=== PATIENT | female | born 1995 | race Caucasian/White ===

== ENCOUNTER 2023-11-25 15:06 | Emergency (ER) | payer BC, OTHER, SELFPAY ==
[2023-11-25] VITALS (20 sets, daily range): BP systolic 111–168; BP diastolic 20–95; PULSE 85–125; TEMP 36.8; O2SAT 97–99
--- NOTE | 2023-11-25 15:36 | ECG_ITS ---
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
--- NOTE | 2023-11-25 15:36 | XR_ITS ---
[facility] [id number] Patient Name: SUZANNE DAI MRN: [id number] date: 1995 Sex: F Assigned Patient Location: ER Current Patient Location: ED.MAIN Accession/Order Number: [id number] Exam Date: 11/25/2023 16:05 Report Date: 11/25/2023 16:27 At the request of: ELZA SCHULTZ Procedure: XR chest 1V EXAM: XR chest 1V HISTORY: SHORTNESS OF BREATH COMPARISON: None TECHNIQUE: AP view of the chest was obtained with portable technique at 3:58 PM. FINDINGS: Heart and mediastinal contours are unremarkable in appearance. No acute infiltrate or consolidations are seen. There is no obvious pneumothorax. Slight convexity of the dorsal spine to the right. XR/XR chest 1V IMPRESSION: No acute process seen in the chest. Electronically authenticated by: REGINALD BECK Date: 11/25/2023 16:27
--- NOTE | 2023-11-25 15:37 | ED.GENADUL1 ---
HPI HPI - General Adult General Chief complaint: Anxiety Stated complaint: sob, dizziness feels like passing out Time Seen by Provider: 11/25/23 15:32 Source: patient Mode of arrival: walk-in Limitations: no limitations History of Present Illness HPI narrative: 28-year-old female presents for feeling anxious and feels like her heart is going to jump out of her chest and she is short of breath. This started 45 minutes prior to arrival while she was at work. She has not had any recent stressful events and has no history of anxiety or panic attacks. No recent fever cough chest pain or similar symptoms. Symptoms have been continuous. Related Data Previous Rx's ?Medication ?Instructions ?Recorded alprazolam 0.5 mg tablet (Xanax) 0.5 mg PO TID PRN anxiety #14 tabs 11/25/23 Allergies Allergy/AdvReac Type Severity Reaction Status Date / Time amoxicillin [From Augmentin] Allergy Mild Rash Verified 11/25/23 15:21 clavulanic acid Allergy Mild Rash Verified 11/25/23 15:21 [From Augmentin] Sulfa (Sulfonamide Allergy Mild Rash Verified 11/25/23 15:21 Antibiotics) sulfamethoxazole Allergy Mild Rash Verified 11/25/23 15:21 [From Bactrim] trimethoprim [From Bactrim] Allergy Mild Rash Verified 11/25/23 15:21 Opioid HPI Opioid Management Most Recent Opioid Data: No Data to Display Review of Systems ROS Narrative A ten point review of systems is negative except as noted above. Exam Narrative Exam Narrative: Nurses note and vital signs reviewed and patient is not hypoxic. General: The patient appears in no acute respiratory distress Skin: Warm, dry, no pallor noted. There is no rash noted. Head: Normocephalic, atraumatic Eye: Normal conjunctiva, no drainage Ears, Nose, Mouth, and Throat: oral mucosa is moist. Nares patent. Cardiovascular: Regular Rate and Rhythm, tachycardia Respiratory: Patient is in no distress, no accessory muscle use, lungs are clear to auscultation, no wheezing, rales or rhonchi Back: non-tender GI: Soft and nontender Musculoskeletal: The patient has no evidence of calf tenderness, no pitting edema, symmetrical pulses noted bilaterally Neurological: A&O, normal speech, ambulatory without Psychiatric: Cooperative, anxious in appearance Constitutional Vital Signs, click to edit/add: Last Vital Signs Temp 98.2 F 05/24/24 15:21 Pulse 90 11/25/23 16:50 Resp 17 11/25/23 16:50 BP 111/94 H 11/25/23 16:42 Pulse Ox 97 11/25/23 15:33 O2 Del Method Room Air 11/25/23 15:21 Course Vital Signs Vital signs: Vital Signs Blood Pressure 142/77 H 11/25/23 14:44 Temperature 98.2 F 11/25/23 15:21 Pulse Rate 90 11/25/23 16:50 Respiratory Rate 17 11/25/23 16:50 Blood Pressure 111/94 H 11/25/23 16:42 Pulse Oximetry 97 11/25/23 15:33 Oxygen Delivery Method Room Air 11/25/23 15:21 Medical Decision Making MDM Narrative Medical decision making narrative: Her medical workup is negative. She was feeling improved after IV Ativan and will be sent home on a short course of Xanax. Findings were discussed thoroughly with the patient. Differential Diagnosis Differential Diagnosis: Anxiety, palpitations, cardiac dysrhythmia Lab Data Lab results reviewed: Yes I reviewed the patient's lab results Labs: Lab Results 11/25/23 Range/Units 15:43 WBC 11.9 H (4.0-11.0) 10^3/uL RBC 5.03 (4.20-5.40) 10^6/uL Hgb 15.3 (12.0-16.0) g/dL Hct 44.3 (36.0-48.0) % MCV 88.1 (81.0-99.0) fL MCH 30.4 (26.7-34.0) pg MCHC 34.5 (29.9-35.2) g/dL RDW 12.1 (11.0-15.0) % Plt Count 233 (150-450) 10^3/uL MPV 10.4 (9.5-13.5) fL Neut % (Auto) 61.1 (43.0-75.0) % Lymph % (Auto) 27.2 (20.5-60.0) % Davis % (Auto) 6.1 (1.7-12.0) % Eos % (Auto) 4.5 (0.9-7.0) % Baso % (Auto) 0.7 (0.2-2.0) % Neut # (Auto) 7.3 H (1.4-6.5) 10^3/uL Lymph # (Auto) 3.2 (1.2-3.8) 10^3/uL Davis # (Auto) 0.7 (0.3-0.8) 10^3/uL Eos # (Auto) 0.5 (0.0-0.7) 10^3/uL Baso # (Auto) 0.1 (0.0-0.1) 10^3/uL Abs Immat Gran (auto) 0.05 H (0.00-0.03) 10^3/uL Imm/Tot Granulo (auto) 0.4 (0.0-0.5) % Sodium 138 (136-145) mmol/L Potassium 3.4 L (3.5-5.1) mmol/L Chloride 102 (98-107) mmol/L Carbon Dioxide 21.9 (21.0-32.0) mmol/L Anion Gap 17.5 BUN 7.0 (7.0-18.0) mg/dL Creatinine 0.77 (0.55-1.02) mg/dL Est GFR ( Amer) >60 (>=60) Est GFR (Non-Af Amer) >60 (>=60) BUN/Creatinine Ratio 9.1 Glucose 123 H (74-106) mg/dL Calcium 9.8 (8.5-10.1) mg/dL Serum HCG, Qual Negative (NEGATIVE) Imaging Data Chest x-ray: Radiologist's impression: ITS Impressions Chest X-Ray 11/25/23 15:36 IMPRESSION: No acute process seen in the chest. Electronically authenticated by: REGINALD BECK Date: 11/25/2023 16:27 ECG Data Attestation: I personally reviewed and interpreted this ECG as follows: (EKG on my interpretation shows sinus tachycardia with a rate of 128) Discharge Plan Discharge Stand Alone Forms: Portal Instructions Chief Complaint: Anxiety Clinical Impression: Acute anxiety Patient Disposition: Home, Self-Care Time of Disposition Decision: 17:15 Condition: Good Mode of Transportation: Private Vehicle Prescriptions / Home Meds: New alprazolam [Xanax] 0.5 mg tablet 0.5 mg PO TID PRN (Reason: anxiety) Qty: 14 0RF Print Language: [place] Instructions: Anxiety (ED) Referrals: Physician,Non-Staff, MD [Primary Care Provider] - 1 week
[2023-11-25] MEDS: LORAZEPAM 2 MG/ML VIAL 0.5 MG IV (15:47)
[2023-11-25 16:20] LABS: Basophils Absolute Auto 0.1 10^3/uL (0.0-0.1); Basophils Percent Auto 0.7 % (0.2-2.0); Eosinophils Absolute Auto 0.5 10^3/uL (0.0-0.7); Eosinophils Percent Auto 4.5 % (0.9-7.0); Hematocrit 44.3 % (36.0-48.0); Hemoglobin 15.3 g/dL (12.0-16.0); Immature Granulocytes Abs Auto 0.05 10^3/uL (0.00-0.03); Immature Granulocytes Pct Auto 0.4 % (0.0-0.5); Lymphocytes Absolute Auto 3.2 10^3/uL (1.2-3.8); Lymphocytes Percent Auto 27.2 % (20.5-60.0); Mean Corpuscular HGB Conc 34.5 g/dL (29.9-35.2); Mean Corpuscular Hemoglobin 30.4 pg (26.7-34.0); Mean Corpuscular Volume 88.1 fL (81.0-99.0); Mean Platelet Volume 10.4 fL (9.5-13.5); Monocytes Absolute Auto 0.7 10^3/uL (0.3-0.8); Monocytes Percent Auto 6.1 % (1.7-12.0); Neutrophils Absolute Auto 7.3 10^3/uL (1.4-6.5); Neutrophils Percent Auto 61.1 % (43.0-75.0); Platelet Count 233 10^3/uL (150-450); Red Blood Count 5.03 10^6/uL (4.20-5.40); Red Cell Distribution Width 12.1 % (11.0-15.0); White Blood Count 11.9 10^3/uL (4.0-11.0)
[2023-11-25 16:27] LABS: Anion Gap 17.5; BUN Creatinine Ratio 9.1; Calcium 9.8 mg/dL (8.5-10.1); Carbon Dioxide 21.9 mmol/L (21.0-32.0); Chloride 102 mmol/L (98-107); Estimated GFR (African America >60 (>=60); Estimated GFR (Non-African Ame >60 (>=60); Glucose 123 mg/dL (74-106); Potassium 3.4 mmol/L (3.5-5.1); Sodium 138 mmol/L (136-145)
[2023-11-25 16:30] LABS: HCG Qualitative NEGATIVE (NEGATIVE)
== END 2023-11-25 17:37 | disposition home or self-care (01) ==
PROVIDERS: Emergency Provider Emergency Medicine
DX: F41.9 Anxiety disorder, unspecified (principal)
CPT/HCPCS: 36415; 71045; 80048; 84703; 85025; 93005; 96374; 99285

== ENCOUNTER 2024-04-23 11:53 | Emergency (ER) | payer BC, SELFPAY ==
[2024-04-23] VITALS (15 sets, daily range): BP systolic 109–143; BP diastolic 73–101; PULSE 73–90; TEMP 37; O2SAT 94–100; BMI 32.8
--- OUTSIDE RECORDS SUMMARY | 2024-04-23 12:04 | XMS_ITS | CCD ---
Author Organization [facility] Care Team Providers Care Scrap Sawyer Name Role Phone DR ESTHER ALLISON Admitting Unavailable DRAKE, DR SANTANA Attending Unavailable DRAKE, DR SANTANA Consulting Unavailable Easterwood, Shawna Unavailable NONE, XXXX Primary Care Physician Unavailab SIXTO Dodson Referring Unavailable SIXTO ORELLANA Attending Unavailable SIXTO ORELLANA Referring Unavailable SHAWNA DE JESUS Primary Care Physician Shivam Alvarez Attending Unavailable TAYA BALDERRAMA Attending Unavailable MAYRA, IRIS Stanford Attending UnavailMamta Bowden Attending Unavailable IRIS DE JESUS Attending Unavailable IRIS DE JESUS Admitting Unavailable DO Jesica Mccabe Attending Unavailable YOVANI De Jesus Primary Care Provider YOVANI De Jesus Attending Provider [phone] Shawna De Jesus Attending Unavailable Shawna De Jesus Primary Care Unavailable Shawna De Jesus Admitting Unavailable Mamta Us H Attending Unavailable Juliana Barton Attending Unavailable Juliana Barton Attending Unavailable SHAWNA DE JESUS Admitting Unavailable SHAWNA DE JESUS Attending Unavailable Jesica Mccabe Attending Unavailable Lev LACKEY Attending Unavailable SHAWNA DE JESUS Referring Unavailable Allergies Allergy Classification Reported Allergen(s) Allergy Type Date of Onset Reaction(s) Facility (7 sources) Amoxicillin / Clavulanate; Translations: [Augmentin] Drug Allergy 07-04-19 11 hives, vomiting [facility] (1 source) Sulfamethoxazole / Trimethoprim Drug Allergy 07-04-19 11 [facility] (9 sources) Amoxicillin / Clavulanate; Translations: [amoxicillin-clavul anate] Drug Allergy hives, vomiting [facility] (17 sources) Sulfamethoxazole / Trimethoprim; Translations: [sulfamethoxazole-t rimethoprim] Drug Allergy hives, vomiting [facility] (6 sources) Amoxicillin; Translations: [amoxicillin] Drug Allergy 11-29-19 Hives, hives, vomiting [facility] (6 sources) Clavulanate; Translations: [clavulanic acid] Drug Allergy 11-29-19 Hives, hives, vomiting [facility] (6 sources) Sulfamethoxazole; Translations: [sulfamethoxazole] Drug Allergy 11-29-19 Hives, hives, vomiting [facility] (6 sources) Sulfonamides (Antibiotic); Translations: [Sulfa (Sulfonamide Antibiotics)] Propensity to adverse reactions 11-29-19 [facility] (6 sources) Trimethoprim; Translations: [trimethoprim] Drug Allergy 11-29-19 Hives, hives, vomiting [facility] (4 sources) Sulfamethoxazole / Trimethoprim; Translations: [Septra] Drug Allergy [facility] (4 sources) Sulfamethoxazole / Trimethoprim; Translations: [Bactrim] Drug Allergy [facility] Medications Current Medications Medication Drug Class(es) Dates Sig (Normalized) Sig (Original) busPIRone hydrochloride 5 mg oral tablet (2 sources) Start: 04-05-2024 take 1 tablet by mouth three times daily busPIRone 5 mg Tab 5 mg = 1 tab(s), Oral, TID, # 90 tab(s), Refills(s) 0, Pharmacy: [facility] #[id number], 160, cm, 04/05/24 9:37:00 EDT, Height/Length Dosing, 83.7, kg, 04/05/24 9:37:00 EDT, Weight Dosing Start Date: 04/05/24 Status: Ordered dicyclomine hydrochloride 10 mg oral capsule (4 sources) Anticholinergic Start: 01-10-2024 dicyclomine 10 mg Cap Refills(s) 0 Start Date: 01/10/24 Status: Ordered Start: 12-28-2023 End: 01-04-2024 take 1 capsule by mouth four times daily Bentyl 10 mg Cap 10 mg = 1 cap(s), Oral, QID, X 7 day(s), # 28 cap(s), Refills(s) 0, [facility]: [id number], 160, cm, 12/28/23 10:54:00 EDT, Height/Length Dosing, 81.7, kg, 12/28/23 10:54:00 EDT, Weight Dosing Start Date: 12/28/23 Stop Date: 01/04/24 Status: Ordered ergocalciferol 1.25 mg oral capsule (3 sources) Provitamin D2 Compound Start: 03-19-2024 take 1250 ug by mouth every week Ergocalciferol (Vitamin D2) Active 1250 MCG PO every week March 19, 2024 12:00am levonorgestrel 0.479366 mg/hr intrauterine system (9 sources) Progestin, Progestin-containi ng Intrauterine Device Start: 11-25-2023 Levonorgestrel Active 1 DEVICE INTRAUTERI As Directed November 25, 2023 12:00am Mirena (52 MG) 2 0 MCG/DAY as directed Intrauterine Active linaclotide 0.145 mg oral capsule (2 sources) Guanylate Cyclase-C Agonist Start: 01-10-2024 take 1 capsule by mouth once daily Linzess 145 mcg oral capsule 145 mcg = 1 cap(s), Oral, Daily, # 30 cap(s), Refills(s) 5, [facility][id number], 160, cm, 01/10/24 13:34:00 EDT, Height/Length Dosing, 85, kg, 01/10/24 13:34:00 EDT, Weight Dosing Start Date: 01/10/24 Status: Ordered naproxen 500 mg oral tablet (5 sources) Nonsteroidal Anti-inflammatory Drug Start: 02-10-2023 take 1 tablet by mouth twice daily as needed for pain naproxen 500 mg Tab 500 mg = 1 tab(s), Oral, BID, PRN for pain, # 20 tab(s), Refills(s) 0, [facility]acy: [facility] #[id number], 160, cm, 02/10/23 1:25:00 EDT, Height/Length Dosing, 81.4, kg, 02/10/23 1:25:00 EDT, Weight Dosing Start Date: 02/10/23 Status: Ordered oxyCODONE hydrochloride 5 mg oral capsule (3 sources) Opioid Agonist Start: 02-10-2023 oxyCODONE 5 mg Cap 5 mg = 1 cap(s), Oral, q6hr, PRN Pain 8-10, # 4 cap(s), Refills(s) 0, [facility]acy: [facility][id number], 160, cm, 02/10/23 1:25:00 EDT, Height/Length Dosing, 81.4, kg, 02/10/23 1:25:00 EDT, Weight Dosing Start Date: 02/10/23 Status: Ordered pantoprazole 40 mg delayed release oral tablet (4 sources) Proton Pump Inhibitor Start: 12-28-2023 take 1 tablet by mouth once daily Protonix 40 mg Tab-DR 40 mg = 1 tab(s), Oral, Daily, # 30 tab(s), Refills(s) 0, [facility]: [facility] #[id number], 160, cm, 12/28/23 10:54:00 EDT, Height/Length Dosing, 81.7, kg, 12/28/23 10:54:00 EDT, Weight Dosing Start Date: 12/28/23 Status: Ordered sucralfate 1000 mg oral tablet (4 sources) Aluminum Complex Start: 01-10-2024 take 1 tablet by mouth four times daily sucralfate 1 g Tab take 1 tablet by mouth four times a day for 7 days Start Date: 01/10/24 Status: Ordered Start: 12-28-2023 End: 01-04-2024 take 1 tablet by mouth four times daily Carafate 1 gram Tab 1 gm = 1 tab(s), Oral, QID, X 7 day(s), # 28 tab(s), Refills(s) 0, [facility]acy: [facility] #[id number], 160, cm, 12/28/23 10:54:00 EDT, Height/Length Dosing, 81.7, kg, 12/28/23 10:54:00 EDT, Weight Dosing Start Date: 12/28/23 Stop Date: 01/04/24 Status: Ordered tenapanor 50 mg oral tablet (2 sources) Start: 04-05-2024 take 1 tablet by mouth twice daily Ibsrela 50 mg oral tablet 50 mg = 1 tab(s), Oral, BID, # 30 tab(s), Refills(s) 4, [id number], 160, cm, 04/05/24 9:37:00 EDT, Height/Length Dosing, 83.7, kg, 04/05/24 9:37:00 EDT, Weight Dosing Start Date: 04/05/24 Status: Ordered Zofran ODT 4 mg Tab-Dis (9 sources) Start: 12-28-2023 take 1 tablet by mouth every eight hours as needed for nausea Zofran ODT 4 mg Tab-Dis 4 mg = 1 tab(s), Oral, q8hr, PRN Nausea/Vomiting, # 20 tab(s), Refills(s) 0, Pharmacy: [facility] #[id number], 160, cm, 12/28/23 10:54:00 EDT, Height/Length Dosing, 81.7, kg, 12/28/23 10:54:00 EDT, Weight Dosing Start Date: 12/28/23 Status: Ordered Start: 02-10-2023 take 1 tablet by pippa th every eight hours as needed for nausea Zofran ODT 4 mg Tab-Dis 4 mg = 1 tab(s), Oral, q8hr, PRN Nausea/Vomiting, # 12 tab(s), Refills(s) 0, Pharmacy: [facility] #[id number], 160, cm, 02/10/23 1:25:00 EDT, Height/Length Dosing, 81.4, kg, 02/10/23 1:25:00 EDT, Weight Dosing Start Date: 02/10/23 Status: Ordered Completed/Discontinued Medications Medication Drug Class(es) Dates Sig (Normalized) Sig (Original) ALPRAZolam 0.5 mg oral tablet (5 sources) Benzodiazepine Start: 11-29-2023 End: 03-13-2024 take 1 tablet by mouth three times daily Alprazolam (Xanax) 0.5 mg tablet Discontinued 0.5 MG PO Three times daily November 29, 2023 12:00am March 13, 2024 3:51pm [facility]24 fluconazole 150 mg oral tablet (3 sources) Azole Antifungal Start: 03-19-2024 End: 04-17-2024 Fluconazole Discontinued 150 MG PO Q3D 3 March 19, 2024 12:00am April 17, 2024 3:40pm promethazine hydrochloride 25 mg oral tablet (3 sources) Phenothiazine Start: 05-28-2016 take 1 tablet by mouth every six hours for nausea and vomiting Phenergan 25 mg Tab 25 mg = 1 tab(s), Oral, q6hr, Take one by mouth every six hours for nausea and vomiting, # 10 tab(s), Refills(s) 0 Start Date: 05/28/16 Status: Ordered sodium fluoride 0.011 mg/mg toothpaste (5 sources) Start: 11-29-2023 End: 03-13-2024 Fluoride (Sodium) (Sf 5000 Plus) 1.1 % cream Discontinued 1 APPLIC DENTAL Daily November 29, 2023 12:00am March 13, 2024 3:51pm Problems Active Problems Problem Classification Problem Date Documented Da te Episodic/Chronic Abdominal pain (20 sources) Abdominal pain; Translations: [Unspecified abdominal pain] Onset: 02-10-2023 Episodic Conditions associated with dizziness or vertigo (4 sources) Dizziness; Translations: [Dizziness and giddiness] 03-13-2024 Episodic Genitourinary symptoms and ill-defined conditions (20 sources) Dysuria; Translations: [Dysuria] Onset: 03-26-2024 03-13-2024 Episodic Hemorrhoids (10 sources) Hemorrhoids; Translations: [Unspecified hemorrhoids] Episodic Immunizations and screening for infectious disease (1 source) Encounter for screening for human papillomavirus (HPV); Translations: [ENC SCREENING HUMAN PAPILLOMAVIRUS] Onset: 09-15-2021 Episodic Malaise and fatigue (8 sources) Fatigue; Translations: [Other fatigue] 03-13-2024 Episodic Miscellaneous mental health disorders (9 sources) Anxiety about body function or health; Translations: [Other symptoms and signs involving emotional state] 11-29-2023 Episodic Nausea and vomiting (7 sources) Nausea; Translations: [Nausea] Onset: 12-28-2023 Episodic Nonspecific chest pain (6 sources) Chest pain; Translations: [Chest pain, unspecified] 03-16-2024 Episodic Nutritional deficiencies (4 sources) Vitamin D deficiency; Translations: [Vitamin D deficiency, unspecified] 03-21-2024 Chronic Other aftercare (1 source) Encounter for follow-up examination after completed treatment for conditions other than malignant neoplasm Episodic Other connective tissue disease (3 sources) Neuropathic pain; Translations: [Neuralgia and neuritis, unspecified] 03-16-2024 Episodic Other connective tissue disease (5 sources) Neuralgia and neuritis, unspecified; Translations: [Neuralgia, neuritis, and radiculitis, unspecified] 03-13-2024 Episodic Other female genital disorders (2 sources) Pruritus of vagina; Translations: [Other specified noninflammatory disorders of vagina] 03-21-2024 Episodic Other female genital disorders (2 sources) Other specified noninflammatory disorders of vagina; Translations: [Pruritus of genital organs] 03-19-2024 Episodic Other gastrointestinal disorders (11 sources) Chronic idiopathic constipation; Translations: [Chronic idiopathic constipation] 11-25-2023 Chronic Other gastrointestinal disorders (2 sources) Chronic idiopathic constipation Chronic Other gastrointestinal disorders (6 sources) Irritable bowel syndrome characterized by constipation; Translations: [Irritable bowel syndrome with constipation] Onset: 01-10-2024 Chronic Other gastrointestinal disorders (1 source) Diarrhea; Translations: [Diarrhea, unspecified] Onset: 12-28-2023 Episodic Other gastrointestinal disorders (2 sources) Swollen abdomen; Translations: [Abdominal distension (gaseous)] Onset: 01-10-2024 Episodic Other gastrointestinal disorders (4 sources) Abdominal bloating 01-10-2024 Episodic Other screening for suspected conditions (not mental disorders or infectious disease) (11 sources) Encounter for screening for malignant neoplasm of cervix; Translations: [No current problems or disability] Onset: 09-14-2021 Episodic Spondylosis; intervertebral disc disorders; other back problems (10 sources) Low back pain; Translations: [Low back pain] 03-13-2024 Episodic Past or Other Problems Problem Classification Problem Date Documented Da te Episodic/Chronic Unclassified (5 sources) Ankle fracture 06-15-2023 Results Test Name Value Interpretation Reference Range Facility CHEMISTRYOrdered By: SYSTEM SYSTEM on 04-21-2024 CRP [Mass/Vol] 0.6 mg/dL Normal <=1.9mg/dL Remisol Ch em Iron [Mass/Vol] 99 ug/dL Normal 35 - 153 mcg/dL Remisol Chem Iron binding capacity [Mass/Vol] 382 ug/dL Normal 250 - 400 mcg/dL Remisol Chem Transferrin [Mass/Vol] 273 mg/dL Normal 200 - 370 mg/dL Remisol Chem HEMATOLOGYOrdered By: Cyndie Zamarripa on 04-21-2024 ESR (Bld) [Velocity] 10 mm/h Normal 0 - 34 mm/hr FT Lee Ambulatory Visit Summaryon 1 Ambulatory Visit Summary Ambulatory Visi t Summary JACK REA :1995 Visit Date:04/05/2024 Ambulatory Visit Instructions Your Diagnosis Irritable bowel syndrome with constipation Bloating Generalized abdominal pain Nausea and vomiting Your Care Team Attending Physician - Oralia BURKS, Juliana Pruett Primary Care Physician - SHAWNA DE JESUS CNP This Is Your Medications List busPIRone (busPIRone 5 mg Tab) tenapanor (Ibsrela 50 mg oral tablet) Procedures Performed Ts and As - Tonsillectomy and adenoidectomy (1998). Discharge Vitals Heart Rate (Peripheral) 78 Blood Pressure 105/72 Height 160 cm Height 63 in Weight 83.7 kg Weight 184.14 lb BMI 32.7 Medications What How Much When Why Instructions New busPIRone (busPIRone 5 mg Tab) 1 Tablets By Mouth 3 times a day Irritable bowel syndrome with constipation Bloating Generalized abdominal pain Nausea and vomiting Pickup at [facility] #[id number] New tenapanor (Ibsrela 50 mg oral tablet) 1 Tablets By Mouth 2 times a day Irritable bowel syndrome with constipation Bloating Generalized abdominal pain Nausea and vomiting Refills: 4 Pickup at [facility] #[id number] [id number] [address] [place], [place] [id number] [phone] Allergies Augmentin Bactrim Septra (hives, vomiting) Problems Ongoing - Any problem that you are currently receiving treatment for. Bloating Denies Generalized abdominal pain Irritable bowel syndrome with constipation Nausea and vomiting Right flank pain Patient Survey You may receive a survey via text or e-mail asking about your office visit. Please share your experience with us by completing your survey. We appreciate your feedback and thank you for choosing us for your care. [facility] Gastroenterology Office/Clin ic Noteon 04-05-2024 Gastroenterology Office/Clinic Note Gastroenterology Office/Clinic Note Chief Complaint Nausea, bloating Abdominal pain and constiaption. HPI Staff This is a 29 year old female who presents today for a 3 month follow-up with complaints of bloating. Started Linzess 145 at last visit- working? Patient stopped after a few weeks. Increased anxiety and hot flashes. Patient c/o abdomen hard, constant side/ flank pain bilateral and right side more often. Every time she eats she gets nauseas. New onset of headaches within a week. Abdominal pain and nausea worse when she lays down. Alternating bowel habits. Last visit w/ Dr Barton History of Present Illness PT with recurrent flares of abd pain every other day stomach is hard and full more constipated pt moves her bowels once a day but not good BMs some straining and some incomplete evacuation had diarrhea once which is not normal for her pt has been dealing with this for years normal stress 2 vaginal deliveries no hx of abuse pt feels gassy and bloated pt tried some OTC laxatives- miralax and duculoax on Levsin Assessment/Plan 1. Right flank pain (R10.9: Unspecified abdominal pain) 2. Nausea and vomiting (R11.2: Nausea with vomiting, unspecified) 3. Irritable bowel syndrome with constipation (K58.1: Irritable bowel syndrome with constipation) 4. Generalized abdominal pain (R10.84: Generalized abdominal pain) 5. Bloating (R14.0: Abdominal distension (gaseous)) Start Linzess 145 mcg daily and titrate if needed Advised to continue to use MiraLAX/senna and titrate to have 1-2 bowel moods every day Advised to use squatty potty and massage the colon Continue Levsin, PPI, and Carafate Patient will benefit from eating prunes and kiwi fruit Might benefit from neuromodulator in the future Might benefit from other agents for constipation in the future History of Present Illness I have reviewed HPI staff note, most recent labs and imaging, more than 30 minutes spent reviewing the chart, during encounter, placing orders and counseling the patient. Pt anxiety got worse after Linzess also got hot flashes Pt still with constipation : she goes for days without going some feeling that she needs to go but nothing comes out pt with straining no incomplete evacuation feels bloated tried metamucil and fiber and miralax squatty potty did not help bad side pain in both sides good appetite Review of Systems PHQ Score Initial Depression Screen Score: 0 SCORE All systems reviewed, negative except as mentioned above Physical Exam Vitals & Measurements HR: 78(Peripheral) BP: 105/72 HT: 63 in HT: 160 cm WT: 83.7 kg WT: 184.14 lb BMI: 32.7 General: alert, no acute distress HEENT: atraumatic normocephalic Cardiovascular: regular rate and rhythm, normal peripheral perfusion Respiratory: Lungs CTA, respirations non labored Extremities: no deformity, no trauma Abdomen: Benign, soft, nontender nondistended Assessment/Plan 1. Irritable bowel syndrome with constipation (K58.1: Irritable bowel syndrome with constipation) Ordered: busPIRone, 5 mg = 1 tab(s), Oral, TID, # 90 tab(s), Refills(s) 0, Pharmacy: [facility] #[id number], 160, cm, 04/05/24 9:37:00 EDT, Height/Length Dosing, 83.7, kg, 04/05/24 9:37:00 EDT, Weight Dosing tenapanor, 50 mg = 1 tab(s), Oral, BID, # 30 tab(s), Refills(s) 4, Pharmacy: [facility] #[id number], 160, cm, 04/05/24 9:37:00 EDT, Height/Length Dosing, 83.7, kg, 04/05/24 9:37:00 EDT, Weight Dosing 2. Bloating (R14.0: Abdominal distension (gaseous)) Ordered: busPIRone, 5 mg = 1 tab(s), Oral, TID, # 90 tab(s), Refills(s) 0, Pharmacy: [facility] #[id number], 160, cm, 04/05/24 9:37:00 EDT, Height/Length Dosing, 83.7, kg, 04/05/24 9:37:00 EDT, Weight Dosing tenapanor, 50 mg = 1 tab(s), Oral, BID, # 30 tab(s), Refills(s) 4, Pharmacy: [facility] #[id number], 160, cm, 04/05/24 9:37:00 EDT, Height/Length Dosing, 83.7, kg, 04/05/24 9:37:00 EDT, Weight Dosing 3. Generalized abdominal pain (R10.84: Generalized abdominal pain) Ordered: busPIRone, 5 mg = 1 tab(s), Oral, TID, # 90 tab(s), Refills(s) 0, Pharmacy: [facility] #[id number], 160, cm, 04/05/24 9:37:00 EDT, Height/Length Dosing, 83.7, kg, 04/05/24 9:37:00 EDT, Weight Dosing tenapanor, 50 mg = 1 tab(s), Oral, BID, # 30 tab(s), Refills(s) 4, Pharmacy: [facility] #[id number], 160, cm, 04/05/24 9:37:00 EDT, Height/Length Dosing, 83.7, kg, 04/05/24 9:37:00 EDT, Weight Dosing 4. Nausea and vomiting (R11.2: Nausea with vomiting, unspecified) Ordered: busPIRone, 5 mg = 1 tab(s), Oral, TID, # 90 tab(s), Refills(s) 0, Pharmacy: [facility] #[id number], 160, cm, 04/05/24 9:37:00 EDT, Height/Length Dosing, 83.7, kg, 04/05/24 9:37:00 EDT, Weight Dosing linaclotide, 145 mcg = 1 cap(s), Oral, Daily, # 30 cap(s), Refills(s) 5, Pharmacy: [facility] #[id number], 160, cm, 01/10/24 13:34:00 EDT, Height/Length Dosing, 85, kg, 01/10/24 13:34:00 EDT, Weight Dosing tenapanor, 50 mg = 1 tab(s), (more content not included)... Normal [facility] Comment on above: Result Comment: Elec tronically Signed By: Oralia BURKS, Juliana Pruett\.br\Date and Time Signed: 10/03/24 09:54 EDT Alanine aminotransferase [En zymatic activity/volume] in Serum or PlasmaOrdered By: Shawna De Jesus on 03-26-2024 ALT [Catalytic activity/Vol] 18 U/L 7-52 [facility] Comment on above: Performed By: #### C HECTOR DasFX A1C, FE PRO #### [facility] [address] Albumin [Mass/volume] in Ser um or Plasma by Bromocresol green (BCG) dye binding methoOrdered By: Shawna De Jesus on 03-26-2024 Albumin BCG dye [Mass/Vol] 4.6 g/dL 3.5-5.7 [facility] Alkaline phosphatase [Enzyma tic activity/volume] in Serum or PlasmaOrdered By: Shawna De Jesus on 03-26-2024 ALP [Catalytic activity/Vol] 68 U/L 34-104 [facility] Comment on above: Performed By: #### C HECTOR DasFX A1C, FE PRO #### [facility] [address] Aspartate aminotransferase [ Enzymatic activity/volume] in Serum or PlasmaOrdered By: Shawna De Jesus on 03-26-2024 AST [Catalytic activity/Vol] 17 U/L 13-39 [facility] Comment on above: Performed By: #### C HECTOR DasFX A1C, FE PRO #### [facility] [address] Bilirubin Test strip Ql (U)O rdered By: Shawna De Jesus on 03-26-2024 Bilirubin Ql (U) Negative Negative [facility] Bilirubin.total [Mass/volume ] in Serum or PlasmaOrdered By: Shawna De Jesus on 03-26-2024 Bilirubin [Mass/Vol] 0.6 mg/dL 0.3-1.0 [facility] Comment on above: Performed By: #### C HECTOR DasFX A1C, FE PRO #### [facility] [address] CMP with reflex to A1Con Albumin [Mass/Vol] 4.6 g/dL Normal 3.5-5.7 [facility] Comment on above: Performed By: #### C MP wRFX A1C, FE PRO #### [facility] [address] [place] [address] [place] GFR/1.73 sq M.predicted MDRD (S/P/Bld) [Vol rate/Area] mL/min/{1.73_m2} Normal [facility] Comment on above: Performed By: #### C MP wRFX A1C, FE PRO #### [facility] [address] [place] [address] [place] Calcium [Mass/volume] in Ser um or PlasmaOrdered By: Shawna De Jesus on 03-26-2024 Calcium [Mass/Vol] 9.6 mg/dL 8.6-10.3 [facility] Comment on above: Performed By: #### C MP wRFX A1C, FE PRO #### [place] [address] [place] Carbon dioxide, total [Moles /volume] in Serum or PlasmaOrdered By: Shawna De Jesus on 03-26-2024 CO2 [Moles/Vol] 28.9 mmol/L 21.0-31.0 [facility] Comment on above: Performed By: #### C MP wRFX A1C, FE PRO #### [place] [address] [place] Chloride [Moles/volume] in S narendra or PlasmaOrdered By: Shawna De Jesus on 03-26-2024 Chloride [Moles/Vol] 106 mmol/L 98-107 [facility] Comment on above: Performed By: #### C MP wRFX A1C, FE PRO #### [facility] [address] [place] [address] [place] Color of Urine by AutoOrdere d By: Shawna De Jesus on 03-26-2024 Color (U) Colorless Yellow [facility] Comment on above: Order Comment: Name Collection Type:: Clean-Voided Midstream Performed By: #### U A, CUU #### [place] [address] [place] Creatinine [Mass/volume] in Serum or PlasmaOrdered By: Shawna De Jesus on 03-26-2024 Creatinine [Mass/Vol] 0.72 mg/dL 0.60-1.20 [facility] Comment on above: Performed By: #### C MP wRFX A1C, FE PRO #### [facility] [address] [place] [id number] [place] FE PROon 03-26-2024 % Iron Saturation 24.5 % Normal 20-50 [facility] Comment on above: Performed By: #### C MP wRFX A1C, FE PRO #### [facility] [address] [place] [id number] [facility] Total Iron Binding Capacity 417 ug/dL Normal 255-450 [facility] Comment on above: Performed By: #### C MP wRFX A1C, FE PRO #### [facility] [address] [place] [id number] [place] Ferritin [Mass/volume] in Se rum or PlasmaOrdered By: Shawna De Jesus on 03-26-2024 Ferritin [Mass/Vol] 37.2 ng/mL 11.0-306.8 [facility] Comment on above: Result Comment: PERF ORMED BY: [place] [address] PATHOLOGIST [employer]LECTRON[employer] ASSEMBLER LEONARDO LARA M.D. Performed By: #### C MP wRFX A1C, FE PRO #### [facility] [address] [place] [id number] [place] Glucose [Mass/volume] in Ser um or PlasmaOrdered By: Shawna De Jesus on 03-26-2024 Glucose [Mass/Vol] 93 mg/dL 70-100 [facility] Comment on above: Performed By: #### C MP wRFX A1C, FE PRO #### [facility] [address] [place] [id number] [place] Glucose [Mass/volume] in Uri ne by Test stripOrdered By: Shawna De Jesus on 03-26-2024 Glucose Test strip (U) [Mass/Vol] Normal mg/dL Normal [facility] Hemoglobin Test strip Ql (U) Ordered By: Shawna De Jesus on 03-26-2024 Hemoglobin Ql (U) Negative Negative [facility] Iron [Mass/volume] in Serum or PlasmaOrdered By: Shawna De Jesus on 03-26-2024 Iron [Mass/Vol] 102 ug/dL 50-212 [facility] Comment on above: Performed By: #### C MP wRFX A1C, FE PRO #### [facility] [address] [place] [address] [place] Iron binding capacity [Mass/ volume] in Serum or PlasmaOrdered By: Shawna De Jesus on 03-26-2024 Iron binding capacity [Mass/Vol] 417 ug/dL 255-450 [facility] Iron saturation [Mass Fracti on] in Serum or PlasmaOrdered By: Shawna De Jesus on 03-26-2024 Iron saturation [Mass fraction] 24.5 % 20-50 [facility] Ketones [Presence] in Urine by Test stripOrdered By: Shawna De Jesus on 03-26-2024 Ketones Ql (U) Negative Negative [facility] Comment on above: Order Comment: Name Collection Type:: Clean-Voided Midstream Performed By: #### U A, CUU #### [facility] [address] Laboratory - Microbiology an d Antimicrobial susceptibilityOrdered By: Shawna De Jesus on 03-26-2024 Bacteria identified Cx Nom (U) 2 Days [facility] Leukocyte esterase [Presence ] in Urine by Test stripOrdered By: Shawna De Jesus on 03-26-2024 Leukocyte esterase Test strip Ql (U) Negative Negative [facility] Comment on above: Order Comment: Name Collection Type:: Clean-Voided Midstream Performed By: #### U A, CUU #### [facility] [address] [place] [id number] [place] Nitrite Test strip Ql (U)Ord ered By: Shawna De Jesus on 03-26-2024 Nitrite Ql (U) Negative Negative [facility] No Panel InformationOrdered By: Shawna De Jesus on 03-26-2024 Estimated GFR (CKD-EPI) > 60.0 mL/Min [facility] Creatinine Clearance (Chem N/A [facility] Potassium [Moles/volume] in Serum or PlasmaOrdered By: Shawna De Jesus on 03-26-2024 Potassium [Moles/Vol] 4.3 mmol/L 3.5-5.1 [facility] Comment on above: Performed By: #### C MP wRFX A1C, FE PRO #### [address] Protein Test strip (U) [Mass /Vol]Ordered By: Shawna De Jesus on 03-26-2024 Protein (U) [Mass/Vol] Negative Negative [facility] Protein [Mass/volume] in Ser um or PlasmaOrdered By: Shawna De Jesus on 03-26-2024 Protein [Mass/Vol] 6.4 g/dL 6.4-8.9 [facility] Comment on above: Performed By: #### C MP wRFX A1C, FE PRO #### [address] Serum globulin measurement b y calculation (mass/volume)Ordered By: Shawna De Jesus on 03-26-2024 Globulin (S) [Mass/Vol] 1.8 g/dL [facility] Comment on above: Performed By: #### C MP wRFX A1C, FE PRO #### [address] Serum or plasma albumin/glob ulin mass ratioOrdered By: Shawna De Jesus on 03-26-2024 Albumin/Globulin [Mass ratio] 2.6 {ratio} [facility] Comment on above: Performed By: #### C MP wRFX A1C, FE PRO #### [address] Serum or plasma anion gap de terminationOrdered By: Shawna De Jesus on 03-26-2024 Anion gap [Moles/Vol] 10.4 mmol/L 6.0-15.0 [facility] Comment on above: Performed By: #### C MP wRFX A1C, FE PRO #### [address] Sodium [Moles/volume] in Ser um or PlasmaOrdered By: Shawna De Jesus on 03-26-2024 Sodium [Moles/Vol] 141 mmol/L 136-145 [facility] Comment on above: Performed By: #### C MP wRFX A1C, FE PRO #### [facility] [address] Specific gravity Test strip (U) [Rel density]Ordered By: Shawna De Jesus on 03-26-2024 Specific gravity (U) [Rel density] 1.001 1.001-1.030 [facility] Transferrin [Mass/volume] in Serum or PlasmaOrdered By: Shawna De Jesus on 03-26-2024 Transferrin [Mass/Vol] 298 mg/dL 203-362 [facility] Comment on above: Performed By: #### C MP wRFX A1C, FE PRO #### [facility] [address] US renal BIon 03-26-2024 US renal BI [facility] [place] [address] [place] [address] Ultrasound Report Signed Patient: Jack Rea MR#: [id number] 53 : 1995 Acct:[id number] Age/Sex: 29 / F ADM Date: 03/26/24 Loc: Room: Type: [facility] Attending Dr: Shawna De Jesus APRN Ordering Provider: Shawna De Jesus APRN Date of Service: 03/26/24 US/US renal BI: R31.9 - Hematuria, unspecified Copies to: Shawna De Jesus APRN BILATERAL RENAL AND BLADDER ULTRASOUND CLINICAL HISTORY: Hematuria, bilateral flank pain nausea and vomiting for 3 months. COMPARISON: None FINDINGS: Estimation of renal size is approximately 11.21 cm on the right and 11.43 cm on the left. No contour deforming mass, shadowing stone or hydronephrosis. The urinary bladder is partially distended with a volume of 748.72 ml. No shadowing stone or focal lesion. No significant postvoid residual. US/US renal BI IMPRESSION: No acute findings. Impression dictated by: Misael Justice Jr., D.O.03/26/2024 11:09 AM Dictation Location: [place] [address] Tech: Hilary Rodriguez Transcribed By: LISA 03/26/24 110 Dictated By: Misael Justice Jr, DO 03/26/24 110 Signed By: 03/26/24 110 Normal [facility] Urea nitrogen [Mass/volume] in Serum or PlasmaOrdered By: Shawna De Jesus on 03-26-2024 Urea nitrogen [Mass/Vol] 5 mg/dL Low 01-25 [facility] Comment on above: Performed By: #### C MP wRFX A1C, FE PRO #### [place] [address] [place] Urinalysison 03-26-2024 Bilirubin,Urine Negative Normal Negative [facility] Comment on above: Order Comment: Name Collection Type:: Clean-Voided Midstream Performed By: #### U A, CUU #### [address] Glucose Ql (U) Normal Normal Normal [facility] Comment on above: Order Comment: Name Collection Type:: Clean-Voided Midstream Performed By: #### U A, CUU #### [place] [address] [place] Nitrite,Urine Negative Normal Negative [facility] Comment on above: Order Comment: Name Collection Type:: Clean-Voided Midstream Performed By: #### U A, CUU #### [place] [id number] [place] Occult Blood,Urine Negative Normal Negative [facility] Comment on above: Order Comment: Name Collection Type:: Clean-Voided Midstream Result Comment: PERF ORMED BY: [place] [address] PATHOLOGIST ELECTRONICS ASSEMBLER LEONARDO LARA M.D. Performed By: #### U A, CUU #### [place] [address] [place] Protein,Urine Negative Normal Negative [facility] Comment on above: Order Comment: Name Collection Type:: Clean-Voided Midstream Performed By: #### U A, CUU #### [address] Specificy [place],Urine 1.001 Normal 1.001-1.030 [facility] Comment on above: Order Comment: Name Collection Type:: Clean-Voided Midstream Performed By: #### U A, CUU #### [address] Urobilinogen,Urine Normal Normal Normal [facility] Comment on above: Order Comment: Name Collection Type:: Clean-Voided Midstream Performed By: #### U A, CUU #### [address] Urine Cultureon 03-26-2024 Bacteria identified Cx Nom (U) <9,000 colonies/ml mixed bacterial skin contaminants 2 Days PERFORMED BY: [place] [address] PATHOLOGIST ELECTRONICS ASSEMBLER LEONARDO LARA M.D. Normal [facility] Comment on above: Performed By: #### U A, CUU #### [address] Urine appearanceOrdered By: Shawna De Jesus on 03-26-2024 Appearance (U) Clear Clear [facility] Comment on above: Order Comment: Name Collection Type:: Clean-Voided Midstream Performed By: #### U A, CUU #### [address] Urobilinogen Test strip (U) [Mass/Vol]Ordered By: Shawna De Jesus on 03-26-2024 Urobilinogen (U) [Mass/Vol] Normal mg/dL Normal [facility] pH of Urine by Test stripOrd ered By: Shawna De Jesus on 03-26-2024 pH (U) 7.0 [pH] 5.0-9.0 [facility] Comment on above: Order Comment: Name Collection Type:: Clean-Voided Midstream Performed By: #### U A, CUU #### [facility] [address] Abdomen/Pelvis w/ Contras ton 03-21-2024 CT Abdomen/Pelvis w/ Contrast Exam Date/Time: 03/20/2024 23:53 EDT Reason for Exam: ABDOMINAL PAIN, ACUTE, NONLOCALIZED;Other (please specify) Report IMPRESSION: NO EVIDENCE OF ACUTE ABDOMINAL OR PELVIC PATHOLOGY.. CLINICAL HISTORY: ABDOMINAL PAIN, ACUTE, NONLOCALIZED. COMPARISON: 12/28/2023. COMMENT: Images were obtained following the administration of Intravenous contrast. The gallbladder is partially contracted, but no radiopaque gallstone, no gallbladder wall thickening, no pericholecystic inflammatory reaction, nor biliary ductal dilatation is noted. The liver, spleen, pancreas, adrenal glands, and kidneys are normal in appearance. Of incidental note, there is a small area of accessory splenic tissue medial to the spleen. The renal collecting systems are not dilated. No retroperitoneal lymphadenopathy is evident. The abdominal aorta is normal. No aneurysm is noted. Evaluation of bowel is limited. The bowel loops are not dilated, and there is no evidence of bowel obstruction. The appendix is normal. There are small nonspecific mesenteric lymph nodes in the right abdomen. No mesenteric inflammatory reaction is evident. Fecal material in the colon limits evaluation. There is no evidence of diverticulitis. No abdominal inflammatory complex nor free air nor free fluid is noted. The uterus is anteverted and there is an IUD within the uterine fundus and upper body centrally. There are small follicular ovarian cysts bilaterally. The urinary bladder is unremarkable. No pelvic lymphadenopathy is evident. The visualized bony structures are unremarkable. All CT scans at this facility use dose modulation, iterative reconstruction, and/or weight based dosing when appropriate to reduce radiation dose to as low as reasonably achievable. Unless otherwise stated, incidental findings identified in this report do not require routine follow-up imaging. Ordering Provider: Jesica Mccabe FINAL REPORT Dictated: 03/21/2024 8:18 am Samuel Gar M.D. Signed (Electronic Signature): 03/21/2024 8:18 am Signed by: Samuel Gar M.D. Transcribed by: DAVID Technologist: BRIAN Technical Comments GFR (mL/min/1/73m2) n/a-age Contrast: Isovue 300 Contrast amount in ml's: 100 Normal [facility] ED Clinical Summaryon 2023 ED Clinical Summary ED Clinical Summary [address] [address] ED Clinical Summary Person Information Name: JACK REA [place] Age: 29 Years : 1995 Sex: Female Language: Chadian PCP: SHAWNA DE JESUS CNP Marital Status: Phone: [phone] Visit Id: Visit Reason: Weakness or fatigue; Back pain; Dysuria; ABD PAIN, BACK PAIN Speciality: Acuity: 3 Enc Type: Emergency Med Service: Emergency Arrival: 03/20/2024 22:05:10 Discharge: 03/21/2024 01:58:36 LOS: 000 03:53 Checkin: 03/20/2024 22:05:10 Checkout: 03/21/2024 01:58:36 Dispo Type: Home (Routine DC) EVENTS: Event Name Event Status Request Date/Time Start Date/Time Complete Date/Time Arrive Complete 03/20/2024 22:05:10 03/20/2024 22:05:10 03/20/2024 22:05:10 Document Home Meds Request 03/20/2024 22:05:10 Triage Complete 03/20/2024 22:05:10 03/20/2024 22:16:12 03/20/2024 22:16:12 Registration Complete 03/20/2024 22:07:51 03/20/2024 22:07:51 03/20/2024 22:07:51 Reg Complete Request 03/20/2024 22:07:51 Reg Bed Request Complete 03/20/2024 22:07:51 03/20/2024 22:07:51 03/20/2024 22:07:51 EKG Complete 03/20/2024 22:14:27 03/20/2024 22:42:55 Dr Exam Complete 03/20/2024 22:14:43 03/20/2024 22:14:43 03/20/2024 22:14:43 Registration Start 03/20/2024 22:14:43 03/20/2024 22:20:11 Bed Assign Complete 03/20/2024 22:20:11 03/20/2024 22:20:11 03/20/2024 22:20:11 RN Exam Complete 03/20/2024 22:20:11 03/20/2024 23:39:28 03/20/2024 23:39:28 Pending Labs Complete 03/20/2024 22:34:48 03/20/2024 23:48:35 Lab Complete 03/20/2024 22:34:48 03/20/2024 23:48:35 Urine Collect Complete 03/20/2024 22:34:49 03/20/2024 23:48:35 CT Complete 03/20/2024 22:53:28 03/20/2024 23:37:46 03/20/2024 23:53:52 Meds Admin Complete 03/20/2024 22:53:28 03/20/2024 23:19:34 Pending Labs Complete 03/20/2024 22:53:28 03/20/2024 23:58:15 Lab Complete 03/20/2024 22:53:28 03/20/2024 23:42:26 X-Ray Complete 03/20/2024 22:53:28 03/20/2024 23:44:09 03/21/2024 00:12:26 Pending Labs Complete 03/20/2024 23:15:05 03/20/2024 23:15:05 03/20/2024 23:42:26 Lab Complete 03/20/2024 23:15:05 03/20/2024 23:15:05 03/20/2024 23:42:26 Meds Admin Complete 03/20/2024 23:50:22 03/21/2024 00:44:12 Wet Read Request 03/21/2024 00:12:26 Discharge Complete 03/21/2024 01:38:04 03/21/2024 01:58:40 03/21/2024 01:58:40 Transfer Complete 03/21/2024 01:58:40 03/21/2024 01:58:40 03/21/2024 01:58:40 ADDRESS: [address] [place] [id number] PHYS DOC NOTES: MEDICAL INFORMATION: Prescriptions Given: New Medications [id number], [address] [place], [place] [id number], [phone] methocarbamol (Robaxin 500 mg Tab) 1 Tablets By Mouth 3 times a day for 3 Days. Refills: 0. oxybutynin (oxybutynin 5 mg Tab) 1 Tablets By Mouth 3 times a day as needed for urinary discomfort. Refills: 0. Medications to Continue Taking That Have Changed [id number], [address] [place], [place] [phone], [phone] START: naproxen (Naprosyn 500 mg Tab) 1 Tablets By Mouth 2 times a day as needed for pain. Refills: 0. Other Medications START: naproxen (naproxen 500 mg Tab) 1 Tablets By Mouth 2 times a day as needed for pain. Refills: 0. Medications to Continue with No Changes Other Medications dicyclomine (dicyclomine 10 mg Cap) linaclotide (Linzess 145 mcg oral capsule) 1 Capsules By Mouth every day. Refills: 5. ondansetron (Zofran ODT 4 mg Tab-Dis) 1 Tablets By Mouth every 8 hours as needed Nausea/Vomiting. Refills: 0. ondansetron (Zofran ODT 4 mg Tab-Dis) 1 Tablets By Mouth every 8 hours as needed Nausea/Vomiting. Refills: 0. pantoprazole (Protonix 40 mg Tab-DR) 1 Tablets By Mouth every day. Refills: 0. sucralfate (sucralfate 1 g Tab) take 1 tablet by mouth four times a day for 7 days. PATIENT EDUCATION INFORMATION: Instructions: Pain Without a Known Cause; Nausea, Adult, [id number]-tg-[id number]; Dysuria Follow up: With: Address: When: Princess Baker In 3 days 03/24/2024 Comments: You can take the medications as prescribed as needed for pain. Please follow-up with your primary care doctor in the next 2 to 3 days for further evaluation and management. Please return to the ED for any new or worsening symptoms. With: Address: When: SHAWNA DE JESUS [address] [facility] [place] [phone] Business (1) In 3 days DIAGNOSIS: Bilateral back pain; Dysuria Normal [facility] ED Note-Physicianon 03-21-20 ED Note-Physician ED Note-Physician Basic Information Time Seen: Jesica Mccabe DO 03/20/2024 22:14 Chief Complaint Lower Back pain that has radiated up, nausea, dizziness, urinary frequency, bladder pain and spasms, fatigue, tingling to face intermittently for months and worsened past few days. Recent testing as outpatient. History of Present Illness Patient is a 2-year-old female with no past medical history presenting to the ED for evaluation of lower back pain, urinary frequency, bladder pain and spasms fatigue in addition to tingling. Patient states she has been having intermittent symptoms for the last several months however has had worsening urinary symptoms for the last 2 to 3 days. Patient states she saw her primary care doctor who recently started her on a medication to treat yeast in her urine patient states did not pick this up has not started this. Patient also notes she has been having some shortness of breath. Review of Systems A 10 point review of systems is negative except as noted above. Medical and Surgical History: Reviewed and noted Social history: Lives at home Tobacco: Denies Physical Exam Vitals & Measurements T: 36.8 ?C(Oral) HR: 82(Peripheral) RR: 16 BP: 119/85 SpO2: 94% HT: 160 cm WT: 85.2 kg BMI: 33.28 General: Well developed, non toxic appearing, no acute distress HEENT: Head atraumatic, Mucosa moist, hearing grossly normal Neck: No JVD, tracheal deviation Cardiac: Regular rate, rhythm, no murmurs, or gallops, 2+ radial pulses Respiratory: Lungs clear to auscultation B/L, normal respiratory effort Abdomen: Soft non tender, no rebound or guarding, no peritoneal signs Extremities: No edema noted in the LE B/L, no tenderness to palpation Neurologic: Alert and oriented, speech clear Skin: No rashes or lesions Psych: Appropriate mood and behavior Medical Decision Making MEDICAL DECISION MAKING Number and Complexity of Problems Differential Diagnosis: [] [facility] Data External documents reviewed: [] My EKG interpretation: [] My CT interpretation: [] My X-ray interpretation: [] My Ultrasound interpretation: [] Decision rules/scores evaluated: [] Discussed with: [] Treatment and Disposition ED Course: Patient is a 29-year-old female presenting to the ED for evaluation of urinary frequency bladder pain and spasms, fatigue, multiple symptoms. Patient symptoms ongoing for the last several months. She is nontoxic-appearing on arrival, no acute distress. Due to her complaints laboratory evaluation is obtained, CT on pelvis is ordered. Chest x-ray is ordered. Patient's chest x-ray is unremarkable, laboratory evaluation does reveal a slight leukocytosis of 12.6 but is otherwise negative. Chest x-ray without focal infiltrates, CT ab pelvis without any acute process. Patient is given Toradol, oxybutynin in addition to Zofran on reevaluation she is feeling improved. No definitive cause for her symptoms. She is given referral to urology in addition advised to follow-up with her primary care doctor for further evaluation management. She started on Naprosyn, Robaxin addition to oxybutynin. . Shared decision making: [] Code status: [] Assessment/Plan Bilateral back pain (M54.9: Dorsalgia, unspecified) Dysuria (R30.0: Dysuria) Orders: ketorolac, 30 mg = 1 mL, Injection, IV Push, Once, Stop date 03/20/24 22:52:00 EDT, STAT, Start date 03/20/24 22:52:00 EDT, 03/20/24 22:52:00 EDT methocarbamol, 500 mg = 1 tab(s), Oral, TID, X 3 day(s), # 9 tab(s), Refills(s) 0, Pharmacy: [facility] #[id number], 160, cm, 03/20/24 22:16:00 EDT, Height/Length Dosing, 85.2, kg, 03/20/24 22:16:00 EDT, Weight Dosing naproxen, 500 mg = 1 tab(s), Oral, BID, PRN for pain, # 20 tab(s), Refills(s) 0, Pharmacy: [facility] #[id number], 160, cm, 03/20/24 22:16:00 EDT, Height/Length Dosing, 85.2, kg, 03/20/24 22:16:00 EDT, Weight Dosing ondansetron, 4 mg = 2 mL, Injection, IV Push, Once, Stop date 03/20/24 22:52:00 EDT, STAT, Start date 03/20/24 22:52:00 EDT, 03/20/24 22:52:00 EDT oxybutynin, 10 mg = 2 tab(s), Tab-ER, Oral, Once, Stop date 03/20/24 23:50:00 EDT, STAT, Start date 03/20/24 23:50:00 EDT, 03/20/24 23:50:00 EDT oxybutynin, 5 mg = 1 tab(s), Oral, TID, PRN for urinary discomfort, # 30 tab(s), Refills(s) 0, Pharmacy: [facility] #[id number], 160, cm, 03/20/24 22:16:00 EDT, Height/Length Dosing, 85.2, kg, 03/20/24 22:16:00 EDT, Weight Dosing Sodium Chloride 0.9% intravenous solution, 1,000 mL, Soln-IV, IV, Once, Stop date 03/20/24 22:52:00 EDT, STAT, Start date 03/20/24 22:52:00 EDT, Infuse over 61, minute(s) Basic Metabolic Panel CBC w/ Auto Diff CT Abdomen/Pelvis w/ Contrast eGFR Hepatic Function Panel Lipase Level Magnesium Level TSH With T4fr Reflex U Beta Hcg Qual UA with Cult Rflx XR Chest Single View Medications Administered Given ketorolac 30 mg/mL Inj 1 mL, 30 mg, IV Push NS 1000 ml Bolus, 1000 mL, IV ondansetron 4 mg/2 mL Inj, 4 mg, IV Push Dispo (more content not included)... Normal [facility] Comment on above: Result Comment: Elec tronically Signed By: Jesica Mccabe DO\.br\Date and Time Signed: 03/21/24 01:42 EDT ED Patient Summaryon 024 ED Patient Summary ED Patient Summary [address] [address] Patient Discharge Instructions Person Information Name: JACK REA Age: 29 Years [facility]: [id number] Arrival Date: 03/20/2024 22:05:10 Discharge Diagnosis: Bilateral back pain; Dysuria Primary Care Physician: SHAWNA DE JESUS CNP Provider Information Primary Provider: Jesica Mccabe DO Advanced Human Resources Executive:None The exam and treatment you received in the Emergency Department were for an urgent problem and are not intended as complete care. It is important that you follow up with a doctor, nurse practitioner, or physician?s procurement assistant for ongoing care. If your symptoms become worse or you do not improve as expected and you are unable to reach your usual health care provider, you should return to the Emergency Department. We are available 24 hours a day. JACK REA has been given the following list of patient education materials, prescriptions and follow-up instructions: Follow-up Instructions: With: Address: When: Princess Baker In 3 days 03/24/2024 Comments: You can take the medications as prescribed as needed for pain. Please follow-up with your primary care doctor in the next 2 to 3 days for further evaluation and management. Please return to the ED for any new or worsening symptoms. With: Address: When: SHAWNA DE JESUS [address] [place] [phone] Business (1) In 3 days In the event that this physician does not participate in your insurance network, please consult with your insurance company to find a nearby participating provider. Patient Education Materials: Pain Without a Known Cause; Nausea, Adult, Jnuy-od-Nctj; Dysuria A MESSAGE TO ALL PATIENTS REGARDING OPIOIDS PRESCRIPTION OPIOIDS: WHAT YOU NEED TO KNOW Prescription opioids can be used to help relieve golrhmrz-ae-eisyvz pain and are often prescribed following a surgery or injury, or for certain health conditions. These medications can be an important part of the treatment but also come with serious risks. It is important to work with your healthcare provider to make sure you are getting the safest, most effective care. WHAT ARE THE RISKS AND SIDE EFFECTS OF OPIOID USE? Prescription opioids carry serious risks of addiction and overdose, especially with prolonged use. An opioid overdose, often marked by slowed breathing, can cause sudden . The use of prescription opioids can have a number of side effects as well, even when taken as directed: ? Tolerance?meaning you might need to take more of the medication for the same pain relief ? Physical dependence?meaning you have symptoms of withdrawal when a medication is stopped ? Increased sensitivity to pain ? Constipation ? Nausea, vomiting, and dry mouth ? Sleepiness and dizziness ? Confusion ? Depression ? Low levels of testosterone that can result in lower sex drive, energy, and strength ? Itching and sweating RISKS ARE GREATER WITH: ? History of drug misuse, substance use disorder, or overdose ? Mental health conditions (such as depression or anxiety) ? Sleep apnea ? Older age (65 years and older) ? Avoid alcohol while taking prescription opioids. Also, unless specifically advised by your health care provider, medications to avoid include: ? Benzodiazepines (such as Xanax or Valium) ? Muscle relaxants (such as Soma or Flexeril) ? Hypnotics (such as Ambien or Lunesta) ? Other prescription opioids KNOW YOUR OPTIONS Talk to your health care provider about ways to manage your pain that don?t involve prescription opioids. Some of these options may actually work better and have fewer risks and side effects. Options may include: ? Pain relievers such as acetaminophen, ibuprofen, and naproxen ? Some medication that are also used for depression or seizures ? Physical therapy and exercise ? Cognitive behavioral therapy, a psychological, goal-directed approach, in which patients learn how to modify physical, behavioral, and emotional triggers of pain and stress. IF YOU ARE PRESCRIBED OPIOIDS FOR PAIN: ? Never take opioids in greater amounts or more often than prescribed. ? Follow up with your primary health care provider. o Work together to create a plan on how to manage your pain. o Talk about ways to help manage your pain that don?t involve prescription opioids. o Talk about any and all concerns and side effects. ? Help prevent misuse and abuse o Never sell or share prescription opioids. o Never use another person?s prescription opioids. ? Store prescription opioids in a secure place and out of reach of others (this may include visitors, children, friends, and family). ? Safely dispose of unused prescription opioids: Find your community drug take-back program or your pharmacy mail-back program, or flush them down the toilet, following guidance from (more content not included)... Normal [facility] XR Chest Single Viewon 03-21 XR Chest Single View Exam Date/Time: 03/21/2024 00:12 EDT Reason for Exam: Difficulty breathing Report IMPRESSION: NO EVIDENCE OF ACTIVE CHEST DISEASE. CLINICAL HISTORY: Difficulty breathing. COMMENT: AP portable. The heart is normal in size. The mediastinum is unremarkable. The lungs appear clear. No infiltration nor pleural effusion is evident. Ordering Provider: Jesica Mccabe FINAL REPORT Dictated: 03/21/2024 7:36 am Samuel Gar M.D. Signed (Electronic Signature): 03/21/2024 7:36 am Signed by: Samuel Gar M.D. Transcribed by: DAVID Technologist: LJ Technical Comments Radiation Dose: Ka,r in mGy = na DAP = na Normal [facility] BMPon 03-20-2024 Anion gap [Moles/Vol] 9 mmol/L Normal 6-16 [facility] Comment on above: Performed By: #### 2 [id number] #### [facility] [address] [place] [address] Calcium [Mass/Vol] 9.4 mg/dL Normal 8.9-11.1 [facility] Comment on above: Performed By: #### 2 [id number] #### [facility] [address] [place] [address] Chloride [Moles/Vol] 107 mmol/L Normal 101-111 [facility] Comment on above: Performed By: #### 2 [id number] #### [facility] [address] [place] [address] CO2 [Moles/Vol] 26 mmol/L Normal 21-31 [facility] Comment on above: Performed By: #### 2 [id number] #### [facility] [address] [place] [address] Creatinine [Mass/Vol] 0.7 mg/dL Normal 0.5-1.3 [facility] Comment on above: Performed By: #### 2 196639 #### [facility] [address] [place] [address] Glucose [Mass/Vol] 95 mg/dL Normal 55-199 [facility] Comment on above: Performed By: #### 2 [id number] #### [facility] [address] [place] [address] Potassium [Moles/Vol] 3.7 mmol/L Normal 3.5-5.3 [facility] Comment on above: Performed By: #### 2 887216 #### [facility] [address] [place] [address] Sodium [Moles/Vol] 138 mmol/L Normal 135-145 [facility] Comment on above: Performed By: #### 2 066757 #### [facility] [address] [place] [address] Urea nitrogen [Mass/Vol] 7 mg/dL Normal 5-21 [facility] Comment on above: Performed By: #### 2 [id number] #### [facility] [address] [place] [address] Urea nitrogen/Creatinine [Mass ratio] 10 No Units Normal 10-20 [facility] Comment on above: Performed By: #### 2 [id number] #### [facility] [address] [place] [address] CBC w/ Auto Diffon 4 Basophils/100 WBC (Bld) 2.1 % High 0.0-2.0 [facility] Comment on above: Performed By: #### 2 [id number] #### [facility] [address] [place] [address] Basophils/Leukocytes Auto (Bld) [Pure # fraction] 0.3 E9/L High 0.0-0.2 [facility] Comment on above: Performed By: #### 2 102238 #### [facility] [address] [place] [address] Eosinophils (Bld) [#/Vol] 0.2 E9/L Normal 0.0-0.5 [facility] Comment on above: Performed By: #### 2 [id number] #### [facility] [address] [place] [address] Eosinophils/100 WBC (Bld) 1.5 % Normal 0.0-8.0 [facility] Comment on above: Performed By: #### 2 799932 #### [facility] [address] [place] [address] Erythrocyte distribution width (RBC) [Ratio] 12.7 % Normal 10.9-14.2 [facility] Comment on above: Performed By: #### 2 512198 #### [facility] [address] [place] [address] Hematocrit (Bld) [Volume fraction] 42.1 % Normal 34.0-46.0 [facility] Comment on above: Performed By: #### 2 197518 #### [facility] [address] [place] [address] Hemoglobin (Bld) [Mass/Vol] 14.5 g/dL Normal 12.0-16.0 [facility] Comment on above: Performed By: #### 2 990745 #### [facility] [address] [place] [address] Lymphocytes (Bld) [#/Vol] 2.4 E9/L Normal 1.0-4.0 [facility] Comment on above: Performed By: #### 2 648288 #### [facility] [address] [place] [address] Lymphocytes/100 WBC (Bld) 19.1 % Normal 14.0-50.0 [facility] Comment on above: Performed By: #### 2 155034 #### [facility] [address] [place] [address] MCH (RBC) [Entitic mass] 30.4 pg Normal 27.0-34.0 [facility] Comment on above: Performed By: #### 2 315853 #### [facility] [address] [place] [address] MCHC (RBC) [Mass/Vol] 34.4 g/dL Normal 31.4-36.0 [facility] Comment on above: Performed By: #### 2 644459 #### [facility] [address] [place] [address] MCV (RBC) [Entitic vol] 88.6 fL Normal 80.0-100.0 [facility] Comment on above: Performed By: #### 2 992467 #### [facility] [address] [place] [address] Monocytes (Bld) [#/Vol] 0.9 E9/L Normal 0.2-1.0 [facility] Comment on above: Performed By: #### 2 307413 #### [facility] [address] [place] [address] Neutrophils (Bld) [#/Vol] 8.8 E9/L High 2.0-7.5 [facility] Comment on above: Performed By: #### 2 751872 #### [facility] [address] [place] [address] Neutrophils/100 WBC (Bld) 70.3 % Normal 36.0-75.0 [facility] Comment on above: Performed By: #### 2 148745 #### [facility] [address] [place] [address] Platelet mean volume (Bld) [Entitic vol] 8.7 fL Normal 6.4-10.8 [facility] Comment on above: Performed By: #### 2 241198 #### [facility] [address] [place] [address] Platelets (Bld) [#/Vol] 221.0 E9/L Normal 150.0-500.0 [facility] Comment on above: Performed By: #### 2 751813 #### [facility] [address] [place] [address] RBC (Bld) [#/Vol] 4.8 E12/L Normal 4.3-5.9 [facility] Comment on above: Performed By: #### 2 406950 #### [facility] [address] [place] [address] WBC corrected for nucl RBC Auto (Bld) [#/Vol] 12.6 E9/L High 4.0-11.0 [facility] Comment on above: Performed By: #### 2 317222 #### [facility] [address] [place] [address] Hep Func Panelon 03-20-2024 Albumin [Mass/Vol] 4.5 g/dL Normal 3.3-5.0 [facility] Comment on above: Performed By: #### 2 127652 #### [facility] [address] [place] [address] Albumin/Globulin (S) [Mass conc ratio] 2.0 Normal 1.1-2.2 [facility] Comment on above: Performed By: #### 2 386408 #### [facility] [address] [place] [address] ALP [Catalytic activity/Vol] 61 Int._Unit/L Normal 21-98 [facility] Comment on above: Performed By: #### 2 [id number] #### [facility] [address] [place] [address] ALT No additional P-5'-P [Catalytic activity/Vol] 19 Int._Unit/L Normal 6-46 [facility] Comment on above: Performed By: #### 2 626042 #### [facility] [address] [place] [address] AST [Catalytic activity/Vol] 16 Int._Unit/L Normal 5-43 [facility] Comment on above: Performed By: #### 2 143065 #### [facility] [address] [place] [address] Bilirubin [Mass/Vol] 0.3 mg/dL Normal 0.0-1.1 [facility] Comment on above: Performed By: #### 2 867679 #### [facility] [address] [place] [address] Bilirubin.direct [Mass/Vol] 0.0 mg/dL Normal 0.0-0.4 [facility] Comment on above: Performed By: #### 2 940844 #### [facility] [address] [place] [address] Bilirubin.indirect [Mass or moles/Vol] 0.3 mg/dL Normal 0.1-0.9 [facility] Comment on above: Performed By: #### 2 050504 #### [facility] [address] [place] [address] Globulin (S) [Mass/Vol] 2.2 g/dL Normal 1.4-4.0 [facility] Comment on above: Performed By: #### 2 103495 #### [facility] [address] [place] [address] Protein [Mass/Vol] 6.7 g/dL Normal 6.0-7.8 [facility] Comment on above: Performed By: #### 2 535471 #### [facility] [address] [place] [address] Lipase Levelon 03-20-2024 Lipase [Catalytic activity/Vol] 32 U/L Normal 13-58 [facility] Comment on above: Performed By: #### 2 253348 #### [facility] [address] [place] [address] Magnesiumon 03-20-2024 Magnesium [Mass/Vol] 2.1 mg/dL Normal 1.3-2.4 [facility] Comment on above: Performed By: #### 2 237547 #### [facility] [address] [place] [address] TSH With T4fr Reflexon 03-20 TSH Qn 3.72 m[IU]/L Normal 0.34-5.60 [facility] Comment on above: Performed By: #### 1 [id number] #### [facility] [address] [place] [address] U BetaHcg Qualon 03-20-2024 HCG.beta subunit (U) [Moles/Vol] Negative Normal [facility] Comment on above: Performed By: #### 2 [id number] #### [facility] [address] [place] [address] UA with Cult Rflxon 03-20-20 24 Bilirubin Ql (U) Negative Normal Negative [facility] Comment on above: Performed By: #### 4 [id number] #### [facility] [address] [place] [address] Clarity (U) Clear Normal Clear [facility] Comment on above: Performed By: #### 4 [id number] #### [facility] [address] [place] [address] Color (U) Colorless Abnormal Yellow [facility] Comment on above: Result Comment: Micr oscopic readings are only performed on those samples that meet specific criteria set forth by [facility]. Performed By: #### 4 [id number] #### [facility] [address] [place] [address] Glucose Ql (U) Negative Normal Negative [facility] Comment on above: Performed By: #### 4 [id number] #### [facility] [address] [place] [address] Hemoglobin Auto test strip (U) [Mass/Vol] Negative Normal Negative [facility] Comment on above: Performed By: #### 4 [id number] #### [facility] [address] [place] [address] Ketones Auto test strip Ql (U) Negative Normal Negative [facility] Comment on above: Performed By: #### 4 [id number] #### [facility] [address] [place] [address] Leukocyte esterase Auto test strip Ql (U) Negative Normal Negative [facility] Comment on above: Performed By: #### 4 [id number] #### [facility] [address] [place] [address] Nitrite Auto test strip Ql (U) Negative Normal Negative [facility] Comment on above: Performed By: #### 4 [id number] #### [facility] [address] [place] [address] pH (U) 7.0 [pH] Invalid Interpretation Code 5.0-9.0 [facility] Comment on above: Performed By: #### 4 [id number] #### [facility] [address] [place] [address] Protein Ql (U) Negative Normal Negative [facility] Comment on above: Performed By: #### 4 [id number] #### [facility] [address] [place] [address] Specific gravity (U) [Rel density] 1.003 Invalid Interpretation Code 1.005-1.030 [facility] Comment on above: Performed By: #### 4 [id number] #### [facility] [address] [place] [address] Urobilinogen (U) [Mass/Vol] Negative Normal Negative [facility] Comment on above: Performed By: #### 4 [id number] #### [facility] [address] [place] [address] Type of Urine collection method Clean Catch Normal [facility] Comment on above: Performed By: #### 4 [id number] #### [facility] [address] [place] [address] eGFRon 03-20-2024 eGFR 119 mL/min/1.73 m2 Normal >=59 [facility] Comment on above: Order Comment: Order added by Discern Expert. Performed By: #### 1 [id number] #### [facility] [address] [place] [address] Vit B1on 03-18-2024 Thiamine (Bld) [Moles/Vol] 108.6 nmol/L Invalid Interpretation Code 66.5-200.0 [facility] Comment on above: Result Comment: This test was developed and its performance characteristics determined by [facility]. It has not been cleared or approved by the Food and Drug Administration. Performed at: [address] [id number] MD Ubaldo Ann Performed By: #### 1 [id number] #### [facility] [address] [place] [address] C Urineon 03-16-2024 Bacteria identified Cx Nom (U) Microbiology PROCEDURE: Urine Culture [R1] SOURCE: U CleanCatch BODY SITE: COLLECTED DATE/TIME: 03/14/2024 07:41 EDT RECEIVED DATE/TIME: 03/14/2024 08:24 EDT START DATE/TIME: 03/14/2024 08:25 EDT FREE TEXT SOURCE: SHAWNA DE JESUS CNP, CNP, SHAWNA FINAL REPORTS Final Report [] Verified Date/Time: 03/16/2024 10:31 EDT 2,000 cfu/ml Mixed skin contaminants Performing Locations R1: This test was performed at: [facility], [address] [place] [address], [address] , , [facility] Comment on above: Performed By: #### 2 [id number] #### [facility] [address] [place] [address] XR Spine Lumbar Complete Inc champing Bendion 03-16-2024 XR Spine Lumbar Complete Including Bendi Exam Date/Time: 03/14/2024 08:10 EDT Reason for Exam: low back pain Report IMPRESSION: NO ACUTE OSSEOUS ABNORMALITY. EXAMINATION: XR Spine Lumbar Complete Including Bendi TECHNIQUE: AP, lateral, bilateral oblique views of the lumbar spine and AP and lateral coned down view of the lumbosacral junction . Lateral flexion/extension views HISTORY: Low back pain COMPARISONS: CT abdomen pelvis 12/28/2023 FINDINGS: Lumbar spine alignment is within normal limits. Lumbar vertebral body heights are maintained. Intervertebral disc heights are preserved. No acute fracture. No spondylolysis or spondylolisthesis. Sacroiliac joints appear within normal limits. An IUD projects over the pelvis. Ordering Provider: SHAWNA DE JESUS FINAL REPORT Dictated: 03/16/2024 1:09 pm Ananda Shine DO Signed (Electronic Signature): 03/16/2024 1:09 pm Signed by: Ananda Shine DO Transcribed by: DAVID Technologist: RADHA Technical Comments Radiation Dose: Ka,r in mGy = na DAP = na Normal [facility] PTH Intacton 03-15-2024 Parathyrin.intact [Mass/Vol] 35 pg/mL Invalid Interpretation Code 15-65 [facility] Comment on above: Result Comment: Perf ormed at: [facility] [address] [id number] PhD Fadumo Peraza Performed By: #### 1 [id number] #### [facility] [address] [place] [address] Automated basophil countOrde red By: SYSTEM SYSTEM on 03-14-2024 Basophils/100 WBC (Bld) 0.4 % 0.0-2.0 R emisol Heme Automated blood monocyte cou ntOrdered By: SYSTEM SYSTEM on 03-14-2024 Monocytes/100 WBC (Bld) 7.7 % 4.0-14.0 R emisol Heme Basophils/100 WBC Auto (Bld) on 03-14-2024 Basophils/100 WBC (Bld) 0.0 E9/L 0.0-0.2 F [facility] Blood thiamine measurement ( moles/volume)on 03-14-2024 Thiamine (Bld) [Moles/Vol] 108.6 nmol/L 66.5-200.0 [facility] CBC w/ Auto Diffon Basophils/100 WBC (Bld) 0.4 % Normal 0.0-2.0 [facility] Comment on above: Performed By: #### 2 [id number] #### [facility] [address] [place] [address] Basophils/Leukocytes Auto (Bld) [Pure # fraction] 0.0 E9/L Normal 0.0-0.2 [facility] Comment on above: Performed By: #### 2 [id number] #### [facility] [address] [place] [address] Eosinophils (Bld) [#/Vol] 0.1 E9/L Normal 0.0-0.5 [facility] Comment on above: Performed By: #### 2 008600 #### [facility] [address] [place] [address] Eosinophils/100 WBC (Bld) 1.4 % Normal 0.0-8.0 [facility] Comment on above: Performed By: #### 2 666643 #### [facility] [address] [place] [address] Erythrocyte distribution width (RBC) [Ratio] 13.0 % Normal 10.9-14.2 [facility] Comment on above: Performed By: #### 2 136812 #### [facility] [address] [place] [address] Hematocrit (Bld) [Volume fraction] 44.3 % Normal 34.0-46.0 [facility] Comment on above: Performed By: #### 2 [id number] #### [facility] [address] [place] [address] Hemoglobin (Bld) [Mass/Vol] 15.4 g/dL Normal 12.0-16.0 [facility] Comment on above: Performed By: #### 2 374068 #### [facility] [address] [place] [address] Lymphocytes (Bld) [#/Vol] 2.6 E9/L Normal 1.0-4.0 [facility] Comment on above: Performed By: #### 2 849335 #### [facility] [address] [place] [address] Lymphocytes/100 WBC (Bld) 26.0 % Normal 14.0-50.0 [facility] Comment on above: Performed By: #### 2 230101 #### [facility] [address] [place] [address] MCH (RBC) [Entitic mass] 31.0 pg Normal 27.0-34.0 [facility] Comment on above: Performed By: #### 2 939406 #### [facility] [address] [place] [address] MCHC (RBC) [Mass/Vol] 34.8 g/dL Normal 31.4-36.0 [facility] Comment on above: Performed By: #### 2 695421 #### [facility] [address] [place] [address] MCV (RBC) [Entitic vol] 89.2 fL Normal 80.0-100.0 [facility] Comment on above: Performed By: #### 2 156239 #### [facility] [address] [place] [address] Monocytes (Bld) [#/Vol] 0.8 E9/L Normal 0.2-1.0 [facility] Comment on above: Performed By: #### 2 427786 #### [facility] [address] [place] [address] Neutrophils (Bld) [#/Vol] 6.4 E9/L Normal 2.0-7.5 [facility] Comment on above: Performed By: #### 2 154075 #### [facility] [address] [place] [address] Neutrophils/100 WBC (Bld) 64.5 % Normal 36.0-75.0 [facility] Comment on above: Performed By: #### 2 972649 #### [facility] [address] [place] [address] Platelet mean volume (Bld) [Entitic vol] 8.6 fL Normal 6.4-10.8 [facility] Comment on above: Performed By: #### 2 594756 #### [facility] [address] [place] [address] Platelets (Bld) [#/Vol] 229.0 E9/L Normal 150.0-500.0 [facility] Comment on above: Performed By: #### 2 [id number] #### [facility] [address] [place] [address] RBC (Bld) [#/Vol] 5.0 E12/L Normal 4.3-5.9 [facility] Comment on above: Performed By: #### 2 326350 #### [facility] [address] [place] [address] WBC corrected for nucl RBC Auto (Bld) [#/Vol] 9.9 E9/L Normal 4.0-11.0 [facility] Comment on above: Performed By: #### 2 [id number] #### [facility] [address] [place] [address] CHEMISTRYOrdered By: SYSTEM SYSTEM on 03-14-2024 25-hydroxyvitamin D3 [Mass/Vol] 25.8 ng/mL Low 30.0 - 100.0 ng/mL Remisol Chem ALP [Catalytic activity/Vol] 66 [iU]/d Normal 21 - 98 Int._Unit/L Remisol Chem ALT No additional P-5'-P [Catalytic activity/Vol] 25 [iU]/d Normal 6 - 46 Int._Unit/L [facility] Chem AST [Catalytic activity/Vol] 21 [iU]/d Normal 5 - 43 Int._Unit/L [facility] eGFR 102 mL/min/1.73 m2 Normal >=59mL/mi n/1 .73 m2 [facility] Chem Iron [Mass/Vol] 79 ug/dL Normal 35 - 153 mcg/dL [facility] Iron binding capacity [Mass/Vol] 410 ug/dL High 250 - 400 mcg/dL [facility] Urea nitrogen/Creatinine [Mass ratio] 10 mg/mg Normal 10 - 20 [facility] CMPon 03-14-2024 Albumin [Mass/Vol] 4.5 g/dL Normal 3.3-5.0 [facility] Comment on above: Performed By: #### 2 [id number] #### [facility] [address] [place] [address] Albumin/Globulin (S) [Mass conc ratio] 1.9 Normal 1.1-2.2 [facility] Comment on above: Performed By: #### 2 [id number] #### [facility] [address] [place] [address] ALP [Catalytic activity/Vol] 66 Int._Unit/L Normal 21-98 [facility] Comment on above: Performed By: #### 2 061636 #### [facility] [address] [place] [address] ALT No additional P-5'-P [Catalytic activity/Vol] 25 Int._Unit/L Normal 6-46 [facility] Comment on above: Performed By: #### 2 [id number] #### [facility] [address] [place] [address] Anion gap [Moles/Vol] 12 mmol/L Normal 6-16 [facility] Comment on above: Performed By: #### 2 309598 #### [facility] [address] [place] [address] AST [Catalytic activity/Vol] 21 Int._Unit/L Normal 5-43 [facility] Comment on above: Performed By: #### 2 454375 #### [facility] [address] [place] [address] Bilirubin [Mass/Vol] 0.7 mg/dL Normal 0.0-1.1 [facility] Comment on above: Performed By: #### 2 676612 #### [facility] [address] [place] [address] Calcium [Mass/Vol] 9.2 mg/dL Normal 8.9-11.1 [facility] Comment on above: Performed By: #### 2 924761 #### [facility] [address] [place] [address] Chloride [Moles/Vol] 105 mmol/L Normal 101-111 [facility] Comment on above: Performed By: #### 2 898169 #### [facility] [address] [place] [address] CO2 [Moles/Vol] 25 mmol/L Normal 21-31 [facility] Comment on above: Performed By: #### 2 842801 #### [facility] [address] [place] [address] Creatinine [Mass/Vol] 0.8 mg/dL Normal 0.5-1.3 [facility] Comment on above: Performed By: #### 2 692317 #### [facility] [address] [place] [address] Globulin (S) [Mass/Vol] 2.4 g/dL Normal 1.4-4.0 [facility] Comment on above: Performed By: #### 2 335872 #### [facility] [address] [place] [address] Glucose [Mass/Vol] 97 mg/dL Normal 55-199 [facility] Comment on above: Performed By: #### 2 676902 #### [facility] [address] [place] [address] Potassium [Moles/Vol] 3.8 mmol/L Normal 3.5-5.3 [facility] Comment on above: Performed By: #### 2 512206 #### [facility] [address] [place] [address] Protein [Mass/Vol] 6.9 g/dL Normal 6.0-7.8 [facility] Comment on above: Performed By: #### 2 961278 #### [facility] [address] [place] [address] Sodium [Moles/Vol] 138 mmol/L Normal 135-145 [facility] Comment on above: Performed By: #### 2 293947 #### [facility] [address] [place] [address] Urea nitrogen [Mass/Vol] 8 mg/dL Normal 5-21 [facility] Comment on above: Performed By: #### 2 [id number] #### [facility] [address] [place] [address] Urea nitrogen/Creatinine [Mass ratio] 10 No Units Normal 10-20 [facility] Comment on above: Performed By: #### 2 360970 #### [facility] [address] [place] [address] Eosinophils/100 leukocytes i n Blood by Manual countOrdered By: SYSTEM SYSTEM on 03-14-2024 Eosinophils/100 WBC (Bld) 1.4 % 0.0-8.0 Rem[facility] Erythrocyte distribution wid th [Ratio] by Automated countOrdered By: SYSTEM SYSTEM on 03-14-2024 Erythrocyte distribution width (RBC) [Ratio] 13.0 % 10.9-14.2 [facility] Erythrocytes [#/volume] in B lood by Automated countOrdered By: SYSTEM SYSTEM on 03-14-2024 RBC (Bld) [#/Vol] 5.0 E12/L 4.3-5.9 [facility] Estimated glomerular filtrat ion rate (GFR) non- Americanon 03-14-2024 GFR/1.73 sq M.predicted among non-blacks MDRD (S/P/Bld) [Vol rate/Area] 102 mL/min/1.73 m2 >=59 [facility] HEMATOLOGYOrdered By: SYSTEM SYSTEM on 03-14-2024 Basophils/Leukocytes Auto (Bld) [Pure # fraction] 0.0 E9/L Normal 0.0 - 0.2 E9/L Rem[facility] Hem[facility] Eosinophils (Bld) [#/Vol] 0.1 E9/L Normal 0.0 - 0.5 E9/L [facility] Lymphocytes (Bld) [#/Vol] 2.6 E9/L Normal 1.0 - 4.0 E9/L [facility] Monocytes (Bld) [#/Vol] 0.8 E9/L Normal 0.2 - 1.0 E9/L [facility] Hematocrit [Volume Fraction] of Blood by Automated countOrdered By: SYSTEM SYSTEM on 03-14-2024 Hematocrit (Bld) [Volume fraction] 44.3 % 34.0-46.0 [facility] Hemoglobin [Mass/volume] in BloodOrdered By: SYSTEM SYSTEM on 03-14-2024 Hemoglobin (Bld) [Mass/Vol] 15.4 g/dL 12.0-16.0 [facility]e [id number] 03-14-2024 HbA1c (Bld) [Mass fraction] 4.8 % Normal <=5.9 [facility] Comment on above: Performed By: #### 7 [id number] #### [facility] [address] [place] [address] Ironon 03-14-2024 Iron [Mass/Vol] 79 microgram/dL Normal 35-153 [facility] Comment on above: Performed By: #### 2 [id number] #### [facility] [address] [place] [address] Iron binding capacity [Mass/ volume] in Serum or Plasmaon 03-14-2024 Iron binding capacity [Mass/Vol] 410 microgram/dL High 250-400 [facility] - Chemistry and C hemistry - challengeOrdered By: SYSTEM SYSTEM on 03-14-2024 Albumin [Mass/Vol] 4.5 g/dL 3.3-5.0 Rem[facility] l Chem Bilirubin [Mass/Vol] 0.7 mg/dL 0.0-1.1 [facility] Chem Calcium [Mass/Vol] 9.2 mg/dL 8.9-11.1 [facility] Chloride [Moles/Vol] 105 mmol/L 101-111 [facility] Chem CO2 [Moles/Vol] 25 mmol/L 21-31 [facility] C hem Cobalamin (Vitamin B12) [Mass/Vol] 345 pg/mL 50-1500 [facility] Chem Creatinine [Mass/Vol] 0.8 mg/dL 0.5-1.3 Rem isol Chem Glucose [Mass/Vol] 97 mg/dL 55-199 Remiso l Chem Potassium [Moles/Vol] 3.8 mmol/L 3.5-5.3 Rem isol Chem Protein [Mass/Vol] 6.9 g/dL 6.0-7.8 Rem[facility] l Chem Sodium [Moles/Vol] 138 mmol/L 135-145 Rem[facility] l Chem Transferrin [Mass/Vol] 293 mg/dL 200-370 Re misol Chem TSH Qn 2.09 m[IU]/L 0.34-5.60 [facility] Urea nitrogen [Mass/Vol] 8 mg/dL 5-21 [facility] Chem Bilirubin Ql (U) Negative Negative [facility] UA Auto SS Urobilinogen (U) [Mass/Vol] Negative Negative [facility] UA Auto SS Laboratory - Chemistry and C hemistry - challengeon 03-14-2024 Glucose (U) [Mass/Vol] Negative Negative [facility] Ketones Ql (U) Negative Negative [facility] pH (U) 5.5 [pH] 5.0-9.0 [facility] Specific gravity (U) [Rel density] 1.026 1.005-1.030 [facility] Laboratory - Hematology and Cell countsOrdered By: Martina Chou on 03-14-2024 HbA1c (Bld) [Mass fraction] 4.8 % <=5.9 [facility] ChemAutoSS Laboratory - Hematology and Cell countsOrdered By: SYSTEM SYSTEM on 03-14-2024 Neutrophils/100 WBC (Bld) 64.5 % 36.0-75.0 [facility] Laboratory - Specimen inform ationon 03-14-2024 Appearance (U) Turbid Abnormal Clear [facility] Color (U) Yellow Yellow [facility] Specimen type Nom (Spec) Clean Catch [facility] Laboratory - Urinalysison Leukocyte esterase Test strip Ql (U) 500 Mavis/uL CD:[id number] Abnormal Negative [facility] Mucus Ql (Urine sed) 1+ CD:[id number] Abnormal Negative [facility] Nitrite Ql (U) Negative Negative [facility] Laboratory - UrinalysisOrder ed By: SYSTEM SYSTEM on 03-14-2024 Protein Ql (U) Trace mg/dL Abnormal Negative [facility] UA A uto SS Leukocytes [#/volume] correc gemini for nucleated erythrocytes in Blood by Automated counOrdered By: SYSTEM SYSTEM on 03-14-2024 WBC corrected for nucl RBC Auto (Bld) [#/Vol] 9.9 E9/L 4.0-11.0 [facility] sanaz Lymphocytes [#/volume] in Bl ood by Automated countOrdered By: SYSTEM SYSTEM on 03-14-2024 Lymphocytes/100 WBC (Bld) 26.0 % 14.0-50.0 [facility] MCH [Entitic mass] by Automa gemini countOrdered By: SYSTEM SYSTEM on 03-14-2024 MCH (RBC) [Entitic mass] 31.0 pg 27.0-34.0 [facility] MCHC [Mass/volume] by Automa gemini countOrdered By: SYSTEM SYSTEM on 03-14-2024 MCHC (RBC) [Mass/Vol] 34.8 g/dL 31.4-36.0 Rem isol Heme MCV [Entitic volume] by Auto mated countOrdered By: SYSTEM SYSTEM on 03-14-2024 MCV (RBC) [Entitic vol] 89.2 fL 80.0-100.0 R emisol Heme Neutrophils [#/volume] in Bl ood by Automated countOrdered By: SYSTEM SYSTEM on 03-14-2024 Neutrophils (Bld) [#/Vol] 6.4 E9/L 2.0-7.5 [facility] No Panel Informationon 03-14 25-Hydroxy Vitamin D Total 25.8 ng/mL Low 30.0-100.0 [facility] Alanine Aminotransferase (ALT/SGPT) 25 Int._Unit/L 6-46 [facility] Alkaline Phosphatase 66 Int._Unit/L 21-98 [facility] Aspartate Amino Transf (AST/SGOT) 21 Int._Unit/L 5-43 [facility] BUN/Creatinine Ratio 10 No Units 10-20 [facility] Eosinophils # (Auto) 0.1 E9/L 0.0-0.5 [facility] Iron Level 79 microgram/dL 35-153 [facility] Lymphocytes # (Manual) 2.6 E9/L 1.0-4.0 [facility] Parathyroid Hormone (Intact) 35 pg/mL 15-65 [facility] Urine Bacteria Trace [HPF] Trace [facility] Urine Occult Blood Trace mg/dL Abnormal Negative [facility] Urine RBC 4-20 CD:[id number] Abnormal 0-3 [facility] Urine Squamous Epithelial Cells 9-10 CD:[id number] [facility] Urine WBC 26-30 CD:[id number] Abnormal 0-5 [facility] No Panel InformationOrdered By: Shawna De Jesus on 03-14-2024 C Urine [facility] Platelet mean volume [Entiti c volume] in Blood by Automated countOrdered By: SYSTEM SYSTEM on 03-14-2024 Platelet mean volume (Bld) [Entitic vol] 8.6 fL 6.4-10.8 [facility] Platelets [#/volume] in Bloo d by Automated countOrdered By: SYSTEM SYSTEM on 03-14-2024 Platelets (Bld) [#/Vol] 229.0 E9/L 150.0-500.0 [facility] Serum globulin measurement b y calculation (mass/volume)Ordered By: SYSTEM SYSTEM on 03-14-2024 Globulin (S) [Mass/Vol] 2.4 g/dL 1.4-4.0 R emisol Chem Serum or plasma albumin/glob ulin mass ratioOrdered By: SYSTEM SYSTEM on 03-14-2024 Albumin/Globulin [Mass ratio] 1.9 {ratio} 1.1-2.2 [facility] Serum or plasma anion gap de terminationOrdered By: SYSTEM SYSTEM on 03-14-2024 Anion gap [Moles/Vol] 12 mmol/L 6-16 Rem isol Chem TIBC Calculatedon 03-14-2024 Iron binding capacity [Mass/Vol] 410 microgram/dL High 250-400 [facility] Comment on above: Performed By: #### 1 [id number] #### [facility] [address] [place] [address] Transferrin [Mass/Vol] 293 mg/dL Normal 200-370 [facility] Comment on above: Performed By: #### 1 [id number] #### [facility] [address] [place] [address] TSH With T4fr Reflexon 03-14 TSH Qn 2.09 m[IU]/L Normal 0.34-5.60 [facility] Comment on above: Performed By: #### 1 [id number] #### [facility] [address] [place] [address] URINALYSISOrdered By: SYSTEM SYSTEM on 03-14-2024 Bacteria Auto Ql (U) Trace /HPF Normal Trace/HPF [facility] UA Auto SS Clarity (U) Turbid *ABN* (03/14/24 7:41 AM) Invalid Interpretation Code Clear [facility] UA Auto SS Color (U) Yellow 1 (03/14/24 7:41 AM) Normal Yellow [facility] UA Auto SS Comment on above: Interpretive Data: M icroscopic readings are only performed on those samples that meet specific criteria set forth by [facility]. Epithelial cells.squamous Auto (Urine sed) [#/Area] 9-10 graded/HPF Invalid Interpretation Code [facility] UA Auto SS Glucose Ql (U) Negative Normal Negativemg/d L [facility] UA Auto SS Hemoglobin Auto test strip (U) [Mass/Vol] Trace mg/dL Invalid Interpretation Code Negativemg/d L [facility] UA Auto SS Ketones Auto test strip Ql (U) Negative Normal Negativemg/d L [facility] UA Auto SS Leukocyte esterase Auto test strip Ql (U) 500 Mavis/uL Mavis/uL Invalid Interpretation Code NegativeLeu/ uL [facility] UA Auto SS Mucus Auto Ql (U) 1+ graded/LPF Invalid Interpretation Code Negativegrad ed/LPF [facility] UA Auto SS Nitrite Auto test strip Ql (U) Negative Normal Negativemg/d L [facility] UA Auto SS pH (U) 5.5 *NA* (03/14/24 7:41 AM) Invalid Interpretation Code 5.0 - 9.0 [facility] UA Auto SS RBC Ql (U) 4-20 graded/HPF Invalid Interpretation Code 0-3graded/HP F [facility] UA Auto SS Specific gravity (U) [Rel density] 1.026 *NA* (03/14/24 7:41 AM) Invalid Interpretation Code 1.005 - 1.030 [facility] UA Auto SS WBC Auto (Urine sed) [#/Area] 26-30 graded/HPF Invalid Interpretation Code 0-5graded/HP F [facility] UA Auto SS URINALYSISOrdered By: Morena Bloom on 03-14-2024 UA Spec Desc Clean Catch (03/14/24 7:41 AM) Normal [facility] UA Auto SS Urinalysis with Microon 03-04 Bacteria Auto Ql (U) Trace Normal Trace [facility] Comment on above: Performed By: #### 4 [id number] #### [facility] [address] [place] [address] Bilirubin Ql (U) Negative Normal Negative [facility] Comment on above: Performed By: #### 4 [id number] #### [facility] [address] [place] [address] Clarity (U) Turbid Abnormal Clear [facility] Comment on above: Performed By: #### 4 [id number] #### [facility] [address] [place] [address] Color (U) Yellow Normal Yellow [facility] Comment on above: Result Comment: Micr oscopic readings are only performed on those samples that meet specific criteria set forth by [facility]. Performed By: #### 4 [id number] #### [facility] [address] [place] [address] Epithelial cells.squamous Auto (Urine sed) [#/Area] 9-10 Invalid Interpretation Code [facility] Comment on above: Performed By: #### 4 [id number] #### [facility] [address] [place] [address] Glucose Ql (U) Negative Normal Negative [facility] Comment on above: Performed By: #### 4 [id number] #### [facility] [address] [place] [address] Hemoglobin Auto test strip (U) [Mass/Vol] Trace Abnormal Negative [facility] Comment on above: Performed By: #### 4 [id number] #### [facility] [address] [place] [address] Ketones Auto test strip Ql (U) Negative Normal Negative [facility] Comment on above: Performed By: #### 4 [id number] #### [facility] [address] [place] [address] Leukocyte esterase Auto test strip Ql (U) 500 Mavis/uL Abnormal Negative [facility] Comment on above: Performed By: #### 4 [id number] #### [facility] [address] [place] [address] Mucus Auto Ql (U) 1+ CD:[id number] Abnormal Negative [facility] Comment on above: Performed By: #### 4 [id number] #### [facility] [address] [place] [address] Nitrite Auto test strip Ql (U) Negative Normal Negative [facility] Comment on above: Performed By: #### 4 [id number] #### [facility] [address] [place] [address] pH (U) 5.5 [pH] Invalid Interpretation Code 5.0-9.0 [facility] Comment on above: Performed By: #### 4 [id number] #### [facility] [address] [place] [address] Protein Ql (U) Trace Abnormal Negative [facility] Comment on above: Performed By: #### 4 [id number] #### [facility] [address] [place] [address] RBC Ql (U) 4-20 Abnormal 0-3 [facility] Comment on above: Performed By: #### 4 [id number] #### [facility] [address] [place] [address] Specific gravity (U) [Rel density] 1.026 Invalid Interpretation Code 1.005-1.030 [facility] Comment on above: Performed By: #### 4 [id number] #### [facility] [address] [place] [id number] Urobilinogen (U) [Mass/Vol] Negative Normal Negative [facility] Comment on above: Performed By: #### 4 [id number] #### [facility] [address] [place] [address] WBC Auto (Urine sed) [#/Area] 26-30 Abnormal 0-5 [facility] Comment on above: Performed By: #### 4 [id number] #### [facility] [address] [place] [address] Type of Urine collection method Clean Catch Normal [facility] Comment on above: Performed By: #### 4 [id number] #### [facility] [address] [place] [address] Vit B12on 03-14-2024 Cobalamin (Vitamin B12) [Mass/Vol] 345 pg/mL Normal 50-1500 [facility] Comment on above: Performed By: #### 2 [id number] #### [facility] [address] [place] [address] Vitamin D 25 Hydroxyon 03-14 25-hydroxyvitamin D3 [Mass/Vol] 25.8 ng/mL Low 30.0-100.0 [facility] Comment on above: Performed By: #### 5 [id number] #### [facility] [address] [place] [address] eGFRon 03-14-2024 eGFR 102 mL/min/1.73 m2 Normal >=59 [facility] Comment on above: Order Comment: Order added by Discern Expert. Performed By: #### 1 [id number] #### [facility] [address] [place] [address] Ambulatory Visit Summaryon 0 01-10-2024 Ambulatory Visit Summary Ambulatory Visi t Summary JACK REA :1995 Visit Date:01/10/2024 Ambulatory Visit Instructions Your Diagnosis Right flank pain Nausea and vomiting Irritable bowel syndrome with constipation Generalized abdominal pain Bloating Your Care Team Attending Physician - Oralia BURKS, Juliana Pruett Primary Care Physician - SHAWNA DE JESUS CNP This Is Your Medications List linaclotide (Linzess 145 mcg oral capsule) Contact prescribing physician if questions or concerns dicyclomine (dicyclomine 10 mg Cap) naproxen (naproxen 500 mg Tab) ondansetron (Zofran ODT 4 mg Tab-Dis) ondansetron (Zofran ODT 4 mg Tab-Dis) pantoprazole (Protonix 40 mg Tab-DR) sucralfate (sucralfate 1 g Tab) Procedures Performed Ts and As - Tonsillectomy and adenoidectomy (1998). Discharge Vitals Heart Rate (Peripheral) 78 Respiratory Rate 18 Blood Pressure 124/80 Height 160 cm Height 63 in Weight 85 kg Weight 187 lb BMI 33.2 What to do next Scheduled Follow-Up Appointments 2023 8:45 AM EDT With: Juliana Barton MD Where: [facility] Normal [facility] Gastroenterology Office/Clin ic Noteon 01-10-2024 Gastroenterology Office/Clinic Note Gastroenterology Office/Clinic Note Chief Complaint f/u ER - right flank pain, n/v HPI Staff Patient is a 28 year old female who presents today for a f/u from [facility] ER 12/28/23 for right flank pain, nausea and vomiting. Was seen 02/2023 in ER for right flank pain - CT then showed renal calculi. Advised to f/u with urology - did not. Denies previous EGD/Colonoscopy. Denies Fhx colon cancer. Denies blood thinners/diabetic injectables. ED note: Treatment and Disposition ED Course: A 28-year-old female reports to the emergency department chief complaint of nausea, diarrhea, abdominal pain. States that these have been going on for about 5 to 6 days now this. Reports darker colored stools. She states that otherwise is healthy. Denies any surgeries on her abdomen 4. Due to concerns we did do lab work. Examined patient rather benign except some periumbilical pain. No signs of peritonitis. Lab work reviewed noted. No acute changes seen. We did do a CT of the abdomen that showed no acute process. Due to her symptoms, she did feel improved. Was able to pass p.o. challenge. Will discharge home. CT 12/27: IMPRESSION: No acute process in the abdomen/pelvis. Laboratory Results CBC CMP Basophil Absolute: 0 E9/L (12/28/23) A/G Ratio: 2.1 (12/28/23) Basophil Auto: 0.4 % (12/28/23) AGAP: 13 mEq/L (12/28/23) Eos Absolute: 0.2 E9/L (12/28/23) Albumin Lvl: 4.4 gm/dL (12/28/23) Eos Auto: 1.8 % (12/28/23) Alk Phos: 80 Int._Unit/L (12/28/23) Hct: 44.4 % (12/28/23) ALT: 20 Int._Unit/L (12/28/23) HGB: 15.2 gm/dL (12/28/23) AST: 20 Int._Unit/L (12/28/23) Lymph Absolute: 2 E9/L (12/28/23) Bili Total: 0.7 mg/dL (12/28/23) Lymph Auto: 20.4 % (12/28/23) BUN: 6 mg/dL (12/28/23) MCH: 30.4 pg (12/28/23) BUN/Creat Ratio: 9 Low (12/28/23) MCHC: 34.2 gm/dL (12/28/23) Calcium Lvl: 9.3 mg/dL (12/28/23) MCV: 88.8 fL (12/28/23) Chloride: 107 mmol/L (12/28/23) [place] Absolute: 0.5 E9/L (12/28/23) CO2: 24 mmol/L (12/28/23) [place] Auto: 5.4 % (12/28/23) Creatinine: 0.7 mg/dL (12/28/23) MPV: 8.1 fL (12/28/23) Globulin: 2.1 gm/dL (12/28/23) Neutro Absolute: 7 E9/L (12/28/23) Glucose Lvl: 103 mg/dL (12/28/23) Neutro Auto: 72 % (12/28/23) Potassium Lvl: 3.9 mmol/L (12/28/23) Platelet: 202 E9/L (12/28/23) Sodium Lvl: 140 mmol/L (12/28/23) RBC: 5 E12/L (12/28/23) Total Protein: 6.5 gm/dL (12/28/23) RDW: 13.2 % (12/28/23) WBC: 9.8 E9/L (12/28/23) History of Present Illness I have reviewed HPI staff note, most recent labs and imaging, more than 30 minutes spent reviewing the chart, during encounter, placing orders and counseling the patient. PT with recurrent flares of abd pain every other day stomach is hard and full more constipated pt moves her bowels once a day but not good BMs some straining and some incomplete evacuation had diarrhea once which is not normal for her pt has been dealing with this for years normal stress 2 vaginal deliveries no hx of abuse pt feels gassy and bloated pt tried some OTC laxatives- miralax and duculoax on Levsin Review of Systems PHQ Score Initial Depression Screen Score: 0 SCORE All systems reviewed, negative except as mentioned above Physical Exam Vitals & Measurements HR: 78(Peripheral) RR: 18 BP: 124/80 HT: 63 in HT: 160 cm WT: 85 kg WT: 187 lb BMI: 33.2 General: alert, no acute distress HEENT: atraumatic normocephalic Cardiovascular: regular rate and rhythm, normal peripheral perfusion Respiratory: Lungs CTA, respirations non labored Extremities: no deformity, no trauma Abdomen: Benign, soft, tender nondistended Assessment/Plan 1. Right flank pain (R10.9: Unspecified abdominal pain) Ordered: linaclotide, 145 mcg = 1 cap(s), Oral, Daily, # 30 cap(s), Refills(s) 5, Pharmacy: [facility] #[id number], 160, cm, 01/10/24 13:34:00 EDT, Height/Length Dosing, 85, kg, 01/10/24 13:34:00 EDT, Weight Dosing 2. Nausea and vomiting (R11.2: Nausea with vomiting, unspecified) Ordered: linaclotide, 145 mcg = 1 cap(s), Oral, Daily, # 30 cap(s), Refills(s) 5, Pharmacy: [facility] #[id number], 160, cm, 01/10/24 13:34:00 EDT, Height/Length Dosing, 85, kg, 01/10/24 13:34:00 EDT, Weight Dosing 3. Irritable bowel syndrome with constipation (K58.1: Irritable bowel syndrome with constipation) 4. Generalized abdominal pain (R10.84: Generalized abdominal pain) 5. Bloating (R14.0: Abdominal distension (gaseous)) Start Linzess 145 mcg daily and titrate if needed Advised to continue to use MiraLAX/senna and titrate to have 1-2 bowel moods every day Advised to use squatty potty and massage the colon Continue Levsin, PPI, and Carafate Patient will benefit from eating prunes and kiwi fruit Might benefit from neuromodulator in the future Might benefit from other agents for constipation in the future Follow-up No qualifying data available Problem List/Past Medical History Ongoing Bloating Denies Generalized abdominal pain Irritable bowel syndrome w (more content not included)... Normal [facility] Comment on above: Result Comment: Elec tronically Signed By: Oralia BURKS, Juliana Pruett\.br\Date and Time Signed: 01/10/24 14:04 EDT BMPon 12-28-2023 Creatinine [Mass/Vol] 0.7 mg/dL Normal 0.5-1.3 [facility] Comment on above: Performed By: #### 2 [id number] #### [facility] [address] [place] [address] Urea nitrogen/Creatinine [Mass ratio] 9 No Units Low 10-20 [facility] Comment on above: Performed By: #### 2 [id number] #### [facility] [address] [place] [address] Anion gap [Moles/Vol] 13 mmol/L Normal 6-16 [facility] Comment on above: Performed By: #### 2 [id number] #### [facility] [address] [place] [address] Calcium [Mass/Vol] 9.3 mg/dL Normal 8.9-11.1 [facility] Comment on above: Performed By: #### 2 [id number] #### [facility] [address] [place] [address] Chloride [Moles/Vol] 107 mmol/L Normal 101-111 [facility] Comment on above: Performed By: #### 2 [id number] #### [facility] [address] [place] [address] CO2 [Moles/Vol] 24 mmol/L Normal 21-31 [facility] Comment on above: Performed By: #### 2 [id number] #### [facility] [address] [place] [address] Glucose [Mass/Vol] 103 mg/dL Normal 55-199 [facility] Comment on above: Performed By: #### 2 [id number] #### [facility] [address] [place] [address] Potassium [Moles/Vol] 3.9 mmol/L Normal 3.5-5.3 [facility] Comment on above: Performed By: #### 2 [id number] #### [facility] [address] [place] [address] Sodium [Moles/Vol] 140 mmol/L Normal 135-145 [facility] Comment on above: Performed By: #### 2 [id number] #### [facility] [address] [place] [address] Urea nitrogen [Mass/Vol] 6 mg/dL Normal 5-21 [facility] Comment on above: Performed By: #### 2 [id number] #### [facility] [address] [place] [address] CBC w/ Auto Diffon 4 Basophils/100 WBC (Bld) 0.4 % Normal 0.0-2.0 [facility] Comment on above: Performed By: #### 2 [id number] #### [facility] [address] [place] [address] Basophils/Leukocytes Auto (Bld) [Pure # fraction] 0.0 E9/L Normal 0.0-0.2 [facility] Comment on above: Performed By: #### 2 [id number] #### [facility] [address] [place] [address] Eosinophils (Bld) [#/Vol] 0.2 E9/L Normal 0.0-0.5 [facility] Comment on above: Performed By: #### 2 [id number] #### [facility] [address] [place] [address] Eosinophils/100 WBC (Bld) 1.8 % Normal 0.0-8.0 [facility] Comment on above: Performed By: #### 2 [id number] #### [facility] [address] [place] [address] Erythrocyte distribution width (RBC) [Ratio] 13.2 % Normal 10.9-14.2 [facility] Comment on above: Performed By: #### 2 [id number] #### [facility] [address] [place] [address] Hematocrit (Bld) [Volume fraction] 44.4 % Normal 34.0-46.0 [facility] Comment on above: Performed By: #### 2 [id number] #### [facility] [address] [place] [address] Hemoglobin (Bld) [Mass/Vol] 15.2 g/dL Normal 12.0-16.0 [facility] Comment on above: Performed By: #### 2 [id number] #### [facility] [address] [place] [address] Lymphocytes (Bld) [#/Vol] 2.0 E9/L Normal 1.0-4.0 [facility] Comment on above: Performed By: #### 2 [id number] #### [facility] [address] [place] [address] Lymphocytes/100 WBC (Bld) 20.4 % Normal 14.0-50.0 [facility] Comment on above: Performed By: #### 2 [id number] #### [facility] [address] [place] [address] MCH (RBC) [Entitic mass] 30.4 pg Normal 27.0-34.0 [facility] Comment on above: Performed By: #### 2 [id number] #### [facility] [address] [place] [address] MCHC (RBC) [Mass/Vol] 34.2 g/dL Normal 31.4-36.0 [facility] Comment on above: Performed By: #### 2 [id number] #### [facility] [address] [place] [address] MCV (RBC) [Entitic vol] 88.8 fL Normal 80.0-100.0 [facility] Comment on above: Performed By: #### 2 [id number] #### [facility] [address] [place] [address] Monocytes (Bld) [#/Vol] 0.5 E9/L Normal 0.2-1.0 [facility] Comment on above: Performed By: #### 2 [id number] #### [facility] [address] [place] [address] Neutrophils (Bld) [#/Vol] 7.0 E9/L Normal 2.0-7.5 [facility] Comment on above: Performed By: #### 2 [id number] #### [facility] [address] [place] [address] Neutrophils/100 WBC (Bld) 72.0 % Normal 36.0-75.0 [facility] Comment on above: Performed By: #### 2 [id number] #### [facility] [address] [place] [address] Platelet mean volume (Bld) [Entitic vol] 8.1 fL Normal 6.4-10.8 [facility] Comment on above: Performed By: #### 2 [id number] #### [facility] [address] [place] [address] Platelets (Bld) [#/Vol] 202.0 E9/L Normal 150.0-500.0 [facility] Comment on above: Performed By: #### 2 [id number] #### [facility] [address] [place] [address] RBC (Bld) [#/Vol] 5.0 E12/L Normal 4.3-5.9 [facility] Comment on above: Performed By: #### 2 [id number] #### [facility] [address] [place] [address] WBC corrected for nucl RBC Auto (Bld) [#/Vol] 9.8 E9/L Normal 4.0-11.0 [facility] Comment on above: Performed By: #### 2 [id number] #### [facility] [address] [place] [address] CHEMISTRYOrdered By: SYSTEM SYSTEM on 12-28-2023 Albumin [Mass/Vol] 4.4 g/dL Normal 3.3 - 5.0 gm/dL Remisol Chem Albumin/Globulin [Mass ratio] 2.1 {ratio} Normal 1.1 - 2.2 Remisol Chem ALP [Catalytic activity/Vol] 80 [iU]/d Normal 21 - 98 Int._Unit/L Remisol Chem ALT No additional P-5'-P [Catalytic activity/Vol] 20 [iU]/d Normal 6 - 46 Int._Unit/L Rem[facility] Chem Anion gap [Moles/Vol] 13 mmol/L Normal 6 - 16 mEq/L R emisol Chem AST [Catalytic activity/Vol] 20 [iU]/d Normal 5 - 43 Int._Unit/L [facility] Chem Bilirubin [Mass/Vol] 0.7 mg/dL Normal 0.0 - 1 .1 mg/dL [facility] Chem Bilirubin.direct [Mass/Vol] 0.1 mg/dL Normal 0.0 - 0.4 mg/dL [facility] Chem Bilirubin.indirect [Mass or moles/Vol] 0.6 mg/dL Normal 0.1 - 0.9 mg/dL [facility] Chem Calcium [Mass/Vol] 9.3 mg/dL Normal 8.9 - 11. 1 mg/dL [facility] Chloride [Moles/Vol] 107 mmol/L Normal 101 - 1 11 mmol/L [facility] CO2 [Moles/Vol] 24 mmol/L Normal 21 - 31 mmol/L [facility] Creatinine [Mass/Vol] 0.7 mg/dL Normal 0.5 - 1.3 mg/dL [facility] Chem eGFR 119 mL/min/1.73 m2 Normal >=59mL/mi n/1 .73 m2 [facility] Chem Globulin (S) [Mass/Vol] 2.1 g/dL Normal 1.4 - 4.0 gm/dL [facility] Chem Glucose [Mass/Vol] 103 mg/dL Normal 55 - 199 mg/dL [facility] Chem Lipase [Catalytic activity/Vol] 31 U/L Normal 13 - 58 unit/L [facility] Chem Potassium [Moles/Vol] 3.9 mmol/L Normal 3.5 - 5.3 mmol/L [facility] Chem Protein [Mass/Vol] 6.5 g/dL Normal 6.0 - 7.8 gm/dL [facility] Chem Sodium [Moles/Vol] 140 mmol/L Normal 135 - 145 mmol/L [facility] Chem Urea nitrogen [Mass/Vol] 6 mg/dL Normal 5 - 21 mg/d L [facility] Chem Urea nitrogen/Creatinine [Mass ratio] 9 mg/mg Low 10 - [address] Abdomen/Pelvis w/ Contras ton 12-28-2023 CT Abdomen/Pelvis w/ Contrast Exam Date/Time: 12/28/2023 14:16 EDT Reason for Exam: ABDOMINAL PAIN, ACUTE, NONLOCALIZED;Other (please specify) Report IMPRESSION: No acute process in the abdomen/pelvis. EXAMINATION: CT Abdomen/Pelvis w/ Contrast HISTORY: ABDOMINAL PAIN, ACUTE, NONLOCALIZED. Generalized abdominal pain for 5 days. TECHNIQUE: CT of the abdomen and pelvis was performed using standard technique with intravenous contrast, scanning from just above the dome of the diaphragm to the symphysis pubis. Including delayed images through the kidneys. Including sagittal and coronal reconstructions on both phases. Unless otherwise stated, incidental findings identified in this report do not require routine follow-up imaging. All CT scans at this facility use dose modulation, iterative reconstruction, and/or weight based dosing when appropriate to reduce radiation dose to as low as reasonably achievable. COMPARISON: 02/10/2023. RESULT: Liver: No mass or lesion. Biliary: Gallbladder unremarkable. No biliary ductal dilation. Pancreas: No mass or duct dilation. Spleen: No mass or splenomegaly. Adrenals: No mass. Kidneys: No calculus or hydronephrosis. No suspicious renal lesions. Delayed phase images unremarkable. GI tract: No dilation or wall thickening. Normal appendix. No evidence for diverticulitis. Lymph nodes: No abdominal or pelvic lymphadenopathy. Mesentery/Peritoneu m/Retroperitoneum: No ascites or mass. Report Vasculature: The celiac axis and SMA are patent. The portal vein and branches, splenic vein, SMV, and hepatic veins are patent. No abdominal aortic or iliac artery aneurysm. Pelvis: No significant free fluid. IUD within the uterus, uterus otherwise grossly unremarkable. Adnexal regions unremarkable. Bladder unremarkable. Bones: No acute osseous findings. Soft tissues: Unremarkable. Lower thorax: Unremarkable. Ordering Provider: Jose Rai FINAL REPORT Dictated: 12/28/2023 2:34 pm Humberto Horne MD Signed (Electronic Signature): 12/28/2023 2:34 pm Signed by: Humberto Horne MD Transcribed by: DAVID Technologist: NISHANT Technical Comments GFR (mL/min/1/73m2) >60 Contrast: Isovue 300 Contrast amount in ml's: 100 Normal [facility] Consent for Treatmenton 12-03 Consent for Treatment [id number] C7#1.00TIFF Normal [facility] Discharge Instructionson Discharge Instructions [id number] 06 [id number] 6#1.00TIFF Normal [facility] ED Clinical Summaryon 2023 ED Clinical Summary [address] [address] ED Clinical Summary Person Information Name: JACK REA [place] Age: 28 Years : 1995 Sex: Female Language: Chadian PCP: SHAWNA DE JESUS CNP Marital Status: Phone: [phone] Visit Id: Visit Reason: Nausea; Abdominal pain; ABD PAIN, DARK STOOL, DIZZY, CHEST PAIN Speciality: Acuity: 3 Enc Type: Emergency Med Service: Emergency Arrival: 12/28/2023 10:34:35 Discharge: 12/28/2023 15:05:58 LOS: 000 04:31 Checkin: 12/28/2023 10:34:35 Checkout: 12/28/2023 15:05:58 Dispo Type: Home (Routine DC) EVENTS: Event Name Event Status Request Date/Time Start Date/Time Complete Date/Time Arrive Complete 12/28/2023 10:34:35 12/28/2023 10:34:35 12/28/2023 10:34:35 Document Home Meds Request 12/28/2023 10:34:35 Triage Complete 12/28/2023 10:34:35 12/28/2023 10:54:39 12/28/2023 10:54:39 Registration Complete 12/28/2023 10:38:50 12/28/2023 10:38:50 12/28/2023 10:38:50 Reg Complete Request 12/28/2023 10:38:50 Reg Bed Request Complete 12/28/2023 10:38:50 12/28/2023 10:38:50 12/28/2023 10:38:50 Pending Labs Complete 12/28/2023 10:55:24 12/28/2023 12:11:51 Lab Complete 12/28/2023 10:55:24 12/28/2023 12:11:51 Urine Collect Complete 12/28/2023 10:55:24 12/28/2023 11:09:26 Pending Labs Complete 12/28/2023 10:55:39 12/28/2023 11:09:05 Pending Labs Complete 12/28/2023 11:08:48 12/28/2023 11:08:48 12/28/2023 12:11:51 Lab Complete 12/28/2023 11:08:48 12/28/2023 11:08:48 12/28/2023 12:11:51 Pending Labs Complete 12/28/2023 11:09:25 12/28/2023 11:09:25 12/28/2023 11:09:26 Bed Assign Complete 12/28/2023 12:38:35 12/28/2023 12:38:35 12/28/2023 12:38:35 Dr Exam Complete 12/28/2023 12:38:35 12/28/2023 12:40:50 12/28/2023 12:40:50 RN Exam Complete 12/28/2023 12:38:35 12/28/2023 13:33:31 12/28/2023 13:33:31 Registration Request 12/28/2023 12:40:50 Dr Exam Complete 12/28/2023 12:44:33 12/28/2023 12:44:33 12/28/2023 12:44:33 CT Complete 12/28/2023 12:53:46 12/28/2023 13:46:57 12/28/2023 14:16:29 Meds Admin Complete 12/28/2023 12:53:46 12/28/2023 13:07:15 Discharge Complete 12/28/2023 14:48:22 12/28/2023 15:06:07 12/28/2023 15:06:07 Transfer Complete 12/28/2023 15:06:07 12/28/2023 15:06:07 12/28/2023 15:06:07 ADDRESS: [place] [id number] PHYS DOC NOTES: MEDICAL INFORMATION: Prescriptions Given: New Medications [facility] #[id number], [address] [place], [place] [id number], [phone] dicyclomine (Bentyl 10 mg Cap) 1 Capsules By Mouth 4 times a day for 7 Days. Refills: 0. pantoprazole (Protonix 40 mg Tab-DR) 1 Tablets By Mouth every day. Refills: 0. sucralfate (Carafate 1 gram Tab) 1 Tablets By Mouth 4 times a day for 7 Days. Refills: 0. Medications to Continue Taking That Have Changed [facility] #[id number], [address] [place], [place] [id number], [phone] START: ondansetron (Zofran ODT 4 mg Tab-Dis) 1 Tablets By Mouth every 8 hours as needed Nausea/Vomiting. Refills: 0. Other Medications START: ondansetron (Zofran ODT 4 mg Tab-Dis) 1 Tablets By Mouth every 8 hours as needed Nausea/Vomiting. Refills: 0. Medications to Continue with No Changes Other Medications naproxen (naproxen 500 mg Tab) 1 Tablets By Mouth 2 times a day as needed for pain. Refills: 0. oxycodone (oxyCODONE 5 mg Cap) 1 Capsules By Mouth every 6 hours as needed Pain 8-10. Refills: 0. promethazine (Phenergan 25 mg Tab) 1 Tablets By Mouth every 6 hours. Take one by mouth every six hours for nausea and vomiting. Refills: 0. PATIENT EDUCATION INFORMATION: Instructions: Nausea, Adult, Cruf-yc-Onjy; Abdominal Pain, Adult Follow up: With: Address: When: Juliana Barton [address], [address] [place] [phone] [facility] (1) In 3 days 12/31/2023 Comments: Call Dr for diagnosis based follow up With: Address: When: SHAWNA DE JESUS [address] [place] [address] [phone] [facility] (1) In 3 days 12/31/2023 Comments: Call Dr for diagnosis based follow up DIAGNOSIS: Diarrhea; Nausea; Pain in the abdomen Normal [facility] ED Note-Physicianon 12-28-19 ED Note-Physician Basic Information Time Seen: Fredi WEBB, Jose Corrales 12/28/2023 12:40 Chief Complaint generalized abd. pain x 5 days with black stools. denies fevers, c/o chills with dry mouth and nausea. denies vomiting. c/o light headedness. History of Present Illness A 28-year-old female reports emergency department with chief complaint of abdominal pain has been on for 5 days. Reports darker colored stools. Reports diarrhea with this. denies any fevers or chills. Reports that he does get lightheaded at times. States that she does have some mild chills, and has had some nausea. Denies any episodes of vomiting. States that her abdomen hurts, in the upper part of her abdomen. Denies any fevers or chills otherwise. Reports no surgeries on her abdomen before. Denies any chest pain or shortness of breath. Review of Systems No other aggravating or relieving factors no other associated symptoms no other prior treatments or complaints. Family: Reviewed and noncontributory Social: lives at home Review of systems negative unless otherwise specified in the HPI. Physical Exam Vitals & Measurements T: 36.9 ?C(Oral) HR: 68(Monitored) RR: 18 BP: 125/72 SpO2: 97% HT: 160 cm WT: 81.7 kg BMI: 31.91 General: The patient appears well and in no apparent distress. Patient is resting comfortably on bed. Afebrile Skin: Warm, dry, no pallor noted. Head: Normocephalic, atraumatic Neck: No JVD Eye: PERRLA, EOMI ENT: Moist mucus membranes Cardiovascular: Regular rate normal peripheral perfusion Respiratory: No respiratory distress no accessory muscle use no obvious audible wheezing Chest Wall: no deformity Musculoskeletal: normal ROM, no deformity, no swelling GI: No obvious distention soft, with generalized tenderness around the periumbilical region. No tenderness or guarding noted. Neurological: A&O moves all extremities equal strength and symmetry Psychiatric: Cooperative and appropriate Medical Decision Making MEDICAL DECISION MAKING Number and Complexity of Problems Differential Diagnosis: [] [facility] Data External documents reviewed: [] My EKG interpretation: [] My CT interpretation: Reviewed My X-ray interpretation: [] My Ultrasound interpretation: [] Decision rules/scores evaluated: [] Discussed with: [] Treatment and Disposition ED Course: A 28-year-old female reports to the emergency department chief complaint of nausea, diarrhea, abdominal pain. States that these have been going on for about 5 to 6 days now this. Reports darker colored stools. She states that otherwise is healthy. Denies any surgeries on her abdomen 4. Due to concerns we did do lab work. Examined patient rather benign except some periumbilical pain. No signs of peritonitis. Lab work reviewed noted. No acute changes seen. We did do a CT of the abdomen that showed no acute process. Due to her symptoms, she did feel improved. Was able to pass p.o. challenge. Will discharge home. Discussed follow-up with GI. Follow-up with your primary care provider in 3 to 5 days. If symptoms worsen, do not improve, or new symptoms arise please report back to emergency department for further evaluation. The patient was understanding and agreeable to plan moving forward. Shared decision making: [] Code status: [] Assessment/Plan Diarrhea (R19.7: Diarrhea, unspecified) Nausea (R11.0: Nausea) Pain in the abdomen (R10.9: Unspecified abdominal pain) Orders: dicyclomine, 10 mg = 1 cap(s), Oral, QID, X 7 day(s), # 28 cap(s), Refills(s) 0, Pharmacy: [facility] #[id number], 160, cm, 12/28/23 10:54:00 EDT, Height/Length Dosing, 81.7, kg, 12/28/23 10:54:00 EDT, Weight Dosing ketorolac, 30 mg = 1 mL, Injection, IV Push, Once, Stop date 12/28/23 12:53:00 EDT, STAT, Start date 12/28/23 12:53:00 EDT, 12/28/23 12:53:00 EDT ondansetron, 4 mg = 1 tab(s), Oral, q8hr, PRN Nausea/Vomiting, # 20 tab(s), Refills(s) 0, Pharmacy: [facility] #[id number], 160, cm, 12/28/23 10:54:00 EDT, Height/Length Dosing, 81.7, kg, 12/28/23 10:54:00 EDT, Weight Dosing ondansetron, 4 mg = 2 mL, Injection, IV Push, Once, Stop date 12/28/23 12:53:00 EDT, STAT, Start date 12/28/23 12:53:00 EDT, 12/28/23 12:53:00 EDT pantoprazole, 40 mg = 10 mL, Injection, IV Push, Once, Stop date 12/28/23 12:53:00 EDT, STAT, Start date 12/28/23 12:53:00 EDT, 12/28/23 12:53:00 EDT pantoprazole, 40 mg = 1 tab(s), Oral, Daily, # 30 tab(s), Refills(s) 0, Pharmacy: [facility] #[id number], 160, cm, 12/28/23 10:54:00 EDT, Height/Length Dosing, 81.7, kg, 12/28/23 10:54:00 EDT, Weight Dosing Sodium Chloride 0.9% intravenous solution, 1,000 mL, Soln-IV, IV, Once, Stop date 12/28/23 12:53:00 EDT, STAT, Start date 12/28/23 12:53:00 EDT, Infuse over 61, minute(s) sucralfate, 1 gm = 1 tab(s), Oral, QID, X 7 day(s), # 28 tab(s), Refills(s) 0, Pharmacy: [facility] #[id number], 160, cm, 12/28/23 10:54:00 EDT, Height/Length Dosing, 81.7, kg, 12/28/23 10:54:00 EDT, Weight Dosing CT Abdomen/Pelvis w/ Contrast Medications Administered Given ketorola (more content not included)... Normal [facility] Comment on above: Result Comment: Elec tronically Signed By: Fredi WEBB, Jose Corrales\.br\Date and Time Signed: 12/28/23 17:52 EDT\.br\Electronically Co-Signed By: Mamta Us M.D.\.br\Date and Time Co-Signed: 12/28/23 18:14 EDT ED Patient Education Noteon 12-28-2023 ED Patient Education Note Gastroenterology Nausea, Adult Nausea is feeling like you may vomit. Feeling like you may vomit is usually not serious, but it may be an early sign of a more serious medical problem. Vomiting is when stomach contents forcefully come out of your mouth. If you vomit, or if you are not able to drink enough fluids, you may not have enough water in your body (get dehydrated). If you do not have enough water in your body, you may: ? Feel tired. ? Feel thirsty. ? Have a dry mouth. ? Have cracked lips. ? Pee (urinate) less often. Older adults and people who have other diseases or a weak body defense system (immune system) have a higher risk of not having enough water in the body. The main goals of treating this condition are: ? To relieve your nausea. ? To ensure your nausea occurs less often. ? To prevent vomiting and losing too much fluid. Follow these instructions at home: Watch your symptoms for any changes. Tell your doctor about them. Eating and drinking ? Take an ORS (oral rehydration solution). This is a drink that is sold at pharmacies and stores. ? Drink clear fluids in small amounts as you are able. These include: ? Water. ? Ice chips. ? Fruit juice that has water added (diluted fruit juice). ? Low-calorie sports drinks. ? Eat bland, ydcr-mg-ukycfr foods in small amounts as you are able, such as: ? Bananas. ? Applesauce. ? Rice. ? Low-fat (lean) meats. ? [place]. ? Crackers. ? Avoid drinking fluids that have a lot of sugar or caffeine in them. This includes energy drinks, sports drinks, and soda. ? Avoid alcohol. ? Avoid spicy or fatty foods. General instructions ? Take qebw-kyj-uqehuih and prescription medicines only as told by your doctor. ? Rest at home while you get better. ? Drink enough fluid to keep your pee (urine) pale yellow. ? Take slow and deep breaths when you feel like you may vomit. ? Avoid food or things that have strong smells. ? Wash your hands often with soap and water for at least 20 seconds. If you cannot use soap and water, use hand social media sr strategy manager. ? Make sure that everyone in your home washes their hands well and often. ? Keep all follow-up visits. Contact a doctor if: ? You feel worse. ? You feel like you may vomit and this lasts for more than 2 days. ? You vomit. ? You are not able to drink fluids without vomiting. ? You have new symptoms. ? You have a fever. ? You have a headache. ? You have muscle cramps. ? You have a rash. ? You have pain while peeing. ? You feel light-headed or dizzy. Get help right away if: ? You have pain in your chest, neck, arm, or jaw. ? You feel very weak or you faint. ? You have vomit that is bright red or looks like coffee grounds. ? You have bloody or black poop (stools) or poop that looks like tar. ? You have a very bad headache, a stiff neck, or both. ? You have very bad pain, cramping, or bloating in your belly (abdomen). ? You have trouble breathing or you are breathing very quickly. ? Your heart is beating very quickly. ? Your skin feels cold and clammy. ? You feel confused. ? You have signs of losing too much water in your body, such as: ? Dark pee, very little pee, or no pee. ? Cracked lips. ? Dry mouth. ? Sunken eyes. ? Sleepiness. ? Weakness. These symptoms may be an emergency. Get help right away. Call 911. ? Do not wait to see if the symptoms will go away. ? Do not drive yourself to the hospital. Summary ? Nausea is feeling like you are about vomit. ? If you vomit, or if you are not able to drink enough fluids, you may not have enough water in your body (get dehydrated). ? Eat and drink what your doctor tells you. Take mlhi-rxt-dteaxsf and prescription medicines only as told by your doctor. ? Contact a doctor right away if your symptoms get worse or you have new symptoms. ? Keep all follow-up visits. This information is not intended to replace advice given to you by your health care provider. Make sure you discuss any questions you have with your health care provider. Document Revised: 12/25/2021 Document Reviewed: 12/25/2021 [employer] Patient Education ? 2022 A2B. Abdominal Pain, Adult Pain in the abdomen (abdominal pain) can be caused by many things. Often, abdominal pain is not serious and it gets better with no treatment or by being treated at home. However, sometimes abdominal pain is serious. Your health care provider will ask questions about your medical history and do a physical exam to try to determine the cause of your abdominal pain. Follow these instructions at home: Medicines ? Take ketl-hhd-njlwwel and prescription medicines only as told by your health care provider. ? Do not take a laxative unless told by your health care provider. General instructions ? Watch your condition for any changes. ? Drink enough fluid to keep your urine (more content not included)... Normal [facility] ED Patient Summaryon 024 ED Patient Summary [address] [address] Patient Discharge Instructions Person Information Name: JACK REA Age: 28 Years Arrival Date: 12/28/2023 10:34:35 Discharge Diagnosis: Diarrhea; Nausea; Pain in the abdomen Primary Care Physician: SHAWNA DE JESUS CNP Provider Information Primary Provider: Mamta Us M.D. Advanced Human Resources Executive:None The exam and treatment you received in the Emergency Department were for an urgent problem and are not intended as complete care. It is important that you follow up with a doctor, nurse practitioner, or physician?s procurement assistant for ongoing care. If your symptoms become worse or you do not improve as expected and you are unable to reach your usual health care provider, you should return to the Emergency Department. We are available 24 hours a day. JACK REA has been given the following list of patient education materials, prescriptions and follow-up instructions: Follow-up Instructions: With: Address: When: Juliana Barton [address], [address] [place] [address] [phone] [facility] (1) In 3 days 12/31/2023 Comments: Call Dr for diagnosis based follow up With: Address: When: SHAWNA DE JESUS [address] [place] [phone] [facility] (1) In 3 days 12/31/2023 Comments: Call Dr for diagnosis based follow up In the event that this physician does not participate in your insurance network, please consult with your insurance company to find a nearby participating provider. Patient Education Materials: Nausea, Adult, Qpsw-oj-Ovmj; Abdominal Pain, Adult A MESSAGE TO ALL PATIENTS REGARDING OPIOIDS PRESCRIPTION OPIOIDS: WHAT YOU NEED TO KNOW Prescription opioids can be used to help relieve pekpqnos-qt-nublit pain and are often prescribed following a surgery or injury, or for certain health conditions. These medications can be an important part of the treatment but also come with serious risks. It is important to work with your healthcare provider to make sure you are getting the safest, most effective care. WHAT ARE THE RISKS AND SIDE EFFECTS OF OPIOID USE? Prescription opioids carry serious risks of addiction and overdose, especially with prolonged use. An opioid overdose, often marked by slowed breathing, can cause sudden . The use of prescription opioids can have a number of side effects as well, even when taken as directed: ? Tolerance?meaning you might need to take more of the medication for the same pain relief ? Physical dependence?meaning you have symptoms of withdrawal when a medication is stopped ? Increased sensitivity to pain ? Constipation ? Nausea, vomiting, and dry mouth ? Sleepiness and dizziness ? Confusion ? Depression ? Low levels of testosterone that can result in lower sex drive, energy, and strength ? Itching and sweating RISKS ARE GREATER WITH: ? History of drug misuse, substance use disorder, or overdose ? Mental health conditions (such as depression or anxiety) ? Sleep apnea ? Older age (65 years and older) ? Avoid alcohol while taking prescription opioids. Also, unless specifically advised by your health care provider, medications to avoid include: ? Benzodiazepines (such as Xanax or Valium) ? Muscle relaxants (such as Soma or Flexeril) ? Hypnotics (such as Ambien or Lunesta) ? Other prescription opioids KNOW YOUR OPTIONS Talk to your health care provider about ways to manage your pain that don?t involve prescription opioids. Some of these options may actually work better and have fewer risks and side effects. Options may include: ? Pain relievers such as acetaminophen, ibuprofen, and naproxen ? Some medication that are also used for depression or seizures ? Physical therapy and exercise ? Cognitive behavioral therapy, a psychological, goal-directed approach, in which patients learn how to modify physical, behavioral, and emotional triggers of pain and stress. IF YOU ARE PRESCRIBED OPIOIDS FOR PAIN: ? Never take opioids in greater amounts or more often than prescribed. ? Follow up with your primary health care provider. o Work together to create a plan on how to manage your pain. o Talk about ways to help manage your pain that don?t involve prescription opioids. o Talk about any and all concerns and side effects. ? Help prevent misuse and abuse o Never sell or share prescription opioids. o Never use another person?s prescription opioids. ? Store prescription opioids in a secure place and out of reach of others (this may include visitors, children, friends, and family). ? Safely dispose of unused prescription opioids: Find your community drug take-back program or your pharmacy mail-back program, or flush them down the toilet, following guidance from the Food and Drug Administration (www.fda.gov/Drugs/ ResourcesForYou). ? Visi (more content not included)... Normal [facility] HEMATOLOGYOrdered By: SYSTEM SYSTEM on 12-28-2023 Basophils/100 WBC (Bld) 0.4 % Normal 0.0 - 2.0 % Remisol Heme Basophils/Leukocytes Auto (Bld) [Pure # fraction] 0.0 E9/L Normal 0.0 - 0.2 E9/L [facility] Heme Eosinophils (Bld) [#/Vol] 0.2 E9/L Normal 0.0 - 0.5 E9/L [facility] Heme Eosinophils/100 WBC (Bld) 1.8 % Normal 0.0 - 8.0 % [facility] Heme Erythrocyte distribution width (RBC) [Ratio] 13.2 % Normal 10.9 - 14.2 % [facility] Heme Hematocrit (Bld) [Volume fraction] 44.4 % Normal 34.0 - 46.0 % [facility] Heme Hemoglobin (Bld) [Mass/Vol] 15.2 g/dL Normal 12.0 - 16.0 gm/dL [facility]e Lymphocytes (Bld) [#/Vol] 2.0 E9/L Normal 1.0 - 4.0 E9/L [facility]e Lymphocytes/100 WBC (Bld) 20.4 % Normal 14.0 - 50.0 % [facility]e MCH (RBC) [Entitic mass] 30.4 pg Normal 27. 0 - 34.0 pg Remisol Heme MCHC (RBC) [Mass/Vol] 34.2 g/dL Normal 31.4 - 36.0 gm/dL [facility] Heme MCV (RBC) [Entitic vol] 88.8 fL Normal 80.0 - 100.0 fL [facility]e Monocytes (Bld) [#/Vol] 0.5 E9/L Normal 0.2 - 1.0 E9/L [facility]e Monocytes/100 WBC (Bld) 5.4 % Normal 4.0 - 14.0 % [facility] Heme Neutrophils (Bld) [#/Vol] 7.0 E9/L Normal 2.0 - 7.5 E9/L [facility]e Neutrophils/100 WBC (Bld) 72.0 % Normal 36.0 - 75.0 % [facility] Platelet mean volume (Bld) [Entitic vol] 8.1 fL Normal 6.4 - 10.8 fL [facility] Heme Platelets (Bld) [#/Vol] 202.0 E9/L Normal 150. 0 - 500.0 E9/L [facility]e RBC (Bld) [#/Vol] 5.0 E12/L Normal 4.3 - 5.9 E12/L [facility] WBC corrected for nucl RBC Auto (Bld) [#/Vol] 9.8 E9/L Normal 4.0 - 11.0 E9/L [facility] Heme Hep Func Panelon 12-28-2023 Albumin [Mass/Vol] 4.4 g/dL Normal 3.3-5.0 [facility] Comment on above: Performed By: #### [id number] #### [facility] [address] [place] [address] Albumin/Globulin (S) [Mass conc ratio] 2.1 Normal 1.1-2.2 [facility] Comment on above: Performed By: #### [id number] #### [facility] [address] [place] [address] ALP [Catalytic activity/Vol] 80 Int._Unit/L Normal 21-98 [facility] Comment on above: Performed By: #### [id number] #### [facility] [address] [place] [address] ALT No additional P-5'-P [Catalytic activity/Vol] 20 Int._Unit/L Normal 6-46 [facility] Comment on above: Performed By: #### [id number] #### [facility] [address] [place] [address] AST [Catalytic activity/Vol] 20 Int._Unit/L Normal 5-43 [facility] Comment on above: Performed By: #### 2 [id number] #### [facility] [address] [place] [address] Bilirubin [Mass/Vol] 0.7 mg/dL Normal 0.0-1.1 [facility] Comment on above: Performed By: #### 2 [id number] #### [facility] [address] [place] [address] Bilirubin.direct [Mass/Vol] 0.1 mg/dL Normal 0.0-0.4 [facility] Comment on above: Performed By: #### 2 [id number] #### [facility] [address] [place] [address] Bilirubin.indirect [Mass or moles/Vol] 0.6 mg/dL Normal 0.1-0.9 [facility] Comment on above: Performed By: #### 2 [id number] #### [facility] [address] [place] [address] Globulin (S) [Mass/Vol] 2.1 g/dL Normal 1.4-4.0 [facility] Comment on above: Performed By: #### 2 [id number] #### [facility] [address] [place] [address] Protein [Mass/Vol] 6.5 g/dL Normal 6.0-7.8 [facility] Comment on above: Performed By: #### 2 [id number] #### [facility] [address] [place] [address] Lipase Levelon 12-28-2023 Lipase [Catalytic activity/Vol] 31 U/L Normal 13-58 [facility] Comment on above: Performed By: #### 2 [id number] #### [facility] [address] [place] [address] U BetaHcg QualOrdered By: Fredis Pineda on 12-28-2023 HCG.beta subunit (U) [Moles/Vol] Negative Normal [facility] Man [facility] Comment on above: Performed By: #### 2 [id number] #### [facility] [address] [place] [address] UA with Cult RflxOrdered By: SYSTEM SYSTEM on 12-28-2023 Bilirubin Ql (U) Negative Normal Negative [facility] UA Auto SS Comment on above: Performed By: #### 4 [id number] #### [facility] [address] [place] [address] Glucose Ql (U) Negative Normal Negative [facility] UA Au to SS Comment on above: Performed By: #### 4 [id number] #### [facility] [address] [place] [address] Hemoglobin Auto test strip (U) [Mass/Vol] Negative Normal Negative [facility] UA Aut o SS Comment on above: Performed By: #### 4 [id number] #### [facility] [address] [place] [address] Ketones Auto test strip Ql (U) Negative Normal Negative [facility] UA Auto SS Comment on above: Performed By: #### 4 [id number] #### [facility] [address] [place] [address] Leukocyte esterase Auto test strip Ql (U) Negative Normal Negative [facility] UA Auto SS Comment on above: Performed By: #### 4 [id number] #### [facility] [address] [place] [address] Nitrite Auto test strip Ql (U) Negative Normal Negative [facility] UA Auto SS Comment on above: Performed By: #### 4 [id number] #### [facility] [address] [place] [address] Protein Ql (U) Negative Normal Negative [facility] UA Au to SS Comment on above: Performed By: #### 4 [id number] #### [facility] [address] [place] [address] Urobilinogen (U) [Mass/Vol] Negative Normal Negative [facility] UA Auto SS Comment on above: Performed By: #### 4 [id number] #### [facility] [address] [place] [address] UA with Cult Rflxon 12-28-19 24 Clarity (U) Clear Normal Clear [facility] Comment on above: Performed By: #### 4 [id number] #### [facility] [address] [place] [address] Color (U) Colorless Abnormal Yellow [facility] Comment on above: Result Comment: Micr oscopic readings are only performed on those samples that meet specific criteria set forth by [facility]. Performed By: #### 4 [id number] #### [facility] [address] [place] [address] pH (U) 7.0 [pH] Invalid Interpretation Code 5.0-9.0 [facility] Comment on above: Performed By: #### 4 [id number] #### [facility] [address] [place] [address] Specific gravity (U) [Rel density] 1.002 Invalid Interpretation Code 1.005-1.030 [facility] Comment on above: Performed By: #### 4 [id number] #### [facility] [address] [place] [address] Type of Urine collection method Clean Catch Normal [facility] Comment on above: Performed By: #### 4 [id number] #### [facility] [address] [place] [address] URINALYSISOrdered By: SYSTEM SYSTEM on 12-28-2023 Clarity (U) Clear (12/28/23 11:00 AM) Normal Clear [facility] UA Auto SS Color (U) Colorless 1 *ABN* (12/28/23 11:00 AM) Invalid Interpretation Code Yellow [facility] UA Auto SS Comment on above: Interpretive Data: M icroscopic readings are only performed on those samples that meet specific criteria set forth by [facility]. pH (U) 7.0 *NA* (12/28/23 11:00 AM) Invalid Interpretation Code 5.0 - 9.0 [facility] UA Auto SS Specific gravity (U) [Rel density] 1.002 *NA* (12/28/23 11:00 AM) Invalid Interpretation Code 1.005 - 1.030 [facility] UA Auto SS URINALYSISOrdered By: Amy Sanchez on 12-28-2023 UA Spec Desc Clean Catch (12/28/23 11:00 AM) Normal [facility] UA Auto SS eGFRon 12-28-2023 eGFR 119 mL/min/1.73 m2 Normal >=59 [facility] Comment on above: Order Comment: Order added by Discern Expert. Performed By: #### 1 [id number] #### [facility] [address] [place] [address] C Urineon 02-12-2023 Bacteria identified Cx Nom (U) Microbiology PROCEDURE: Urine Culture [R1] SOURCE: U CleanCatch BODY SITE: COLLECTED DATE/TIME: 02/10/2023 01:39 EDT RECEIVED DATE/TIME: 02/10/2023 03:46 EDT START DATE/TIME: 02/10/2023 03:46 EDT FREE TEXT SOURCE: Shivam Alvarez DO, DO, Kevin M. FINAL REPORTS Final Report [] Verified Date/Time: 02/12/2023 07:59 EDT 1,000 cfu/ml Mixed skin contaminants Performing Locations R1: This test was performed at: [facility], [address] [place] [address], [address] , , Normal [facility] Comment on above: Performed By: #### 1 [id number] #### [facility] [address] [place] [address] Auto Diffon 02-10-2023 Basophils/100 WBC (Bld) 0.6 % Normal 0.0-2.0 [facility] Comment on above: Order Comment: Order Added by Discern Expert. Performed By: #### 2 058420, 2083837, 01223716, 0984451, 3345871, 9090330 #### [facility] [address] [place] [address] Basophils/Leukocytes Auto (Bld) [Pure # fraction] 0.1 E9/L Normal 0.0-0.2 [facility] Comment on above: Order Comment: Order Added by Discern Expert. Performed By: #### 2 800709, 7967485, 70168577, 1667785, 2806171, 4022961 #### [facility] [address] [place] [address] Eosinophils/100 WBC (Bld) 3.5 % Normal 0.0-8.0 [facility] Comment on above: Order Comment: Order Added by Discern Expert. Performed By: #### 2 316257, 4892140, 57830774, 8238631, 4573847, 4116787 #### [facility] [address] [place] [address] Eosinophils/Leukocytes Auto (Bld) [Pure # fraction] 0.4 E9/L Normal 0.0-0.5 [facility] Comment on above: Order Comment: Order Added by Discern Expert. Performed By: #### 2 439994, 5073117, 09075388, 9052427, 4694518, 7324013 #### [facility] [address] [place] [address] Lymphocytes/100 WBC (Bld) 27.3 % Normal 14.0-50.0 [facility] Comment on above: Order Comment: Order Added by Tr Expert. Performed By: #### 2 517382, 0169621, 29587970, 3238237, 3492820, 9854865 #### [facility] [address] [place] [address] Lymphocytes/Leukocytes Auto (Bld) [Pure # fraction] 2.9 E9/L Normal 1.0-4.0 [facility] Comment on above: Order Comment: Order Added by Tr Expert. Performed By: #### 2 686094, 4032023, 50929548, 4101035, 7160633, 5219403 #### [facility] [address] [place] [address] Monocytes/100 WBC (Bld) 6.7 % Normal 4.0-14.0 [facility] Comment on above: Order Comment: Order Added by Tr Expert. Performed By: #### 2 049104, 2545061, 75849597, 2392592, 5219905, 5793896 #### [facility] [address] [place] [address] Monocytes/Leukocytes Auto (Bld) [Pure # fraction] 0.7 E9/L Normal 0.2-1.0 [facility] Comment on above: Order Comment: Order Added by Tr Expert. Performed By: #### 2 131485, 8447583, 03146579, 7900283, 1197575, 5515721 #### [facility] [address] [place] [address] Neutrophils/100 WBC (Bld) 61.9 % Normal 36.0-75.0 [facility] Comment on above: Order Comment: Order Added by Discern Expert. Performed By: #### 2 584832, 5989258, 63579765, 4459056, 6888712, 2665511 #### [facility] [address] [place] [address] Neutrophils/Leukocytes Auto (Bld) [Pure # fraction] 6.7 E9/L Normal 2.0-7.5 [facility] Comment on above: Order Comment: Order Added by Discern Expert. Performed By: #### 2 746319, 1866931, 87812965, 6179975, 0752267, 2568467 #### [facility] [address] [place] [address] B hCG Qualon 02-10-2023 Beta hCG Ql Negative Normal [facility] Comment on above: Performed By: #### 2 [id number] #### [facility] [address] [place] [address] BMPon 02-10-2023 Creatinine [Mass/Vol] 0.7 mg/dL Normal 0.5-1.3 [facility] Comment on above: Performed By: #### 2 029218, 6269350, 67895467, 1156821, 6589731, 4461142 #### [facility] [address] [place] [address] Urea nitrogen [Mass/Vol] 9 mg/dL Normal 5-21 [facility] Comment on above: Performed By: #### 2 379842, 5707635, 15196265, 3506630, 7884406, 7290075 #### [facility] [address] [place] [address] Urea nitrogen/Creatinine [Mass ratio] 13 No Units Normal 10-20 [facility] Comment on above: Performed By: #### 2 285526, 3562964, 88106395, 7343149, 9097596, 3192433 #### [facility] [address] [place] [address] Anion gap [Moles/Vol] 11 mmol/L Normal 6-16 [facility] Comment on above: Performed By: #### 2 426200, 3008810, 51242181, 3857254, 5898538, 2798349 #### [facility] [address] [place] [address] Calcium [Mass/Vol] 8.8 mg/dL Low 8.9-11.1 [facility] Comment on above: Performed By: #### 2 859172, 1330640, 63445935, 0127788, 2785506, 6722193 #### [facility] [address] [place] [address] Chloride [Moles/Vol] 107 mmol/L Normal 101-111 [facility] Comment on above: Performed By: #### 2 390526, 1609921, 46079059, 9665776, 0547237, 9105626 #### [facility] [address] [place] [address] CO2 [Moles/Vol] 24 mmol/L Normal 21-31 [facility] Comment on above: Performed By: #### 2 390403, 4771934, 01779648, 3701091, 8250667, 2343313 #### [facility] [address] [place] [address] Glucose [Mass/Vol] 96 mg/dL Normal 55-199 [facility] Comment on above: Result Comment: If t his glucose result represents a fasting glucose, interpretation should refer to the following reference range: 55-99 mg/dL Performed By: #### 2 281294, 6020163, 37869384, 8125982, 3814443, 1352586 #### [facility] [address] [place] [address] Potassium [Moles/Vol] 4.0 mmol/L Normal 3.5-5.3 [facility] Comment on above: Performed By: #### 2 013375, 5635922, 10838845, 1475780, 4707693, 2773885 #### [facility] [address] [place] [address] Sodium [Moles/Vol] 138 mmol/L Normal 135-145 [facility] Comment on above: Performed By: #### 2 805831, 8850169, 49240165, 7084568, 9084676, 5476786 #### [facility] [address] [place] [address]457 CBC w/ Auto Diffon 3 Erythrocyte distribution width (RBC) [Ratio] 13.1 % Normal 10.9-14.2 [facility] Comment on above: Performed By: #### 2 548603, 4619692, 12706671, 9652628, 9288117, 9236356 #### [facility] [address] [place], [place] [address] Hematocrit (Bld) [Volume fraction] 43.3 % Normal 34.0-46.0 [facility] Comment on above: Performed By: #### 2 220517, 7827992, 93557878, 3936094, 8863475, 9041956 #### [facility] [address] [place], [place] [address] Hemoglobin (Bld) [Mass/Vol] 15.0 g/dL Normal 12.0-16.0 [facility] Comment on above: Performed By: #### 2 825408, 3056288, 24121419, 3979621, 2566406, 0046522 #### [facility] [address] [place] [address] MCH (RBC) [Entitic mass] 31.1 pg Normal 27.0-34.0 [facility] Comment on above: Performed By: #### 2 347310, 8010811, 79206130, 1364142, 8582499, 1920814 #### [facility] [address] [place], [place] [address] MCHC (RBC) [Mass/Vol] 34.7 g/dL Normal 31.4-36.0 [facility] Comment on above: Performed By: #### 2 867142, 5153754, 01345489, 9143723, 4101251, 5787789 #### [facility] [address] [place] [address] MCV (RBC) [Entitic vol] 89.6 fL Normal 80.0-100.0 [facility] Comment on above: Performed By: #### 2 695356, 3365391, 91095144, 4505596, 3033393, 4863802 #### [facility] [address] [place] [address] Platelet mean volume (Bld) [Entitic vol] 8.7 fL Normal 6.4-10.8 [facility] Comment on above: Performed By: #### 2 704654, 5997414, 54120364, 6946702, 3809989, 5151310 #### [facility] [address] [place] [address] Platelets (Bld) [#/Vol] 204.0 E9/L Normal 150.0-500.0 [facility] Comment on above: Performed By: #### 2 777298, 2926605, 88258360, 3656175, 0690729, 6024425 #### [facility] [address] [place], [place] [address] RBC (Bld) [#/Vol] 4.8 E12/L Normal 4.3-5.9 [facility] Comment on above: Performed By: #### 2 924338, 9627922, 67137898, 0785169, 1460056, 4627193 #### [facility] [address] [place] [address] WBC corrected for nucl RBC Auto (Bld) [#/Vol] 10.8 E9/L Normal 4.0-11.0 [facility] Comment on above: Performed By: #### 2 697185, 1367517, 48764722, 4024430, 5735012, 6360784 #### [facility] [address] [place] [address] CHEMISTRYOrdered By: SYSTEM SYSTEM on 02-10-2023 Albumin [Mass/Vol] 4.0 g/dL Normal 3.3 - 5.0 gm/dL [facility] Albumin/Globulin [Mass ratio] 1.4 {ratio} Normal 1.1 - 2.2 [facility] ALP [Catalytic activity/Vol] 65 [iU]/d Normal 21 - 98 Int._Unit/L [facility] ALT No additional P-5'-P [Catalytic activity/Vol] 15 [iU]/d Normal 6 - 46 Int._Unit/L [facility] AST [Catalytic activity/Vol] 18 [iU]/d Normal 5 - 43 Int._Unit/L [facility] Bilirubin [Mass/Vol] 0.3 mg/dL Normal 0.0 - 1 .1 mg/dL [facility] Bilirubin.direct [Mass/Vol] 0.1 mg/dL Normal 0.1 - 0.4 mg/dL [facility] Bilirubin.indirect [Mass or moles/Vol] 0.2 mg/dL Normal 0.1 - 0.9 mg/dL [facility] Creatinine [Mass/Vol] 0.7 mg/dL Normal 0.5 - 1.3 mg/dL [facility] GFR/1.73 sq M.predicted among non-blacks MDRD (S/P/Bld) [Vol rate/Area] 121 mL/min/1.73 m2 Normal >=59mL/min/1 .73 m2 FT [facility] S Globulin (S) [Mass/Vol] 2.9 g/dL Normal 1.4 - 4.0 gm/dL [facility] Protein [Mass/Vol] 6.9 g/dL Normal 6.0 - 7.8 gm/dL [facility] Urea nitrogen [Mass/Vol] 9 mg/dL Normal 5 - 21 mg/d L [facility] Urea nitrogen/Creatinine [Mass ratio] 13 mg/mg Normal 10 - 20 [facility] CHEMISTRYOrdered By: Milka Bowen on 02-10-2023 Anion gap [Moles/Vol] 11 mmol/L Normal 6 - 16 mEq/L [facility] Calcium [Mass/Vol] 8.8 mg/dL Low 8.9 - 11. 1 mg/dL [facility] Chloride [Moles/Vol] 107 mmol/L Normal 101 - 1 11 mmol/L [facility] CO2 [Moles/Vol] 24 mmol/L Normal 21 - 31 mmol/L [facility] Glucose [Mass/Vol] 96 mg/dL Normal 55 - 199 mg/dL [facility] Lipase [Catalytic activity/Vol] 40 U/L Normal 13 - 58 unit/L [facility] Potassium [Moles/Vol] 4.0 mmol/L Normal 3.5 - 5.3 mmol/L [facility] Sodium [Moles/Vol] 138 mmol/L Normal 135 - 145 mmol/L [facility] CT Abdomen/Pelvis w/o Contra ston 02-10-2023 CT Abdomen/Pelvis w/o Contrast Exam Date/Time: 02/10/2023 02:07 EDT Reason for Exam: right flank pain;Other (please specify) Report IMPRESSION: Punctate nonobstructing renal calculi. EXAMINATION: CT Abdomen/Pelvis w/o Contrast HISTORY: right flank pain. TECHNIQUE: Non-IV contrast imaging of the abdomen and pelvis was performed using standard technique, scanning from just above the dome of the diaphragm to the symphysis pubis. Unenhanced imaging is limited for the evaluation of some intra-abdominal and pelvic pathology. All CT scans at this facility use dose modulation, iterative reconstruction, and/or weight based dosing when appropriate to reduce radiation dose to as low as reasonably achievable. COMPARISON: None. RESULT: Abdomen / Pelvis: Liver: Unremarkable. Biliary: Gallbladder unremarkable. Pancreas: Unremarkable. Spleen: No splenomegaly. Adrenals: No mass. Kidneys: Punctate 1 mm right and left interpolar calculi. No hydronephrosis. No suspicious lesions in the unenhanced kidneys. GI Tract: No bowel dilation. Normal appendix. Lymph Nodes: No lymphadenopathy. Mesentery/peritoneu m/retroperitoneum: No ascites or mass. Vasculature: No abdominal aortic or iliac artery aneurysm. Report Pelvis: No significant free fluid. IUD. Bladder decompressed. Bones/Soft Tissues: No acute osseous findings. Lower thorax: Unremarkable. Ordering Provider: Shivam Alvarez FINAL REPORT Dictated: 02/10/2023 9:54 am Humberto Horne MD Signed (Electronic Signature): 02/10/2023 9:54 am Signed by: Humberto Horne MD Transcribed by: DAVID Technologist: BRIAN Technical Comments Contrast: None Rectal Contrast Given? No Oral contrast amount in ml's: 0 Normal [facility] Consent for Treatmenton 02-01 Consent for Treatment [id number] EB#[id number]:127 Normal [facility] Discharge Instructionson Discharge Instructions [id number]:127 Normal [facility] ED Clinical Summaryon 2022 ED Clinical Summary [place] [id number] ED Clinical Summary Person Information Name: JACK REA Ivett/[facility] Age: 27 Years : 1995 Sex: Female Language: Chadian PCP: NONE, XXXX Marital Status: Phone: [phone] Visit Id: Visit Reason: Vomiting; Nausea; Flank pain; SIDE PAIN, TROUBLE URINATING, NAUSEA Speciality: Acuity: 3 Enc Type: Emergency Med Service: Emergency Arrival: 02/10/2023 01:16:59 Discharge: 02/10/2023 03:21:48 LOS: 000 02:05 Checkin: 02/10/2023 01:16:59 Checkout: 02/10/2023 03:21:48 Dispo Type: Home (Routine DC) EVENTS: Event Name Event Status Request Date/Time Start Date/Time Complete Date/Time Arrive Complete 02/10/2023 01:16:59 02/10/2023 01:16:59 02/10/2023 01:16:59 Document Home Meds Request 02/10/2023 01:16:59 Triage Complete 02/10/2023 01:16:59 02/10/2023 01:25:50 02/10/2023 01:25:50 Bed Assign Complete 02/10/2023 01:27:08 02/10/2023 01:27:08 02/10/2023 01:27:08 Dr Exam Complete 02/10/2023 01:27:08 02/10/2023 01:36:24 02/10/2023 01:36:24 RN Exam Complete 02/10/2023 01:27:08 02/10/2023 01:55:53 02/10/2023 01:55:53 Pending Labs Complete 02/10/2023 01:31:35 02/10/2023 02:38:05 Lab Complete 02/10/2023 01:31:35 02/10/2023 02:38:05 Urine Collect Complete 02/10/2023 01:31:35 02/10/2023 02:04:34 Patient Care Complete 02/10/2023 01:31:35 02/10/2023 01:43:09 Registration Complete 02/10/2023 01:36:24 02/10/2023 01:59:37 02/10/2023 01:59:37 Pending Labs Complete 02/10/2023 01:46:20 02/10/2023 02:34:29 CT Complete 02/10/2023 01:47:07 02/10/2023 02:06:55 02/10/2023 02:07:19 Meds Admin Complete 02/10/2023 01:47:07 02/10/2023 01:52:30 Pending Labs Complete 02/10/2023 01:52:49 02/10/2023 01:52:49 02/10/2023 02:38:06 Lab Complete 02/10/2023 01:52:49 02/10/2023 01:52:49 02/10/2023 02:38:06 Pending Labs Collected 02/10/2023 01:57:20 02/10/2023 01:57:20 Lab Collected 02/10/2023 01:57:20 02/10/2023 01:57:20 Reg Complete Request 02/10/2023 01:59:37 Reg Bed Request Complete 02/10/2023 01:59:37 02/10/2023 01:59:37 02/10/2023 01:59:37 Pending Labs Complete 02/10/2023 02:01:57 02/10/2023 02:01:57 02/10/2023 02:02:05 Lab Complete 02/10/2023 02:01:57 02/10/2023 02:01:57 02/10/2023 02:02:05 Discharge Complete 02/10/2023 03:08:08 02/10/2023 03:21:57 02/10/2023 03:21:57 Patient Care Request 02/10/2023 03:09:55 Transfer Complete 02/10/2023 03:21:57 02/10/2023 03:21:57 02/10/2023 03:21:57 ADDRESS: [address] [facility] [id number] PHYS DOC NOTES: MEDICAL INFORMATION: Prescriptions Given: New Medications [id number], [address] [place], [place] [id number], [phone] naproxen (naproxen 500 mg Tab) 1 Tablets By Mouth 2 times a day as needed for pain. Refills: 0. ondansetron (Zofran ODT 4 mg Tab-Dis) 1 Tablets By Mouth every 8 hours as needed Nausea/Vomiting. Refills: 0. oxycodone (oxyCODONE 5 mg Cap) 1 Capsules By Mouth every 6 hours as needed Pain 8-10. Refills: 0. Medications to Continue with No Changes Other Medications promethazine (Phenergan 25 mg Tab) 1 Tablets By Mouth every 6 hours. Take one by mouth every six hours for nausea and vomiting. Refills: 0. PATIENT EDUCATION INFORMATION: Instructions: Flank Pain, Adult Follow up: With: Address: When: [address], [address], [facility] [address] [place] [address] Business (1) In 3 days 02/13/2023 Comments: Strain urine. Take pain medication as prescribed. Follow-up with urology DIAGNOSIS: Acute right flank pain Normal [facility] ED Note-Physicianon 02-11-20 ED Note-Physician Basic Information Time Seen: Shivam Alvarez DO 02/10/2023 01:36 Chief Complaint right flank pain starting today nausea and vomitng. denies fever. History of Present Illness 27-year-old female to the emergency department chief complaint of right flank pain. Started today suddenly. Is associate with nausea without vomiting. Denies any fever, sweats, chills. Denies any abdominal pain. She is otherwise been at her baseline health. She reports that she has had an urge to have a bowel movement with associate with the pain tonight. Review of Systems A 10 point review of systems is negative except as noted above. Medical and Surgical History: Reviewed and noted Social history: Lives at home Tobacco: Denies Physical Exam Vitals & Measurements T: 37.2 ?C(Tympanic) HR: 67(Monitored) RR: 17 BP: 118/81 SpO2: 96% HT: 160 cm WT: 81.4 kg BMI: 31.8 VITALS: I have reviewed the triage vital signs. GENERAL: Well developed, well appearing adult in no acute distress. NEURO: Alert and oriented. Moves all extremities. Face is symmetric and expressive. EYES: PERRL. No scleral icterus or conjunctival injection. No discharge. HENT: Normocephalic, atraumatic. Hearing is grossly intact. Nares grossly patent and without discharge. Mucous membranes moist. NECK: No JVD. Patient moves neck without restriction. CARDIO: Rhythm regular. Normal rate. No murmur, rub, or gallop. Pulses equal bilaterally in the upper and lower extremity. No lower extremity edema. PULM: Lungs clear to auscultation in all cain. No wheezes, rales, or rhonchi. No conversational dyspnea. No splinting, stridor, or accessory muscle use. GI/: Abdomen is soft and non-tender. Normoactive bowel sounds. EXTREMITIES: Symmetric muscle bulk. No joint swelling. No clubbing, cyanosis, or deformity. SKIN: Warm and dry. Normal turgor. No rash or lesions appreciated. PSYCH: Mood, affect, and interaction is appropriate to the setting. Medical Decision Making Well-appearing 27-year-old female to the emergency department chief complaint of right-sided flank pain. Vital stable, the patient is afebrile. Toradol and Zofran are given. CT scan without contrast to evaluate for stone. Patient agrees with this plan. CBC chemistry without significant abnormality. Urinalysis without evidence of infection. CT scan shows a nonobstructing right renal stone. Patient reevaluated had significant relief of pain with medication. I discussed that she does have an incidentally visualized stone. Otherwise negative workup. We discussed possibilities. I believe given the symptomology that this is likely a nonvisualized stone or already passed stone that it caused her symptoms. She was given urine strainer. Urology follow-up. Naproxen, Zofran, oxycodone for continued pain at home. Return precautions were discussed. All questions were answered. The patient was discharged home. Assessment/Plan Acute right flank pain (R10.9: Unspecified abdominal pain) Ordered: oxycodone, 5 mg = 1 cap(s), Oral, q6hr, PRN Pain 8-10, # 4 cap(s), Refills(s) 0, Pharmacy: [facility] #[id number], 160, cm, 02/10/23 1:25:00 EDT, Height/Length Dosing, 81.4, kg, 02/10/23 1:25:00 EDT, Weight Dosing Orders: ketorolac, 15 mg = 1 mL, Injection, IV Push, Once, Stop date 02/10/23 1:46:00 EDT, STAT, Start date 02/10/23 1:46:00 EDT, 02/10/23 1:46:00 EDT naproxen, 500 mg = 1 tab(s), Oral, BID, PRN for pain, # 20 tab(s), Refills(s) 0, Pharmacy: [facility] #[id number], 160, cm, 02/10/23 1:25:00 EDT, Height/Length Dosing, 81.4, kg, 02/10/23 1:25:00 EDT, Weight Dosing ondansetron, 4 mg = 1 tab(s), Oral, q8hr, PRN Nausea/Vomiting, # 12 tab(s), Refills(s) 0, Pharmacy: [facility] #[id number], 160, cm, 02/10/23 1:25:00 EDT, Height/Length Dosing, 81.4, kg, 02/10/23 1:25:00 EDT, Weight Dosing ondansetron, 4 mg = 2 mL, Injection, IV Push, Once, Stop date 02/10/23 1:46:00 EDT, STAT, Start date 02/10/23 1:46:00 EDT, 02/10/23 1:46:00 EDT Automated Diff Basic Metabolic Panel Beta hCG Qual CBC w/ Auto Diff CT Abdomen/Pelvis w/o Contrast eGFR Hepatic Function Panel Lipase Level Saline Lock Insert UA With Cult Reflex Urine Culture Urine Strainer to go Medications Administered Given ketorolac 15 mg/mL Inj, 15 mg, IV Push Zofran 4 mg/2 mL Injection, 4 mg, IV Push Disposition Plan Patient Discharge Condition Stable Discharge Disposition Home Discharge Prescription List Prescriptions naproxen 500 mg Tab, 500 mg= 1 tab(s), Oral, BID, PRN oxyCODONE 5 mg Cap, 5 mg= 1 cap(s), Oral, q6hr, PRN Zofran ODT 4 mg Tab-Dis, 4 mg= 1 tab(s), Oral, q8hr, PRN Follow-up With When Contact Information Lev ZIYAD In 3 days 02/13/[address] [facility] (1) Additional Instructions: Strain urine. Take pain medication as prescribed. Follow-up with urology Patient Education Flank Pain, Adult Problem List/Past Medical History Ongoing Denies Historical No qualifying data Procedure/Surgi (more content not included)... Normal [facility] Comment on above: Result Comment: Elec tronically Signed By: Shivam Alvarez DO\.br\Date and Time Signed: 02/10/23 03:45 EDT ED Patient Education Noteon 02-10-2023 ED Patient Education Note Orthopedics Flank Pain, Adult Flank pain is pain that is located on the side of the body between the upper abdomen and the spine. This area is called the flank. The pain may occur over a short period of time (acute), or it may be long-term or recurring (chronic). It may be mild or severe. Flank pain can be caused by many things, including: ? Muscle soreness or injury. ? Kidney infection, kidney stones, or kidney disease. ? Stress. ? A disease of the spine (vertebral disk disease). ? A lung infection (pneumonia). ? Fluid around the lungs (pulmonary edema). ? A skin rash caused by the chickenpox virus (shingles). ? Tumors that affect the back of the abdomen. ? Gallbladder disease. Follow these instructions at home: ? Drink enough fluid to keep your urine pale yellow. ? Rest as told by your health care provider. ? Take lbjb-fmf-xmrfdxx and prescription medicines only as told by your health care provider. ? Keep a journal to track what has caused your flank pain and what has made it feel better. ? Keep all follow-up visits. This is important. Contact a health care provider if: ? Your pain is not controlled with medicine. ? You have new symptoms. ? Your pain gets worse. ? Your symptoms last longer than 2?3 days. ? You have trouble urinating or you are urinating very frequently. Get help right away if: ? You have trouble breathing or you are short of breath. ? Your abdomen hurts or it is swollen or red. ? You have nausea or vomiting. ? You feel faint, or you faint. ? You have blood in your urine. ? You have flank pain and a fever. These symptoms may represent a serious problem that is an emergency. Do not wait to see if the symptoms will go away. Get medical help right away. Call your local emergency services (911 in the [place] Do not drive yourself to the hospital. Summary ? Flank pain is pain that is located on the side of the body between the upper abdomen and the spine. ? The pain may occur over a short period of time (acute), or it may be long-term or recurring (chronic). It may be mild or severe. ? Flank pain can be caused by many things. ? Contact your health care provider if your symptoms get worse or last longer than 2?3 days. This information is not intended to replace advice given to you by your health care provider. Make sure you discuss any questions you have with your health care provider. Document Revised: 08/31/2021 Document Reviewed: 08/31/2021 Elsevier Patient Education ? 2022 [employer] Normal [facility] ED Patient Summaryon 023 ED Patient Summary [address] [address] Patient Discharge Instructions Person Information Name: JACK REA Age: 27 Years Arrival Date: 02/10/2023 01:16:59 Discharge Diagnosis: Acute right flank pain Primary Care Physician: NONE, XXXX Provider Information Primary Provider: Shivam Alvarez DO Advanced Human Resources Executive:Onesimo The exam and treatment you received in the Emergency Department were for an urgent problem and are not intended as complete care. It is important that you follow up with a doctor, nurse practitioner, or physician?s procurement assistant for ongoing care. If your symptoms become worse or you do not improve as expected and you are unable to reach your usual health care provider, you should return to the Emergency Department. We are available 24 hours a day. JACK REA has been given the following list of patient education materials, prescriptions and follow-up instructions: Follow-up Instructions: With: Address: When: Lev [address], [address], [place] [id number] Business (1) In 3 days 02/13/2023 Comments: Strain urine. Take pain medication as prescribed. Follow-up with urology In the event that this physician does not participate in your insurance network, please consult with your insurance company to find a nearby participating provider. Patient Education Materials: Flank Pain, Adult A MESSAGE TO ALL PATIENTS REGARDING OPIOIDS PRESCRIPTION OPIOIDS: WHAT YOU NEED TO KNOW Prescription opioids can be used to help relieve bxrfrsmg-et-uqayjz pain and are often prescribed following a surgery or injury, or for certain health conditions. These medications can be an important part of the treatment but also come with serious risks. It is important to work with your healthcare provider to make sure you are getting the safest, most effective care. WHAT ARE THE RISKS AND SIDE EFFECTS OF OPIOID USE? Prescription opioids carry serious risks of addiction and overdose, especially with prolonged use. An opioid overdose, often marked by slowed breathing, can cause sudden . The use of prescription opioids can have a number of side effects as well, even when taken as directed: ? Tolerance?meaning you might need to take more of the medication for the same pain relief ? Physical dependence?meaning you have symptoms of withdrawal when a medication is stopped ? Increased sensitivity to pain ? Constipation ? Nausea, vomiting, and dry mouth ? Sleepiness and dizziness ? Confusion ? Depression ? Low levels of testosterone that can result in lower sex drive, energy, and strength ? Itching and sweating RISKS ARE GREATER WITH: ? History of drug misuse, substance use disorder, or overdose ? Mental health conditions (such as depression or anxiety) ? Sleep apnea ? Older age (65 years and older) ? Avoid alcohol while taking prescription opioids. Also, unless specifically advised by your health care provider, medications to avoid include: ? Benzodiazepines (such as Xanax or Valium) ? Muscle relaxants (such as Soma or Flexeril) ? Hypnotics (such as Ambien or Lunesta) ? Other prescription opioids KNOW YOUR OPTIONS Talk to your health care provider about ways to manage your pain that don?t involve prescription opioids. Some of these options may actually work better and have fewer risks and side effects. Options may include: ? Pain relievers such as acetaminophen, ibuprofen, and naproxen ? Some medication that are also used for depression or seizures ? Physical therapy and exercise ? Cognitive behavioral therapy, a psychological, goal-directed approach, in which patients learn how to modify physical, behavioral, and emotional triggers of pain and stress. IF YOU ARE PRESCRIBED OPIOIDS FOR PAIN: ? Never take opioids in greater amounts or more often than prescribed. ? Follow up with your primary health care provider. o Work together to create a plan on how to manage your pain. o Talk about ways to help manage your pain that don?t involve prescription opioids. o Talk about any and all concerns and side effects. ? Help prevent misuse and abuse o Never sell or share prescription opioids. o Never use another person?s prescription opioids. ? Store prescription opioids in a secure place and out of reach of others (this may include visitors, children, friends, and family). ? Safely dispose of unused prescription opioids: Find your community drug take-back program or your pharmacy mail-back program, or flush them down the toilet, following guidance from the Food and Drug Administration (www.fda.gov/Drugs/ ResourcesForYou). ? Visit www.cdc.gov/drugove rdose to learn about the risks of opioids abuse and overdose. ? If you believe you may be struggling with addiction, tell your health care aide and ask for guidance (more content not included)... Normal [facility] HEMATOLOGYOrdered By: SYSTEM SYSTEM on 02-10-2023 Basophils/100 WBC (Bld) 0.6 % Normal 0.0 - 2.0 % [facility] HemeAutoSS Basophils/Leukocytes Auto (Bld) [Pure # fraction] 0.1 E9/L Normal 0.0 - 0.2 E9/L [facility] HemeAutoSS Eosinophils/100 WBC (Bld) 3.5 % Normal 0.0 - 8.0 % [facility] HemeAutoSS Eosinophils/Leukocytes Auto (Bld) [Pure # fraction] 0.4 E9/L Normal 0.0 - 0.5 E9/L [facility] HemeAutoSS Lymphocytes/100 WBC (Bld) 27.3 % Normal 14.0 - 50.0 % [facility] HemeAutoSS Lymphocytes/Leukocytes Auto (Bld) [Pure # fraction] 2.9 E9/L Normal 1.0 - 4.0 E9/L [facility] HemeAutoSS Monocytes/100 WBC (Bld) 6.7 % Normal 4.0 - 14.0 % [facility] HemeAutoSS Monocytes/Leukocytes Auto (Bld) [Pure # fraction] 0.7 E9/L Normal 0.2 - 1.0 E9/L [facility] HemeAutoSS Neutrophils/100 WBC (Bld) 61.9 % Normal 36.0 - 75.0 % [facility] HemeAutoSS Neutrophils/Leukocytes Auto (Bld) [Pure # fraction] 6.7 E9/L Normal 2.0 - 7.5 E9/L [facility] HemeAutoSS HEMATOLOGYOrdered By: Pito Bowen on 02-10-2023 Erythrocyte distribution width (RBC) [Ratio] 13.1 % Normal 10.9 - 14.2 % [facility] HemeAutoSS Hematocrit (Bld) [Volume fraction] 43.3 % Normal 34.0 - 46.0 % [facility] HemeAutoSS Hemoglobin (Bld) [Mass/Vol] 15.0 g/dL Normal 12.0 - 16.0 gm/dL [facility] HemeAutoSS MCH (RBC) [Entitic mass] 31.1 pg Normal 27. 0 - 34.0 pg [facility] HemeAutoSS MCHC (RBC) [Mass/Vol] 34.7 g/dL Normal 31.4 - 36.0 gm/dL [facility] HemeAutoSS MCV (RBC) [Entitic vol] 89.6 fL Normal 80.0 - 100.0 fL [facility] HemeAutoSS Platelet mean volume (Bld) [Entitic vol] 8.7 fL Normal 6.4 - 10.8 fL [facility] HemeAutoSS Platelets (Bld) [#/Vol] 204.0 E9/L Normal 150. 0 - 500.0 E9/L [facility] HemeAutoSS RBC (Bld) [#/Vol] 4.8 E12/L Normal 4.3 - 5.9 E12/L [facility] HemeAutoSS WBC corrected for nucl RBC Auto (Bld) [#/Vol] 10.8 E9/L Normal 4.0 - 11.0 E9/L [facility] HemeAutoSS Hep Func Panelon 02-10-2023 Albumin [Mass/Vol] 4.0 g/dL Normal 3.3-5.0 [facility] Comment on above: Performed By: #### 2 [id number], 0800319, [id number], 2949972, 1785538, 8830699 #### [facility] [address] [place] [address] Albumin/Globulin (S) [Mass conc ratio] 1.4 Normal 1.1-2.2 [facility] Comment on above: Performed By: #### 2 656771, 1698155, 98725656, 2103694, 0882317, 8265655 #### [facility] [address] [place] [address] ALP [Catalytic activity/Vol] 65 Int._Unit/L Normal 21-98 [facility] Comment on above: Performed By: #### 2 393697, 3426769, 43410235, 4283748, 2500329, 5003873 #### [facility] [address] [place] [address] ALT No additional P-5'-P [Catalytic activity/Vol] 15 Int._Unit/L Normal 6-46 [facility] Comment on above: Performed By: #### 2 248155, 3778732, 01741195, 5751151, 0430146, 7693769 #### [facility] [address] [place] [address] AST [Catalytic activity/Vol] 18 Int._Unit/L Normal 5-43 [facility] Comment on above: Performed By: #### 2 815840, 1941298, 32919309, 6208858, 0171194, 4107416 #### [facility] [address] [place] [address] Bilirubin [Mass/Vol] 0.3 mg/dL Normal 0.0-1.1 [facility] Comment on above: Performed By: #### 2 050846, 7074830, 42150518, 8910091, 0347121, 2270501 #### [facility] [address] [place] [address] Bilirubin.direct [Mass/Vol] 0.1 mg/dL Normal 0.1-0.4 [facility] Comment on above: Performed By: #### 2 423062, 1289057, 65665378, 8341421, 0564032, 6548554 #### [facility] [address] [place] [address] Bilirubin.indirect [Mass or moles/Vol] 0.2 mg/dL Normal 0.1-0.9 [facility] Comment on above: Performed By: #### 2 546609, 0907411, 76302849, 5598812, 2463518, 3028953 #### [facility] [address] [place] [address] Globulin (S) [Mass/Vol] 2.9 g/dL Normal 1.4-4.0 F [facility] Comment on above: Performed By: #### 2 794396, 2405368, 19899343, 9574327, 1864464, 4465792 #### [facility] [address] [place] [address] Protein [Mass/Vol] 6.9 g/dL Normal 6.0-7.8 [facility] Comment on above: Performed By: #### 2 114575, 8468757, 70721181, 2647455, 8757637, 6570503 #### [facility] [address] [place] [address] Lipase Levelon 02-10-2023 Lipase [Catalytic activity/Vol] 40 U/L Normal 13-58 [facility] Comment on above: Performed By: #### 2 829311, 9865719, 72557086, 7989804, 0910816, 6789895 #### [facility] [address] [place] [address] RAD - Preliminary Cat Scan R eporton 02-10-2023 RAD - Preliminary Cat Scan Report [id number] Normal [facility] SEROLOGYOrdered By: Milka Bowen on 02-10-2023 Beta hCG Ql Negative (02/10/23 1:39 AM) Normal [facility] Man Sero UA With Cult Reflexon 2022 Bacteria LM Ql (Urine sed) TRACE Normal Trace [facility] Comment on above: Performed By: #### 1 5202920, 4122209 #### [facility] [address] [place] [address] Bilirubin Ql (U) Negative Normal Negative [facility] Comment on above: Performed By: #### 1 1834259, 6462454 #### [facility] [address] [place] [address] Clarity (U) CLEAR Normal Clear [facility] Comment on above: Performed By: #### 1 0428525, 7029403 #### [facility] [address] [place] [address] Color (U) YELLOW Normal Yellow [facility] Comment on above: Performed By: #### 1 6663808, 2952403 #### [facility] [address] [place] [address] Epithelial cells.squamous LM.HPF (Urine sed) [#/Area] 3-4 Normal 0-2 [facility] Comment on above: Performed By: #### 1 7208133, 2003389 #### [facility] [address] [place] [address] Glucose Test strip (U) [Mass/Vol] Negative Normal Negative [facility] Comment on above: Performed By: #### 1 0500335, 6380062 #### [facility] [address] [place] [address] Hemoglobin Ql (U) Negative Normal Negative [facility] Comment on above: Performed By: #### 1 8474596, 1138295 #### [facility] [address] [place] [address] Ketones (U) [Mass/Vol] Negative Normal Negative [facility] Comment on above: Performed By: #### 1 9060095, 6597352 #### [facility] [address] [place] [address] Cos Cob.plasma/Cos Cob.R BC (Bld) [Mass ratio] 0-3 Normal 0-3 [facility] Comment on above: Performed By: #### 1 8414141, 0445789 #### [facility] [address] [place] [address] Mucus Ql (Urine sed) TRACE Normal Fish er [facility] Comment on above: Performed By: #### 1 1013516, 6454534 #### [facility] [address] [place] [address] Nitrite Ql (U) Negative Normal Negative [facility] Comment on above: Performed By: #### 1 1766212, 0570328 #### [facility] [address] [place] [address] pH (U) 6.5 [pH] Invalid Interpretation Code 5.0-9.0 [facility] Comment on above: Performed By: #### 1 0540410, 2978535 #### [facility] [address] [place] [address] Protein (U) [Mass/Vol] Negative Normal Negative [facility] Comment on above: Performed By: #### 1 0107576, 9771730 #### [facility] [address] [place] [address] Specific gravity (U) [Rel density] 1.010 Invalid Interpretation Code 1.005-1.030 [facility] Comment on above: Performed By: #### 1 4638821, 6396478 #### [facility] [address] [place] [address] Type of Urine collection method Clean Catch Normal [facility] Comment on above: Performed By: #### 1 0755469, 5523514 #### [facility] [address] [place] [address] Urobilinogen Qn (U) 0.2 {Adam'U}/dL Normal 0.0-1.0 [facility] Comment on above: Performed By: #### 1 0467647, 8151838 #### [facility] [address] [place] [address] WBC Auto Ql (U) 1+ Abnormal Negative [facility] Comment on above: Performed By: #### 1 7247498, 4096400 #### [facility] [address] [place] [address] WBC LM.HPF (Urine sed) [#/Area] 0-5 Normal 0-5 [facility] Comment on above: Performed By: #### 1 4594495, 8662949 #### [facility] [address] [place] [address] URINALYSISOrdered By: Pito Bowen on 02-10-2023 Bacteria LM Ql (Urine sed) Trace /HPF Normal Trace/HPF [facility] UA Auto SS Bilirubin Ql (U) Negative (02/10/23 1:39 AM) Normal Negative [facility] UA Auto SS Clarity (U) Clear (02/10/23 1:39 AM) Normal Clear [facility] UA Auto SS Color (U) Yellow (02/10/23 1:39 AM) Normal Yellow [facility] UA Auto SS Epithelial cells.squamous LM.HPF (Urine sed) [#/Area] 3-4 /HPF Normal 0-2/HPF [facility] UA Aut o SS Glucose Test strip (U) [Mass/Vol] Negative (02/10/23 1:39 AM) Normal Negative [facility] UA Auto SS Hemoglobin Ql (U) Negative (02/10/23 1:39 AM) Normal Negative [facility] UA Auto SS Ketones (U) [Mass/Vol] Negative (02/10/23 1:39 AM) Normal Negative [facility] UA Auto SS Cos Cob.plasma/Cos Cob.R BC (Bld) [Mass ratio] 0-3 /HPF Normal 0-3/HPF [facility] UA Au to SS Mucus Ql (Urine sed) Trace (02/10/23 1:39 AM) Normal [facility] UA Auto SS Nitrite Ql (U) Negative (02/10/23 1:39 AM) Normal Negative [facility] UA Auto SS pH (U) 6.5 *NA* (02/10/23 1:39 AM) Invalid Interpretation Code 5.0 - 9.0 [facility] UA Auto SS Protein (U) [Mass/Vol] Negative (02/10/23 1:39 AM) Normal Negative [facility] UA Auto SS Specific gravity (U) [Rel density] 1.010 *NA* (02/10/23 1:39 AM) Invalid Interpretation Code 1.005 - 1.030 [facility] UA Auto SS UA Spec Desc Clean Catch (02/10/23 1:39 AM) Normal [facility] UA Auto SS Urobilinogen Qn (U) 0.8739763 {Adam'U}/dL Normal 0.0 - 1.0 EU/dL [facility] UA Auto SS WBC Auto Ql (U) 1+ *ABN* (02/10/23 1:39 AM) Invalid Interpretation Code Negative [facility] UA Auto SS WBC LM.HPF (Urine sed) [#/Area] 0-5 /HPF Normal 0-5/HPF [facility] UA Auto SS eGFRon 02-10-2023 GFR/1.73 sq M.predicted among non-blacks MDRD (S/P/Bld) [Vol rate/Area] 121 mL/min/1.73 m2 Normal >=59 [facility] Comment on above: Order Comment: Order added by Discern Expert. Result Comment: Program Therapist wilmar kidney disease could be indicated at eGFR's of less than 60 mL/min/1.73m2. Kidney failure is indicated at less than 15 mL/min/1.73m2. Performed By: #### 2 498044, 0750040, 89849154, 5998989, 8361964, 3923882 #### [facility] [address] [place] [address] PAP ACOG PANEL 2: 21 to 29on 09-20-2021 . . Normal [facility] Comment on above: Performed By: #### 4 595636 #### [facility] [address] [place] [address] Dr. Maury Bradley Age Gdln ACOG Testing 21-29 Normal [facility] Comment on above: Performed By: #### 4 963900 #### [facility] [address] [place] [address] Dr. Maury Bradley DIAGNOSIS: Comment [facility] Comment on above: Result Comment: NEGA TIVE FOR INTRAEPITHELIAL LESION OR MALIGNANCY. Performed By: #### 4 466825 #### [facility] [address] [place] [address] Dr. Maury Bradley Methodology: Comment [facility] Comment on above: Result Comment: This liquid based ThinPrep(R) pap test was screened with the use of an image guided system. Performed By: #### 4 [id number] #### [facility] [address] [place] [address] Dr. Maury Bradley Note: Comment [facility] Comment on above: Result Comment: The Pap smear is a screening test designed to aid in the detection of premalignant and malignant conditions of the uterine cervix. It is not a diagnostic procedure and should not be used as the sole means of detecting cervical cancer. Both false-positive and false-negative reports do occur. . Performed By: #### 4 647089 #### [facility] [address] [place] [address] Dr. Maury Bradley Performed by: Comment Normal [facility] Comment on above: Result Comment: Jose Daniel Tracey, Scientific Informatics Leader (ASCP) Performed By: #### 4 154916 #### [facility] [address] [place] [address] Dr. Maury Bradley Reflex Criteria: Comment [facility] Comment on above: Result Comment: The HPV DNA reflex criteria were not met with this specimen result therefore, no HPV testing was performed. . Performed By: #### 4 716917 #### [facility] [address] [place] [address] Dr. Maury Bradley Specimen adequacy: Comment Normal [facility] Comment on above: Result Comment: Sati sfactory for evaluation. Endocervical and/or squamous metaplastic cells (endocervical component) are present. Performed By: #### 4 [id number] #### [facility] [address] [place] [address] Dr. Maury Bradley Vital Signs Date Time Vital Sign Value Performing Clinician Facility 04-17-2024 15:40-0400 Body height 160.02 cm SEMI CONDUCTOR ASSEMBLERPao Del Rioereleni Work Phone: [facility] 04-17-2024 15:40-0400 Body mass index (BMI) [Ratio] 32.8 kg/m2 SEMI CONDUCTOR ASSEMBLER Shawna Eastereleni Work Phone: 1([phone] [place] [address] 04-17-2024 15:40-0400 Body temperature 97.2 [degF] SEMI CONDUCTOR ASSEMBLER Shawna Eastereleni Work Phone: [phone] [place] [address] 04-17-2024 15:40-0400 Body weight 83.91 kg SEMI CONDUCTOR ASSEMBLER Shawna Eastereleni Work Phone: 8(678)[phone] [place] [address] 04-17-2024 15:40-0400 Diastolic blood pressure 76 mm[Hg] SEMI CONDUCTOR ASSEMBLER Shawna Easterpablo Work Phone: [phone])[phone] [place] [address] 04-17-2024 15:40-0400 Heart rate 90 /min SEMI CONDUCTOR ASSEMBLER Shawna Del Rioerpablo Work Phone: [facility] 04-17-2024 15:40-0400 Respiratory rate 20 /min SEMI CONDUCTOR ASSEMBLER Shawna Del Rioereleni Work Phone: [facility] 04-17-2024 15:40-0400 SaO2% (BldA) [Mass fraction] 98 % SEMI CONDUCTOR ASSEMBLER Shawna Easterwood Work Phone: [facility] 04-17-2024 15:40-0400 Systolic blood pressure 120 mm[Hg] SEMI CONDUCTOR ASSEMBLER Shawna Easterwood Work Phone: [facility] 04-05-2024 09:30-0400 Blood Pressure Location Juliana Barton [facility] 04-05-2024 09:30-0400 Diastolic blood pressure 72 mm[Hg] Juliana Barton [facility] 04-05-2024 09:30-0400 Heart rate 78 /min Juliana Srsimeon [facility] 04-05-2024 09:30-0400 Systolic blood pressure 105 mm[Hg] Juliana Barton [facility] 03-19-2024 14:51-0400 Body height 160.02 cm [facility] 03-19-2024 14:51-0400 Body mass index (BMI) [Ratio] 33.5 kg/m2 [facility] 03-19-2024 14:51-0400 Body temperature 98.1 [degF] [facility] 03-19-2024 14:51-0400 Body weight 85.72 kg [facility] 03-19-2024 14:51-0400 Diastolic blood pressure 72 mm[Hg] [facility] 03-19-2024 14:51-0400 Heart rate 64 /min [facility] 03-19-2024 14:51-0400 Respiratory rate 20 /min [facility] 03-19-2024 14:51-0400 SaO2% (BldA) [Mass fraction] 97 % [facility] 03-19-2024 14:51-0400 Systolic blood pressure 118 mm[Hg] [facility] 03-13-2024 15:49-0400 Body height 160.02 cm [facility] 03-13-2024 15:49-0400 Body mass index (BMI) [Ratio] 33.3 kg/m2 [facility] 03-13-2024 15:49-0400 Body temperature 98.2 [degF] [facility] 03-13-2024 15:49-0400 Body weight 85.27 kg [facility] 03-13-2024 15:49-0400 Diastolic blood pressure 80 mm[Hg] [facility] 03-13-2024 15:49-0400 Heart rate 81 /min [facility] 03-13-2024 15:49-0400 Respiratory rate 20 /min [facility] 03-13-2024 15:49-0400 SaO2% (BldA) [Mass fraction] 97 % [facility] 03-13-2024 15:49-0400 Systolic blood pressure 118 mm[Hg] [facility] 01-10-2024 13:25-0400 Blood Pressure Location [facility] 01-10-2024 13:25-0400 Diastolic blood pressure 80 mm[Hg] [employer] [employer] [facility] 01-10-2024 13:25-0400 Heart rate 78 /min [employer] [employer] [facility] 01-10-2024 13:25-0400 Respiratory rate 18 /min [facility] 01-10-2024 13:25-0400 Systolic blood pressure 124 mm[Hg] [employer] [facility] 12-28-2023 15:03-0400 Heart rate 68 /min [facility] 12-28-2023 14:30-0400 Diastolic blood pressure 72 mm[Hg] [facility] 12-28-2023 14:30-0400 Heart rate 68 /min [facility] 12-28-2023 14:30-0400 Mean blood pressure 90 mm[Hg] [facility] 12-28-2023 14:30-0400 Respiratory rate 18 /min [facility] 12-28-2023 14:30-0400 SaO2% (BldA) [Mass fraction] 97 % [facility] 12-28-2023 14:30-0400 Systolic blood pressure 125 mm[Hg] [facility] 12-28-2023 13:30-0400 Diastolic blood pressure 78 mm[Hg] [facility] 12-28-2023 13:30-0400 Mean blood pressure 94 mm[Hg] [facility] 12-28-2023 13:30-0400 Respiratory rate 18 /min [facility] 12-28-2023 13:30-0400 SaO2% (BldA) [Mass fraction] 98 % [facility] 12-28-2023 13:30-0400 Systolic blood pressure 125 mm[Hg] [facility] 12-28-2023 12:40-0400 Diastolic blood pressure 75 mm[Hg] [facility] 12-28-2023 12:40-0400 Heart rate 89 /min [facility] 12-28-2023 12:40-0400 Mean blood pressure 94 mm[Hg] [facility] 12-28-2023 12:40-0400 Respiratory rate 20 /min [facility] 12-28-2023 12:40-0400 Systolic blood pressure 133 mm[Hg] [facility] 12-28-2023 10:47-0400 Body temperature 98.42 [degF] [facility] 12-28-2023 10:47-0400 Heart rate 95 /min [facility] 11-29-2023 13:03-0400 Body height 160.02 cm [facility] 11-29-2023 13:03-0400 Body mass index (BMI) [Ratio] 32.2 kg/m2 [facility] 11-29-2023 13:03-0400 Body temperature 99.1 [degF] [facility] 11-29-2023 13:03-0400 Body weight 82.55 kg [facility] 05-28-2024 13:03-0400 Diastolic blood pressure 80 mm[Hg] [facility] 11-29-2023 13:03-0400 Heart rate 89 /min [facility] 11-29-2023 13:03-0400 Respiratory rate 20 /min [facility] 11-29-2023 13:03-0400 SaO2% (BldA) [Mass fraction] 97 % [facility] 11-29-2023 13:03-0400 Systolic blood pressure 122 mm[Hg] [facility] 03-01-2023 08:45-0400 Body height 160.02 cm Shawna Easterwood Other [facility] Other 03-01-2023 08:45-0400 Body mass index (BMI) [Ratio] 31.35 kg/m2 Shawna Easterwood Other [facility] Other 03-01-2023 08:45-0400 Body temperature 97.2 [degF] Shawna Easterwood Other [facility] Other 03-01-2023 08:45-0400 Body weight 80.29 kg Shawna Easterwood Other [facility] Other 03-01-2023 08:45-0400 Diastolic blood pressure 72 mm[Hg] Shawna Easterwood Other [facility] Other 03-01-2023 08:45-0400 Respiratory rate 20 /min Shawna Easterwood Other [facility] Other 03-01-2023 08:45-0400 SaO2% (BldA) [Mass fraction] 99 % Shawna Easterwood Other [facility] Other 03-01-2023 08:45-0400 Systolic blood pressure 118 mm[Hg] Shawna Easterwood Other [facility] Other 02-10-2023 03:15-0400 Diastolic blood pressure 81 mm[Hg] Shivam Antonio [facility] 02-10-2023 03:15-0400 Heart rate 67 /min Shivam Antonio [facility] 02-10-2023 03:15-0400 Mean blood pressure 93 mm[Hg] Shivam Antonio [facility] 02-10-2023 03:15-0400 Respiratory rate 17 /min Shivam Antonio [facility] 02-10-2023 03:15-0400 SaO2% (BldA) [Mass fraction] 96 % Shivam Antonio [facility] 02-10-2023 03:15-0400 Systolic blood pressure 118 mm[Hg] Shivam Antonio [facility] 02-10-2023 02:25-0400 Diastolic blood pressure 85 mm[Hg] Shivam Antonio [facility] 02-10-2023 02:25-0400 Heart rate 97 /min Shivam Antonio [facility] 02-10-2023 02:25-0400 Mean blood pressure 98 mm[Hg] Shivam Antonio [facility] 02-10-2023 02:25-0400 Respiratory rate 18 /min Shivam Antonio [facility] 02-10-2023 02:25-0400 SaO2% (BldA) [Mass fraction] 99 % Shivam Antonio [facility] 02-10-2023 02:25-0400 Systolic blood pressure 123 mm[Hg] Shivam Antonio [facility] 02-10-2023 01:55-0400 Diastolic blood pressure 78 mm[Hg] Shivam Alvarez [facility] 02-10-2023 01:55-0400 Heart rate 79 /min Shivam Alvarez [facility] 02-10-2023 01:55-0400 Mean blood pressure 90 mm[Hg] Shivam Alvarez [facility] 02-10-2023 01:55-0400 Respiratory rate 19 /min Shivam Alvarez [facility] 02-10-2023 01:55-0400 SaO2% (BldA) [Mass fraction] 98 % Shivam Alvarez [facility] 02-10-2023 01:55-0400 Systolic blood pressure 113 mm[Hg] Shivam Alvarez [facility] 02-10-2023 01:21-0400 Body temperature 98.96 [degF] Shivam Alvarez [facility] 02-10-2023 01:21-0400 Heart rate 88 /min Shivam Alvarez [facility] 12-28-2021 11:30-0400 Body height 160.02 cm [facility] Other [facility] Other 12-28-2021 11:30-0400 Body mass index (BMI) [Ratio] 28.87 kg/m2 [employer] Other [facility] Other 12-28-2021 11:30-0400 Body temperature 98.4 [degF] [employer] Other [facility] Other 12-28-2021 11:30-0400 Body weight 73.94 kg Shawna De Jesus Other [facility] Other 12-28-2021 11:30-0400 Diastolic blood pressure 82 mm[Hg] Shawna De Jesus Other [facility] Other 12-28-2021 11:30-0400 Respiratory rate 20 /min Shawna De Jesus Other [facility] Other 12-28-2021 11:30-0400 SaO2% (BldA) [Mass fraction] 99 % Shawna De Jesus Other [facility] Other 12-28-2021 11:30-0400 Systolic blood pressure 120 mm[Hg] Shawna De Jesus Other [facility] Other Encounters Encounter Date Encounter Type Care Provider Facility Start: 04-21-2024 End: 04-21-2024 Patient encounter procedure SHAWNA DE JESUS [facility] Start: 04-17-2024 End: 04-17-2024 ambulatory SEMI CONDUCTOR ASSEMBLER Shawna De Jesus Work Phone: [facility] Work Phone: Start: 04-17-2024 End: 04-17-2024 Patient encounter procedure SEMI CONDUCTOR ASSEMBLER Shawna De Jesus Work Phone: [facility] [place] Work Phone: Start: 04-10-2024 ambulatory Lev LACKEY Facility :[facility] [place] Start: 04-06-2024 ambulatory Jesica Mccabe Facility :[facility] Start: 04-05-2024 End: 04-05-2024 ambulatory Juliana Barton [facility] Start: 04-05-2024 End: 04-05-2024 Patient encounter procedure Juliana Barton [facility] Start: 03-26-2024 End: 03-26-2024 Patient encounter procedure YOVANI De Jesus Work Phone: [facility] Work Phone: Start: 03-26-2024 End: 03-26-2024 ambulatory SEMI CONDUCTOR ASSEMBLER [facility]: [facility] Work Phone: Start: 03-23-2024 [facility] Start: 03-20-2024 End: 03-21-2024 Emergency department patient visit DO Jesica Mccabe Facility:[facility] Start: 03-19-2024 End: 03-19-2024 ambulatory [facility] Work Phone: Start: 03-19-2024 End: 03-19-2024 Patient encounter procedure [facility] Work Phone: Start: 03-14-2024 Non-patient / Non-visit [facility] Work Phone: Start: 03-14-2024 End: 03-14-2024 ambulatory VETERINARY MILK SPECIALIST SHAWNA DE JESUS Facility:[facility] Start: 03-14-2024 End: 03-14-2024 Patient encounter procedure SHAWNA DE JESUS [facility] Start: 03-13-2024 End: 03-13-2024 ambulatory [facility] Work Phone: Start: 03-13-2024 End: 03-13-2024 Patient encounter procedure [facility] Work Phone: Start: 01-10-2024 End: 01-10-2024 ambulatory Juliana Barton Facility:[facility] Start: 01-10-2024 End: 01-10-2024 Patient encounter procedure Juliana Barton [facility] Start: 12-30-2023 End: 12-30-2023 ambulatory VETERINARY MILK SPECIALIST RICH Hien GALEASMAYRA Facility:[facility] Tiffany le Start: 12-28-2023 End: 12-28-2023 Emergency department patient visit Mamta Us [facility] Start: 12-28-2023 End: 12-28-2023 Patient encounter procedure TAYA BALDERRAMA [facility] Start: 12-28-2023 End: 12-28-2023 ambulatory TAYA BALDERRAMA Facility: [place] Start: 11-29-2023 End: 11-29-2023 ambulatory [facility] Work Phone: Start: 11-29-2023 End: 11-29-2023 Patient encounter procedure [facility] Work Phone: Start: 10-26-2023 End: 10-26-2023 ambulatory SIXTO Sonia ORELLANA Not Available Start: 04-06-2023 End: 04-06-2023 ambulatory Shawna De Jesus Other [facility] Other Start: 04-06-2023 [facility] Start: 03-01-2023 End: 03-01-2023 ambulatory Shawna Verawood Other [facility] Other Start: 03-01-2023 Office outpatient vi sit 25 [facility] Start: 03-01-[facility]23 [facility] Start: 02-10-2023 End: 02-10-2023 Emergency department patient visit Shivam Alvarez [facility] Start: 12-28-2021 End: 12-28-2021 ambulatory Shawnahien De Jesus Other [facility] Other Start: 12-28-2021 Encounter for genera l adult medical [facility] Start: 12-28-2021 Initial preventive medicine new pt age 18-39yrs [facility] Start: 09-14-2021 End: 09-14-[address] ESTHER ALLISON Facility:[facility] Procedures Date Procedure Procedure Detail Performing Clinician Start: 03-26-2024 Bacteria identified in Urine by Culture YOVANI [facility] Work Phone: Start: 03-26-2024 [facility] Start: 03-14-2024 C Urine Start: 07-04-1998 Tonsillectomy and adenoidectomy Shivam Alvarez History of tonsillectomy History of tonsillectomy and adenoidectomy Plan of Treatment Date Care Activity Detail Author Start: 03-26-2024 Bacteria identified in Urine by Culture [facility] Bacteria identified in Urine by Culture [facility] Bacteria identified in Urine by Culture [facility] Cefuroxime free [Mass/volume] in Serum or Plasma [facility] Patient Education Low back pain in adults [facility] Work Phone: Rheumatoid factor [Units/volume] in Serum or Plasma [facility] Thiamine [Moles/volu me] in Blood [facility] Urine culture [facility] XR Lumbar spine Views [facility] Immunizations Immunization Date Immunization Notes Care Provider Fa cility NEGATED: Highlighted row has not occurred! 4 influenza, injectable, quadrivalent, preservative free Patient Objection Shawna De Jesus Other [employer] Other Payers Date Payer Category Payer Self-pay [id number] 2023 Unknown 2017 Medicaid [id number] 2014 Medicaid [id number] 1994 Unknown [id number] 93 1994 Unknown [id number] [id number] 259 1994 Unknown [id number] 2.16.840.1.505984.3.579.2.1 259 1994 Unknown [id number] 2.16.840.1.043069.3.579.2.7 27 1994 Unknown [id number] 2.16.840.1.203938.3.579.2.7 27 1994 Unknown [id number] 2.16.840.1.221689.3.579.2.7 27 1994 Unknown [id number] 2.16.840.1.647100.3.579.2.7 27 1994 Unknown [id number] 2.16.840.1.621211.3.579.2.7 27 1994 Unknown [id number] 2.16.840.1.748057.3.579.2.7 27 1994 Unknown [id number] 2.16.840.1.304934.3.579.2.7 27 1994 Unknown [id number] 2.16.840.1.918804.3.579.2.7 27 1994 Unknown [id number] 2.16.840.1.197139.3.579.2.7 1994 Unknown [id number] 2.16.840.1.826538.3.579.2.7 1994 Unknown [id number] 2.16.840.1.375128.3.579.2.7 1994 Unknown [id number] 2.16.840.1.263025.3.579.2.7 1959 Unknown [id number] Unknown [id number] 2.16.840.1.105170.3.579.2.5 31 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 Start: 1995 Sex Assigned At Female F [facility] Functional Status Date Assessment Result Facility 04-05-2024 Functional Status N/A [facility] 01-10-2024 Functional Status N/A [facility] 12-28-2023 Functional Status N/A [facility] 02-10-2023 Functional Status N/A [facility] Clinical Notes 12-28-2021 to 03-21-2024 Note Date & Type Note Facility 03-21-2024 Evaluation note Authored March 21, 2024 4:47pm Before the locking of this p rogress note, patient calls back to states she is nervous about the right sided pain that has been going on over a year. She is also very nervous about her lab work and has not yet heard from central scheduling. The order was only placed 1 day ago. Patient then reports to ER. CT of the abdomen and pelvis, chest x-ray and all labs are essentially normal. They did put a referral in for urology however we will also place a formal referral as I do not want this to get lost from her. She calls with symptoms over significant lab abnormalities however there is none. Emotional support provided to patient per the staff. I also did explain that she is not in renal failure. I would recommend she follow through with renal ultrasound and follow-up with urology. Author Shawna De Jesus [facility] Authored March 16, 2024 10:46am *Progress note was completed with the assistance of voice recognition software for dictation purposes. Please excuse any grammatical errors that were not corrected during review process. [facility] Work Phone: 1(987) 963-284609-18-2024 NoteED Patient Education Note Gastroenterology Nausea, Adult Nausea is feeling like you may vomit. Feeling like you may vomit is usually not serious, but it maybe an early sign of a more serious medical problem. Vomiting is when stomach contents forcefully come out of your mouth. If you vomit, or if you are not able to drink enough fluids, you may not have enough water in your body (get dehydrated). If you do not have enough water in your body, you may: ? Feel tired. ? Feel thirsty. ? Have a dry mouth. ? Have cracked lips. ? Pee (urinate) less often. Older adults and people who have other diseases or a weak body defense system (immune system) have a higher risk of not having enough water in the body. The main goals of treating this condition are: ? To relieve your nausea. ? To ensure your nausea occurs less often. ? To prevent vomiting and losing too much fluid. Follow these instructions at home: Watch your symptoms for any changes. Tell your doctor about them. Eating and drinking ? Take an ORS (oral rehydration solution). This is a drink that is sold at pharmacies and stores. ? Drink clear fluids in small amounts as you are able. These include: ? Water. ? Ice chips. ? Fruit juice that has water added (diluted fruit juice). ? Low-calorie sports drinks. ? Eat bland, myqm-ib-kmbtzz foods in small amounts as you are able, such as: ? Bananas. ? Applesauce. ? Rice. ? Low-fat (lean) meats. ? [place]. ? Crackers. ? Avoid drinking fluids that have a lot of sugar or caffeine in them. This includes energy drinks, sports drinks, and soda. ? Avoid alcohol. ? Avoid spicy or fatty foods. General instructions ? Take hgym-iab-teanudw and prescription medicines only as told by your doctor. ? Rest at home while you get better. ? Drink enough fluid to keep your pee (urine) pale yellow. ? Take slow and deep breaths when you feel like you may vomit. ? Avoid food or things that have strong smells. ? Wash your hands often with soap and water for at least 20 seconds. If you cannot use soap and water, use hand social media sr strategy manager. ? Make sure that everyone in your home washes their hands well and often. ? Keep all follow-up visits. Contact a doctor if: ? You feel worse. ? You feel like you may vomit and this lasts for more than 2 days. ? You vomit. ? You are not able to drink fluids without vomiting. ? You have new symptoms. ? You have a fever. ? You have a headache. ? You have muscle cramps. ? You have a rash. ? You have pain while peeing. ? You feel light-headed or dizzy. Get help right away if: ? You have pain in your chest, neck, arm, or jaw. ? You feel very weak or you faint. ? You have vomit that is bright red or looks like coffee grounds. ? You have bloody or black poop (stools) or poop that looks like tar. ? You have a very bad headache, a stiff neck, or both. ? You have very bad pain, cramping, or bloating in your belly (abdomen). ? You have trouble breathing or you are breathing very quickly. ? Your heart is beating very quickly. ? Your skin feels cold and clammy. ? You feel confused. ? You have signs of losing too much water in your body, such as: ? Dark pee, very little pee, or no pee. ? Cracked lips. ? Dry mouth. ? Sunken eyes. ? Sleepiness. ? Weakness. These symptoms may be an emergency. Get help right away. Call 911. ? Do not wait to see if the symptoms will go away. ? Do not drive yourself to the hospital. Summary ? Nausea is feeling like you are about vomit. ? If you vomit, or if you are not able to drink enough fluids, you may not have enough water in your body (get dehydrated). ? Eat and drink what your doctor tells you. Take lvkq-ktg-gkvespw and prescription medicines only as told by your doctor. ? Contact a doctor right away if your symptoms get worse or you have new symptoms. ? Keep all follow-up visits. This information is not intended to replace advice given to you by your health care provider. Make sure you discuss any questions you have with your health care provider. Document Revised: 12/25/2021 Document Reviewed: 12/25/2021 [employer] My Items Patient Education ? 2023 A2B. Orthopedics Pain Without a Known Cause Pain can occur in any part of the body and can range from mild to severe. Sometimes no cause can befound for pain. Some common types of pain that can occur without a known cause include: ? Headache. ? Back pain. ? Abdominal pain. ? Neck pain. Your health care provider may do tests to try to find the cause of your pain. If no cause is found,your health care provider will treat you for pain without a known cause. In some cases, your health care provider may do more tests, repeat tests that have already been done, and look further for a possible cause. Follow these instructions at home: Medicines ? Take ghco-gql-xnatwat and prescription medicines only as (more content not included)...[facility]09-13-2024 Evaluation note* Author Shawna De Jesus [facility] Authored March 16, 2024 10:46am *Progress note was completed with the assistance of voice recognition software for dictation purposes. Please excuse any grammatical errors that were not corrected during review process. [facility] Work Phone: 1(857) 150-734406-26-2024 Hospital Discharge instructions Patient Education 12/28/2023 15:06:07 Nausea, Adult, Mtyo-jv-Ymhi Nausea, Adult Nausea is feeling like you may vomit. Feeling like you may vomit is usually not serious, but it maybe an early sign of a more serious medical problem. Vomiting is when stomach contents forcefully come out of your mouth. If you vomit, or if you are not able to drink enough fluids, you may not have enough water in your body (get dehydrated). If you do not have enough water in your body, you may: Feel tired. Feel thirsty. Have a dry mouth. Have cracked lips. Pee (urinate) less often. Older adults and people who have other diseases or a weak body defense system (immune system) have a higher risk of not having enough water in the body. The main goals of treating this condition are: To relieve your nausea. To ensure your nausea occurs less often. To prevent vomiting and losing too much fluid. Follow these instructions at home: Watch your symptoms for any changes. Tell your doctor about them. Eating and drinking Take an ORS (oral rehydration solution). This is a drink that is sold at pharmacies and stores. Drink clear fluids in small amounts as you are able. These include: ?Water. ?Ice chips. ?Fruit juice that has water added (diluted fruit juice). ?Low-calorie sports drinks. Eat bland, mqyz-vv-dfcyke foods in small amounts as you are able, such as: ?Bananas. ?Applesauce. ?Rice. ?Low-fat (lean) meats. ?[place]. ?Crackers. Avoid drinking fluids that have a lot of sugar or caffeine in them. This includes energy drinks, sports drinks, and soda. Avoid alcohol. Avoid spicy or fatty foods. General instructions Take yvwu-ypw-vwzhgob and prescription medicines only as told by your doctor. Rest at home while you get better. Drink enough fluid to keep your pee (urine) pale yellow. Take slow and deep breaths when you feel like you may vomit. Avoid food or things that have strong smells. Wash your hands often with soap and water for at least 20 seconds. If you cannot use soap and water, use hand social media sr strategy manager. Make sure that everyone in your home washes their hands well and often. Keep all follow-up visits. Contact a doctor if: You feel worse. You feel like you may vomit and this lasts for more than 2 days. You vomit. You are not able to drink fluids without vomiting. You have new symptoms. You have a fever. You have a headache. You have muscle cramps. You have a rash. You have pain while peeing. You feel light-headed or dizzy. Get help right away if: You have pain in your chest, neck, arm, or jaw. You feel very weak or you faint. You have vomit that is bright red or looks like coffee grounds. You have bloody or black poop (stools) or poop that looks like tar. You have a very bad headache, a stiff neck, or both. You have very bad pain, cramping, or bloating in your belly (abdomen). You have trouble breathing or you are breathing very quickly. Your heart is beating very quickly. Your skin feels cold and clammy. You feel confused. You have signs of losing too much water in your body, such as: ?Dark pee, very little pee, or no pee. ?Cracked lips. ?Dry mouth. ?Sunken eyes. ?Sleepiness. ?Weakness. These symptoms may be an emergency. Get help right away. Call 911. Do not wait to see if the symptoms will go away. Do not drive yourself to the hospital. Summary Nausea is feeling like you are about vomit. If you vomit, or if you are not able to drink enough fluids, you may not have enough water in your body (get dehydrated). Eat and drink what your doctor tells you. Take nkpp-drf-cbvbasb and prescription medicines only as told by your doctor. Contact a doctor right away if your symptoms get worse or you have new symptoms. Keep all follow-up visits. This information is not intended to replace advice given to you by your health care provider. Make sure you discuss any questions you have with your health care provider. Document Revised: 12/25/2021 Document Reviewed: 12/25/2021 [employer] Patient Education 2022 A2B. 12/28/2023 15:06:07 Abdominal Pain, Adult Abdominal Pain, Adult Pain in the abdomen (abdominal pain) can be caused by many things. Often, abdominal pain is not serious and it gets better with no treatment or by being treated at home. However, sometimes abdominal pain is serious. Your health care provider will ask questions about your medical history and do a physical exam to try to determine the cause of your abdominal pain. Follow these instructions at home: Medicines Take yqpv-cud-iuevwsj and prescription medicines only as told by your health care provider. Do not take a laxative unless told by your health care provider. General instructions Watch your condition for any changes. Drink enough fluid to keep your urine pale yellow. Keep all follow-up visits as told by your health care provider. This is important. Contact a health care provider if: Your abdominal pain changes or gets worse. You are not hungry or you lose weight without trying. You are constipated or have diarrhea for more than 2 3 days. You have pain when you urinate or have a bowel movement. Your abdominal pain wakes you up at night. Your pain gets worse with meals, after eating, or with certain foods. You are vomiting and cannot keep anything down. You have a fever. You have blood in your urine. Get help right away if: Your pain does not go away as soon as your health care provider told you to expect. You cannot stop vomiting. Your pain is only in areas of the abdomen, such as the right side or the left lower portion of the abdomen. Pain on the right side could be caused by appendicitis. You have bloody or black stools, or stools that look like tar. You have severe pain, cramping, or bloating in your abdomen. You have signs of dehydration, such as: ?Dark urine, very little urine, or no urine. ?Cracked lips. ?Dry mouth. ?Sunken eyes. ?Sleepiness. ?Weakness. You have trouble breathing or chest pain. Summary Often, abdominal pain is not serious and it gets better with no treatment or by being treated at home. However, sometimes abdominal pain is serious. Watch your condition for any changes. Take ssim-yjt-dgirsxe and prescription medicines only as told by your health care provider. Contact a health care provider if your abdominal pain changes or gets worse. Get help right away if you have severe pain, cramping, or bloating in your abdomen. This information is not intended to replace advice given to you by your health care provider. Make sure you discuss any questions you have with your health care provider. Document Revised: 08/08/2020 Document Reviewed: 10/29/2019 [employer] Patient Education 2022 A2B. Follow Up Care 12/28/2023 10:37:02 With:Juliana Barton Address: [address], [address] [place] [address] [phone] Business (1) When:12/31/2023 14:48:18 Comments:Call Dr for diagnosis based follow up With:SHAWNA DE JESUS Address: [address] [address] [phone] Business (1) When:12/31/2023 14:47:44 Comments:Call Dr for diagnosis based follow up [facility]06-26-2024 Evaluation + Plan noteExtracted from: Title:ED Note Author:Fredi WEBB, Jose Navas te:12/28/23 Diarrhea (R19.7: Diarrhea, u nspecified) Nausea (R11.0: Nausea) Pain in the abdomen (R10.9: Unspecified abdominal pain) Orders: dicyclomine, 10 mg = 1 cap(s), Oral, QID, X 7 day(s), # 28 cap(s), Refills(s) 0, Pharmacy: [facility] #[id number], 160, cm, 12/28/23 10:54:00 EDT, Height/Length Dosing, 81.7, kg, 12/28/23 10:54:00 EDT, Weight Dosing ketorolac, 30 mg = 1 mL, Injection, IV Push, Once, Stop date 12/28/23 12:53:00 EDT, STAT, Start date 12/28/23 12:53:00 EDT, 12/28/23 12:53:00 EDT ondansetron, 4 mg = 1 tab(s), Oral, q8hr, PRN Nausea/Vomiting, # 20 tab(s), Refills(s) 0, Pharmacy: [facility] #[id number], 160, cm, 12/28/23 10:54:00 EDT, Height/Length Dosing, 81.7, kg, 12/28/23 10:54:00 EDT, Weight Dosing ondansetron, 4 mg = 2 mL, Injection, IV Push, Once, Stop date 12/28/23 12:53:00 EDT, STAT, Start date 12/28/23 12:53:00 EDT, 12/28/23 12:53:00 EDT pantoprazole, 40 mg = 10 mL, Injection, IV Push, Once, Stop date 12/28/23 12:53:00 EDT, STAT, Start date 12/28/23 12:53:00 EDT, 12/28/23 12:53:00 EDT pantoprazole, 40 mg = 1 tab(s), Oral, Daily, # 30 tab(s), Refills(s) 0, Pharmacy: [facility] #[id number], 160, cm, 12/28/23 10:54:00 EDT, Height/Length Dosing, 81.7, kg, 12/28/23 10:54:00 EDT, Weight Dosing Sodium Chloride 0.9% intravenous solution, 1,000 mL, Soln-IV, IV, Once, Stop date 12/28/23 12:53:00 EDT, STAT, Start date 12/28/23 12:53:00 EDT, Infuse over 61, minute(s) sucralfate, 1 gm = 1 tab(s), Oral, QID, X 7 day(s), # 28 tab(s), Refills(s) 0, Pharmacy: [facility] #[id number], 160, cm, 12/28/23 10:54:00 EDT, Height/Length Dosing, 81.7, kg, 12/28/23 10:54:00 EDT, Weight Dosing CT Abdomen/Pelvis w/ Contrast Future Appointments Appointment Date:01/10/2024 01:30:00 PM Scheduled Provider:Oralia BURKS, Juliana Pruett Location:[facility] Appointment Type:[facility]08-29-2023 Evaluation note* Encounter Date Diagnosis Assessment Notes Treatment Notes Treatment Clinical Notes Feb, Chronic idiopathic constipation (ICD-10 - K59.04) Constipation treatment discussed; 1. Increase water intake and dietary fiber daily 2. Probiotics/prebiotic' s daily for maintenance. 3. Stool softeners can be used daily if needed. 4. MiraLAX to be tried acutely, daily, for 3 to 5 days. 5. Some patients require daily miralax, however not recommended content creation manager. 6. If no bowel movement in 5-7 days, magnesium citrate recommended OTC. 7. If nausea/vomiting, severe pain, paleness, diaphoresis, fevers, lethargy or decreased appetite occur, report directly to ER. Feb, Chronic idiopathic constipation (ICD-10 - K59.04) Constipation treatment discussed; 1. Increase water intake and dietary fiber daily 2. Probiotics/prebiotic' s daily for maintenance. 3. Stool softeners can be used daily if needed. 4. MiraLAX to be tried acutely, daily, for 3 to 5 days. 5. Some patients require daily miralax, however not recommended content creation manager. 6. If no bowel movement in 5-7 days, magnesium citrate recommended OTC. 7. If nausea/vomiting, severe pain, paleness, diaphoresis, fevers, lethargy or decreased appetite occur, report directly to ER. Feb, Hemorrhoid (ICD-10 - K64.9) Discussed acute on chronic hemorrhoids. Discussed when further intervention by surgery would be warranted. Discussed conservative measures as well as prescription medications. At this point she will continue conservative measures including the fiber in controlling constipation as treatment. Feb, Hemorrhoid (ICD-10 - K64.9) Discussed acute on chronic hemorrhoids. Discussed when further intervention by surgery would be warranted. Discussed conservative measures as well as prescription medications. At this point she will continue conservative measures including the fiber in controlling constipation as treatment. Feb, Hospital discharge follow-up (ICD-10 - Z09) Hospital admission, diagnostic imaging, labs, medications, diagnoses and discharge plan discussed with patient today in office. Abnormal DI/labs requiring follow-up include: CT abdomen Referrals to specialties include: Does not necessarily require urgent referral to urology at this time. Discussed the possibility of nephrolithiasis given the right sided pain. Continue to monitor closely. Did discuss dietary intake changes to be made as well as increasing fluid to reduce the risk of stone formation. Feb, Other *Progress note was completed with the assistance of voice recognition software for dictation purposes. Please excuse any grammatical errors that were not corrected during review process. [employer] Other 08-10-2023 Evaluation + Plan noteExtracted from: Title:ED Note Author:Shivam Alvarez DO Date: Acute right flank pain (R10. 9: Unspecified abdominal pain) Ordered: oxycodone, 5 mg = 1 cap(s), Oral, q6hr, PRN Pain 8-10, # 4 cap(s), Refills(s) 0, Pharmacy: [facility] #[id number], 160, cm, 02/10/23 1:25:00 EDT, Height/Length Dosing, 81.4, kg, 02/10/23 1:25:00 EDT, Weight Dosing Orders: ketorolac, 15 mg = 1 mL, Injection, IV Push, Once, Stop date 02/10/23 1:46:00 EDT, STAT, Start date 02/10/23 1:46:00 EDT, 02/10/23 1:46:00 EDT naproxen, 500 mg = 1 tab(s), Oral, BID, PRN for pain, # 20 tab(s), Refills(s) 0, Pharmacy: [facility] #[id number], 160, cm, 02/10/23 1:25:00 EDT, Height/Length Dosing, 81.4, kg, 02/10/23 1:25:00 EDT, Weight Dosing ondansetron, 4 mg = 1 tab(s), Oral, q8hr, PRN Nausea/Vomiting, # 12 tab(s), Refills(s) 0, Pharmacy: [facility] #[id number], 160, cm, 02/10/23 1:25:00 EDT, Height/Length Dosing, 81.4, kg, 02/10/23 1:25:00 EDT, Weight Dosing ondansetron, 4 mg = 2 mL, Injection, IV Push, Once, Stop date 02/10/23 1:46:00 EDT, STAT, Start date 02/10/23 1:46:00 EDT, 02/10/23 1:46:00 EDT Automated Diff Basic Metabolic Panel Beta hCG Qual CBC w/ Auto Diff CT Abdomen/Pelvis w/o Contrast eGFR Hepatic Function Panel Lipase Level Saline Lock Insert UA With Cult Reflex Urine Culture Urine Strainer to go Diagnostic Tests Pending * Urine Culture 02/10/23 [facility]08-10-2023 Hospital Discharge instructions Patient Education 02/10/2023 03:09:40 Flank Pain, Adult Flank Pain, Adult Flank pain is pain that is located on the side of the body between the upper abdomen and the spine.This area is called the flank. The pain may occur over a short period of time (acute), or it may belong-term or recurring (chronic). It may be mild or severe. Flank pain can be caused by many things, including: Muscle soreness or injury. Kidney infection, kidney stones, or kidney disease. Stress. A disease of the spine (vertebral disk disease). A lung infection (pneumonia). Fluid around the lungs (pulmonary edema). A skin rash caused by the chickenpox virus (shingles). Tumors that affect the back of the abdomen. Gallbladder disease. Follow these instructions at home: Drink enough fluid to keep your urine pale yellow. Rest as told by your health care provider. Take cnkv-qzg-kyldeiv and prescription medicines only as told by your health care provider. Keep a journal to track what has caused your flank pain and what has made it feel better. Keep all follow-up visits. This is important. Contact a health care provider if: Your pain is not controlled with medicine. You have new symptoms. Your pain gets worse. Your symptoms last longer than 2 3 days. You have trouble urinating or you are urinating very frequently. Get help right away if: You have trouble breathing or you are short of breath. Your abdomen hurts or it is swollen or red. You have nausea or vomiting. You feel faint, or you faint. You have blood in your urine. You have flank pain and a fever. These symptoms may represent a serious problem that is an emergency. Do not wait to see if the symptoms will go away. Get medical help right away. Call your local emergency services (911 in the [place] Do not drive yourself to the hospital. Summary Flank pain is pain that is located on the side of the body between the upper abdomen and the spine. The pain may occur over a short period of time (acute), or it may be long-term or recurring (chronic). It may be mild or severe. Flank pain can be caused by many things. Contact your health care provider if your symptoms get worse or last longer than 2 3 days. This information is not intended to replace advice given to you by your health care provider. Make sure you discuss any questions you have with your health care provider. Document Revised: 08/31/2021 Document Reviewed: 08/31/2021 [employer] Patient Education 2022 A2B. Follow Up Care 02/10/2023 01:19:58 With:Lev LACKEY Address: [address] [address] Business (1) When:02/13/2023 Comments:Strain urine. Take pain medication as prescribed. Follow-up with urology [facility]06-27-2022 Evaluation note* Encounter Date Diagnosis Assessment Notes Treatment Notes Treatment Clinical Notes Dec, Well adult (ICD-10 - Z00.00) We have discussed the necessity of following up with PCP regularly as well as specialists, as needed. Discussed F/U with dentistry and optometry at least yearly. Discussed all preventative measures/ cancer screenings as applicable to this patient. Emphasized the importance of a reduced fat, low carb diet to promote heart health and controlled blood sugars. Reviewed social history and ensured patient is safe within the home today. I have ensured patient is of stable mental and physical health today. We have discussed appropriate F/U schedule as well as blood work and vaccinations that apply. All questions answered and patient is sent home pleased, without concerns. Please call if you want to F/U regarding anxiety management. Emotional and motivational support provided. Briefly discussed chronic med management and referra lto counseling. [employer] Other Evaluation + Plan note Future Appointments Appointment Date:01/10/2024 01:30:00 PM Scheduled Provider:Juliana Barton MD Location:[facility] Appointment Type:[facility] New Patient [facility] Evaluation + Plan note Future Appointments Appointment Date:04/12/2024 08:45:00 AM Scheduled Provider:Juliana Barton MD Location:[facility] Appointment Type:[facility] Follow Up [facility] Evaluation + Plan note Future Appointments Appointment Date:04/12/2024 08:45:00 AM Scheduled Provider:Juliana Barton MD Location:[facility] Appointment Type:[facility] Follow Up Diagnostic Tests Pending * PTH Intact 03/14/24 * Vitamin B1 03/14/24 * Urine Culture 03/14/24 [facility] Evaluation + Plan note Future Appointments Appointment Date:04/26/2024 08:15:00 AM Scheduled Provider:Luis Mckee MD [facility] New Patient (FT) Diagnostic Tests Pending * CARMEN w/Reflex if POS 04/21/24 * Rheumatoid Factor Quantitative 04/21/24 * Lyme Antibodies w/rflx to IgG/IgM 04/21/24 [facility] Evaluation noteNo [facility] EvalYou Other Evaluation noteNo assessment information available [facility] Work Phone: Evaluation note* Diagnosis Onset Date Resolution Status Dysuria acute Low back pain acute [facility] Work Phone: History general Narrative - Reported* Type Description Date Surgical History Tonsillectomy and adenoidectomy 1998 Hospitalization History Childbirth (2) [employer] Other [facility] general Narrative - Reported* Type Description Date Medical History Hemorrhoid Medical History Chronic idiopathic constipation Surgical History Tonsillectomy and adenoidectomy 1998 Hospitalization History Childbirth (2) [employer] Other Hospital course Narrative No data available for this section [facility] No data available for this section [facility] Progress note No data available for this section [facility] Summary Purpose Family History Relationship Condition Age at Onset Recorded Date/T niurka Not Specified Diabetes mellitus Unknown family member Family history of diabetes mellitus Unkn own Family history of ma lignant neoplasm of breast Unknown Relationship Condition Age at Onset Recorded Date/T niurka mother Diabetes mellitus Unknown family member Family history of diabetes mellitus Unkn own Family history of ma lignant neoplasm of breast Unknown Advance Directives Advance Directive Response Recorded Date/ Time Advance Directives No April 11, 2021 10:24pm Advance Directive Response Recorded Date/ Time Advance Directives No April 09, 2024 3:43pm Chief Complaint and Reason for Visit Chief Complaint discuss changes to h er body Chief Complaint dizziness, foot numb ness Reason for Visit Dysuria Low back pain Chief Complaint dizziness, foot numb ness 2 week follow up Reason for Visit Abdominal pain Anxiety about health Chest pain Dysuria Fatigue Low back pain Neuropathic pain Hematuria Chief Complaint dizziness, foot numb ness 2 week follow up R31.9 R80.9 Reason for Visit Abdominal pain Anxiety about health Chest pain Dysuria Fatigue Low back pain Neuropathic pain Abdominal pain Anxiety about health Hematuria Low back pain Neuropathic pain Proteinuria Vaginal itching Vitamin D deficiency Chief Complaint dizziness, foot numb ness 2 week follow up R31.9 R80.9 Follow up - several concerns Reason for Visit Abdominal pain Anxiety about health Chest pain Dysuria Fatigue Low back pain Neuropathic pain Abdominal pain Anxiety about health Hematuria Low back pain Neuropathic pain Proteinuria Vaginal itching Vitamin D deficiency Fatigue Additional Source Comments INFORMATION SOURCE (unrecogn ized section and content) DATE CREATED AUTHOR 09/20/2021 [facility] DATE CREATED AUTHOR AUTHOR'S ORGANIZ ATION 10/27/2023 [facility] DATE CREATED AUTHOR AUTHOR'S ORGANIZ ATION 12/29/2023 [facility] DATE CREATED AUTHOR AUTHOR'S ORGANIZ ATION 01/01/2024 [facility] DATE CREATED AUTHOR AUTHOR'S ORGANIZ ATION 03/16/2024 [facility] DATE CREATED AUTHOR AUTHOR'S ORGANIZ ATION 03/17/2024 [facility] DATE CREATED AUTHOR AUTHOR'S ORGANIZ ATION 03/18/2024 [facility] DATE CREATED AUTHOR AUTHOR'S ORGANIZ ATION 03/22/2024 [facility] DATE CREATED AUTHOR AUTHOR'S ORGANIZ ATION 03/23/2024 [facility] DATE CREATED AUTHOR AUTHOR'S ORGANIZ ATION 03/30/2024 [facility] DATE CREATED AUTHOR AUTHOR'S ORGANIZ ATION 04/06/2024 [facility] DATE CREATED AUTHOR AUTHOR'S ORGANIZ ATION 04/08/2024 [facility] REASON FOR VISIT (unrecogniz ed section and content) Establish Care, New patient, OBGYN - Dr. Allison, Has not had PCP since childhoodER F/UConstipation concerns, [facility] ER follow up 02/10 - right flank painMissed Calls Care Teams (unrecognized sec tion and content) Personnel Name: SHAWNA DE JESUS CNP Address: Address: [address] [place] [id number] Team Status: Active Member Role Status Dates Shawna De Jesus APRN Primary Care Provider Active Team Status: Inactive Member Role Status Dates Shawna De Jesus APRN Primary Care Pr sarah, Attending Provider Active Start: November 29, 2023 End: November 29, 2023 Goals (unrecognized section and content) Goals may be documented in a n alternate section FOR RECORDS PERTAINING TO PATIENTS WHO ARE OR HAVE BEEN ENROLLED IN A CHEMICAL DEPENDENCY/SUBSTANCEABUSE PROGRAM, SOME INFORMATION MAY BE OMITTED. This clinical summary was aggregated from multiple sources. Caution should be exercised in using it in the provision of clinical care. This summary normalizes information from multiple sources, and as a consequence, information in this document may materially change the coding, format and clinical context of patient data. In addition, data may be omitted in some cases. CLINICAL DECISIONS SHOULD BE BASED ON THE PRIMARY CLINICAL RECORDS. [facility]. provides no warranty or guarantee of the accuracy or completeness of information in this document.
--- NOTE | 2024-04-23 12:11 | ECG_ITS ---
[facility] Test Date: 2024-04-23 Pat Name: SUZANNE DAI Department: Room: - Gender: Female [employer]: : 1995 Requested By: Order Number: [id number] Reading MD: ALVARADO WARE Measurements Intervals [place] Rate: 79 P: 32 DE: 138 QRS: 42 QRSD: 90 T: 24 QT: 366 QTc: 400 Interpretive Statements 1100 Sinus rhythm 9110 normal ECG Compared to ECG 11/25/2023 15:18:39 Sinus tachycardia no longer present ST (T wave) deviation no longer present Electronically Signed On 04-23-2024 22:06:50 EDT by ALVARADO WARE
--- NOTE | 2024-04-23 12:17 | ED_ITS ---
HPI HPI - General Adult General Chief complaint: Chest Pain Stated complaint: CHEST PAIN/ EXTREMITY WEAKNESS Time Seen by Provider: 04/23/24 12:16 Source: patient Mode of arrival: walk-in History of Present Illness HPI narrative: Patient is a 29-year-old female who is presenting to the ER today with chief complaint of 6 to 7 days of midsternal chest pain. Patient is having left midsternal chest pain that does not radiate into her neck, jaw, or back, shoulders or arms. This has been going on for approximate 7 days. Patient does have a history anxiety. Patient's anxiety has been getting worse with this karrie n. Patient has an IUD, she does not take control tablets. Patient is a non-smoker. No recent traveling. No recent surgery. Patient patient has no abdominal pain, nausea, vomiting, no other acute complaints. All systems are negative except as noted/marked. All systems reviewed and otherwise negative. Nurses note and vital signs reviewed and patient is not hypoxic. General: The patient appears well and in no apparent distress. Patient is resting comfortably on cart. Patient is not toxic, lethargic, or listless Skin: Warm, dry, no pallor noted. There is no rash noted. No petechiae, purpura Head: Normocephalic, atraumatic Eye: Normal conjunctiva, no drainage, EOMI. PERRL Ears, Nose, Mouth, and Throat: oral mucosa is moist. Nares patent. Mouth without vesicles. Cardiovascular: Regular Rate and Rhythm, no murmur, gallop, rub. Patient has reproducible tenderness to palpation to the left anterior chest wall, patient feels the pain is above her left anterior chest wall, no crepitus. No rash. No pain to deep palpation to the left posterior chest wall that is reproducible to the left lateral or left anterior chest wall. Respiratory: Patient is in no distress, no accessory muscle use, lungs are clear to auscultation, no wheezing, rales or rhonchi Back: non-tender, no CVA tenderness bilaterally to percussion. No CT LS midline pain GI: no tenderness to palpation, no masses appreciated. No rebound, guarding, or rigidity noted. No distention. No midepigastric tenderness to palpation Musculoskeletal: Patient has full range of motion of all of the extremities, no motor, sensory, or focal neurological deficits Neurological: A&O x4, normal speech Psychiatric: Cooperative Related Data Previous Rx's ?Medication ?Instructions ?Recorded alprazolam 0.5 mg tablet (Xanax) 0.5 mg PO TID PRN anxiety #14 tabs 11/25/23 Allergies Allergy/AdvReac Type Severity Reaction Status Date / Time amoxicillin (From Augmentin) Allergy Mild Rash Verified 11/25/23 15:21 clavulanic acid (From Allergy Mild Rash Verified 11/25/23 15:21 Augmentin) Sulfa (Sulfonamide Allergy Mild Rash Verified 11/25/23 15:21 Antibiotics) sulfamethoxazole (From Allergy Mild Rash Verified 11/25/23 15:21 Bactrim) trimethoprim (From Bactrim) Allergy Mild Rash Verified 11/25/23 15:21 Opioid HPI Opioid Management Most Recent Opioid Data: No Data to Display Exam Constitutional Vital Signs, click to edit/add: Last Vital Signs Temp 98.6 F 04/23/24 11:57 Pulse 79 04/23/24 13:30 Resp 13 04/23/24 13:30 BP 123/85 04/23/24 13:30 Pulse Ox 94 L 04/23/24 13:30 O2 Del Method Room Air 04/23/24 11:57 Course Vital Signs Vital signs: Vital Signs Temperature 98.6 F 04/23/24 11:57 Pulse Rate 73 04/23/24 11:57 Respiratory Rate 18 04/23/24 11:57 Blood Pressure 124/86 04/23/24 11:57 Pulse Oximetry 100 04/23/24 11:57 Oxygen Delivery Method Room Air 04/23/24 11:57 Temperature 98.6 F 04/23/24 11:57 Pulse Rate 79 04/23/24 13:30 Respiratory Rate 13 04/23/24 13:30 Blood Pressure 123/85 04/23/24 13:30 Pulse Oximetry 94 L 04/23/24 13:30 Oxygen Delivery Method Room Air 04/23/24 11:57 Medical Decision Making [facility] Narrative Medical decision making narrative: Patient D-dimers, troponin, EKG, chest x-ray showed no acute findings. Differential diagnosis includes gastritis, muscle skeletal process, costochondritis, acid reflux, esophageal spasm, pneumothorax, MT, shingles. Multiple different differential diagnoses were discussed. at bedside. Patient will start taking Motrin 6 or milligrams today with food or drink. Patient will follow-up with PCP. Patient has no rash. Patient did have a rash that lasted 1 day to the right chest, not the left. Patient understands the follow-up to PCP for further testing including GI workup or cardiac workup indicated. No questions at discharge. Patient states that she does feel the pain, and she does suffer from anxiety and believes that her anxiety is getting worse secondary the pain for the last week. No acute complaints. Heart score is 0. Lab Data Labs: Lab Results 04/23/24 Range/Units 12:10 WBC 11.0 (4.0-11.0) 10^3/uL RBC 4.77 (4.20-5.40) 10^6/uL Hgb 14.4 (12.0-16.0) g/dL Hct 42.3 (36.0-48.0) % MCV 88.7 (81.0-99.0) fL MCH 30.2 (26.7-34.0) pg MCHC 34.0 (29.9-35.2) g/dL RDW 12.0 (11.0-15.0) % Plt Count 222 (150-450) 10^3/uL MPV 10.2 (9.5-13.5) fL Neut % (Auto) 70.8 (43.0-75.0) % Lymph % (Auto) 20.5 (20.5-60.0) % [place] % (Auto) 6.6 (1.7-12.0) % Eos % (Auto) 1.4 (0.9-7.0) % Baso % (Auto) 0.4 (0.2-2.0) % Neut # (Auto) 7.8 H (1.4-6.5) 10^3/uL Lymph # (Auto) 2.3 (1.2-3.8) 10^3/uL [place] # (Auto) 0.7 (0.3-0.8) 10^3/uL Eos # (Auto) 0.2 (0.0-0.7) 10^3/uL Baso # (Auto) 0.0 (0.0-0.1) 10^3/uL Abs Immat Gran (auto) 0.03 (0.00-0.03) 10^3/uL Imm/Tot Granulo (auto) 0.3 (0.0-0.5) % D-Dimer 0.19 (<=0.59) mg/L FEU Sodium 140 (136-145) mmol/L Potassium 3.9 (3.5-5.1) mmol/L Chloride 106 (98-107) mmol/L Carbon Dioxide 25.8 (21.0-32.0) mmol/L Anion Gap 12.1 BUN 4.0 L (7.0-18.0) mg/dL Creatinine 0.75 (0.55-1.02) mg/dL Est GFR ( Amer) >60 (>=60 mL/min/1.73m^2) Est GFR (Non-Af Amer) >60 (>=60 mL/min/1.73m^2) BUN/Creatinine Ratio 5.3 Glucose 100 (74-106) mg/dL Calcium 8.9 (8.5-10.1) mg/dL Total Bilirubin 0.7 (0.2-1.0) mg/dL AST 17 (15-37) U/L ALT 25 (14-59) U/L Alkaline Phosphatase 71 (46-116) U/L Troponin I High Sens <4.0 L (4.0-51.3) pg/mL Total Protein 6.6 (6.4-8.2) g/dL Albumin 3.6 (3.4-5.0) g/dL Globulin 3.0 g/dL Albumin/Globulin Ratio 1.2 Lipase 53.0 (16.0-77.0) U/L ECG Data Attestation: I personally reviewed and interpreted this ECG as follows: (EKG interpretation. Normal sinus rhythm at 79 beats a minute. Normal axis deviation. No acute ST elevation, no acute ectopy. QTc of 400.) Discharge Plan Discharge Chief Complaint: Chest Pain Clinical Impression: Chest pain Patient Disposition: Home, Self-Care Time of Disposition Decision: 13:37 Condition: Fair Prescriptions / Home Meds: No Action alprazolam [Xanax] 0.5 mg tablet 0.5 mg PO TID PRN (Reason: anxiety) Qty: 14 0RF Print Language: Urdu Instructions: Chest Pain (ED) Additional Instructions: Take Motrin 600 mg, 3 tabs of your [id number] Motrin every 6 hours with food or drink. Follow-up with PCP if you continue to have pain for outpatient cardiac stress or echocardiogram, GI or cardiac testing if needed. Any other acute concerns, return back to the ER Referrals: Physician,Non-Staff, MD [Primary Care Provider] - 1 week Discharge Date/Time: 04/23/24 13:50
--- NOTE | 2024-04-23 12:19 | XR_ITS ---
[facility] [id number] Patient Name: SUZANNE DAI MRN: [id number] date: 1995 Sex: F Assigned Patient Location: ER Current Patient Location: ER Accession/Order Number: [id number] Exam Date: 04/23/2024 12:15 Report Date: 04/23/2024 12:45 At the request of: BHAVYA SARGENT Procedure: XR chest 1V EXAMINATION: XR chest 1V HISTORY: chest paiin COMPARISON: 11/25/2023 TECHNIQUE: AP portable FINDINGS: LUNGS: No significant pulmonary parenchymal abnormalities. VASCULATURE: No increased pulmonary vasculature. PLEURA: No pneumothorax, effusion, or pleural thickening. CARDIAC: No cardiomegaly or cardiac silhouette abnormality. MEDIASTINUM: No visible mass or adenopathy. BONES: No fracture or visible bone lesion. OTHER: Negative. XR/XR chest 1V IMPRESSION: No acute cardiopulmonary process Electronically authenticated by: HILARIO ANTHONY Date: 04/23/2024 12:45
[2024-04-23 12:20] LABS: Basophils Percent Auto 0.4 % (0.2-2.0); Eosinophils Absolute Auto 0.2 10^3/uL (0.0-0.7); Eosinophils Percent Auto 1.4 % (0.9-7.0); Hematocrit 42.3 % (36.0-48.0); Hemoglobin 14.4 g/dL (12.0-16.0); Immature Granulocytes Abs Auto 0.03 10^3/uL (0.00-0.03); Immature Granulocytes Pct Auto 0.3 % (0.0-0.5); Lymphocytes Absolute Auto 2.3 10^3/uL (1.2-3.8); Lymphocytes Percent Auto 20.5 % (20.5-60.0); Mean Corpuscular Hemoglobin 30.2 pg (26.7-34.0); Mean Corpuscular Volume 88.7 fL (81.0-99.0); Mean Platelet Volume 10.2 fL (9.5-13.5); Monocytes Absolute Auto 0.7 10^3/uL (0.3-0.8); Monocytes Percent Auto 6.6 % (1.7-12.0); Neutrophils Absolute Auto 7.8 10^3/uL (1.4-6.5); Neutrophils Percent Auto 70.8 % (43.0-75.0); Platelet Count 222 10^3/uL (150-450); Red Blood Count 4.77 10^6/uL (4.20-5.40)
[2024-04-23 12:42] LABS: Alanine Aminotransferase 25 U/L (14-59); Albumin Globulin Ratio 1.2; Albumin Level 3.6 g/dL (3.4-5.0); Alkaline Phosphatase 71 U/L (46-116); Anion Gap 12.1; Aspartate Amino Transferase 17 U/L (15-37); BUN Creatinine Ratio 5.3; Bilirubin Total 0.7 mg/dL (0.2-1.0); Calcium 8.9 mg/dL (8.5-10.1); Carbon Dioxide 25.8 mmol/L (21.0-32.0); Chloride 106 mmol/L (98-107); Estimated GFR (African America >60 (>=60 mL/min/1.73m^2); Estimated GFR (Non-African Ame >60 (>=60 mL/min/1.73m^2); Glucose 100 mg/dL (74-106); Potassium 3.9 mmol/L (3.5-5.1); Sodium 140 mmol/L (136-145); Total Protein 6.6 g/dL (6.4-8.2)
[2024-04-23 12:50] LABS: D Dimer 0.19 mg/L FEU (<=0.59)
[2024-04-23 13:24] LABS: Troponin I High Sensitivity <4.0 pg/mL (4.0-51.3)
== END 2024-04-23 13:50 | disposition home or self-care (01) ==
PROVIDERS: Emergency Provider Emergency Medicine
DX: R07.9 Chest pain, unspecified (principal); F41.9 Anxiety disorder, unspecified; Z97.5 Presence of (intrauterine) contraceptive device
CPT/HCPCS: 36415; 71045; 80053; 83690; 84484; 85025; 85378; 93005; 99285

== ENCOUNTER 2024-05-17 09:17 | Outpatient (OUT) | payer BC, SELFPAY ==
--- NOTE | 2024-05-17 09:20 | US_ITS ---
[address] [address] Patient Name: SUZANNE DAI MRN: [id number] date: 1995 Sex: F Assigned Patient Location: [facility] Current Patient Location: Accession/Order Number: [id number] Exam Date: 05/17/2024 09:20 Report Date: 05/18/2024 04:38 At the request of: ESTHER JUAN Procedure: US pelvis w/ transvaginal EXAMINATION: US pelvis w/ transvaginal HISTORY: PELVIC PAIN COMPARISON: No relevant comparison available. TECHNIQUE: Transabdominal and/or transvaginal sonographic examination was performed as indicated by examination type. FINDINGS: UTERUS: Normal size and appearance. Uterus size: 9.3 x 3.7 x 6.0 cm ENDOMETRIUM: Normal homogeneous appearance. IUD within endometrial cavity. Endometrial thickness: 5 mm RIGHT OVARY: Contains several follicles of variable size. Duplex Doppler demonstrates normal waveform and flow; resistive index 0.4. Ovary size: 3.4 x 2.4 x 2.9 cm LEFT OVARY: Contains several follicles of variable size. Duplex Doppler demonstrates normal waveform and flow; resistive index 0.6. Ovary size: 3.0 x 1.9 x 3.0 cm CUL-DE-SAC: Unremarkable. No significant free fluid. BLADDER: Unremarkable. OTHER: None. US/US pelvis w/ transvaginal IMPRESSION: 1. IUD within endometrial cavity. 2. Both ovaries contain several follicles of variable size. No classic ultrasound findings to suggest polycystic ovarian syndrome. Electronically authenticated by: TY BROOKS Date: 05/18/2024 04:38
--- OUTSIDE RECORDS SUMMARY | 2024-05-17 09:29 | XMS_ITS | CCD ---
Author Organization [facility] Care Team Providers Care Batch Unloader Name Role Phone DR BRAYAN ALLISON Admitting Unavailable KEEGAN, DR SANTANA Attending Unavailable DR BRAYAN ALLISON Consulting Unavailable Easterwood, Shawna Unavailable NONE, XXXX Primary Care Physician Unavailab SHAWNA Garcia Primary Care Physician [phone] Shivam Alvarez Attending Unavailable TAYA BALDERRAMA Attending Unavailable IRIS NUNEZ Attending UnavailMamta Bowden Attending Unavailable IRIS HEALY Attending Unavailable QUANGERAMELIA, IRIS MATOS Admitting Unavailable DO Jesica Mccabe Attending Unavailable YOVANI Healy Primary Care Provider [phone] YOVANI Healy Attending Provider [phone] Mamta Us Attending Unavailable Juliana Barton Attending Unavailable Juliana Barton Attending Unavailable QUANGERAMELIA, SHAWNA Admitting Unavailable QUANGERWOODSHAWNA Attending Unavailable DO Jesica Mccabe Attending Unavailable QUANGERWOOD, IRIS MATOS Referring Unavailable Lev LACKEY Attending Unavailable EASTERWOODIRIS Attending Unavailable EASTERWOOD, IRIS MATOS Admitting Unavailable EASTERWOOD, IRIS MATOS Attending Unavailable EASTERWOOD, SUPERVISOR FILM PROCESSING SHAWNA Admitting Unavailable Shawna Healy MD Unavailable DO Jesica Mccabe Attending Unavailable DokkDO Belgica bainn Hien Attending Unavailable YOVANI Healy Primary Care Provider YOVANI Healy Attending Provider [phone] NONE, XXXX Admitting Unavailable Darwin Irizarry Attending Unavailable TRACEY Rai Referring Unavailab TRACEY Vigil Attending Unavailab DAMION Cooley Attending Unavail able SIXTO ORELLANA Referring Unavailable SIXTO ORELLANA Attending Unavailable SIXTO ORELLANA Referring Unavailable DARA AVILES Attending Unavailable BRAYAN ALLISON Attending Unavailable EASTERWOOD, SHAWNA Primary Care Unavailable Kaz Miner Attending Unavailable Easterwood, Shawna Rodriguez Primary Care Unavailable Kaz Miner Admitting Unavailable Easterwood, Shawna Jennifer Admitting Unavailable Easterwood, Shawna J Primary Care Unavailable Easterwood, Shawna J Attending Unavailable Easterwood, Shawna J Admitting Unavailable Easterwood, Shawna J Attending Unavailable Allergies Allergy Classification Reported Allergen(s) Allergy Type Date of Onset Reaction(s) Facility (11 sources) Amoxicillin / Clavulanate; Translations: [Augmentin] Drug Allergy 07-04-19 11 [facility], [facility] Repository (1 source) Sulfamethoxazole / Trimethoprim Drug Allergy 07-04-19 11 [facility] Repository (12 sources) Amoxicillin / Clavulanate; Translations: [amoxicillin-clavul anate] Drug Allergy [facility], [facility] (20 sources) Sulfamethoxazole / Trimethoprim; Translations: [sulfamethoxazole-t rimethoprim] Drug Allergy 10-26-19 24 [facility] (14 sources) Amoxicillin; Translations: [amoxicillin] Drug Allergy 04-11-20 [facility] (14 sources) Clavulanate; Translations: [clavulanic acid] Drug Allergy 04-11-20 [facility] (14 sources) Sulfamethoxazole; Translations: [sulfamethoxazole] Drug Allergy 04-11-20 [facility] (8 sources) Sulfonamides (Antibiotic); Translations: [Sulfa (Sulfonamide Antibiotics)] Propensity to adverse reactions 11-29-19 [facility] (14 sources) Trimethoprim; Translations: [trimethoprim] Drug Allergy 04-11-20 [facility] (8 sources) Sulfamethoxazole / Trimethoprim; Translations: [Septra] Drug Allergy [facility] Repository (8 sources) Sulfamethoxazole / Trimethoprim; Translations: [Bactrim] Drug Allergy [facility] Repository (6 sources) Amoxicillin-Pot Clavulanate Drug Allergy 10-26-19 [facility] (3 sources) Sulfonamides (Antibiotic) Drug Allergy 05-08-20 [facility] (4 sources) Sulfur; Translations: [SULFUR] Drug Allergy 05-04-20 [facility] (1 source) Sulfamethoxazole / Trimethoprim; Translations: [SULFAMETHOXAZOLE-T RIMETHOPRIM] Drug Allergy 05-04-20 [facility] Repository Medications Current Medications Medication Drug Class(es) Dates Sig (Normalized) Sig (Original) acetaminophen 300 mg / butalbital 50 mg / caffeine 40 mg oral capsule (1 source) Barbiturate, Central Nervous System Stimulant, Methylxanthine Start: 05-08-2024 take 1 capsule by mouth three times daily Butalbital-Acetamin ophen-Caff (Fioricet) 50-300-40 mg capsule Active 1 CAP PO Three times daily 15 May 08, 2024 12:00am acetaminophen 325 mg / HYDROcodone bitartrate 5 mg oral tablet (1 source) Opioid Agonist Start: 05-02-2024 End: 05-05-2024 [place] 325 mg-5 mg oral tablet 1 tab(s), Oral, q6hr for pain for 3 day(s), 8 tab(s), Refill(s) 0, [facility] #[id number], 160, cm, 05/02/24 19:02:00 EDT, Height/Length Dosing, 82.5, kg, 05/02/24 19:02:00 EDT, Weight Dosing Start Date: 05/02/24 Stop Date: 05/05/24 Status: Ordered busPIRone hydrochloride 5 mg oral tablet (4 sources) Start: 04-05-2024 take 1 tablet by mouth three times daily busPIRone 5 mg Tab 5 mg = 1 tab(s), Oral, TID, # 90 tab(s), Refills(s) 0, Pharmacy: [facility] #[id number], 160, cm, 04/05/24 9:37:00 EDT, Height/Length Dosing, 83.7, kg, 04/05/24 9:37:00 EDT, Weight Dosing Start Date: 04/05/24 Status: Ordered cephalexin 500 mg oral capsule (1 source) Cephalosporin Antibacterial Start: 05-02-2024 End: 05-09-2024 take 1 capsule by mouth every twelve hours cephalexin 500 mg Cap 500 mg = 1 cap(s), Oral, q12hr, X 7 day(s), # 14 cap(s), Refills(s) 0, Pharmacy: [facility] #[id number], 160, cm, 05/02/24 19:02:00 EDT, Height/Length Dosing, 82.5, kg, 05/02/24 19:02:00 EDT, Weight Dosing Start Date: 05/02/24 Stop Date: 05/09/24 Status: Ordered cyclobenzaprine hydrochloride 10 mg oral tablet (3 sources) Muscle Relaxant Start: 05-09-2024 End: 05-19-2024 take 1 tablet by mouth three times daily as needed for muscle spasms cyclobenzaprine (Flexeril) 10 MG tablet Indications: Acute bilateral low back pain with bilateral sciatica Take 1 tablet (10 mg) by mouth 3 (three) times a day as needed for muscle spasms for up to 10 days 30 tablet 05/09/2024 05/19/2024 Active dicyclomine hydrochloride 10 mg oral capsule (4 sources) Anticholinergic Start: 01-10-2024 dicyclomine 10 mg Cap Refills(s) 0 Start Date: 01/10/24 Status: Ordered Start: 12-28-2023 End: 01-04-2024 take 1 capsule by mouth four times daily Bentyl 10 mg Cap 10 mg = 1 cap(s), Oral, QID, X 7 day(s), # 28 cap(s), Refills(s) 0, Pharmacy: [facility] #[id number], 160, cm, 12/28/23 10:54:00 EDT, Height/Length Dosing, 81.7, kg, 12/28/23 10:54:00 EDT, Weight Dosing Start Date: 12/28/23 Stop Date: 01/04/24 Status: Ordered docusate sodium 100 mg oral capsule (2 sources) Start: 05-02-2024 take 1 capsule by mouth twice daily Colace 100 mg Cap 100 mg = 1 cap(s), Oral, BID, # 20 cap(s), Refills(s) 0, Pharmacy: [facility] #[id number], 160, cm, 05/02/24 19:02:00 EDT, Height/Length Dosing, 82.5, kg, 05/02/24 19:02:00 EDT, Weight Dosing Start Date: 05/02/24 Status: Ordered ergocalciferol 1.25 mg oral capsule (11 sources) Provitamin D2 Compound Start: 03-19-2024 take 1 capsule by mouth every week ergocalciferol (Vitamin D2) 1.25 MG (12026 UT) capsule TAKE 1 CAPSULE BY MOUTH EVERY WEEK FOR 12 WEEKS 04/17/2024 Active ertapenem (2 sources) Penem Antibacterial Start: 05-08-2024 take 1 g intravenously once daily Ertapenem Active 1 GM IV .daily x5 days May 08, 2024 12:00am Start: 05-04-2024 End: 05-09-2024 take 1 g intravenously once daily ertapenem 1 g Inj 1 gm, IV Piggyback, Daily, X 5 day(s), # 5 EA, Refills(s) 0 Start Date: 05/04/24 Stop Date: 05/09/24 Status: Ordered ibuprofen 800 mg oral tablet (3 sources) Nonsteroidal Anti-inflammatory Drug Start: 05-09-2024 End: 06-08-2024 take 1 tablet by mouth three times daily as needed for pain ibuprofen 800 MG tablet Indications: Pelvic pain in female , Breast pain , Acute bilateral low back pain with bilateral sciatica Take 1 tablet (800 mg) by mouth 3 (three) times a day as needed for mild pain 40 tablet 1 05/09/2024 06/08/2024 Active levonorgestrel 0.043113 mg/hr intrauterine system (17 sources) Progestin, Progestin-containing Intrauterine Device Start: 11-25-2023 Levonorgestrel 20 MCG/DAY intrauterine device As Directed 11/25/2023 Active Start: 11-25-2023 Levonorgestrel Active 1 DEVICE INTRAUTERI As Directed November 24, 2023 11:00pm Mirena (52 MG) 2 0 MCG/DAY as directed Intrauterine Active linaclotide 0.145 mg oral capsule (2 sources) Guanylate Cyclase-C Agonist Start: 01-10-2024 take 1 capsule by mouth once daily Linzess 145 mcg oral capsule 145 mcg = 1 cap(s), Oral, Daily, # 30 cap(s), Refills(s) 5, [facility]acy: [facility] #[id number], 160, cm, 01/10/24 13:34:00 EDT, Height/Length Dosing, 85, kg, 01/10/24 13:34:00 EDT, Weight Dosing Start Date: 01/10/24 Status: Ordered metroNIDAZOLE 500 mg oral tablet (3 sources) Nitroimidazole Antimicrobial Start: 05-09-2024 End: 05-16-2024 take 1 tablet by mouth in the morning metroNIDAZOLE (Flagyl) 500 MG tablet Indications: Vaginal odor Take 1 tablet (500 mg) by mouth in the morning and 1 tablet (500 mg) before bedtime. Do all this for 7 days. 14 tablet 05/09/2024 05/16/2024 Active naproxen 500 mg oral tablet (7 sources) Nonsteroidal Anti-inflammatory Drug Start: 05-02-2024 End: 05-12-2024 take 1 tablet by mouth twice daily naproxen 500 mg Tab 500 mg = 1 tab(s), Oral, BID, X 10 day(s), # 20 tab(s), Refills(s) 0, Pharmacy: [facility] #[id number], 160, cm, 05/02/24 19:02:00 EDT, Height/Length Dosing, 82.5, kg, 05/02/24 19:02:00 EDT, Weight Dosing Start Date: 05/02/24 Stop Date: 05/12/24 Status: Ordered Start: 02-10-2023 take 1 tablet by pippa twice daily as needed for pain naproxen 500 mg Tab 500 mg = 1 tab(s), Oral, BID, PRN for pain, # 20 tab(s), Refills(s) 0, Pharmacy: [facility] #[id number], 160, cm, 02/10/23 1:25:00 EDT, Height/Length Dosing, 81.4, kg, 02/10/23 1:25:00 EDT, Weight Dosing Start Date: 02/10/23 Status: Ordered nitrofurantoin, macrocrystals 25 mg / nitrofurantoin, monohydrate 75 mg oral capsule (2 sources) Nitrofuran Antibacterial Start: 05-01-2024 End: 05-08-2024 take 1 capsule by mouth in the morning nitrofurantoin, macrocrystal-monohydrate, (Macrobid) 100 MG capsule Indications: Dysuria Take 1 capsule (100 mg) by mouth in the morning and 1 capsule (100 mg) before bedtime. Do all this for 7 days. 14 capsule 05/01/2024 05/08/2024 Active ondansetron 4 mg disintegrating oral tablet (5 sources) Serotonin-3 Receptor Antagonist Start: 05-02-2024 take 1 tablet by mouth every six hours ondansetron 4 mg Dis Tab 4 mg = 1 tab(s), Oral, q6hr, # 12 tab(s), Refills(s) 0, Pharmacy: [facility] #[id number], 160, cm, 05/02/24 19:02:00 EDT, Height/Length Dosing, 82.5, kg, 05/02/24 19:02:00 EDT, Weight Dosing Start Date: 05/02/24 Status: Ordered Start: 12-28-2023 ondansetron (Z ofran) 4 MG tablet Take 4 mg by mouth 12/28/2023 Active oxyCODONE hydrochloride 5 mg oral capsule (3 sources) Opioid Agonist Start: 02-10-2023 oxyCODONE 5 mg Cap 5 mg = 1 cap(s), Oral, q6hr, PRN Pain 8-10, # 4 cap(s), Refills(s) 0, [facility]: [facility] #[id number], 160, cm, 02/10/23 1:25:00 EDT, Height/Length Dosing, 81.4, kg, 02/10/23 1:25:00 EDT, Weight Dosing Start Date: 02/10/23 Status: Ordered pantoprazole 40 mg delayed release oral tablet (4 sources) Proton Pump Inhibitor Start: 12-28-2023 take 1 tablet by mouth once daily Protonix 40 mg Tab-DR 40 mg = 1 tab(s), Oral, Daily, # 30 tab(s), Refills(s) 0, Pharmacy: [facility] #[id number], 160, cm, 12/28/23 10:54:00 EDT, Height/Length Dosing, 81.7, kg, 12/28/23 10:54:00 EDT, Weight Dosing Start Date: 12/28/23 Status: Ordered polyethylene glycol 3350 63449 mg powder for oral solution (2 sources) Osmotic Laxative Start: 05-02-2024 take 17 g by mouth once daily Miralax 3350 17 gram packet 17 gm, Oral, Daily, # 10 EA, Refills(s) 0, Pharmacy: [facility] #[id number], 160, cm, 05/02/24 19:02:00 EDT, Height/Length Dosing, 82.5, kg, 05/02/24 19:02:00 EDT, Weight Dosing Start Date: 05/02/24 Status: Ordered promethazine hydrochloride 12.5 mg oral tablet (4 sources) Phenothiazine Start: 05-06-2024 take 1 tablet by mouth every eight hours as needed for nausea promethazine 12.5 mg oral tablet 12.5 mg = 1 tab(s), Oral, q8hr, PRN as needed for nausea/vomiting, # 10 tab(s), Refills(s) 0, Pharmacy: [facility] #[id number], 160, cm, 05/05/24 21:07:00 EDT, Height/Length Dosing, 82.5, kg, 05/05/24 21:07:00 EDT, Weight Dosing Start Date: 05/06/24 Status: Ordered Start: 05-28-2016 take 1 tablet by pippa th every six hours for nausea and vomiting Phenergan 25 mg Tab 25 mg = 1 tab(s), Oral, q6hr, Take one by mouth every six hours for nausea and vomiting, # 10 tab(s), Refills(s) 0 Start Date: 05/28/16 Status: Ordered sucralfate 1000 mg oral tablet [...] day(s), # 28 tab(s), Refills(s) 0, Pharmacy: [facility] #[id number], 160, cm, 12/28/23 10:54:00 EDT, Height/Length Dosing, 81.7, kg, 12/28/23 10:54:00 EDT, Weight Dosing Start Date: 12/28/23 Stop Date: 01/04/24 Status: Ordered tenapanor 50 mg oral tablet (5 sources) Start: 04-05-2024 take 1 tablet by mouth twice daily Ibsrela 50 mg oral tablet 50 mg = 1 tab(s), Oral, BID, # 30 tab(s), Refills(s) 4, Pharmacy: [facility] #[id number], 160, cm, 04/05/24 9:37:00 EDT, Height/Length Dosing, 83.7, kg, 04/05/24 9:37:00 EDT, Weight Dosing Start Date: 04/05/24 Status: Ordered Zofran ODT 4 mg Tab-Dis (9 sources) Start: 12-28-2023 take 1 tablet by mouth every eight hours as needed for nausea Zofran ODT 4 mg Tab-Dis 4 mg = 1 tab(s), Oral, q8hr, PRN Nausea/Vomiting, # 20 tab(s), Refills(s) 0, Pharmacy: [facility] #[id number], 160, cm, 12/28/23 10:54:00 EDT, Height/Length Dosing, 81.7, kg, 12/28/23 10:54:00 EDT, Weight Dosing Start Date: 12/28/23 Status: Ordered Start: 02-10-2023 take 1 tablet by pippa th every eight hours as needed for nausea Zofran ODT 4 mg Tab-Dis 4 mg = 1 tab(s), Oral, q8hr, PRN Nausea/Vomiting, # 12 tab(s), Refills(s) 0, Pharmacy: [facility] #[id number], 160, cm, 02/10/23 1:25:00 EDT, Height/Length Dosing, 81.4, kg, 02/10/23 1:25:00 EDT, Weight Dosing Start Date: 02/10/23 Status: Ordered Completed/Discontinued Medications Medication Drug Class(es) Dates Sig (Normalized) Sig (Original) ALPRAZolam 0.5 mg oral tablet (7 sources) Benzodiazepine Start: 11-29-2023 End: 03-13-2024 take 1 tablet by mouth three times daily Alprazolam (Xanax) 0.5 mg tablet Discontinued 0.5 MG PO Three times daily November 28, 2023 11:00pm March 13, 2024 2:51pm From [facility] 11/24 fluconazole 150 mg oral tablet (5 sources) Azole Antifungal Start: 03-19-2024 End: 04-17-2024 Fluconazole Discontinued 150 MG PO Q3D 3 March 18, 2024 11:00pm April 17, 2024 2:40pm sodium fluoride 0.011 mg/mg toothpaste (7 sources) Start: 11-29-2023 End: 03-13-2024 Fluoride (Sodium) (Sf 5000 Plus) 1.1 % cream Discontinued 1 APPLIC DENTAL Daily November 28, 2023 11:00pm March 13, 2024 2:51pm Problems Active Problems Problem Classification Problem Date Documented Da te Episodic/Chronic Abdominal pain (20 sources) Abdominal pain; Translations: [Unspecified abdominal pain] Onset: 02-10-2023 Episodic Blindness and vision defects (2 sources) Blurring of visual image; Translations: [Other visual disturbances] 05-08-2024 Episodic Conditions associated with dizziness or vertigo (7 sources) Dizziness; Translations: [Dizziness and giddiness] 03-13-2024 Episodic Genitourinary symptoms and ill-defined conditions (20 sources) Dysuria; Translations: [Dysuria] Onset: 03-26-2024 03-13-2024 Episodic Headache; including migraine (3 sources) Migraine; Translations: [Migraine, unspecified, not intractable, without status migrainosus] 05-08-2024 Chronic Headache; including migraine (1 source) Headache; Translations: [Headache, unspecified] Onset: 05-06-2024 Episodic Hemorrhoids (12 sources) Hemorrhoids; Translations: [Unspecified hemorrhoids] Episodic Immunizations and screening for infectious disease (1 source) Encounter for screening for human papillomavirus (HPV); Translations: [ENC SCREENING HUMAN PAPILLOMAVIRUS] Onset: 09-15-2021 Episodic Malaise and fatigue (14 sources) Fatigue; Translations: [Other fatigue] 03-13-2024 Episodic Miscellaneous mental health disorders (15 sources) Anxiety about body function or health; Translations: [Other symptoms and signs involving emotional state] 11-29-2023 Episodic Nausea and vomiting (11 sources) Nausea; Translations: [Nausea] Onset: 12-28-2023 Episodic Nonmalignant breast conditions (2 sources) Pain of breast; Translations: [Mastodynia] 05-09-2024 Episodic Nonspecific chest pain (10 sources) Chest pain; Translations: [Chest pain, unspecified] 03-16-2024 Episodic Nutritional deficiencies (8 sources) Vitamin D deficiency; Translations: [Vitamin D deficiency, unspecified] 03-21-2024 Chronic Other aftercare (1 source) Encounter for follow-up examination after completed treatment for conditions other than malignant neoplasm Episodic Other connective tissue disease (5 sources) Neuropathic pain; Translations: [Neuralgia and neuritis, unspecified] 03-16-2024 Episodic Other connective tissue disease (9 sources) Neuralgia and neuritis, unspecified; Translations: [Neuralgia, neuritis, and radiculitis, unspecified] 03-13-2024 Episodic Other diseases of bladder and urethra (2 sources) Spasm of bladder; Translations: [Other specified disorders of bladder] 05-01-2024 Chronic Other female genital disorders (4 sources) Pruritus of vagina; Translations: [Other specified noninflammatory disorders of vagina] 03-21-2024 Episodic Other female genital disorders (4 sources) Other specified noninflammatory disorders of vagina; Translations: [Pruritus of genital organs] 03-19-2024 Episodic Other female genital disorders (2 sources) Vaginal odor; Translations: [Other specified noninflammatory disorders of vagina] 05-09-2024 Episodic Other gastrointestinal disorders (13 sources) Chronic idiopathic constipation; Translations: [Chronic idiopathic constipation] 11-25-2023 Chronic Other gastrointestinal disorders (2 sources) Chronic idiopathic constipation Chronic Other gastrointestinal disorders (9 sources) Irritable bowel syndrome characterized by constipation; Translations: [Irritable bowel syndrome with constipation] Onset: 01-10-2024 Chronic Other gastrointestinal disorders (1 source) Diarrhea; Translations: [Diarrhea, unspecified] Onset: 12-28-2023 Episodic Other gastrointestinal disorders (2 sources) Swollen abdomen; Translations: [Abdominal distension (gaseous)] Onset: 01-10-2024 Episodic Other gastrointestinal disorders (7 sources) Abdominal bloating 01-10-2024 Episodic Other gastrointestinal disorders (1 source) Constipation, unspecified; Translations: [Constipation, unspecified] Onset: 05-02-2024 Episodic Other nervous system disorders (1 source) Paresthesia; Translations: [Paresthesia of skin] 05-08-2024 Episodic Other nervous system disorders (1 source) Numbness of face; Translations: [Anesthesia of skin] 05-08-2024 Episodic Other nervous system disorders (1 source) Anesthesia of skin; Translations: [Disturbance of skin sensation] 05-08-2024 Episodic Other nervous system disorders (1 source) Paresthesia of skin; Translations: [Disturbance of skin sensation] 05-08-2024 Episodic Other screening for suspected conditions (not mental disorders or infectious disease) (14 sources) Encounter for screening for malignant neoplasm of cervix; Translations: [No current problems or disability] Onset: 09-14-2021 Episodic Spondylosis; intervertebral disc disorders; other back problems (19 sources) Low back pain; Translations: [Low back pain] 03-13-2024 Episodic Urinary tract infections (4 sources) Urinary tract infectious disease; Translations: [Urinary tract infection, site not specified] Onset: 05-02-2024 Episodic Past or Other Problems Problem Classification Problem Date Documented Da te Episodic/Chronic Unclassified (7 sources) Ankle fracture 06-15-2023 Results Test Name Value Interpretation Reference Range Facility RECURRENT VAGINITIS (HTRX)on 05-11-2024 ATOPOBIUM VAGINAE 0 [facility] ATOPOBIUM VAGINAE Not detected [facility] Healthcare BVAB 2,3 (BACTERIAL VAGINOSIS ASSOCIATED BACTERIA 2, 3); MOBILUNCUS SPP 0 [facility] BVAB 2,3 (BACTERIAL VAGINOSIS ASSOCIATED BACTERIA 2, 3); MOBILUNCUS SPP Not detected [facility] JULIANN ALBICANS, PARAPSILOSIS, TROPICALIS 0 [facility] JULIANN ALBICANS, PARAPSILOSIS, TROPICALIS Not detected [facility] JULIANN GLABRATA 0 [facility] JULIANN GLABRATA Not detected [facility] JULIANN KRUSEI 0 [facility] JULIANN KRUSEI Not detected [facility] CHLAMYDIA TRACHOMATIS 0 [facility] CHLAMYDIA TRACHOMATIS Not detected [facility] GARDNERELLA VAGINALIS 0 [facility] GARDNERELLA VAGINALIS Not detected [facility] MEGASPHAERA (TYPES 1, 2) 0 [facility] MEGASPHAERA (TYPES 1, 2) Not detected [facility] MYCOPLASMA GENITALIUM 0 [facility] MYCOPLASMA GENITALIUM Not detected [facility] NEISSERIA GONORRHOEAE 0 [facility] NEISSERIA GONORRHOEAE Not detected [facility] TRICHOMONAS VAGINALIS 0 [facility] TRICHOMONAS VAGINALIS Not detected [facility] Blood Cultureon 05-10-2024 Bacteria identified Cx Nom (Bld) NO GROWTH 5 DAYS PERFORMED BY: [place] [address] PATHOLOGIST [employer] LEONARDO LARA M.D. Normal [facility] Comment on above: Performed By: #### C UBLD, CMP, CBC #### [facility] [address] [place] [address] Bacteria identified Cx Nom (Bld) NO GROWTH 5 DAYS PERFORMED BY: [place] [address] PATHOLOGIST [employer] LEONARDO LARA M.D. Normal [facility] Comment on above: Performed By: #### C UBLD, CMP, CBC #### [address] abdomen pelvis wo conon 1 07-10-2023 CT abdomen pelvis wo con [facility] Main [place] [address] [place] [address] CT Scan Report Signed Patient: Jack Rea MR#: [id number] 53 : 1995 Acct:[id number] Age/Sex: 29 / F ADM Date: 05/10/24 Loc: ER Room: Type: [facility] ER Attending Dr: Copies to: Kaz Miner MD Ordering Provider: Kaz Miner MD Date of Service: 05/10/24 CT/CT abdomen pelvis wo con: urogenital complaints CT abdomen pelvis wo con 05/10/2024 7:07 PM SIGNS AND SYMPTOMS: Bilateral flank pain, hematuria TECHNIQUE: Multidetector ct axial images of the abdomen and pelvis were obtained without IV contrast. Multiplanar reformats were performed and reviewed to further define anatomy and possible p athology. CT was performed with one or more of the following dose reduction techniques: Automated exposure control, adjustment of the mA and/or kV according to patient size, or use of iterative reconstruction technique. COMPARISON: None. FINDINGS: Lower Chest: There is linear scarring at the left lung base. ABDOMEN: Liver: Within normal limits. Bile Ducts: Normal caliber. Gallbladder: No calcified gallstones. Normal caliber wall. Pancreas: Within normal limits. Spleen: Within normal limits. Adrenals: Within normal limits. Kidneys: There is a 2 mm nonobstructing stone in the right renal collecting system. There are areas of increased attenuation within the medullary pyramids suggesting medullary nephrocalcinosis bilaterally. Pelvis: Reproductive Organs: There is an intrauterine device within the endometrial canal. Ureters: Within normal limits. Bladder: Within normal limits. Bowel: Normal caliber. There is a normal appendix in the right lower quadrant. Mesenteric Lymph Nodes: No enlarged mesenteric lymph nodes. Peritoneum: No ascites or free air, no fluid collection. Vessels: within normal limits Retroperitoneum: Within normal limits. Abdominal Wall: Within normal limits. Bones: Degenerative changes are noted in the thoracic spine. Degenerative changes are noted in the sacroiliac joints. CT/CT abdomen pelvis wo con IMPRESSION: No bowel obstruction or obstructive uropathy. There is a 2 mm nonobstructing stone in the right renal collecting system. There are areas of increased attenuation within the medullary pyramids suggesting medullary nephrocalcinosis bilaterally. Impression dictated by: Darek Phipps M.D.05/10/2024 7:54 PM Dictation Location: [place] [address] Transcribed By: [facility] 05/10/241953 Dictated By: Darek Phipps II, MD 05/10/241947 Signed By: 05/10/241953 Normal [facility] Complete Blood Count Auto Di ffon 05-10-2024 Basophils (Bld) [#/Vol] 0.1 10*3/uL Normal 0.0-0.2 [facility] Comment on above: Result Comment: PERF ORMED BY: [place] [address] PATHOLOGIST [employer] LEONARD[employer] LARA M.D. Performed By: #### C UBLD, CMP, CBC #### [address] Basophils/100 WBC (Bld) 0.5 % Normal . T ginette [facility] Comment on above: Performed By: #### C UBLD, CMP, CBC #### [address] Eosinophils (Bld) [#/Vol] 0.1 10*3/uL Normal 0.0-0.45 [facility] Comment on above: Performed By: #### C UBLD, CMP, CBC #### [address] Eosinophils/100 WBC (Bld) 0.8 % Normal . [facility] Comment on above: Performed By: #### C UBLD, CMP, CBC #### [address] Erythrocyte distribution width (RBC) [Ratio] 12.8 % Normal 11.9-15.3 [facility] Comment on above: Performed By: #### C UBLD, CMP, CBC #### [address] Hematocrit (Bld) [Volume fraction] 43.3 % Normal 34.0-46.4 [facility] Comment on above: Performed By: #### C UBLD, CMP, CBC #### [address] Hemoglobin (Bld) [Mass/Vol] 14.8 g/dL Normal 11.8-15.4 [facility] Comment on above: Performed By: #### C UBLD, CMP, CBC #### [address] Lymphocytes (Bld) [#/Vol] 2.7 10*3/uL Normal 1.00-4.8 [facility] Comment on above: Performed By: #### C UBLD, CMP, CBC #### [address] Lymphocytes/100 WBC (Bld) 22.6 % Normal . [facility] Comment on above: Performed By: #### C UBLD, CMP, CBC #### [address] MCH (RBC) [Entitic mass] 29.6 pg Normal 24.7-34.3 [facility] Comment on above: Performed By: #### C UBLD, CMP, CBC #### [address] MCV (RBC) [Entitic vol] 86.6 fL Normal 80-100 [facility] Comment on above: Performed By: #### C UBLD, CMP, CBC #### [address] Mean Corpuscular HGB Conc 34.2 g/dL Normal 32.0-35.0 [facility] Comment on above: Performed By: #### C UBLD, CMP, CBC #### [address] Monocytes (Bld) [#/Vol] 0.5 10*3/uL Normal 0.0-0.8 [facility] Comment on above: Performed By: #### C UBLD, CMP, CBC #### [address] Monocytes/100 WBC (Bld) 17.60 % Normal 0.00-20.00 [facility] Comment on above: Performed By: #### C UBLD, CMP, CBC #### [address] Monocytes/100 WBC (Bld) 4.5 % Normal . [facility] Comment on above: Performed By: #### C UBLD, CMP, CBC #### [place] [address] [place] Neutrophils (Bld) [#/Vol] 8.7 10*3/uL High 1.8-7.7 [facility] Comment on above: Performed By: #### C UBLD, CMP, CBC #### [address] Neutrophils/100 WBC (Bld) 71.6 % Normal . [facility] Comment on above: Performed By: #### C UBLD, CMP, CBC #### [address] NRBC% 0.0 /100{WBC} Normal 0-0.5 [facility] Comment on above: Performed By: #### C UBLD, CMP, CBC #### [address] Platelet mean volume (Bld) [Entitic vol] 8.6 fL Normal 6.3-10.7 [facility] Comment on above: Performed By: #### C UBLD, CMP, CBC #### [address] Platelets (Bld) [#/Vol] 243 10*3/uL Normal 150-450 [facility] Comment on above: Performed By: #### C UBLD, CMP, CBC #### [address] RBC (Bld) [#/Vol] 5.00 10*6/uL Normal 3.60-5.00 [facility] Comment on above: Performed By: #### C UBLD, CMP, CBC #### [address] WBC (Bld) [#/Vol] 12.1 10*3/uL High 3.8-11.6 [facility] Comment on above: Performed By: #### C UBLD, CMP, CBC #### [address] Comprehensive Metabolic Pane gloria 05-10-2024 Albumin [Mass/Vol] 4.7 g/dL Normal 3.5-5.7 [facility] Comment on above: Performed By: #### C UBLD, CMP, CBC #### [address] Albumin/Globulin [Mass ratio] 1.9 {ratio} Normal [facility] Comment on above: Performed By: #### C UBLD, CMP, CBC #### [address] ALP [Catalytic activity/Vol] 74 U/L Normal 34-104 [facility] Comment on above: Performed By: #### C UBLD, CMP, CBC #### [facility] [address] ALT [Catalytic activity/Vol] 15 U/L Normal 7-52 [facility] Comment on above: Performed By: #### C UBLD, CMP, CBC #### [address] Anion gap [Moles/Vol] 11.3 mmol/L Normal 6.0-15.0 [facility] Comment on above: Performed By: #### C UBLD, CMP, CBC #### [address] AST [Catalytic activity/Vol] 15 U/L Normal 13-39 [facility] Comment on above: Performed By: #### C UBLD, CMP, CBC #### [address] Bilirubin [Mass/Vol] 0.7 mg/dL Normal 0.3-1.0 [facility] Comment on above: Performed By: #### C UBLD, CMP, CBC #### [address] Calcium [Mass/Vol] 9.6 mg/dL Normal 8.6-10.3 [facility] Comment on above: Performed By: #### C UBLD, CMP, CBC #### [place] [address] [place] Chloride [Moles/Vol] 105 mmol/L Normal 98-107 [facility] Comment on above: Performed By: #### C UBLD, CMP, CBC #### [place] [address] [place] CO2 [Moles/Vol] 24.7 mmol/L Normal 21.0-31.0 [facility] Comment on above: Performed By: #### C UBLD, CMP, CBC #### [address] Creatinine [Mass/Vol] 0.70 mg/dL Normal 0.60-1.20 [facility] Comment on above: Performed By: #### C UBLD, CMP, CBC #### [address] Creatinine Clr Calc Pharmacy 118.06 Normal [facility] Comment on above: Result Comment: PERF ORMED BY: [place] [address] PATHOLOGIST [employer] LARA M.D. Performed By: #### C UBLD, CMP, CBC #### [place] [address] [place] GFR/1.73 sq M.predicted MDRD (S/P/Bld) [Vol rate/Area] mL/min/{1.73_m2} Normal [facility] Comment on above: Performed By: #### C UBLD, CMP, CBC #### [place] [address] [place] Globulin (S) [Mass/Vol] 2.5 g/dL Normal T [facility] Comment on above: Performed By: #### C UBLD, CMP, CBC #### [address] Glucose [Mass/Vol] 87 mg/dL Normal 70-100 [facility] Comment on above: Result Comment: [facility] Glucose Reference Range is dependent on time and content of last meal. Glucose of more than 200 mg/dL in a nonstressed, ambulatory subject supports the diagnosis of Diabetes Mellitus. ADA recommended reference range Performed By: #### C UBLD, CMP, CBC #### [address] Potassium [Moles/Vol] 4.0 mmol/L Normal 3.5-5.1 [facility] Comment on above: Performed By: #### C UBLD, CMP, CBC #### [address] Protein [Mass/Vol] 7.2 g/dL Normal 6.4-8.9 [facility] Comment on above: Performed By: #### C UBLD, CMP, CBC #### [facility] [address] Sodium [Moles/Vol] 137 mmol/L Normal 136-145 [facility] Comment on above: Performed By: #### C UBLD, CMP, CBC #### [facility] [address] Urea nitrogen [Mass/Vol] 7 mg/dL Normal 7-25 [facility] Comment on above: Performed By: #### C UBLD, CMP, CBC #### [facility] [address] [place] [address] [place] Dipstick and Microscopicon 1 07-10-2023 Appearance (U) Clear Normal Clear [facility] Comment on above: Order Comment: Name Collection Type:: Clean-Voided Midstream Performed By: #### U HCG, ADDONUAPLUS #### [place] [address] [place] Bacteria,Urine None Seen Normal None Seen [facility] Comment on above: Order Comment: Name Collection Type:: Clean-Voided Midstream Performed By: #### U HCG, ADDONUAPLUS #### [place] [address] [place] Bilirubin,Urine Negative Normal Negative [facility] Comment on above: Order Comment: Name Collection Type:: Clean-Voided Midstream Performed By: #### U HCG, ADDONUAPLUS #### [place] [address] [place] Color (U) Light-Yellow Normal Yellow [facility] Comment on above: Order Comment: Name Collection Type:: Clean-Voided Midstream Performed By: #### U HCG, ADDONUAPLUS #### [place] [address] [place] Glucose Ql (U) Normal Normal Normal [facility] Comment on above: Order Comment: Name Collection Type:: Clean-Voided Midstream Performed By: #### U HCG, ADDONUAPLUS #### [place] [address] [place] Hyaline Casts,Urine None Normal 0-8 [facility] Comment on above: Order Comment: Name Collection Type:: Clean-Voided Midstream Performed By: #### U HCG, ADDONUAPLUS #### [address] Ketones Ql (U) Trace High Negative [facility] Comment on above: Order Comment: Name Collection Type:: Clean-Voided Midstream Performed By: #### U HCG, ADDONUAPLUS #### [address] Leukocyte esterase Test strip Ql (U) Negative Normal Negative [facility] Comment on above: Order Comment: Name Collection Type:: Clean-Voided Midstream Performed By: #### U HCG, ADDONUAPLUS #### [address] Mucus,Urine Rare Normal [facility] Comment on above: Order Comment: Name Collection Type:: Clean-Voided Midstream Performed By: #### U HCG, ADDONUAPLUS #### [address] Nitrite,Urine Negative Normal Negative [facility] Comment on above: Order Comment: Name Collection Type:: Clean-Voided Midstream Performed By: #### U HCG, ADDONUAPLUS #### [address] Occult Blood,Urine 1+ High Negative [facility] Comment on above: Order Comment: Name Collection Type:: Clean-Voided Midstream Performed By: #### U HCG, ADDONUAPLUS #### [address] pH (U) 5.5 [pH] Normal 5.0-9.0 [facility] Comment on above: Order Comment: Name Collection Type:: Clean-Voided Midstream Performed By: #### U HCG, ADDONUAPLUS #### [address] Protein,Urine Negative Normal Negative [facility] Comment on above: Order Comment: Name Collection Type:: Clean-Voided Midstream Performed By: #### U HCG, ADDONUAPLUS #### [address] RBC,Urine 5 [HPF] High 0-4 [facility] Comment on above: Order Comment: Name Collection Type:: Clean-Voided Midstream Performed By: #### U HCG, ADDONUAPLUS #### [address] Specificy Porter,Urine 1.013 Normal 1.001-1.030 [facility] Comment on above: Order Comment: Name Collection Type:: Clean-Voided Midstream Performed By: #### U HCG, ADDONUAPLUS #### [address] Squamous Epithelial Cell,Urine 3 [HPF] High 0-2 [facility] Comment on above: Order Comment: Name Collection Type:: Clean-Voided Midstream Performed By: #### U HCG, ADDONUAPLUS #### [address] Urobilinogen,Urine Normal Normal Normal [facility] Comment on above: Order Comment: Name Collection Type:: Clean-Voided Midstream Performed By: #### U HCG, ADDONUAPLUS #### [address] WBC,Urine 1 [HPF] Normal 0-4 [facility] Comment on above: Order Comment: Name Collection Type:: Clean-Voided Midstream Performed By: #### U HCG, ADDONUAPLUS #### [address] HCG,Urineon 05-10-2024 Beta HCG ( test) Ql (U) Negative Normal [facility] Comment on above: Order Comment: Name Collection Type:: Clean-Voided Midstream Result Comment: PERF ORMED BY: [place] [address] PATHOLOGIST [employer] LARA M.D. Performed By: #### U HCG, ADDONUAPLUS #### [address] HCG ( test) Ql (U)o n 05-09-2024 Interpretation and review of laboratory results Normal [facility] Preg Test, Ur Negative Negative [facility] Urinalysis macro (dipstick) panel (U)on 05-09-2024 Bilirubin, UA Negative Negative - 4(70) +++ mg/dL [facility] Blood, UA Negative Negative - 50 Todd/mcL [facility] Clarity, UA Clear [facility] Color, UA Yellow [facility] Glucose, UA Negative Negative - 1999(110) ++++ mg/dL [facility] Interpretation and review of laboratory results Normal [facility] Ketones, UA Negative Negative - 160(16) ++++ mg/dL [facility] Leukocytes, UA Negative Negative - 500+++ Mavis/mcL [facility] Nitrite, UA Negative Negative - Positive [facility] pH, UA 6 5 - 9 [facility] Protein, UA Negative Negative - 1999(20) ++++ mg/dL [facility] Spec Grav, UA 1.01 1 - 1.03 [facility] Urobilinogen, UA 1.0 0.2 - 12 mg/dL [facility] Bilirubin Test strip Ql (U)O rdered By: Shawna Healy on 05-08-2024 Bilirubin Ql (U) Negative Negative [facility] Color of Urine by AutoOrdere d By: Shawna Healy on 05-08-2024 Color (U) Light-yellow Normal Yellow [facility] Comment on above: Order Comment: Name Collection Type:: Clean-Voided Midstream Performed By: #### U A, CUU #### [facility] [address] [place] [address] Glucose [Mass/volume] in Uri ne by Test stripOrdered By: Shawna Healy on 05-08-2024 Glucose Test strip (U) [Mass/Vol] Normal mg/dL Normal [facility] Hemoglobin Test strip Ql (U) Ordered By: Shawna Healy on 05-08-2024 Hemoglobin Ql (U) Negative Negative [facility] Ketones [Presence] in Urine by Test stripOrdered By: Shawna Healy on 05-08-2024 Ketones Ql (U) Negative Normal Negative [facility] Comment on above: Order Comment: Name Collection Type:: Clean-Voided Midstream Performed By: #### U A, CUU #### [facility] [address] [place] [id number] [place] Leukocyte esterase [Presence ] in Urine by Test stripOrdered By: Shawna Healy on 05-08-2024 Leukocyte esterase Test strip Ql (U) Negative Normal Negative [facility] Comment on above: Order Comment: Name Collection Type:: Clean-Voided Midstream Performed By: #### U A, CUU #### [facility] [address] [place] [address] [place] Nitrite Test strip Ql (U)Ord ered By: Shawna Healy on 05-08-2024 Nitrite Ql (U) Negative Negative [facility] Protein Test strip (U) [Mass /Vol]Ordered By: [place] on 05-08-2024 Protein (U) [Mass/Vol] Negative Negative [facility] Specific gravity Test strip (U) [Rel density]Ordered By: Shawna Healy on 05-08-2024 Specific gravity (U) [Rel density] 1.008 1.001-1.030 [facility] Urinalysison 05-08-2024 Bilirubin,Urine Negative Normal Negative [facility] Comment on above: Order Comment: Name Collection Type:: Clean-Voided Midstream Performed By: #### U A, CUU #### [facility] [address] [place], [place] [id number] [place] Glucose Ql (U) Normal Normal Normal [facility] Comment on above: Order Comment: Name Collection Type:: Clean-Voided Midstream Performed By: #### U A, CUU #### [facility] [address] [place] [id number] [place] Nitrite,Urine Negative Normal Negative [facility] Comment on above: Order Comment: Name Collection Type:: Clean-Voided Midstream Performed By: #### U A, CUU #### [facility] [address] [place] [id number] [place] Occult Blood,Urine Negative Normal Negative [facility] Comment on above: Order Comment: Name Collection Type:: Clean-Voided Midstream Result Comment: PERF ORMED BY: [place] [address] PATHOLOGIST [employer] LARA M.D. Performed By: #### U A, CUU #### [address] Protein,Urine Negative Normal Negative [facility] Comment on above: Order Comment: Name Collection Type:: Clean-Voided Midstream Performed By: #### U A, CUU #### [address] Specificy Porter,Urine 1.008 Normal 1.001-1.030 [facility] Comment on above: Order Comment: Name Collection Type:: Clean-Voided Midstream Performed By: #### U A, CUU #### [address] Urobilinogen,Urine Normal Normal Normal [facility] Comment on above: Order Comment: Name Collection Type:: Clean-Voided Midstream Performed By: #### U A, CUU #### [address] Urine Cultureon 05-08-2024 Bacteria identified Cx Nom (U) No Growth 2 Days PERFORMED BY: [place] [address] PATHOLOGIST [employer] LARA M.D. Normal [facility] Comment on above: Performed By: #### U A, CUU #### [address] Urine appearanceOrdered By: Shawna Healy on 05-08-2024 Appearance (U) Clear Normal Clear [facility] Comment on above: Order Comment: Name Collection Type:: Clean-Voided Midstream Performed By: #### U A, CUU #### [address] Urobilinogen Test strip (U) [Mass/Vol]Ordered By: Shawna Healy on 05-08-2024 Urobilinogen (U) [Mass/Vol] Normal mg/dL Normal [facility] pH of Urine by Test stripOrd ered By: Shawna Healy on 05-08-2024 pH (U) 6.0 [pH] Normal 5.0-9.0 [facility] Comment on above: Order Comment: Name Collection Type:: Clean-Voided Midstream Performed By: #### U A, CUU #### [facility] [address] [place] [id number] [facility] Capillary Glucose POCon Glucose [Mass/Vol] 95 mg/dL Normal 55-99 [facility] Comment on above: Performed By: #### 2 [id number] #### [facility] [address] [place] [address] ED Clinical Summaryon 2023 ED Clinical Summary ED Clinical Summary [address] [address] ED Clinical Summary Person Information Name: JACK REA Sarita/[facility] Age: 29 Years : 1995 Sex: Female Language: Chilean PCP: SHAWNA HEALY CNP Marital Status: Visit Id: Visit Reason: Medical problem - minor; Dizziness; Headache; HEAD PAIN DIZZY Speciality: Acuity: 3 Enc Type: Emergency Med Service: Emergency Arrival: 05/05/2024 20:53:05 Discharge: 05/06/2024 00:17:21 LOS: 000 03:24 Checkin: 05/05/2024 20:53:05 Checkout: 05/06/2024 00:17:21 Dispo Type: Home (Routine DC) EVENTS: Event Name Event Status Request Date/Time Start Date/Time Complete Date/Time Arrive Complete 05/05/2024 20:53:05 05/05/2024 20:53:05 05/05/2024 20:53:05 Document Home Meds Request 05/05/2024 20:53:05 Triage Complete 05/05/2024 20:53:05 05/05/2024 21:07:16 05/05/2024 21:07:16 Bed Assign Complete 05/05/2024 21:01:56 05/05/2024 21:01:56 05/05/2024 21:01:56 Dr Exam Complete 05/05/2024 21:01:56 05/05/2024 21:05:09 05/05/2024 21:05:09 RN Exam Complete 05/05/2024 21:01:56 05/05/2024 21:21:02 05/05/2024 21:21:02 Registration Complete 05/05/2024 21:03:43 05/05/2024 21:03:43 05/05/2024 21:03:43 Reg Complete Request 05/05/2024 21:03:43 Reg Bed Request Complete 05/05/2024 21:03:43 05/05/2024 21:03:43 05/05/2024 21:03:43 Registration Request 05/05/2024 21:05:09 EKG Complete 05/05/2024 21:05:51 05/05/2024 21:19:09 Meds Admin Complete 05/05/2024 21:42:38 05/05/2024 22:02:07 Meds Admin Complete 05/05/2024 22:53:55 05/05/2024 23:03:32 Discharge Complete 05/06/2024 00:06:04 05/06/2024 00:17:31 05/06/2024 00:17:31 Transfer Complete 05/06/2024 00:17:31 05/06/2024 00:17:31 05/06/2024 00:17:31 ADDRESS: [place] [id number] [facility] DOC NOTES: MEDICAL INFORMATION: Prescriptions Given: [facility]ations [id number] [address] [place], [place] [id number], [phone] promethazine (promethazine 12.5 mg oral tablet) 1 Tablets By Mouth every 8 hours as needed as needed for nausea/vomiting. Refills: 0. Medications to Continue with No Changes Other Medications docusate (Colace 100 mg Cap) 1 Capsules By Mouth 2 times a day. Refills: 0. ertapenem (ertapenem 1 g Inj) 1 Gram Intravenous Piggyback every day for 5 Days. Refills: 0. naproxen (naproxen 500 mg Tab) 1 Tablets By Mouth 2 times a day for 10 Days. Refills: 0. ondansetron (ondansetron 4 mg Dis Tab) 1 Tablets By Mouth every 6 hours. Refills: 0. polyethylene glycol 3350 (Miralax 3350 17 gram packet) 17 Gram By Mouth every day. Refills: 0. tenapanor (Ibsrela 50 mg oral tablet) 1 Tablets By Mouth 2 times a day. Refills: 4. PATIENT EDUCATION INFORMATION: Instructions: Urinary Tract Infection, Adult; General Headache Without Cause Follow up: With: Address: When: SHAWNA [address] [phone] Business (1) In 3 days DIAGNOSIS: Headache; UTI (urinary tract infection) Normal [facility] ED Note-Physicianon 05-06-20 ED Note-Physician ED Note-Physician Basic Information Time Seen: Darwin Irizarry DO 05/05/2024 21:05 Chief Complaint Pt states dizziness and TORRES for the past couple of days. Has UTI that is getting IV abx for in infusion center (d/t resistence). History of Present Illness HPI: Patient is a 29-year-old female with past medical history of IBS who presents the ED for headache. Patient states for the past 2 to 3 days she has been having generalized headaches on and off as well as nausea and dizziness. She states that the dizziness is more of a lightheadedness feeling. She denies any fevers or chills. She denies any vision changes, numbness, weakness. She denies any neck or back pain. She is currently being treated for UTI and received her first dose of an IV antibiotic today after the culture revealed a resistant organism. Patient had an oral Zofran earlier in the day but denies any [id number] medications. She denies any chance of current . ROS: Pertinent review of systems conducted and is negative except as noted above. Physical exam: General: nontoxic appearing and in no distress HEENT: Mucous membranes moist Neuro: awake and alert. Cranial nerves II through XII are intact. Gross motor and sensation to all 4 extremities intact. Neck: supple, trachea midline. No meningismus. Card: Heart regular rate and rhythm no murmur Resp: Lungs clear to auscultation no wheeze or rhonchi Abd: Soft and nondistended. No tenderness to palpation with no rebound or guarding. Ext: No gross deformity or edema Physical Exam Vitals & Measurements T: 36.5 ???C(Tympanic) HR: 91(Peripheral) RR: 16 BP: 149/96 BP: 121/85(Standing) BP: 126/84(Supine) SpO2: 99% HT: 160 cm WT: 82.5 kg BMI: 32.23 Medical Decision Making MEDICAL DECISION MAKING Number and Complexity of Problems Differential Diagnosis: [] [facility] Data External documents reviewed: N/A My EKG interpretation: Noted in chart if applicable My CT interpretation: N/A My X-ray interpretation: Noted in chart if applicable My Ultrasound interpretation: N/A Decision rules/scores evaluated: N/A Discussed with: N/A Treatment and Disposition ED Course: Patient is well-appearing in no distress. She is neurologically intact to my exam. No fever and no meningismus or signs of meningitis. She received the first dose of an IV antibiotic for a UTI today. We will treat her headache with Toradol, Reglan, Benadryl, and IV magnesium. Patient had significant improvement of her headache as well as nausea and overall was feeling better here in the ED. We discussed the plan of discharge with continued oral hydration and continued follow-up for IV antibiotics. Will give her prescription for Phenergan as needed for breakthrough nausea. I encouraged her to call her primary care physician first thing on Tuesday to secure the next available follow-up appointment. We discussed return precautions. Patient is discharged in stable condition. Shared decision making: As above Code status: N/A Assessment/Plan Headache (R51.9: Headache, unspecified) UTI (urinary tract infection) (N39.0: Urinary tract infection, site not specified) Orders: diphenhydrAMINE, 25 mg = 0.5 mL, Injection, IV Push, Once, Stop date 05/05/24 21:42:00 EDT, STAT, Start date 05/05/24 21:42:00 EDT, 05/05/24 21:42:00 EDT ketorolac, 15 mg = 1 mL, Injection, IV Push, Once, Stop date 05/05/24 21:41:00 EDT, STAT, Start date 05/05/24 21:41:00 EDT, 05/05/24 21:41:00 EDT magnesium sulfate + Dextrose 5% in Water intravenous solution 100 mL, 1 gram = 100 mL, Soln-IV, IV Piggyback, Once, Stop date 05/05/24 21:42:00 EDT, STAT, Start date 05/05/24 21:42:00 EDT, 200 mL/hr, Infuse over 30 minute(s), 05/05/24 21:42:00 EDT meclizine, 25 mg = 2 tab(s), Tab, Oral, Once, Stop date 05/05/24 22:53:00 EDT, STAT, Start date 05/05/24 22:53:00 EDT, 05/05/24 22:53:00 EDT metoclopramide, 10 mg = 2 mL, Injection, IV Push, Once, Stop date 05/05/24 21:42:00 EDT, STAT, Start date 05/05/24 21:42:00 EDT, 05/05/24 21:42:00 EDT promethazine, 12.5 mg = 1 tab(s), Oral, q8hr, PRN as needed for nausea/vomiting, # 10 tab(s), Refills(s) 0, Pharmacy: [id number], 160, cm, 05/05/24 21:07:00 EDT, Height/Length Dosing, 82.5, kg, 05/05/24 21:07:00 EDT, Weight Dosing Medications Administered Given Dextrose 5% in Water intravenous solution 100 mL + magnesium additive 1 gm, IV Piggyback diphenhydrAMINE 50 mg/mL Inj, 25 mg, IV Push ketorolac 15 mg/mL Inj, 15 mg, IV Push meclizine 12.5 mg Tab, 25 mg, Oral metoclopramide 5 mg/mL Inj, 10 mg, IV Push Disposition Plan Discharge Prescription List Prescriptions promethazine 12.5 mg oral tablet, 12.5 mg= 1 tab(s), Oral, q8hr, PRN Follow-up With When Contact Information SHAWNA HEALY In 3 days [address] [facility] [address]- [phone] Business (1) Additional Instructions: Patient Education Urinary Tract Infection, Adult General Headache Without Cause Problem List/Past Medical History Ongoing (more content not included)... Normal [facility] Comment on above: Result Comment: Elec tronically Signed By: Darwin Irizarry DO\.br\Date and Time Signed: 05/06/24 00:13 EDT ED Patient Summaryon 024 ED Patient Summary ED Patient Summary [address] [address] Patient Discharge Instructions Person Information Name: JACK REA Age: 29 Years Arrival Date: 05/05/2024 20:53:05 Discharge Diagnosis: Headache; UTI (urinary tract infection) Primary Care Physician: SHAWNA HEALY CNP Provider Information Primary Provider: Darwin Irizarry DO [employer] Relationship Manager:None The exam and treatment you received in the Emergency Department were for an urgent problem and are not intended as complete care. It is important that you follow up with a doctor, nurse practitioner, or physician???s photography assistant for ongoing care. If your symptoms become worse or you do not improve as expected and you are unable to reach your usual health care provider, you should return to the Emergency Department. We are available 24 hours a day. JACK REA has been given the following list of patient education materials, prescriptions and follow-up instructions: Follow-up Instructions: With: Address: When: SHAWNA HEALY [address] [place] [id number] [phone] Business (1) In 3 days In the event that this physician does not participate in your insurance network, please consult with your insurance company to find a nearby participating provider. Patient Education Materials: Urinary Tract Infection, Adult; General Headache Without Cause A MESSAGE TO ALL PATIENTS REGARDING OPIOIDS PRESCRIPTION OPIOIDS: WHAT YOU NEED TO KNOW Prescription opioids can be used to help relieve pdjosmzn-uv-adhjvc pain and are often prescribed following a [...] as well, even when taken as directed: ??? Tolerance???meaning you might need to take more of the medication for the same pain relief ??? Physical dependence???meaning you have symptoms of withdrawal when a medication is stopped ??? Increased sensitivity to pain ??? Constipation ??? Nausea, vomiting, and dry mouth ??? Sleepiness and dizziness ??? Confusion ??? Depression ??? Low levels of testosterone that can result in lower sex drive, energy, and strength ??? Itching and sweating RISKS ARE GREATER WITH: ??? History of drug misuse, substance use disorder, or overdose ??? Mental health conditions (such as depression or anxiety) ??? Sleep apnea ??? Older age (65 years and older) ??? Avoid alcohol while taking prescription opioids. Also, unless specifically advised by your health care provider, medications to avoid include: ??? Benzodiazepines (such as Xanax or Valium) ??? Muscle relaxants (such as Soma or Flexeril) ??? Hypnotics (such as Ambien or Lunesta) ??? Other prescription opioids KNOW YOUR OPTIONS Talk to your health care provider about ways to manage your pain that don???t involve prescription opioids. Some of these options may actually work better and have fewer risks and side effects. Options may include: ??? Pain relievers such as acetaminophen, ibuprofen, and naproxen ??? Some medication that are also used for depression or seizures ??? Physical therapy and exercise ??? Cognitive behavioral therapy, a psychological, goal-directed approach, in which patients learn how to modify physical, behavioral, and emotional triggers of pain and stress. IF YOU ARE PRESCRIBED OPIOIDS FOR PAIN: ??? Never take opioids in greater amounts or more often than prescribed. ??? Follow up with your primary health care provider. o Work together to create a plan on how to manage your pain. o Talk about ways to help manage your pain that don???t involve prescription opioids. o Talk about any and all concerns and side effects. ??? Help prevent misuse and abuse o Never sell or share prescription opioids. o Never use another person???s prescription opioids. ??? Store prescription opioids in a secure place and out of reach of others (this may include visitors, children, friends, and family). ??? Safely dispose of unused prescription opioids: Find your community drug take-back program or your pharmacy mail-back program, or flush them down the toilet, following guidance from the Food and Drug Administration (www.fda.gov/Drugs/R esourcesForYou). ??? Visit www.cdc.gov/drugover dose to learn about the risks of opioids abuse and overdose. ??? If you believe you may be struggling with addiction, te (more content not included)... Normal [facility] Basophils Auto (Bld) [#/Vol] on 05-04-2024 Basophils (Bld) [#/Vol] 0.05 10*3/uL <0.11 [facility] Basophils/100 WBC Auto (Bld) on 05-04-2024 Basophils/100 WBC (Bld) 0.4 % F [facility] Blood manual differential co mment interpretation narrativeon 05-04-2024 Manual differential comment Taurus (Bld) [Interp] Auto [facility] C Urineon 05-04-2024 Bacteria identified Cx Nom (U) Microbiology PROCEDURE: Urine Culture [R1] SOURCE: U CleanCatch BODY SITE: COLLECTED DATE/TIME: 05/02/2024 19:06 EDT RECEIVED DATE/TIME: 05/02/2024 19:38 EDT START DATE/TIME: 05/02/2024 19:38 EDT FREE TEXT SOURCE: Jesica Mccabe DO, DO, Kaylinn A FINAL REPORTS Final Report [] Verified Date/Time: 05/04/2024 10:09 EDT 40,000 cfu/ml Escherichia coli ESBL SUSCEPTIBILITY RESULTS LEGEND: S=Susceptible, N/R=Not Reported, Blank=Data not available, or drug not advisable or tested, I=Intermediate, ESBL=Extended spectrum beta-lactamase, R=Resistant, TFG=Thymidine-depend ent strain, ERICA=Beta-lactamase positive, MAE=mcg/m;(mg/L), S*=Predicted susceptible interp, R*=Predicted resistant interp ECESBL Antibiotic MAE Dilutn MAE Interp Ampicillin >16 R* Ampicillin/ 16/8 I Sulbactam Aztreonam >16 ESBL Cefazolin >16 R* Cefepime >16 R* Ceftazidime 16 ESBL Ceftazidime/ <=8 S Avibactam Ceftriaxone >2 ESBL Cefuroxime >16 R* Ciprofloxacin >2 R Ertapenem <=0.5 S Gentamicin >8 R Levofloxacin >4 R Meropenem <=1 S Nitrofurantoin <=32 S Piperacillin/ <=8 S Tazobactam Tetracycline <=4 S Tobramycin >8 R Trimethoprim/ <=2/38 S Sulfa Performing Locations R1: This test was performed at: [facility], [address] [place] [address], [address]- , , Normal [facility] Comment on above: Performed By: #### 2 [id number] #### [facility] [address] [place] [address] CBC W Auto Differential pane l (Bld)on 05-04-2024 Basophils (Bld) [#/Vol] 0.05 10*3/uL Normal <0.11 [facility] Comment on above: Order Comment: Speci men Type: BLOOD SPECIMEN Ordering Facility: [facility] Address: [address] [place] [address] Performed By: #### 5 7021-8 #### [facility] CLIA [id number] [address] [place] [address] [place] Basophils/100 WBC (Bld) 0.4 % Normal C [facility] Comment on above: Order Comment: Speci men Type: BLOOD SPECIMEN Ordering Facility: [facility] Address: [address] [place] [address] Performed By: #### 5 7021-8 #### [facility] CLIA [id number] [address] [place] [address] [place] Differential cell count method Nom (Bld) Auto Normal [facility] Comment on above: Order Comment: Speci men Type: BLOOD SPECIMEN Ordering Facility: [facility] Address: [address] [place] [address] Performed By: #### 5 7021-8 #### [facility] CLIA [id number] [address] [place] [address] [place] Eosinophils (Bld) [#/Vol] 0.13 10*3/uL Normal <0.46 [facility] Comment on above: Order Comment: Speci men Type: BLOOD SPECIMEN Ordering Facility: [facility] Address: [address] [place] [address] Performed By: #### 5 7021-8 #### [facility] CLIA [id number] [address] [place] [address] [place] Eosinophils/100 WBC (Bld) 1.1 % Normal [facility] Comment on above: Order Comment: Speci men Type: BLOOD SPECIMEN Ordering Facility: [facility] Address: [address] [place] [address] Performed By: #### 5 7021-8 #### [facility] CLIA [id number] [address] [place] [address] [place] Erythrocyte distribution width (RBC) [Ratio] 12.1 % Normal 11.5-15.0 [facility] Comment on above: Order Comment: Speci men Type: BLOOD SPECIMEN Ordering Facility: [facility] Address: [address] [place] [address] Performed By: #### 5 7021-8 #### [facility] CLIA [id number] [address] [place] [address] [place] Hematocrit (Bld) [Volume fraction] 41.3 % Normal 36.0-46.0 [facility] Comment on above: Order Comment: Speci men Type: BLOOD SPECIMEN Ordering Facility: [facility] Address: [address] [place] [address] Performed By: #### 5 7021-8 #### [facility] CLIA [id number] [address] [place] [address] [place] Hemoglobin (Bld) [Mass/Vol] 14.3 g/dL Normal 11.5-15.5 [facility] Comment on above: Order Comment: Speci men Type: BLOOD SPECIMEN Ordering Facility: [facility] Address: [address] [place] [address] Performed By: #### 5 7021-8 #### [facility] CLIA [id number] [address] [place] [address] [place] Immature granulocytes (Bld) [#/Vol] 0.04 10*3/uL Normal <0.10 [facility] Comment on above: Order Comment: Speci men Type: BLOOD SPECIMEN Ordering Facility: [facility] Address: [address] [place] [address] Performed By: #### 5 7021-8 #### [facility] CLIA [id number] [address] [place] [address] [place] Immature granulocytes/100 WBC (Bld) 0.3 % Normal [facility] Comment on above: Order Comment: Speci men Type: BLOOD SPECIMEN Ordering Facility: [facility] Address: [address] [place] [address] Performed By: #### 5 7021-8 #### [facility] CLIA [id number] [address] [place] [address] [place] Lymphocytes (Bld) [#/Vol] 3.21 10*3/uL Normal 1.00-4.00 [facility] Comment on above: Order Comment: Speci men Type: BLOOD SPECIMEN Ordering Facility: [facility] Address: [address] [place] [address] Performed By: #### 5 7021-8 #### [facility] CLIA [id number] [address] [place] [address] [place] Lymphocytes/100 WBC (Bld) 27.3 % Normal [facility] Comment on above: Order Comment: Speci men Type: BLOOD SPECIMEN Ordering Facility: [facility] Address: [address] [place] [address] Performed By: #### 5 7021-8 #### [facility] CLIA [id number] [address] [place] [address] [place] MCH (RBC) [Entitic mass] 30.5 pg Normal 26.0-34.0 [facility] Comment on above: Order Comment: Speci men Type: BLOOD SPECIMEN Ordering Facility: [facility] Address: [address] [place] [address] Performed By: #### 5 7021-8 #### [facility] CLIA [id number] [address] [place] [address] [place] MCHC (RBC) [Mass/Vol] 34.6 g/dL Normal 30.5-36.0 [facility] Comment on above: Order Comment: Speci men Type: BLOOD SPECIMEN Ordering Facility: [facility] Address: [address] [place] [address] Performed By: #### 5 7021-8 #### [facility] CLIA [id number] [address] [place] [address] [place] MCV (RBC) [Entitic vol] 88.1 fL Normal 80.0-100.0 C [facility] Comment on above: Order Comment: Speci men Type: BLOOD SPECIMEN Ordering Facility: [facility] Address: [address] [place] [address] Performed By: #### 5 7021-8 #### [facility] CLIA [id number] [address] [place] [address] [place] Monocytes (Bld) [#/Vol] 0.72 10*3/uL Normal <0.87 [facility] Comment on above: Order Comment: Speci men Type: BLOOD SPECIMEN Ordering Facility: [facility] Address: [address] [place] [address] Performed By: #### 5 7021-8 #### [facility] CLIA [id number] [address] [place] [address] [place] Monocytes/100 WBC (Bld) 6.1 % Normal C [facility] Comment on above: Order Comment: Speci men Type: BLOOD SPECIMEN Ordering Facility: [facility] Address: [address] [place] [address] Performed By: #### 5 7021-8 #### [facility] CLIA [id number] [address] [place] [address] [place] Neutrophils (Bld) [#/Vol] 7.59 10*3/uL High 1.45-7.50 [facility] Comment on above: Order Comment: Speci men Type: BLOOD SPECIMEN Ordering Facility: [facility] Address: [address] [place] [address] Performed By: #### 5 7021-8 #### [facility] CLIA [id number] [address] [place] [address] [place] Neutrophils/100 WBC (Bld) 64.8 % Normal [facility] Comment on above: Order Comment: Speci men Type: BLOOD SPECIMEN Ordering Facility: [facility] Address: [address] [place] [address] Performed By: #### 5 7021-8 #### [facility] CLIA [id number] [address] [place] [address] [place] Nucleated RBC (Bld) [#/Vol] 10*3/uL Normal <0.01 [facility] Comment on above: Order Comment: Speci men Type: BLOOD SPECIMEN Ordering Facility: [facility] Address: [address] [place] [address] Performed By: #### 5 7021-8 #### [facility] CLIA [id number] [address] [place] [address] [place] Nucleated RBC/100 WBC (Bld) [Ratio] 0.0 /100 WBC Normal [facility] Comment on above: Order Comment: Speci men Type: BLOOD SPECIMEN Ordering Facility: [facility] Address: [address] [place] [address] Performed By: #### 5 7021-8 #### [facility] CLIA [id number] [address] [place] [address] [place] Platelet mean volume (Bld) [Entitic vol] 9.9 fL Normal 9.0-12.7 [facility] Comment on above: Order Comment: Speci men Type: BLOOD SPECIMEN Ordering Facility: [facility] Address: [address] [place] [address] Performed By: #### 5 7021-8 #### [facility] CLIA [id number] [address] [place] [address] [place] Platelets (Bld) [#/Vol] 241 10*3/uL Normal 150-400 [facility] Comment on above: Order Comment: Speci men Type: BLOOD SPECIMEN Ordering Facility: [facility] Address: [address] [place] [address] Performed By: #### 5 7021-8 #### [facility] CLIA [id number] [address] [place], [place] [address] [place] RBC (Bld) [#/Vol] 4.69 10*6/uL Normal 3.90-5.20 [facility] Comment on above: Order Comment: Speci men Type: BLOOD SPECIMEN Ordering Facility: [facility] Address: [address] [place] [address] Performed By: #### 5 7021-8 #### [facility] CLIA [id number] [address] [place] [address] [place] WBC (Bld) [#/Vol] 11.74 10*3/uL High 3.70-11.00 [facility] Comment on above: Order Comment: Speci men Type: BLOOD SPECIMEN Ordering Facility: [facility] Address: [address] [place] [address] Performed By: #### 5 7021-8 #### [facility] CLIA [id number] [address] [place] [address] [place] Comprehensive metabolic 2000 panelon 05-04-2024 Albumin [Mass/Vol] 4.4 g/dL Normal 3.9-4.9 [facility] Comment on above: Order Comment: Speci men Type: BLOOD SPECIMEN Ordering Facility: [facility] Address: [address] [place] [address] Performed By: #### 1 9123-9, [id number], 47949-0 #### [facility] CLIA [id number] [address] [place], [place] [address] [place] ALP [Catalytic activity/Vol] 78 U/L Normal 34-123 [facility] Comment on above: Order Comment: Speci men Type: BLOOD SPECIMEN Ordering Facility: [facility] Address: [address] [place] [address] Performed By: #### 1 9123-9, [id number], 03279-8 #### [facility] CLIA [id number] [address] [place], [place] [address] [place] ALT [Catalytic activity/Vol] 15 U/L Normal 7-38 [facility] Comment on above: Order Comment: Speci men Type: BLOOD SPECIMEN Ordering Facility: [facility] Address: [address] [place] [address] Performed By: #### 1 9123-9, [id number], 72774-0 #### [facility] CLIA [id number] [address] [place] [address] [place] Anion gap [Moles/Vol] 13 mmol/L Normal 8-15 [facility] Comment on above: Order Comment: Speci men Type: BLOOD SPECIMEN Ordering Facility: [facility] Address: [address] [place] [address] Performed By: #### 1 9123-9, [id number], 22177-1 #### [facility] CLIA [id number] [address] [place] [address] [place] AST [Catalytic activity/Vol] 17 U/L Normal 13-35 [facility] Comment on above: Order Comment: Speci men Type: BLOOD SPECIMEN Ordering Facility: [facility] Address: [address] [place] [address] Performed By: #### 1 9123-9, [id number], 45111-2 #### [facility] CLIA [id number] [address] [place] [address] [place] Bilirubin [Mass/Vol] 0.5 mg/dL Normal 0.2-1.3 [facility] Comment on above: Order Comment: Speci men Type: BLOOD SPECIMEN Ordering Facility: [facility] Address: [address] [place] [address] Performed By: #### 1 9123-9, [id number], 38444-8 #### [facility] CLIA [id number] [address] [place], [place] [address] [place] Calcium [Mass/Vol] 9.1 mg/dL Normal 8.5-10.2 [facility] Comment on above: Order Comment: Speci men Type: BLOOD SPECIMEN Ordering Facility: [facility] Address: [address] [place] [address] Performed By: #### 1 9123-9, [id number], 93422-2 #### [facility] CLIA [id number] [address] [place] [address] [place] Chloride [Moles/Vol] 105 mmol/L Normal 98-107 [facility] Comment on above: Order Comment: Speci men Type: BLOOD SPECIMEN Ordering Facility: [facility] Address: [address] [place] [address] Performed By: #### 1 9123-9, [id number], #### [facility] CLIA [id number] [address] [place] [address] [place] CO2 [Moles/Vol] 21 mmol/L Low 22-30 [facility] Comment on above: Order Comment: Speci men Type: BLOOD SPECIMEN Ordering Facility: [facility] Address: [address] [place] [address] Performed By: #### 1 9123-9, [id number], #### [facility] CLIA [id number] [address] [place] [address] [place] Creatinine [Mass/Vol] 0.67 mg/dL Normal 0.58-0.96 [facility] Comment on above: Order Comment: Speci men Type: BLOOD SPECIMEN Ordering Facility: [facility] Address: [address] [place] [address] Performed By: #### 1 9123-9, [id number], 74069-2 #### [facility] CLIA [id number] [address] [place] [address] [place] Creatinine and Glomerular filtration rate.predicted panel (S/P/Bld) 121 mL/min/1.73m??? Normal >=60 [facility] Comment on above: Order Comment: Speci men Type: BLOOD SPECIMEN Ordering Facility: [facility] Address: [address] [place] [address] Result Comment: Shabnam mated Glomerular Filtration Rate (eGFR) is calculated using the 2020 CKD-EPI creatinine equation. This equation utilizes serum creatinine, sex, and age as parameters. The creatinine assay has traceable calibration to isotope dilution-mass spectrometry. Refer to KDIGO guidelines for clinical interpretation. In patients with unstable renal function, e.g. those with acute kidney injury, the eGFR may not accurately reflect actual GFR. Performed By: #### 1 9123-9, [id number], 97520-8 #### [facility] CLIA [id number] [address] [place] [address] [place] Glucose [Mass/Vol] 93 mg/dL Normal 74-99 [facility] Comment on above: Order Comment: Dean dixon Type: BLOOD SPECIMEN Ordering Facility: [facility] Address: [address] [place] [address] Result Comment: The [place] [employer] (ADA) provides guidance for cutoff values for fasting glucose and random glucose. The ADA defines fasting as no caloric intake for at least 8 hours. Fasting plasma glucose results between 100 to 125 mg/dL indicate increased risk for diabetes (prediabetes). Fasting plasma glucose results greater than or equal to 126 mg/dL meet the criteria for diagnosis of diabetes. In the absence of unequivocal hyperglycemia, results should be confirmed by repeat testing. In a patient with classic symptoms of hyperglycemia or hyperglycemic crisis, random plasma glucose results greater than or equal to 200 mg/dL meet the criteria for diagnosis of diabetes. Reference: Standards of Medical Care in Diabetes 2016, [place] [employer] Association. Diabetes Care. 2016.39(Suppl 1). Performed By: #### 1 9123-9, [id number], 53373-7 #### [facility] CLIA [id number] [address] [place] [address] [place] Potassium [Moles/Vol] 3.7 mmol/L Normal 3.7-5.1 [facility] Comment on above: Order Comment: Dean dixon Type: BLOOD SPECIMEN Ordering Facility: [facility] Address: [address] [place] [address] Performed By: #### 1 9123-9, [id number], 60745-6 #### [facility] CLIA [id number] [address] [place] [address] [place] Protein [Mass/Vol] 6.5 g/dL Normal 6.3-8.0 [facility] Comment on above: Order Comment: Speci men Type: BLOOD SPECIMEN Ordering Facility: [facility] Address: [address] [place] [address] Performed By: #### 1 9123-9, [id number], 42793-3 #### [facility] CLIA [id number] [address] [place] [address] [place] Sodium [Moles/Vol] 139 mmol/L Normal 136-144 [facility] Comment on above: Order Comment: Speci men Type: BLOOD SPECIMEN Ordering Facility: [facility] Address: [address] [place] [address] Performed By: #### 1 9123-9, [id number], 85342-4 #### [facility] CLIA [id number] [address] [place] [address] [place] Urea nitrogen [Mass/Vol] 7 mg/dL Normal 7-21 [facility] Comment on above: Order Comment: Speci men Type: BLOOD SPECIMEN Ordering Facility: [facility] Address: [address] [place] [address] Performed By: #### 1 9123-9, [id number], 35969-9 #### [facility] CLIA [id number] [address] [place] [address] [place] [id number] 05-04-2024 ECG01 Ventricular Rate : 79 BPM Atrial Rate : 79 BPM P-R Interval : 138 ms QRS Duration : 86 ms Q-T Interval : 376 ms QTC Calculation(Bazett) : 431 ms Calculated P Halstad : 28 degrees Calculated R Halstad : 59 degrees Calculated T Halstad : 32 degrees NORMAL SINUS RHYTHM NORMAL ECG NOTE: PLEASE SEE PHYSICIAN'S NOTE FROM E.D. VISIT Confirmed by Anthony CHANG, JESÚS ([id number]), video effects editor NANCY RIVERA ([id number]) on 05/10/2024 10:37:45 PM NAME : JACK REA PID : [id number] : 1995 Gender : Female Race : ORD : Procedure Date : May 04 2024 19:29:23 Edit Date : May 10 2024 22:37:46 Diagnosis: NORMAL SINUS RHYTHM NORMAL ECG NOTE: PLEASE SEE PHYSICIAN'S NOTE FROM E.D. VISIT Confirmed by Anthony CHANG, JESÚS ([id number]), video effects editor NANCY RIVERA ([id number]) on 05/10/2024 10:37:45 PM Test Reason : Location : 2 : [facility] Overread By : Anthony CHANG ERIC Edited By : NANCY RIVERA Referred By : , Acquired by : Sowmya LOPEZ [facility] ED Triage Noteon 05-04-2024 ED Triage Note HNO ID: [id number] Author: JERAMIE EVANS DO Service: Emergency Medicine Author Type: Physician Type: ED Triage Notes Filed: 05/04/2024 19:23 Note Text: ED INTAKE NOTE Patient Name: Jack Rea Service Date: 05/04/24 BRIEF HPI: This is a 29 year old female who presents to the ED with: Multiple complaints 29-year-old female presenting, primarily for chest pain which has been present for the last several days. Also has paresthesias to both upper extremities. BRIEF EXAM: NAD Awake and Alert Non labored breathing No focal neurological deficits INITIAL WORKUP AND DECISION MAKING: Orders Placed This Encounter XR CHEST 2V FRONTAL/LAT Complete Blood Count and Differential Comp Metabolic Panel Magnesium Blood High Sensitivity Troponin T with Reflex for ED Chest Pain HCG Urine - ED (POC) ECG Complete W Interpretation and Hand to Attending for review Provider examination performed via virtual platform with assistance from bedside clinician. SIGNATURE: Jeramie Evans DO Normal [facility] Eosinophils/100 WBC Auto (Bl d)on 05-04-2024 Eosinophils/100 WBC (Bld) 1.1 % [facility] Erythrocyte distribution wid th Auto (RBC) [Ratio]on 05-04-2024 Erythrocyte distribution width (RBC) [Ratio] 12.1 % 11.5-15.0 [facility] HIGH SENSITIVITY TROPONIN T (INITIAL)on 05-04-2024 Troponin T.cardiac High sensitivity method [Mass/Vol] <6 Normal <12 [facility] Comment on above: Order Comment: Speci men Type: BLOOD SPECIMEN Ordering Facility: [facility] Address: [address] [place] [address] Performed By: #### 1 9123-9, [id number], 46558-7 #### [facility] CLIA [id number] [address] [place] [address] [place] [address] [place] Hematocrit Auto (Bld) [Volum e fraction]on 05-04-2024 Hematocrit (Bld) [Volume fraction] 41.3 % 36.0-46.0 [facility] Hemoglobin [Mass/volume] in Bloodon 05-04-2024 Hemoglobin (Bld) [Mass/Vol] 14.3 g/dL 11.5-15.5 [facility] - Chemistry and C hemistry - challengeon 05-04-2024 Albumin [Mass/Vol] 4.4 g/dL 3.9-4.9 [facility] ALP [Catalytic activity/Vol] 78 U/L 34-123 [facility] ALT [Catalytic activity/Vol] 15 U/L 7-38 [facility] AST [Catalytic activity/Vol] 17 U/L 13-35 [facility] Bilirubin [Mass/Vol] 0.5 mg/dL 0.2-1.3 [facility] Calcium [Mass/Vol] 9.1 mg/dL 8.5-10.2 [facility] Chloride [Moles/Vol] 105 mmol/L 98-107 [facility] CO2 [Moles/Vol] 21 mmol/L Low 22-30 [facility] Creatinine [Mass/Vol] 0.67 mg/dL 0.58-0.96 [facility] Glucose [Mass/Vol] 93 mg/dL 74-99 [facility] Comment on above: The [place] Diab[employer] Association (ADA) provides guidance for cutoff values for fasting glucose and random glucose. The ADA defines fasting as no caloric intake for at least 8 hours. Fasting plasma glucose results between 100 to 125 mg/dL indicate increased risk for diabetes (prediabetes).Fasting plasma glucose results greater than or equal to 126 mg/dL meet the criteria for diagnosis of diabetes. In the absence of unequivocal hyperglycemia, results should be confirmed by repeat testing. In a patient with classic symptoms of hyperglycemia or hyperglycemic crisis, random plasma glucose results greater than or equal to 200 mg/dL meet the criteria for diagnosis of diabetes.Reference: Standards of Medical Care in Diabetes 2016, [place] [employer]. Diabetes Care. 2016.39(Suppl 1). Magnesium [Mass/Vol] 2.2 mg/dL 1.7-2.3 [facility] Potassium [Moles/Vol] 3.7 mmol/L 3.7-5.1 [facility] Sodium [Moles/Vol] 139 mmol/L 136-144 [facility] Urea nitrogen [Mass/Vol] 7 mg/dL 7 [facility] - Hematology and Cell countson 05-04-2024 Eosinophils (Bld) [#/Vol] 0.13 10*3/uL <0.46 [facility] Immature granulocytes (Bld) [#/Vol] 0.04 10*3/uL <0.10 [facility] Immature granulocytes/100 WBC (Bld) 0.3 % [facility] Leukocytes [#/volume] correc gemini for nucleated erythrocytes in Blood by Automated counon 05-04-2024 WBC corrected for nucl RBC Auto (Bld) [#/Vol] 11.74 k/uL High 3.70-11.00 [facility] Lymphocytes Auto (Bld) [#/Vo l]on 05-04-2024 Lymphocytes (Bld) [#/Vol] 3.21 10*3/uL 1.00-4.00 [facility] Lymphocytes/100 WBC Auto (Bl d)on 05-04-2024 Lymphocytes/100 WBC (Bld) 27.3 % [facility] MCH Auto (RBC) [Entitic mass ]on 05-04-2024 MCH (RBC) [Entitic mass] 30.5 pg 26.0-34.0 [facility] MCHC Auto (RBC) [Mass/Vol]on 05-04-2024 MCHC (RBC) [Mass/Vol] 34.6 g/dL 30.5-36.0 [facility] MCV Auto (RBC) [Entitic vol] on 05-04-2024 MCV (RBC) [Entitic vol] 88.1 fL 80.0-100.0 [facility] Magnesium SerPl-mCncon 05-04 Magnesium [Mass/Vol] 2.2 mg/dL Normal 1.7-2.3 [facility] Comment on above: Order Comment: Speci men Type: BLOOD SPECIMEN Ordering Facility: [facility] Address: [address] [place] [address] Performed By: #### 1 9123-9, [id number], 85772-4 #### [facility] CLIA [id number] [address] [place] [address] [place] Monocytes Auto (Bld) [#/Vol] on 05-04-2024 Monocytes (Bld) [#/Vol] 0.72 10*3/uL <0.87 [facility] Monocytes/100 WBC Auto (Bld) on 05-04-2024 Monocytes/100 WBC (Bld) 6.1 % [facility] Neutrophils Auto (Bld) [#/Vo l]on 05-04-2024 Neutrophils (Bld) [#/Vol] 7.59 10*3/uL High 1.45-7.50 [facility] Neutrophils/100 WBC Auto (Bl d)on 05-04-2024 Neutrophils/100 WBC (Bld) 64.8 % [facility] No Panel Informationon 05-04 Estimated GFR (CKD-EPI) 121 mL/min/1.73m??? >=6 0 [facility] Comment on above: Estimated Glomerular Filtration Rate (eGFR) is calculated using the 2020 CKD-EPI creatinine equation. This equation utilizes serum creatinine, sex, and age as parameters. The creatinine assay has traceable calibration to isotope dilution-mass spectrometry. Refer to KDIGO guidelines for clinical interpretation. In patients with unstable renal function, e.g. those with acute kidney injury, the eGFR may not accurately reflect actual GFR. Troponin T Hi Sens Cardiac Interven <6 ng/L <12 [facility] Nucleated RBC Auto (Bld) [#/ Vol]on 05-04-2024 Nucleated RBC (Bld) [#/Vol] 10*3/uL <0.01 [facility] Nucleated erythrocytes [Pres ence] in Blood by Automated counton 05-04-2024 Nucleated RBC Auto Ql (Bld) 0.0 /100{WBC} [facility] Platelet mean volume Auto (B ld) [Entitic vol]on 05-04-2024 Platelet mean volume (Bld) [Entitic vol] 9.9 fL 9.0-12.7 [facility] Platelets Auto (Bld) [#/Vol] on 05-04-2024 Platelets (Bld) [#/Vol] 241 10*3/uL 150-400 [facility] Protein [Mass/volume] in Ser um or Plasmaon 05-04-2024 Protein [Mass/Vol] 6.5 g/dL 6.3-8.0 [facility] RBC Auto (Bld) [#/Vol]on RBC (Bld) [#/Vol] 4.69 10*6/uL 3.90-5.20 [facility] Serum or plasma anion gap de terminationon 05-04-2024 Anion gap [Moles/Vol] 13 mmol/L 8-15 [facility] XR CHEST 2V FRONTAL/LATon XR CHEST 2V FRONTAL/LAT * * *Final Repor t* * * DATE OF EXAM: May 04 2024 8:17PM EGX [id number] - XR CHEST 2V FRONTAL/LAT / PROCEDURE REASON: Chest Pain * * * * Physician Interpretation * * * * EXAMINATION: CHEST RADIOGRAPH (2 VIEW FRONTAL and LATERAL) CLINICAL HISTORY: Chest Pain MQ: [id number]_6 EXAM DATE/TIME: 05/04/2024 8:17 PM COMPARISON: No relevant prior studies available. RESULT: Lines, tubes, and devices: None. Lungs and pleura: No consolidation. No pleural effusion. No pneumothorax. Cardiomediastinal silhouette: Normal cardiomediastinal silhouette. Bones and soft tissues: Unremarkable. IMPRESSION: No acute radiographic abnormality. President + Publisher: FRENCH Transcribe Date/Time: May 04 2024 8:22P Dictated by : BRAIN MAIN MD This examination was interpreted and the report reviewed and electronically signed by: AYLEEN ROYAL MD on May 04 2024 8:24PM EST [id number] Normal [facility] CT Abdomen/Pelvis w/ Contras ton 05-03-2024 CT Abdomen/Pelvis w/ Contrast Exam Date/Time: 05/02/2024 20:31 EDT Reason for Exam: ABDOMINAL PAIN, ACUTE, NONLOCALIZED;Other (please specify) Report IMPRESSION: Possible bilateral mural hyperenhancement of the ureters, which can be seen with infectious processes. Correlate with urinalysis. No CT evidence for pyelonephritis. Otherwise unremarkable CT of the abdomen/pelvis. No acute fracture or traumatic malalignment of the lumbar spine. HISTORY: Bilateral pelvic pain with cramping and nausea. Low back pain. TECHNIQUE: CT of the abdomen and pelvis was performed using standard technique with intravenous contrast, scanning from just above the dome of the diaphragm to the symphysis pubis. Including delayed images through the kidneys. Including sagittal and coronal reconstructions on both phases. Including dedicated reconstructions lumbar spine. Unless otherwise stated, incidental findings identified in this report do not require routine follow-up imaging. All CT scans at this facility use dose modulation, iterative reconstruction, and/or weight based dosing when appropriate to reduce radiation dose to as low as reasonably achievable. COMPARISON: 03/20/2024. RESULT: Liver: No mass or lesion. Biliary: Gallbladder unremarkable. No biliary ductal dilation. Pancreas: No mass or duct dilation. Spleen: No mass or splenomegaly. Adrenals: No mass. Kidneys: No calculus or hydronephrosis. No suspicious renal lesions. Possible bilateral mural hyperenhancement of the ureters, which can be seen with infectious processes. Symmetric enhancement of the kidneys without CT evidence for pyelonephritis. Delayed phase images with excreted contrast bilaterally. GI tract: No dilation or wall thickening. Appendix unremarkable. Mild diverticulosis without evidence for diverticulitis. Scattered colonic feces. Lymph nodes: No abdominal or pelvic lymphadenopathy. Mesentery/Peritoneum /Retroperitoneum: No ascites or mass. Report Vasculature: The celiac axis and SMA are patent. The portal vein and branches, splenic vein, SMV, and hepatic veins are patent. No abdominal aortic or iliac artery aneurysm. Pelvis: No significant free fluid. IUD, uterus otherwise grossly unremarkable. Adnexal regions unremarkable. Bladder unremarkable. Bones: No acute osseous findings. See below for lumbar findings. Soft tissues: Unremarkable. Lower thorax: Unremarkable. Lumbar spine: Counting reference of L5-S1 is the last well-formed disc space. No traumatic malalignment. No evidence for acute fracture. No destructive osseous process. Small Schmorl's nodes. No high-grade bony canal or foraminal narrowing. Ordering Provider: Connor Zimmerman FINAL REPORT Dictated: 05/03/2024 10:07 am Humberto Horne MD Signed (Electronic Signature): 05/03/2024 10:07 am Signed by: Humberto Horne MD Transcribed by: DAVID Technologist: NISHANT Technical Comments GFR (mL/min/1/73m2) n/a-age Contrast: Isovue 300 Contrast amount in ml's: 100 Normal [facility] ED Note-Physicianon 05-03-20 ED Note-Physician ED Note-Physician Basic Information Time Seen: Connor Zimmerman PA-C. 05/02/2024 19:00 Chief Complaint Pt reports bilateral pelvic pain and cramping. Abd and back pain. Pt reports she thought she was constipated and took otc meds with no relief. nausea.denies urinary s/s. denies fevers/chills. started feeling light headed today. Has IUD. hx kidney stones History of Present Illness Patient is a 29-year-old female that presents today for evaluation of her bilateral back and abdominal pain it has been going on for the last 24 hours. Patient does state that she has a history of kidney stones but this feels slightly different. Patient states that she thought she was constipated so she took some OTC medications without relief. She has had some nausea and vomiting but denies any fevers, bodies, chills. She started to feel lightheaded today because of the pain. She denies any chance of and states that she had IUD placed. She has been taking OTC Tylenol ibuprofen without symptomatic relief. She also does note that she has had some increased urinary frequency but denies dysuria or urgency. Review of Systems No other aggravating or relieving factors no other associated symptoms no other prior treatments or complaints. Family: Reviewed and noncontributory Social: lives at home Review of systems negative unless otherwise specified in the HPI. Physical Exam Vitals & Measurements T: 37.0 ???C(Oral) HR: 86(Monitored) RR: 16 BP: 126/76 SpO2: 98% HT: 160.02 cm WT: 82.5 kg BMI: 32.22 General: The patient appears well and in no apparent distress. Patient is resting comfortably on cart. Skin: Warm, dry, no pallor noted. Head: Normocephalic, atraumatic Neck: No JVD Eye: PERRLA, EOMI ENT: Moist mucus membranes Cardiovascular: Regular rate and rhythm. Normal peripheral perfusion Respiratory: CTA bilaterally. No respiratory distress no accessory muscle use no obvious audible wheezing Chest Wall: no deformity Musculoskeletal: normal ROM, no deformity, no swelling GI: Soft no obvious distention. No rebound or rigidity. No guarding. Bilateral flank tenderness. Diffuse lower abdominal tenderness. Neurological: A&O moves all extremities equal strength and symmetry Psychiatric: Cooperative and appropriate Medical Decision Making Patient is a 29-year-old female presents today for evaluation of bilateral back and abdominal pain that is been going on for the last 24 hours. She has a history of kidney stones but states that this feels slightly different. She thought she was constipated so she took some OTC medication without relief. Has had some associated nausea and vomiting but denies any other systemic signs or symptoms. On exam patient is afebrile and nontoxic-appearing. She does have bilateral flank tenderness as well as diffuse lower abdominal tenderness. Labs do demonstrate mild leukocytosis at 13.5. UA demonstrates evidence of UTI with positive leuks and WBCs. CT of the abdomen and pelvis demonstrates an intrauterine device seen in situ. No abdominal process identified. No abnormal fecal loading of the colon. No abdominal aortic aneurysm or dissection. Patient was given a dose of Toradol and Zofran with initial improvement but required morphine and another dose of Zofran here in the ED. Given her signs and symptoms as well as workup she likely has UTI leading to her pain. She will be started on Keflex and was given a dose here in the ED. Patient does express concerns for constipation and therefore will be given Colace and MiraLAX as well as magnesium citrate. She will be discharged home with close follow-up with her PCP to ensure she is getting better. We discussed if she has new or worsening symptoms she should promptly return to the ED for reevaluation. Return to ED precautions were reviewed with the patient at length. Assessment/Plan Abdominal pain (R10.9: Unspecified abdominal pain) Constipation (K59.00: Constipation, unspecified) Nausea & vomiting (R11.2: Nausea with vomiting, unspecified) UTI (urinary tract infection) (N39.0: Urinary tract infection, site not specified) Orders: acetaminophen-hydroc odone, 1 tab(s), Oral, q6hr for pain for 3 day(s), 8 tab(s), Refill(s) 0, [facility][id number], 160, cm, 05/02/24 19:02:00 EDT, Height/Length Dosing, 82.5, kg, 05/02/24 19:02:00 EDT, Weight Dosing cephalexin, 500 mg = 1 cap(s), Cap, Oral, Once, Stop date 05/02/24 22:43:00 EDT, STAT, Start date 05/02/24 22:43:00 EDT, 05/02/24 22:43:00 EDT cephalexin, 500 mg = 1 cap(s), Oral, q12hr, X 7 day(s), # 14 cap(s), Refills(s) 0, Pharmacy: [facility] #[id number], 160, cm, 05/02/24 19:02:00 EDT, Height/Length Dosing, 82.5, kg, 05/02/24 19:02:00 EDT, Weight Dosing docusate, 100 mg = 1 cap(s), Oral, BID, # 20 cap(s), Refills(s) 0, Pharmacy: [facility] #[id number], 160, cm, 05/02/24 19:02:00 EDT, Height/Length Dosing, 82.5, kg, 05/02/24 19:02:00 EDT, Weight Dosing ketorolac, 30 mg = 1 mL, Injection, IV Push, Once, Stop date 05/02/24 19:27:0 (more content not included)... Normal [facility] Comment on above: Result Comment: Elec tronically Signed By: oCnnor Zimmerman PA-C\.br\Date and Time Signed: 05/03/24 00:44 EDT\.br\Electronically Co-Signed By: Jesica Mccabe DO.br\Date and Time Co-Signed: 05/03/24 01:20 EDT No Panel Informationon 05-03 ACINETOBACTER BAUMANII 0 NO [facility] ACINETOBACTER BAUMANII Not detected [facility] JULIANN ALBICANS, PARAPSILOSIS, TROPICALIS 0 [facility] JULIANN ALBICANS, PARAPSILOSIS, TROPICALIS Not detected [facility] JULIANN GLABRATA 0 [facility] JULIANN GLABRATA Not detected [facility] JULIANN KRUSEI 0 [facility] JULIANN KRUSEI Not detected [facility] CITROBACTER FREUNDII 0 [facility] CITROBACTER FREUNDII Not detected NO [facility] ENTEROBACTER AEROGENES, CLOACAE 0 [facility] ENTEROBACTER AEROGENES, CLOACAE Not detected [facility] ENTEROCOCCUS FAECALIS, FAECIUM 0 [facility] ENTEROCOCCUS FAECALIS, FAECIUM Not detected [facility] ESCHERICHIA COLI 0 [facility] ESCHERICHIA COLI Not detected [facility] KLEBSIELLA PNEUMONIAE, OXYTOCA 0 [facility] KLEBSIELLA PNEUMONIAE, OXYTOCA Not detected [facility] MORGANELLA MORGANII 0 [facility] MORGANELLA MORGANII Not detected [facility] PROTEUS MIRABILIS, VULGARIS 0 [facility] PROTEUS MIRABILIS, VULGARIS Not detected [facility] PSEUDOMONAS AERUGINOSA 0 NO [facility] PSEUDOMONAS AERUGINOSA Not detected [facility] SERRATIA MARCESCENS 0 [facility] SERRATIA MARCESCENS Not detected [facility] STAPHYLOCOCCUS AUREUS 0 [facility] STAPHYLOCOCCUS AUREUS Not detected [facility] STAPHYLOCOCCUS EPIDERMIDIS, HAEMOLYTICUS, LUGDUNENSIS, SAPROPHYTICUS (URINA 0 [facility] STAPHYLOCOCCUS EPIDERMIDIS, HAEMOLYTICUS, LUGDUNENSIS, SAPROPHYTICUS (URINA Not detected [facility] STREPTOCOCCUS AGALACTIAE (GROUP B STREP) 0 [facility] STREPTOCOCCUS AGALACTIAE (GROUP B STREP) Not detected [facility] STREPTOCOCCUS PYOGENES (GROUP A STREP) 0 [facility] STREPTOCOCCUS PYOGENES (GROUP A STREP) Not detected [facility] BMPon 05-02-2024 Anion gap [Moles/Vol] 12 mmol/L Normal 6-16 [facility] Comment on above: Performed By: #### 2 [id number] #### [facility] [address] [place] [address] Calcium [Mass/Vol] 9.2 mg/dL Normal 8.9-11.1 [facility] Comment on above: Performed By: #### 2 [id number] #### [facility] [address] [place] [address] Chloride [Moles/Vol] 105 mmol/L Normal 101-111 [facility] Comment on above: Performed By: #### 2 [id number] #### [facility] [address] [place] [address] CO2 [Moles/Vol] 26 mmol/L Normal 21-31 [facility] Comment on above: Performed By: #### 2 [id number] #### [facility] [address] [place] [address] Creatinine [Mass/Vol] 0.7 mg/dL Normal 0.5-1.3 [facility] Comment on above: Performed By: #### 2 [id number] #### [facility] [address] [place] [address] Glucose [Mass/Vol] 94 mg/dL Normal 55-199 [facility] Comment on above: Performed By: #### 2 [id number] #### [facility] [address] [place] [address] Potassium [Moles/Vol] 3.6 mmol/L Normal 3.5-5.3 [facility] Comment on above: Performed By: #### 2 [id number] #### [facility] [address] [place] [address] Sodium [Moles/Vol] 139 mmol/L Normal 135-145 [facility] Comment on above: Performed By: #### 2 [id number] #### [facility] [address] [place] [address] Urea nitrogen [Mass/Vol] 8 mg/dL Normal 5-21 [facility] Comment on above: Performed By: #### 2 [id number] #### [facility] [address] [place] [address] Urea nitrogen/Creatinine [Mass ratio] 11 No Units Normal 10-20 [facility] Comment on above: Performed By: #### 2 [id number] #### [facility] [address] [place] [address] CBC w/ Auto Diffon 10--202 4 Basophils/100 WBC (Bld) 0.4 % Normal 0.0-2.0 [facility] Comment on above: Performed By: #### 2 [id number] #### [facility] [address] [place] [address] Basophils/Leukocytes Auto (Bld) [Pure # fraction] 0.1 E9/L Normal 0.0-0.2 [facility] Comment on above: Performed By: #### 2 [id number] #### [facility] [address] [place] [address] Eosinophils (Bld) [#/Vol] 0.1 E9/L Normal 0.0-0.5 [facility] Comment on above: Performed By: #### 2 [id number] #### [facility] [address] [place] [address] Eosinophils/100 WBC (Bld) 0.7 % Normal 0.0-8.0 [facility] Comment on above: Performed By: #### 2 [id number] #### [facility] [facility] [address] [place] [address] Erythrocyte distribution width (RBC) [Ratio] 12.8 % Normal 10.9-14.2 [facility] Comment on above: Performed By: #### 2 [id number] #### [facility] [address] [place] [address] Hematocrit (Bld) [Volume fraction] 41.7 % Normal 34.0-46.0 [facility] Comment on above: Performed By: #### 2 [id number] #### [facility] [address] [place] [address] Hemoglobin (Bld) [Mass/Vol] 14.3 g/dL Normal 12.0-16.0 [facility] Comment on above: Performed By: #### 2 [id number] #### [facility] [address] [place] [address] Lymphocytes (Bld) [#/Vol] 2.2 E9/L Normal 1.0-4.0 [facility] Comment on above: Performed By: #### 2 [id number] #### [facility] [address] [place] [address] Lymphocytes/100 WBC (Bld) 16.6 % Normal 14.0-50.0 [facility] Comment on above: Performed By: #### 2 [id number] #### [facility] [address] [place] [address] MCH (RBC) [Entitic mass] 30.3 pg Normal 27.0-34.0 [facility] Comment on above: Performed By: #### 2 [id number] #### [facility] [address] [place] [address] MCHC (RBC) [Mass/Vol] 34.3 g/dL Normal 31.4-36.0 [facility] Comment on above: Performed By: #### 2 [id number] #### [facility] [address] [place] [address] MCV (RBC) [Entitic vol] 88.3 fL Normal 80.0-100.0 [facility] Comment on above: Performed By: #### 2 [id number] #### [facility] [address] [place] [address] Monocytes (Bld) [#/Vol] 0.8 E9/L Normal 0.2-1.0 [facility] Comment on above: Performed By: #### 2 [id number] #### [facility] [address] [place] [address] Neutrophils (Bld) [#/Vol] 10.3 E9/L High 2.0-7.5 [facility] Comment on above: Performed By: #### 2 [id number] #### [facility] [address] [place] [address] Neutrophils/100 WBC (Bld) 76.3 % High 36.0-75.0 [facility] Comment on above: Performed By: #### 2 [id number] #### [facility] [address] [place] [address] Platelet mean volume (Bld) [Entitic vol] 8.4 fL Normal 6.4-10.8 [facility] Comment on above: Performed By: #### 2 [id number] #### [facility] [address] [place] [address] Platelets (Bld) [#/Vol] 229.0 E9/L Normal 150.0-500.0 [facility] Comment on above: Performed By: #### 2 [id number] #### [facility] [address] [place] [address] RBC (Bld) [#/Vol] 4.7 E12/L Normal 4.3-5.9 [facility] Comment on above: Performed By: #### 2 [id number] #### [facility] [address] [place] [address] WBC corrected for nucl RBC Auto (Bld) [#/Vol] 13.5 E9/L High 4.0-11.0 [facility] Comment on above: Performed By: #### 2 [id number] #### [facility] [address] [place] [address] CHEMISTRYOrdered By: SYSTEM SYSTEM on 05-02-2024 Albumin [Mass/Vol] 4.4 g/dL Normal 3.3 - 5.0 gm/dL Rem[facility] Chem Albumin/Globulin [Mass ratio] 1.8 {ratio} Normal 1.1 - 2.2 [facility] Chem ALP [Catalytic activity/Vol] 75 [iU]/d Normal 21 - 98 Int._Unit/L Remisol Chem ALT No additional P-5'-P [Catalytic activity/Vol] 12 [iU]/d Normal 6 - 46 Int._Unit/L Remisol Chem Anion gap [Moles/Vol] 12 mmol/L Normal 6 - 16 mEq/L R emisol Chem AST [Catalytic activity/Vol] 13 [iU]/d Normal 5 - 43 Int._Unit/L Remisol Chem Bilirubin [Mass/Vol] 0.5 mg/dL Normal 0.0 - 1 .1 mg/dL Remisol Chem Bilirubin.direct [Mass/Vol] 0.1 mg/dL Normal 0.0 - 0.4 mg/dL Remisol Chem Bilirubin.indirect [Mass or moles/Vol] 0.4 mg/dL Normal 0.1 - 0.9 mg/dL [facility] Chem Calcium [Mass/Vol] 9.2 mg/dL Normal 8.9 - 11. 1 mg/dL [facility] Chem Chloride [Moles/Vol] 105 mmol/L Normal 101 - 1 11 mmol/L [facility] Chem CO2 [Moles/Vol] 26 mmol/L Normal 21 - 31 mmol/L [facility] Chem Creatinine [Mass/Vol] 0.7 mg/dL Normal 0.5 - 1.3 mg/dL [facility] Chem eGFR 119 mL/min/1.73 m2 Normal >=59mL/mi n/1 .73 m2 Rem[facility] Chem Globulin (S) [Mass/Vol] 2.4 g/dL Normal 1.4 - 4.0 gm/dL [facility] Chem Glucose [Mass/Vol] 94 mg/dL Normal 55 - 199 mg/dL [facility] Chem Lipase [Catalytic activity/Vol] 27 U/L Normal 13 - 58 unit/L [facility] Chem Potassium [Moles/Vol] 3.6 mmol/L Normal 3.5 - 5.3 mmol/L Rem[facility] Chem Protein [Mass/Vol] 6.8 g/dL Normal 6.0 - 7.8 gm/dL [facility] Chem Sodium [Moles/Vol] 139 mmol/L Normal 135 - 145 mmol/L Remisol Chem Urea nitrogen [Mass/Vol] 8 mg/dL Normal 5 - 21 mg/d L Rem[facility] Chem Urea nitrogen/Creatinine [Mass ratio] 11 mg/mg Normal 10 - 20 Remisol Chem ED Clinical Summaryon 2023 ED Clinical Summary ED Clinical Summary [address] [address] ED Clinical Summary Person Information Name: JACK REA [place] Age: 29 Years : 1995 Sex: Female Language: Chilean PCP: SHAWNA HEALY CNP Marital Status: Visit Id: Visit Reason: Abdominal pain; Nausea; Pelvic pain; DIZZY, ABD PAIN, BACK PAIN, CONSTIPATION Speciality: Acuity: 3 Enc Type: Emergency Med Service: Emergency Arrival: 05/02/2024 18:53:57 Discharge: 05/02/2024 23:15:32 LOS: 000 04:22 Checkin: 05/02/2024 18:53:57 Checkout: 05/02/2024 23:15:32 Dispo Type: Home (Routine DC) EVENTS: Event Name Event Status Request Date/Time Start Date/Time Complete Date/Time Arrive Complete 05/02/2024 18:53:57 05/02/2024 18:53:57 05/02/2024 18:53:57 Document Home Meds Request 05/02/2024 18:53:57 Triage Complete 05/02/2024 18:53:57 05/02/2024 19:02:47 05/02/2024 19:02:47 Bed Assign Complete 05/02/2024 18:57:11 05/02/2024 18:57:11 05/02/2024 18:57:11 Dr Exam Complete 05/02/2024 18:57:11 05/02/2024 19:00:32 05/02/2024 19:00:32 RN Exam Complete 05/02/2024 18:57:11 05/02/2024 20:17:07 05/02/2024 20:17:07 Registration Complete 05/02/2024 19:00:32 05/02/2024 19:00:58 05/02/2024 19:00:58 Dr Exam Complete 05/02/2024 19:00:56 05/02/2024 19:00:56 05/02/2024 19:00:56 Reg Complete Request 05/02/2024 19:00:58 Reg Bed Request Complete 05/02/2024 19:00:58 05/02/2024 19:00:58 05/02/2024 19:00:58 Pending Labs Complete 05/02/2024 19:04:27 05/02/2024 19:24:26 Lab Complete 05/02/2024 19:04:27 05/02/2024 19:23:23 Urine Collect Complete 05/02/2024 19:04:27 05/02/2024 19:23:23 Pending Labs Inlab 05/02/2024 19:24:26 05/02/2024 19:24:26 Lab Inlab 05/02/2024 19:24:26 05/02/2024 19:24:26 CT Complete 05/02/2024 19:27:40 05/02/2024 19:53:23 05/02/2024 20:31:43 Pending Labs Complete 05/02/2024 19:27:40 05/02/2024 20:00:31 Lab Complete 05/02/2024 19:27:40 05/02/2024 20:00:31 Meds Admin Complete 05/02/2024 19:27:40 05/02/2024 20:13:08 Pending Labs Complete 05/02/2024 19:34:59 05/02/2024 19:34:59 05/02/2024 20:00:31 Lab Complete 05/02/2024 19:34:59 05/02/2024 19:34:59 05/02/2024 20:00:31 Pending Labs Complete 05/02/2024 19:39:42 05/02/2024 19:39:42 05/02/2024 19:39:43 Pending Labs Complete 05/02/2024 19:41:11 05/02/2024 19:41:11 05/02/2024 19:41:11 Meds Admin Complete 05/02/2024 22:12:51 05/02/2024 22:20:33 Meds Admin Complete 05/02/2024 22:43:52 05/02/2024 23:12:52 Discharge Complete 05/02/2024 22:46:20 05/02/2024 23:15:42 05/02/2024 23:15:42 Transfer Complete 05/02/2024 23:15:42 05/02/2024 23:15:42 05/02/2024 23:15:42 ADDRESS: [place] [id number] PHYS DOC NOTES: MEDICAL INFORMATION: Prescriptions Given: New Medications [id number], [address] [place], [place] [id number], [phone] acetaminophen-hydroc odone ([place]ascus 325 mg-5 mg oral tablet) 1 Tablets By Mouth every 6 hours as needed for pain for 3 Days. Refills: 0. cephalexin (cephalexin 500 mg Cap) 1 Capsules By Mouth every 12 hours for 7 Days. Refills: 0. docusate (Colace 100 mg Cap) 1 Capsules By Mouth 2 times a day. Refills: 0. naproxen (naproxen 500 mg Tab) 1 Tablets By Mouth 2 times a day for 10 Days. Refills: 0. ondansetron (ondansetron 4 mg Dis Tab) 1 Tablets By Mouth every 6 hours. Refills: 0. polyethylene glycol 3350 (Miralax 3350 17 gram packet) 17 Gram By Mouth every day. Refills: 0. Medications to Continue with No Changes Other Medications busPIRone (busPIRone 5 mg Tab) 1 Tablets By Mouth 3 times a day. Refills: 0. tenapanor (Ibsrela 50 mg oral tablet) 1 Tablets By Mouth 2 times a day. Refills: 4. PATIENT EDUCATION INFORMATION: Instructions: Abdominal Pain, Adult; Urinary Tract Infection, Adult Follow up: With: Address: When: Lev LACKEY [address] [facility], [address] [address] Business (1) In 3 days 05/05/2024 With: Address: When: SHAWNA NIRAJ [address] [place] [address] [place] [phone] Business (1) In 3 days 05/05/2024 DIAGNOSIS: Abdominal pain; Constipation; Nausea & vomiting; UTI (urinary tract infection) Normal [facility] ED Patient Summaryon ED Patient Summary ED Patient Summary [address] [address] Patient Discharge Instructions Person Information Name: JACK REA Age: 29 Years Arrival Date: 05/02/2024 18:53:57 Discharge Diagnosis: Abdominal pain; Constipation; Nausea & vomiting; UTI (urinary tract infection) Primary Care Physician: SHAWNA HEALY CNP Provider Information Primary Provider: Jesica Mccabe DO [employer] Relationship Manager:Connor Zimmerman PA-C. The exam and treatment you received in the Emergency Department were for an urgent problem and are not intended as complete care. It is important that you follow up with a doctor, nurse practitioner, or physician???s photography assistant for ongoing care. If your symptoms become worse or you do not improve as expected and you are unable to reach your usual health care provider, you should return to the Emergency Department. We are available 24 hours a day. JACK REA has been given the following list of patient education materials, prescriptions and follow-up instructions: Follow-up Instructions: With: Address: When: Lev LACKEY [address] [place] [address], [address], [address] [address] [place] (1) In 3 days 05/05/2024 With: Address: When: SHAWNA HEALY [address] [facility] [place] [address] [place] [phone] [facility] (1) In 3 days 05/05/2024 In the event that this physician does not participate in your insurance network, please consult with your insurance company to find a nearby participating provider. Patient Education Materials: Abdominal Pain, Adult; Urinary Tract Infection, Adult A MESSAGE TO ALL PATIENTS REGARDING OPIOIDS PRESCRIPTION OPIOIDS: WHAT YOU NEED TO KNOW Prescription opioids can be used to help relieve rczmddqj-wf-tynaga pain and are often prescribed following a [...] as well, even when taken as directed: ??? Tolerance???meaning you might need to take more of the medication for the same pain relief ??? Physical dependence???meaning you have symptoms of withdrawal when a medication is stopped ??? Increased sensitivity to pain ??? Constipation ??? Nausea, vomiting, and dry mouth ??? Sleepiness and dizziness ??? Confusion ??? Depression ??? Low levels of testosterone that can result in lower sex drive, energy, and strength ??? Itching and sweating RISKS ARE GREATER WITH: ??? History of drug misuse, substance use disorder, or overdose ??? Mental health conditions (such as depression or anxiety) ??? Sleep apnea ??? Older age (65 years and older) ??? Avoid alcohol while taking prescription opioids. Also, unless specifically advised by your health care provider, medications to avoid include: ??? Benzodiazepines (such as Xanax or Valium) ??? Muscle relaxants (such as Soma or Flexeril) ??? Hypnotics (such as Ambien or Lunesta) ??? Other prescription opioids KNOW YOUR OPTIONS Talk to your health care provider about ways to manage your pain that don???t involve prescription opioids. Some of these options may actually work better and have fewer risks and side effects. Options may include: ??? Pain relievers such as acetaminophen, ibuprofen, and naproxen ??? Some medication that are also used for depression or seizures ??? Physical therapy and exercise ??? Cognitive behavioral therapy, a psychological, goal-directed approach, in which patients learn how to modify physical, behavioral, and emotional triggers of pain and stress. IF YOU ARE PRESCRIBED OPIOIDS FOR PAIN: ??? Never take opioids in greater amounts or more often than prescribed. ??? Follow up with your primary health care provider. o Work together to create a plan on how to manage your pain. o Talk about ways to help manage your pain that don???t involve prescription opioids. o Talk about any and all concerns and side effects. ??? Help prevent misuse and abuse o Never sell or share prescription opioids. o Never use another person???s prescription opioids. ??? Store prescription opioids in a secure place and out of reach of others (this may include visitors, children, friends, and family). ??? Safely dispose of unused prescription opioids: Find your community drug take-back program or your pharmacy mail-back program, or flush them down the toilet, following guidance from the Food and Drug A (more content not included)... [facility] Extra Blueon 05-02-2024 Tube Collected Plasma Yes Invalid Interpretation Code [facility] Comment on above: Performed By: #### 1 [id number] #### [facility] [address] [place] [address] HEMATOLOGYOrdered By: SYSTEM SYSTEM on 05-02-2024 Basophils/100 WBC (Bld) 0.4 % Normal 0.0 - 2.0 % Remisol Heme Basophils/Leukocytes Auto (Bld) [Pure # fraction] 0.1 E9/L Normal 0.0 - 0.2 E9/L [facility] Heme Eosinophils (Bld) [#/Vol] 0.1 E9/L Normal 0.0 - 0.5 E9/L [facility] Heme Eosinophils/100 WBC (Bld) 0.7 % Normal 0.0 - 8.0 % [facility] Heme Erythrocyte distribution width (RBC) [Ratio] 12.8 % Normal 10.9 - 14.2 % [facility] Hematocrit (Bld) [Volume fraction] 41.7 % Normal 34.0 - 46.0 % [facility]e Hemoglobin (Bld) [Mass/Vol] 14.3 g/dL Normal 12.0 - 16.0 gm/dL [facility] Lymphocytes (Bld) [#/Vol] 2.2 E9/L Normal 1.0 - 4.0 E9/L [facility] Lymphocytes/100 WBC (Bld) 16.6 % Normal 14.0 - 50.0 % [facility]e MCH (RBC) [Entitic mass] 30.3 pg Normal 27. 0 - 34.0 pg [facility] Heme MCHC (RBC) [Mass/Vol] 34.3 g/dL Normal 31.4 - 36.0 gm/dL [facility] Heme MCV (RBC) [Entitic vol] 88.3 fL Normal 80.0 - 100.0 fL [facility] Monocytes (Bld) [#/Vol] 0.8 E9/L Normal 0.2 - 1.0 E9/L [facility]e Monocytes/100 WBC (Bld) 6.0 % Normal 4.0 - 14.0 % [facility] Neutrophils (Bld) [#/Vol] 10.3 E9/L High 2.0 - 7.5 E9/L [facility] Heme Neutrophils/100 WBC (Bld) 76.3 % High 36.0 - 75.0 % [facility] Platelet mean volume (Bld) [Entitic vol] 8.4 fL Normal 6.4 - 10.8 fL [facility] Platelets (Bld) [#/Vol] 229.0 E9/L Normal 150. 0 - 500.0 E9/L [facility] Heme RBC (Bld) [#/Vol] 4.7 E12/L Normal 4.3 - 5.9 E12/L [facility] WBC corrected for nucl RBC Auto (Bld) [#/Vol] 13.5 E9/L High 4.0 - 11.0 E9/L [facility] Heme Hep Func Panelon 05-02-2024 Albumin [Mass/Vol] 4.4 g/dL Normal 3.3-5.0 [facility] Comment on above: Performed By: #### 2 [id number] #### [facility] [address] [place] [address] Albumin/Globulin (S) [Mass conc ratio] 1.8 Normal 1.1-2.2 [facility] Comment on above: Performed By: #### 2 [id number] #### [facility] [address] [place] [address] ALP [Catalytic activity/Vol] 75 Int._Unit/L Normal 21-98 [facility] Comment on above: Performed By: #### 2 [id number] #### [facility] [address] [place] [address] ALT No additional P-5'-P [Catalytic activity/Vol] 12 Int._Unit/L Normal 6-46 [facility] Comment on above: Performed By: #### 2 [id number] #### [facility] [address] [place] [address] AST [Catalytic activity/Vol] 13 Int._Unit/L Normal 5-43 [facility] Comment on above: Performed By: #### 2 [id number] #### [facility] [address] [place] [address] Bilirubin [Mass/Vol] 0.5 mg/dL Normal 0.0-1.1 [facility] Comment on above: Performed By: #### 2 [id number] #### [facility] [address] [place] [address] Bilirubin.direct [Mass/Vol] 0.1 mg/dL Normal 0.0-0.4 [facility] Comment on above: Performed By: #### 2 [id number] #### [facility] [address] [place] [address] Bilirubin.indirect [Mass or moles/Vol] 0.4 mg/dL Normal 0.1-0.9 [facility] Comment on above: Performed By: #### 2 [id number] #### [facility] [address] [place] [address] Globulin (S) [Mass/Vol] 2.4 g/dL Normal 1.4-4.0 [facility] Comment on above: Performed By: #### 2 [id number] #### [facility] [address] [place] [address] Protein [Mass/Vol] 6.8 g/dL Normal 6.0-7.8 [facility] Comment on above: Performed By: #### 2 [id number] #### [facility] [address] [place] [address] Lipase Levelon 05-02-2024 Lipase [Catalytic activity/Vol] 27 U/L Normal 13-58 [facility] Comment on above: Performed By: #### 2 [id number] #### [facility] [address] [place] [address] SEROLOGYOrdered By: Melanie Wilson on 05-02-2024 HCG.beta subunit (U) [Moles/Vol] Negative Normal [facility] [place] S[place] U BetaHcg Qualon 05-02-2024 HCG.beta subunit (U) [Moles/Vol] Negative Normal [facility] Comment on above: Performed By: #### 2 [id number] #### [facility] [address] [place] [address] UA with Cult Rflxon 05-02-20 24 Bacteria Auto Ql (U) Trace Normal Trace [facility] Comment on above: Performed By: #### 4 [id number] #### [facility] [address] [place] [address] Bilirubin Ql (U) Negative Normal Negative [facility] Comment on above: Performed By: #### 4 [id number] #### [facility] [address] [place] [address] Clarity (U) Clear Normal Clear [facility] Comment on above: Performed By: #### 4 [id number] #### [facility] [address] [place] [address] Color (U) Colorless Abnormal Yellow [facility] Comment on above: Result Comment: Micr oscopic readings are only performed on those samples that meet specific criteria set forth by [facility]. Performed By: #### 4 [id number] #### [facility] [address] [place] [address] Glucose Ql (U) Negative Normal Negative [place] Comment on above: Performed By: #### 4 [id number] #### [facility] [address] [place] [address] Hemoglobin Auto test strip (U) [Mass/Vol] 3+ mg/dL Abnormal Negative [facility] Comment on above: Performed By: #### 4 [id number] #### [facility] [address] [place] [address] Ketones Auto test strip Ql (U) Negative Normal Negative [facility] Comment on above: Performed By: #### 4 [id number] #### [facility] [address] [place] [address] Leukocyte esterase Auto test strip Ql (U) 75 Mavis/uL Abnormal Negative [facility] Comment on above: Performed By: #### 4 [id number] #### [facility] [address] [place] [address] Mucus Auto Ql (U) Negative Normal Negative [facility] Comment on above: Performed By: #### 4 [id number] #### [facility] [address] [place] [address] Nitrite Auto test strip Ql (U) Negative Normal Negative [facility] Comment on above: Performed By: #### 4 [id number] #### [facility] [address] [place] [address] pH (U) 6.5 [pH] Invalid Interpretation Code 5.0-9.0 [facility] Comment on above: Performed By: #### 4 [id number] #### [facility] [address] [place] [address] Protein Ql (U) Negative Normal Negative [facility] Comment on above: Performed By: #### 4 [id number] #### [facility] [address] [place] [address] RBC Ql (U) 4-20 Abnormal 0-3 [facility] Comment on above: Performed By: #### 4 [id number] #### [facility] [address] [place], [place] [id number] Specific gravity (U) [Rel density] 1.003 Invalid Interpretation Code 1.005-1.030 [facility] Comment on above: Performed By: #### 4 [id number] #### [facility] [address] [place] [address] Urobilinogen (U) [Mass/Vol] Negative Normal Negative [facility] Comment on above: Performed By: #### 4 [id number] #### [facility] [address] [place] [address] WBC Auto (Urine sed) [#/Area] 31-75 Abnormal 0-5 [facility] Comment on above: Performed By: #### 4 [id number] #### [facility] [address] [place] [address] Type of Urine collection method Clean Catch Normal [facility] Comment on above: Performed By: #### 4 [id number] #### [facility] [address] [place] [address] URINALYSISOrdered By: SYSTEM SYSTEM on 05-02-2024 Bacteria Auto Ql (U) Trace /HPF Normal Trace/HPF [facility] UA Auto SS Bilirubin Ql (U) Negative Normal Negativemg/ d L [facility] UA Auto SS Clarity (U) Clear (05/02/24 7:06 PM) Normal Clear [facility] UA Auto SS Color (U) Colorless 1 *ABN* (05/02/24 7:06 PM) Invalid Interpretation Code Yellow [facility] UA Auto SS Comment on above: Interpretive Data: M icroscopic readings are only performed on those samples that meet specific criteria set forth by [facility]. Glucose Ql (U) Negative Normal Negativemg/d L [facility] UA Auto SS Hemoglobin Auto test strip (U) [Mass/Vol] 3+ mg/dL Invalid Interpretation Code Negativemg/d L [facility] UA Auto SS Ketones Auto test strip Ql (U) Negative Normal Negativemg/d L [facility] UA Auto SS Leukocyte esterase Auto test strip Ql (U) 75 Mavis/uL Mavis/uL Invalid Interpretation Code NegativeLeu/ uL [facility] UA Auto SS Mucus Auto Ql (U) Negative Normal Negativegr ad ed/LPF [facility] UA Auto SS Nitrite Auto test strip Ql (U) Negative Normal Negativemg/d L [facility] UA Auto SS pH (U) 6.5 *NA* (05/02/24 7:06 PM) Invalid Interpretation Code 5.0 - 9.0 [facility] UA Auto SS Protein Ql (U) Negative Normal Negativemg/d L [facility] UA Auto SS RBC Ql (U) 4-20 graded/HPF Invalid Interpretation Code 0-3graded/HP F [facility] UA Auto SS Specific gravity (U) [Rel density] 1.003 *NA* (05/02/24 7:06 PM) Invalid Interpretation Code 1.005 - 1.030 [facility] UA Auto SS Urobilinogen (U) [Mass/Vol] Negative Normal Negativemg/d L [facility] UA Auto SS WBC Auto (Urine sed) [#/Area] 31-75 graded/HPF Invalid Interpretation Code 0-5graded/HP F [facility] UA Auto SS URINALYSISOrdered By: Karina Kruger on 05-02-2024 UA Spec Desc Clean Catch (05/02/24 7:06 PM) Normal [facility] UA Auto SS eGFRon 05-02-2024 eGFR 119 mL/min/1.73 m2 Normal >=59 [facility] Comment on above: Performed By: #### 1 [id number] #### [facility] [address] [place] [address] Laboratory - Chemistry and C hemistry - challengeon 05-01-2024 Bilirubin Ql (U) Negative Negative [facility] Glucose [Mass/Vol] Negative Negative [facility] Ketones Ql (U) Negative Negative [facility] pH (U) 6 [pH] 5.0 - 6.0 [facility] Specific gravity (U) [Rel density] 1.02 1.001 - 1.035 [facility] Urobilinogen (U) [Mass/Vol] Negative 0.2 - 1.0 [facility] Laboratory - Hematology and Cell countson 05-01-2024 Hemoglobin Ql (U) Negative Negative [facility] Laboratory - Urinalysison Nitrite Ql (U) Negative Negative [facility] Protein Ql (U) Negative Negative [facility] No Panel Informationon 05-01 Interpretation and review of laboratory results Normal [facility] LEUKOCYTES Negative Negative [facility] CARMEN w/Reflex if POSon 2023 Nuclear Ab Ql (S) Negative Invalid Interpretation Code Negative [facility] Comment on above: Result Comment: Perf ormed at: [facility] [address] [id number] PhD Fadumo Peraza Performed By: #### 1 [id number] #### [facility] Laboratory [address] [place] [address] Lyme Abs rfxon 04-23-2024 B. burgdorferi IgG+IgM IA Ql (S) Negative Invalid Interpretation Code Negative [facility] Comment on above: Result Comment: Lyme antibodies not detected. Reflex testing is not indicated. No laboratory evidence of infection with B. burgdorferi (Lyme disease). Negative results may occur in patients recently infected (less than or equal to 14 days) with B. burgdorferi. If recent infection is suspected, repeat testing on a new sample collected in 7 to 14 days is recommended. Performed at: [facility] [address] [id number] PhD Fadumo Peraza Performed By: #### 4 [id number] #### [facility] [address] [place] [address] RF Quanton 04-23-2024 Rheumatoid factor Qn [IU]/mL Invalid Interpretation Code <14.0 [facility] Comment on above: Result Comment: Perf ormed at: [facility] [address] [id number] PhD Fadumo Peraza Performed By: #### 1 [id number] #### [facility] [address] [place] [address] Borrelia burgdorferi IgG+IgM Ab [Presence] in Serum by Immunoassayon 04-21-2024 B. burgdorferi IgG+IgM IA Ql (S) Negative Negative [facility] CHEMISTRYOrdered By: SYSTEM SYSTEM on 04-21-2024 CRP [Mass/Vol] 0.6 mg/dL Normal <=1.9mg/dL Remisol Ch em Iron [Mass/Vol] 99 ug/dL Normal 35 - 153 mcg/dL Remisol Chem Iron binding capacity [Mass/Vol] 382 ug/dL Normal 250 - 400 mcg/dL Remisol Chem CRPon 04-21-2024 CRP [Mass/Vol] 0.6 mg/dL Normal <=1.9 [place] Comment on above: Performed By: #### 2 [id number] #### [facility] [address] [place] [address] Ironon 04-21-2024 Iron [Mass/Vol] 99 microgram/dL Normal 35-153 [facility] Comment on above: Performed By: #### 2 [id number] #### [facility] [address] [place] [address] Iron binding capacity [Mass/ volume] in Serum or Plasmaon 04-21-2024 Iron binding capacity [Mass/Vol] 382 microgram/dL 250-400 [facility] Laboratory - Chemistry and C hemistry - challengeOrdered By: SYSTEM SYSTEM on 04-21-2024 Transferrin [Mass/Vol] 273 mg/dL 200-370 Re [facility] Chem Laboratory - Hematology and Cell countsOrdered By: Martina Zamarripa on 04-21-2024 ESR (Bld) [Velocity] 10 mm/h 0-34 [facility] HemeAutoSS No Panel Informationon 04-21 C-Reactive Protein, Quantitative 0.6 mg/dL <=1.9 [facility] Iron Level 99 microgram/dL 35-153 [facility] Sed Rate Automatedon 024 ESR (Bld) [Velocity] 10 mm/h Normal 0-34 [facility] Comment on above: Performed By: #### 1 [id number] #### [facility] [address] [place] [address] Serum or plasma free cefurox niurka measurement (mass/volume)on 04-21-2024 Cefuroxime free [Mass/Vol] Negative Negative [facility] Serum or plasma rheumatoid f actor measurement (units/volume)on 04-21-2024 Rheumatoid factor Qn <10.0 International_Unit/m L <14.0 [facility] TIBC Calculatedon 04-21-2024 Iron binding capacity [Mass/Vol] 382 microgram/dL Normal 250-400 [facility] Comment on above: Performed By: #### 1 [id number] #### [facility] [address] [place] [address] Transferrin [Mass/Vol] 273 mg/dL Normal 200-370 [facility] Comment on above: Performed By: #### 1 [id number] #### [facility] [address] [place] [address] Ambulatory Visit Summaryon 1 Ambulatory Visit Summary Ambulatory Visi t Summary FADI READANIA Cedeno :1995 Visit Date:04/05/2024 Ambulatory Visit Instructions Your Diagnosis Irritable bowel syndrome with constipation Bloating Generalized abdominal pain Nausea and vomiting Your Care Team Attending Physician - Oralia BURKS, Juliana Pruett Primary Care Physician - SHAWNA HEALY CNP This Is Your Medications List busPIRone [...] abdominal pain Nausea and vomiting Pickup at [facility] #[id number] New tenapanor (Ibsrela 50 mg oral tablet) 1 Tablets By Mouth 2 times a day Irritable bowel syndrome with constipation Bloating Generalized abdominal pain Nausea and vomiting Refills: 4 Pickup at [facility] #[id number] Pharmacy Information [facility] #[id number]: [address] [place], [place] [id number] [phone] Allergies Augmentin Bactrim Septra (hives, vomiting) Problems [...] you for choosing us for your care. Normal [facility] Gastroenterology Office/Clin ic Noteon 04-05-2024 Gastroenterology Office/Clinic [...] TID, # 90 tab(s), Refills(s) 0, Pharmacy: [facility] #[id number], 160, cm, 04/05/24 9:37:00 EDT, Height/Length Dosing, 83.7, kg, 04/05/24 9:37:00 EDT, Weight Dosing tenapanor, 50 mg = 1 tab(s), Oral, BID, # 30 tab(s), Refills(s) 4, Pharmacy: [facility] #[id number], 160, cm, 04/05/24 9:37:00 EDT, Height/Length Dosing, 83.7, kg, 04/05/24 9:37:00 EDT, Weight Dosing 2. Bloating (R14.0: Abdominal distension (gaseous)) Ordered: busPIRone, 5 mg = 1 tab(s), Oral, TID, # 90 tab(s), Refills(s) 0, Pharmacy: [facility] #[id number], 160, cm, 04/05/24 9:37:00 EDT, Height/Length Dosing, 83.7, kg, 04/05/24 9:37:00 EDT, Weight Dosing tenapanor, 50 mg = 1 tab(s), Oral, BID, # 30 tab(s), Refills(s) 4, Pharmacy: [facility] #[id number], 160, cm, 04/05/24 9:37:00 EDT, Height/Length Dosing, 83.7, kg, 04/05/24 9:37:00 EDT, Weight Dosing 3. Generalized abdominal pain (R10.84: Generalized abdominal pain) Ordered: busPIRone, 5 mg = 1 tab(s), Oral, TID, # 90 tab(s), Refills(s) 0, Pharmacy: [facility] #[id number], 160, cm, 04/05/24 9:37:00 EDT, Height/Length Dosing, 83.7, kg, 04/05/24 9:37:00 EDT, Weight Dosing tenapanor, 50 mg = 1 tab(s), Oral, BID, # 30 tab(s), Refills(s) 4, Pharmacy: [facility] #[id number], 160, cm, 04/05/24 9:37:00 EDT, Height/Length Dosing, 83.7, kg, 04/05/24 9:37:00 EDT, Weight Dosing 4. Nausea and vomiting (R11.2: Nausea with vomiting, unspecified) Ordered: busPIRone, 5 mg = 1 tab(s), Oral, TID, # 90 tab(s), Refills(s) 0, Pharmacy: [facility] #[id number], 160, cm, 04/05/24 9:37:00 EDT, Height/Length Dosing, 83.7, kg, 04/05/24 9:37:00 EDT, Weight Dosing linaclotide, 145 mcg = 1 cap(s), Oral, Daily, # 30 cap(s), Refills(s) 5, Pharmacy: [facility] #[id number], 160, cm, 01/10/24 13:34:00 EDT, Height/Length Dosing, 85, kg, 01/10/24 13:34:00 EDT, Weight Dosing tenapanor, 50 mg = 1 tab(s), (more content not included)... Normal [facility] Comment on above: Result Comment: Elec tronically Signed By: Oralia BURKS, Juliana Pruett\.br\Date and Time Signed: 04/05/24 09:54 EDT Alanine aminotransferase [En zymatic activity/volume] in Serum or PlasmaOrdered By: Shawna Healy on 03-26-2024 ALT [Catalytic activity/Vol] 18 U/L Normal 7-52 [facility] Comment on above: Performed By: #### U A, CUU #### [facility] [address] [place] [address] [place] Albumin [Mass/volume] in Ser um or Plasma by Bromocresol green (BCG) dye binding methoOrdered By: Shawna Healy on 03-26-2024 Albumin BCG dye [Mass/Vol] 4.6 g/dL 3.5-5.7 [facility] Alkaline phosphatase [Enzyma tic activity/volume] in Serum or PlasmaOrdered By: Shawna Healy on 03-26-2024 ALP [Catalytic activity/Vol] 68 U/L Normal 34-104 [facility] Comment on above: Performed By: #### U A, CUU #### [facility] [address] [place] [address] [place] Aspartate aminotransferase [ Enzymatic activity/volume] in Serum or PlasmaOrdered By: Shawna Healy on 03-26-2024 AST [Catalytic activity/Vol] 17 U/L Normal 13-39 [facility] Comment on above: Performed By: #### U A, CUU #### [address] Bilirubin Test strip Ql (U)O rdered By: Shawna Healy on 03-26-2024 Bilirubin Ql (U) Negative Negative [facility] Bilirubin.total [Mass/volume ] in Serum or PlasmaOrdered By: Shawna Healy on 03-26-2024 Bilirubin [Mass/Vol] 0.6 mg/dL Normal 0.3-1.0 [facility] Comment on above: Performed By: #### U A, CUU #### [address] CMP with reflex to A1Con Albumin [Mass/Vol] 4.6 g/dL Normal 3.5-5.7 [facility] Comment on above: Performed By: #### U A, CUU #### [address] GFR/1.73 sq M.predicted MDRD (S/P/Bld) [Vol rate/Area] mL/min/{1.73_m2} Normal [facility] Comment on above: Performed By: #### U A, CUU #### [place] [address] [place] Calcium [Mass/volume] in Ser um or PlasmaOrdered By: Shawna Healy on 03-26-2024 Calcium [Mass/Vol] 9.6 mg/dL Normal 8.6-10.3 [facility] Comment on above: Performed By: #### U A, CUU #### [facility] [address] [place] [address] Carbon dioxide, total [Moles /volume] in Serum or PlasmaOrdered By: Shawna Healy on 03-26-2024 CO2 [Moles/Vol] 28.9 mmol/L Normal 21.0-31.0 [facility] Comment on above: Performed By: #### U A, CUU #### [facility] [address] [place] [address] [place] Chloride [Moles/volume] in S narendra or PlasmaOrdered By: Shawna Healy on 03-26-2024 Chloride [Moles/Vol] 106 mmol/L Normal 98-107 [facility] Comment on above: Performed By: #### U A, CUU #### [place] [address] [place] Color of Urine by AutoOrdere d By: Shawna Healy on 03-26-2024 Color (U) Colorless Normal Yellow [facility] Comment on above: Order Comment: Name Collection Type:: Clean-Voided Midstream Performed By: #### U A, CUU #### [place] [address] [place] Creatinine [Mass/volume] in Serum or PlasmaOrdered By: Shawna Healy on 03-26-2024 Creatinine [Mass/Vol] 0.72 mg/dL Normal 0.60-1.20 [facility] Comment on above: Performed By: #### U A, CUU #### [place] [address] [place] FE PROon 03-26-2024 % Iron Saturation 24.5 % Normal 20-50 [facility] Comment on above: Performed By: #### U A, CUU #### [facility] [address] [place] [address] Total Iron Binding Capacity 417 ug/dL Normal 255-450 [facility] Comment on above: Performed By: #### U A, CUU #### [place] [address] [place] Ferritin [Mass/volume] in Se rum or PlasmaOrdered By: Shawna Healy on 03-26-2024 Ferritin [Mass/Vol] 37.2 ng/mL Normal 11.0-306.8 [facility] Comment on above: Result Comment: PERF ORMED BY: [address] [place] [address] PATHOLOGIST [employer] LEONARDO LARA M.D. Performed By: #### U A, CUU #### [facility] [address] [place] [address] [place] Glucose [Mass/volume] in Ser um or PlasmaOrdered By: Shawna Healy on 03-26-2024 Glucose [Mass/Vol] 93 mg/dL Normal 70-100 [facility] Comment on above: Performed By: #### U A, CUU #### [facility] [address] [place] [address] [place] Glucose [Mass/volume] in Uri ne by Test stripOrdered By: Shawna Healy on 03-26-2024 Glucose Test strip (U) [Mass/Vol] Normal mg/dL Normal [facility] Hemoglobin Test strip Ql (U) Ordered By: Shawna Healy on 03-26-2024 Hemoglobin Ql (U) Negative Negative [facility] Iron [Mass/volume] in Serum or PlasmaOrdered By: Shawna Healy on 03-26-2024 Iron [Mass/Vol] 102 ug/dL Normal 50-212 [facility] Comment on above: Performed By: #### U A, CUU #### [facility] [address] [place] [id number] [place] Iron binding capacity [Mass/ volume] in Serum or PlasmaOrdered By: Shawna Healy on 03-26-2024 Iron binding capacity [Mass/Vol] 417 ug/dL 255-450 [facility] Iron saturation [Mass Fracti on] in Serum or PlasmaOrdered By: Shawna Healy on 03-26-2024 Iron saturation [Mass fraction] 24.5 % 20-50 [facility] Ketones [Presence] in Urine by Test stripOrdered By: Shawna Healy on 03-26-2024 Ketones Ql (U) Negative Normal Negative [facility] Comment on above: Order Comment: Name Collection Type:: Clean-Voided Midstream Performed By: #### U A, CUU #### [facility] [address] Laboratory - Microbiology an d Antimicrobial susceptibilityOrdered By: Shawna Healy on 03-26-2024 Bacteria identified Cx Nom (U) 2 Days [facility] Bacteria identified Cx Nom (U) 2 Days [facility] Leukocyte esterase [Presence ] in Urine by Test stripOrdered By: Shawna Healy on 03-26-2024 Leukocyte esterase Test strip Ql (U) Negative Normal Negative [facility] Comment on above: Order Comment: Name Collection Type:: Clean-Voided Midstream Performed By: #### U A, CUU #### [facility] [address] Nitrite Test strip Ql (U)Ord ered By: Shawna Healy on 03-26-2024 Nitrite Ql (U) Negative Negative [facility] No Panel InformationOrdered By: Shawna Healy on 03-26-2024 Estimated GFR (CKD-EPI) > 60.0 mL/Min [facility] Creatinine Clearance (Chem N/A [facility] Potassium [Moles/volume] in Serum or PlasmaOrdered By: Shawna Healy on 03-26-2024 Potassium [Moles/Vol] 4.3 mmol/L Normal 3.5-5.1 [facility] Comment on above: Performed By: #### U A, CUU #### [facility] [address] Protein Test strip (U) [Mass /Vol]Ordered By: Shawna Healy on 03-26-2024 Protein (U) [Mass/Vol] Negative Negative [facility] Protein [Mass/volume] in Ser um or PlasmaOrdered By: Shawna Healy on 03-26-2024 Protein [Mass/Vol] 6.4 g/dL Normal 6.4-8.9 [facility] Comment on above: Performed By: #### U A, CUU #### [facility] [address] Serum globulin measurement b y calculation (mass/volume)Ordered By: Shawna Healy on 03-26-2024 Globulin (S) [Mass/Vol] 1.8 g/dL Normal [facility] Comment on above: Performed By: #### U A, CUU #### [facility] [address] [place] [address] Serum or plasma albumin/glob ulin mass ratioOrdered By: Shawna Healy on 03-26-2024 Albumin/Globulin [Mass ratio] 2.6 {ratio} Normal [facility] Comment on above: Performed By: #### U A, CUU #### [facility] [address] [place] [address] Serum or plasma anion gap de terminationOrdered By: Shawna Healy on 03-26-2024 Anion gap [Moles/Vol] 10.4 mmol/L Normal 6.0-15.0 [facility] Comment on above: Performed By: #### U A, CUU #### [address] Sodium [Moles/volume] in Ser um or PlasmaOrdered By: Shawna Healy on 03-26-2024 Sodium [Moles/Vol] 141 mmol/L Normal 136-145 [facility] Comment on above: Performed By: #### U A, CUU #### [address] Specific gravity Test strip (U) [Rel density]Ordered By: Shawna Healy on 03-26-2024 Specific gravity (U) [Rel density] 1.001 1.001-1.030 [facility] Transferrin [Mass/volume] in Serum or PlasmaOrdered By: Shawna Healy on 03-26-2024 Transferrin [Mass/Vol] 298 mg/dL Normal 203-362 [facility] Comment on above: Performed By: #### U A, CUU #### [facility] [address] [place] [address] US renal BIon 03-26-2024 US renal BI [facility] [place] [address] Ultrasound Report Signed Patient: Jack Rea MR#: [id number] 53 : 1995 Acct:[id number] Age/Sex: 29 / F ADM Date: 03/26/24 Loc: Room: Type: [facility] Attending Dr: Shawna Healy APRN Ordering Provider: Shawna Healy APRN Date of Service: 03/26/24 US/US renal BI: R31.9 - Hematuria, unspecified Copies to: Shawna Healy APRN BILATERAL RENAL AND BLADDER ULTRASOUND CLINICAL [...] Justice Jr., D.O.03/26/2024 11:09 AM Dictation Location: [place] [address] Tech: Mor[facility]Hilary [facility] Transcribed By: LISA 03/26/24 1109 Dictated By: Misael Justice Jr, DO 03/26/24 1109 Signed By: 03/26/24 1109 Normal [facility] Urea nitrogen [Mass/volume] in Serum or PlasmaOrdered By: Shawna Healy on 03-26-2024 Urea nitrogen [Mass/Vol] 5 mg/dL Low 7-25 [facility] Comment on above: Performed By: #### U A, CUU #### [facility] [address] [place] [address] [place] Urinalysison 03-26-2024 Bilirubin,Urine Negative Normal Negative [facility] Comment on above: Order Comment: Name Collection Type:: Clean-Voided Midstream Performed By: #### U A, CUU #### [facility] [address] [place] [id number] [place] Glucose Ql (U) Normal Normal Normal [facility] Comment on above: Order Comment: Name Collection Type:: Clean-Voided Midstream Performed By: #### U A, CUU #### [facility] [address] [place] [id number] [place] Nitrite,Urine Negative Normal Negative [facility] Comment on above: Order Comment: Name Collection Type:: Clean-Voided Midstream Performed By: #### U A, CUU #### [address] Occult Blood,Urine Negative Normal Negative [facility] Comment on above: Order Comment: Name Collection Type:: Clean-Voided Midstream Result Comment: PERF ORMED BY: [place] [address] PATHOLOGIST [employer] LEONARDO LARA M.D. Performed By: #### U A, CUU #### [place] [address] [place] Protein,Urine Negative Normal Negative [facility] Comment on above: Order Comment: Name Collection Type:: Clean-Voided Midstream Performed By: #### U A, CUU #### [address] Specificy Porter,Urine 1.001 Normal 1.001-1.030 [facility] Comment on above: Order Comment: Name Collection Type:: Clean-Voided Midstream Performed By: #### U A, CUU #### [address] Urobilinogen,Urine Normal Normal Normal [facility] Comment on above: Order Comment: Name Collection Type:: Clean-Voided Midstream Performed By: #### U A, CUU #### [address] Urine Cultureon 03-26-2024 Bacteria identified Cx Nom (U) <9,000 colonies/ml mixed bacterial skin contaminants 2 Days PERFORMED BY: [place] [address] PATHOLOGIST [employer] LEONARDO LARA M.D. Normal [facility] Comment on above: Performed By: #### U A, CUU #### [address] Urine appearanceOrdered By: Shawna Healy on 03-26-2024 Appearance (U) Clear Normal Clear [facility] Comment on above: Order Comment: Name Collection Type:: Clean-Voided Midstream Performed By: #### U A, CUU #### [facility] [address] [place] [phone] [facility] Urobilinogen Test strip (U) [Mass/Vol]Ordered By: Shawna Healy on 03-26-2024 Urobilinogen (U) [Mass/Vol] Normal mg/dL Normal [facility] pH of Urine by Test stripOrd ered By: Shawna Healy on 03-26-2024 pH (U) 7.0 [pH] Normal 5.0-9.0 [facility] Comment on above: Order Comment: Name Collection Type:: Clean-Voided Midstream Performed By: #### U A, CUU #### [facility] [address] [place] [phone] [facility] CT Abdomen/Pelvis w/ Contras ton 03-21-2024 CT [...] 300 Contrast amount in ml's: 100 Normal [facility] ED Clinical Summaryon 2023 ED Clinical Summary ED Clinical Summary [place] [id number] ED Clinical Summary Person Information Name: JACK REA Sarita/[facility] Age: 29 Years : 1995 Sex: Female Language: Chilean PCP: SHAWNA HEALY CNP Marital Status: Phone: [phone] Visit Id: Visit Reason: Weakness or fatigue; [...] 03/21/2024 01:58:40 03/21/2024 01:58:40 03/21/2024 01:58:40 ADDRESS: [address] [facility] [id number] PHYS DOC NOTES: MEDICAL INFORMATION: Prescriptions Given: [id number], [address] [place] [address] [phone], [phone] methocarbamol (Robaxin 500 mg Tab) 1 Tablets By Mouth 3 times a day for 3 Days. Refills: 0. oxybutynin (oxybutynin 5 mg Tab) 1 Tablets By Mouth 3 times a day as needed for urinary discomfort. Refills: 0. Medications to Continue Taking That Have Changed [facility][id number], [address] [place] [address] [phone], [phone] START: naproxen (Naprosyn 500 mg Tab) 1 [...] Pain Without a Known Cause; Nausea, Adult, Sjlu-bp-Ybts; Dysuria Follow up: With: Address: When: Princess Baker In 3 days 03/24/2024 Comments: You can take the medications as prescribed as needed for pain. Please follow-up with your primary care doctor in the next 2 to 3 days for further evaluation and management. Please return to the ED for any new or worsening symptoms. With: Address: When: [address] [place] [address] [phone] Business (1) In 3 days DIAGNOSIS: Bilateral back pain; Dysuria Normal [facility] ED Note-Physicianon 03-21-20 ED Note-Physician ED Note-Physician [...] and Complexity of Problems Differential Diagnosis: [] [facility] Data External documents reviewed: [] My EKG [...] day(s), # 9 tab(s), Refills(s) 0, Pharmacy: [facility] #[id number], 160, cm, 03/20/24 22:16:00 EDT, Height/Length Dosing, 85.2, kg, 03/20/24 22:16:00 EDT, Weight Dosing naproxen, 500 mg = 1 tab(s), Oral, BID, PRN for pain, # 20 tab(s), Refills(s) 0, Pharmacy: [facility] #[id number], 160, cm, 03/20/24 22:16:00 EDT, Height/Length Dosing, [...] discomfort, # 30 tab(s), Refills(s) 0, Pharmacy: [facility] #[id number], 160, cm, 03/20/24 22:16:00 EDT, Height/Length Dosing, [...] Push Dispo (more content not included)... Normal [facility] Comment on above: Result Comment: Elec tronically Signed By: Jesica Mccabe DO\.br\Date and Time Signed: 03/21/24 01:42 EDT ED Patient Summaryon 024 ED Patient Summary ED Patient Summary [address] [address] Patient Discharge Instructions Person Information Name: ÁLVARO VINCENTKRISTOPHERDANIA Cedeno Age: 29 Years Arrival Date: 03/20/2024 22:05:10 Discharge Diagnosis: Bilateral back pain; Dysuria Primary Care Physician: SHAWNA HEALY CNP Provider Information Primary Provider: Jesica Mccabe DO [employer] Relationship Manager:None The exam and treatment you received in the Emergency Department were for an urgent problem and are not intended as complete care. It is important that you follow up with a doctor, nurse practitioner, or physician?s photography assistant for ongoing care. If your symptoms become worse or you do not improve as expected and you are unable to reach your usual health care provider, you should return to the Emergency Department. We are available 24 hours a day. FADI READANIA Pao has been given the following list of [...] or worsening symptoms. With: Address: When: SHAWNA HEALY [address] [place] [phone] Business (1) In 3 days In the event that this physician does not participate in your insurance network, please consult with your insurance company to find a nearby participating provider. Patient Education Materials: Pain Without a Known Cause; Nausea, Adult, Wkxg-ud-Gcus; Dysuria A MESSAGE TO ALL PATIENTS REGARDING OPIOIDS PRESCRIPTION OPIOIDS: WHAT YOU NEED TO KNOW Prescription opioids can be used to help relieve wfoipalw-do-xuhwmh pain and are often prescribed following a [...] guidance from (more content not included)... Normal [facility] XR Chest Single Viewon 03-21 XR Chest [...] mGy = na DAP = na Normal [facility] BMPon 03-20-2024 Anion gap [Moles/Vol] 9 mmol/L Normal 6-16 [facility] Comment on above: Performed By: #### 2 [id number] #### [facility] [address] [place] [address] Calcium [Mass/Vol] 9.4 mg/dL Normal 8.9-11.1 [facility] Comment on above: Performed By: #### 2 [id number] #### [facility] [address] [place] [address] Chloride [Moles/Vol] 107 mmol/L Normal 101-111 [facility] [facility] Comment on above: Performed By: #### 2 [id number] #### [facility] [address] [place] [address] CO2 [Moles/Vol] 26 mmol/L Normal 21-31 [facility] Comment on above: Performed By: #### 2 214158 #### [facility] [address] [place] [address] Creatinine [Mass/Vol] 0.7 mg/dL Normal 0.5-1.3 [facility] Comment on above: Performed By: #### 2 560040 #### [facility] [address] [place] [address] Glucose [Mass/Vol] 95 mg/dL Normal 55-199 [facility] Comment on above: Performed By: #### 2 696179 #### [facility] [address] [place] [address] Potassium [Moles/Vol] 3.7 mmol/L Normal 3.5-5.3 [facility] Comment on above: Performed By: #### 2 [id number] #### [facility] [address] [place] [address] Sodium [Moles/Vol] 138 mmol/L Normal 135-145 [facility] Comment on above: Performed By: #### 2 [id number] #### [facility] [address] [place] [address] Urea nitrogen [Mass/Vol] 7 mg/dL Normal 5-21 [facility] Comment on above: Performed By: #### 2 [id number] #### [facility] [address] [place] [address] Urea nitrogen/Creatinine [Mass ratio] 10 No Units Normal 10-20 [facility] Comment on above: Performed By: #### 2 [id number] #### [facility] [address] [place] [address] CBC w/ Auto Diffon 4 Basophils/100 WBC (Bld) 2.1 % High 0.0-2.[address] [facility] Comment on above: Performed By: #### 2 [id number] #### [facility] [address] [place] [address] Basophils/Leukocytes Auto (Bld) [Pure # fraction] 0.3 E9/L High 0.0-0.2 [facility] Comment on above: Performed By: #### 2 975310 #### [facility] [address] [place] [address] Eosinophils (Bld) [#/Vol] 0.2 E9/L Normal 0.0-0.5 [facility] Comment on above: Performed By: #### 2 517104 #### [facility] [address] [place] [address] Eosinophils/100 WBC (Bld) 1.5 % Normal 0.0-8.0 [facility] Comment on above: Performed By: #### 2 039116 #### [facility] [address] [place] [address] Erythrocyte distribution width (RBC) [Ratio] 12.7 % Normal 10.9-14.2 [facility] Comment on above: Performed By: #### 2 922942 #### [facility] [address] [place] [address] Hematocrit (Bld) [Volume fraction] 42.1 % Normal 34.0-46.0 [facility] Comment on above: Performed By: #### 2 125131 #### [facility] [address] [place] [address] Hemoglobin (Bld) [Mass/Vol] 14.5 g/dL Normal 12.0-16.0 [facility] Comment on above: Performed By: #### 2 289131 #### [facility] [address] [place] [address] Lymphocytes (Bld) [#/Vol] 2.4 E9/L Normal 1.0-4.0 [facility] Comment on above: Performed By: #### 2 [id number] #### [facility] [address] [place] [address] Lymphocytes/100 WBC (Bld) 19.1 % Normal 14.0-50.0 [facility] Comment on above: Performed By: #### 2 980425 #### [facility] [address] [place] [address] MCH (RBC) [Entitic mass] 30.4 pg Normal 27.0-34.0 [facility] Comment on above: Performed By: #### 2 656309 #### [facility] [address] [place] [address] MCHC (RBC) [Mass/Vol] 34.4 g/dL Normal 31.4-36.0 [facility] Comment on above: Performed By: #### 2 255495 #### [facility] [address] [place] [address] MCV (RBC) [Entitic vol] 88.6 fL Normal 80.0-100.[address] [facility] Comment on above: Performed By: #### 2 367392 #### [facility] [address] [place] [address] Monocytes (Bld) [#/Vol] 0.9 E9/L Normal 0.2-1.[address] [facility] Comment on above: Performed By: #### 2 502087 #### [facility] [address] [place] [address] Neutrophils (Bld) [#/Vol] 8.8 E9/L High 2.0-7.5 [facility] Comment on above: Performed By: #### 2 934943 #### [facility] [address] [place] [address] Neutrophils/100 WBC (Bld) 70.3 % Normal 36.0-75.0 [facility] Comment on above: Performed By: #### 2 761438 #### [facility] [address] [place] [address] Platelet mean volume (Bld) [Entitic vol] 8.7 fL Normal 6.4-10.8 [facility] Comment on above: Performed By: #### 2 498960 #### [facility] [address] [place] [address] Platelets (Bld) [#/Vol] 221.0 E9/L Normal 150.0-500.0 [facility] Comment on above: Performed By: #### 2 511194 #### [facility] [address] [place] [address] RBC (Bld) [#/Vol] 4.8 E12/L Normal 4.3-5.9 [facility] Comment on above: Performed By: #### 2 561232 #### [facility] [address] [place] [address] WBC corrected for nucl RBC Auto (Bld) [#/Vol] 12.6 E9/L High 4.0-11.0 [facility] Comment on above: Performed By: #### 2 222392 #### [facility] [address] [place] [address] Hep Func Panelon 03-20-2024 Albumin [Mass/Vol] 4.5 g/dL Normal 3.3-5.0 [facility] Comment on above: Performed By: #### 2 655515 #### [facility] [address] [place] [address] Albumin/Globulin (S) [Mass conc ratio] 2.0 Normal 1.1-2.2 [facility] Comment on above: Performed By: #### 2 461192 #### [facility] [address] [place] [address] ALP [Catalytic activity/Vol] 61 Int._Unit/L Normal 21-98 [facility] Comment on above: Performed By: #### 2 825328 #### [facility] [address] [place] [address] ALT No additional P-5'-P [Catalytic activity/Vol] 19 Int._Unit/L Normal 6-46 [facility] Comment on above: Performed By: #### 2 483081 #### [facility] [address] [place] [address] AST [Catalytic activity/Vol] 16 Int._Unit/L Normal 5-43 [facility] Comment on above: Performed By: #### 2 351588 #### [facility] [address] [place] [address] Bilirubin [Mass/Vol] 0.3 mg/dL Normal 0.0-1.1 [facility] Comment on above: Performed By: #### 2 167577 #### [facility] [address] [place] [address] Bilirubin.direct [Mass/Vol] 0.0 mg/dL Normal 0.0-0.4 [facility] Comment on above: Performed By: #### 2 550681 #### [facility] [address] [place] [address] Bilirubin.indirect [Mass or moles/Vol] 0.3 mg/dL Normal 0.1-0.9 [facility] Comment on above: Performed By: #### 2 511370 #### [facility] [address] [place] [address] Globulin (S) [Mass/Vol] 2.2 g/dL Normal 1.4-4.[address] [facility] Comment on above: Performed By: #### 2 722908 #### [facility] [address] [place] [address] Protein [Mass/Vol] 6.7 g/dL Normal 6.0-7.8 [facility] Comment on above: Performed By: #### 2 987173 #### [facility] [address] [place] [address] Lipase Levelon 03-20-2024 Lipase [Catalytic activity/Vol] 32 U/L Normal 13-58 [facility] Comment on above: Performed By: #### 2 936483 #### [facility] [address] [place] [address] Magnesiumon 03-20-2024 Magnesium [Mass/Vol] 2.1 mg/dL Normal 1.3-2.4 [facility] Comment on above: Performed By: #### 2 759799 #### [facility] [address] [place] [address] TSH With T4fr Reflexon 03-20 TSH Qn 3.72 m[IU]/L Normal 0.34-5.60 [facility] Comment on above: Performed By: #### 1 [id number] #### [facility] [address] [place] [address] U BetaHcg Qualon 03-20-2024 HCG.beta subunit (U) [Moles/Vol] Negative Normal [facility] Comment on above: Performed By: #### 2 [id number] #### [facility] [address] [place] [address] UA with Cult Rflxon 03-20-20 24 Bilirubin Ql (U) Negative Normal Negative [facility] Comment on above: Performed By: #### 4 [id number] #### [facility] [address] [place] [address] Clarity (U) Clear Normal Clear [facility] Comment on above: Performed By: #### 4 [id number] #### [facility] [address] [place] [address] Color (U) Colorless Abnormal Yellow [facility] Comment on above: Result Comment: Micr oscopic readings are only performed on those samples that meet specific criteria set forth by [facility]. Performed By: #### 4 [id number] #### [facility] [address] [place] [address] Glucose Ql (U) Negative Normal Negative [place] Comment on above: Performed By: #### 4 [id number] #### [facility] [address] [place] [address] Hemoglobin Auto test strip (U) [Mass/Vol] Negative Normal Negative [facility] Comment on above: Performed By: #### 4 [id number] #### [facility] [address] [place] [address] Ketones Auto test strip Ql (U) Negative Normal Negative [facility] Comment on above: Performed By: #### 4 [id number] #### [facility] [address] [place] [address] Leukocyte esterase Auto test strip Ql (U) Negative Normal Negative [facility] Comment on above: Performed By: #### 4 [id number] #### [facility] [address] [place] [address] Nitrite Auto test strip Ql (U) Negative Normal Negative [facility] Comment on above: Performed By: #### 4 [id number] #### [facility] [address] [place] [address] pH (U) 7.0 [pH] Invalid Interpretation Code 5.0-9.0 [facility] Comment on above: Performed By: #### 4 [id number] #### [facility] [address] [place] [address] Protein Ql (U) Negative Normal Negative [place] Comment on above: Performed By: #### 4 [id number] #### [facility] [address] [place] [address] Specific gravity (U) [Rel density] 1.003 Invalid Interpretation Code 1.005-1.030 [facility] Comment on above: Performed By: #### 4 [id number] #### [facility] [address] [place] [address] Urobilinogen (U) [Mass/Vol] Negative Normal Negative [facility] Comment on above: Performed By: #### 4 [id number] #### [facility] [address] [place] [address] Type of Urine collection method Clean Catch Normal [facility] Comment on above: Performed By: #### 4 [id number] #### [facility] [address] [place] [address] eGFRon 03-20-2024 eGFR 119 mL/min/1.73 m2 Normal >=59 [facility] Comment on above: Order Comment: Order added by Discern Expert. Performed By: #### 1 [id number] #### [facility] [address] [place] [address] Vit B1on 03-18-2024 Thiamine (Bld) [Moles/Vol] 108.6 nmol/L Invalid Interpretation Code 66.5-200.0 [facility] Comment on above: Result Comment: This test was developed and its performance characteristics determined by [facility]. It has not been cleared or approved by the Food and Drug Administration. Performed at: [facility] [id number] MD Ubaldo Ann Performed By: #### 1 [id number] #### [facility] [address] [place] [address] C Urineon 03-16-2024 Bacteria identified Cx Nom (U) Microbiology PROCEDURE: Urine Culture [R1] SOURCE: U CleanCatch BODY SITE: COLLECTED DATE/TIME: 03/14/2024 07:41 EDT RECEIVED DATE/TIME: 03/14/2024 08:24 EDT START DATE/TIME: 03/14/2024 08:25 EDT FREE TEXT SOURCE: NIRAJ SUPERVISOR FILM PROCESSING, SHAW[facility] SUPERVISOR FILM PROCESSING, SHAWNA FINAL REPORTS Final Report [] Verified Date/Time: 03/16/2024 10:31 EDT 2,000 cfu/ml Mixed skin contaminants Performing Locations R1: This test was performed at: [facility], [address] [place] [address], [phone] , , Normal [facility] Comment on above: Performed By: #### 2 [id number] #### [facility] [address] [place] [address] XR Spine Lumbar Complete Inc luding Bendion 03-16-2024 XR Spine Lumbar Complete Including [...] projects over the pelvis. Ordering Provider: SHAWNA HEALY FINAL REPORT Dictated: 03/16/2024 1:09 pm Ananda Shine DO Signed (Electronic Signature): 03/16/2024 1:09 pm Signed by: Ananda Shine DO Transcribed by: DAVID Technologist: RADHA Technical Comments Radiation Dose: Ka,r in mGy = na DAP = na Normal [facility] PTH [place] 03-15-2024 Parathyrin.intact [Mass/Vol] 35 pg/mL Invalid Interpretation Code 15-65 [facility] Comment on above: Result Comment: Perf ormed at: [facility] [address] [id number] PhD Fadumo Peraza Performed By: #### 1 [id number] #### [facility] [address] [place] [address] Automated basophil countOrde red By: SYSTEM SYSTEM on 03-14-2024 Basophils/100 WBC (Bld) 0.4 % 0.0-2.0 R emisol Heme Automated blood monocyte cou ntOrdered By: SYSTEM SYSTEM on 03-14-2024 Monocytes/100 WBC (Bld) 7.7 % 4.0-14.0 R emisol Heme Basophils/100 WBC Auto (Bld) on 03-14-2024 Basophils/100 WBC (Bld) 0.0 E9/L 0.0-0.2 F [facility] Blood thiamine measurement ( moles/volume)on 03-14-2024 Thiamine (Bld) [Moles/Vol] 108.6 nmol/L 66.5-200.0 [facility] CBC w/ Auto Diffon Basophils/100 WBC (Bld) 0.4 % Normal 0.0-2.[address] [facility] Comment on above: Performed By: #### 2 [id number] #### [facility] [address] [place] [address] Basophils/Leukocytes Auto (Bld) [Pure # fraction] 0.0 E9/L Normal 0.0-0.2 [facility] Comment on above: Performed By: #### 2 499356 #### [facility] [address] [place] [address] Eosinophils (Bld) [#/Vol] 0.1 E9/L Normal 0.0-0.5 [facility] Comment on above: Performed By: #### 2 492956 #### [facility] [address] [place] [address] Eosinophils/100 WBC (Bld) 1.4 % Normal 0.0-8.0 [facility] Comment on above: Performed By: #### 2 859789 #### [facility] [address] [place] [address] Erythrocyte distribution width (RBC) [Ratio] 13.0 % Normal 10.9-14.2 [facility] Comment on above: Performed By: #### 2 710293 #### [facility] [address] [place] [address] Hematocrit (Bld) [Volume fraction] 44.3 % Normal 34.0-46.0 [facility] Comment on above: Performed By: #### 2 880298 #### [facility] [address] [place] [address] Hemoglobin (Bld) [Mass/Vol] 15.4 g/dL Normal 12.0-16.0 [facility] Comment on above: Performed By: #### 2 414404 #### [facility] [address] [place] [address] Lymphocytes (Bld) [#/Vol] 2.6 E9/L Normal 1.0-4.0 [facility] Comment on above: Performed By: #### 2 909170 #### [facility] [address] [place] [address] Lymphocytes/100 WBC (Bld) 26.0 % Normal 14.0-50.0 [facility] Comment on above: Performed By: #### 2 926261 #### [facility] [address] [place] [address] MCH (RBC) [Entitic mass] 31.0 pg Normal 27.0-34.0 [facility] Comment on above: Performed By: #### 2 625592 #### [facility] [address] [place] [address] MCHC (RBC) [Mass/Vol] 34.8 g/dL Normal 31.4-36.0 [facility] Comment on above: Performed By: #### 2 623510 #### [facility] [address] [place] [address] MCV (RBC) [Entitic vol] 89.2 fL Normal 80.0-100.[address] [facility] Comment on above: Performed By: #### 2 235062 #### [facility] [address] [place] [address] Monocytes (Bld) [#/Vol] 0.8 E9/L Normal 0.2-1.[address] [facility] Comment on above: Performed By: #### 2 286580 #### [facility] [address] [place] [address] Neutrophils (Bld) [#/Vol] 6.4 E9/L Normal 2.0-7.5 [facility] Comment on above: Performed By: #### 2 441647 #### [facility] [address] [place] [address] Neutrophils/100 WBC (Bld) 64.5 % Normal 36.0-75.0 [facility] Comment on above: Performed By: #### 2 055598 #### [facility] [address] [place] [address] Platelet mean volume (Bld) [Entitic vol] 8.6 fL Normal 6.4-10.8 [facility] Comment on above: Performed By: #### 2 015478 #### [facility] [address] [place] [address] Platelets (Bld) [#/Vol] 229.0 E9/L Normal 150.0-500.0 [facility] Comment on above: Performed By: #### 2 990509 #### [facility] [address] [place] [address] RBC (Bld) [#/Vol] 5.0 E12/L Normal 4.3-5.9 [facility] Comment on above: Performed By: #### 2 945181 #### [facility] [address] [place] [address] WBC corrected for nucl RBC Auto (Bld) [#/Vol] 9.9 E9/L Normal 4.0-11.0 [facility] Comment on above: Performed By: #### 2 [id number] #### [facility] [address] [place] [address] CHEMISTRYOrdered By: SYSTEM SYSTEM on 03-14-2024 25-hydroxyvitamin [...] 03-14-2024 Albumin [Mass/Vol] 4.5 g/dL Normal 3.3-5.0 [facility] Comment on above: Performed By: #### 2 120314 #### [facility] [address] [place] [address] Albumin/Globulin (S) [Mass conc ratio] 1.9 Normal 1.1-2.2 [facility] Comment on above: Performed By: #### 2 345237 #### [facility] [address] [place] [address] ALP [Catalytic activity/Vol] 66 Int._Unit/L Normal 21-98 [facility] Comment on above: Performed By: #### 2 363343 #### [facility] [address] [place] [address] ALT No additional P-5'-P [Catalytic activity/Vol] 25 Int._Unit/L Normal 6-46 [facility] Comment on above: Performed By: #### 2 323152 #### [facility] [address] [place] [address] Anion gap [Moles/Vol] 12 mmol/L Normal 6-16 [facility] Comment on above: Performed By: #### 2 536793 #### [facility] [address] [place] [address] AST [Catalytic activity/Vol] 21 Int._Unit/L Normal 5-43 [facility] Comment on above: Performed By: #### 2 298078 #### [facility] [address] [place] [address] Bilirubin [Mass/Vol] 0.7 mg/dL Normal 0.0-1.1 [facility] Comment on above: Performed By: #### 2 147981 #### [facility] [address] [place] [address] Calcium [Mass/Vol] 9.2 mg/dL Normal 8.9-11.1 [facility] Comment on above: Performed By: #### 2 726393 #### [facility] [address] [place] [address] Chloride [Moles/Vol] 105 mmol/L Normal 101-111 [facility] Comment on above: Performed By: #### 2 555487 #### [facility] [address] [place] [address] CO2 [Moles/Vol] 25 mmol/L Normal 21-31 [facility] Comment on above: Performed By: #### 2 726258 #### [facility] [address] [place] [address] Creatinine [Mass/Vol] 0.8 mg/dL Normal 0.5-1.3 [facility] Comment on above: Performed By: #### 2 532919 #### [facility] [address] [place] [address] Globulin (S) [Mass/Vol] 2.4 g/dL Normal 1.4-4.0 [facility] Comment on above: Performed By: #### 2 447592 #### [facility] [address] [place] [address] Glucose [Mass/Vol] 97 mg/dL Normal 55-199 [facility] Comment on above: Performed By: #### 2 421427 #### [facility] [address] [place] [address] Potassium [Moles/Vol] 3.8 mmol/L Normal 3.5-5.3 [facility] Comment on above: Performed By: #### 2 144497 #### [facility] [address] [place] [address] Protein [Mass/Vol] 6.9 g/dL Normal 6.0-7.8 [facility] Comment on above: Performed By: #### 2 [id number] #### [facility] [address] [place] [address] Sodium [Moles/Vol] 138 mmol/L Normal 135-145 [facility] Comment on above: Performed By: #### 2 [id number] #### [facility] [address] [place] [address] Urea nitrogen [Mass/Vol] 8 mg/dL Normal 5-21 [facility] Comment on above: Performed By: #### 2 643984 #### [facility] [address] [place] [address] Urea nitrogen/Creatinine [Mass ratio] 10 No Units Normal 10-20 [facility] Comment on above: Performed By: #### 2 [id number] #### [facility] [address] [place] [address] Eosinophils/100 leukocytes i n Blood by Manual [...] (S/P/Bld) [Vol rate/Area] 102 mL/min/1.73 m2 >=59 [facility] HEMATOLOGYOrdered By: SYSTEM SYSTEM on 03-14-2024 Basophils/Leukocytes [...] (Bld) [Mass/Vol] 15.4 g/dL 12.0-16.0 Remisol Heme [id number] 03-14-2024 HbA1c (Bld) [Mass fraction] 4.8 % Normal <=5.9 [facility] Comment on above: Performed By: #### 7 [id number] #### [facility] [address] [place] [address] Ironon 03-14-2024 Iron [Mass/Vol] 79 microgram/dL Normal 35-153 Fish er [facility] Comment on above: Performed By: #### 2 [id number] #### [facility] [address] [place] [address] Iron binding capacity [Mass/ volume] in Serum or Plasmaon 03-14-2024 Iron binding capacity [Mass/Vol] 410 microgram/dL High 250-400 [facility] - Chemistry and C hemistry - [...] Remisol Chem Bilirubin Ql (U) Negative Negative FT UA Auto SS Urobilinogen (U) [Mass/Vol] Negative Negative [facility] [place] [facility] - Chemistry and C hemistry - challengeon 03-14-2024 Glucose (U) [Mass/Vol] Negative Negative [facility] Ketones Ql (U) Negative Negative [facility] pH (U) 5.5 [pH] 5.0-9.0 [facility] Specific gravity (U) [Rel density] 1.026 1.005-1.030 [facility] - Hematology and Cell countsOrdered By: Martina Chou on 03-14-2024 HbA1c (Bld) [Mass fraction] 4.8 % <=5.9 [facility] [place] [facility] - Hematology and Cell countsOrdered By: SYSTEM SYSTEM on 03-14-2024 Neutrophils/100 WBC (Bld) 64.5 % 36.0-75.0 [facility] - Specimen inform ationon 03-14-2024 Appearance (U) Turbid Abnormal Clear [facility] Color (U) Yellow Yellow [facility] Specimen type Nom (Spec) Clean Catch [facility] - Urinalysison Leukocyte esterase Test strip Ql (U) 500 Mavis/uL [id number] Abnormal Negative [facility] Mucus Ql (Urine sed) 1+ CD:[id number] Abnormal Negative [facility] Nitrite Ql (U) Negative Negative [facility] Laboratory - UrinalysisOrder ed By: SYSTEM SYSTEM on 03-14-2024 Protein Ql (U) Trace mg/dL Abnormal Negative [facility] [place] A uto SS Leukocytes [#/volume] correc [...] 6.4 E9/L 2.0-7.5 Remisol Heme No Panel InformationOrdered By: Shawna Healy on 03-14-2024 C Urine [facility] C Urine [facility] No Panel Informationon 03-14 25-Hydroxy Vitamin D Total 25.8 ng/mL Low 30.0-100.0 [facility] Alanine Aminotransferase (ALT/SGPT) 25 Int._Unit/L 6-46 [facility] Alkaline Phosphatase 66 Int._Unit/L 21-98 [facility] Aspartate Amino Transf (AST/SGOT) 21 Int._Unit/L 5-43 [facility] BUN/Creatinine Ratio 10 No Units 10-20 [facility] Eosinophils # (Auto) 0.1 E9/L 0.0-0.5 [facility] Iron Level 79 microgram/dL 35-153 [facility] Lymphocytes # (Manual) 2.6 E9/L 1.0-4.0 [facility] Parathyroid Hormone (Intact) 35 pg/mL 15-65 [facility] Urine Bacteria Trace [HPF] Trace [facility] Urine Occult Blood Trace mg/dL Abnormal Negative [facility] Urine RBC 4-20 CD:[id number] Abnormal 0-3 [facility] Urine Squamous Epithelial Cells 9-10 CD:[id number] [facility] Urine WBC 26-30 CD:[id number] Abnormal 0-5 [facility] Platelet mean volume [Entiti c volume] in [...] binding capacity [Mass/Vol] 410 microgram/dL High 250-400 [facility] Comment on above: Performed By: #### 1 [id number] #### [facility] [address] [place] [address] Transferrin [Mass/Vol] 293 mg/dL Normal 200-370 [facility] Comment on above: Performed By: #### 1 [id number] #### [facility] [address] [place] [address] TSH With T4fr Reflexon 03-14 TSH Qn 2.09 m[IU]/L Normal 0.34-5.60 [facility] Comment on above: Performed By: #### 1 [id number] #### [facility] [address] [place] [address] URINALYSISOrdered By: SYSTEM SYSTEM on 03-14-2024 Bacteria Auto Ql (U) Trace /HPF Normal Trace/HPF [facility] UA Auto SS Clarity (U) Turbid *ABN* (03/14/24 7:41 AM) Invalid Interpretation Code Clear [facility] UA Auto SS Color (U) Yellow 1 (03/14/24 7:41 AM) Normal Yellow [facility] [place] Auto SS Comment on above: Interpretive Data: M icroscopic readings are only performed on those samples that meet specific criteria set forth by [facility]. Epithelial cells.squamous Auto (Urine sed) [#/Area] [...] 1+ graded/LPF Invalid Interpretation Code Negativegrad ed/LPF [facility] UA Auto SS Nitrite Auto test strip Ql (U) Negative Normal Negativemg/d L [facility] UA Auto SS pH (U) 5.5 *NA* (03/14/24 7:41 AM) Invalid Interpretation Code 5.0 - 9.0 [facility] Auto SS RBC Ql (U) 4-20 graded/HPF Invalid Interpretation Code 0-3graded/HP F [facility] UA Auto SS Specific gravity (U) [Rel density] 1.026 *NA* (03/14/24 7:41 AM) Invalid Interpretation Code 1.005 - 1.030 [facility] UA Auto SS WBC Auto (Urine sed) [#/Area] 26-30 graded/HPF Invalid Interpretation Code 0-5graded/HP F [facility] UA Auto SS URINALYSISOrdered By: Morena Bloom on 03-14-2024 UA Spec Desc Clean Catch (03/14/24 7:41 AM) Normal [facility] [place]A Auto SS Urinalysis with Microon 03-04 Bacteria Auto Ql (U) Trace Normal Trace Fish er [facility] Comment on above: Performed By: #### 4 [id number] #### [facility] [address] [place] [address] Bilirubin Ql (U) Negative Normal Negative [facility] Comment on above: Performed By: #### 4 [id number] #### [facility] [address] [place] [address] Clarity (U) Turbid Abnormal Clear [facility] Comment on above: Performed By: #### 4 [id number] #### [facility] [address] [place] [address] Color (U) Yellow Normal Yellow [facility] Comment on above: Result Comment: Micr oscopic readings are only performed on those samples that meet specific criteria set forth by [facility]. Performed By: #### 4 [id number] #### [facility] [address] [place] [address] Epithelial cells.squamous Auto (Urine sed) [#/Area] 9-10 Invalid Interpretation Code [facility] Comment on above: Performed By: #### 4 [id number] #### [facility] [address] [place] [address] Glucose Ql (U) Negative Normal Negative [place] Comment on above: Performed By: #### 4 [id number] #### [facility] [address] [place] [address] Hemoglobin Auto test strip (U) [Mass/Vol] Trace Abnormal Negative [facility] Comment on above: Performed By: #### 4 [id number] #### [facility] [address] [place] [address] Ketones Auto test strip Ql (U) Negative Normal Negative [facility] Comment on above: Performed By: #### 4 [id number] #### [facility] [address] [place] [address] Leukocyte esterase Auto test strip Ql (U) 500 Mavis/uL Abnormal Negative [facility] Comment on above: Performed By: #### 4 [id number] #### [facility] [address] [place] [address] Mucus Auto Ql (U) 1+ CD:[id number] Abnormal Negative F [facility] Comment on above: Performed By: #### 4 [id number] #### [facility] [address] [place] [address] Nitrite Auto test strip Ql (U) Negative Normal Negative [facility] Comment on above: Performed By: #### 4 [id number] #### [facility] [address] [place] [address] pH (U) 5.5 [pH] Invalid Interpretation Code 5.0-9.0 [facility] Comment on above: Performed By: #### 4 [id number] #### [facility] [address] [place] [address] Protein Ql (U) Trace Abnormal Negative [place] Comment on above: Performed By: #### 4 [id number] #### [facility] [address] [place] [address] RBC Ql (U) 4-20 Abnormal 0-3 [facility] Comment on above: Performed By: #### 4 [id number] #### [facility] [address] [place] [address] Specific gravity (U) [Rel density] 1.026 Invalid Interpretation Code 1.005-1.030 [facility] Comment on above: Performed By: #### 4 [id number] #### [facility] [address] [place] [address] Urobilinogen (U) [Mass/Vol] Negative Normal Negative [facility] Comment on above: Performed By: #### 4 [id number] #### [facility] [address] [place] [address] WBC Auto (Urine sed) [#/Area] 26-30 Abnormal 0-5 [facility] Comment on above: Performed By: #### 4 [id number] #### [facility] [address] [place] [address] Type of Urine collection method Clean Catch Normal [facility] Comment on above: Performed By: #### 4 [id number] #### [facility] [address] [place] [address] Vit B12on 03-14-2024 Cobalamin (Vitamin B12) [Mass/Vol] 345 pg/mL Normal 50-1500 [facility] Comment on above: Performed By: #### 2 [id number] #### [facility] [address] [place] [address] Vitamin D 25 Hydroxyon 03-14 25-hydroxyvitamin D3 [Mass/Vol] 25.8 ng/mL Low 30.0-100.0 [facility] Comment on above: Performed By: #### 5 [id number] #### [facility] [address] [place] [address] eGFRon 03-14-2024 eGFR 102 mL/min/1.73 m2 Normal >=59 [facility] Comment on above: Order Comment: Order added by Discern Expert. Performed By: #### 1 [id number] #### [facility] [address] [place] [address] Ambulatory Visit Summaryon 0 01-10-2024 Ambulatory Visit Summary Ambulatory Visi t Summary JACK REA :1995 Visit Date:01/10/2024 Ambulatory Visit Instructions Your Diagnosis Right flank pain Nausea and vomiting Irritable bowel syndrome with constipation Generalized abdominal pain Bloating Your Care Team Attending Physician - Juliana Barton MD Primary Care Physician - SHAWNA HEALY CNP This Is Your Medications List linaclotide [...] AM EDT With: Juliana Barton MD Where: [facility] Normal Rene [facility] Gastroenterology Office/Clin ic Noteon 01-10-2024 Gastroenterology Office/Clinic Note Gastroenterology Office/Clinic Note Chief Complaint f/u ER - right flank pain, n/v HPI Staff Patient is a 28 year old female who presents today for a [place] [facility] [place] for right flank pain, nausea [...] 88.8 fL (12/28/23) Chloride: 107 mmol/L (12/28/23) [place] Absolute: 0.5 E9/L (12/28/23) CO2: 24 mmol/L (12/28/23) [place] Auto: 5.4 % (12/28/23) Creatinine: 0.7 mg/dL [...] Daily, # 30 cap(s), Refills(s) 5, [id number], 160, cm, 01/10/24 13:34:00 EDT, Height/Length Dosing, 85, kg, 01/10/24 13:34:00 EDT, Weight Dosing 2. Nausea and vomiting (R11.2: Nausea with vomiting, unspecified) Ordered: linaclotide, 145 mcg = 1 cap(s), Oral, Daily, # 30 cap(s), Refills(s) 5, [id number], 160, cm, 01/10/24 13:34:00 EDT, Height/Length Dosing, [...] syndrome w (more content not included)... Normal [facility] Comment on above: Result Comment: Elec tronically Signed By: Oralia BURKS, Juliana Smithbr\Date and Time Signed: 01/10/24 14:04 EDT BMPon 12-28-2023 Creatinine [Mass/Vol] 0.7 mg/dL Normal 0.5-1.3 [facility] Comment on above: Performed By: #### 2 [id number] #### [facility] [address] [place] [address] Urea nitrogen/Creatinine [Mass ratio] 9 No Units Low 10-20 [facility] Comment on above: Performed By: #### 2 [id number] #### [facility] [address] [place] [address] Anion gap [Moles/Vol] 13 mmol/L Normal 6-16 [facility] Comment on above: Performed By: #### 2 [id number] #### [facility] [address] [place] [address] Calcium [Mass/Vol] 9.3 mg/dL Normal 8.9-11.1 [facility] Comment on above: Performed By: #### 2 [id number] #### [facility] [address] [place] [address] Chloride [Moles/Vol] 107 mmol/L Normal 101-111 [facility] Comment on above: Performed By: #### 2 [id number] #### [facility] [address] [place] [address] CO2 [Moles/Vol] 24 mmol/L Normal 21-31 [facility] Comment on above: Performed By: #### 2 [id number] #### [facility] [address] [place] [address] Glucose [Mass/Vol] 103 mg/dL Normal 55-199 [facility] Comment on above: Performed By: #### 2 [id number] #### [facility] [address] [place] [address] Potassium [Moles/Vol] 3.9 mmol/L Normal 3.5-5.3 [facility] Comment on above: Performed By: #### 2 [id number] #### [facility] [address] [place] [address] Sodium [Moles/Vol] 140 mmol/L Normal 135-145 [facility] Comment on above: Performed By: #### 2 [id number] #### [facility] [address] [place] [address] Urea nitrogen [Mass/Vol] 6 mg/dL Normal 5-21 [facility] Comment on above: Performed By: #### 2 [id number] #### [facility] [address] [place] [address] CBC w/ Auto Diffon 4 Basophils/100 WBC (Bld) 0.4 % Normal 0.0-2.0 [facility] Comment on above: Performed By: #### 2 [id number] #### [facility] [address] [place] [address] Basophils/Leukocytes Auto (Bld) [Pure # fraction] 0.0 E9/L Normal 0.0-0.2 [facility] Comment on above: Performed By: #### 2 [id number] #### [facility] [address] [place] [address] Eosinophils (Bld) [#/Vol] 0.2 E9/L Normal 0.0-0.5 [facility] Comment on above: Performed By: #### 2 [id number] #### [facility] [address] [place] [address] Eosinophils/100 WBC (Bld) 1.8 % Normal 0.0-8.0 [facility] Comment on above: Performed By: #### 2 [id number] #### [facility] [address] [place] [address] Erythrocyte distribution width (RBC) [Ratio] 13.2 % Normal 10.9-14.2 [facility] Comment on above: Performed By: #### 2 [id number] #### [facility] [address] [place] [address] Hematocrit (Bld) [Volume fraction] 44.4 % Normal 34.0-46.0 [facility] Comment on above: Performed By: #### 2 [id number] #### [facility] [address] [place] [address] Hemoglobin (Bld) [Mass/Vol] 15.2 g/dL Normal 12.0-16.0 [facility] Comment on above: Performed By: #### 2 [id number] #### [facility] [address] [place] [address] Lymphocytes (Bld) [#/Vol] 2.0 E9/L Normal 1.0-4.0 [facility] Comment on above: Performed By: #### 2 [id number] #### [facility] [address] [place] [address] Lymphocytes/100 WBC (Bld) 20.4 % Normal 14.0-50.0 [facility] Comment on above: Performed By: #### 2 [id number] #### [facility] [address] [place] [address] MCH (RBC) [Entitic mass] 30.4 pg Normal 27.0-34.0 [facility] Comment on above: Performed By: #### 2 [id number] #### [facility] [address] [place] [address] MCHC (RBC) [Mass/Vol] 34.2 g/dL Normal 31.4-36.0 [facility] Comment on above: Performed By: #### 2 [id number] #### [facility] [address] [place] [address] MCV (RBC) [Entitic vol] 88.8 fL Normal 80.0-100.[address] [facility] Comment on above: Performed By: #### 2 [id number] #### [facility] [address] [place] [address] Monocytes (Bld) [#/Vol] 0.5 E9/L Normal 0.2-1.[address] [facility] Comment on above: Performed By: #### 2 [id number] #### [facility] [address] [place] [address] Neutrophils (Bld) [#/Vol] 7.0 E9/L Normal 2.0-7.5 [facility] Comment on above: Performed By: #### 2 [id number] #### [facility] [address] [place] [address] Neutrophils/100 WBC (Bld) 72.0 % Normal 36.0-75.0 [facility] Comment on above: Performed By: #### 2 522108 #### [facility] [address] [place] [address] Platelet mean volume (Bld) [Entitic vol] 8.1 fL Normal 6.4-10.8 [facility] Comment on above: Performed By: #### 2 [id number] #### [facility] [address] [place] [address] Platelets (Bld) [#/Vol] 202.0 E9/L Normal 150.0-500.0 [facility] Comment on above: Performed By: #### 2 [id number] #### [facility] [address] [place] [address] RBC (Bld) [#/Vol] 5.0 E12/L Normal 4.3-5.9 [facility] Comment on above: Performed By: #### 2 [id number] #### [facility] [address] [place] [address] WBC corrected for nucl RBC Auto (Bld) [#/Vol] 9.8 E9/L Normal 4.0-11.0 [facility] Comment on above: Performed By: #### 2 [id number] #### [facility] [address] [place] [address] CHEMISTRYOrdered By: SYSTEM SYSTEM on 12-28-2023 Albumin [...] Lymph nodes: No abdominal or pelvic lymphadenopathy. Mesentery/Peritoneum /Retroperitoneum: No ascites or mass. Report Vasculature: The [...] 300 Contrast amount in ml's: 100 Normal [facility] Consent for Treatmenton -2 Consent for Treatment [id number] #1.00TIFF Normal [facility] Discharge Instructionson Discharge Instructions [id number]# 1.00TIFF Normal [facility] ED Clinical Summaryon 2023 ED Clinical Summary [place] [id number] ED Clinical Summary Person Information [facility]: [facility] Age[facility] 28 Years : 1995 Sex: Female Language: Chilean PCP: SHAWNA HEALY CNP Marital Status: Phone: [phone] Visit Id: Visit Reason: Nausea; Abdominal pain; [...] 12/28/2023 15:06:07 12/28/2023 15:06:07 12/28/2023 15:06:07 [address] [place] [place] [id number] PHYS DOC NOTES: MEDICAL INFORMATION: Prescriptions Given: New Medications [id number], [address] [place], [place] [id number], [phone] dicyclomine (Bentyl 10 mg Cap) 1 Capsules By Mouth 4 times a day for 7 Days. Refills: 0. pantoprazole (Protonix 40 mg Tab-DR) 1 Tablets By Mouth every day. Refills: 0. sucralfate (Carafate 1 gram Tab) 1 Tablets By Mouth 4 times a day for 7 Days. Refills: 0. Medications to Continue Taking That Have Changed [facility] #[id number], [address] [place], [place] [id number], [phone] START: ondansetron (Zofran ODT 4 mg Tab-Dis) [...] 0. PATIENT EDUCATION INFORMATION: Instructions: Nausea, Adult, Jkpa-pk-Uvzt; Abdominal Pain, Adult Follow up: With: Address: When: Juliana Barton [address], [address] [place] [phone] Business (1) In 3 days 12/31/2023 Comments: Call for diagnosis based follow up With: Address: When: SHAWNA HEALY [address] [place] [address] [place] [phone] Business (1) In 3 days 12/31/2023 Comments: Call for diagnosis based follow up DIAGNOSIS: Diarrhea; Nausea; Pain in the abdomen Normal [facility] ED Note-Physicianon 12-28-19 ED Note-Physician Basic Information [...] and Complexity of Problems Differential Diagnosis: [] [facility] Data External documents reviewed: [] My EKG [...] day(s), # 28 cap(s), Refills(s) 0, Pharmacy: [facility] #[id number], 160, cm, 12/28/23 10:54:00 EDT, Height/Length Dosing, 81.7, kg, 12/28/23 10:54:00 EDT, Weight Dosing ketorolac, 30 mg = 1 mL, Injection, IV Push, Once, Stop date 12/28/23 12:53:00 EDT, STAT, Start date 12/28/23 12:53:00 EDT, 12/28/23 12:53:00 EDT ondansetron, 4 mg = 1 tab(s), Oral, q8hr, PRN Nausea/Vomiting, # 20 tab(s), Refills(s) 0, [facility]: [facility][id number], 160, cm, 12/28/23 10:54:00 EDT, Height/Length Dosing, [...] Daily, # 30 tab(s), Refills(s) 0, Pharmacy: [facility] #[id number], 160, cm, 12/28/23 10:54:00 EDT, Height/Length Dosing, 81.7, kg, 12/28/23 10:54:00 EDT, Weight Dosing Sodium Chloride 0.9% intravenous solution, 1,000 mL, Soln-IV, IV, Once, Stop date 12/28/23 12:53:00 EDT, STAT, Start date 12/28/23 12:53:00 EDT, Infuse over 61, minute(s) sucralfate, 1 gm = 1 tab(s), Oral, QID, X 7 day(s), # 28 tab(s), Refills(s) 0, [facility]: [facility][id number], 160, cm, 12/28/23 10:54:00 EDT, Height/Length Dosing, 81.7, kg, 12/28/23 10:54:00 EDT, Weight Dosing CT Abdomen/Pelvis w/ Contrast Medications Administered Given ketorola (more content not included)... Normal [facility] Comment on above: Result Comment: Elec tronically Signed By: Jose Rai PA-C\.br\Date and Time Signed: 12/28/23 17:52 EDT\.br\Electronically Co-Signed [...] ? Low-calorie sports drinks. ? Eat bland, kgtl-vc-fenjta foods in small amounts as you are able, such as: ? Bananas. ? Applesauce. ? Rice. ? Low-fat (lean) meats. ? [place]. ? Crackers. ? Avoid drinking fluids that have a lot of sugar or caffeine in them. This includes energy drinks, sports drinks, and soda. ? Avoid alcohol. ? Avoid spicy or fatty foods. General instructions ? Take tqtp-emv-fuqjdez and prescription medicines only as told by [...] cannot use soap and water, use hand solar sales specialist. ? Make sure that everyone in your [...] drink what your doctor tells you. Take mjpu-mnn-tixchpe and prescription medicines only as told by [...] provider. Document Revised: 12/25/2021 Document Reviewed: 12/25/2021 [employer] Patient Education ? 2022 [employer] Abdominal Pain, Adult Pain in the abdomen [...] these instructions at home: Medicines ? Take egmi-ill-dcnwysn and prescription medicines only as told by your health care provider. ? Do not take a laxative unless told by your health care provider. General instructions ? Watch your condition for any changes. ? Drink enough fluid to keep your urine (more content not included)... Normal [facility] ED Patient Summaryon 024 ED Patient Summary [address] [address] Patient Discharge Instructions Person Information Name: JACK REA Age: 28 Years Arrival Date: 12/28/2023 10:34:35 Discharge Diagnosis: Diarrhea; Nausea; Pain in the abdomen Primary Care Physician: SHAWNA HELAY CNP Provider Information Primary Provider: Mamta Us M.D. [employer] Relationship Manager:None The exam and treatment you received in the Emergency Department were for an urgent problem and are not intended as complete care. It is important that you follow up with a doctor, nurse practitioner, or physician?s photography assistant for ongoing care. If your symptoms [...] Follow-up Instructions: With: Address: When: Juliana Barton [address] [place] [address], [address] [place] [phone] [phone] Business (1) In 3 days 12/31/2023 Comments: Call Dr for diagnosis based follow up With: Address: When: SHAWNA HEALY [address] [place] [phone] Business (1) In 3 days 12/31/2023 Comments: Call Dr for diagnosis based follow up In the event that this physician does not participate in your insurance network, please consult with your insurance company to find a nearby participating provider. Patient Education Materials: Nausea, Adult, Ukal-xh-Nrqv; Abdominal Pain, Adult A MESSAGE TO ALL PATIENTS REGARDING OPIOIDS PRESCRIPTION OPIOIDS: WHAT YOU NEED TO KNOW Prescription opioids can be used to help relieve pholdhce-ee-njnqkl pain and are often prescribed following a [...] guidance from the Food and Drug Administration (www.fda.gov/Drugs/R esourcesForYou). ? Visi (more content not included)... Normal [facility] HEMATOLOGYOrdered By: SYSTEM SYSTEM on 12-28-2023 Basophils/100 [...] 12-28-2023 Albumin [Mass/Vol] 4.4 g/dL Normal 3.3-5.0 [facility] Comment on above: Performed By: #### 2 [id number] #### [facility] [address] [place] [address] Albumin/Globulin (S) [Mass conc ratio] 2.1 Normal 1.1-2.2 [facility] Comment on above: Performed By: #### 2 [id number] #### [facility] [address] [place] [address] ALP [Catalytic activity/Vol] 80 Int._Unit/L Normal 21-98 [facility] Comment on above: Performed By: #### 2 [id number] #### [facility] [address] [place] [address] ALT No additional P-5'-P [Catalytic activity/Vol] 20 Int._Unit/L Normal 6-46 [facility] Comment on above: Performed By: #### 2 [id number] #### [facility] [address] [place] [address] AST [Catalytic activity/Vol] 20 Int._Unit/L Normal 5-43 [facility] Comment on above: Performed By: #### 2 [id number] #### [facility] [address] [place] [address] Bilirubin [Mass/Vol] 0.7 mg/dL Normal 0.0-1.1 [facility] Comment on above: Performed By: #### 2 [id number] #### [facility] [address] [place] [address] Bilirubin.direct [Mass/Vol] 0.1 mg/dL Normal 0.0-0.4 [facility] Comment on above: Performed By: #### 2 523597 #### [facility] [facility] [address] [place] [address] Bilirubin.indirect [Mass or moles/Vol] 0.6 mg/dL Normal 0.1-0.9 [facility] Comment on above: Performed By: #### 2 [id number] #### [facility] [address] [place] [address] Globulin (S) [Mass/Vol] 2.1 g/dL Normal 1.4-4.[address] [facility] Comment on above: Performed By: #### 2 930928 #### [facility] [address] [place] [address] Protein [Mass/Vol] 6.5 g/dL Normal 6.0-7.8 [facility] Comment on above: Performed By: #### 2 341561 #### [facility] [address] [place] [address] Lipase Levelon 12-28-2023 Lipase [Catalytic activity/Vol] 31 U/L Normal 13-58 [facility] Comment on above: Performed By: #### 2 107660 #### [facility] [address] [place] [address] U BetaHcg QualOrdered By: Fredis Pineda on 12-28-2023 HCG.beta subunit (U) [Moles/Vol] Negative Normal [facility] Comment on above: Performed By: #### 2 [id number] #### [facility] [address] [place] [address] UA with Cult RflxOrdered By: SYSTEM SYSTEM on 12-28-2023 Bilirubin Ql (U) Negative Normal Negative FT UA Auto SS Comment on above: Performed By: #### 4 [id number] #### [facility] [address] [place] [address] Glucose Ql (U) Negative Normal Negative FT UA Au to SS Comment on above: Performed By: #### 4 [id number] #### [facility] [address] [place] [address] Hemoglobin Auto test strip (U) [Mass/Vol] Negative Normal Negative FT UA Aut o SS Comment on above: Performed By: #### 4 [id number] #### [facility] [address] [place] [address] Ketones Auto test strip Ql (U) Negative Normal Negative FT UA Auto SS Comment on above: Performed By: #### 4 [id number] #### [facility] [address] [place] [address] Leukocyte esterase Auto test strip Ql (U) Negative Normal Negative FT UA Auto SS Comment on above: Performed By: #### 4 [id number] #### [facility] [address] [place] [address] Nitrite Auto test strip Ql (U) Negative Normal Negative [facility] UA Auto SS Comment on above: Performed By: #### 4 [id number] #### [facility] [address] [place] [address] Protein Ql (U) Negative Normal Negative FT UA Au to SS Comment on above: Performed By: #### 4 [id number] #### [facility] [address] [place] [address] Urobilinogen (U) [Mass/Vol] Negative Normal Negative FT UA Auto SS Comment on above: Performed By: #### 4 [id number] #### [facility] [address] [place] [address] UA with Cult Rflxon 12-28-19 Clarity (U) Clear Normal Clear [facility] Comment on above: Performed By: #### 4 [id number] #### [facility] [address] [place] [address] Color (U) Colorless Abnormal Yellow [facility] Comment on above: Result Comment: Micr oscopic readings are only performed on those samples that meet specific criteria set forth by [facility]. Performed By: #### 4 [id number] #### [facility] [address] [place] [address] pH (U) 7.0 [pH] Invalid Interpretation Code 5.0-9.0 [facility] Comment on above: Performed By: #### 4 [id number] #### [facility] [address] [place], [place] [address] Specific gravity (U) [Rel density] 1.002 Invalid Interpretation Code 1.005-1.030 [facility] Comment on above: Performed By: #### 4 [id number] #### [facility] [address] [place], [place] [address] Type of Urine collection method Clean Catch Normal [facility] Comment on above: Performed By: #### 4 [id number] #### [facility] [address] [place] [address] URINALYSISOrdered By: SYSTEM SYSTEM on 12-28-2023 Clarity (U) Clear (12/28/23 11:00 AM) Normal Clear FT UA Auto SS Color (U) Colorless 1 *ABN* (12/28/23 11:00 AM) Invalid Interpretation Code Yellow FT UA Auto SS Comment on above: Interpretive Data: M icroscopic readings are only performed on those samples that meet specific criteria set forth by [facility]. pH (U) 7.0 *NA* (12/28/23 11:00 AM) Invalid Interpretation Code 5.0 - 9.0 [facility] [place]A Auto SS Specific gravity (U) [Rel density] 1.002 *NA* (12/28/23 11:00 AM) Invalid Interpretation Code 1.005 - 1.030 [facility] [place] UA Auto SS URINALYSISOrdered By: Amy Sanchez on 12-28-2023 UA Spec Desc Clean Catch (12/28/23 11:00 AM) Normal [facility] [place] UA Auto SS eGFRon 12-28-2023 eGFR 119 mL/min/1.73 m2 Normal >=59 [facility] Comment on above: Order Comment: Order added by Discern Expert. Performed By: #### 1 [id number] #### [facility] [address] [place] [address] C Urineon 02-12-2023 Bacteria identified Cx Nom [...] Locations R1: This test was performed at: [facility], [address] [place] [address], [address]- , [place], Normal [facility] Comment on above: Performed By: #### 1 [id number], [id number] #### [facility] [address] [place] [address] Auto Diffon 02-10-2023 Basophils/100 WBC (Bld) 0.6 % Normal 0.0-2.[address] [facility] Comment on above: Order Comment: Order Added by Discern Expert. Performed By: #### 2 965245, 6962766, 87023892, 7040280, 0955945, 3288195 #### [facility] [address] [place] [address] Basophils/Leukocytes Auto (Bld) [Pure # fraction] 0.1 E9/L Normal 0.0-0.2 [facility] Comment on above: Order Comment: Order Added by Discern Expert. Performed By: #### 2 339100, 3359561, 62123954, 4693788, 6578984, 2822312 #### [facility] [address] [place] [address] Eosinophils/100 WBC (Bld) 3.5 % Normal 0.0-8.0 [facility] Comment on above: Order Comment: Order Added by Discern Expert. Performed By: #### 2 961944, 0567117, 95717229, 4982582, 8197338, 5043837 #### [facility] [address] [place] [address] Eosinophils/Leukocytes Auto (Bld) [Pure # fraction] 0.4 E9/L Normal 0.0-0.5 [facility] Comment on above: Order Comment: Order Added by Discern Expert. Performed By: #### 2 943703, 8608043, 58930175, 4889172, 6412463, 2349471 #### [facility] [address] [place] [address] Lymphocytes/100 WBC (Bld) 27.3 % Normal 14.0-50.0 [facility] Comment on above: Order Comment: Order Added by Discern Expert. Performed By: #### 2 777067, 2388234, 39474306, 6435744, 5929414, 8128737 #### [facility] [address] [place] [address] Lymphocytes/Leukocytes Auto (Bld) [Pure # fraction] 2.9 E9/L Normal 1.0-4.0 [facility] Comment on above: Order Comment: Order Added by Discern Expert. Performed By: #### 2 246788, 7407019, 99190192, 9847166, 5075335, 1009048 #### [facility] [address] [place] [address] Monocytes/100 WBC (Bld) 6.7 % Normal 4.0-14.0 [facility] Comment on above: Order Comment: Order Added by Discern Expert. Performed By: #### 2 289863, 5992158, 34898889, 4667075, 2902739, 9355387 #### [facility] [address] [place] [address] Monocytes/Leukocytes Auto (Bld) [Pure # fraction] 0.7 E9/L Normal 0.2-1.0 [facility] Comment on above: Order Comment: Order Added by Discern Expert. Performed By: #### 2 551749, 7277118, 91343422, 6035973, 7067069, 7310371 #### [facility] [address] [place] [address] Neutrophils/100 WBC (Bld) 61.9 % Normal 36.0-75.0 [facility] Comment on above: Order Comment: Order Added by Discern Expert. Performed By: #### 2 369100, 8361925, 07894637, 7712375, 3613677, 3785544 #### [facility] [address] [place] [address] Neutrophils/Leukocytes Auto (Bld) [Pure # fraction] 6.7 E9/L Normal 2.0-7.5 [facility] Comment on above: Order Comment: Order Added by Discern Expert. Performed By: #### 2 454237, 5777380, 39240283, 3812511, 9282481, 8345716 #### [facility] [address] [place] [address] B hCG Qualon 02-10-2023 Beta hCG Ql Negative Normal [facility] Comment on above: Performed By: #### 2 2826425 #### [facility] [address] [place] [address] BMPon 02-10-2023 Creatinine [Mass/Vol] 0.7 mg/dL Normal 0.5-1.3 [facility] Comment on above: Performed By: #### 2 093293, 1907324, 43341701, 7079438, 3723932, 0770117 #### [facility] [address] [place] [address] Urea nitrogen [Mass/Vol] 9 mg/dL Normal 5-21 [facility] Comment on above: Performed By: #### 2 713427, 7990481, 06845630, 2342393, 8712844, 1201595 #### [facility] [address] [place] [address] Urea nitrogen/Creatinine [Mass ratio] 13 No Units Normal 10-20 [facility] Comment on above: Performed By: #### 2 113348, 5940017, 47162190, 5270557, 3541872, 0463961 #### [facility] [address] [place] [address] Anion gap [Moles/Vol] 11 mmol/L Normal 6-16 [facility] Comment on above: Performed By: #### 2 841932, 7948296, 02172457, 5488474, 8640086, 3461450 #### [facility] [address] [place] [address] Calcium [Mass/Vol] 8.8 mg/dL Low 8.9-11.1 [facility] Comment on above: Performed By: #### 2 286148, 8027158, 87658014, 1312399, 2080532, 1200994 #### [facility] [address] [place] [address] Chloride [Moles/Vol] 107 mmol/L Normal 101-111 [facility] Comment on above: Performed By: #### 2 964690, 1307784, 47071720, 0956506, 3789135, 4462434 #### [facility] [address] [place] [address] CO2 [Moles/Vol] 24 mmol/L Normal 21-31 [facility] Comment on above: Performed By: #### 2 346760, 3640902, 08897349, 4148306, 9856025, 2196439 #### [facility] [address] [place] [address] Glucose [Mass/Vol] 96 mg/dL Normal 55-199 [facility] Comment on above: Result Comment: If t his glucose result represents a fasting glucose, interpretation should refer to the following reference range: 55-99 mg/dL Performed By: #### 2 996153, 8773356, 45671785, 3999851, 0327826, 9572662 #### [facility] [address] [place] [address] Potassium [Moles/Vol] 4.0 mmol/L Normal 3.5-5.3 [facility] Comment on above: Performed By: #### 2 448743, 7312466, 14508130, 5242261, 4574578, 0736295 #### [facility] [address] [place] [address] Sodium [Moles/Vol] 138 mmol/L Normal 135-145 [facility] Comment on above: Performed By: #### 2 876879, 6718636, 01239536, 0013024, 3447308, 2107567 #### [facility] [address] [place] [address] CBC w/ Auto Diffon Erythrocyte distribution width (RBC) [Ratio] 13.1 % Normal 10.9-14.2 [facility] Comment on above: Performed By: #### 2 157967, 3372762, 17122663, 2256410, 0422272, 8805215 #### [facility] [address] [place] [address] Hematocrit (Bld) [Volume fraction] 43.3 % Normal 34.0-46.0 [facility] Comment on above: Performed By: #### 2 262614, 5809824, 55897741, 6497100, 5407577, 6618837 #### [facility] [address] [place] [address] Hemoglobin (Bld) [Mass/Vol] 15.0 g/dL Normal 12.0-16.0 [facility] Comment on above: Performed By: #### 2 093227, 6422128, 17371288, 1322227, 6279983, 7947772 #### [facility] [address] [place] [address] MCH (RBC) [Entitic mass] 31.1 pg Normal 27.0-34.0 [facility] Comment on above: Performed By: #### 2 200024, 5108620, 20772609, 6681625, 6952520, 1365453 #### [facility] [address] [place] [address] MCHC (RBC) [Mass/Vol] 34.7 g/dL Normal 31.4-36.0 [facility] Comment on above: Performed By: #### 2 498266, 4108481, 91476745, 4583236, 3916297, 4635277 #### [facility] [address] [place] [address] MCV (RBC) [Entitic vol] 89.6 fL Normal 80.0-100.0 [facility] Comment on above: Performed By: #### 2 437987, 5664422, 06851865, 7133149, 4444081, 4031081 #### [facility] [address] [place] [address] 14775 Platelet mean volume (Bld) [Entitic vol] 8.7 fL Normal 6.4-10.8 [facility] Comment on above: Performed By: #### 2 003822, 1219716, 51433623, 2321402, 0212447, 1093682 #### [facility] [address] [place] [address] Platelets (Bld) [#/Vol] 204.0 E9/L Normal 150.0-500.0 [facility] Comment on above: Performed By: #### 2 754843, 1737110, 72440620, 3021545, 3793235, 8056601 #### [facility] [address] [place] [address] RBC (Bld) [#/Vol] 4.8 E12/L Normal 4.3-5.9 [facility] Comment on above: Performed By: #### 2 242772, 4260517, 54700753, 0173728, 9861602, 7517591 #### [facility] [address] [place] [address] WBC corrected for nucl RBC Auto (Bld) [#/Vol] 10.8 E9/L Normal 4.0-11.0 [facility] Comment on above: Performed By: #### 2 963667, 8531288, 73942741, 4658780, 5231493, 3779703 #### [facility] [address] [place] [address] CHEMISTRYOrdered By: SYSTEM SYSTEM on 02-10-2023 Albumin [...] 121 mL/min/1.73 m2 Normal >=59mL/min/1 .73 m2 [facility] [place] Chem S Globulin (S) [Mass/Vol] 2.9 g/dL Normal 1.4 - 4.0 gm/dL FT Rem[facility] Protein [Mass/Vol] 6.9 g/dL Normal 6.0 - 7.8 gm/dL FT [facility] Urea nitrogen [Mass/Vol] 9 mg/dL Normal 5 - 21 mg/d L [facility] Urea nitrogen/Creatinine [Mass ratio] 13 mg/mg Normal 10 - 20 [facility] CHEMISTRYOrdered By: Milka Bowen on 02-10-2023 Anion gap [Moles/Vol] 11 mmol/L Normal 6 - 16 mEq/L F C [facility] Calcium [Mass/Vol] 8.8 mg/dL Low 8.9 - 11. 1 mg/dL [facility] Chloride [Moles/Vol] 107 mmol/L Normal 101 - 1 11 mmol/L [facility] CO2 [Moles/Vol] 24 mmol/L Normal 21 - 31 mmol/L [facility] Glucose [Mass/Vol] 96 mg/dL Normal 55 [...] dilation. Normal appendix. Lymph Nodes: No lymphadenopathy. Mesentery/peritoneum /retroperitoneum: No ascites or mass. Vasculature: No abdominal [...] Oral contrast amount in ml's: 0 Normal [facility] Consent for Treatmenton 02-01 Consent for Treatment [id number] #1.00CD:127 Normal [facility] Discharge Instructionson Discharge Instructions [id number] 7#[id number]:127 Normal [facility] ED Clinical Summaryon 2022 ED Clinical Summary [address] [address] ED Clinical Summary Person Information Name: JACK REA [place] Age: 27 Years : 1995 Sex: Female Language: Chilean PCP: NONE, XXXX Marital Status: Phone: [phone] Visit Id: Visit Reason: Vomiting; Nausea; Flank [...] 02/10/2023 03:21:57 02/10/2023 03:21:57 02/10/2023 03:21:57 ADDRESS: [address] [place] [address] [facility] [place] [id number] PHYS DOC NOTES: MEDICAL INFORMATION: Prescriptions Given: New Medications [id number], [address] [place] [id number], [phone] naproxen (naproxen 500 mg Tab) 1 Tablets [...] With: Address: When: Lev FRENCH, [address], [address] [address] Business (1) In 3 days 02/13/2023 Comments: Strain urine. Take pain medication as prescribed. Follow-up with urology DIAGNOSIS: Acute right flank pain Normal [facility] ED Note-Physicianon 02-11-20 ED Note-Physician Basic Information [...] 8-10, # 4 cap(s), Refills(s) 0, Pharmacy: [facility] #[id number], 160, cm, 02/10/23 1:25:00 EDT, Height/Length Dosing, 81.4, kg, 02/10/23 1:25:00 EDT, Weight Dosing Orders: ketorolac, 15 mg = 1 mL, Injection, IV Push, Once, Stop date 02/10/23 1:46:00 EDT, STAT, Start date 02/10/23 1:46:00 EDT, 02/10/23 1:46:00 EDT naproxen, 500 mg = 1 tab(s), Oral, BID, PRN for pain, # 20 tab(s), Refills(s) 0, Pharmacy: [facility] #[id number], 160, cm, 02/10/23 1:25:00 EDT, Height/Length Dosing, 81.4, kg, 02/10/23 1:25:00 EDT, Weight Dosing ondansetron, 4 mg = 1 tab(s), Oral, q8hr, PRN Nausea/Vomiting, # 12 tab(s), Refills(s) 0, [facility]acy: [id number], 160, cm, 02/10/23 1:25:00 EDT, Height/Length Dosing, [...] PRN Follow-up With When Contact Information Lev LACKEY In 3 days 02/13/[address] [address] Business (1) Additional Instructions: Strain urine. Take pain medication as prescribed. Follow-up with urology Patient Education Flank Pain, Adult Problem List/Past Medical History Ongoing Denies Historical No qualifying data Procedure/Surgi (more content not included)... Normal [facility] Comment on above: Result Comment: Elec tronically [...] by your health care provider. ? Take dxsl-afl-wiuradg and prescription medicines only as told by [...] Reviewed: 08/31/2021 Elsevier Patient Education ? 2022 [employer] Normal [facility] ED Patient Summaryon 023 ED Patient Summary [address] [address] Patient Discharge Instructions Person Information Name: JACK REA Age: 27 Years Arrival Date: 02/10/2023 01:16:59 Discharge Diagnosis: Acute right flank pain Primary Care Physician: NONE, XXXX Provider Information Primary Provider: Shivam Alvarez DO [employer] Relationship Manager:None The exam and treatment you received in the Emergency Department were for an urgent problem and are not intended as complete care. It is important that you follow up with a doctor, nurse practitioner, or physician?s photography assistant for ongoing care. If your symptoms become worse or you do not improve as expected and you are unable to reach your usual health care provider, you should return to the Emergency Department. We are available 24 hours a day. JACK REA has been given the following list of patient education materials, prescriptions and follow-up instructions: Follow-up Instructions: With: Address: When: Lev LACKEY [address] [place] [address], [address], [place] [id number] Business (1) In 3 days 02/13/2023 Comments: [...] opioids can be used to help relieve epsnusgs-nc-ekamvp pain and are often prescribed following a [...] guidance from the Food and Drug Administration (www.fda.gov/Drugs/R esourcesForYou). ? Visit www.cdc.gov/drugover dose to learn about the risks of opioids abuse and overdose. ? If you believe you may be struggling with addiction, tell your health home care associate and ask for guidance (more content not included)... Normal [facility] HEMATOLOGYOrdered By: SYSTEM SYSTEM on 02-10-2023 Basophils/100 WBC (Bld) 0.6 % Normal 0.0 - 2.0 % [facility] HemeAutoSS Basophils/Leukocytes Auto (Bld) [Pure # fraction] [...] E9/L Normal 150. 0 - 500.0 E9/L [facility] HemeAutoSS RBC (Bld) [#/Vol] 4.8 E12/L Normal 4.3 - 5.9 E12/L [facility] HemeAutoSS WBC corrected for nucl RBC Auto (Bld) [#/Vol] 10.8 E9/L Normal 4.0 - 11.0 E9/L FT HemeAutoSS Hep Func Panelon 02-10-2023 Albumin [Mass/Vol] 4.0 g/dL Normal 3.3-5.0 [facility] Comment on above: Performed By: #### 2 359826, 6456736, 36005516, 8232011, 0912148, 9263869 #### [facility] [address] [place] [address] Albumin/Globulin (S) [Mass conc ratio] 1.4 Normal 1.1-2.2 [facility] Comment on above: Performed By: #### 2 298911, 2544555, 38726205, 9114434, 6841589, 1103114 #### [facility] [address] [place] [address] ALP [Catalytic activity/Vol] 65 Int._Unit/L Normal 21-98 [facility] Comment on above: Performed By: #### 2 393721, 1525852, 10752674, 7496676, 9204218, 9651956 #### [facility] [address] [place] [address] ALT No additional P-5'-P [Catalytic activity/Vol] 15 Int._Unit/L Normal 6-46 [facility] Comment on above: Performed By: #### 2 353850, 2788422, 44540408, 9978071, 2104755, 3954242 #### [facility] [address] [place] [address] AST [Catalytic activity/Vol] 18 Int._Unit/L Normal 5-43 [facility] Comment on above: Performed By: #### 2 667622, 8789928, 33078727, 8614410, 4545973, 4036219 #### [facility] [address] [place] [address] Bilirubin [Mass/Vol] 0.3 mg/dL Normal 0.0-1.1 [facility] Comment on above: Performed By: #### 2 168216, 4413025, 71260953, 1188179, 1887023, 6733212 #### [facility] [address] [place], [place] [address] Bilirubin.direct [Mass/Vol] 0.1 mg/dL Normal 0.1-0.4 [facility] Comment on above: Performed By: #### 2 959126, 9302347, 92465710, 1780467, 6452496, 2896010 #### [facility] [address] [place], [place] [address] Bilirubin.indirect [Mass or moles/Vol] 0.2 mg/dL Normal 0.1-0.9 [facility] Comment on above: Performed By: #### 2 485337, 1813282, 58379281, 2154214, 1027869, 3289174 #### [facility] [address] [place] [address] Globulin (S) [Mass/Vol] 2.9 g/dL Normal 1.4-4.0 [facility] Comment on above: Performed By: #### 2 210019, 1647918, 49932033, 9328457, 4860505, 4682971 #### [facility] [address] [place] [address] Protein [Mass/Vol] 6.9 g/dL Normal 6.0-7.8 [facility] Comment on above: Performed By: #### 2 794076, 8595304, 59665472, 4106363, 4567010, 9040606 #### [facility] [address] [place] [address] Lipase Levelon 02-10-2023 Lipase [Catalytic activity/Vol] 40 U/L Normal 13-58 [facility] Comment on above: Performed By: #### 2 854854, 3834215, 88396672, 2498748, 8647747, 3138636 #### [facility] [address] [place] [address] RAD - Preliminary Cat Scan R eporton 02-10-2023 RAD - Preliminary Cat Scan Report [id number] 6#[id number]:127 Normal [facility] SEROLOGYOrdered By: Milka Bowen on 02-10-2023 Beta hCG Ql Negative (02/10/23 1:39 AM) Normal [facility] [place] Man Sero UA With Cult Reflexon 2022 Bacteria LM Ql (Urine sed) TRACE Normal Trace [facility] Comment on above: Performed By: #### 1 5700868, 5371302 #### [facility] [address] [place] [address] Bilirubin Ql (U) Negative Normal Negative [facility] Comment on above: Performed By: #### 1 0697070, 7906016 #### [facility] [address] [place] [address] Clarity (U) CLEAR Normal Clear [facility] Comment on above: Performed By: #### 1 7327212, 5100266 #### [facility] [address] [place] [address] Color (U) YELLOW Normal Yellow [facility] Comment on above: Performed By: #### 1 8919894, 0369688 #### [facility] [address] [place] [address] Epithelial cells.squamous LM.HPF (Urine sed) [#/Area] 3-4 Normal 0-2 [facility] Comment on above: Performed By: #### 1 [id number] #### [facility] [address] [place] [address] Glucose Test strip (U) [Mass/Vol] Negative Normal Negative [facility] Comment on above: Performed By: #### 1 [id number] #### [facility] [address] [place] [address] Hemoglobin Ql (U) Negative Normal Negative [facility] Comment on above: Performed By: #### 1 [id number] #### [facility] [address] [place] [address] Ketones (U) [Mass/Vol] Negative Normal Negative [facility] Comment on above: Performed By: #### 1 [id number] #### [facility] [address] [place] [address] [place].plasma/[place].R BC (Bld) [Mass ratio] 0-3 Normal 0-3 [place] Comment on above: Performed By: #### 1 [id number] #### [facility] [address] [place] [address] Mucus Ql (Urine sed) TRACE Normal [facility] Comment on above: Performed By: #### 1 [id number] #### [facility] [address] [place] [address] Nitrite Ql (U) Negative Normal Negative [place] Comment on above: Performed By: #### 1 [id number], [id number] #### [facility] [address] [place] [address] pH (U) 6.5 [pH] Invalid Interpretation Code 5.0-9.0 [facility] Comment on above: Performed By: #### 1 [id number] #### [facility] [address] [place] [address] Protein (U) [Mass/Vol] Negative Normal Negative [facility] Comment on above: Performed By: #### 1 [id number], [id number] #### [facility] [address] [place] [address] Specific gravity (U) [Rel density] 1.010 Invalid Interpretation Code 1.005-1.030 [facility] Comment on above: Performed By: #### 1 [id number] #### [facility] [address] [place] [address] Type of Urine collection method Clean Catch Normal [facility] Comment on above: Performed By: #### 1 [id number], [id number] #### [facility] [address] [place] [address] Urobilinogen Qn (U) 0.2 {Adam'U}/dL Normal 0.0-1.0 [facility] Comment on above: Performed By: #### 1 [id number], [id number] #### [facility] [address] [place] [address] WBC Auto Ql (U) 1+ Abnormal Negative [facility] Comment on above: Performed By: #### 1 [id number], [id number] #### [facility] [address] [place] [address] WBC LM.HPF (Urine sed) [#/Area] 0-5 Normal 0-5 [facility] Comment on above: Performed By: #### 1 [id number] #### [facility] [address] [place] [address] URINALYSISOrdered By: Pito Bowen on 02-10-2023 Bacteria LM Ql (Urine sed) Trace /HPF Normal Trace/HPF [facility] [place] Auto SS Bilirubin Ql (U) Negative (02/10/23 1:39 AM) Normal Negative [facility] [place]A Auto SS Clarity (U) Clear (02/10/23 1:39 AM) Normal Clear [facility] UA Auto SS Color (U) Yellow (02/10/23 1:39 AM) Normal Yellow [facility] UA Auto SS Epithelial cells.squamous LM.HPF (Urine sed) [#/Area] 3-4 /HPF Normal 0-2/HPF [facility] UA Aut o SS Glucose Test strip (U) [Mass/Vol] Negative (02/10/23 1:39 AM) Normal Negative [facility] UA Auto SS Hemoglobin Ql (U) Negative (02/10/23 1:39 AM) Normal Negative [facility] UA Auto SS Ketones (U) [Mass/Vol] Negative (02/10/23 1:39 AM) Normal Negative [facility] UA Auto SS [place].plasma/[place].R BC (Bld) [Mass ratio] 0-3 /HPF Normal 0-3/HPF [facility] UA Au to SS Mucus Ql (Urine sed) Trace (02/10/23 1:39 AM) Normal [facility] UA Auto SS Nitrite Ql (U) Negative (02/10/23 1:39 AM) Normal Negative [facility] UA Auto SS pH (U) 6.5 *NA* (02/10/23 1:39 AM) Invalid Interpretation Code 5.0 - 9.0 [facility] UA Auto SS Protein (U) [Mass/Vol] Negative (02/10/23 1:39 AM) Normal Negative [facility] UA Auto SS Specific gravity (U) [Rel density] 1.010 *NA* (02/10/23 1:39 AM) Invalid Interpretation Code 1.005 - 1.030 [facility] UA Auto SS UA Spec Desc Clean Catch (02/10/23 1:39 AM) Normal [facility] UA Auto SS Urobilinogen Qn (U) 0.9072815 {Adam'U}/dL Normal 0.0 - 1.0 EU/dL [facility] UA Auto SS WBC Auto Ql (U) 1+ *ABN* (02/10/23 1:39 AM) Invalid Interpretation Code Negative [facility] UA Auto SS WBC LM.HPF (Urine sed) [#/Area] 0-5 /HPF Normal 0-5/HPF [facility] UA Auto SS eGFRon 02-10-2023 GFR/1.73 sq M.predicted among non-blacks MDRD (S/P/Bld) [Vol rate/Area] 121 mL/min/1.73 m2 Normal >=59 [facility] Comment on above: Order Comment: Order added by Discern Expert. Result Comment: Clinical Manager [facility] wilmar kidney disease could be indicated at eGFR's of less than 60 mL/min/1.73m2. Kidney failure is indicated at less than 15 mL/min/1.73m2. Performed By: #### 2 [id number], [id number] #### [facility] [address] [place] [address] PAP ACOG PANEL 2: 20 to 28on 09-20-2021 . . Normal [facility] Comment on above: Performed By: #### 4 [id number] #### [facility] [address] [place] [address] Dr. Maury Bradley Age Gdln ACOG Testing - [facility] Comment on above: Performed By: #### 4 [id number] #### [facility] [address] [place] [address] Dr. Maury Bradley DIAGNOSIS: Comment [facility] Comment on above: Result Comment: NEGA TIVE FOR INTRAEPITHELIAL LESION OR MALIGNANCY. Performed By: #### 4 [id number] #### [facility] [address] [place] [address] Dr. Maury Bradley Methodology: Comment [facility] Comment on above: Result Comment: This liquid based ThinPrep(R) pap test was screened with the use of an image guided system. Performed By: #### 4 [id number] #### [facility] [address] [place] [address] Dr. Maury Bradley Note: Comment [facility] Comment on above: Result Comment: The Pap smear is a screening test designed to aid in the detection of premalignant and malignant conditions of the uterine cervix. It is not a diagnostic procedure and should not be used as the sole means of detecting cervical cancer. Both false-positive and false-negative reports do occur. . Performed By: #### 4 [id number] #### [facility] [address] [place] [address] Dr. Maury Bradley Performed by: Comment [facility] Comment on above: Result Comment: Jose Daniel Tracey, Human Resources Clerk (ASCP) Performed By: #### 4 [id number] #### [facility] [address] [place] [address] Dr. Maury Bradley Reflex Criteria: Comment Normal [facility] Comment on above: Result Comment: The HPV DNA reflex criteria were not met with this specimen result therefore, no HPV testing was performed. . Performed By: #### 4 [id number] #### [facility] [address] [address] [address] Maury Bradley Specimen adequacy: Comment Normal [facility] Comment on above: Result Comment: Sati sfactory for evaluation. Endocervical and/or squamous metaplastic cells (endocervical component) are present. Performed By: #### 4 [id number] #### [facility] [address] [place] [address] Dr. Maury Bradley Vital Signs Date Time Vital Sign Value Performing Clinician Facility 05-09-2024 15:42-0500 Body mass index (BMI) [Ratio] 30.15 kg/m2 Brayan Keegan DO Work Phone: [facility] 05-09-2024 15:42-0500 Body weight 80.92 kg Brayan Keegan DO Work Phone: [facility] 05-09-2024 15:42-0500 Diastolic blood pressure 70 mm[Hg] Brayan Keegan DO Work Phone: [facility] 05-09-2024 15:42-0500 Systolic blood pressure 110 mm[Hg] Brayan Keegan DO Work Phone: [facility] 05-08-2024 11:56-0500 Body mass index (BMI) [Ratio] 31.5 kg/m2 PYTHON DEVELOPER [employer] Work Phone: [facility] 05-08-2024 11:56-0500 Body temperature 97.5 [degF] PYTHON DEVELOPER [employer] Work Phone: [facility] 05-08-2024 11:56-0500 Body weight 80.73 kg PYTHON DEVELOPERPao Del Rioeramelia Work Phone: [facility] 05-08-2024 11:56-0500 Diastolic blood pressure 84 mm[Hg] PYTHON DEVELOPERPao Healy Work Phone: [facility] 05-08-2024 11:56-0500 Heart rate 86 /min PYTHON DEVELOPERPao Healy Work Phone: [facility] 05-08-2024 11:56-0500 SaO2% (BldA) [Mass fraction] 98 % PYTHON DEVELOPERPao Healy Work Phone: [facility] 05-08-2024 11:56-0500 Systolic blood pressure 126 mm[Hg] PYTHON DEVELOPERPao Healy Work Phone: [facility] 05-08-2024 11:54-0500 Body height 160.02 cm PYTHON DEVELOPERPao Healy Work Phone: [facility] 05-08-2024 11:54-0500 Respiratory rate 20 /min PYTHON DEVELOPERPao VeraUniversity of [place] Work Phone: [facility] 05-06-2024 00:15-0400 Diastolic blood pressure 74 mm[Hg] Darwin Irizarry [facility] 05-06-2024 00:15-0400 Heart rate 72 /min Darwin Irizarry [facility] 05-06-2024 00:15-0400 Mean blood pressure 87 mm[Hg] Darwin Edie [facility] 05-06-2024 00:15-0400 Nursing Progress Note Reason Other: iv left in place for outpt infusion. pt arrived with iv in place. Darwin ebindle [facility] 05-06-2024 00:15-0400 Respiratory rate 20 /min Darwin Edie [facility] 05-06-2024 00:15-0400 SaO2% (BldA) [Mass fraction] 97 % Darwin Edie [facility] 05-06-2024 00:15-0400 Systolic blood pressure 114 mm[Hg] Darwin Edie [facility] 05-05-2024 23:15-0400 Diastolic blood pressure 75 mm[Hg] Darwin Edie [facility] 05-05-2024 23:15-0400 Heart rate 67 /min Darwin Edie [facility] 05-05-2024 23:15-0400 Mean blood pressure 88 mm[Hg] Darwin Edie [facility] 05-05-2024 23:15-0400 Respiratory rate 20 /min Darwin Edie [facility] 05-05-2024 23:15-0400 SaO2% (BldA) [Mass fraction] 96 % Darwin Edie [facility] 05-05-2024 23:15-0400 Systolic blood pressure 114 mm[Hg] Darwin Edie [facility] 05-05-2024 22:39-0400 Diastolic blood pressure 78 mm[Hg] Darwin Edie [facility] 05-05-2024 22:39-0400 Heart rate 59 /min Darwin Edie [facility] 05-05-2024 22:39-0400 Mean blood pressure 84 mm[Hg] Darwin Edie [facility] 05-05-2024 22:39-0400 Nursing Progress Note Reason Other: states headache is better. still slightly dizzy Darwin Edie [facility] 05-05-2024 22:39-0400 Respiratory rate 19 /min Darwin Edie [facility] 05-05-2024 22:39-0400 SaO2% (BldA) [Mass fraction] 97 % Darwin Edie [facility] 05-05-2024 22:39-0400 Systolic blood pressure 95 mm[Hg] Darwin Edie [facility] 05-05-2024 21:02-0400 Body temperature 97.7 [degF] Darwin Edie [facility] 05-05-2024 21:02-0400 Heart rate 91 /min Darwin Edie [facility] 05-05-2024 21:02-0400 Respiratory rate 16 /min Darwin Edie [facility] 05-02-2024 22:41-0400 Diastolic blood pressure 76 mm[Hg] Kaylinn Dokken [facility] 05-02-2024 22:41-0400 Heart rate 86 /min Kaylinn Dokken [facility] 05-02-2024 22:41-0400 Mean blood pressure 93 mm[Hg] Kaylinn Dokken [facility] 05-02-2024 22:41-0400 Nursing Progress Note Reason Other: taking ice chips Kaylinn Dokken [facility] 05-02-2024 22:41-0400 SaO2% (BldA) [Mass fraction] 98 % Kaylinn Dokken [facility] 05-02-2024 22:41-0400 Systolic blood pressure 126 mm[Hg] Kaylinn Dokken [facility] 05-02-2024 22:02-0400 Diastolic blood pressure 73 mm[Hg] Kaylinn Dokken [facility] 05-02-2024 22:02-0400 Heart rate 78 /min Kaylinn Dokken [facility] 05-02-2024 22:02-0400 Mean blood pressure 90 mm[Hg] Kaylinn Dokken [facility] 05-02-2024 22:02-0400 Nursing Progress Note Reason Other: complains of nausea and ppain 02/10 Kaylinn Dokken [facility] 05-02-2024 22:02-0400 SaO2% (BldA) [Mass fraction] 98 % Kaylinn Dokken [facility] 05-02-2024 22:02-0400 Systolic blood pressure 125 mm[Hg] Kaylinn Dokken [facility] 05-02-2024 21:00-0400 Diastolic blood pressure 77 mm[Hg] Kaylinn Dokken [facility] 05-02-2024 21:00-0400 Heart rate 63 /min Kaylinn Dokken [facility] 05-02-2024 21:00-0400 Mean blood pressure 92 mm[Hg] Kaylinn Dokken [facility] 05-02-2024 21:00-0400 Systolic blood pressure 122 mm[Hg] Kaylinn Dokken [facility] 05-02-2024 18:57-0400 Body temperature 98.6 [degF] Kaylinn Dokken [facility] 05-02-2024 18:57-0400 Heart rate 87 /min Jesica Mccabe [facility] 05-02-2024 18:57-0400 Respiratory rate 16 /min Jesica Mccabe [facility] 05-01-2024 17:15-0400 Body mass index (BMI) [Ratio] 31.43 kg/m2 Dara Aviles [employer]SEMBLER Work Phone: [facility] 05-01-2024 17:15-0400 Body temperature 97.81 [degF] Dara Aviles [employer] ASSEMBLER Work Phone: [facility] 05-01-2024 17:15-0400 Body weight 84.37 kg Dara Aviles [employer] ASSEMBLER Work Phone: [facility] 05-01-2024 17:15-0400 Diastolic blood pressure 80 mm[Hg] Dara Aviles [employer] CASKET ASSEMBLER Work Phone: [facility] 05-01-2024 17:15-0400 Heart rate 88 /min Dara Aviles [employer] ASSEMBLER Work Phone: [facility] 05-01-2024 17:15-0400 SaO2% (BldA) [Mass fraction] 98 % Dara Aviles [employer] ASSEMBLER Work Phone: [facility] 05-01-2024 17:15-0400 Systolic blood pressure 124 mm[Hg] Dara Aviles [employer] ASSEMBLER Work Phone: [facility] 04-17-2024 15:40-0400 Body height 160.02 cm PYTHON DEVELOPER Shawna Easterwood Work Phone: [facility] 04-17-2024 15:40-0400 Body mass index (BMI) [Ratio] 32.8 kg/m2 PYTHON DEVELOPER Shawna Easterwood Work Phone: [facility] 04-17-2024 15:40-0400 Body temperature 97.2 [degF] PYTHON DEVELOPER Shawna Easterwood Work Phone: [facility] 04-17-2024 15:40-0400 Body weight 83.91 kg PYTHON DEVELOPER Shawna Easterwood Work Phone: [facility] 04-17-2024 15:40-0400 Diastolic blood pressure 76 mm[Hg] PYTHON DEVELOPER Shawna Easterwood Work Phone: [facility] 04-17-2024 15:40-0400 Heart rate 90 /min PYTHON DEVELOPER Shawna Easterwood Work Phone: [facility] 04-17-2024 15:40-0400 Respiratory rate 20 /min PYTHON DEVELOPER Shawna Easterwood Work Phone: [facility] 04-17-2024 15:40-0400 SaO2% (BldA) [Mass fraction] 98 % PYTHON DEVELOPER Shawna Easterwood Work Phone: [facility] 04-17-2024 15:40-0400 Systolic blood pressure 120 mm[Hg] PYTHON DEVELOPER Shawna Easterwood Work Phone: [facility] 04-05-2024 09:30-0400 Blood Pressure Location [employer] [facility] 04-05-2024 09:30-0400 Diastolic blood pressure 72 mm[Hg] [employer] [facility] 04-05-2024 09:30-0400 Heart rate 78 /min Mohalison Srli [facility] 04-05-2024 09:30-0400 Systolic blood pressure 105 mm[Hg] [employer] [facility] 03-19-2024 14:51-0400 Body height 160.02 cm [facility] 03-19-2024 14:51-0400 Body mass index (BMI) [Ratio] 33.5 kg/m2 [facility] 03-19-2024 14:51-0400 Body temperature 98.1 [degF] [facility] 03-19-2024 14:51-0400 Body weight 85.72 kg [facility] 03-19-2024 14:51-0400 Diastolic blood pressure 72 mm[Hg] [facility] 03-19-2024 14:51-0400 Heart rate 64 /min [facility] 03-19-2024 14:51-0400 Respiratory rate 20 /min [facility] 03-19-2024 14:51-0400 SaO2% (BldA) [Mass fraction] 97 % [facility] 03-19-2024 14:51-0400 Systolic blood pressure 118 mm[Hg] [facility] 03-13-2024 15:49-0400 Body height 160.02 cm [facility] 03-13-2024 15:49-0400 Body mass index (BMI) [Ratio] 33.3 kg/m2 [facility] 03-13-2024 15:49-0400 Body temperature 98.2 [degF] [facility] 03-13-2024 15:49-0400 Body weight 85.27 kg [facility] 03-13-2024 15:49-0400 Diastolic blood pressure 80 mm[Hg] [facility] 03-13-2024 15:49-0400 Heart rate 81 /min [facility] 03-13-2024 15:49-0400 Respiratory rate 20 /min [facility] 03-13-2024 15:49-0400 SaO2% (BldA) [Mass fraction] 97 % [facility] 03-13-2024 15:49-0400 Systolic blood pressure 118 mm[Hg] [facility] 01-10-2024 13:25-0400 Blood Pressure Location Juliana Barton [facility] 01-10-2024 13:25-0400 Diastolic blood pressure 80 mm[Hg] Juliana Barton [facility] 01-10-2024 13:25-0400 Heart rate 78 /min Juliana Barton [facility] 01-10-2024 13:25-0400 Respiratory rate 18 /min Juliana Barton [facility] 01-10-2024 13:25-0400 Systolic blood pressure 124 mm[Hg] Juliana Barton [facility] 12-28-2023 15:03-0400 Heart rate 68 /min [facility] 12-28-2023 14:30-0400 Diastolic blood pressure 72 mm[Hg] [facility] 12-28-2023 14:30-0400 Heart rate 68 /min [facility] 12-28-2023 14:30-0400 Mean blood pressure 90 mm[Hg] [facility] 12-28-2023 14:30-0400 Respiratory rate 18 /min [facility] 12-28-2023 14:30-0400 SaO2% (BldA) [Mass fraction] 97 % [facility] 12-28-2023 14:30-0400 Systolic blood pressure 125 mm[Hg] [facility] 12-28-2023 13:30-0400 Diastolic blood pressure 78 mm[Hg] [facility] 12-28-2023 13:30-0400 Mean blood pressure 94 mm[Hg] [facility] 12-28-2023 13:30-0400 Respiratory rate 18 /min [facility] 12-28-2023 13:30-0400 SaO2% (BldA) [Mass fraction] 98 % [facility] 12-28-2023 13:30-0400 Systolic blood pressure 125 mm[Hg] [facility] 12-28-2023 12:40-0400 Diastolic blood pressure 75 mm[Hg] [facility] 12-28-2023 12:40-0400 Heart rate 89 /min [facility] 12-28-2023 12:40-0400 Mean blood pressure 94 mm[Hg] [facility] 12-28-2023 12:40-0400 Respiratory rate 20 /min [facility] 12-28-2023 12:40-0400 Systolic blood pressure 133 mm[Hg] [facility] 12-28-2023 10:47-0400 Body temperature 98.42 [degF] [facility] 12-28-2023 10:47-0400 Heart rate 95 /min [facility] 11-29-2023 13:03-0400 Body height 160.02 cm [facility] 11-29-2023 13:03-0400 Body mass index (BMI) [Ratio] 32.2 kg/m2 [facility] 11-29-2023 13:03-0400 Body temperature 99.1 [degF] [facility] 11-29-2023 13:03-0400 Body weight 82.55 kg [facility] 11-29-2023 13:03-0400 Diastolic blood pressure 80 mm[Hg] [facility] 11-29-2023 13:03-0400 Heart rate 89 /min [facility] 11-29-2023 13:03-0400 Respiratory rate 20 /min [facility] 11-29-2023 13:03-0400 SaO2% (BldA) [Mass fraction] 97 % [facility] 11-29-2023 13:03-0400 Systolic blood pressure 122 mm[Hg] [facility] 03-01-2023 08:45-0400 Body height 160.02 cm [facility] Other [employer] Other 03-01-2023 08:45-0400 Body mass index (BMI) [Ratio] 31.35 kg/m2 Shawna Del Rioeramelia Other [employer] Other 03-01-2023 08:45-0400 Body temperature 97.2 [degF] Shawna Quangeramelia Other [employer] Other 03-01-2023 08:45-0400 Body weight 80.29 kg Shawna Healy Other [employer] Other 03-01-2023 08:45-0400 Diastolic blood pressure 72 mm[Hg] Shawna Qunageramelia Other [employer] Other 03-01-2023 08:45-0400 Respiratory rate 20 /min [facility] Vera[facility] [place] Other [employer] Other 03-01-2023 08:45-0400 SaO2% (BldA) [Mass fraction] 99 % Shawna Del [employer] Other [employer] Other 03-01-2023 08:45-0400 Systolic blood pressure 118 mm[Hg] Shawna Quangeramelia Other [employer] Other 02-10-2023 03:15-0400 Diastolic blood pressure 81 mm[Hg] Shivam Alvarez [facility] 02-10-2023 03:15-0400 Heart rate 67 /min Shivam Alvarez [facility] 02-10-2023 03:15-0400 Mean blood pressure 93 mm[Hg] Shivam Alvarez [facility] 02-10-2023 03:15-0400 Respiratory rate 17 /min Shivam Alvarez [facility] 02-10-2023 03:15-0400 SaO2% (BldA) [Mass fraction] 96 % Shivam Antonio [facility] 02-10-2023 03:15-0400 Systolic blood pressure 118 mm[Hg] Shivam Antonio [facility] 02-10-2023 02:25-0400 Diastolic blood pressure 85 mm[Hg] Shivam Antonio [facility] 02-10-2023 02:25-0400 Heart rate 97 /min Shivam Antonio [facility] 02-10-2023 02:25-0400 Mean blood pressure 98 mm[Hg] Shivam Antonio [facility] 02-10-2023 02:25-0400 Respiratory rate 18 /min Shivam Antonio [facility] 02-10-2023 02:25-0400 SaO2% (BldA) [Mass fraction] 99 % Shivam Antonio [facility] 02-10-2023 02:25-0400 Systolic blood pressure 123 mm[Hg] Shivam Antonio [facility] 02-10-2023 01:55-0400 Diastolic blood pressure 78 mm[Hg] Shivam Antonio [facility] 02-10-2023 01:55-0400 Heart rate 79 /min Shivam Antonio [facility] 02-10-2023 01:55-0400 Mean blood pressure 90 mm[Hg] Shivam Antonio [facility] 02-10-2023 01:55-0400 Respiratory rate 19 /min Shivam Antonio [facility] 02-10-2023 01:55-0400 SaO2% (BldA) [Mass fraction] 98 % Shivam Alvarez [facility] 02-10-2023 01:55-0400 Systolic blood pressure 113 mm[Hg] Shivam Alvarez [facility] 02-10-2023 01:21-0400 Body temperature 98.96 [degF] Shivam Alvarez [facility] 02-10-2023 01:21-0400 Heart rate 88 /min Shivam Alvarez [facility] 12-28-2021 11:30-0400 Body height 160.02 cm [email or web address] Other [employer] Other 12-28-2021 11:30-0400 Body mass index (BMI) [Ratio] 28.87 kg/m2 [email or web address] Other [employer] Other 12-28-2021 11:30-0400 Body temperature 98.4 [degF] Shawna Streem Other [employer] Other 12-28-2021 11:30-0400 Body weight 73.94 kg Shawna Streem Other [employer] Other 12-28-2021 11:30-0400 Diastolic blood pressure 82 mm[Hg] Shawna [facility]zvieh24erUniversity [facility] [place] Other [employer] Other 12-28-2021 11:30-0400 Respiratory rate 20 /min Shawna Streem Other [employer] Other 12-28-2021 11:30-0400 SaO2% (BldA) [Mass fraction] 99 % Shawna Streem Other [employer] Other 12-28-2021 11:30-0400 Systolic blood pressure 120 mm[Hg] Shawna Healy Other [facility] [employer] Other Encounters Encounter Date Encounter Type Care Provider Facility Start: 05-28-2024 ambulatory DAMION MEHTA Facility:[facility] Start: 05-10-2024 End: 05-10-2024 Emergency department patient visit Kaz Miner Facility:[facility] Start: 05-09-2024 End: 05-09-2024 Office outpatient visit 15 minutes Brayan Keegan DO Work Phone: [facility] Comment on above: Pelvic pain in femal e; Breast pain; Vaginal odor; Acute bilateral low back pain with bilateral sciatica Start: 05-09-2024 End: 05-09-2024 ambulatory BRAYAN KEEGAN Not Available Start: 05-09-2024 End: 05-09-2024 Bamboo flowsheet Brayan Keegan DO Work Phone: [facility] Start: 05-09-2024 End: 05-11-2024 Bamboo flowsheet Brayan Keegan DO Work Phone: [facility] Start: 05-09-2024 End: 05-11-2024 External Result Encounter Brayan Keegan DO Work Phone: [facility] External Department Unsolicited Start: 05-08-2024 Non-patient / Non-visit YOVANI Healy Work Phone: [facility] [place] Work Phone: Start: 05-08-2024 End: 05-08-2024 Departed Referred YOVANI Healy Work Phone: [facility] [facility] [place] Work Phone: Start: 05-08-2024 End: 05-08-2024 ambulatory YOVANI Healy Work Phone: [facility] Work Phone: Start: 05-08-2024 End: 05-08-2024 Patient encounter procedure PYTHON DEVELOPER Shawna Healy Work Phone: [facility] Work Phone: Start: 05-05-2024 End: 05-06-2024 Emergency department patient visit Darwin Irizarry [facility] Start: 05-05-2024 ambulatory KATHY-Tk Garcia [place]ility[place] [place] Start: 05-04-2024 Non-patient / Non-visit PYTHON DEVELOPER Sonia [facility] Work Phone: [facility] Work Phone: Start: 05-04-2024 End: 05-05-2024 [facility] Start: 05-03-2024 Non-patient / Non-visit PYTHON DEVELOPER Sonia [facility] Work Phone: [facility] Work Phone: Start: 05-02-2024 End: 05-02-2024 Emergency department patient visit Jesica Mccabe [facility] Start: 05-01-2024 End: 05-01-2024 ambulatory DARA AVILES Not Available Start: 05-01-2024 End: 05-01-2024 Office outpatient visit 25 minutes Dara Aviles [employer]SEMBLER Work Phone: [facility] Comment on above: Dysuria (Primary Dx) ; Bladder spasms Start: 04-26-2024 End: 04-27-2024 Pre-admission assessment Luis Mckee [facility] Start: 04-21-2024 Non-patient / Non-visit PYTHON DEVELOPER Sonia Healy Work Phone: [facility] Work Phone: Start: 04-21-2024 End: 04-21-2024 ambulatory IRIS HEALY [place] [place] Start: 04-21-2024 End: 04-21-2024 Patient encounter procedure SHAWNA HEALY [facility] Start: 04-17-2024 End: 04-17-2024 ambulatory PYTHON DEVELOPER [facility] Work Phone: [facility] Work Phone: Start: 04-17-2024 End: 04-17-2024 Patient encounter procedure PYTHON DEVELOPER Shawna Healy Work Phone: [facility] Work Phone: Start: 04-10-2024 ambulatory IRIS HEALY Fac ility:[facility] [place] Start: 04-06-2024 ambulatory DO Kaylinn Dokken Facil ity:[facility] Start: 04-05-2024 End: 04-05-2024 ambulatory Juliana Barton [facility] Start: 04-05-2024 End: 04-05-2024 Patient encounter procedure Juliana Barton [facility] Start: 03-26-2024 End: 03-26-2024 Patient encounter procedure PYTHON DEVELOPER Shawna Healy Work Phone: [facility] [place] Work Phone: Start: 03-26-2024 End: 03-26-2024 ambulatory PYTHON DEVELOPER Shawna Healy Work Phone: [facility] Work Phone: Start: 03-23-2024 ambulatory DO Kaylinn Dokken Facil ity:NIKO Mehreen Start: 03-20-2024 End: 03-21-2024 Emergency department patient visit DO Jamesdemario Hien Emmataya [place] [place] Start: 03-19-2024 End: 03-19-2024 ambulatory [facility] Work Phone: Start: 03-19-2024 End: 03-19-2024 Patient encounter procedure [facility] Work Phone: Start: 03-14-2024 Non-patient / Non-visit [facility] Work Phone: Start: 03-14-2024 End: 03-14-2024 ambulatory SUPERVISOR FILM PROCESSING SHAWNA QUANGDARRYL Facility[place] [place] Start: 03-14-2024 End: 03-14-2024 Patient encounter procedure [facility] Start: 03-13-2024 End: 03-13-2024 ambulatory [facility] Work Phone: Start: 03-13-2024 End: 03-13-2024 Patient encounter procedure [facility] Work Phone: Start: 01-10-2024 End: 01-10-2024 ambulatory Juliana Barton Facility:[facility] Start: 01-10-2024 End: 01-10-2024 Patient encounter procedure Juliana Barton [facility] Start: 12-30-2023 End: 12-30-2023 ambulatory SUPERVISOR FILM PROCESSING RICH NUNEZ Facility:[facility] Tiffany le Start: 12-28-2023 End: 12-28-2023 Emergency department patient visit Mamta Tommy Abeba [facility] Start: 12-28-2023 End: 12-28-2023 Patient encounter procedure TAYA BALDERRAMA [facility] Start: 12-28-2023 End: 12-28-2023 ambulatory TAYA BALDERRAMA Facility:[facility] Start: 11-29-2023 End: 11-29-2023 ambulatory [facility] Work Phone: Start: 11-29-2023 End: 11-29-2023 Patient encounter procedure [facility] Work Phone: Start: 10-26-2023 End: 10-26-2023 ambulatory SIXTO Sonia ORELLANA Not Available Start: 04-06-2023 End: 04-06-2023 [place]ulatory [place] Other [employer] Other Start: 04-06-2023 [facility] Start: 03-01-2023 End: 03-01-2023 ambulatory Shawna [place] Other [employer] Other Start: 03-01-2023 Office outpatient vi sit [facility] Start: 03-01-2023 [facility] Start: 02-10-2023 End: 02-10-2023 Emergency department patient visit Shivam Alvarez [facility] Start: 12-28-2021 End: 12-28-2021 ambulatory Shawna [place] Other [employer] Other Start: 12-28-2021 Encounter for genera l adult medical examination without abnormal findings [facility] Start: 12-28-2021 Initial preventive medicine new pt age 18-39yrs [facility]a [facility] Start: 09-14-2021 End: 09-14-[address] RBAYAN ALLISON Facility:[facility] Procedures Date Procedure Procedure Detail Performing Clinician Start: 05-09-2024 RECURRENT VAGINITIS (HTRX) Brayan Scott O Work Phone: Start: 05-09-2024 End: 05-09-2024 Urnls dip stick/tablet rgnt non-auto w/o micrscp Brayan Keegan DO Work Phone: Start: 05-01-2024 URINARY TRACT INFECTION (HTRX) Sacha Montilla DO Work Phone: Start: 05-01-2024 Urnls dip stick/tablet rgnt auto w/o microscopy Sacha Abbi Montilla DO Work Phone: Start: 03-26-2024 Bacteria identified in Urine by Culture YOVANI Healy Work Phone: Start: 03-26-2024 Ultrasonography of bilateral kidneys YOVANI Healy Work Phone: Start: 03-14-2024 C Urine Start: 07-04-1998 Tonsillectomy and adenoidectomy Shivam Alvarez History of tonsillectomy History of tonsillectomy and adenoidectomy Plan of Treatment Date Care Activity Detail Author Start: 05-22-2024 End: 05-22-2024 Patient encounter procedure 05/22/2024 9:00 AM EST Office Visit [facility] [address] [place] [address] Jessy Williamson PA [address] [place] [address] [facility] Start: 05-17-2024 End: 05-17-2024 Professional / ancillary services management 05/17/2024 9:30 AM EST Ancillary Procedure [facility] [address] [place] [id number] [facility] Start: 05-09-2024 End: 05-09-2024 Patient encounter procedure [facility] Comment on above: Arrived Start: 05-09-2024 End: 05-09-2025 SURESWAB(R) ADVANCED VAGINITIS PLUS, TMA SURESWAB(R) ADVANCED VAGINITIS PLUS, TMA Pathology and Cytology Routine Pelvic pain in female Expected: 05/09/2024 (Approximate), Expires: 05/09/2025 [facility] Work Phone: Comment on above: Expected: 05/09/2024 (Approximate), Expires: 05/09/2025 Start: 05-09-2024 End: 05-09-2025 US for US PELVIS-TRANSVAG IF INDICATED Imaging Routine Pelvic pain in female Expected: 05/09/2024 (Approximate), Expires: 05/09/2025 [facility] Comment on above: Expected: 05/09/2024 (Approximate), Expires: 05/09/2025 Start: 05-08-2024 Bacteria identified in Urine by Culture Urine Culture [facility] Start: 05-08-2024 Patient referral [facility] Work Phone: Start: 05-08-2024 End: 05-08-2024 Urine culture [facility] Start: 05-08-2024 [facility] Start: 03-26-2024 Bacteria identified in Urine by Culture [facility] Bacteria identified in Urine by Culture [facility] Bacteria identified in Urine by Culture [facility] Cefuroxime free [Mass/volume] in Serum or Plasma [facility] CHLAMYDIA TRACHOMATI S (GENITO/STI) CHLAMYDIA TRACHOMATIS (GENITO/STI) Lab Routine Pelvic pain in female Ordered: 05/09/2024 [facility] Comment on above: Ordered: 05/09/2024 MR Unspecified body region [facility] Neisseria gonorrhoea e DNA [Presence] in Unspecified specimen by TOM with probe detection Neisseria gonorrhea DNA probe, direct Lab Routine Pelvic pain in female Ordered: 05/09/2024 [facility] Comment on above: Ordered: 05/09/2024 Patient Education Low back pain in adults [facility] Work Phone: Patient referral [facility] Work Phone: Rheumatoid factor [Units/volume] in Serum or Plasma [facility] Thiamine [Moles/volu me] in Blood [facility] Urine culture [place] XR Lumbar spine Views [facility] Immunizations Immunization Date Immunization Notes Care Provider Gabe jimenez NEGATED: Highlighted row has not occurred! 4 influenza, injectable, quadrivalent, preservative free Patient Objection Shawna Del Riodarryl Other [employer] Other Payers Date Payer Category Payer Self-pay [id number] 2023 [place] [employer] [facility] [id number] 2023 Unknown 2017 Private Health Insurance [facility] MEDICAID [id number] 2017 Unknown [id number] 2014 Medicaid [id number] 1994 Unknown [id number] 2..840.1.335006.3.579.2 .593 1994 Unknown [id number] 2.16.840.1.221849.3.579.2 .727 1994 Unknown [id number] 2.16.840.1.101565.3.579.2 1994 Unknown [id number] 2.16.840.1.444667.3.579.2 1994 Unknown [id number] 2.16.840.1.787608.3.579.2 1994 Unknown [id number] 2.16.840.1.998194.3.579.2 1994 Unknown [id number] 2.16840.1.979591.3.579.2 1994 Unknown [id number] 2.840.1.049963.3.579.2 1994 Unknown [id number] 2.840.1.319217.3.579.2 1994 Unknown [id number] 2.840.1.538545.3.579.2 1994 Unknown [id number] 2.840.1.967554.3.579.2 1994 Unknown [id number] 2.840.1.238570.3.579.2 1994 Unknown [id number] 2.16840.1.788318.3.579.2 1994 Unknown [id number] 2.16840.1.296215.3.579.2 1994 Unknown [id number] 2.16840.1.722002.3.579.2 1994 Unknown [id number] 2.16840.1.938986.3.579.2 1994 Unknown [id number] 2.16840.1.335726.3.579.2 1994 Unknown [id number] 2.16840.1.564940.3.579.2 1994 Unknown [id number] 2.16840.1.425052.3.579.2 .727 1994 Unknown [id number] 2.16.840.1.395126.3.579.2 .727 1994 Unknown [id number] 2.16.840.1.190590.3.579.2 .1259 1994 Unknown [id number] 2.16.840.1.953439.3.579.2 .9 1994 Unknown [id number] 2.16.840.1.740692.3.579.2 .1259 1994 Unknown [id number] 2.16.840.1.341682.3.579.2 .1259 1959 Unknown [id number] Unknown [id number] 2.16.840.1.629352.3.579.2 .531 Unknown [id number] 2.16.840.1.109717.3.579.2 .531 Unknown [id number] 2.16.840.1.005344.3.579.2 .531 Worker's Compensation [employer] Misc [id number] Social History Date Type Detail Facility Start: 10-26-2023 End: 05-01-2024 Sex Assigned At [facility] Start: 02-16-2021 End: 10-26-2023 Tobacco smoking status Never smoked tobacco (finding) [facility] Tobacco smoking status Never [facility] Start: 1995 Sex Assigned At Female F [facility] Tobacco [facility] Comment on above: denies Tobacco smoking status No Smokin g Status Entered [facility] Start: 10-26-2023 Tobacco use and exposure Smokeless tobacco non-user [facility] Start: 05-01-2024 End: 05-09-2024 Alcoholic beverage intake Lifetime non-drinker (finding) [facility] Start: 10-26-2023 End: 05-01-2024 History of Social function [facility] Start: 1994 Sex assigned at Not on file N [facility] Functional Status Date Assessment Result Facility 05-05-2024 Functional Status N/A [facility] 05-02-2024 Functional Status N/A [facility] 04-05-2024 Functional Status N/A [facility] 01-10-2024 Functional Status N/A [facility] 12-28-2023 Functional Status N/A [facility] 02-10-2023 Functional Status N/A [facility] Clinical Notes 12-28-2021 to 05-09-2024 Tami Gipson LPN - 05/09/2024 3:10 PM Val Ruffin LPN - 05/09/2024 3:10 PM EST Note Date & Type Note Facility 05-09-2024 History of Presen t illness Narrative Reason for Appointment: Patient ID: Jack Rea is a 29 y.o. female who presents for Pelvic Pain Patient presents today for Acute Visit. MEDICATIONS Current Outpatient Medications Medication Instructions ergocalciferol (Vitamin D2) 1.25 MG (14876 UT) capsule TAKE 1 CAPSULE BY MOUTH EVERY WEEK FOR 12 WEEKS Levonorgestrel 20 MCG/DAY intrauterine device As Directed ondansetron (ZOFRAN) 4 mg ALLERGIES Allergies Allergen Reactions Amoxicillin Hives Other Reaction(s): Hives, hives, vomiting Amoxicillin-Pot Clavulanate Other Reaction(s): Unknown Clavulanic Acid Hives Other Reaction(s): Hives, hives, vomiting Sulfa Antibiotics Hives Other Reaction(s): Hives, hives, vomiting, Unknown Sulfamethoxazole Hives Sulfamethoxazole-Trimethoprim Hives Other Reaction(s): hives, vomiting, Unknown Sulfur Hives Trimethoprim Hives Other Reaction(s): Hives, hives, vomiting PROBLEMS Active Ambulatory Problems Diagnosis Date Noted No Active Ambulatory Problems Resolved Ambulatory Problems Diagnosis Date Noted No Resolved Ambulatory Problems No Additional Past Medical History HISTORY PAST MEDICAL HISTORY SOCIAL HISTORY History reviewed. No pertinent past medical history. Social History Tobacco Use Smoking status: Never Smokeless tobacco: Never Vaping Use Vaping status: Never Used Substance Use Topics Alcohol use: Never Drug use: Never FAMILY HISTORY Family History Problem Relation Name Age of Onset Diabetes Mother SURGICAL HISTORY History reviewed. No pertinent surgical history. REVIEW OF SYSTEMS Review of Systems: Review of Systems Constitutional: Negative. HENT: Negative. Eyes: Negative. Respiratory: Negative. Cardiovascular: Negative. Gastrointestinal: Negative. Genitourinary: Negative. Musculoskeletal: Negative. Skin: Negative. Neurological: Negative. All other systems reviewed and are negative. Hematological: Negative. Endocrine: Negative. Allergic/Immunologic: Negative. OBJECTIVE Objective: Physical Exam Constitutional: Appearance: Normal appearance. She is well-developed. Genitourinary: Vulva normal. Cardiovascular: Rate and Rhythm: Normal rate and regular rhythm. Pulmonary: Effort: Pulmonary effort is normal. Breath sounds: Normal breath sounds. Abdominal: General: Bowel sounds are normal. There is no distension. Palpations: Abdomen is soft. Tenderness: There is no abdominal tenderness. There is no guarding or rebound. Musculoskeletal: General: No swelling. Normal range of motion. Right lower leg: No edema. Left lower leg: No edema. Neurological: Mental Status: She is alert and oriented to person, place, and time. Skin: General: Skin is warm and dry. Psychiatric: Mood and Affect: Mood normal. Behavior: Behavior normal. Vitals and nursing note reviewed. Exam conducted with a steam drier tender present. Vitals: Estimated body mass index is 30.15 kg/m as calculated from the following: Height as of 10/26/23: 5' 4.5 . Weight as of this encounter: 178 lb 6.4 oz. BP: 110/70 No LMP recorded. ASSESSMENT & PLAN ICD-10-CM 1. Pelvic pain in female R10.2 2. Breast pain N64.4 Pt presents with breast pain, pelvic pain, and back pain. Pelvic and breast exam performed. Cultures obtained. Pt advised to use vitamin e lotion and primrose oil for breasts. Fibrocystic breasts noted. Rx for flagyl, flexeril and ibuprofen 800 faxed to pharmacy. Pt given ultrasound to have obtained. Discussed adding pyridium. Pt to return for annual in 2 weeks. Documented by Nasima Ruffin LPN on behalf of: Brayan Allison DO documented in this encounter [facility] 05-06-2024 Hospital Discharg e instructions Patient Education 05/06/2024 00:17:32 Urinary Tract Infection, Adult Urinary Tract Infection, Adult A urinary tract infection (UTI) is an infection of any part of the urinary tract. The urinary tract includes the kidneys, ureters, bladder, and urethra. These organs make, store, and get rid of urine in the body. An upper UTI affects the ureters and kidneys. A lower UTI affects the bladder and urethra. What are the causes? Most urinary tract infections are caused by bacteria in your genital area around your urethra, where urine leaves your body. These bacteria grow and cause inflammation of your urinary tract. What increases the risk? You are more likely to develop this condition if: You have a urinary catheter that stays in place. You are not able to control when you urinate or have a bowel movement (incontinence). You are female and you: ?Use a spermicide or diaphragm for control. ?Have low estrogen levels. ?Are . You have certain genes that increase your risk. You are sexually active. You take antibiotic medicines. You have a condition that causes your flow of urine to slow down, such as: ?An enlarged prostate, if you are male. ?Blockage in your urethra. ?A kidney stone. ?A nerve condition that affects your bladder control (neurogenic bladder). ?Not getting enough to drink, or not urinating often. You have certain medical conditions, such as: ?Diabetes. ?A weak disease-fighting system (immunesystem). ?Sickle cell disease. ?Gout. ?Spinal cord injury. What are the signs or symptoms? Symptoms of this condition include: Needing to urinate right away (urgency). Frequent urination. This may include small amounts of urine each time you urinate. Pain or burning with urination. Blood in the urine. Urine that smells bad or unusual. Trouble urinating. Cloudy urine. Vaginal discharge, if you are female. Pain in the abdomen or the lower back. You may also have: Vomiting or a decreased appetite. Confusion. Irritability or tiredness. A fever or chills. Diarrhea. The first symptom in older adults may be confusion. In some cases, they may not have any symptoms until the infection has worsened. How is this diagnosed? This condition is diagnosed based on your medical history and a physical exam. You may also have other tests, including: Urine tests. Blood tests. Tests for STIs (sexually transmitted infections). If you have had more than one UTI, a cystoscopy or imaging studies may be done to determine the cause of the infections. How is this treated? Treatment for this condition includes: Antibiotic medicine. Mrpr-jqe-nvyqdqd medicines to treat discomfort. Drinking enough water to stay hydrated. If you have frequent infections or have other conditions such as a kidney stone, you may need to see a health care provider who specializes in the urinary tract (urologist). In rare cases, urinary tract infections can cause sepsis. Sepsis is a life-threatening condition that occurs when the body responds to an infection. Sepsis is treated in the hospital with IV antibiotics, fluids, and other medicines. Follow these instructions at home: Medicines Take bunn-ibq-obhnyqt and prescription medicines only as told by your health care provider. If you were prescribed an antibiotic medicine, take it as told by your health care provider. Do not stop using the antibiotic even if you start to feel better. General instructions Make sure you: ?Empty your bladder often and completely. Do not hold urine for long periods of time. ?Empty your bladder after sex. ?Wipe from front to back after urinating or having a bowel movement if you are female. Use each tissue only one time when you wipe. Drink enough fluid to keep your urine pale yellow. Keep all follow-up visits. This is important. Contact a health care provider if: Your symptoms do not get better after 1 2 days. Your symptoms go away and then return. Get help right away if: You have severe pain in your back or your lower abdomen. You have a fever or chills. You have nausea or vomiting. Summary A urinary tract infection (UTI) is an infection of any part of the urinary tract, which includes the kidneys, ureters, bladder, and urethra. Most urinary tract infections are caused by bacteria in your genital area. Treatment for this condition often includes antibiotic medicines. If you were prescribed an antibiotic medicine, take it as told by your health care provider. Do not stop using the antibiotic even if you start to feel better. Keep all follow-up visits. This is important. This information is not intended to replace advice given to you by your health care provider. Make sure you discuss any questions you have with your health care provider. Document Revised: 01/25/2021 Document Reviewed: 01/30/2021 [employer] Patient Education 2023 [employer]. 05/06/2024 00:17:32 General Headache Without Cause General Headache Without Cause A headache is pain or discomfort felt around the head or neck area. There are many causes and types of headaches. A few common types include: Tension headaches. Migraine headaches. Cluster headaches. Chronic daily headaches. Sometimes, the specific cause of a headache may not be found. Follow these instructions at home: Watch your condition for any changes. Let your health care provider know about them. Take these steps to help with your condition: Managing pain Take ihbr-pvr-wgonlzi and prescription medicines only as told by your health care provider. Treatment may include medicines for pain that are taken by mouth or applied to the skin. Lie down in a dark, quiet room when you have a headache. Keep lights dim if bright lights bother you or make your headaches worse. If directed, put ice on your head and neck area: ?Put ice in a plastic bag. ?Place a towel between your skin and the bag. ?Leave the ice on for 20 minutes, 2 3 times per day. ?Remove the ice if your skin turns bright red. This is very important. If you cannot feel pain, heat, or cold, you have a greater risk of damage to the area. If directed, apply heat to the affected area. Use the heat source that your health care provider recommends, such as a moist heat pack or a heating pad. ?Place a towel between your skin and the heat source. ?Leave the heat on for 20 30 minutes. ?Remove the heat if your skin turns bright red. This is especially important if you are unable to feel pain, heat, or cold. You have a greater risk of getting burned. Eating and drinking Eat meals on a regular schedule. If you drink alcohol: ?Limit how much you have to: ?0 1 drink a day for women who are not . ? 0 2 drinks a day for men. ?Know how much alcohol is in a drink. In the [place] one drink equals one 12 oz bottle of beer (355 mL), one 5 oz glass of wine (148 mL), or one 1 oz glass of hard liquor (44 mL). Stop drinking caffeine, or decrease the amount of caffeine you drink. Drink enough fluid to keep your urine pale yellow. General instructions Keep a headache journal to help find out what may trigger your headaches. For example, write down: ?What you eat and drink. ?How much sleep you get. ?Any change to your diet or medicines. Try massage or other relaxation techniques. Limit stress. Sit up straight, and do not tense your muscles. Do not use any products that contain nicotine or tobacco. These products include cigarettes, chewing tobacco, and vaping devices, such as e-cigarettes. If you need help quitting, ask your health care provider. Exercise regularly as told by your health care provider. Sleep on a regular schedule. Get 7 9 hours of sleep each night, or the amount recommended by your health care provider. Keep all follow-up visits. This is important. Contact a health care provider if: Medicine does not help your symptoms. You have a headache that is different from your usual headache. You have nausea or you vomit. You have a fever. Get help right away if: Your headache: ?Becomes severe quickly. ?Gets worse after moderate to intense physical activity. You have any of these symptoms: ?Repeated vomiting. ?Pain or stiffness in your neck. ?Changes to your vision. ?Pain in an eye or ear. ?Problems with speech. ?Muscular weakness or loss of muscle control. ?Loss of balance or coordination. You feel faint or pass out. You have confusion. You have a seizure. These symptoms may represent a serious problem that is an emergency. Do not wait to see if the symptoms will go away. Get medical help right away. Call your local emergency services (911 in the [place] Do not drive yourself to the hospital. Summary A headache is pain or discomfort felt around the head or neck area. There are many causes and types of headaches. In some cases, the cause may not be found. Keep a headache journal to help find out what may trigger your headaches. Watch your condition for any changes. Let your health care provider know about them. Contact a health care provider if you have a headache that is different from the usual headache, or if your symptoms are not helped by medicine. Get help right away if your headache becomes severe, you vomit, you have a loss of vision, you lose your balance, or you have a seizure. This information is not intended to replace advice given to you by your health care provider. Make sure you discuss any questions you have with your health care provider. Document Revised: 11/18/2021 Document Reviewed: 11/18/2021 Elsevier Patient Education 2023 [employer]. Follow Up Care 05/05/2024 20:54:37 With:SHAWNA HEALY Address: formerly [facility] [place] [address] [phone] Business (1) When:Within 3 Day(s) [facility] 05-06-2024 Note ED Patient Education Note Neurology General Headache Without Cause A headache is pain or discomfort felt around the head or neck area. There are many causes and types of headaches. A few common types include: ??? Tension headaches. ??? Migraine headaches. ??? Cluster headaches. ??? Chronic daily headaches. Sometimes, the specific cause of a headache may not be found. Follow these instructions at home: Watch your condition for any changes. Let your health care provider know about them. Take these steps to help with your condition: Managing pain ??? Take yrbh-mad-kpuyywy and prescription medicines only as told by your health care provider. Treatment may include medicines for pain that are taken by mouth or applied to the skin. ??? Lie down in a dark, quiet room when you have a headache. ??? Keep lights dim if bright lights bother you or make your headaches worse. ??? If directed, put ice on your head and neck area: ? Put ice in a plastic bag. ? Place a towel between your skin and the bag. ? Leave the ice on for 20 minutes, 2?3 times per day. ? Remove the ice if your skin turns bright red. This is very important. If you cannot feel pain, heat, or cold, you have a greater risk of damage to the area. ??? If directed, apply heat to the affected area. Use the heat source that your health care provider recommends, such as a moist heat pack or a heating pad. ? Place a towel between your skin and the heat source. ? Leave the heat on for 20?30 minutes. ? Remove the heat if your skin turns bright red. This is especially important if you are unable to feel pain, heat, or cold. You have a greater risk of getting burned. Eating and drinking ??? Eat meals on a regular schedule. ??? If you drink alcohol: ? Limit how much you have to: ? 0?1 drink a day for women who are not . ? 0?2 drinks a day for men. ? Know how much alcohol is in a drink. In the [place] one drink equals one 12 oz bottle of beer (355 mL), one 5 oz glass of wine (148 mL), or one 1? oz glass of hard liquor (44 mL). ??? Stop drinking caffeine, or decrease the amount of caffeine you drink. ??? Drink enough fluid to keep your urine pale yellow. General instructions ??? Keep a headache journal to help find out what may trigger your headaches. For example, write down: ? What you eat and drink. ? How much sleep you get. ? Any change to your diet or medicines. ??? Try massage or other relaxation techniques. ??? Limit stress. ??? Sit up straight, and do not tense your muscles. ??? Do not use any products that contain nicotine or tobacco. These products include cigarettes, chewing tobacco, and vaping devices, such as e-cigarettes. If you need help quitting, ask your health care provider. ??? Exercise regularly as told by your health care provider. ??? Sleep on a regular schedule. Get 7?9 hours of sleep each night, or the amount recommended by your health care provider. ??? Keep all follow-up visits. This is important. Contact a health care provider if: ??? Medicine does not help your symptoms. ??? You have a headache that is different from your usual headache. ??? You have nausea or you vomit. ??? You have a fever. Get help right away if: ??? Your headache: ? Becomes severe quickly. ? Gets worse after moderate to intense physical activity. ??? You have any of these symptoms: ? Repeated vomiting. ? Pain or stiffness in your neck. ? Changes to your vision. ? Pain in an eye or ear. ? Problems with speech. ? Muscular weakness or loss of muscle control. ? Loss of balance or coordination. ??? You feel faint or pass out. ??? You have confusion. ??? You have a seizure. These symptoms may represent a serious problem that is an emergency. Do not wait to see if the symptoms will go away. Get medical help right away. Call your local emergency services (911 in the [place] Do not drive yourself to the hospital. Summary ??? A headache is pain or discomfort felt around the head or neck area. ??? There are many causes and types of headaches. In some cases, the cause may not be found. ??? Keep a headache journal to help find out what may trigger your headaches. Watch your condition for any changes. Let your health care provider know about them. ??? Contact a health care provider if you have a headache that is different from the usual headache, or if your symptoms are not helped by medicine. ??? Get help right away if your headache becomes severe, you vomit, you have a loss of vision, you lose your balance, or you have a seizure. This information is not intended to replace advice given to you by your health care provider. Make sure you discuss any questions you have with your health care provider. Document Revised: 11/18/2021 Document Reviewed: 11/18/2021 [employer] Patient Education ? 2023 [employer]. Obstetrics and Gyneco (more content not included)... [facility] 05-05-2024 Evaluation + Plan note Extrac gemini from: Title:ED Note Author:Darwin Irizarry DO Date :05/05/24 Headache (R51.9: Headache, u nspecified) UTI (urinary tract infection) (N39.0: Urinary tract infection, site not specified) Orders: diphenhydrAMINE, 25 mg = 0.5 mL, Injection, IV Push, Once, Stop date 05/05/24 21:42:00 EDT, STAT, Start date 05/05/24 21:42:00 EDT, 05/05/24 21:42:00 EDT ketorolac, 15 mg = 1 mL, Injection, IV Push, Once, Stop date 05/05/24 21:41:00 EDT, STAT, Start date 05/05/24 21:41:00 EDT, 05/05/24 21:41:00 EDT magnesium sulfate + Dextrose 5% in Water intravenous solution 100 mL, 1 gram = 100 mL, Soln-IV, IV Piggyback, Once, Stop date 05/05/24 21:42:00 EDT, STAT, Start date 05/05/24 21:42:00 EDT, 200 mL/hr, Infuse over 30 minute(s), 05/05/24 21:42:00 EDT meclizine, 25 mg = 2 tab(s), Tab, Oral, Once, Stop date 05/05/24 22:53:00 EDT, STAT, Start date 05/05/24 22:53:00 EDT, 05/05/24 22:53:00 EDT metoclopramide, 10 mg = 2 mL, Injection, IV Push, Once, Stop date 05/05/24 21:42:00 EDT, STAT, Start date 05/05/24 21:42:00 EDT, 05/05/24 21:42:00 EDT promethazine, 12.5 mg = 1 tab(s), Oral, q8hr, PRN as needed for nausea/vomiting, # 10 tab(s), Refills(s) 0, Pharmacy: [id number], 160, cm, 05/05/24 21:07:00 EDT, Height/Length Dosing, 82.5, kg, 05/05/24 21:07:00 EDT, Weight Dosing Future Appointments Appointment Date:05/07/2024 03:30:00 PM Scheduled Provider: Location:[facility] Appointment Type:ASU IV Antibiotic (FT) Appointment Date:05/08/2024 03:30:00 PM Scheduled Provider: Location:[facility] Appointment Type:ASU IV Antibiotic (FT) Appointment Date:05/09/2024 08:00:00 AM Scheduled Provider: Location:[facility] Appointment Type:ASU IV Antibiotic (FT) Appointment Date:05/22/2024 08:15:00 AM Scheduled Provider:Luis Mckee MD Location:.[facility] Appointment Type:Cardiology New Patient (FT) [facility] 10-31-2024 Hospital Discharge instructions Patient Education 05/02/2024 23:15:43 Abdominal Pain, Adult Abdominal Pain, Adult Pain in the abdomen (abdominal pain) can be caused by many things. In most cases, it gets better with no treatment or by being treated at home. But in some cases, it can be serious. Your health care provider will ask questions about your medical history and do a physical exam to try to figure out what is causing your pain. Follow these instructions at home: Medicines Take ziji-udz-oavfwlw and prescription medicines only as told by your provider. Do not take medicines that help you poop (laxatives) unless told by your provider. General instructions Watch your condition for any changes. Drink enough fluid to keep your pee (urine) pale yellow. Contact a health care provider if: Your pain changes, gets worse, or lasts longer than expected. You have severe cramping or bloating in your abdomen, or you vomit. Your pain gets worse with meals, after eating, or with certain foods. You are constipated or have diarrhea for more than 2 3 days. You are not hungry, or you lose weight without trying. You have signs of dehydration. These may include: ?Dark pee, very little pee, or no pee. ?Cracked lips or dry mouth. ?Sleepiness or weakness. You have pain when you pee (urinate) or poop. Your abdominal pain wakes you up at night. You have blood in your pee. You have a fever. Get help right away if: You cannot stop vomiting. Your pain is only in one part of the abdomen. Pain on the right side could be caused by appendicitis. You have bloody or black poop (stool), or poop that looks like tar. You have trouble breathing. You have chest pain. These symptoms may be an emergency. Get help right away. Call 911. Do not wait to see if the symptoms will go away. Do not drive yourself to the hospital. This information is not intended to replace advice given to you by your health care provider. Make sure you discuss any questions you have with your health care provider. Document Revised: 04/06/2023 Document Reviewed: 04/06/2023 [employer] Patient Education 2023 [employer] 05/02/2024 23:15:43 Urinary Tract Infection, Adult Urinary Tract Infection, Adult A urinary tract infection (UTI) is an infection of any part of the urinary tract. The urinary tractincludes the kidneys, ureters, bladder, and urethra. These organs make, store, and get rid of urinein the body. An upper UTI affects the ureters and kidneys. A lower UTI affects the bladder and urethra. What are the causes? Most urinary tract infections are caused by bacteria in your genital area around your urethra, where urine leaves your body. These bacteria grow and cause inflammation of your urinary tract. What increases the risk? You are more likely to develop this condition if: You have a urinary catheter that stays in place. You are not able to control when you urinate or have a bowel movement (incontinence). You are female and you: ?Use a spermicide or diaphragm for control. ?Have low estrogen levels. ?Are . You have certain genes that increase your risk. You are sexually active. You take antibiotic medicines. You have a condition that causes your flow of urine to slow down, such as: ?An enlarged prostate, if you are male. ?Blockage in your urethra. ?A kidney stone. ?A nerve condition that affects your bladder control (neurogenic bladder). ?Not getting enough to drink, or not urinating often. You have certain medical conditions, such as: ?Diabetes. ?A weak disease-fighting system (immunesystem). ?Sickle cell disease. ?Gout. ?Spinal cord injury. What are the signs or symptoms? Symptoms of this condition include: Needing to urinate right away (urgency). Frequent urination. This may include small amounts of urine each time you urinate. Pain or burning with urination. Blood in the urine. Urine that smells bad or unusual. Trouble urinating. Cloudy urine. Vaginal discharge, if you are female. Pain in the abdomen or the lower back. You may also have: Vomiting or a decreased appetite. Confusion. Irritability or tiredness. A fever or chills. Diarrhea. The first symptom in older adults may be confusion. In some cases, they may not have any symptoms until the infection has worsened. How is this diagnosed? This condition is diagnosed based on your medical history and a physical exam. You may also have other tests, including: Urine tests. Blood tests. Tests for STIs (sexually transmitted infections). If you have had more than one UTI, a cystoscopy or imaging studies may be done to determine the cause of the infections. How is this treated? Treatment for this condition includes: Antibiotic medicine. Yclw-zfn-givrsrq medicines to treat discomfort. Drinking enough water to stay hydrated. If you have frequent infections or have other conditions such as a kidney stone, you may need to see a health care provider who specializes in the urinary tract (urologist). In rare cases, urinary tract infections can cause sepsis. Sepsis is a life- threatening condition that occurs when the body responds to an infection. Sepsis is treated in the hospital with IV antibiotics, fluids, and other medicines. Follow these instructions at home: Medicines Take igga-rsn-yuhkgzx and prescription medicines only as told by your health care provider. If you were prescribed an antibiotic medicine, take it as told by your health care provider. Do notstop using the antibiotic even if you start to feel better. General instructions Make sure you: ?Empty your bladder often and completely. Do not hold urine for long periods of time. ?Empty your bladder after sex. ?Wipe from front to back after urinating or having a bowel movement if you are female. Use each tissue only one time when you wipe. Drink enough fluid to keep your urine pale yellow. Keep all follow-up visits. This is important. Contact a health care provider if: Your symptoms do not get better after 1 2 days. Your symptoms go away and then return. Get help right away if: You have severe pain in your back or your lower abdomen. You have a fever or chills. You have nausea or vomiting. Summary A urinary tract infection (UTI) is an infection of any part of the urinary tract, which includes the kidneys, ureters, bladder, and urethra. Most urinary tract infections are caused by bacteria in your genital area. Treatment for this condition often includes antibiotic medicines. If you were prescribed an antibiotic medicine, take it as told by your health care provider. Do notstop using the antibiotic even if you start to feel better. Keep all follow-up visits. This is important. This information is not intended to replace advice given to you by your health care provider. Make sure you discuss any questions you have with your health care provider. Document Revised: 01/25/2021 Document Reviewed: 01/30/2021 [employer] Patient Education 2023 [employer]. Follow Up Care 05/02/2024 18:54:57 With:Lev LACKEY Address: [address] [phone] Business (1) When:05/05/2024 With:SHAWNA HEALY Address: [address] [place] [address] [place] [phone] Business (1) When:05/05/2024 [facility] 10-30-2024 NoteED Patient Education Note Gastroenterology Abdominal Pain, Adult Pain in the abdomen (abdominal pain) can be caused by many things. In most cases, it gets better with no treatment or by being treated at home. But in some cases, it can be serious. Your health care provider will ask questions about your medical history and do a physical exam to try to figure out what is causing your pain. Follow these instructions at home: Medicines ??? Take afht-djt-hdrzjuk and prescription medicines only as told by your provider. ??? Do not take medicines that help you poop (laxatives) unless told by your provider. General instructions ??? Watch your condition for any changes. ??? Drink enough fluid to keep your pee (urine) pale yellow. Contact a health care provider if: ??? Your pain changes, gets worse, or lasts longer than expected. ??? You have severe cramping or bloating in your abdomen, or you vomit. ??? Your pain gets worse with meals, after eating, or with certain foods. ??? You are constipated or have diarrhea for more than 2?3 days. ??? You are not hungry, or you lose weight without trying. ??? You have signs of dehydration. These may include: ? Dark pee, very little pee, or no pee. ? Cracked lips or dry mouth. ? Sleepiness or weakness. ??? You have pain when you pee (urinate) or poop. ??? Your abdominal pain wakes you up at night. ??? You have blood in your pee. ??? You have a fever. Get help right away if: ??? You cannot stop vomiting. ??? Your pain is only in one part of the abdomen. Pain on the right side could be caused by appendicitis. ??? You have bloody or black poop (stool), or poop that looks like tar. ??? You have trouble breathing. ??? You have chest pain. These symptoms may be an emergency. Get help right away. Call 911. ??? Do not wait to see if the symptoms will go away. ??? Do not drive yourself to the hospital. This information is not intended to replace advice given to you by your health care provider. Make sure you discuss any questions you have with your health care provider. Document Revised: 04/06/2023 Document Reviewed: 04/06/2023 [employer] Patient Education ? 2023 [employer]. Obstetrics and Gynecology Urinary Tract Infection, Adult A urinary tract infection (UTI) is an infection of any part of the urinary tract. The urinary tractincludes the kidneys, ureters, bladder, and urethra. These organs make, store, and get rid of urinein the body. An upper UTI affects the ureters and kidneys. A lower UTI affects the bladder and urethra. What are the causes? Most urinary tract infections are caused by bacteria in your genital area around your urethra, where urine leaves your body. These bacteria grow and cause inflammation of your urinary tract. What increases the risk? You are more likely to develop this condition if: ??? You have a urinary catheter that stays in place. ??? You are not able to control when you urinate or have a bowel movement (incontinence). ??? You are female and you: ? Use a spermicide or diaphragm for control. ? Have low estrogen levels. ? Are . ??? You have certain genes that increase your risk. ??? You are sexually active. ??? You take antibiotic medicines. ??? You have a condition that causes your flow of urine to slow down, such as: ? An enlarged prostate, if you are male. ? Blockage in your urethra. ? A kidney stone. ? A nerve condition that affects your bladder control (neurogenic bladder). ? Not getting enough to drink, or not urinating often. ??? You have certain medical conditions, such as: ? Diabetes. ? A weak disease-fighting system (immunesystem). ? Sickle cell disease. ? Gout. ? Spinal cord injury. What are the signs or symptoms? Symptoms of this condition include: ??? Needing to urinate right away (urgency). ??? Frequent urination. This may include small amounts of urine each time you urinate. ??? Pain or burning with urination. ??? Blood in the urine. ??? Urine that smells bad or unusual. ??? Trouble urinating. ??? Cloudy urine. ??? Vaginal discharge, if you are female. ??? Pain in the abdomen or the lower back. You may also have: ??? Vomiting or a decreased appetite. ??? Confusion. ??? Irritability or tiredness. ??? A fever or chills. ??? Diarrhea. The first symptom in older adults may be confusion. In some cases, they may not have any symptoms until the infection has worsened. How is this diagnosed? This condition is diagnosed based on your medical history and a physical exam. You may also have other tests, including: ??? Urine tests. ??? Blood tests. ??? Tests for STIs (sexually transmitted infections). If you have had more than one UTI, a cystoscopy or imaging studies may be done to determine the cause of the infections. How is this treated? Treatment for this condition includes: ??? Antib (more content not included)...[facility]10-29-2024 History of Present illness Narrative* Dara Aviles NP - 05/01/2024 5:10 PM EDT HPI: Historian of HPI: patient Jack Rea is a 29 y.o. female who presents today to the Urgent Care with the following complaints and denials which have been present for 2 day(s) pt denies vomiting, body aches, chills, or fever. Pt admits to nausea and fatigued. Pt denies any concerns for STI or chance of . C/O Denies Symptom Comments [x] [] Dysuria Burning and pressure sensation [] [x] hematuria Faint pink blood when wiping [x] [] Urinary frequency [] [x] Urinary incontinence [x] [] Urinary urgency [] [x] Genital itching [x] [] Genital discharge White/ clear discharge with vaginal odor [x] [] Back pain Slight lower back pain [x] [] Abd pain Slight abdominal cramping Additional Comments: pt has taken ibuprofen and Asprin OTC medication without relief ROS: A complete system ROS was performed and negative aside from the pertinent positives noted in the HPI and PE. Visit Vitals BP 124/80 (BP Location: Left arm, Patient Position: Sitting, BP Cuff Size: Large adult) Pulse 88 Temp 97.8 F Wt 186 lb LMP (Exact Date) SpO2 98% BMI 31.43 kg/m OB Status Having periods Smoking Status Never BSA 1.96 m Physical Exam Vitals reviewed. Constitutional: General: She is not in acute distress. Appearance: Normal appearance. HENT: Head: Normocephalic and atraumatic. Nose: Nose normal. Mouth/Throat: Mouth: Mucous membranes are moist. Pharynx: Oropharynx is clear. Eyes: Extraocular Movements: Extraocular movements intact. Conjunctiva/sclera: Conjunctivae normal. Pupils: Pupils are equal, round, and reactive to light. Cardiovascular: Rate and Rhythm: Normal rate and regular rhythm. Pulses: Normal pulses. Heart sounds: Normal heart sounds. Pulmonary: Effort: Pulmonary effort is normal. No respiratory distress. Breath sounds: Normal breath sounds. No wheezing, rhonchi or rales. Abdominal: General: Abdomen is flat. Bowel sounds are normal. There is no distension. Palpations: Abdomen is soft. There is no mass. Tenderness: There is no abdominal tenderness. There is no right CVA tenderness, left CVA tenderness, guarding or rebound. Hernia: No hernia is present. Musculoskeletal: General: Normal range of motion. Cervical back: Normal range of motion and neck supple. Skin: General: Skin is warm and dry. Findings: No rash. Neurological: General: No focal deficit present. Mental Status: She is alert and oriented to person, place, and time. Psychiatric: Mood and Affect: Mood normal. Behavior: Behavior normal. Thought Content: Thought content normal. Judgment: Judgment normal. IH Testing: An In-House UA has been obtianed: Collected by clean catch REFERENCE RANGE Leukocytes: Negative Nitrite: Negative Protein: Negative PH: 6.0 Blood: Negative Specific Porter: 1.020 Ketone: Negative Glucose: Negative Neg Neg Neg - Trace mg/dl 5.0-8.0 Neg 1.005-1.030 Neg Neg 1. Dysuria (Primary) Start the above medications as directed. Increase water intake, get plenty of rest. Advised patientthat the urine will be sent out for culture. May need to change the antibiotic based on the cultureresults. Cranberry juice ok. Avoid bath tubs and hot tubs, wipe front to back, avoid fragrance soaps in that area, urinate before and after intercourse if sexually active. Discussed if patient develops any N/V, fever/chills, or symptoms dramatically increase, the patient is to go to the ER. Otherwise follow up at our office if no improvement in one week. - URINALYSIS ANALYZER TEST - URINARY TRACT INFECTION (HTRX) - nitrofurantoin, macrocrystal-monohydrate, (Macrobid) 100 MG capsule; Take 1 capsule (100 mg) by mouth in the morning and 1 capsule (100 mg) before bedtime. Do all this for 7 days. Dispense: 14 capsule; Refill: 0 2. Bladder spasms Dx and tx discussed. Will treat as UTI based on symptoms. She would like to start ATB and is aware we will call with results of urine culture. Denies further questions or concerns. documented in this encounterCross[facility] [id number] Evaluation note* Author Shawna [facility] Authored March 21, 2024 4:47pm Before the [...] ultrasound and follow-up with urology. Author Shawna [facility] Authored March 16, 2024 10:46am *Progress note was completed with the assistance of voice recognition software for dictation purposes. Please excuse any grammatical errors that were not corrected during review process. [facility] Work Phone: [phone]) 267-824709-18-2024 Evaluation note* Author Shawna [facility] Authored March 21, 2024 3:47pm Before the locking of this p marah note, patient calls back to states she [...] ultrasound and follow-up with urology. Author Shawna Healy [facility] Authored March 16, 2024 9:46am *Progress note was completed with the assistance of voice recognition software for dictation purposes. Please excuse any grammatical errors that were not corrected during review process. [facility] Work Phone: [phone]) 270-514509-18-2024 NoteED Patient Education Note Gastroenterology Nausea, Adult [...] ? Low-calorie sports drinks. ? Eat bland, oorl-pm-kwbylm foods in small amounts as you are able, such as: ? Bananas. ? Applesauce. ? Rice. ? Low-fat (lean) meats. ? [place]. ? Crackers. ? Avoid drinking fluids that have a lot of sugar or caffeine in them. This includes energy drinks, sports drinks, and soda. ? Avoid alcohol. ? Avoid spicy or fatty foods. General instructions ? Take fcne-pqx-qrnucfj and prescription medicines only as told by [...] cannot use soap and water, use hand solar sales specialist. ? Make sure that everyone in your [...] drink what your doctor tells you. Take btwf-ajl-ngptgwo and prescription medicines only as told by [...] provider. Document Revised: 12/25/2021 Document Reviewed: 12/25/2021 [employer] Patient Education ? 2023 [employer]. Orthopedics Pain Without a Known Cause Pain [...] these instructions at home: Medicines ? Take ejvd-vhh-mxnkgra and prescription medicines only as (more content not included)...[facility]09-13-2024 Evaluation note* Author Shawna Healy [facility] Authored March 16, 2024 10:46am *Progress note was completed with the assistance of voice recognition software for dictation purposes. Please excuse any grammatical errors that were not corrected during review process. [facility] Work Phone: [phone] 630-139906-26-2024 Hospital Discharge instructions Patient Education 12/28/2023 15:06:07 Nausea, Adult, Ennl-tv-Jcsh Nausea, Adult Nausea is feeling like you [...] fruit juice). ?Low-calorie sports drinks. Eat bland, mfuc-vv-wxbags foods in small amounts as you are able, such as: ?Bananas. ?Applesauce. ?Rice. ?Low-fat (lean) meats. ?[place]. ?Crackers. Avoid drinking fluids that have a lot of sugar or caffeine in them. This includes energy drinks, sports drinks, and soda. Avoid alcohol. Avoid spicy or fatty foods. General instructions Take palv-chg-tegawpq and prescription medicines only as told by [...] cannot use soap and water, use hand solar sales specialist. Make sure that everyone in your home [...] drink what your doctor tells you. Take nnaa-uju-amueufi and prescription medicines only as told by your doctor. Contact a doctor right away if your symptoms get worse or you have new symptoms. Keep all follow-up visits. This information is not intended to replace advice given to you by your health care provider. Make sure you discuss any questions you have with your health care provider. Document Revised: 12/25/2021 Document Reviewed: 12/25/2021 [employer] Patient Education 2022 [employer]. 12/28/2023 15:06:07 Abdominal Pain, Adult Abdominal Pain, [...] Follow these instructions at home: Medicines Take srkv-nlk-ftvykfp and prescription medicines only as told by [...] Watch your condition for any changes. Take ygzq-omd-ephxfyb and prescription medicines only as told by [...] provider. Document Revised: 08/08/2020 Document Reviewed: 10/29/2019 Elsevier Patient Education 2023 [employer]. Follow Up Care 12/28/2023 10:37:02 With:Juliana Barton Address: [address], [address] [place] [phone] Business (1) When:12/31/2023 14:48:18 Comments:Call for diagnosis based follow up With:SHAWNA HEALY Address: [address] [place] [phone] Business (1) When:12/31/2023 14:47:44 Comments:Call Dr for diagnosis based follow up [facility]06-26-2024 Evaluation + Plan noteExtracted from: Title:ED Note Author:Jose Rai PA-C te:12/28/23 Diarrhea (R19.7: Diarrhea, u nspecified) Nausea (R11.0: Nausea) Pain in the abdomen (R10.9: Unspecified abdominal pain) Orders: dicyclomine, 10 mg = 1 cap(s), Oral, QID, X 7 day(s), # 28 cap(s), Refills(s) 0, [id number], 160, cm, 12/28/23 10:54:00 EDT, Height/Length Dosing, 81.7, kg, 12/28/23 10:54:00 EDT, Weight Dosing ketorolac, 30 mg = 1 mL, Injection, IV Push, Once, Stop date 12/28/23 12:53:00 EDT, STAT, Start date 12/28/23 12:53:00 EDT, 12/28/23 12:53:00 EDT ondansetron, 4 mg = 1 tab(s), Oral, q8hr, PRN Nausea/Vomiting, # 20 tab(s), Refills(s) 0, [facility]acy: [facility] #[id number], 160, cm, 12/28/23 10:54:00 EDT, Height/Length Dosing, [...] Daily, # 30 tab(s), Refills(s) 0, Pharmacy: [facility] #[id number], 160, cm, 12/28/23 10:54:00 EDT, Height/Length Dosing, 81.7, kg, 12/28/23 10:54:00 EDT, Weight Dosing Sodium Chloride 0.9% intravenous solution, 1,000 mL, Soln-IV, IV, Once, Stop date 12/28/23 12:53:00 EDT, STAT, Start date 12/28/23 12:53:00 EDT, Infuse over 61, minute(s) sucralfate, 1 gm = 1 tab(s), Oral, QID, X 7 day(s), # 28 tab(s), Refills(s) 0, Pharmacy: [facility] #[id number], 160, cm, 12/28/23 10:54:00 EDT, Height/Length Dosing, 81.7, kg, 12/28/23 10:54:00 EDT, Weight Dosing CT Abdomen/Pelvis w/ Contrast Future Appointments Appointment Date:01/10/2024 01:30:00 PM Scheduled Provider:Oralia BURKS, Juliana Pruett [place] [place] [facility] [place] Type[place]08-29-2023 Evaluation note* Encounter Date Diagnosis Assessment [...] patients require daily miralax, however not recommended termination clerk. 6. If no bowel movement in 5-7 [...] patients require daily miralax, however not recommended fpc. 6. If no bowel movement in 5-7 [...] that were not corrected during review process. Checkd.In Other 08-10-2023 Evaluation + Plan noteExtracted from: Title:ED Note Author:Shivam Alvarez DO Date: Acute right flank pain (R10. 9: Unspecified abdominal pain) Ordered: oxycodone, 5 mg = 1 cap(s), Oral, q6hr, PRN Pain 8-10, # 4 cap(s), Refills(s) 0, Pharmacy: [facility] #[id number], 160, cm, 02/10/23 1:25:00 EDT, Height/Length Dosing, 81.4, kg, 02/10/23 1:25:00 EDT, Weight Dosing Orders: ketorolac, 15 mg = 1 mL, Injection, IV Push, Once, Stop date 02/10/23 1:46:00 EDT, STAT, Start date 02/10/23 1:46:00 EDT, 02/10/23 1:46:00 EDT naproxen, 500 mg = 1 tab(s), Oral, BID, PRN for pain, # 20 tab(s), Refills(s) 0, Pharmacy: [facility] #[id number], 160, cm, 02/10/23 1:25:00 EDT, Height/Length Dosing, 81.4, kg, 02/10/23 1:25:00 EDT, Weight Dosing ondansetron, 4 mg = 1 tab(s), Oral, q8hr, PRN Nausea/Vomiting, # 12 tab(s), Refills(s) 0, Pharmacy: [facility] #[id number], 160, cm, 02/10/23 1:25:00 EDT, Height/Length Dosing, [...] Diagnostic Tests Pending * Urine Culture 02/10/23 [facility]08-10-2023 Hospital Discharge instructions Patient Education 02/10/2023 03:09:40 [...] told by your health care provider. Take ymld-usm-nfbylxh and prescription medicines only as told by [...] provider. Document Revised: 08/31/2021 Document Reviewed: 08/31/2021 [employer] Patient Education 2022 [employer]. Follow Up Care 02/10/2023 01:19:58 With:Lev LACKEY Address: [place] [phone] Business (1) When:02/13/2023 Comments:Strain urine. Take pain medication as prescribed. Follow-up with urology [facility]06-27-2022 Evaluation note* Encounter Date Diagnosis Assessment Notes [...] chronic med management and referra lto counseling. Checkd.In Other Evaluation + Plan note Future Appointments Appointment Date:01/10/2024 01:30:00 PM Scheduled Provider:Juliana Barton MD [place] [place] [facility] [place] New Patient [facility] Evaluation + Plan note Future Appointments Appointment Date:04/12/2024 08:45:00 AM Scheduled Provider:Juliana Barton MD [place] [place] [facility] [place] Type[place] Follow Up [facility] Evaluation + Plan note Future Appointments Appointment Date:04/12/2024 08:45:00 AM Scheduled Provider:Juliana Barton MD [place] [place] [facility] [place] Follow Up Diagnostic Tests Pending * PTH Intact 03/14/24 * Vitamin B1 03/14/24 * Urine Culture 03/14/24 [facility] Evaluation + Plan note Future Appointments Appointment Date:04/26/2024 08:15:00 AM Scheduled Provider:Luis Mckee MD [facility] Appointment Type:Cardiology New Patient ([facility]) Diagnostic Tests Pending * CARMEN w/Reflex if POS 04/21/24 * Rheumatoid Factor Quantitative 04/21/24 * Lyme Antibodies w/rflx to IgG/IgM 04/21/24 [facility] Evaluation + Plan noteExtracted from: Title:ED Note Author:Connor Zimmerman PA-C te:05/03/24 Abdominal pain (R10.9: Unspe cified abdominal pain) Constipation (K59.00: Constipation, unspecified) Nausea & vomiting (R11.2: Nausea with vomiting, unspecified) UTI (urinary tract infection) (N39.0: Urinary tract infection, site not specified) Orders: acetaminophen-hydrocodone, 1 tab(s), Oral, q6hr for pain for 3 day(s), 8 tab(s), Refill(s) 0, [facility] #[id number], 160, cm, 05/02/24 19:02:00 EDT, Height/Length Dosing, 82.5, kg, 05/02/24 19:02:00 EDT, Weight Dosing cephalexin, 500 mg = 1 cap(s), Cap, Oral, Once, Stop date 05/02/24 22:43:00 EDT, STAT, Start date 05/02/24 22:43:00 EDT, 05/02/24 22:43:00 EDT cephalexin, 500 mg = 1 cap(s), Oral, q12hr, X 7 day(s), # 14 cap(s), Refills(s) 0, Pharmacy: [facility] #[id number], 160, cm, 05/02/24 19:02:00 EDT, Height/Length Dosing, 82.5, kg, 05/02/24 19:02:00 EDT, Weight Dosing docusate, 100 mg = 1 cap(s), Oral, BID, # 20 cap(s), Refills(s) 0, Pharmacy: [facility] #[id number], 160, cm, 05/02/24 19:02:00 EDT, Height/Length Dosing, 82.5, kg, 05/02/24 19:02:00 EDT, Weight Dosing ketorolac, 30 mg = 1 mL, Injection, IV Push, Once, Stop date 05/02/24:27:00 EDT, STAT, Start date 05/02/24 19:27:00 EDT, 05/02/24:27:00 EDT magnesium citrate, 8.725 gm, 150 mL, Oral, Once, 300 mL, Refill(s) 0, Once daily until BM, [facility] #[id number], 160, cm, 05/02/24 19:02:00 EDT, Height/Length Dosing, 82.5, kg, 05/02/24 19:02:00 EDT, Weight Dosing morphine, 4 mg = 1 mL, Injection, IV Push, Once, Stop date 05/02/24 22:12:00 EDT, STAT, Start date 05/02/24 22:12:00 EDT, 05/02/24 22:12:00 EDT naproxen, 500 mg = 1 tab(s), Oral, BID, X 10 day(s), # 20 tab(s), Refills(s) 0, Pharmacy: [facility] #[id number], 160, cm, 05/02/24 19:02:00 EDT, Height/Length Dosing, 82.5, kg, 05/02/24 19:02:00 EDT, Weight Dosing ondansetron, 4 mg = 1 tab(s), Oral, q6hr, # 12 tab(s), Refills(s) 0, Pharmacy: [facility] #[id number], 160, cm, 05/02/24 19:02:00 EDT, Height/Length Dosing, 82.5, kg, 05/02/24 19:02:00 EDT, Weight Dosing ondansetron, 4 mg = 2 mL, Injection, IV Push, Once, Stop date 05/02/24 19:27:00 EDT, STAT, Start date 05/02/24 19:27:00 EDT, 05/02/24 19:27:00 EDT ondansetron, 4 mg = 2 mL, Injection, IV Push, Once, Stop date 05/02/24 22:12:00 EDT, STAT, Start date 05/02/24 22:12:00 EDT, 05/02/24 22:12:00 EDT polyethylene glycol 3350, 17 gm, Oral, Daily, # 10 EA, Refills(s) 0, Pharmacy: [facility] #[id number], 160, cm, 05/02/24 19:02:00 EDT, Height/Length Dosing, 82.5, kg, 05/02/24 19:02:00 EDT, Weight Dosing Basic Metabolic Panel CBC w/ Auto Diff CT Abdomen/Pelvis w/ Contrast eGFR Extra Blue Tube Extra SST Tube Hepatic Function Panel Lipase Level Diagnostic Tests Pending * Urine Culture 05/02/24 [facility] Evaluation noteNo InformationNort Mobi-[employer] Other Evaluation noteNo assessment information available [facility] Work Phone: Evaluation note* Diagnosis Onset Date Resolution Status Dysuria acute Low back pain acute [facility] Work Phone: Evaluation note* Diagnosis Dysuria- Primary Bladder spasms Hypertonicity of bladder [facility] Diagnosis Pelvic pain in female Unspecified symptom associated with female genital organs Breast pain Mastodynia Vaginal odor Unspecified symptom associated with female genital organs Acute bilateral low back pain with bilateral sciatica documented [facility] this encounter [facility] N[facility] - Reported* Type Description Date Surgical History Tonsillectomy and adenoidectomy 1998 Hospitalization History Childbirth (2) Checkd.In Other History general Narrative - Reported* Type Description Date Medical History Hemorrhoid Medical History Chronic idiopathic constipation Surgical History Tonsillectomy and adenoidectomy 1998 Hospitalization History Childbirth (2) Checkd.In Other Hospital course Narrative No data available for this section [facility] No data available for this section [facility] Progress note No data available for this section [facility] Summary Purpose Family History No Family History Records Found Relationship Condition Age at Onset Recorded Date/T niurka Not Specified Diabetes mellitus Unknown family member Family history of diabetes mellitus Unkn own Family history of ma lignant neoplasm of breast Unknown Relationship Condition Age at Onset Recorded Date/T niurka mother Diabetes mellitus Unknown family member Family history of diabetes mellitus Unkn own Family history of ma lignant neoplasm of breast Unknown Advance Directives No Advanced Directives Records Found Advance Directive Response Recorded Date/ Time Advance Directives No April 11, 2021 10:24pm Advance Directive Response Recorded Date/ Time Advance Directives No April 09, 2024 3:43pm Advance Directive Response Recorded Date/ Time Advance Directives No April 09, 2024 2:43pm Chief Complaint and Reason for Visit Chief [...] Proteinuria Vaginal itching Vitamin D deficiency Fatigue Chief Complaint dizziness, foot numb ness 2 week follow up R31.9 R80.9 Follow up - several concerns Amb Documentation Reason for Visit Abdominal pain Anxiety about health Chest pain Dysuria Fatigue Low back pain Neuropathic pain Abdominal pain Anxiety about health Hematuria Low back pain Neuropathic pain Proteinuria Vaginal itching Vitamin D deficiency Fatigue Chief Complaint dizziness, foot numb ness 2 week follow up R31.9 R80.9 Follow up - several concerns Amb Documentation Amb Documentation Reason for Visit Abdominal pain Anxiety about health Chest pain Dysuria Fatigue Low back pain Neuropathic pain Abdominal pain Anxiety about health Hematuria Low back pain Neuropathic pain Proteinuria Vaginal itching Vitamin D deficiency Fatigue Blurred vision, bilateral Dizziness Facial numbness Hematuria Intractable migraine Low back pain Painful paresthesia Proteinuria UTI (urinary tract infection) Additional Source Comments INFORMATION SOURCE (unrecogn ized section and content) DATE CREATED AUTHOR 09/20/2021 [facility] DATE CREATED AUTHOR AUTHOR'S ORGANIZ ATION 12/29/2023 [facility] DATE CREATED AUTHOR AUTHOR'S ORGANIZ ATION 01/01/2024 [facility] DATE CREATED AUTHOR AUTHOR'S ORGANIZ ATION 03/16/2024 [facility] DATE CREATED AUTHOR AUTHOR'S ORGANIZ ATION 03/17/2024 [facility] DATE CREATED AUTHOR AUTHOR'S ORGANIZ ATION 03/18/2024 [facility] DATE CREATED AUTHOR AUTHOR'S ORGANIZ ATION 03/22/2024 [facility] DATE CREATED AUTHOR AUTHOR'S ORGANIZ ATION 03/23/2024 [facility] DATE CREATED AUTHOR AUTHOR'S ORGANIZ ATION 04/06/2024 [facility] DATE CREATED AUTHOR AUTHOR'S ORGANIZ ATION 04/23/2024 [facility] DATE CREATED AUTHOR AUTHOR'S ORGANIZ ATION 04/25/2024 [facility] DATE CREATED AUTHOR AUTHOR'S ORGANIZ ATION 05/04/2024 [facility] DATE CREATED AUTHOR AUTHOR'S ORGANIZ ATION 05/10/2024 [facility] DATE CREATED AUTHOR AUTHOR'S ORGANIZ ATION 05/11/2024 [facility] DATE CREATED AUTHOR AUTHOR'S ORGANIZ ATION 05/11/2024 [facility] DATE CREATED AUTHOR AUTHOR'S ORGANIZ ATION 05/13/2024 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 [facility] [employer] provides no warranty or guarantee of the accuracy or completeness of information in this document.
== END 2024-05-17 09:18 | disposition home or self-care (01) ==
LOC: NOMS 09:17
PROVIDERS: Visit Provider Obstetrics & Gynecology
DX: R10.2 Pelvic and perineal pain (principal)
CPT/HCPCS: 76830; 76856

== ENCOUNTER 2024-05-22 21:26 | Outpatient (REF) | payer BC, SELFPAY ==
--- OUTSIDE RECORDS SUMMARY | 2024-05-22 21:33 | XMS_ITS | CCD ---
Author Organization [facility] Care Team Providers Care Fire Safety Inspector Name Role Phone DR BRAYAN ALLISON Admitting Unavailable KEEGAN, DR SANTANA Attending Unavailable DR BRAYAN ALLISON Consulting Unavailable Easterwood, Shawna Unavailable NONE, XXXX Primary Care Physician Unavailab SHAWNA Garcia Primary Care Physician Shivam Alvarez Attending Unavailable TAYA BALDERRAMA Attending Unavailable IRIS NUNEZ Attending UnavailMamta Bowden Attending Unavailable IRIS HAELY Attending Unavailable QUANGERAMELIA, IRIS MATOS Admitting Unavailable DO Jesica Mccabe Attending Unavailable YOVANI Healy Primary Care Provider YOVANI Healy Attending Provider Mamta Us Attending Unavailable Juliana Barton Attending Unavailable Juliana Barton Attending Unavailable QUANGERAMELIA, SHAWNA Admitting Unavailable QUANGERWOODSHAWNA Attending Unavailable DO Jesica Mccabe Attending Unavailable QUANGERWOOD, IRIS MATOS Referring Unavailable Lev LACKEY Attending Unavailable EASTERWOODIRIS Attending Unavailable EASTERWOOD, IRIS MATOS Admitting Unavailable EASTERWOOD, IRIS MATOS Attending Unavailable EASTERWOOD, BED WORKER SHAWNA Admitting Unavailable Shawna Healy MD Unavailable DO Jesica Mccabe Attending Unavailable DokkDO Fredis bainylshabnamn Hien Attending Unavailable YOVANI Healy Primary Care Provider YOVANI Healy Attending Provider NONE, XXXX Admitting Unavailable Darwin Irizarry Attending Unavailable TRACEY Rai Referring Unavailab TRACEY Vigil Attending Unavailab SIXTO Dodson Referring Unavailable SIXTO ORELLANA Attending Unavailable SIXTO ORELLANA Referring Unavailable DARA AVILES Attending Unavailable BRAYAN ALLISON Attending Unavailable EASTERAMELIA, SHAWNA Primary Care Unavailable Easterwood 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Shawna Cedeno Primary Care Provider EastShawna wallace APRN Attending Provider [phone] Kaz Miner MD Emergency Provider [phone] Luis M Wiley DO Emergency Provider Kaz Andino Admitting Unavailable Kaz Miner Attending Unavailable Easterwood, Shawna Rodriguez Primary Care Unavailable Easterwood, Shawna J Admitting Unavailable Easterwood, Shawna J Attending Unavailable Easterwood, Shawna J Admitting Unavailable Easterwood, Shawna Rodriguez Attending Unavailable Easterwood, Shawna J Primary Care Unavailable Luis M Wiley Admitting Unavailable Luis M Wiley Attending Unavailable Easterwood, Shawna J Primary Care Unavailable MD DAMION MEHTA Attending Unav Juliana Madison Attending Unavailable Allergies Allergy Classification Reported Allergen(s) Allergy Type Date of Onset Reaction(s) Facility (11 sources) Amoxicillin / Clavulanate; Translations: [Augmentin] Drug Allergy 07-04-19 11 hives, vomiting [facility] Repository (1 source) Sulfamethoxazole / Trimethoprim Drug Allergy 07-04-19 11 [facility] Repository (12 sources) Amoxicillin / Clavulanate; Translations: [amoxicillin-clavul anate] Drug Allergy hives, vomiting [facility] (20 sources) Sulfamethoxazole / Trimethoprim; Translations: [sulfamethoxazole-t rimethoprim] Drug Allergy 10-26-19 24 [facility] (16 sources) Amoxicillin; Translations: [amoxicillin] Drug Allergy 04-11-20 [facility] (16 sources) Clavulanate; Translations: [clavulanic acid] Drug Allergy 04-11-20 21 [facility] (16 sources) Sulfamethoxazole; Translations: [sulfamethoxazole] Drug Allergy 04-11-20 [facility] (9 sources) Sulfonamides (Antibiotic); Translations: [Sulfa (Sulfonamide Antibiotics)] Propensity to adverse reactions 11-29-19 [facility] (16 sources) Trimethoprim; Translations: [trimethoprim] Drug Allergy 04-11-20 [facility] (8 sources) Sulfamethoxazole / Trimethoprim; Translations: [Septra] Drug Allergy [facility] Repository (8 sources) Sulfamethoxazole / Trimethoprim; Translations: [Bactrim] Drug Allergy [facility] (7 sources) Amoxicillin-Pot Clavulanate Drug Allergy 10-26-19 [facility] (4 sources) Sulfonamides (Antibiotic) Drug Allergy 05-08-20 [facility] (5 sources) Sulfur; Translations: [SULFUR] Drug Allergy 05-04-20 [facility] (1 source) Sulfamethoxazole / Trimethoprim; Translations: [SULFAMETHOXAZOLE-T RIMETHOPRIM] Drug Allergy 05-04-20 [facility] Repository Medications Current Medications Medication Drug Class(es) Dates Sig (Normalized) Sig (Original) acetaminophen 300 mg / butalbital 50 mg / caffeine 40 mg oral capsule (2 sources) Barbiturate, Central Nervous System Stimulant, Methylxanthine Start: 05-08-2024 take 1 capsule by mouth three times daily as needed for pain Butalbital-Acetamin ophen-Caff (Fioricet) 50-300-40 mg capsule Active 1 CAP PO Three times daily as needed for pain 15 May 08, 2024 12:00am acetaminophen 325 mg / HYDROcodone bitartrate 5 mg oral tablet (1 source) Opioid Agonist Start: 05-02-2024 End: 05-05-2024 [place] 325 mg-5 mg oral tablet 1 tab(s), Oral, q6hr for pain for 3 day(s), 8 tab(s), Refill(s) 0, [facility] #[id number], 160, cm, 05/02/24 19:02:00 EDT, Height/Length Dosing, 82.5, kg, 05/02/24 19:02:00 EDT, Weight Dosing Start Date: 05/02/24 Stop Date: 05/05/24 Status: Ordered busPIRone hydrochloride 5 mg oral tablet (4 sources) Start: 04-05-2024 take 1 tablet by mouth three times daily busPIRone 5 mg Tab 5 mg = 1 tab(s), Oral, TID, # 90 tab(s), Refills(s) 0, Pharmacy: [facility] #[id number], 160, cm, 04/05/24 9:37:00 EDT, Height/Length Dosing, 83.7, kg, 04/05/24 9:37:00 EDT, Weight Dosing Start Date: 04/05/24 Status: Ordered cephalexin 500 mg oral capsule (1 source) Cephalosporin Antibacterial Start: 05-02-2024 End: 05-09-2024 take 1 capsule by mouth every twelve hours cephalexin 500 mg Cap 500 mg = 1 cap(s), Oral, q12hr, X 7 day(s), # 14 cap(s), Refills(s) 0, Pharmacy: [facility] #[id number], 160, cm, 05/02/24 19:02:00 EDT, Height/Length Dosing, 82.5, kg, 05/02/24 19:02:00 EDT, Weight Dosing Start Date: 05/02/24 Stop Date: 05/09/24 Status: Ordered cyclobenzaprine hydrochloride 10 mg oral tablet (4 sources) Muscle Relaxant Start: 05-09-2024 End: 05-19-2024 take 1 tablet by mouth three times daily as needed for muscle spasms cyclobenzaprine (Flexeril) 10 MG tablet Indications: Acute bilateral low back pain with bilateral sciatica Take 1 tablet (10 mg) by mouth 3 (three) times a day as needed for muscle spasms for up to 10 days 30 tablet 05/09/2024 Active dicyclomine hydrochloride 10 mg oral capsule (4 sources) Anticholinergic Start: 01-10-2024 dicyclomine 10 mg Cap Refills(s) 0 Start Date: 01/10/24 Status: Ordered Start: 12-28-2023 End: 01-04-2024 take 1 capsule by mouth four times daily Bentyl 10 mg Cap 10 mg = 1 cap(s), Oral, QID, X 7 day(s), # 28 cap(s), Refills(s) 0, Pharmacy: [facility] #[id number], 160, cm, 12/28/23 10:54:00 EDT, Height/Length Dosing, 81.7, kg, 12/28/23 10:54:00 EDT, Weight Dosing Start Date: 12/28/23 Stop Date: 01/04/24 Status: Ordered docusate sodium 100 mg oral capsule (2 sources) Start: 05-02-2024 take 1 capsule by mouth twice daily Colace 100 mg Cap 100 mg = 1 cap(s), Oral, BID, # 20 cap(s), Refills(s) 0, Pharmacy: [facility] #[id number], 160, cm, 05/02/24 19:02:00 EDT, Height/Length Dosing, 82.5, kg, 05/02/24 19:02:00 EDT, Weight Dosing Start Date: 05/02/24 Status: Ordered ergocalciferol 1.25 mg oral capsule (13 sources) Provitamin D2 Compound Start: 03-19-2024 take 1 capsule by mouth every week ergocalciferol (Vitamin D2) 1.25 MG (45751 UT) capsule TAKE 1 CAPSULE BY MOUTH [...] Status: Ordered ibuprofen 800 mg oral tablet (5 sources) Nonsteroidal Anti-inflammatory Drug Start: 05-09-2024 End: [...] 40 tablet 1 05/09/2024 06/08/2024 Active levonorgestrel 0.039505 mg/hr intrauterine system (19 sources) Progestin, Progestin-containing Intrauterine Device Start: 11-25-2023 Levonorgestrel 20 MCG/DAY intrauterine device As Directed 11/25/2023 Active Start: 11-25-2023 Levonorgestrel 21 mcg/24 hours (8 yrs) 52 mg intrauterine device Active 1 DEVICE INTRAUTERI As Directed November 24, 2023 11:00pm Start: 11-25-2023 Levonorgestrel Active 1 DEVICE INTRAUTERI As Directed November 24, 2023 11:00pm Mirena (52 MG) 2 0 MCG/DAY as directed Intrauterine Active linaclotide 0.145 mg oral capsule (2 sources) Guanylate Cyclase-C Agonist Start: 01-10-2024 take 1 capsule by mouth once daily Linzess 145 mcg oral capsule 145 mcg = 1 cap(s), Oral, Daily, # 30 cap(s), Refills(s) 5, Pharmacy: [facility] #[id number], 160, cm, 01/10/24 13:34:00 EDT, Height/Length Dosing, [...] day(s), # 20 tab(s), Refills(s) 0, Pharmacy: [facility] #[id number], 160, cm, 05/02/24 19:02:00 EDT, Height/Length Dosing, 82.5, kg, 05/02/24 19:02:00 EDT, Weight Dosing Start Date: 05/02/24 Stop Date: 05/12/24 Status: Ordered Start: 02-10-2023 take 1 tablet by pippa th twice daily as needed for pain naproxen 500 mg Tab 500 mg = 1 tab(s), Oral, BID, PRN for pain, # 20 tab(s), Refills(s) 0, Pharmacy: [facility] #[id number], 160, cm, 02/10/23 1:25:00 EDT, Height/Length Dosing, 81.4, kg, 02/10/23 1:25:00 EDT, Weight Dosing Start Date: 02/10/23 Status: Ordered omeprazole 40 mg delayed release oral capsule (1 source) Proton Pump Inhibitor Start: 05-18-2024 take 1 capsule by mouth once daily Omeprazole 40 mg capsule,delayed release(DR/EC) Active 40 MG PO Daily May 18, 2024 12:00am ondansetron 4 mg oral tablet (7 sources) Serotonin-3 Receptor Antagonist Start: 05-02-2024 take 1 tablet by mouth every six hours ondansetron 4 mg Dis Tab 4 mg = 1 tab(s), Oral, q6hr, # 12 tab(s), Refills(s) 0, Pharmacy: [facility] #[id number], 160, cm, 05/02/24 19:02:00 EDT, Height/Length Dosing, 82.5, kg, 05/02/24 19:02:00 EDT, Weight Dosing Start Date: 05/02/24 Status: Ordered Start: 12-28-2023 take 1 tablet by pippa every eight hours as needed for nausea and vomiting Ondansetron Hcl 4 mg tablet Active 4 MG PO Every 8 hours as needed for nausea and vomiting 15 11May 18, 2024 12:00am oxyCODONE hydrochloride 5 mg oral capsule (3 sources) Opioid Agonist Start: 02-10-2023 oxyCODONE 5 mg Cap 5 mg = 1 cap(s), Oral, q6hr, PRN Pain 8-10, # 4 cap(s), Refills(s) 0, Pharmacy: [facility] #[id number], 160, cm, 02/10/23 1:25:00 EDT, Height/Length Dosing, 81.4, kg, 02/10/23 1:25:00 EDT, Weight Dosing Start Date: 02/10/23 Status: Ordered pantoprazole 40 mg delayed release oral tablet (4 sources) Proton Pump Inhibitor Start: 12-28-2023 take 1 tablet by mouth once daily Protonix 40 mg Tab-DR 40 mg = 1 tab(s), Oral, Daily, # 30 tab(s), Refills(s) 0, [id number], 160, cm, 12/28/23 10:54:00 EDT, Height/Length Dosing, 81.7, kg, 12/28/23 10:54:00 EDT, Weight Dosing Start Date: 12/28/23 Status: Ordered polyethylene glycol 3350 86831 mg powder for oral solution (2 sources) Osmotic Laxative Start: 05-02-2024 take 17 g by mouth once daily Miralax 3350 17 gram packet 17 gm, Oral, Daily, # 10 EA, Refills(s) 0, Pharmacy: [facility] #[id number], 160, cm, 05/02/24 19:02:00 EDT, Height/Length Dosing, [...] nausea/vomiting, # 10 tab(s), Refills(s) 0, Pharmacy: [facility] #[id number], 160, cm, 05/05/24 21:07:00 EDT, Height/Length Dosing, [...] Status: Ordered sucralfate 1000 mg oral tablet (5 sources) Aluminum Complex Start: 05-18-2024 take 1 tablet by mouth twice daily as needed Sucralfate (Carafate) 1 gram tablet Active 1 GM PO Twice daily as needed for abdominal discomfort 60 May 18, 2024 12:03pm Start: 01-10-2024 take 1 tablet by pippa th four times daily sucralfate 1 g Tab take 1 tablet by mouth four times a day for 7 days Start Date: 01/10/24 Status: Ordered Start: 12-28-2023 End: 01-04-2024 take 1 tablet by mouth four times daily Carafate 1 gram Tab 1 gm = 1 tab(s), Oral, QID, X 7 day(s), # 28 tab(s), Refills(s) 0, [id number], 160, cm, 12/28/23 10:54:00 EDT, Height/Length Dosing, 81.7, kg, 12/28/23 10:54:00 EDT, Weight Dosing Start Date: 12/28/23 Stop Date: 01/04/24 Status: Ordered tamsulosin hydrochloride 0.4 mg oral capsule (1 source) alpha-Adrenergic Ana Start: 05-16-2024 take 1 capsule by mouth once daily Tamsulosin (Flomax) 0.4 mg capsule Active 0.4 MG PO Daily 14 May 16, 2024 12:00am tenapanor 50 mg oral tablet (5 sources) Start: 04-05-2024 take 1 tablet by mouth twice daily Ibsrela 50 mg oral tablet 50 mg = 1 tab(s), Oral, BID, # 30 tab(s), Refills(s) 4, Pharmacy: [facility] #[id number], 160, cm, 04/05/24 9:37:00 EDT, Height/Length Dosing, 83.7, kg, 04/05/24 9:37:00 EDT, Weight Dosing Start Date: 04/05/24 Status: Ordered Zofran ODT 4 mg Tab-Dis (9 sources) Start: 12-28-2023 take 1 tablet by mouth every eight hours as needed for nausea Zofran ODT 4 mg Tab-Dis 4 mg = 1 tab(s), Oral, q8hr, PRN Nausea/Vomiting , # 20 tab(s), Refills(s) 0, [id number], 160, cm, 12/28/23 10:54:00 EDT, Height/Length Dosing, 81.7, kg, 12/28/23 10:54:00 EDT, Weight Dosing Start Date: 12/28/23 Status: Ordered Start: 02-10-2023 take 1 tablet by pippa th every eight hours as needed for nausea Zofran ODT 4 mg Tab-Dis 4 mg = 1 tab(s), Oral, q8hr, PRN Nausea/Vomiting, # 12 tab(s), Refills(s) 0, Pharmacy: [facility] #[id number], 160, cm, 02/10/23 1:25:00 EDT, Height/Length Dosing, 81.4, kg, 02/10/23 1:25:00 EDT, Weight Dosing Start Date: 02/10/23 Status: Ordered Completed/Discontinued Medications Medication Drug Class(es) Dates Sig (Normalized) Sig (Original) ALPRAZolam 0.5 mg oral tablet (8 sources) Benzodiazepine Start: 11-29-2023 End: 03-13-2024 take 1 tablet by mouth three times daily as needed Alprazolam (Xanax) 0.5 mg tablet Discontinued 0.5 MG PO Three times daily as needed November 28, 2023 11:00pm March 13, 2024 2:51pm From [facility] 11/24 Ertapenem 1 gram recon soln (1 source) Start: 05-08-2024 End: 05-18-2024 take 1 g intravenously once daily Ertapenem 1 gram recon soln Discontinued 1 GM IV .daily x5 days May 08, 2024 12:00am May 18, 2024 11:22am fluconazole 150 mg oral tablet (6 sources) Azole Antifungal Start: 03-19-2024 End: 04-17-2024 Fluconazole 150 mg tablet Discontinued 150 MG PO Q3D 3 March 18, 2024 11:00pm April 17, 2024 2:40pm nitrofurantoin, macrocrystals 25 mg / nitrofurantoin, monohydrate 75 mg oral capsule (3 sources) Nitrofuran Antibacterial Start: 05-10-2024 End: 05-18-2024 take 1 capsule by mouth every twelve hours at mealtime Nitrofurantoin Monohyd/M-Cryst (Macrobid) 100 mg capsule Discontinued 100 MG PO Q12H 14 May 10, 2024 12:00am May 18, 2024 11:14am Administer with a meal/food: swallow whole; do not open, crush, dissolve, or chew Start: 05-01-2024 End: 05-08-2024 take 1 capsule by mouth in the morning nitrofurantoin, macrocrystal-monohydrate , (Macrobid) 100 MG capsule Indications: Dysuria Take 1 capsule (100 mg) by mouth in the morning and 1 capsule (100 mg) before bedtime. Do all this for 7 days. 14 capsule 05/01/2024 05/08/2024 Active sodium fluoride 0.011 mg/mg toothpaste (8 sources) Start: 11-29-2023 End: 03-13-2024 Fluoride (Sodium) (Sf 5000 P darryl) 1.1 % cream Discontinued 1 APPLIC DENTAL Daily November 28, 2023 11:00pm March 13, 2024 2:51pm Problems Active Problems Problem Classification Problem Date Documented Da te Episodic/Chronic Abdominal pain (20 sources) Abdominal pain; Translations: [Unspecified abdominal pain] Onset: 02-10-2023 Episodic Blindness and vision defects (4 sources) Blurring of visual image; Translations: [Other visual disturbances] 05-08-2024 Episodic Conditions associated with dizziness or vertigo (9 sources) Dizziness; Translations: [Dizziness and giddiness] 03-13-2024 Episodic Genitourinary symptoms and ill-defined conditions (20 sources) Dysuria; Translations: [Dysuria] Onset: 03-26-2024 03-13-2024 Episodic Headache; including migraine (6 sources) Migraine; Translations: [Migraine, unspecified, not intractable, without status migrainosus] 05-08-2024 Chronic Headache; including migraine (1 source) Headache; Translations: [Headache, unspecified] Onset: 05-06-2024 Episodic Hemorrhoids (13 sources) Hemorrhoids; Translations: [Unspecified hemorrhoids] Episodic Immunizations and screening for infectious disease (1 source) Encounter for screening for human papillomavirus (HPV); Translations: [ENC SCREENING HUMAN PAPILLOMAVIRUS] Onset: 09-15-2021 Episodic Malaise and fatigue (17 sources) Fatigue; Translations: [Other fatigue] 03-13-2024 Episodic Miscellaneous mental health disorders (18 sources) Anxiety about body function or health; Translations: [Other symptoms and signs involving emotional state] 11-29-2023 Episodic Nausea and vomiting (11 sources) Nausea; Translations: [Nausea] Onset: 12-28-2023 Episodic Nonmalignant breast conditions (2 sources) Pain of breast; Translations: [Mastodynia] 05-09-2024 Episodic Nonspecific chest pain (12 sources) Chest pain; Translations: [Chest pain, unspecified] 03-16-2024 Episodic Nutritional deficiencies (10 sources) Vitamin D deficiency; Translations: [Vitamin D deficiency, unspecified] 03-21-2024 Chronic Other aftercare (1 source) Encounter for follow-up examination after completed treatment for conditions other than malignant neoplasm Episodic Other connective tissue disease (6 sources) Neuropathic pain; Translations: [Neuralgia and neuritis, unspecified] 03-16-2024 Episodic Other connective tissue disease (11 sources) Neuralgia and neuritis, unspecified; Translations: [Neuralgia, neuritis, and radiculitis, unspecified] 03-13-2024 Episodic Other diseases of bladder and urethra (2 sources) Spasm of bladder; Translations: [Other specified disorders of bladder] 05-01-2024 Chronic Other female genital disorders (5 sources) Pruritus of vagina; Translations: [Other specified noninflammatory disorders of vagina] 03-21-2024 Episodic Other female genital disorders (5 sources) Other specified noninflammatory disorders of vagina; Translations: [Pruritus of genital organs] 03-19-2024 Episodic Other female genital disorders (2 sources) Vaginal odor; Translations: [Other specified noninflammatory disorders of vagina] 05-09-2024 Episodic Other gastrointestinal disorders (14 sources) Chronic idiopathic constipation; Translations: [Chronic idiopathic [...] Onset: 05-02-2024 Episodic Other nervous system disorders (2 sources) Paresthesia; Translations: [Paresthesia of skin] 05-08-2024 Episodic Other nervous system disorders (2 sources) Numbness of face; Translations: [Anesthesia of skin] 05-08-2024 Episodic Other nervous system disorders (2 sources) Anesthesia of skin; Translations: [Disturbance of skin sensation] 05-08-2024 Episodic Other nervous system disorders (2 sources) Paresthesia of skin; Translations: [Disturbance of skin sensation] 05-08-2024 Episodic Other screening for suspected conditions (not mental disorders or infectious disease) (14 sources) Encounter for screening for malignant neoplasm of cervix; Translations: [No current problems or disability] Onset: 09-14-2021 Episodic Spondylosis; intervertebral disc disorders; other back problems (20 sources) Low back pain; Translations: [Low back pain] 03-13-2024 Episodic Urinary tract infections (6 sources) Urinary tract infectious disease; Translations: [Urinary tract infection, site not specified] Onset: 05-02-2024 Episodic Past or Other Problems Problem Classification Problem Date Documented Da te Episodic/Chronic Unclassified (8 sources) Ankle fracture 06-15-2023 Comment on above: Problem List clean-u p per request of Phys. EHR Cmte Results Test Name Value Interpretation Reference Range Facility Alanine aminotransferase [En zymatic activity/volume] in Serum or PlasmaOrdered By: Luis M Wiley on 05-18-2024 ALT [Catalytic activity/Vol] Alanine aminotransferase [Enzymatic activity/volume] in Serum or Plasma [facility] Albumin [Mass/volume] in Ser um or Plasma by Bromocresol green (BCG) dye binding methoOrdered By: Luis M Wiley on 05-18-2024 Albumin BCG dye [Mass/Vol] Albumin [Mass/volume] in Serum or Plasma by Bromocresol green (BCG) dye binding metho 3.5-5.7 [facility] Alkaline phosphatase [Enzyma tic activity/volume] in Serum or PlasmaOrdered By: Luis M Wiley on 05-18-2024 ALP [Catalytic activity/Vol] Alkaline phosphatase [Enzymatic activity/volume] in Serum or Plasma 34-104 [facility] Appearance of UrineOrdered B y: Luis M Wiley on 05-18-2024 Appearance (U) Urine appearance Clear [facility] Aspartate aminotransferase [ Enzymatic activity/volume] in Serum or PlasmaOrdered By: Luis M Wiley on 05-18-2024 AST [Catalytic activity/Vol] Aspartate aminotransferase [Enzymatic activity/volume] in Serum or Plasma 13-39 [facility] Basic Metabolic Panelon 05-04 Anion gap [Moles/Vol] 12.9 mmol/L Normal 6.0-15.0 [facility] Comment on above: Performed By: #### F E PRO, CMP wRFX A1C #### [facility] [address] [place] [address] [place] Calcium [Mass/Vol] 9.6 mg/dL Normal 8.6-10.3 [facility] Comment on above: Performed By: #### F E PRO, CMP wRFX A1C #### [facility] [address] [place] [address] [place] Chloride [Moles/Vol] 105 mmol/L Normal 98-107 [facility] Comment on above: Performed By: #### F E PRO, CMP wRFX A1C #### [facility] [address] [place] [address] [place] CO2 [Moles/Vol] 24.0 mmol/L Normal 21.0-31.0 [facility] Comment on above: Performed By: #### F E PRO, CMP wRFX A1C #### [facility] [address] [place] [address] [place] Creatinine [Mass/Vol] 0.63 mg/dL Normal 0.60-1.20 [facility] Comment on above: Performed By: #### F E PRO, CMP wRFX A1C #### [facility] [address] [place] [address] [place] Creatinine Clr Calc Pharmacy 129.94 Normal [facility] Comment on above: Performed By: #### F E PRO, CMP wRFX A1C #### [facility] [address] [place] [address] [place] GFR/1.73 sq M.predicted MDRD (S/P/Bld) [Vol rate/Area] mL/min/{1.73_m2} Normal [facility] Comment on above: Performed By: #### F E PRO, CMP wRFX A1C #### [facility] [address] [place] [address] [place] Glucose [Mass/Vol] 92 mg/dL Normal 70-100 [facility] Comment on above: Result Comment: [facility] Glucose Reference Range is dependent on time and content of last meal. Glucose of more than 200 mg/dL in a nonstressed, ambulatory subject supports the diagnosis of Diabetes Mellitus. ADA recommended reference range Performed By: #### F E PRO, CMP wRFX A1C #### [facility] [address] [place] [address] [place] Potassium [Moles/Vol] 3.9 mmol/L Normal 3.5-5.1 [facility] Comment on above: Performed By: #### F E PRO, CMP wRFX A1C #### [facility] [address] [place] [address] [place] Sodium [Moles/Vol] 138 mmol/L Normal 136-145 [facility] Comment on above: Performed By: #### F E PRO, CMP wRFX A1C #### [facility] [address] [place] [address] [place] Urea nitrogen [Mass/Vol] 6 mg/dL Low 7-25 [facility] Comment on above: Performed By: #### F E PRO, CMP wRFX A1C #### [facility] [address] [place] [id number] [place] Basophils Auto (Bld) [#/Vol] Ordered By: Luis M Wiley on 05-18-2024 Basophils (Bld) [#/Vol] Automated basoph il count 0.0-0.2 [facility] Basophils/100 WBC Auto (Bld) Ordered By: Luis M Wiley on 05-18-2024 Basophils/100 WBC (Bld) Automated basophil % . [facility] Bilirubin Test strip Ql (U)O rdered By: Luis M Wiley on 05-18-2024 Bilirubin Ql (U) Bilirubin.total [Presence] in Urine by Test strip Negative [facility] Bilirubin.direct [Mass/volum e] in Serum or PlasmaOrdered By: Luis M Wiley on 05-18-2024 Bilirubin.direct [Mass/Vol] Bilirubin.direct [Mass/volume] in Serum or Plasma 0.03-0.18 [facility] Bilirubin.total [Mass/volume ] in Serum or PlasmaOrdered By: Luis M Wiley on 05-18-2024 Bilirubin [Mass/Vol] Bilirubin.total [Mass/volume] in Serum or Plasma 0.3-1.0 [facility] Calcium [Mass/volume] in Ser um or PlasmaOrdered By: Luis M Wiley on 05-18-2024 Calcium [Mass/Vol] Calcium [Mass/volume] in Serum or Plasma 8.6-10.3 [facility] Carbon dioxide, total [Moles /volume] in Serum or PlasmaOrdered By: Luis M Wiley on 05-18-2024 CO2 [Moles/Vol] Carbon dioxide, total [Moles/volume] in Serum or Plasma 21.0-31.0 [facility] Chloride [Moles/volume] in S narendra or PlasmaOrdered By: Luis M Wiley on 05-18-2024 Chloride [Moles/Vol] Chloride [Moles/volume] in Serum or Plasma 98-107 [facility] Color Auto (U)Ordered By: Ann Wiley on 05-18-2024 Color (U) Color of Urine by Auto Yellow [facility] Complete Blood Count Auto Di ffon 05-18-2024 Basophils (Bld) [#/Vol] 0.0 10*3/uL Normal 0.0-0.2 [facility] Comment on above: Result Comment: PERF ORMED BY: [address] [place] [address] PATHOLOGIST [employer] DAISY FUENTES M.D. Performed By: #### F E PRO, CMP wRFX A1C #### [address] Basophils/100 WBC (Bld) 0.4 % Normal . T ginette [facility] Comment on above: Performed By: #### F E PRO, CMP wRFX A1C #### [address] Eosinophils (Bld) [#/Vol] 0.1 10*3/uL Normal 0.0-0.45 [facility] Comment on above: Performed By: #### F E PRO, CMP wRFX A1C #### [place] [address] [place] Eosinophils/100 WBC (Bld) 0.9 % Normal . [facility] Comment on above: Performed By: #### F E PRO, CMP wRFX A1C #### [address] Erythrocyte distribution width (RBC) [Ratio] 12.7 % Normal 11.9-15.3 [facility] Comment on above: Performed By: #### F E PRO, CMP wRFX A1C #### [address] Hematocrit (Bld) [Volume fraction] 43.4 % Normal 34.0-46.4 [facility] Comment on above: Performed By: #### F E PRO, CMP wRFX A1C #### [address] Hemoglobin (Bld) [Mass/Vol] 15.1 g/dL Normal 11.8-15.4 [facility] Comment on above: Performed By: #### F E PRO, CMP wRFX A1C #### [place] [address] [place] Lymphocytes (Bld) [#/Vol] 1.9 10*3/uL Normal 1.00-4.8 [facility] Comment on above: Performed By: #### F E PRO, CMP wRFX A1C #### [place] [address] [place] Lymphocytes/100 WBC (Bld) 20.2 % Normal . [facility] Comment on above: Performed By: #### F E PRO, CMP wRFX A1C #### [address] MCH (RBC) [Entitic mass] 30.1 pg Normal 24.7-34.3 [facility] Comment on above: Performed By: #### F E PRO, CMP wRFX A1C #### [address] MCV (RBC) [Entitic vol] 86.6 fL Normal 80-100 [facility] Comment on above: Performed By: #### F E PRO, CMP wRFX A1C #### [address] Mean Corpuscular HGB Conc 34.8 g/dL Normal 32.0-35.0 [facility] Comment on above: Performed By: #### F E PRO, CMP wRFX A1C #### [address] Monocytes (Bld) [#/Vol] 0.6 10*3/uL Normal 0.0-0.8 [facility] Comment on above: Performed By: #### F E PRO, CMP wRFX A1C #### [address] Monocytes/100 WBC (Bld) 18.60 % Normal 0.00-20.00 [facility] Comment on above: Performed By: #### F E PRO, CMP wRFX A1C #### [address] Monocytes/100 WBC (Bld) 6.0 % Normal . [facility] Comment on above: Performed By: #### F E PRO, CMP wRFX A1C #### [address] Neutrophils (Bld) [#/Vol] 6.7 10*3/uL Normal 1.8-7.7 [facility] Comment on above: Performed By: #### F E PRO, CMP wRFX A1C #### [address] Neutrophils/100 WBC (Bld) 72.5 % Normal . [facility] Comment on above: Performed By: #### F E PRO, CMP wRFX A1C #### [address] NRBC% 0.0 /100{WBC} Normal 0-0.5 [facility] Comment on above: Performed By: #### F E PRO, CMP wRFX A1C #### [address] Platelet mean volume (Bld) [Entitic vol] 8.8 fL Normal 6.3-10.7 [facility] Comment on above: Performed By: #### F E PRO, CMP wRFX A1C #### [address] Platelets (Bld) [#/Vol] 227 10*3/uL Normal 150-450 [facility] Comment on above: Performed By: #### F E PRO, CMP wRFX A1C #### [address] RBC (Bld) [#/Vol] 5.01 10*6/uL High 3.60-5.00 [facility] Comment on above: Performed By: #### F E PRO, CMP wRFX A1C #### [place] [address] [place] WBC (Bld) [#/Vol] 9.3 10*3/uL Normal 3.8-11.6 [facility] Comment on above: Performed By: #### F E PRO, CMP wRFX A1C #### [place] [address] [place] Creatinine [Mass/volume] in Serum or PlasmaOrdered By: Luis M Wiley on 05-18-2024 Creatinine [Mass/Vol] Creatinine [Mass/volume] in Serum or Plasma 0.60-1.20 [facility] Eosinophils Auto (Bld) [#/Vo l]Ordered By: Luis M Wiley on 11-15-2024 Eosinophils (Bld) [#/Vol] Automated eosinophil count 0.0-0.45 [facility] Eosinophils/100 WBC Auto (Bl d)Ordered By: Luis M Wiley on 05-18-2024 Eosinophils/100 WBC (Bld) Automated eosinophil % . [facility] Erythrocyte distribution wid th Auto (RBC) [Ratio]Ordered By: Luis M Wiley on 05-18-2024 Erythrocyte distribution width (RBC) [Ratio] Erythrocyte distribution width [Ratio] by Automated count 11.9-15.3 [facility] Globulin Calc (S) [Mass/Vol] Ordered By: Luis M Wiley on 05-18-2024 Globulin (S) [Mass/Vol] Serum globulin measurement by calculation (mass/volume) [facility] Glucose [Mass/volume] in Ser um or PlasmaOrdered By: Luis M Wiley on 05-18-2024 Glucose [Mass/Vol] Glucose [Mass/volume] in Serum or Plasma 70-100 [facility] Comment on above: ADA recommended refe rence rangeRandom Glucose Reference Range is dependent on time and content of last meal. Glucose of more than 200 mg/dL in a nonstressed, ambulatory subject supports the diagnosis of Diabetes Mellitus. Glucose [Mass/volume] in Uri ne by Test stripOrdered By: Luis M Wliey on 05-18-2024 Glucose Test strip (U) [Mass/Vol] Glucose [Mass/volume] in Urine by Test strip Normal [facility] HCG ( test) IA.rapi d Ql (U)Ordered By: Luis M Wiley on 05-18-2024 HCG ( test) Ql (U) Urine human chorionic gonadotropin (hCG) detection by immunoassay [facility] HCG,Urineon 05-18-2024 Beta HCG ( test) Ql (U) Negative Normal [facility] Comment on above: Order Comment: Name Collection Type:: Clean-Voided Midstream Result Comment: PERF ORMED BY: [address] [address] PATHOLOGIST [employer] DAISY FUENTES M.D. Performed By: #### F E PRO, CMP wRFX A1C #### [address] [address] [place] Hematocrit Auto (Bld) [Volum e fraction]Ordered By: Luis M Wiley on 05-18-2024 Hematocrit (Bld) [Volume fraction] Hematocrit [Volume Fraction] of Blood by Automated count 34.0-46.4 [facility] Hemoglobin Test strip Ql (U) Ordered By: Luis M Wiley on 05-18-2024 Hemoglobin Ql (U) Hemoglobin [Presence] in Urine by Test strip Negative [facility] Hemoglobin [Mass/volume] in BloodOrdered By: Luis M Wiley on 05-18-2024 Hemoglobin (Bld) [Mass/Vol] Hemoglobin [Mass/volume] in Blood 11.8-15.4 [facility] Hepatic Panelon 05-18-2024 Albumin [Mass/Vol] 4.8 g/dL Normal 3.5-5.7 [facility] Comment on above: Performed By: #### F E PRO, CMP wRFX A1C #### [address] Albumin/Globulin [Mass ratio] 2.0 {ratio} Normal [facility] Comment on above: Performed By: #### F E PRO, CMP wRFX A1C #### [place] [address] [place] ALP [Catalytic activity/Vol] 85 U/L Normal 34-104 [facility] Comment on above: Performed By: #### F E PRO, CMP wRFX A1C #### [place] [address] [place] ALT [Catalytic activity/Vol] 13 U/L Normal 7-52 [facility] Comment on above: Performed By: #### F E PRO, CMP wRFX A1C #### [place] [id number] [place] AST [Catalytic activity/Vol] 15 U/L Normal 13-39 [facility] Comment on above: Performed By: #### F E PRO, CMP wRFX A1C #### [place] [address] [place] Bilirubin [Mass/Vol] 0.9 mg/dL Normal 0.3-1.0 [facility] Comment on above: Performed By: #### F E PRO, CMP wRFX A1C #### [facility] [address] Bilirubin,Indirect 0.8 mg/dL Normal [facility] Comment on above: Performed By: #### F E PRO, CMP wRFX A1C #### [facility] [address] Bilirubin.indirect [Mass/Vol] 0.10 mg/dL Normal 0.03-0.18 [facility] Comment on above: Performed By: #### F E PRO, CMP wRFX A1C #### [facility] [address] Globulin (S) [Mass/Vol] 2.4 g/dL Normal T [facility] Comment on above: Performed By: #### F E PRO, CMP wRFX A1C #### [facility] [address] Protein [Mass/Vol] 7.2 g/dL Normal 6.4-8.9 [facility] Comment on above: Performed By: #### F E PRO, CMP wRFX A1C #### [facility] [address] Ketones Test strip Ql (U)Ord ered By: Luis M Wiley on 05-18-2024 Ketones Ql (U) Ketones [Presence] in Urine by Test strip Negative [facility] Leukocyte esterase [Presence ] in Urine by Test stripOrdered By: Luis M Wiley on 05-18-2024 Leukocyte esterase Test strip Ql (U) Leukocyte esterase [Presence] in Urine by Test strip Negative [facility] Leukocytes [#/volume] correc gemini for nucleated erythrocytes in Blood by Automated counOrdered By: Luis M Wiley on 05-18-2024 WBC corrected for nucl RBC Auto (Bld) [#/Vol] Leukocytes [#/volume] corrected for nucleated erythrocytes in Blood by Automated coun 3.8-11.6 [facility] Lipaseon 05-18-2024 Lipase [Catalytic activity/Vol] 33.0 U/L Normal 11.0-82.0 [facility] Comment on above: Result Comment: PERF ORMED BY: [place] [address] PATHOLOGIST [employer] DAISY FUENTES M.D. Performed By: #### F E PRO, CMP wRFX A1C #### [facility] [address] Lipase [Enzymatic activity/v olume] in Serum or PlasmaOrdered By: Lius M Wiley on 05-18-2024 Lipase [Catalytic activity/Vol] Lipase [Enzymatic activity/volume] in Serum or Plasma 11.0-82.0 [facility] Lymphocytes Auto (Bld) [#/Vo l]Ordered By: Luis M Wiley on 05-18-2024 Lymphocytes (Bld) [#/Vol] Lymphocytes [#/volume] in Blood by Automated count 1.00-4.8 [facility] Lymphocytes/100 WBC Auto (Bl d)Ordered By: Luis M Wiley on 05-18-2024 Lymphocytes/100 WBC (Bld) Lymphocytes/100 leukocytes in Blood by Automated count . [facility] MCH Auto (RBC) [Entitic mass ]Ordered By: Luis M Wiley on 05-18-2024 MCH (RBC) [Entitic mass] MCH [Entitic ma ss] by Automated count 24.7-34.3 [facility] MCHC Auto (RBC) [Mass/Vol]Or dered By: Luis M Wiley on 05-18-2024 MCHC (RBC) [Mass/Vol] MCHC [Mass/volume] by Automated count 32.0-35.0 [facility] MCV Auto (RBC) [Entitic vol] Ordered By: Luis M Wiley on 05-18-2024 MCV (RBC) [Entitic vol] MCV [Entitic vol ume] by Automated count 80-100 [facility] Monocyte distribution width [Entitic volume] in Blood by AutomatedOrdered By: Luis M Wiley on 05-18-2024 Monocyte distribution width Auto (Bld) [Entitic vol] Monocyte distribution width [Entitic volume] in Blood by Automated 0.00-20.00 [facility] Monocytes Auto (Bld) [#/Vol] Ordered By: Luis M Wiley on 05-18-2024 Monocytes (Bld) [#/Vol] Automated blood monocyte count 0.0-0.8 [facility] Monocytes/100 WBC Auto (Bld) Ordered By: Luis M Wiley on 05-18-2024 Monocytes/100 WBC (Bld) Automated monocyte % . [facility] Neutrophils Auto (Bld) [#/Vo l]Ordered By: Luis M Wiley on 05-18-2024 Neutrophils (Bld) [#/Vol] Neutrophils [#/volume] in Blood by Automated count 1.8-7.7 [facility] Neutrophils/100 WBC Auto (Bl d)Ordered By: Luis M Wiley on 05-18-2024 Neutrophils/100 WBC (Bld) Automated neutrophil % . [facility] Nitrite Test strip Ql (U)Ord ered By: Luis M Wiley on 05-18-2024 Nitrite Ql (U) Nitrite [Presence] in Urine by Test strip Negative [facility] No Panel InformationOrdered By: Luis M Wiley on 05-18-2024 Estimated GFR (CKD-EPI) > 60.0 mL/Min [facility] Creatinine Clearance (Chem 129.94 [facility] Nucleated erythrocytes [Pres ence] in Blood by Automated countOrdered By: Luis M Wiley on 05-18-2024 Nucleated RBC Auto Ql (Bld) Nucleated erythrocytes [Presence] in Blood by Automated count 0-0.5 [facility] Platelet mean volume Auto (B ld) [Entitic vol]Ordered By: Luis M Wiley on 05-18-2024 Platelet mean volume (Bld) [Entitic vol] Platelet mean volume [Entitic volume] in Blood by Automated count 6.3-10.7 [facility] Platelets Auto (Bld) [#/Vol] Ordered By: Luis M Wiley on 05-18-2024 Platelets (Bld) [#/Vol] Platelets [#/vol ume] in Blood by Automated count 150-450 [facility] Potassium [Moles/volume] in Serum or PlasmaOrdered By: Luis M Wiley on 05-18-2024 Potassium [Moles/Vol] Potassium [Moles/volume] in Serum or Plasma 3.5-5.1 [facility] Protein Test strip (U) [Mass /Vol]Ordered By: Luis M Wiley on 05-18-2024 Protein (U) [Mass/Vol] Protein [Mass/volume] in Urine by Test strip Negative [facility] Protein [Mass/volume] in Ser um or PlasmaOrdered By: Luis M Wiley on 05-18-2024 Protein [Mass/Vol] Protein [Mass/volume] in Serum or Plasma 6.4-8.9 [facility] RBC Auto (Bld) [#/Vol]Ordere d By: Luis M Wiley on 05-18-2024 RBC (Bld) [#/Vol] Erythrocytes [#/volume] in Blood by Automated count High 3.60-5.00 [facility] Serum or plasma albumin/glob ulin mass ratioOrdered By: Luis M Wiley on 05-18-2024 Albumin/Globulin [Mass ratio] Serum or plasma albumin/globulin mass ratio [facility] Serum or plasma anion gap de terminationOrdered By: Luis M Wiley on 05-18-2024 Anion gap [Moles/Vol] Serum or plasma anion gap determination 6.0-15.0 [facility] Serum or plasma non-glucuron idated bilirubin measurement (mass/volume)Ordered By: Luis M Wiley on 05-18-2024 Bilirubin.indirect [Mass/Vol] Serum or plasma non-glucuronidated bilirubin measurement (mass/volume) [facility] Sodium [Moles/volume] in Ser um or PlasmaOrdered By: Luis M Wiley on 05-18-2024 Sodium [Moles/Vol] Sodium [Moles/volume] in Serum or Plasma 136-145 [facility] Specific gravity Test strip (U) [Rel density]Ordered By: Luis M Wiley on 05-18-2024 Specific gravity (U) [Rel density] Specific gravity of Urine by Test strip 1.001-1.030 [facility] Urea nitrogen [Mass/volume] in Serum or PlasmaOrdered By: Luis M Wiley 05-18-2024 Urea nitrogen [Mass/Vol] Urea nitrogen [Mass/volume] in Serum or Plasma Low 7-25 [facility] Urinalysison 05-18-2024 Appearance (U) Clear Normal Clear [facility] Comment on above: Order Comment: Name Collection Type:: Clean-Voided Midstream Performed By: #### F E PRO, CMP wRFX A1C #### [facility] [address] [place] [address] [place] Bilirubin,Urine Negative Normal Negative [facility] Comment on above: Order Comment: Name Collection Type:: Clean-Voided Midstream Performed By: #### F E PRO, CMP wRFX A1C #### [facility] [address] [place] [address] [place] Color (U) Colorless Normal Yellow [facility] Comment on above: Order Comment: Name Collection Type:: Clean-Voided Midstream Performed By: #### F E PRO, CMP wRFX A1C #### [facility] [address] [place] [address] [place] Glucose Ql (U) Normal Normal Normal [facility] Comment on above: Order Comment: Name Collection Type:: Clean-Voided Midstream Performed By: #### F E PRO, CMP wRFX A1C #### [facility] [address] [place] [address] [place] Ketones Ql (U) Negative Normal Negative [facility] Comment on above: Order Comment: Name Collection Type:: Clean-Voided Midstream Performed By: #### F E PRO, CMP wRFX A1C #### [facility] [address] [place] [address] [place] Leukocyte esterase Test strip Ql (U) Negative Normal Negative [facility] Comment on above: Order Comment: Name Collection Type:: Clean-Voided Midstream Performed By: #### F E PRO, CMP wRFX A1C #### [facility] [address] [place] [address] [place] Nitrite,Urine Negative Normal Negative [facility] Comment on above: Order Comment: Name Collection Type:: Clean-Voided Midstream Performed By: #### F E PRO, CMP wRFX A1C #### [facility] [address] [place] [address] [place] Occult Blood,Urine Negative Normal Negative [facility] Comment on above: Order Comment: Name Collection Type:: Clean-Voided Midstream Performed By: #### F E PRO, CMP wRFX A1C #### [address] pH (U) 7.0 [pH] Normal 5.0-9.0 [facility] Comment on above: Order Comment: Name Collection Type:: Clean-Voided Midstream Performed By: #### F E PRO, CMP wRFX A1C #### [address] Protein,Urine Negative Normal Negative [facility] Comment on above: Order Comment: Name Collection Type:: Clean-Voided Midstream Performed By: #### F E PRO, CMP wRFX A1C #### [address] Specificy [place],Urine 1.002 Normal 1.001-1.030 [facility] Comment on above: Order Comment: Name Collection Type:: Clean-Voided Midstream Performed By: #### F E PRO, CMP wRFX A1C #### [address] Urobilinogen,Urine Normal Normal Normal [facility] Comment on above: Order Comment: Name Collection Type:: Clean-Voided Midstream Performed By: #### F E PRO, CMP wRFX A1C #### [address] Urobilinogen Test strip (U) [Mass/Vol]Ordered By: Luis M Wiley on 05-18-2024 Urobilinogen (U) [Mass/Vol] Urobilinogen [Mass/volume] in Urine by Test strip Normal [facility] WBC Auto (Bld) [#/Vol]Ordere d By: Luis M Wiley on 05-18-2024 WBC (Bld) [#/Vol] Leukocytes [#/volume] in Blood by Automated count 3.8-11.6 [facility] pH Test strip (U)Ordered By: Luis M Wiley on 05-18-2024 pH (U) pH of Urine by Test strip 5.0-9.0 [facility] RECURRENT VAGINITIS (HTRX)on 05-11-2024 ATOPOBIUM VAGINAE 0 [facility] ATOPOBIUM VAGINAE Not detected [facility] BVAB 2,3 (BACTERIAL VAGINOSIS ASSOCIATED BACTERIA 2, 3); MOBILUNCUS SPP 0 [facility] BVAB 2,3 (BACTERIAL VAGINOSIS ASSOCIATED BACTERIA [...] Not detected [facility] Alanine aminotransferase [En zymatic activity/volume] in Serum or PlasmaOrdered By: Kaz Miner on 05-10-2024 ALT [Catalytic activity/Vol] Alanine aminotransferase [Enzymatic activity/volume] in Serum or Plasma 7-52 [facility] Albumin [Mass/volume] in Ser um or Plasma by Bromocresol green (BCG) dye binding methoOrdered By: Kaz Miner on 05-10-2024 Albumin BCG dye [Mass/Vol] Albumin [Mass/volume] in Serum or Plasma by Bromocresol green (BCG) dye binding metho 3.5-5.7 [facility] Alkaline phosphatase [Enzyma tic activity/volume] in Serum or PlasmaOrdered By: Kaz Miner on 05-10-2024 ALP [Catalytic activity/Vol] Alkaline phosphatase [Enzymatic activity/volume] in Serum or Plasma 34-104 [facility] Appearance of UrineOrdered B y: Kaz Miner on 05-10-2024 Appearance (U) Urine appearance Clear [facility] Aspartate aminotransferase [ Enzymatic activity/volume] in Serum or PlasmaOrdered By: Kaz Miner on 05-10-2024 AST [Catalytic activity/Vol] Aspartate aminotransferase [Enzymatic activity/volume] in Serum or Plasma 13-39 [facility] Bacteria [Presence] in Urine by AutomatedOrdered By: Kaz Miner on 05-10-2024 Bacteria Auto Ql (U) Bacteria [Presence] in Urine by Automated None Seen [facility] Basophils Auto (Bld) [#/Vol] Ordered By: Kaz Miner on 05-10-2024 Basophils (Bld) [#/Vol] Automated basoph il count 0.0-0.2 [facility] Basophils/100 WBC Auto (Bld) Ordered By: Kaz Miner on 05-10-2024 Basophils/100 WBC (Bld) Automated basophil % . [facility] Bilirubin Test strip Ql (U)O rdered By: Kaz Miner on 05-10-2024 Bilirubin Ql (U) Bilirubin.total [Presence] in Urine by Test strip Negative [facility] Bilirubin.total [Mass/volume ] in Serum or PlasmaOrdered By: Kaz Miner on 05-10-2024 Bilirubin [Mass/Vol] Bilirubin.total [Mass/volume] in Serum or Plasma 0.3-1.0 [facility] Blood Cultureon 05-10-2024 Bacteria identified Cx Nom (Bld) NO GROWTH 5 DAYS PERFORMED BY: [place] [address] PATHOLOGIST [employer] LEONARDO LARA M.D. Normal [facility] Comment on above: Performed By: #### C UBLD, CBC, CMP #### [facility] [address] [place] [address] Bacteria identified Cx Nom (Bld) NO GROWTH 5 DAYS PERFORMED BY: [place] [address] PATHOLOGIST [employer] LEONARDO LARA M.D. Normal [facility] Comment on above: Performed By: #### C UBLD, CBC, CMP #### [facility] [address] [place] [address] CT abdomen pelvis wo conon 1 07-10-2023 CT abdomen pelvis wo con [facility] [place] [address] [place] Scan Report Signed Patient: Jack Rea MR#: [id number] 53 : 1995 Acct:[id number] Age/Sex: 29 / F ADM Date: 05/10/24 Loc: ER Room: Type: [facility] ER Attending Dr: Copies to: Kaz Miner [...] Darek Phipps M.D.05/10/2024 7:54 PM Dictation Location: [place] [address] Transcribed By: LISA 05/10/241953 Dictated By: Darek Phipps II, MD 05/10/241947 Signed By: 05/10/241953 Normal [facility] Calcium [Mass/volume] in Ser um or PlasmaOrdered By: Kaz Miner on 05-10-2024 Calcium [Mass/Vol] Calcium [Mass/volume] in Serum or Plasma 8.6-10.3 [facility] Carbon dioxide, total [Moles /volume] in Serum or PlasmaOrdered By: Kza Miner on 05-10-2024 CO2 [Moles/Vol] Carbon dioxide, total [Moles/volume] in Serum or Plasma 21.0-31.0 [facility] Chloride [Moles/volume] in S narendra or PlasmaOrdered By: Kaz Miner on 05-10-2024 Chloride [Moles/Vol] Chloride [Moles/volume] in Serum or Plasma 98-107 [facility] Color Auto (U)Ordered By: Therese Miner on 05-10-2024 Color (U) Color of Urine by Auto Yellow [facility] Complete Blood Count Auto Di ffon 05-10-2024 Basophils (Bld) [#/Vol] 0.1 10*3/uL Normal 0.0-0.2 [facility] Comment on above: Result Comment: PERF ORMED BY: [place] [address] PATHOLOGIST [employer] LEONARDO LARA M.D. Performed By: #### C UBLD, CBC, CMP #### [facility] [address] [place] [address] [place] Basophils/100 WBC (Bld) 0.5 % Normal . [facility] Comment on above: Performed By: #### C UBLD, CBC, CMP #### [facility] [address] [place] [address] [place] Eosinophils (Bld) [#/Vol] 0.1 10*3/uL Normal 0.0-0.45 [facility] Comment on above: Performed By: #### C UBLD, CBC, CMP #### [address] Eosinophils/100 WBC (Bld) 0.8 % Normal . [facility] Comment on above: Performed By: #### C UBLD, CBC, CMP #### [address] Erythrocyte distribution width (RBC) [Ratio] 12.8 % Normal 11.9-15.3 [facility] [facility] Comment on above: Performed By: #### C UBLD, CBC, CMP #### [address] Hematocrit (Bld) [Volume fraction] 43.3 % Normal 34.0-46.4 [facility] Comment on above: Performed By: #### C UBLD, CBC, CMP #### [address] Hemoglobin (Bld) [Mass/Vol] 14.8 g/dL Normal 11.8-15.4 [facility] Comment on above: Performed By: #### C UBLD, CBC, CMP #### [address] Lymphocytes (Bld) [#/Vol] 2.7 10*3/uL Normal 1.00-4.8 [facility] Comment on above: Performed By: #### C UBLD, CBC, CMP #### [place] [address] [place] Lymphocytes/100 WBC (Bld) 22.6 % Normal . [facility] Comment on above: Performed By: #### C UBLD, CBC, CMP #### [address] MCH (RBC) [Entitic mass] 29.6 pg Normal 24.7-34.3 [facility] Comment on above: Performed By: #### C UBLD, CBC, CMP #### [address] MCV (RBC) [Entitic vol] 86.6 fL Normal 80-100 T he [facility] Comment on above: Performed By: #### C UBLD, CBC, CMP #### [address] Mean Corpuscular HGB Conc 34.2 g/dL Normal 32.0-35.0 [facility] Comment on above: Performed By: #### C UBLD, CBC, CMP #### [address] Monocytes (Bld) [#/Vol] 0.5 10*3/uL Normal 0.0-0.8 [facility] Comment on above: Performed By: #### C UBLD, CBC, CMP #### [address] Monocytes/100 WBC (Bld) 17.60 % Normal 0.00-20.00 [facility] Comment on above: Performed By: #### C UBLD, CBC, CMP #### [address] Monocytes/100 WBC (Bld) 4.5 % Normal . T ginette [facility] Comment on above: Performed By: #### C UBLD, CBC, CMP #### [address] Neutrophils (Bld) [#/Vol] 8.7 10*3/uL High 1.8-7.7 [facility] Comment on above: Performed By: #### C UBLD, CBC, CMP #### [place] [address] [place] Neutrophils/100 WBC (Bld) 71.6 % Normal . [facility] Comment on above: Performed By: #### C UBLD, CBC, CMP #### [address] NRBC% 0.0 /100{WBC} Normal 0-0.5 [facility] Comment on above: Performed By: #### C UBLD, CBC, CMP #### [address] Platelet mean volume (Bld) [Entitic vol] 8.6 fL Normal 6.3-10.7 [facility] Comment on above: Performed By: #### C UBLD, CBC, CMP #### [address] Platelets (Bld) [#/Vol] 243 10*3/uL Normal 150-450 [facility] Comment on above: Performed By: #### C UBLD, CBC, CMP #### [address] RBC (Bld) [#/Vol] 5.00 10*6/uL Normal 3.60-5.00 [facility] Comment on above: Performed By: #### C UBLD, CBC, CMP #### [address] WBC (Bld) [#/Vol] 12.1 10*3/uL High 3.8-11.6 [facility] Comment on above: Performed By: #### C UBLD, CBC, CMP #### [address] Comprehensive Metabolic Pane gloria 05-10-2024 Albumin [Mass/Vol] 4.7 g/dL Normal 3.5-5.7 [facility] Comment on above: Performed By: #### C UBLD, CBC, CMP #### [address] Albumin/Globulin [Mass ratio] 1.9 {ratio} Normal [facility] Comment on above: Performed By: #### C UBLD, CBC, CMP #### [address] ALP [Catalytic activity/Vol] 74 U/L Normal 34-104 [facility] Comment on above: Performed By: #### C UBLD, CBC, CMP #### [address] ALT [Catalytic activity/Vol] 15 U/L Normal 7-52 [facility] Comment on above: Performed By: #### C UBLD, CBC, CMP #### [address] [place] [address] [place] Anion gap [Moles/Vol] 11.3 mmol/L Normal 6.0-15.0 Th e [facility] Comment on above: Performed By: #### C UBLD, CBC, CMP #### [facility] [address] AST [Catalytic activity/Vol] 15 U/L Normal 13-39 [facility] Comment on above: Performed By: #### C UBLD, CBC, CMP #### [address] Bilirubin [Mass/Vol] 0.7 mg/dL Normal 0.3-1.0 [facility] Comment on above: Performed By: #### C UBLD, CBC, CMP #### [address] Calcium [Mass/Vol] 9.6 mg/dL Normal 8.6-10.3 [facility] Comment on above: Performed By: #### C UBLD, CBC, CMP #### [address] Chloride [Moles/Vol] 105 mmol/L Normal 98-107 [facility] Comment on above: Performed By: #### C UBLD, CBC, CMP #### [address] CO2 [Moles/Vol] 24.7 mmol/L Normal 21.0-31.0 [facility] Comment on above: Performed By: #### C UBLD, CBC, CMP #### [place] [address] [place] Creatinine [Mass/Vol] 0.70 mg/dL Normal 0.60-1.20 [facility] Comment on above: Performed By: #### C UBLD, CBC, CMP #### [address] Creatinine Clr Calc Pharmacy 118.06 Normal [facility] Comment on above: Result Comment: PERF ORMED BY: [place] [address] PATHOLOGIST [employer] LEONARDO LARA M.D. Performed By: #### C UBLD, CBC, CMP #### [place] [address] [place] GFR/1.73 sq M.predicted MDRD (S/P/Bld) [Vol rate/Area] mL/min/{1.73_m2} Normal [facility] Comment on above: Performed By: #### C UBLD, CBC, CMP #### [address] Globulin (S) [Mass/Vol] 2.5 g/dL Normal T he [facility] Comment on above: Performed By: #### C UBLD, CBC, CMP #### [address] Glucose [Mass/Vol] 87 mg/dL Normal 70-100 [facility] Comment on above: Result Comment: [facility] Glucose Reference Range is dependent on time and content of last meal. Glucose of more than 200 mg/dL in a nonstressed, ambulatory subject supports the diagnosis of Diabetes Mellitus. ADA recommended reference range Performed By: #### C UBLD, CBC, CMP #### [address] Potassium [Moles/Vol] 4.0 mmol/L Normal 3.5-5.1 [facility] Comment on above: Performed By: #### C UBLD, CBC, CMP #### [place] [address] [place] Protein [Mass/Vol] 7.2 g/dL Normal 6.4-8.9 [facility] Comment on above: Performed By: #### C UBLD, CBC, CMP #### [place] [address] [place] Sodium [Moles/Vol] 137 mmol/L Normal 136-145 [facility] Comment on above: Performed By: #### C UBLD, CBC, CMP #### [address] Urea nitrogen [Mass/Vol] 7 mg/dL Normal 7-25 [facility] Comment on above: Performed By: #### C UBLD, CBC, CMP #### [facility] [address] Creatinine [Mass/volume] in Serum or PlasmaOrdered By: Kaz Miner on 05-10-2024 Creatinine [Mass/Vol] Creatinine [Mass/volume] in Serum or Plasma 0.60-1.20 [facility] Dipstick and Microscopicon 1 07-10-2023 Appearance (U) Clear Normal Clear [facility] Comment on above: Order Comment: Name Collection Type:: Clean-Voided Midstream Performed By: #### U HCG, ADDONUAPLUS #### [address] Bacteria,Urine None Seen Normal None Seen [facility] Comment on above: Order Comment: Name Collection Type:: Clean-Voided Midstream Performed By: #### U HCG, ADDONUAPLUS #### [address] Bilirubin,Urine Negative Normal Negative [facility] Comment on above: Order Comment: Name Collection Type:: Clean-Voided Midstream Performed By: #### U HCG, ADDONUAPLUS #### [address] Color (U) Light-Yellow Normal Yellow [facility] Comment on above: Order Comment: Name Collection Type:: Clean-Voided Midstream Performed By: #### U HCG, ADDONUAPLUS #### [facility] [address] [place] [address] Glucose Ql (U) Normal Normal Normal [facility] Comment on above: Order Comment: Name Collection Type:: Clean-Voided Midstream Performed By: #### U HCG, ADDONUAPLUS #### [place] [address] [place] Hyaline Casts,Urine None Normal 0-8 [facility] Comment on above: Order Comment: Name Collection Type:: Clean-Voided Midstream Performed By: #### U HCG, ADDONUAPLUS #### [address] Ketones Ql (U) Trace High Negative [facility] Comment on above: Order Comment: Name Collection Type:: Clean-Voided Midstream Performed By: #### U HCG, ADDONUAPLUS #### [facility] [address] [place] [address] Leukocyte esterase Test strip Ql (U) Negative Normal Negative [facility] Comment on above: Order Comment: Name Collection Type:: Clean-Voided Midstream Performed By: #### U HCG, ADDONUAPLUS #### [facility] [address] [place] [address] Mucus,Urine Rare Normal [facility] Comment on above: Order Comment: Name Collection Type:: Clean-Voided Midstream Performed By: #### U HCG, ADDONUAPLUS #### [address] Nitrite,Urine Negative Normal Negative [facility] Comment on above: Order Comment: Name Collection Type:: Clean-Voided Midstream Performed By: #### U HCG, ADDONUAPLUS #### [address] Occult Blood,Urine 1+ High Negative [facility] Comment on above: Order Comment: Name Collection Type:: Clean-Voided Midstream Performed By: #### U HCG, ADDONUAPLUS #### [facility] [address] [place] [address] [place] pH (U) 5.5 [pH] Normal 5.0-9.0 [facility] Comment on above: Order Comment: Name Collection Type:: Clean-Voided Midstream Performed By: #### U HCG, ADDONUAPLUS #### [facility] [address] [place] [address] [place] Protein,Urine Negative Normal Negative [facility] Comment on above: Order Comment: Name Collection Type:: Clean-Voided Midstream Performed By: #### U HCG, ADDONUAPLUS #### [facility] [address] [place] [address] [place] RBC,Urine 5 [HPF] High 0-4 [facility] Comment on above: Order Comment: Name Collection Type:: Clean-Voided Midstream Performed By: #### U HCG, ADDONUAPLUS #### [facility] [address] [place] [address] Specificy [place],Urine 1.013 Normal 1.001-1.030 [facility] Comment on above: Order Comment: Name Collection Type:: Clean-Voided Midstream Performed By: #### U HCG, ADDONUAPLUS #### [facility] [address] [place] [address] Squamous Epithelial Cell,Urine 3 [HPF] High 0-2 [facility] Comment on above: Order Comment: Name Collection Type:: Clean-Voided Midstream Performed By: #### U HCG, ADDONUAPLUS #### [address] Urobilinogen,Urine Normal Normal Normal [facility] Comment on above: Order Comment: Name Collection Type:: Clean-Voided Midstream Performed By: #### U HCG, ADDONUAPLUS #### [address] WBC,Urine 1 [HPF] Normal 0-4 [facility] Comment on above: Order Comment: Name Collection Type:: Clean-Voided Midstream Performed By: #### U HCG, ADDONUAPLUS #### [address] Eosinophils Auto (Bld) [#/Vo l]Ordered By: Kaz Miner on 05-10-2024 Eosinophils (Bld) [#/Vol] Automated eosinophil count 0.0-0.45 [facility] Eosinophils/100 WBC Auto (Bl d)Ordered By: Kaz Miner on 05-10-2024 Eosinophils/100 WBC (Bld) Automated eosinophil % . [facility] Epithelial cells.squamous [# /area] in Urine sediment by Automated countOrdered By: Kaz Miner on 05-10-2024 Epithelial cells.squamous Auto (Urine sed) [#/Area] Epithelial cells.squamous [#/area] in Urine sediment by Automated count High 0-2 [facility] Erythrocyte distribution wid th Auto (RBC) [Ratio]Ordered By: Kaz Miner on 05-10-2024 Erythrocyte distribution width (RBC) [Ratio] Erythrocyte distribution width [Ratio] by Automated count 11.9-15.3 [facility] Erythrocytes [#/area] in Uri ne sediment by Automated countOrdered By: Kaz Miner on 05-10-2024 RBC Auto (Urine sed) [#/Area] Erythrocytes [#/area] in Urine sediment by Automated count High 0-4 [facility] Globulin Calc (S) [Mass/Vol] Ordered By: Kaz Miner on 05-10-2024 Globulin (S) [Mass/Vol] Serum globulin measurement by calculation (mass/volume) [facility] Glucose [Mass/volume] in Ser um or PlasmaOrdered By: Kaz Miner on 05-10-2024 Glucose [Mass/Vol] Glucose [Mass/volume] in Serum or Plasma 70-100 [facility] Comment on above: ADA recommended refe rence rangeRandom Glucose Reference Range is dependent on time and content of last meal. Glucose of more than 200 mg/dL in a nonstressed, ambulatory subject supports the diagnosis of Diabetes Mellitus. Glucose [Mass/volume] in Uri ne by Test stripOrdered By: Kaz Miner on 05-10-2024 Glucose Test strip (U) [Mass/Vol] Glucose [Mass/volume] in Urine by Test strip Normal [facility] HCG ( test) IA.rapi d Ql (U)Ordered By: Kaz Miner on 05-10-2024 HCG ( test) Ql (U) Urine human chorionic gonadotropin (hCG) detection by immunoassay [facility] HCG,Urineon 05-10-2024 Beta HCG ( test) Ql (U) Negative Normal [facility] Comment on above: Order Comment: Name Collection Type:: Clean-Voided Midstream Result Comment: PERF ORMED BY: [place] [address] PATHOLOGIST [employer] LEONARDO LARA M.D. Performed By: #### U HCG, ADDONUAPLUS #### [address] Hematocrit Auto (Bld) [Volum e fraction]Ordered By: Kaz Miner on 05-10-2024 Hematocrit (Bld) [Volume fraction] Hematocrit [Volume Fraction] of Blood by Automated count 34.0-46.4 [facility] Hemoglobin Test strip Ql (U) Ordered By: Kaz Miner on 05-10-2024 Hemoglobin Ql (U) Hemoglobin [Presence] in Urine by Test strip High Negative [facility] Hemoglobin [Mass/volume] in BloodOrdered By: Kaz Miner on 05-10-2024 Hemoglobin (Bld) [Mass/Vol] Hemoglobin [Mass/volume] in Blood 11.8-15.4 [facility] Hyaline casts [#/area] in Ur ine sediment by Automated countOrdered By: Kaz Miner on 05-10-2024 Hyaline casts Auto (Urine sed) [#/Area] Hyaline casts [#/area] in Urine sediment by Automated count 0-8 [facility] Ketones Test strip Ql (U)Ord ered By: Kaz Miner on 05-10-2024 Ketones Ql (U) Ketones [Presence] in Urine by Test strip High Negative [facility] Laboratory - Microbiology an d Antimicrobial susceptibilityOrdered By: Kaz Miner on 05-10-2024 Bacteria identified Cx Nom (Bld) NO GROWTH 5 DAYS [facility] Bacteria identified Cx Nom (Bld) NO GROWTH 5 DAYS [facility] Leukocyte esterase [Presence ] in Urine by Test stripOrdered By: Kaz Miner on 05-10-2024 Leukocyte esterase Test strip Ql (U) Leukocyte esterase [Presence] in Urine by Test strip Negative [facility] Leukocytes [#/area] in Urine sediment by Automated countOrdered By: Kaz Miner on 05-10-2024 WBC Auto (Urine sed) [#/Area] Leukocytes [#/area] in Urine sediment by Automated count 0-4 [facility] Leukocytes [#/volume] correc gemini for nucleated erythrocytes in Blood by Automated counOrdered By: Kaz Miner on 05-10-2024 WBC corrected for nucl RBC Auto (Bld) [#/Vol] Leukocytes [#/volume] corrected for nucleated erythrocytes in Blood by Automated coun High 3.8-11.6 [facility] Lymphocytes Auto (Bld) [#/Vo l]Ordered By: Kaz Miner on 05-10-2024 Lymphocytes (Bld) [#/Vol] Lymphocytes [#/volume] in Blood by Automated count 1.00-4.8 [facility] Lymphocytes/100 WBC Auto (Bl d)Ordered By: Kaz Miner on 05-10-2024 Lymphocytes/100 WBC (Bld) Lymphocytes/100 leukocytes in Blood by Automated count . [facility] MCH Auto (RBC) [Entitic mass ]Ordered By: Kaz Miner on 05-10-2024 MCH (RBC) [Entitic mass] MCH [Entitic ma ss] by Automated count 24.7-34.3 [facility] MCHC Auto (RBC) [Mass/Vol]Or dered By: Kaz Miner on 05-10-2024 MCHC (RBC) [Mass/Vol] MCHC [Mass/volume] by Automated count 32.0-35.0 [facility] MCV Auto (RBC) [Entitic vol] Ordered By: Kaz Miner on 05-10-2024 MCV (RBC) [Entitic vol] MCV [Entitic vol ume] by Automated count 80-100 [facility] Monocyte distribution width [Entitic volume] in Blood by AutomatedOrdered By: Kaz Miner on 05-10-2024 Monocyte distribution width Auto (Bld) [Entitic vol] Monocyte distribution width [Entitic volume] in Blood by Automated 0.00-20.00 [facility] Monocytes Auto (Bld) [#/Vol] Ordered By: Kaz Miner on 05-10-2024 Monocytes (Bld) [#/Vol] Automated blood monocyte count 0.0-0.8 [facility] Monocytes/100 WBC Auto (Bld) Ordered By: Kaz Miner on 05-10-2024 Monocytes/100 WBC (Bld) Automated monocyte % . [facility] Mucus [Presence] in Urine by AutomatedOrdered By: Kaz Miner on 05-10-2024 Mucus Auto Ql (U) Mucus [Presence] in Urine by Automated [facility] Neutrophils Auto (Bld) [#/Vo l]Ordered By: Kaz Miner on 05-10-2024 Neutrophils (Bld) [#/Vol] Neutrophils [#/volume] in Blood by Automated count High 1.8-7.7 [facility] Neutrophils/100 WBC Auto (Bl d)Ordered By: Kaz Miner on 05-10-2024 Neutrophils/100 WBC (Bld) Automated neutrophil % . [facility] Nitrite Test strip Ql (U)Ord ered By: Kaz Miner on 05-10-2024 Nitrite Ql (U) Nitrite [Presence] in Urine by Test strip Negative [facility] No Panel InformationOrdered By: Kaz Miner on 05-10-2024 Estimated GFR (CKD-EPI) > 60.0 mL/Min [facility] Creatinine Clearance (Chem 118.06 [facility] Nucleated erythrocytes [Pres ence] in Blood by Automated countOrdered By: Kaz Miner on 05-10-2024 Nucleated RBC Auto Ql (Bld) Nucleated erythrocytes [Presence] in Blood by Automated count 0-0.5 [facility] Platelet mean volume Auto (B ld) [Entitic vol]Ordered By: Kaz Miner on 05-10-2024 Platelet mean volume (Bld) [Entitic vol] Platelet mean volume [Entitic volume] in Blood by Automated count 6.3-10.7 [facility] Platelets Auto (Bld) [#/Vol] Ordered By: Kaz Miner on 05-10-2024 Platelets (Bld) [#/Vol] Platelets [#/vol ume] in Blood by Automated count 150-450 [facility] Potassium [Moles/volume] in Serum or PlasmaOrdered By: Kaz Miner on 05-10-2024 Potassium [Moles/Vol] Potassium [Moles/volume] in Serum or Plasma 3.5-5.1 [facility] Protein Test strip (U) [Mass /Vol]Ordered By: Kaz Miner on 05-10-2024 Protein (U) [Mass/Vol] Protein [Mass/volume] in Urine by Test strip Negative [facility] Protein [Mass/volume] in Ser um or PlasmaOrdered By: Kaz Miner on 05-10-2024 Protein [Mass/Vol] Protein [Mass/volume] in Serum or Plasma 6.4-8.9 [facility] RBC Auto (Bld) [#/Vol]Ordere d By: Kaz Miner on 05-10-2024 RBC (Bld) [#/Vol] Erythrocytes [#/volume] in Blood by Automated count 3.60-5.00 [facility] Serum or plasma albumin/glob ulin mass ratioOrdered By: Kaz Miner on 05-10-2024 Albumin/Globulin [Mass ratio] Serum or plasma albumin/globulin mass ratio [facility] Serum or plasma anion gap de terminationOrdered By: Kaz Miner on 05-10-2024 Anion gap [Moles/Vol] Serum or plasma anion gap determination 6.0-15.0 [facility] Sodium [Moles/volume] in Ser um or PlasmaOrdered By: Kaz Miner on 05-10-2024 Sodium [Moles/Vol] Sodium [Moles/volume] in Serum or Plasma 136-145 [facility] Specific gravity Test strip (U) [Rel density]Ordered By: Kaz Miner on 05-10-2024 Specific gravity (U) [Rel density] Specific gravity of Urine by Test strip 1.001-1.030 [facility] Urea nitrogen [Mass/volume] in Serum or PlasmaOrdered By: Kaz Miner on 05-10-2024 Urea nitrogen [Mass/Vol] Urea nitrogen [Mass/volume] in Serum or Plasma 7-25 [facility] Urobilinogen Test strip (U) [Mass/Vol]Ordered By: Kaz Miner on 05-10-2024 Urobilinogen (U) [Mass/Vol] Urobilinogen [Mass/volume] in Urine by Test strip Normal [facility] WBC Auto (Bld) [#/Vol]Ordere d By: Kaz Miner on 05-10-2024 WBC (Bld) [#/Vol] Leukocytes [#/volume] in Blood by Automated count High 3.8-11.6 [facility] pH Test strip (U)Ordered By: Kaz Miner on 05-10-2024 pH (U) pH of Urine by Test strip 5.0-9.0 [facility] HCG ( test) Ql (U)o n 05-09-2024 Interpretation and review of laboratory results Normal [facility] Preg Test, Ur Negative Negative [facility] Urinalysis macro (dipstick) panel (U)on 05-09-2024 Bilirubin, UA Negative Negative - 4(70) +++ mg/dL [facility] Blood, UA Negative Negative - 50 Todd/mcL [facility] Clarity, UA Clear [facility] Color, UA Yellow [facility] Glucose, UA Negative Negative - 2000(110) ++++ mg/dL [facility] Interpretation and review of laboratory results Normal [facility] Ketones, UA Negative Negative - 160(16) ++++ mg/dL [facility] Leukocytes, UA Negative Negative - 500+++ Mavis/mcL [facility] Nitrite, UA Negative Negative - Positive [facility] pH, UA 6 5 - 9 [facility] Protein, UA Negative Negative - 2000(20) ++++ mg/dL [facility] Spec Grav, UA 1.01 1 - 1.03 [facility] Urobilinogen, UA 1.0 0.2 - 12 mg/dL [facility] Appearance of UrineOrdered B y: Shawna Healy on 05-08-2024 Appearance (U) Urine appearance Clear [facility] Bilirubin Test strip Ql (U)O rdered By: Shawna Healy on 05-08-2024 Bilirubin Ql (U) Bilirubin.total [Presence] in Urine by Test strip Negative [facility] Bilirubin.total [Presence] i n Urine by Test stripOrdered By: Shawna Healy on 05-08-2024 Bilirubin Ql (U) Negative [facility] Color Auto (U)Ordered By: Yosef Healy on 05-08-2024 Color (U) Color of Urine by Auto Yellow [facility] Color of Urine by AutoOrdere d By: Shawna Healy on 05-08-2024 Color (U) Light-yellow Normal [facility] Comment on above: Order Comment: Name Collection Type:: Clean-Voided Midstream Performed By: #### F E PRO, CMP wRFX A1C #### [facility] [address] Glucose [Mass/volume] in Uri ne by Test stripOrdered By: Shawna Healy on 05-08-2024 Glucose Test strip (U) [Mass/Vol] Normal mg/dL Normal [facility] Glucose Test strip (U) [Mass/Vol] Glucose [Mass/volume] in Urine by Test strip Normal [facility] Hemoglobin Test strip Ql (U) Ordered By: Shawna Healy on 05-08-2024 Hemoglobin Ql (U) Negative Negative [facility] Hemoglobin Ql (U) Hemoglobin [Presence] in Urine by Test strip Negative [facility] Ketones Test strip Ql (U)Ord ered By: Shawna Healy on 05-08-2024 Ketones Ql (U) Ketones [Presence] in Urine by Test strip Negative [facility] Ketones [Presence] in Urine by Test stripOrdered By: Shawna Healy on 05-08-2024 Ketones Ql (U) Negative Normal Negative [facility] Comment on above: Order Comment: Name Collection Type:: Clean-Voided Midstream Performed By: #### F E PRO, CMP wRFX A1C #### [facility] [address] Laboratory - Chemistry and C hemistry - challengeon 05-08-2024 Glucose (U) [Mass/Vol] Negative [facility] Specific gravity (U) [Rel density] 1.010 [facility] Urobilinogen (U) [Mass/Vol] 0.2 mg/dL [facility] Laboratory - Specimen inform ationon 05-08-2024 Color (U) yellow [facility] Laboratory - Urinalysison Protein Ql (U) Negative [facility] Leukocyte esterase [Presence ] in Urine by Test stripOrdered By: Shawna Healy on 05-08-2024 Leukocyte esterase Test strip Ql (U) Negative Normal Negative [facility] Comment on above: Order Comment: Name Collection Type:: Clean-Voided Midstream Performed By: #### F E PRO, CMP wRFX A1C #### [facility] [address] Leukocyte esterase Test strip Ql (U) Leukocyte esterase [Presence] in Urine by Test strip Negative [facility] Nitrite Test strip Ql (U)Ord ered By: Shawna Healy on 05-08-2024 Nitrite Ql (U) Nitrite [Presence] in Urine by Test strip Negative [facility] Nitrite [Presence] in Urine by Test stripOrdered By: Shawna Healy on 05-08-2024 Nitrite Ql (U) Negative [facility] No Panel Informationon 05-08 Urine Occult Blood Negative [facility] Protein Test strip (U) [Mass /Vol]Ordered By: Shawna Healy on 11-05-2024 Protein (U) [Mass/Vol] Negative Negative [facility] Protein (U) [Mass/Vol] Protein [Mass/volume] in Urine by Test strip Negative [facility] Specific gravity Test strip (U) [Rel density]Ordered By: Shawna Healy on 05-08-2024 Specific gravity (U) [Rel density] 1.008 1.001-1.030 [facility] Specific gravity (U) [Rel density] Specific gravity of Urine by Test strip 1.001-1.030 [facility] Urinalysison 05-08-2024 Bilirubin,Urine Negative Normal Negative [facility] Comment on above: Order Comment: Name Collection Type:: Clean-Voided Midstream Performed By: #### F E PRO, CMP wRFX A1C #### [address] Glucose Ql (U) Normal Normal Normal [facility] Comment on above: Order Comment: Name Collection Type:: Clean-Voided Midstream Performed By: #### F E PRO, CMP wRFX A1C #### [place] [address] [place] Nitrite,Urine Negative Normal Negative [facility] Comment on above: Order Comment: Name Collection Type:: Clean-Voided Midstream Performed By: #### F E PRO, CMP wRFX A1C #### [place] [address] [place] Occult Blood,Urine Negative Normal Negative [facility] Comment on above: Order Comment: Name Collection Type:: Clean-Voided Midstream Result Comment: PERF ORMED BY: [place] [address] PATHOLOGIST [employer]DEL LEONARDO LARA M.D. Performed By: #### F E PRO, CMP wRFX A1C #### [place] [address] [place] Protein,Urine Negative Normal Negative [facility] Comment on above: Order Comment: Name Collection Type:: Clean-Voided Midstream Performed By: #### F E PRO, CMP wRFX A1C #### [place] [address] [place] Specificy [place],Urine 1.008 Normal 1.001-1.030 [facility] Comment on above: Order Comment: Name Collection Type:: Clean-Voided Midstream Performed By: #### F E PRO, CMP wRFX A1C #### [facility] [address] [place] [address] Urobilinogen,Urine Normal Normal Normal [facility] Comment on above: Order Comment: Name Collection Type:: Clean-Voided Midstream Performed By: #### F E PRO, CMP wRFX A1C #### [facility] [address] [place] [address] Urine Cultureon 05-08-2024 Bacteria identified Cx Nom (U) No Growth 2 Days PERFORMED BY: [place] [address] PATHOLOGIST [employer] LEONARDO LARA M.D. Normal [facility] Comment on above: Performed By: #### F E PRO, CMP wRFX A1C #### [facility] [address] [place] [address] Urine appearanceOrdered By: Shawna Healy on 05-08-2024 Appearance (U) Clear Normal Clear [facility] Comment on above: Order Comment: Name Collection Type:: Clean-Voided Midstream Performed By: #### F E PRO, CMP wRFX A1C #### [address] Urine cultureOrdered By: Demond Healy on 05-08-2024 Bacteria identified Cx Nom (U) Urine culture [facility] Urobilinogen Test strip (U) [Mass/Vol]Ordered By: Shawna Healy on 05-08-2024 Urobilinogen (U) [Mass/Vol] Normal mg/dL Normal [facility] Urobilinogen (U) [Mass/Vol] Urobilinogen [Mass/volume] in Urine by Test strip Normal [facility] pH Test strip (U)Ordered By: Shawna Healy on 05-08-2024 pH (U) pH of Urine by Test strip 5.0-9.0 [facility] pH of Urine by Test stripOrd ered By: Shawna Healy on 05-08-2024 pH (U) 6.0 [pH] Normal 5.0-9.0 [facility] Comment on above: Order Comment: Name Collection Type:: Clean-Voided Midstream Performed By: #### F E PRO, CMP wRFX A1C #### [facility] [address] [place] [address] [facility] Capillary Glucose POCon Glucose [Mass/Vol] 95 mg/dL Normal 55-99 [facility] Comment on above: Performed By: #### 2 [id number] #### [facility] [address] [place] [address] ED Clinical Summaryon 2023 ED Clinical Summary ED Clinical Summary [address] [address] ED Clinical Summary Person Information Name: JACK REA [facility] Age: 29 Years : 1995 Sex: Female Language: Greek PCP: SHAWNA HEALY CNP Marital Status: Visit [...] 05/06/2024 00:17:31 05/06/2024 00:17:31 05/06/2024 00:17:31 ADDRESS: [address] [place] [id number] [facility] DOC NOTES: MEDICAL INFORMATION: Prescriptions Given: New Medications [id number], [address] [place], [place] [id number], [phone] promethazine (promethazine 12.5 mg oral tablet) 1 [...] Without Cause Follow up: With: Address: When: HSAWNA HEALY [employer] [place] [phone] Business (1) In 3 days DIAGNOSIS: Headache; UTI (urinary tract infection) Normal [facility] ED Note-Physicianon 05-06-20 ED Note-Physician ED Note-Physician [...] earlier in the day but denies any zpvy-vto-avlxttd medications. She denies any chance of current [...] and Complexity of Problems Differential Diagnosis: [] [facility] Data External documents reviewed: N/A My EKG [...] nausea/vomiting, # 10 tab(s), Refills(s) 0, Pharmacy: [id number], 160, cm, 05/05/24 21:07:00 EDT, Height/Length Dosing, [...] Information SHAWNA HEALY In 3 days [address] [facility] [place] [phone] Business (1) Additional Instructions: Patient Education Urinary Tract Infection, Adult General Headache Without Cause Problem List/Past Medical History Ongoing (more content not included)... Normal [facility] Comment on above: Result Comment: Elec tronically Signed By: Darwin Irizarry DO\.br\Date and Time Signed: 05/06/24 00:13 EDT ED Patient Summaryon 024 ED Patient Summary ED Patient Summary [address] [address] Patient Discharge Instructions Person Information Name: JACK REA Age: 29 Years Arrival Date: 05/05/2024 20:53:05 Discharge Diagnosis: Headache; UTI (urinary tract infection) Primary Care Physician: SHAWNA HEALY CNP Provider Information Primary Provider: Darwin Irizarry DO Advanced Manager Of Production:None The exam and treatment you received in the Emergency Department were for an urgent problem and are not intended as complete care. It is important that you follow up with a doctor, nurse practitioner, or physician???s temporary office assistant for ongoing care. If your symptoms [...] Follow-up Instructions: With: Address: When: SHAWNA HEALY [address] [place] [phone] Business (1) In 3 days In the event that this physician does not participate in your insurance network, please consult with your insurance company to find a nearby participating provider. Patient Education Materials: Urinary Tract Infection, Adult; General Headache Without Cause A MESSAGE TO ALL PATIENTS REGARDING OPIOIDS PRESCRIPTION OPIOIDS: WHAT YOU NEED TO KNOW Prescription opioids can be used to help relieve jzwcwpmy-uw-nwcjtz pain and are often prescribed following a [...] addiction, te (more content not included)... Normal [facility] Basophils Auto (Bld) [#/Vol] on 05-04-2024 Basophils (Bld) [#/Vol] 0.05 10*3/uL <0.11 [facility] Basophils (Bld) [#/Vol] Automated basoph il count <0.11 [facility] Basophils/100 WBC Auto (Bld) on 05-04-2024 Basophils/100 WBC (Bld) 0.4 % F [facility] Basophils/100 WBC (Bld) Automated basophil % [facility] Blood manual differential co mment interpretation narrativeon 05-04-2024 Manual differential comment Taurus (Bld) [Interp] Auto [facility] Manual differential comment [place] (Bld) [Interp] Blood manual differential comment interpretation narrative [facility] C Urineon 05-04-2024 Bacteria identified Cx [...] Locations R1: This test was performed at: [facility], [address] [place] [address], [phone] , , [facility] Comment on above: Performed By: #### 2 [id number] #### [facility] [address] [place] [address] CBC W Auto Differential pane l (Bld)on 05-04-2024 Basophils (Bld) [#/Vol] 0.05 10*3/uL Normal <0.11 [facility] Comment on above: Order Comment: Speci men Type: BLOOD SPECIMEN Ordering Facility: [facility] Address: [address] [place] [address] Performed By: #### 5 7021-8 #### [facility] CLIA [id number] [address] [place] [address] [place] Basophils/100 WBC (Bld) 0.4 % Normal [facility] Comment on above: Order Comment: Speci men Type: BLOOD SPECIMEN Ordering Facility: [facility] Address: [address] [place] [address] Performed By: #### 5 7021-8 #### [facility] CLIA [id number] [address] [place] [address] [place] Differential cell count method Nom (Bld) Auto Normal [facility] Comment on above: Order Comment: Speci men Type: BLOOD SPECIMEN Ordering Facility: [facility] Address: [address] [place] [address] Performed By: #### 5 7021-8 #### [facility] CLIA [id number] [address] [place] [address] [place] Eosinophils (Bld) [#/Vol] 0.13 10*3/uL Normal <0.46 [facility] Comment on above: Order Comment: Speci men Type: BLOOD SPECIMEN Ordering Facility: [facility] Address: [address] [place] [address] Performed By: #### 5 7021-8 #### [facility] CLIA [id number] [address] [place] [address] [place] Eosinophils/100 WBC (Bld) 1.1 % Normal [facility] Comment on above: Order Comment: Speci men Type: BLOOD SPECIMEN Ordering Facility: [facility] Address: [address] [place] [address] Performed By: #### 5 7021-8 #### [facility] CLIA [id number] [address] [place] [address] [place] Erythrocyte distribution width (RBC) [Ratio] 12.1 % Normal 11.5-15.0 [facility] Comment on above: Order Comment: Speci men Type: BLOOD SPECIMEN Ordering Facility: [facility] Address: [address] [place] [address] Performed By: #### 5 7021-8 #### [facility] CLIA [id number] [address] [place] [address] [place] Hematocrit (Bld) [Volume fraction] 41.3 % Normal 36.0-46.0 [facility] Comment on above: Order Comment: Speci men Type: BLOOD SPECIMEN Ordering Facility: [facility] Address: [address] [place] [address] Performed By: #### 5 7021-8 #### [facility] CLIA [id number] [address] [place] [address] [place] Hemoglobin (Bld) [Mass/Vol] 14.3 g/dL Normal 11.5-15.5 [facility] Comment on above: Order Comment: Speci men Type: BLOOD SPECIMEN Ordering Facility: [facility] Address: [address] [place] [address] Performed By: #### 5 7021-8 #### [facility] CLIA [id number] [address] [place] [address] [place] Immature granulocytes (Bld) [#/Vol] 0.04 10*3/uL Normal <0.10 [facility] Comment on above: Order Comment: Speci men Type: BLOOD SPECIMEN Ordering Facility: [facility] Address: [address] [place] [address] Performed By: #### 5 7021-8 #### [facility] CLIA [id number] [address] [place], [place] [address] [place] Immature granulocytes/100 WBC (Bld) 0.3 % Normal [facility] Comment on above: Order Comment: Speci men Type: BLOOD SPECIMEN Ordering Facility: [facility] Address: [address] [place] [address] Performed By: #### 5 7021-8 #### [facility] CLIA [id number] [address] [place] [address] [place] Lymphocytes (Bld) [#/Vol] 3.21 10*3/uL Normal 1.00-4.00 [facility] Comment on above: Order Comment: Speci men Type: BLOOD SPECIMEN Ordering Facility: [facility] Address: [address] [place] [address] Performed By: #### 5 7021-8 #### [facility] CLIA [id number] [address] [place] [address] [place] Lymphocytes/100 WBC (Bld) 27.3 % Normal [facility] Comment on above: Order Comment: Speci men Type: BLOOD SPECIMEN Ordering Facility: [facility] Address: [address] [place] [address] Performed By: #### 5 7021-8 #### [facility] CLIA [id number] [address] [place] [address] [place] MCH (RBC) [Entitic mass] 30.5 pg Normal 26.0-34.0 [facility] Comment on above: Order Comment: Speci men Type: BLOOD SPECIMEN Ordering Facility: [facility] Address: [address] [place] [address] Performed By: #### 5 7021-8 #### [facility] CLIA [id number] [address] [place] [address] [place] MCHC (RBC) [Mass/Vol] 34.6 g/dL Normal 30.5-36.0 [facility] Comment on above: Order Comment: Speci men Type: BLOOD SPECIMEN Ordering Facility: [facility] Address: [address] [place] [address] Performed By: #### 5 7021-8 #### [facility] CLIA [id number] [address] [place] [address] [place] MCV (RBC) [Entitic vol] 88.1 fL Normal 80.0-100.0 [facility] Comment on above: Order Comment: Speci men Type: BLOOD SPECIMEN Ordering Facility: [facility] Address: [address] [place] [address] Performed By: #### 5 7021-8 #### [facility] CLIA [id number] [address] [place] [address] [place] Monocytes (Bld) [#/Vol] 0.72 10*3/uL Normal <0.87 [facility] Comment on above: Order Comment: Speci men Type: BLOOD SPECIMEN Ordering Facility: [facility] Address: [address] [place] [address] Performed By: #### 5 7021-8 #### [facility] CLIA [id number] [address] [place] [address] [place] Monocytes/100 WBC (Bld) 6.1 % Normal [facility] Comment on above: Order Comment: Speci men Type: BLOOD SPECIMEN Ordering Facility: [facility] Address: [address] [place] [address] Performed By: #### 5 7021-8 #### [facility] CLIA [id number] [address] [place] [address] [place] Neutrophils (Bld) [#/Vol] 7.59 10*3/uL High 1.45-7.50 [facility] Comment on above: Order Comment: Speci men Type: BLOOD SPECIMEN Ordering Facility: [facility] Address: [address] [place] [address] Performed By: #### 5 7021-8 #### [facility] CLIA [id number] [address] [place] [address] [place] Neutrophils/100 WBC (Bld) 64.8 % Normal [facility] Comment on above: Order Comment: Speci men Type: BLOOD SPECIMEN Ordering Facility: [facility] Address: [address] [place] [address] Performed By: #### 5 7021-8 #### [facility] CLIA [id number] [address] [place] [address] [place] Nucleated RBC (Bld) [#/Vol] 10*3/uL Normal <0.01 [facility] Comment on above: Order Comment: Speci men Type: BLOOD SPECIMEN Ordering Facility: [facility] Address: [address] [place] [address] Performed By: #### 5 7021-8 #### [facility] CLIA [id number] [address] [place] [address] [place] Nucleated RBC/100 WBC (Bld) [Ratio] 0.0 /100 WBC Normal [facility] Comment on above: Order Comment: Speci men Type: BLOOD SPECIMEN Ordering Facility: [facility] Address: [address] [place] [address] Performed By: #### 5 7021-8 #### [facility] CLIA [id number] [address] [place] [address] [place] Platelet mean volume (Bld) [Entitic vol] 9.9 fL Normal 9.0-12.7 [facility] Comment on above: Order Comment: Speci men Type: BLOOD SPECIMEN Ordering Facility: [facility] Address: [address] [place] [address] Performed By: #### 5 7021-8 #### [facility] CLIA [id number] [address] [place] [address] [place] Platelets (Bld) [#/Vol] 241 10*3/uL Normal 150-400 [facility] Comment on above: Order Comment: Speci men Type: BLOOD SPECIMEN Ordering Facility: [facility] Address: [address] [place] [address] Performed By: #### 5 7021-8 #### [facility] CLIA [id number] [address] [place] [address] [place] RBC (Bld) [#/Vol] 4.69 10*6/uL Normal 3.90-5.20 [facility] Comment on above: Order Comment: Speci men Type: BLOOD SPECIMEN Ordering Facility: [facility] Address: [address] [place] [address] Performed By: #### 5 7021-8 #### [facility] CLIA [id number] [address] [place] [address] [place] WBC (Bld) [#/Vol] 11.74 10*3/uL High 3.70-11.00 [facility] Comment on above: Order Comment: Speci men Type: BLOOD SPECIMEN Ordering Facility: [facility] Address: [address] [place] [address] Performed By: #### 5 7021-8 #### [facility] CLIA [id number] [address] [place] [address] [place] Comprehensive metabolic 2000 panelon 05-04-2024 Albumin [Mass/Vol] 4.4 g/dL Normal 3.9-4.9 [facility] Comment on above: Order Comment: Speci men Type: BLOOD SPECIMEN Ordering Facility: [facility] Address: [address] [place] [address] Performed By: #### 1 9123-9, [id number], 82526-4 #### [facility] CLIA [id number] [address] [place] [address] [place] ALP [Catalytic activity/Vol] 78 U/L Normal 34-123 [facility] Comment on above: Order Comment: Speci men Type: BLOOD SPECIMEN Ordering Facility: [facility] Address: [address] [id number] Performed By: #### 1 9123-9, [id number], 83248-3 #### [facility] CLIA [id number] [address] [place] [address] [place] ALT [Catalytic activity/Vol] 15 U/L Normal 7-38 [facility] Comment on above: Order Comment: Speci men Type: BLOOD SPECIMEN Ordering Facility: [facility] Address: [address] [place] [address] Performed By: #### 1 9123-9, [id number], 43395-9 #### [facility] CLIA [id number] [address] [place] [address] [place] Anion gap [Moles/Vol] 13 mmol/L Normal 8-15 [facility] Comment on above: Order Comment: Speci men Type: BLOOD SPECIMEN Ordering Facility: [facility] Address: [address] [place] [address] Performed By: #### 1 9123-9, [id number], 42414-8 #### [facility] CLIA [id number] [address] [place] [address] [place] AST [Catalytic activity/Vol] 17 U/L Normal 13-35 [facility] Comment on above: Order Comment: Speci men Type: BLOOD SPECIMEN Ordering Facility: [facility] Address: [address] [place] [address] Performed By: #### 1 9123-9, [id number], 80718-2 #### [facility] CLIA [id number] [address] [place], [place] [address] [place] Bilirubin [Mass/Vol] 0.5 mg/dL Normal 0.2-1.3 [facility] Comment on above: Order Comment: Speci men Type: BLOOD SPECIMEN Ordering Facility: [facility] Address: [address] [place] [address] Performed By: #### 1 9123-9, [id number], 03629-3 #### [facility] CLIA [id number] [address] [place], [place] [address] [place] Calcium [Mass/Vol] 9.1 mg/dL Normal 8.5-10.2 [facility] Comment on above: Order Comment: Speci men Type: BLOOD SPECIMEN Ordering Facility: [facility] Address: [address] [place] [address] Performed By: #### 1 9123-9, [id number], #### [facility] CLIA [id number] [address] [place] [address] [place] Chloride [Moles/Vol] 105 mmol/L Normal 98-107 [facility] Comment on above: Order Comment: Speci men Type: BLOOD SPECIMEN Ordering Facility: [facility] Address: [address] [place] [address] Performed By: #### 1 9123-9, [id number], #### [facility] CLIA [id number] [address] [place] [address] [place] CO2 [Moles/Vol] 21 mmol/L Low 22-30 [facility] Comment on above: Order Comment: Speci men Type: BLOOD SPECIMEN Ordering Facility: [facility] Address: [address] [place] [address] Performed By: #### 1 9123-9, [id number], #### [facility] CLIA [id number] [address] [place], [place] [address] [place] Creatinine [Mass/Vol] 0.67 mg/dL Normal 0.58-0.96 [facility] Comment on above: Order Comment: Speci men Type: BLOOD SPECIMEN Ordering Facility: [facility] Address: [address] [place], [place] [address] Performed By: #### 1 9123-9, [id number], 25419-3 #### [facility] CLIA [id number] [address] [place] [address] [place] [facility] Creatinine and Glomerular filtration rate.predicted panel (S/P/Bld) 121 mL/min/1.73m??? Normal >=60 [facility] Comment on above: Order Comment: Dean dixon Type: BLOOD SPECIMEN Ordering Facility: [facility] Address: [address] [place] [address] Result Comment: Shabnam mated Glomerular Filtration Rate [...] actual GFR. Performed By: #### 1 9123-9, [id number], 00832-8 #### [facility] CLIA [id number] [address] [place] [address] [place] [facility] Glucose [Mass/Vol] 93 mg/dL Normal 74-99 [facility] Comment on above: Order Comment: Dean dixon Type: BLOOD SPECIMEN Ordering Facility: [facility] Address: [address] [place] [address] Result Comment: The [place] [employer] (ADA) provides guidance for cutoff [...] Standards of Medical Care in Diabetes 2016, [place] [employer]. Diabetes Care. 2016.39(Suppl 1). Performed By: #### 1 9123-9, [id number], 23787-2 #### [facility] CLIA [id number] [address] [place] [address] [place] Potassium [Moles/Vol] 3.7 mmol/L Normal 3.7-5.1 [facility] Comment on above: Order Comment: Speci men Type: BLOOD SPECIMEN Ordering Facility: [facility] Address: [address] [place] [address] Performed By: #### 1 9123-9, [id number], 19933-7 #### [facility] CLIA [id number] [address] [place] [address] [place] Protein [Mass/Vol] 6.5 g/dL Normal 6.3-8.0 [facility] Comment on above: Order Comment: Speci men Type: BLOOD SPECIMEN Ordering Facility: [facility] Address: [address] [place] [address] Performed By: #### 1 9123-9, [id number], 72593-6 #### [facility] CLIA [id number] [address] [place] [address] [place] Sodium [Moles/Vol] 139 mmol/L Normal 136-144 [facility] Comment on above: Order Comment: Speci men Type: BLOOD SPECIMEN Ordering Facility: [facility] Address: [address] [place] [address] Performed By: #### 1 9123-9, [id number], 82783-6 #### [facility] CLIA [id number] [address] [place] [address] [place] Urea nitrogen [Mass/Vol] 7 mg/dL Normal 7-21 [facility] Comment on above: Order Comment: Speci men Type: BLOOD SPECIMEN Ordering Facility: [facility] Address: [address] [place] [address] Performed By: #### 1 9123-9, [id number], [id number] #### [facility] CLIA [id number] [address] [place] [address] [place] [id number] 05-04-2024 ECG01 Ventricular Rate : 79 BPM Atrial Rate : 79 BPM P-R Interval : 138 ms QRS Duration : 86 ms Q-T Interval : 376 ms QTC Calculation(Bazett) : 431 ms Calculated P [place] : 28 degrees Calculated R [place] : 59 degrees Calculated T [place] : 32 degrees NORMAL SINUS RHYTHM NORMAL ECG NOTE: PLEASE SEE PHYSICIAN'S NOTE FROM E.D. VISIT Confirmed by Anthony CHANG, JESÚS ([id number]), online editor NANCY RIVERA ([id number]) on 05/10/2024 10:37:45 PM NAME : JACK REA PID : [id number] : 1995 Gender : Female Race : ORD : Procedure Date : May 04 2024 19:29:23 Edit Date : May 10 2024 22:37:46 Diagnosis: NORMAL SINUS RHYTHM NORMAL ECG NOTE: PLEASE SEE PHYSICIAN'S NOTE FROM E.D. VISIT Confirmed by Anthony CHANG ERIC ([id number]), online editor NANCY RIVERA ([id number]) on 05/10/2024 10:37:45 PM Test Reason : Location : 2 : [place] [address] Overread By : Anthony CHANG ERIC Edited By : NANCY RIVERA Referred By : , Acquired by : Sowmya LOPEZ [facility] ED Triage Noteon 05-04-2024 ED Triage Note HNO ID: [id number] Author: YU MURILLO DO Service: Emergency Medicine Author Type: Physician [...] platform with assistance from bedside clinician. SIGNATURE: DO Sowmya Jain [facility] Eosinophils/100 WBC Auto (Bl d)on 05-04-2024 Eosinophils/100 WBC (Bld) 1.1 % [facility] Eosinophils/100 WBC (Bld) Automated eosinophil % [facility] Erythrocyte distribution wid th Auto (RBC) [Ratio]on 05-04-2024 Erythrocyte distribution width (RBC) [Ratio] 12.1 % .-15.0 [facility] Erythrocyte distribution width (RBC) [Ratio] Erythrocyte distribution width [Ratio] by Automated count 11.-15.0 [facility] HIGH SENSITIVITY TROPONIN T (INITIAL)on 05-04-2024 Troponin T.cardiac High sensitivity method [Mass/Vol] <6 Normal <12 [facility] Comment on above: Order Comment: Speci men Type: BLOOD SPECIMEN Ordering Facility: [facility] Address: [address] [place] [address] Performed By: #### 1 9123-9, [id number], [id number] #### [facility] CLIA [id number] [address] [place] [address] [place] Hematocrit Auto (Bld) [Volum e fraction]on 05-04-2024 Hematocrit (Bld) [Volume fraction] 41.3 % 36.0-46.0 [facility] Hematocrit (Bld) [Volume fraction] Hematocrit [Volume Fraction] of Blood by Automated count 36.0-46.0 [facility] Hemoglobin [Mass/volume] in Bloodon 05-04-2024 Hemoglobin (Bld) [Mass/Vol] 14.3 g/dL 11.5-15.5 [facility] Hemoglobin (Bld) [Mass/Vol] Hemoglobin [Mass/volume] in Blood 11.5-15.5 [facility] - Chemistry and C hemistry - challengeon 05-04-2024 Albumin [Mass/Vol] 4.4 g/dL 3.9-4.9 [facility] ALP [Catalytic activity/Vol] 78 U/L 34-123 [facility] ALT [Catalytic activity/Vol] 15 U/L 7-38 [facility] AST [Catalytic activity/Vol] 17 U/L 13-35 [facility] Bilirubin [Mass/Vol] 0.5 mg/dL 0.2-1.3 [facility] Calcium [Mass/Vol] 9.1 mg/dL 8.5-10.2 [facility] Chloride [Moles/Vol] 105 mmol/L 98-107 [facility] CO2 [Moles/Vol] 21 mmol/L Low 22-30 [facility] Creatinine [Mass/Vol] 0.67 mg/dL 0.58-0.96 [facility] Glucose [Mass/Vol] 93 mg/dL 74-99 [facility] Comment on above: The [place] Diab[employer] Association (ADA) provides guidance for [...] Standards of Medical Care in Diabetes 2016, [place] [employer]. Diabetes Care. 2016.39(Suppl 1). Magnesium [Mass/Vol] 2.2 mg/dL 1.7-2.3 [facility] Potassium [Moles/Vol] 3.7 mmol/L 3.7-5.1 [facility] Sodium [Moles/Vol] 139 mmol/L 136-144 [facility] Urea nitrogen [Mass/Vol] 7 mg/dL 7-21 [facility] - Hematology and Cell countson 05-04-2024 Eosinophils (Bld) [#/Vol] 0.13 10*3/uL <0.46 [facility] Immature granulocytes (Bld) [#/Vol] 0.04 10*3/uL <0.10 [facility] Immature granulocytes/100 WBC (Bld) 0.3 % [facility] Leukocytes [#/volume] correc gemini for nucleated erythrocytes in Blood by Automated counon 05-04-2024 WBC corrected for nucl RBC Auto (Bld) [#/Vol] 11.74 k/uL High 3.70-11.00 [facility] WBC corrected for nucl RBC Auto (Bld) [#/Vol] Leukocytes [#/volume] corrected for nucleated erythrocytes in Blood by Automated coun High 3.70-11. [facility] Lymphocytes Auto (Bld) [#/Vo l]on 05-04-2024 Lymphocytes (Bld) [#/Vol] 3.21 10*3/uL 1.00-4.00 [facility] Lymphocytes (Bld) [#/Vol] Lymphocytes [#/volume] in Blood by Automated count 1.00-4.00 [facility] Lymphocytes/100 WBC Auto (Bl d)on 05-04-2024 Lymphocytes/100 WBC (Bld) 27.3 % [facility] Lymphocytes/100 WBC (Bld) Lymphocytes/100 leukocytes in Blood by Automated count [facility] MCH Auto (RBC) [Entitic mass ]on 05-04-2024 MCH (RBC) [Entitic mass] 30.5 pg 26.0-34.0 [facility] MCH (RBC) [Entitic mass] MCH [Entitic ma ss] by Automated count 26.0-34.0 [facility] MCHC Auto (RBC) [Mass/Vol]on 05-04-2024 MCHC (RBC) [Mass/Vol] 34.6 g/dL 30.5-36.0 [facility] MCHC (RBC) [Mass/Vol] MCHC [Mass/volume] by Automated count 30.5-36.0 [facility] MCV Auto (RBC) [Entitic vol] on 05-04-2024 MCV (RBC) [Entitic vol] 88.1 fL 80.0-100.0 [facility] MCV (RBC) [Entitic vol] MCV [Entitic vol ume] by Automated count 80.0-100.0 [facility] Magnesium SerPl-mCncon 05-04 Magnesium [Mass/Vol] 2.2 mg/dL Normal 1.7-2.3 [facility] Comment on above: Order Comment: Speci men Type: BLOOD SPECIMEN Ordering Facility: [facility] Address: [address] [place] [address] Performed By: #### 1 9123-9, [id number], [id number] #### [facility] CLIA [id number] [address] [place] [address] [place] [address] [place] Monocytes Auto (Bld) [#/Vol] on 05-04-2024 Monocytes (Bld) [#/Vol] 0.72 10*3/uL <0.87 [facility] Monocytes (Bld) [#/Vol] Automated blood monocyte count <0.87 [facility] Monocytes/100 WBC Auto (Bld) on 05-04-2024 Monocytes/100 WBC (Bld) 6.1 % [facility] Monocytes/100 WBC (Bld) Automated monocyte % [facility] Neutrophils Auto (Bld) [#/Vo l]on 05-04-2024 Neutrophils (Bld) [#/Vol] 7.59 10*3/uL High 1.45-7.50 [facility] Neutrophils (Bld) [#/Vol] Neutrophils [#/volume] in Blood by Automated count High 1.45-7.50 [facility] Neutrophils/100 WBC Auto (Bl d)on 05-04-2024 Neutrophils/100 WBC (Bld) 64.8 % [facility] Neutrophils/100 WBC (Bld) Automated neutrophil % [facility] No Panel Informationon 05-04 Estimated GFR (CKD-EPI) 121 mL/min/1.73m??? >=6 0 [facility] Comment on above: Estimated Glomerular Filtration [...] Hi Sens Cardiac Interven <6 ng/L <12 [facility] Nucleated RBC Auto (Bld) [#/ Vol]on 05-04-2024 Nucleated RBC (Bld) [#/Vol] 10*3/uL <0.01 [facility] Nucleated RBC (Bld) [#/Vol] Nucleated erythrocytes [#/volume] in Blood by Automated count <0.01 [facility] Nucleated erythrocytes [Pres ence] in Blood by Automated counton 05-04-2024 Nucleated RBC Auto Ql (Bld) 0.0 /100{WBC} [facility] Nucleated RBC Auto Ql (Bld) Nucleated erythrocytes [Presence] in Blood by Automated count [facility] Platelet mean volume Auto (B ld) [Entitic vol]on 05-04-2024 Platelet mean volume (Bld) [Entitic vol] 9.9 fL 9.0-12.7 [facility] Platelet mean volume (Bld) [Entitic vol] Platelet mean volume [Entitic volume] in Blood by Automated count 9.0-12.7 [facility] Platelets Auto (Bld) [#/Vol] on 05-04-2024 Platelets (Bld) [#/Vol] 241 10*3/uL 150-400 [facility] Platelets (Bld) [#/Vol] Platelets [#/vol ume] in Blood by Automated count 150-400 [facility] Protein [Mass/volume] in Ser um or Plasmaon 05-04-2024 Protein [Mass/Vol] 6.5 g/dL 6.3-8.0 [facility] Protein [Mass/Vol] Protein [Mass/volume] in Serum or Plasma 6.3-8.0 [facility] RBC Auto (Bld) [#/Vol]on RBC (Bld) [#/Vol] 4.69 10*6/uL 3.90-5.20 [facility] RBC (Bld) [#/Vol] Erythrocytes [#/volume] in Blood by Automated count 3.90-5.20 [facility] Serum or plasma anion gap de terminationon 05-04-2024 Anion gap [Moles/Vol] 13 mmol/L 02-15 [facility] Anion gap [Moles/Vol] Serum or plasma anion gap determination 02-15 [facility] XR CHEST 2V FRONTAL/LATon XR CHEST 2V [...] tissues: Unremarkable. IMPRESSION: No acute radiographic abnormality. Senior Operator: FRENCH Transcribe Date/Time: May 04 2024 8:22P Dictated by : BRAIN MAIN MD This examination was interpreted and the report reviewed and electronically signed by: AYLEEN ROYAL MD on May 04 2024 8:24PM EST [id number] CN Normal [facility] CT Abdomen/Pelvis w/ Contras ton 05-03-2024 CT [...] 300 Contrast amount in ml's: 100 Normal [facility] ED Note-Physicianon 05-03-20 ED Note-Physician ED Note-Physician Basic Information Time Seen: Connor Zimmerman PA-C 05/02/2024 19:00 Chief Complaint Pt reports bilateral [...] for 3 day(s), 8 tab(s), Refill(s) 0, [id number], 160, cm, 05/02/24 19:02:00 EDT, Height/Length Dosing, 82.5, kg, 05/02/24 19:02:00 EDT, Weight Dosing cephalexin, 500 mg = 1 cap(s), Cap, Oral, Once, Stop date 05/02/24 22:43:00 EDT, STAT, Start date 05/02/24 22:43:00 EDT, 05/02/24 22:43:00 EDT cephalexin, 500 mg = 1 cap(s), Oral, q12hr, X 7 day(s), # 14 cap(s), Refills(s) 0, Pharmacy: [facility] #[id number], 160, cm, 05/02/24 19:02:00 EDT, Height/Length Dosing, 82.5, kg, 05/02/24 19:02:00 EDT, Weight Dosing docusate, 100 mg = 1 cap(s), Oral, BID, # 20 cap(s), Refills(s) 0, Pharmacy: [facility][id number], 160, cm, 05/02/24 19:02:00 EDT, Height/Length Dosing, 82.5, kg, 05/02/24 19:02:00 EDT, Weight Dosing ketorolac, 30 mg = 1 mL, Injection, IV Push, Once, Stop date 05/02/24 19:27:0 (more content not included)... Normal [facility] Comment on above: Result Comment: Elec tronically Signed By: Connor Zimmerman PA-C\.br\Date and Time Signed: 05/03/24 00:44 EDT\.br\Electronically Co-Signed By: Jesica Mccabe DO\.br\Date and Time Co-Signed: 05/03/24 01:20 EDT No [...] STAPHYLOCOCCUS EPIDERMIDIS, HAEMOLYTICUS, LUGDUNENSIS, SAPROPHYTICUS (URINA 0 [facility] STAPHYLOCOCCUS EPIDERMIDIS, HAEMOLYTICUS, LUGDUNENSIS, SAPROPHYTICUS (URINA Not detected [facility] STREPTOCOCCUS AGALACTIAE (GROUP B STREP) 0 [facility] STREPTOCOCCUS AGALACTIAE (GROUP B STREP) Not detected [facility] STREPTOCOCCUS PYOGENES (GROUP A STREP) 0 [facility] STREPTOCOCCUS PYOGENES (GROUP A STREP) Not detected [facility] BMPon 05-02-2024 Anion gap [Moles/Vol] 12 mmol/L Normal 6-16 [facility] Comment on above: Performed By: #### 2 [id number] #### [facility] [address] [place] [address] Calcium [Mass/Vol] 9.2 mg/dL Normal 8.9-11.1 [facility] Comment on above: Performed By: #### 2 [id number] #### [facility] [address] [place] [address] Chloride [Moles/Vol] 105 mmol/L Normal 101-111 [facility] Comment on above: Performed By: #### 2 [id number] #### [facility] [address] [place] [address] CO2 [Moles/Vol] 26 mmol/L Normal 21-31 [facility] Comment on above: Performed By: #### 2 [id number] #### [facility] [address] [place] [address] Creatinine [Mass/Vol] 0.7 mg/dL Normal 0.5-1.3 [facility] Comment on above: Performed By: #### 2 [id number] #### [facility] [address] [facility] [place] [address] Glucose [Mass/Vol] 94 mg/dL Normal 55-199 [facility] Comment on above: Performed By: #### 2 [id number] #### [facility] [address] [place] [address] Potassium [Moles/Vol] 3.6 mmol/L Normal 3.5-5.3 [facility] Comment on above: Performed By: #### 2 [id number] #### [facility] [address] [place] [address] Sodium [Moles/Vol] 139 mmol/L Normal 135-145 [facility] Comment on above: Performed By: #### 2 [id number] #### [facility] [address] [place] [address] Urea nitrogen [Mass/Vol] 8 mg/dL Normal 5-21 [facility] Comment on above: Performed By: #### 2 [id number] #### [facility] [address] [place] [address] Urea nitrogen/Creatinine [Mass ratio] 11 No Units Normal 10-20 [facility] Comment on above: Performed By: #### 2 [id number] #### [facility] [address] [place] [address] CBC w/ Auto Diffon 05-02- 4 Basophils/100 WBC (Bld) 0.4 % Normal 0.0-2.0 [facility] Comment on above: Performed By: #### 2 [id number] #### [facility] [address] [place] [address] Basophils/Leukocytes Auto (Bld) [Pure # fraction] 0.1 E9/L Normal 0.0-0.2 [facility] Comment on above: Performed By: #### 2 [id number] #### [facility] [address] [place] [address] Eosinophils (Bld) [#/Vol] 0.1 E9/L Normal 0.0-0.5 [facility] Comment on above: Performed By: #### 2 [id number] #### [facility] [address] [place] [address] Eosinophils/100 WBC (Bld) 0.7 % Normal 0.0-8.0 [facility] Comment on above: Performed By: #### 2 [id number] #### [facility] [address] [place] [address] Erythrocyte distribution width (RBC) [Ratio] 12.8 % Normal 10.9-14.2 [facility] Comment on above: Performed By: #### 2 [id number] #### [facility] [address] [place] [address] Hematocrit (Bld) [Volume fraction] 41.7 % Normal 34.0-46.0 [facility] Comment on above: Performed By: #### 2 759165 #### [facility] [address] [place] [address] Hemoglobin (Bld) [Mass/Vol] 14.3 g/dL Normal 12.0-16.0 [facility] Comment on above: Performed By: #### 2 [id number] #### [facility] [address] [place] [address] Lymphocytes (Bld) [#/Vol] 2.2 E9/L Normal 1.0-4.0 [facility] Comment on above: Performed By: #### 2 [id number] #### [facility] [address] [place] [address] Lymphocytes/100 WBC (Bld) 16.6 % Normal 14.0-50.0 [facility] Comment on above: Performed By: #### 2 [id number] #### [facility] [address] [place] [address] MCH (RBC) [Entitic mass] 30.3 pg Normal 27.0-34.0 [facility] Comment on above: Performed By: #### 2 548149 #### [facility] [address] [place] [address] MCHC (RBC) [Mass/Vol] 34.3 g/dL Normal 31.4-36.0 [facility] Comment on above: Performed By: #### 2 [id number] #### [facility] [address] [place] [address] MCV (RBC) [Entitic vol] 88.3 fL Normal 80.0-100.0 [facility] Comment on above: Performed By: #### 2 [id number] #### [facility] [address] [place] [address] Monocytes (Bld) [#/Vol] 0.8 E9/L Normal 0.2-1.0 [facility] Comment on above: Performed By: #### 2 632245 #### [facility] [address] [place] [address] Neutrophils (Bld) [#/Vol] 10.3 E9/L High 2.0-7.5 [facility] Comment on above: Performed By: #### 2 [id number] #### [facility] [address] [place] [address] Neutrophils/100 WBC (Bld) 76.3 % High 36.0-75.0 [facility] Comment on above: Performed By: #### 2 [id number] #### [facility] [address] [place] [address] Platelet mean volume (Bld) [Entitic vol] 8.4 fL Normal 6.4-10.8 [facility] Comment on above: Performed By: #### 2 [id number] #### [facility] [address] [place] [address] Platelets (Bld) [#/Vol] 229.0 E9/L Normal 150.0-500.0 [facility] Comment on above: Performed By: #### 2 [id number] #### [facility] [address] [place] [address] RBC (Bld) [#/Vol] 4.7 E12/L Normal 4.3-5.9 [facility] Comment on above: Performed By: #### 2 [id number] #### [facility] [address] [place] [address] WBC corrected for nucl RBC Auto (Bld) [#/Vol] 13.5 E9/L High 4.0-11.0 [facility] Comment on above: Performed By: #### 2 712686 #### [facility] [address] [place] [address] CHEMISTRYOrdered By: SYSTEM SYSTEM on 05-02-2024 Albumin [...] 2023 ED Clinical Summary ED Clinical Summary [place] [id number] ED Clinical Summary Person Information Name: JACK REA [facility] Age: 29 Years : 1995 Sex: Female Language: Greek PCP: SHAWNA HEALY CNP Marital Status: Visit [...] 05/02/2024 23:15:42 05/02/2024 23:15:42 05/02/2024 23:15:42 ADDRESS: [address] [facility] [id number] PHYS DOC NOTES: MEDICAL INFORMATION: Prescriptions Given: New Medications [id number], [address] [place], [place] [id number], [phone] acetaminophen-hydroc odone ([place] 325 mg-5 mg oral tablet) 1 Tablets [...] With: Address: When: Lev [address], [address], [address] [address] Business (1) In 3 days 05/05/2024 With: Address: When: SHAWNA HEALY [address] [place] [address] [place] [phone] Business (1) In 3 days 05/05/2024 DIAGNOSIS: Abdominal pain; Constipation; Nausea & vomiting; UTI (urinary tract infection) Normal [facility] ED Patient Summaryon 024 ED Patient Summary ED Patient Summary [address] [address] Patient Discharge Instructions Person Information Name: JACK REA Age: 29 Years Arrival Date: 05/02/2024 18:53:57 Discharge Diagnosis: Abdominal pain; Constipation; Nausea & vomiting; UTI (urinary tract infection) Primary Care Physician: SHAWNA HEALY CNP Provider Information Primary Provider: Jesica Mccabe DO Advanced Manager Of Production:Connor Zimmerman PA-C The exam and treatment you received in the Emergency Department were for an urgent problem and are not intended as complete care. It is important that you follow up with a doctor, nurse practitioner, or physician???s temporary office assistant for ongoing care. If your symptoms [...] Follow-up Instructions: With: Address: When: Lev Wilson [facility], [address], [address] [address] [employer] (1) In 3 days 05/05/2024 With: Address: When: SHAWNA HEALY [employer] [facility] [place] [address] [place] [phone] [employer] (1) In 3 days 05/05/2024 In the event that this physician does not participate in your insurance network, please consult with your insurance company to find a nearby participating provider. Patient Education Materials: Abdominal Pain, Adult; Urinary Tract Infection, Adult A MESSAGE TO ALL PATIENTS REGARDING OPIOIDS PRESCRIPTION OPIOIDS: WHAT YOU NEED TO KNOW Prescription opioids can be used to help relieve dtmehlis-nz-wnzhhd pain and are often prescribed following a [...] and Drug A (more content not included)... Normal [facility] Extra Blueon 05-02-2024 Tube Collected Plasma Yes Invalid Interpretation Code [facility] Comment on above: Performed By: #### 1 [id number] #### [facility] [address] [place] [address] HEMATOLOGYOrdered By: SYSTEM SYSTEM on 05-02-2024 Basophils/100 [...] 05-02-2024 Albumin [Mass/Vol] 4.4 g/dL Normal 3.3-5.0 [facility] Comment on above: Performed By: #### 2 [id number] #### [facility] [address] [place] [address] Albumin/Globulin (S) [Mass conc ratio] 1.8 Normal 1.1-2.2 [facility] Comment on above: Performed By: #### 2 [id number] #### [facility] [address] [place] [address] ALP [Catalytic activity/Vol] 75 Int._Unit/L Normal 21-98 [facility] Comment on above: Performed By: #### 2 [id number] #### [facility] [address] [place] [address] ALT No additional P-5'-P [Catalytic activity/Vol] 12 Int._Unit/L Normal 6-46 [facility] Comment on above: Performed By: #### 2 [id number] #### [facility] [address] [place] [address] AST [Catalytic activity/Vol] 13 Int._Unit/L Normal 5-43 [facility] Comment on above: Performed By: #### 2 [id number] #### [facility] [address] [place] [address] Bilirubin [Mass/Vol] 0.5 mg/dL Normal 0.0-1.1 [facility] Comment on above: Performed By: #### 2 [id number] #### [facility] [address] [place] [address] Bilirubin.direct [Mass/Vol] 0.1 mg/dL Normal 0.0-0.4 [facility] Comment on above: Performed By: #### 2 [id number] #### [facility] [address] [place] [address] Bilirubin.indirect [Mass or moles/Vol] 0.4 mg/dL Normal 0.1-0.9 [facility] Comment on above: Performed By: #### 2 [id number] #### [facility] [address] [place] [address] Globulin (S) [Mass/Vol] 2.4 g/dL Normal 1.4-4.0 [facility] Comment on above: Performed By: #### 2 624896 #### [facility] [address] [place] [address] Protein [Mass/Vol] 6.8 g/dL Normal 6.0-7.8 [facility] Comment on above: Performed By: #### 2 [id number] #### [facility] [address] [place] [address] Lipase Levelon 05-02-2024 Lipase [Catalytic activity/Vol] 27 U/L Normal 13-58 [facility] Comment on above: Performed By: #### 2 668171 #### [facility] [address] [place] [address] SEROLOGYOrdered By: Melanie Wilson on 05-02-2024 HCG.beta subunit (U) [Moles/Vol] Negative Normal [facility] Man Sero U BetaHcg Qualon 05-02-2024 HCG.beta subunit (U) [Moles/Vol] Negative Normal [facility] Comment on above: Performed By: #### 2 [id number] #### [facility] [address] [place] [address] UA with Cult Rflxon 05-02-20 24 Bacteria Auto Ql (U) Trace Normal Trace Fish er [facility] Comment on above: Performed By: #### 4 [id number] #### [facility] [address] [place] [address] Bilirubin Ql (U) Negative Normal Negative [facility] Comment on above: Performed By: #### 4 [id number] #### [facility] [address] [place] [address] Clarity (U) Clear Normal Clear [facility] Comment on above: Performed By: #### 4 [id number] #### [facility] [address] [place] [address] Color (U) Colorless Abnormal Yellow [facility] Comment on above: Result Comment: Micr oscopic readings are only performed on those samples that meet specific criteria set forth by [facility]. Performed By: #### 4 [id number] #### [facility] [address] [place] [address] Glucose Ql (U) Negative Normal Negative [facility] Comment on above: Performed By: #### 4 [id number] #### [facility] [address] [place] [address] Hemoglobin Auto test strip (U) [Mass/Vol] 3+ mg/dL Abnormal Negative [facility] Comment on above: Performed By: #### 4 [id number] #### [facility] [address] [place] [address] Ketones Auto test strip Ql (U) Negative Normal Negative [facility] Comment on above: Performed By: #### 4 [id number] #### [facility] [address] [place] [address] Leukocyte esterase Auto test strip Ql (U) 75 Mavis/uL Abnormal Negative [facility] Comment on above: Performed By: #### 4 [id number] #### [facility] [address] [place] [address] Mucus Auto Ql (U) Negative Normal Negative [facility] Comment on above: Performed By: #### 4 [id number] #### [facility] [address] [place] [address] Nitrite Auto test strip Ql (U) Negative Normal Negative [facility] Comment on above: Performed By: #### 4 [id number] #### [facility] [address] [place] [address] pH (U) 6.5 [pH] Invalid Interpretation Code 5.0-9.0 [facility] Comment on above: Performed By: #### 4 [id number] #### [facility] [address] [place] [address] Protein Ql (U) Negative Normal Negative [facility] Comment on above: Performed By: #### 4 [id number] #### [facility] [address] [place] [address] RBC Ql (U) 4-20 Abnormal 0-3 [facility] [facility] Comment on above: Performed By: #### 4 [id number] #### [facility] [address] [place] [address] Specific gravity (U) [Rel density] 1.003 Invalid Interpretation Code 1.005-1.030 [facility] Comment on above: Performed By: #### 4 [id number] #### [facility] [address] [place] [address] Urobilinogen (U) [Mass/Vol] Negative Normal Negative [facility] Comment on above: Performed By: #### 4 [id number] #### [facility] [address] [place] [address] WBC Auto (Urine sed) [#/Area] 31-75 Abnormal 0-5 [facility] Comment on above: Performed By: #### 4 [id number] #### [facility] [address] [place] [address] Type of Urine collection method Clean Catch Normal [facility] Comment on above: Performed By: #### 4 [id number] #### [facility] [address] [place] [address] URINALYSISOrdered By: SYSTEM SYSTEM on 05-02-2024 Bacteria [...] that meet specific criteria set forth by [facility]. Glucose Ql (U) Negative Normal Negativemg/d [...] PM) Invalid Interpretation Code 1.005 - 1.030 [facility] UA Auto SS Urobilinogen (U) [Mass/Vol] Negative Normal Negativemg/d L [facility] UA Auto SS WBC Auto (Urine sed) [#/Area] 31-75 graded/HPF Invalid Interpretation Code 0-5graded/HP F [facility] UA Auto SS URINALYSISOrdered By: Karina Kruger on 05-02-2024 UA Spec Desc Clean Catch (05/02/24 7:06 PM) Normal [facility] UA Auto SS eGFRon 05-02-2024 eGFR 119 mL/min/1.73 m2 Normal >=59 [facility] Comment on above: Performed By: #### 1 [id number] #### [facility] [address] [place] [address] Laboratory - Chemistry and C hemistry - challengeon 05-01-2024 Bilirubin Ql (U) Negative Negative [facility] Glucose [Mass/Vol] Negative Negative [facility] Ketones Ql (U) Negative Negative [facility] pH (U) 6 [pH] 5.0 - 6.0 [facility] Specific gravity (U) [Rel density] 1.02 1.001 - 1.035 [facility] Urobilinogen (U) [Mass/Vol] Negative 0.2 - 1.0 [facility] Laboratory - Hematology and Cell countson 05-01-2024 Hemoglobin Ql (U) Negative Negative [facility] Laboratory - Urinalysison Nitrite Ql (U) Negative Negative [facility] Protein Ql (U) Negative Negative [facility] No Panel Informationon 05-01 Interpretation and review of laboratory results Normal [facility] LEUKOCYTES Negative Negative [facility] CARMEN w/Reflex if POSon 2023 Nuclear Ab Ql (S) Negative Invalid Interpretation Code Negative [facility] Comment on above: Result Comment: Perf ormed at: [facility] [address] [id number] PhD Fadumo Peraza Performed By: #### 1 [id number] #### [facility] [address] [place] [address] Lyme Abs rfxon 04-23-2024 B. burgdorferi IgG+IgM IA Ql (S) Negative Invalid Interpretation Code Negative [facility] Comment on above: Result Comment: Lyme antibodies not detected. Reflex testing is not indicated. No laboratory evidence of infection with B. burgdorferi (Lyme disease). Negative results may occur in patients recently infected (less than or equal to 14 days) with B. burgdorferi. If recent infection is suspected, repeat testing on a new sample collected in 7 to 14 days is recommended. Performed at: [facility] [address] [id number] PhD Fadumo Peraza Performed By: #### 4 [id number] #### [facility] [address] [place] [address] RF Quanton 04-23-2024 Rheumatoid factor Qn [IU]/mL Invalid Interpretation Code <14.0 [facility] Comment on above: Result Comment: Perf ormed at: [facility] [address] [id number] PhD Fadumo Peraza Performed By: #### 1 [id number] #### [facility] [address] [place] [address] Borrelia burgdorferi IgG+IgM Ab [Presence] in Serum by Immunoassayon 04-21-2024 B. burgdorferi IgG+IgM IA Ql (S) Negative Negative [facility] B. burgdorferi IgG+IgM IA Ql (S) Borrelia burgdorferi IgG+IgM Ab [Presence] in Serum by Immunoassay Negative [facility] CHEMISTRYOrdered By: SYSTEM SYSTEM on 04-21-2024 CRP [Mass/Vol] 0.6 mg/dL Normal <=1.9mg/dL Remisol Ch em Iron [Mass/Vol] 99 ug/dL Normal 35 - 153 mcg/dL Remisol Chem Iron binding capacity [Mass/Vol] 382 ug/dL Normal 250 - 400 mcg/dL Remisol Chem CRPon 04-21-2024 CRP [Mass/Vol] 0.6 mg/dL Normal <=1.9 [facility] Comment on above: Performed By: #### 2 [id number] #### [facility] [address] [place] [address] Ironon 04-21-2024 Iron [Mass/Vol] 99 microgram/dL Normal 35-153 [facility] Comment on above: Performed By: #### 2 [id number] #### [facility] [address] [place] [address] Iron binding capacity [Mass/ volume] in Serum or Plasmaon 04-21-2024 Iron binding capacity [Mass/Vol] 382 microgram/dL 250-400 [facility] Iron binding capacity [Mass/Vol] Iron binding capacity [Mass/volume] in Serum or Plasma 250-400 [facility] Laboratory - Chemistry and C hemistry - challengeOrdered By: SYSTEM SYSTEM on 04-21-2024 Transferrin [Mass/Vol] 273 mg/dL 200-370 [facility] Laboratory - Hematology and Cell countsOrdered By: Martina Zamarripa on 04-21-2024 ESR (Bld) [Velocity] 10 mm/h 0-34 [facility] HemeAutoSS No Panel Informationon 04-21 C-Reactive Protein, Quantitative 0.6 mg/dL <=1.9 [facility] Iron Level 99 microgram/dL 35-153 [facility] Sed Rate Automatedon 024 ESR (Bld) [Velocity] 10 mm/h Normal 0-34 [facility] Comment on above: Performed By: #### 1 [id number] #### [facility] [address] [place] [address] Serum or plasma free cefurox niurka measurement (mass/volume)on 04-21-2024 Cefuroxime free [Mass/Vol] Negative Negative [facility] Cefuroxime free [Mass/Vol] Serum or plasma free cefuroxime measurement (mass/volume) Negative [facility] Serum or plasma rheumatoid f actor measurement (units/volume)on 04-21-2024 Rheumatoid factor Qn <10.0 International_Unit/m L <14.0 [facility] Rheumatoid factor Qn Serum or plasma rheumatoid factor measurement (units/volume) <14.0 [facility] TIBC Calculatedon 04-21-2024 Iron binding capacity [Mass/Vol] 382 microgram/dL Normal 250-400 [facility] Comment on above: Performed By: #### 1 [id number] #### [facility] [address] [place] [address] Transferrin [Mass/Vol] 273 mg/dL Normal 200-370 [facility] Comment on above: Performed By: #### 1 [id number] #### [facility] [address] [place] [address] Ambulatory Visit Summaryon 1 Ambulatory Visit Summary [...] abdominal pain Nausea and vomiting Pickup at [facility] #[id number] New tenapanor (Ibsrela 50 mg oral tablet) 1 Tablets By Mouth 2 times a day Irritable bowel syndrome with constipation Bloating Generalized abdominal pain Nausea and vomiting Refills: 4 Pickup at [facility] #[id number] Pharmacy Information [facility] #[id number]: [address] [place], [place] [id number] [phone] Allergies Augmentin Bactrim Septra (hives, vomiting) Problems [...] for choosing us for your care. Normal [facility] Gastro[facility]ology Office/Clin ic Noteon 04-05-2024 [...] TID, # 90 tab(s), Refills(s) 0, Pharmacy: [facility] #[id number], 160, cm, 04/05/24 9:37:00 EDT, Height/Length Dosing, 83.7, kg, 04/05/24 9:37:00 EDT, Weight Dosing tenapanor, 50 mg = 1 tab(s), Oral, BID, # 30 tab(s), Refills(s) 4, Pharmacy: [facility] #[id number], 160, cm, 04/05/24 9:37:00 EDT, Height/Length Dosing, 83.7, kg, 04/05/24 9:37:00 EDT, Weight Dosing 2. Bloating (R14.0: Abdominal distension (gaseous)) Ordered: busPIRone, 5 mg = 1 tab(s), Oral, TID, # 90 tab(s), Refills(s) 0, Pharmacy: [facility] #[id number], 160, cm, 04/05/24 9:37:00 EDT, Height/Length Dosing, 83.7, kg, 04/05/24 9:37:00 EDT, Weight Dosing tenapanor, 50 mg = 1 tab(s), Oral, BID, # 30 tab(s), Refills(s) 4, Pharmacy: [facility] #[id number], 160, cm, 04/05/24 9:37:00 EDT, Height/Length Dosing, 83.7, kg, 04/05/24 9:37:00 EDT, Weight Dosing 3. Generalized abdominal pain (R10.84: Generalized abdominal pain) Ordered: busPIRone, 5 mg = 1 tab(s), Oral, TID, # 90 tab(s), Refills(s) 0, Pharmacy: [facility] #[id number], 160, cm, 04/05/24 9:37:00 EDT, Height/Length Dosing, 83.7, kg, 04/05/24 9:37:00 EDT, Weight Dosing tenapanor, 50 mg = 1 tab(s), Oral, BID, # 30 tab(s), Refills(s) 4, Pharmacy: [facility] #[id number], 160, cm, 04/05/24 9:37:00 EDT, Height/Length Dosing, 83.7, kg, 04/05/24 9:37:00 EDT, Weight Dosing 4. Nausea and vomiting (R11.2: Nausea with vomiting, unspecified) Ordered: busPIRone, 5 mg = 1 tab(s), Oral, TID, # 90 tab(s), Refills(s) 0, Pharmacy: [facility] #[id number], 160, cm, 04/05/24 9:37:00 EDT, Height/Length Dosing, 83.7, kg, 04/05/24 9:37:00 EDT, Weight Dosing linaclotide, 145 mcg = 1 cap(s), Oral, Daily, # 30 cap(s), Refills(s) 5, [facility]acy: [facility] #[id number], 160, cm, 01/10/24 13:34:00 EDT, Height/Length Dosing, 85, kg, 01/10/24 13:34:00 EDT, Weight Dosing tenapanor, 50 mg = 1 tab(s), (more content not included)... Normal [facility] Comment on above: Result Comment: Elec tronically Signed By: Oralia BURKS, Juliana Britt.br\Date and Time Signed: 04/05/24 09:54 EDT Alanine aminotransferase [En zymatic activity/volume] in Serum or PlasmaOrdered By: Shawna Healy on 03-26-2024 ALT [Catalytic activity/Vol] 18 U/L Normal [facility] Comment on above: Performed By: #### F E PRO, CMP wRFX A1C #### [facility] [address] ALT [Catalytic activity/Vol] Alanine aminotransferase [Enzymatic activity/volume] in Serum or Plasma [facility] Albumin [Mass/volume] in Ser um or Plasma by Bromocresol green (BCG) dye binding methoOrdered By: Shawna Healy on 03-26-2024 Albumin BCG dye [Mass/Vol] 4.6 g/dL 3.5-5.7 [facility] Albumin BCG dye [Mass/Vol] Albumin [Mass/volume] in Serum or Plasma by Bromocresol green (BCG) dye binding metho 3.5-5.7 [facility] Alkaline phosphatase [Enzyma tic activity/volume] in Serum or PlasmaOrdered By: Shawna Healy on 03-26-2024 ALP [Catalytic activity/Vol] 68 U/L Normal [facility] Comment on above: Performed By: #### F E PRODULCE wRFX A1C #### [facility] [address] [place], [place] [id number] [facility] ALP [Catalytic activity/Vol] Alkaline phosphatase [Enzymatic activity/volume] in Serum or Plasma [facility] Appearance of UrineOrdered B y: Shawna Healy on 03-26-2024 Appearance (U) Urine appearance Clear [facility] Aspartate aminotransferase [ Enzymatic activity/volume] in Serum or PlasmaOrdered By: Shawna Healy on 03-26-2024 AST [Catalytic activity/Vol] 17 U/L Normal [facility] Comment on above: Performed By: #### F E PRO, CMP wRFX A1C #### [facility] [address] [place], [place] [id number] [place] AST [Catalytic activity/Vol] Aspartate aminotransferase [Enzymatic activity/volume] in Serum or Plasma [facility] Bilirubin Test strip Ql (U)O rdered By: Shawna Haely on 03-26-2024 Bilirubin Ql (U) Negative Negative [facility] Bilirubin Ql (U) Bilirubin.total [Presence] in Urine by Test strip Negative [facility] Bilirubin.total [Mass/volume ] in Serum or PlasmaOrdered By: Shawna Healy on 03-26-2024 Bilirubin [Mass/Vol] 0.6 mg/dL Normal 0.3-1.0 [facility] Comment on above: Performed By: #### F E PRO, CMP wRFX A1C #### [facility] [address] [place] [id number] [place] Bilirubin [Mass/Vol] Bilirubin.total [Mass/volume] in Serum or Plasma 0.3-1.0 [facility] CMP with reflex to A1Con Albumin [Mass/Vol] 4.6 g/dL Normal 3.5-5.7 [facility] Comment on above: Performed By: #### F E PRO, CMP wRFX A1C #### [facility] [address] [place] [id number] [place] GFR/1.73 sq M.predicted MDRD (S/P/Bld) [Vol rate/Area] mL/min/{1.73_m2} Normal [facility] Comment on above: Performed By: #### F E PRO, CMP wRFX A1C #### [facility] [address] [place] [id number] [place] Calcium [Mass/volume] in Ser um or PlasmaOrdered By: Shawna Healy on 03-26-2024 Calcium [Mass/Vol] 9.6 mg/dL Normal 8.6-10.3 [facility] Comment on above: Performed By: #### F E PRO, CMP wRFX A1C #### [facility] [address] [place] [id number] [place] Calcium [Mass/Vol] Calcium [Mass/volume] in Serum or Plasma 8.6-10.3 [facility] Carbon dioxide, total [Moles /volume] in Serum or PlasmaOrdered By: Shawna Healy on 03-26-2024 CO2 [Moles/Vol] 28.9 mmol/L Normal 21.0-31.0 [facility] Comment on above: Performed By: #### F E PRO, CMP wRFX A1C #### [facility] [address] [place] [address] [place] CO2 [Moles/Vol] Carbon dioxide, total [Moles/volume] in Serum or Plasma 21.0-31.0 [facility] Chloride [Moles/volume] in S narendra or PlasmaOrdered By: Shawna Healy on 03-26-2024 Chloride [Moles/Vol] 106 mmol/L Normal 98-107 [facility] Comment on above: Performed By: #### F E PRO, CMP wRFX A1C #### [facility] [address] [place] [address] [place] Chloride [Moles/Vol] Chloride [Moles/volume] in Serum or Plasma 98-107 [facility] Color Auto (U)Ordered By: Yosef Healy on 03-26-2024 Color (U) Color of Urine by Auto Yellow [facility] Color of Urine by AutoOrdere d By: Shawna Healy on 03-26-2024 Color (U) Colorless Normal [facility] Comment on above: Order Comment: Name Collection Type:: Clean-Voided Midstream Performed By: #### F E PRO, CMP wRFX A1C #### [facility] [address] [place] [id number] [place] Creatinine [Mass/volume] in Serum or PlasmaOrdered By: Shawna Healy on 03-26-2024 Creatinine [Mass/Vol] 0.72 mg/dL Normal 0.60-1.20 [facility] Comment on above: Performed By: #### F E PRO, CMP wRFX A1C #### [facility] [address] [place] [id number] [place] Creatinine [Mass/Vol] Creatinine [Mass/volume] in Serum or Plasma 0.60-1.20 [facility] FE PROon 03-26-2024 % Iron Saturation 24.5 % Normal 20-50 [facility] Comment on above: Performed By: #### F E PRO, CMP wRFX A1C #### [facility] [address] Total Iron Binding Capacity 417 ug/dL Normal 255-450 [facility] Comment on above: Performed By: #### F E PRO, CMP wRFX A1C #### [facility] [address] [place] [id number] [place] Ferritin [Mass/volume] in Se rum or PlasmaOrdered By: Shawna Healy on 03-26-2024 Ferritin [Mass/Vol] 37.2 ng/mL Normal 11.0-306.8 [facility] Comment on above: Result Comment: PERF ORMED BY: [place] [address] PATHOLOGIST [employer] LEONARDO LARA M.D. Performed By: #### F E PRO, CMP wRFX A1C #### [facility] [address] [place] [id number] [place] Ferritin [Mass/Vol] Ferritin [Mass/volume] in Serum or Plasma 11.0-306.8 [facility] Globulin Calc (S) [Mass/Vol] Ordered By: Shawna Healy on 03-26-2024 Globulin (S) [Mass/Vol] Serum globulin measurement by calculation (mass/volume) [facility] Glucose [Mass/volume] in Ser um or PlasmaOrdered By: Shwana Healy on 03-26-2024 Glucose [Mass/Vol] 93 mg/dL Normal 70-100 [facility] Comment on above: Performed By: #### F E PRO, CMP wRFX A1C #### [facility] [address] [place] [id number] [place] Glucose [Mass/Vol] Glucose [Mass/volume] in Serum or Plasma 70-100 [facility] Glucose [Mass/volume] in Uri ne by Test stripOrdered By: Shawna Healy on 03-26-2024 Glucose Test strip (U) [Mass/Vol] Normal mg/dL Normal [facility] Glucose Test strip (U) [Mass/Vol] Glucose [Mass/volume] in Urine by Test strip Normal [facility] Hemoglobin Test strip Ql (U) Ordered By: Shawna Healy on 03-26-2024 Hemoglobin Ql (U) Negative Negative [facility] Hemoglobin Ql (U) Hemoglobin [Presence] in Urine by Test strip Negative [facility] Iron [Mass/volume] in Serum or PlasmaOrdered By: Shawna Healy on 03-26-2024 Iron [Mass/Vol] 102 ug/dL Normal 50-212 [facility] Comment on above: Performed By: #### F E PRO, CMP wRFX A1C #### [facility] [address] Iron [Mass/Vol] Iron [Mass/volume] in Serum or Plasma 50-212 [facility] Iron binding capacity [Mass/ volume] in Serum or PlasmaOrdered By: Shawna Healy on 03-26-2024 Iron binding capacity [Mass/Vol] 417 ug/dL 255-450 [facility] Iron saturation [Mass Fracti on] in Serum or PlasmaOrdered By: Shawna Healy on 03-26-2024 Iron saturation [Mass fraction] 24.5 % 20-50 [facility] Ketones Test strip Ql (U)Ord ered By: Shawna Healy on 03-26-2024 Ketones Ql (U) Ketones [Presence] in Urine by Test strip Negative [facility] Ketones [Presence] in Urine by Test stripOrdered By: Shawna Healy on 03-26-2024 Ketones Ql (U) Negative Normal Negative [facility] Comment on above: Order Comment: Name Collection Type:: Clean-Voided Midstream Performed By: #### F E PRO, CMP wRFX A1C #### [facility] [address] Laboratory - Microbiology an d Antimicrobial susceptibilityOrdered By: Shawna Healy on 03-26-2024 Bacteria identified Cx Nom (U) 2 Days [facility] Bacteria identified Cx Nom (U) 2 Days [facility] Leukocyte esterase [Presence ] in Urine by Test stripOrdered By: Shawna Healy on 03-26-2024 Leukocyte esterase Test strip Ql (U) Negative Normal Negative [facility] Comment on above: Order Comment: Name Collection Type:: Clean-Voided Midstream Performed By: #### F E PRO, CMP wRFX A1C #### [facility] [address] [place] [address] [place] Leukocyte esterase Test strip Ql (U) Leukocyte esterase [Presence] in Urine by Test strip Negative [facility] Nitrite Test strip Ql (U)Ord ered By: Shawna Healy on 03-26-2024 Nitrite Ql (U) Negative Negative [facility] Nitrite Ql (U) Nitrite [Presence] in Urine by Test strip Negative [facility] No Panel InformationOrdered By: Shawna Healy on 03-26-2024 Estimated GFR (CKD-EPI) > 60.0 mL/Min [facility] Creatinine Clearance (Chem N/A [facility] Potassium [Moles/volume] in Serum or PlasmaOrdered By: Shawna Healy on 03-26-2024 Potassium [Moles/Vol] 4.3 mmol/L Normal 3.5-5.1 [facility] Comment on above: Performed By: #### F E PRO, CMP wRFX A1C #### [facility] [address] [place] [address] [place] Potassium [Moles/Vol] Potassium [Moles/volume] in Serum or Plasma 3.5-5.1 [facility] Protein Test strip (U) [Mass /Vol]Ordered By: Shawna Healy on 03-26-2024 Protein (U) [Mass/Vol] Negative Negative [facility] Protein (U) [Mass/Vol] Protein [Mass/volume] in Urine by Test strip Negative [facility] Protein [Mass/volume] in Ser um or PlasmaOrdered By: Shawna Healy on 03-26-2024 Protein [Mass/Vol] 6.4 g/dL Normal 6.4-8.9 [facility] Comment on above: Performed By: #### F E PRO, CMP wRFX A1C #### [facility] [address] [place] [address] [place] Protein [Mass/Vol] Protein [Mass/volume] in Serum or Plasma 6.4-8.9 [facility] Serum globulin measurement b y calculation (mass/volume)Ordered By: Shawna Healy on 03-26-2024 Globulin (S) [Mass/Vol] 1.8 g/dL Normal [facility] Comment on above: Performed By: #### F E PRO, CMP wRFX A1C #### [facility] [address] Serum or plasma albumin/glob ulin mass ratioOrdered By: Shawna Healy on 03-26-2024 Albumin/Globulin [Mass ratio] 2.6 {ratio} Normal [facility] Comment on above: Performed By: #### F E PRO, CMP wRFX A1C #### [facility] [address] Albumin/Globulin [Mass ratio] Serum or plasma albumin/globulin mass ratio [facility] Serum or plasma anion gap de terminationOrdered By: Shawna Healy on 03-26-2024 Anion gap [Moles/Vol] 10.4 mmol/L Normal 6.0-15.[address] [facility] Comment on above: Performed By: #### F E PRO, CMP wRFX A1C #### [facility] [address] Anion gap [Moles/Vol] Serum or plasma anion gap determination 6.0-15.0 [facility] Serum or plasma iron binding capacity measurement (mass/volume)Ordered By: Shawna Healy on 03-26-2024 Iron binding capacity [Mass/Vol] Iron binding capacity [Mass/volume] in Serum or Plasma 255-450 [facility] Serum or plasma iron saturat ion measurement (mass fraction)Ordered By: Shawna Healy on 03-26-2024 Iron saturation [Mass fraction] Iron saturation [Mass Fraction] in Serum or Plasma 20-50 [facility] Sodium [Moles/volume] in Ser um or PlasmaOrdered By: Shawna Healy on 03-26-2024 Sodium [Moles/Vol] 141 mmol/L Normal 136-145 [facility] Comment on above: Performed By: #### F E PRO, CMP wRFX A1C #### [facility] [address] Sodium [Moles/Vol] Sodium [Moles/volume] in Serum or Plasma 136-145 [facility] Specific gravity Test strip (U) [Rel density]Ordered By: Shawna Healy on 03-26-2024 Specific gravity (U) [Rel density] 1.001 1.001-1.030 [facility] Specific gravity (U) [Rel density] Specific gravity of Urine by Test strip 1.001-1.030 [facility] Transferrin [Mass/volume] in Serum or PlasmaOrdered By: Shawna Healy on 03-26-2024 Transferrin [Mass/Vol] 298 mg/dL Normal 203-[address] [facility] Comment on above: Performed By: #### F E PRO, CMP wRFX A1C #### [place] [id number] [facility] Transferrin [Mass/Vol] Transferrin [Mass/volume] in Serum or Plasma 203-362 [facility] US renal BIon 03-26-2024 US renal BI [facility] Main [place] [address] [place] [address] Ultrasound Report Signed Patient: Jack Rea MR#: [id number] 53 : 1995 Acct:[id number] Age/Sex: 29 / F ADM Date: 03/26/24 Loc: Room: Type: [facility] Attending Dr: Shawna Healy APRN Ordering Provider: [...] Justice Jr., D.O.03/26/2024 11:09 AM Dictation Location: [place] [address] Tech: Hilary Rodriguez Transcribed By: LISA 03/26/24 110 Dictated By: Misael Justice Jr, DO 03/26/24 1109 Signed By: 03/26/24 1109 Normal [facility] Urea nitrogen [Mass/volume] in Serum or PlasmaOrdered By: Shawna Healy on 03-26-2024 Urea nitrogen [Mass/Vol] 5 mg/dL Low 01-25 [facility] Comment on above: Performed By: #### F E PRO, CMP wRFX A1C #### [facility] [address] Urea nitrogen [Mass/Vol] Urea nitrogen [Mass/volume] in Serum or Plasma [facility] 01-25 [facility] Urinalysison 03-26-2024 Bilirubin,Urine Negative Normal Negative [facility] Comment on above: Order Comment: Name Collection Type:: Clean-Voided Midstream Performed By: #### F E PRO, CMP wRFX A1C #### [facility] [address] [place] [address] [place] Glucose Ql (U) Normal Normal Normal [facility] Comment on above: Order Comment: Name Collection Type:: Clean-Voided Midstream Performed By: #### F E PRO, CMP wRFX A1C #### [facility] [address] [place] [address] [place] Nitrite,Urine Negative Normal Negative [facility] Comment on above: Order Comment: Name Collection Type:: Clean-Voided Midstream Performed By: #### F E PRO, CMP wRFX A1C #### [facility] [address] [place] [id number] [place] Occult Blood,Urine Negative Normal Negative [facility] Comment on above: Order Comment: Name Collection Type:: Clean-Voided Midstream Result Comment: PERF ORMED BY: [place] [address] PATHOLOGIST [employer] LEONARDO LARA M.D. Performed By: #### F E PRO, CMP wRFX A1C #### [address] Protein,Urine Negative Normal Negative [facility] Comment on above: Order Comment: Name Collection Type:: Clean-Voided Midstream Performed By: #### F E PRO, CMP wRFX A1C #### [address] Specificy [place],Urine 1.001 Normal 1.001-1.030 [facility] Comment on above: Order Comment: Name Collection Type:: Clean-Voided Midstream Performed By: #### F E PRO, CMP wRFX A1C #### [address] Urobilinogen,Urine Normal Normal Normal [facility] Comment on above: Order Comment: Name Collection Type:: Clean-Voided Midstream Performed By: #### F E PRO, CMP wRFX A1C #### [place] [address] [place] Urine Cultureon 03-26-2024 Bacteria identified Cx Nom (U) <9,000 colonies/ml mixed bacterial skin contaminants 2 Days PERFORMED BY: [place] [address] PATHOLOGIST FREE LANCE MODEL LEONARDO LARA M.D. Normal [facility] Comment on above: Performed By: #### F E PRO, CMP wRFX A1C #### [address] Urine appearanceOrdered By: Shawna Healy on 03-26-2024 Appearance (U) Clear Normal Clear [facility] Comment on above: Order Comment: Name Collection Type:: Clean-Voided Midstream Performed By: #### F E PRO, CMP wRFX A1C #### [address] Urine cultureOrdered By: Demond Healy on 03-26-2024 Bacteria identified Cx Nom (U) Urine culture [facility] Urobilinogen Test strip (U) [Mass/Vol]Ordered By: Shawna Healy on 03-26-2024 Urobilinogen (U) [Mass/Vol] Normal mg/dL Normal [facility] Urobilinogen (U) [Mass/Vol] Urobilinogen [Mass/volume] in Urine by Test strip Normal [facility] pH Test strip (U)Ordered By: Shawna Healy on 03-26-2024 pH (U) pH of Urine by Test strip 5.0-9.0 [facility] pH of Urine by Test stripOrd ered By: Shawna Healy on 03-26-2024 pH (U) 7.0 [pH] Normal 5.0-9.0 [facility] Comment on above: Order Comment: Name Collection Type:: Clean-Voided Midstream Performed By: #### F E PRO, CMP wRFX A1C #### [facility] [address] Abdomen/Pelvis w/ Contras ton 03-21-2024 [...] 300 Contrast amount in ml's: 100 Normal [facility] ED Clinical Summaryon 2023 ED Clinical Summary ED Clinical Summary [place] [id number] ED Clinical Summary Person Information Name: JACK REA [facility] Age: 29 Years : 1995 Sex: Female Language: Greek PCP: SHAWNA HEALY CNP Marital Status: Phone: [phone] Visit Id: Visit Reason: Weakness or fatigue; [...] 01:58:40 ADDRESS: [address] [facility] [id number] PHYS DOC NOTES: MEDICAL INFORMATION: Prescriptions Given: New Medications [id number], [address] [place] [id number], [phone] methocarbamol (Robaxin 500 mg Tab) 1 Tablets By Mouth 3 times a day for 3 Days. Refills: 0. oxybutynin (oxybutynin 5 mg Tab) 1 Tablets By Mouth 3 times a day as needed for urinary discomfort. Refills: 0. Medications to Continue Taking That Have Changed [facility] [employer] [facility], [address] [place], [place] [id number], [phone] START: naproxen (Naprosyn 500 mg Tab) 1 [...] Pain Without a Known Cause; Nausea, Adult, Vuif-no-Yqys; Dysuria Follow up: With: Address: When: Princess Baker In 3 days 03/24/2024 Comments: You can take the medications as prescribed as needed for pain. Please follow-up with your primary care doctor in the next 2 to 3 days for further evaluation and management. Please return to the ED for any new or worsening symptoms. With: Address: When: [facility] [address] [place] [phone] Business (1) In 3 days DIAGNOSIS: Bilateral back pain; Dysuria Normal [facility] ED Note-Physicianon 03-21-20 ED Note-Physician ED [...] and Complexity of Problems Differential Diagnosis: [] [facility] Data External documents reviewed: [] My [...] day(s), # 9 tab(s), Refills(s) 0, Pharmacy: [id number], 160, cm, 03/20/24 22:16:00 EDT, Height/Length Dosing, 85.2, kg, 03/20/24 22:16:00 EDT, Weight Dosing naproxen, 500 mg = 1 tab(s), Oral, BID, PRN for pain, # 20 tab(s), Refills(s) 0, Pharmacy: [facility] #[id number], 160, cm, 03/20/24 22:16:00 EDT, Height/Length Dosing, [...] discomfort, # 30 tab(s), Refills(s) 0, Pharmacy: [facility] #[id number], 160, cm, 03/20/24 22:16:00 EDT, Height/Length Dosing, [...] Push Dispo (more content not included)... Normal [facility] Comment on above: Result Comment: Elec tronically Signed By: Jesica Mccabe DO\.br\Date and Time Signed: 03/21/24 01:42 EDT ED Patient Summaryon 024 ED Patient Summary ED Patient Summary [place] [id number] Patient Discharge Instructions Person Information Name: JACK REA Age: 29 Years Arrival Date: 03/20/2024 22:05:10 Discharge Diagnosis: Bilateral back pain; Dysuria Primary Care Physician: SHAWNA HEALY CNP Provider Information Primary Provider: Jesica Mccabe DO Advanced Manager Of Production:None The exam and treatment you received in the Emergency Department were for an urgent problem and are not intended as complete care. It is important that you follow up with a doctor, nurse practitioner, or physician?s temporary office assistant for ongoing care. If your symptoms [...] any new or worsening symptoms. With: Address: Joss: SHAWNA HEALY [address] [facility] [place] [address] [phone] Business (1) In 3 days In the event that this physician does not participate in your insurance network, please consult with your insurance company to find a nearby participating provider. Patient Education Materials: Pain Without a Known Cause; Nausea, Adult, Udcr-cq-Holp; Dysuria A MESSAGE TO ALL PATIENTS REGARDING OPIOIDS PRESCRIPTION OPIOIDS: WHAT YOU NEED TO KNOW Prescription opioids can be used to help relieve jmkvlscq-wc-hyovch pain and are often prescribed following a [...] guidance from (more content not included)... Normal [facility] XR Chest Single Viewon 03-21 XR [...] mGy = na DAP = na Normal [facility] BMPon 03-20-2024 Anion gap [Moles/Vol] 9 mmol/L Normal 6-16 [facility] Comment on above: Performed By: #### 2 [id number] #### [facility] [address] [place] [address] Calcium [Mass/Vol] 9.4 mg/dL Normal 8.9-11.1 [facility] Comment on above: Performed By: #### 2 [id number] #### [facility] [address] [place] [address] Chloride [Moles/Vol] 107 mmol/L Normal 101-111 [facility] Comment on above: Performed By: #### 2 097222 #### [facility] [address] [place] [address] CO2 [Moles/Vol] 26 mmol/L Normal 21-31 [facility] Comment on above: Performed By: #### 2 [id number] #### [facility] [address] [place] [address] Creatinine [Mass/Vol] 0.7 mg/dL Normal 0.5-1.3 [facility] Comment on above: Performed By: #### 2 [id number] #### [facility] [address] [place] [address] Glucose [Mass/Vol] 95 mg/dL Normal 55-199 [facility] Comment on above: Performed By: #### 2 816170 #### [facility] [address] [place] [address] Potassium [Moles/Vol] 3.7 mmol/L Normal 3.5-5.3 [facility] Comment on above: Performed By: #### 2 532793 #### [facility] [address] [place] [address] Sodium [Moles/Vol] 138 mmol/L Normal 135-145 [facility] Comment on above: Performed By: #### 2 154555 #### [facility] [address] [place] [address] Urea nitrogen [Mass/Vol] 7 mg/dL Normal 5-21 [facility] Comment on above: Performed By: #### 2 [id number] #### [facility] [address] [place] [address] Urea nitrogen/Creatinine [Mass ratio] 10 No Units Normal 10-20 [facility] Comment on above: Performed By: #### 2 [id number] #### [facility] [address] [place] [address] CBC w/ Auto Diffon 4 Basophils/100 WBC (Bld) 2.1 % High 0.0-2.0 [facility] Comment on above: Performed By: #### 2 428805 #### [facility] [address] [place] [address] Basophils/Leukocytes Auto (Bld) [Pure # fraction] 0.3 E9/L High 0.0-0.2 [facility] Comment on above: Performed By: #### 2 652118 #### [facility] [address] [place] [address] Eosinophils (Bld) [#/Vol] 0.2 E9/L Normal 0.0-0.5 [facility] Comment on above: Performed By: #### 2 062882 #### [facility] [address] [place] [address] Eosinophils/100 WBC (Bld) 1.5 % Normal 0.0-8.0 [facility] Comment on above: Performed By: #### 2 633672 #### [facility] [address] [place] [address] Erythrocyte distribution width (RBC) [Ratio] 12.7 % Normal 10.9-14.2 [facility] Comment on above: Performed By: #### 2 038974 #### [facility] [address] [place] [address] Hematocrit (Bld) [Volume fraction] 42.1 % Normal 34.0-46.0 [facility] Comment on above: Performed By: #### 2 161900 #### [facility] [address] [place] [address] Hemoglobin (Bld) [Mass/Vol] 14.5 g/dL Normal 12.0-16.0 [facility] Comment on above: Performed By: #### 2 981231 #### [facility] [address] [place] [address] Lymphocytes (Bld) [#/Vol] 2.4 E9/L Normal 1.0-4.0 [facility] Comment on above: Performed By: #### 2 [id number] #### [facility] [address] [place] [address] Lymphocytes/100 WBC (Bld) 19.1 % Normal 14.0-50.0 [facility] Comment on above: Performed By: #### 2 374004 #### [facility] [address] [place] [address] MCH (RBC) [Entitic mass] 30.4 pg Normal 27.0-34.0 [facility] Comment on above: Performed By: #### 2 712259 #### [facility] [address] [place] [address] MCHC (RBC) [Mass/Vol] 34.4 g/dL Normal 31.4-36.0 [facility] Comment on above: Performed By: #### 2 825720 #### [facility] [address] [place] [address] MCV (RBC) [Entitic vol] 88.6 fL Normal 80.0-100.0 [facility] Comment on above: Performed By: #### 2 [id number] #### [facility] [address] [place] [address] Monocytes (Bld) [#/Vol] 0.9 E9/L Normal 0.2-1.0 [facility] Comment on above: Performed By: #### 2 809933 #### [facility] [address] [place] [address] Neutrophils (Bld) [#/Vol] 8.8 E9/L High 2.0-7.5 [facility] Comment on above: Performed By: #### 2 696172 #### [facility] [address] [place] [address] Neutrophils/100 WBC (Bld) 70.3 % Normal 36.0-75.0 [facility] Comment on above: Performed By: #### 2 759229 #### [facility] [address] [place] [address] Platelet mean volume (Bld) [Entitic vol] 8.7 fL Normal 6.4-10.8 [facility] Comment on above: Performed By: #### 2 949891 #### [facility] [address] [place] [address] Platelets (Bld) [#/Vol] 221.0 E9/L Normal 150.0-500.0 [facility] Comment on above: Performed By: #### 2 954350 #### [facility] [address] [place] [address] RBC (Bld) [#/Vol] 4.8 E12/L Normal 4.3-5.9 [facility] Comment on above: Performed By: #### 2 [id number] #### [facility] [address] [place] [address] WBC corrected for nucl RBC Auto (Bld) [#/Vol] 12.6 E9/L High 4.0-11.0 [facility] Comment on above: Performed By: #### 2 696182 #### [facility] [address] [place] [address] Hep Func Panelon 03-20-2024 Albumin [Mass/Vol] 4.5 g/dL Normal 3.3-5.0 [facility] Comment on above: Performed By: #### 2 900391 #### [facility] [address] [place] [address] Albumin/Globulin (S) [Mass conc ratio] 2.0 Normal 1.1-2.2 [facility] Comment on above: Performed By: #### 2 540033 #### [facility] [address] [place] [address] ALP [Catalytic activity/Vol] 61 Int._Unit/L Normal 21-98 [facility] Comment on above: Performed By: #### 2 485646 #### [facility] [address] [place] [address] ALT No additional P-5'-P [Catalytic activity/Vol] 19 Int._Unit/L Normal 6-46 [facility] Comment on above: Performed By: #### 2 [id number] #### [facility] [address] [place] [address] AST [Catalytic activity/Vol] 16 Int._Unit/L Normal 5-43 [facility] Comment on above: Performed By: #### 2 369372 #### [facility] [address] [place] [address] Bilirubin [Mass/Vol] 0.3 mg/dL Normal 0.0-1.1 [facility] Comment on above: Performed By: #### 2 [id number] #### [facility] [address] [place] [address] Bilirubin.direct [Mass/Vol] 0.0 mg/dL Normal 0.0-0.4 [facility] Comment on above: Performed By: #### 2 207682 #### [facility] [address] [place] [address] Bilirubin.indirect [Mass or moles/Vol] 0.3 mg/dL Normal 0.1-0.9 [facility] Comment on above: Performed By: #### 2 836554 #### [facility] [address] [place] [address] Globulin (S) [Mass/Vol] 2.2 g/dL Normal 1.4-4.0 [facility] Comment on above: Performed By: #### 2 092292 #### [facility] [address] [place] [address] Protein [Mass/Vol] 6.7 g/dL Normal 6.0-7.8 [facility] Comment on above: Performed By: #### 2 [id number] #### [facility] [address] [place] [address] Lipase Levelon 03-20-2024 Lipase [Catalytic activity/Vol] 32 U/L Normal 13-58 [facility] Comment on above: Performed By: #### 2 426782 #### [facility] [address] [place] [address] Magnesiumon 03-20-2024 Magnesium [Mass/Vol] 2.1 mg/dL Normal 1.3-2.4 [facility] Comment on above: Performed By: #### 2 [id number] #### [facility] [address] [place] [address] TSH With T4fr Reflexon 03-20 TSH Qn 3.72 m[IU]/L Normal 0.34-5.60 [facility] Comment on above: Performed By: #### 1 [id number] #### [facility] [address] [place] [address] U BetaHcg Qualon 03-20-2024 HCG.beta subunit (U) [Moles/Vol] Negative Normal [facility] Comment on above: Performed By: #### 2 [id number] #### [facility] [address] [place] [address] UA with Cult Rflxon 03-20-20 24 Bilirubin Ql (U) Negative Normal Negative [facility] Comment on above: Performed By: #### 4 [id number] #### [facility] [address] [place] [address] Clarity (U) Clear Normal Clear [facility] Comment on above: Performed By: #### 4 [id number] #### [facility] [address] [place] [address] Color (U) Colorless Abnormal Yellow [facility] Comment on above: Result Comment: Micr oscopic readings are only performed on those samples that meet specific criteria set forth by [facility]. Performed By: #### 4 [id number] #### [facility] [address] [place] [address] Glucose Ql (U) Negative Normal Negative [facility] Comment on above: Performed By: #### 4 [id number] #### [facility] [address] [place] [address] Hemoglobin Auto test strip (U) [Mass/Vol] Negative Normal Negative [facility] Comment on above: Performed By: #### 4 [id number] #### [facility] [address] [place] [address] Ketones Auto test strip Ql (U) Negative Normal Negative [facility] Comment on above: Performed By: #### 4 [id number] #### [facility] [address] [place] [address] Leukocyte esterase Auto test strip Ql (U) Negative Normal Negative [facility] Comment on above: Performed By: #### 4 [id number] #### [facility] [address] [place] [address] Nitrite Auto test strip Ql (U) Negative Normal Negative [facility] Comment on above: Performed By: #### 4 [id number] #### [facility] [address] [place] [address] pH (U) 7.0 [pH] Invalid Interpretation Code 5.0-9.0 [facility] Comment on above: Performed By: #### 4 [id number] #### [facility] [address] [place] [address] Protein Ql (U) Negative Normal Negative [facility] Comment on above: Performed By: #### 4 [id number] #### [facility] [address] [place], [place] [address] Specific gravity (U) [Rel density] 1.003 Invalid Interpretation Code 1.005-1.030 [facility] Comment on above: Performed By: #### 4 [id number] #### [facility] [address] [place] [address] Urobilinogen (U) [Mass/Vol] Negative Normal Negative [facility] Comment on above: Performed By: #### 4 [id number] #### [facility] [address] [place] [address] Type of Urine collection method Clean Catch Normal [facility] Comment on above: Performed By: #### 4 [id number] #### [facility] [address] [place] [address] eGFRon 03-20-2024 eGFR 119 mL/min/1.73 m2 Normal >=59 [facility] Comment on above: Order Comment: Order added by Discern Expert. Performed By: #### 1 [id number] #### [facility] [address] [place] [address] Vit B1on 03-18-2024 Thiamine (Bld) [Moles/Vol] 108.6 nmol/L Invalid Interpretation Code 66.5-200.0 [facility] Comment on above: Result Comment: This test was developed and its performance characteristics determined by [facility]. It has not been cleared or approved by the Food and Drug Administration. Performed at: [facility] [id number] MD Ubaldo Ann Performed By: #### 1 [id number] #### [facility] [address] [place] [address] C Urineon 03-16-2024 Bacteria identified Cx Nom (U) Microbiology PROCEDURE: Urine Culture [R1] SOURCE: U CleanCatch BODY SITE: COLLECTED DATE/TIME: 03/14/2024 07:41 EDT RECEIVED DATE/TIME: 03/14/2024 08:24 EDT START DATE/TIME: 03/14/2024 08:25 EDT FREE TEXT SOURCE: NIRAJ SIMMONS, [facility] IRIS, SH[facility] FINAL REPORTS Final Report [] Verified Date/Time: 03/16/2024 10:31 EDT 2,000 cfu/ml Mixed skin contaminants Performing Locations R1: This test was performed at: [facility], [address] [place] [address], [address]- , , Normal [facility] Comment on above: Performed By: #### 2 [id number] #### [facility] [address] [place], [place] [id number] XR Spine Lumbar Complete Inc dusty Bendion 03-16-2024 XR Spine Lumbar Complete Including [...] Ananda Shine DO Transcribed by: DAVID Technologist: CC Technical Comments Radiation Dose: Ka,r in mGy = na DAP = na Normal [facility] PTH Intacton 03-15-2024 Parathyrin.intact [Mass/Vol] 35 pg/mL Invalid Interpretation Code 15-65 [facility] Comment on above: Result Comment: Perf ormed at: [facility] [address] [id number] PhD Fadumo Peraza Performed By: #### 1 [id number] #### [facility] [address] [place] [address] Automated basophil countOrde red By: SYSTEM SYSTEM on 03-14-2024 Basophils/100 WBC (Bld) 0.4 % 0.0-2.0 R emisol Heme Automated blood monocyte cou ntOrdered By: SYSTEM SYSTEM on 03-14-2024 Monocytes/100 WBC (Bld) 7.7 % 4.0-14.0 R emisol Heme Basophils Auto (Bld) [#/Vol] on 03-14-2024 Basophils (Bld) [#/Vol] Automated basoph il count 0.0-2.0 [facility] Basophils/100 WBC Auto (Bld) on 03-14-2024 Basophils/100 WBC (Bld) 0.0 E9/L 0.0-0.2 [facility] Basophils/100 WBC (Bld) Automated basophil % 0. 0-0.2 [facility] Blood thiamine measurement ( moles/volume)on 03-14-2024 Thiamine (Bld) [Moles/Vol] 108.6 nmol/L 66.5-200.0 [facility] Thiamine (Bld) [Moles/Vol] Blood thiamine measurement (moles/volume) 66.5-200.0 [facility] CBC w/ Auto Diffon 4 Basophils/100 WBC (Bld) 0.4 % Normal 0.0-2.0 [facility] Comment on above: Performed By: #### 2 [id number] #### [facility] [address] [place] [address] Basophils/Leukocytes Auto (Bld) [Pure # fraction] 0.0 E9/L Normal 0.0-0.2 [facility] Comment on above: Performed By: #### 2 [id number] #### [facility] [address] [place] [address] Eosinophils (Bld) [#/Vol] 0.1 E9/L Normal 0.0-0.5 [facility] Comment on above: Performed By: #### 2 [id number] #### [facility] [address] [place] [address] Eosinophils/100 WBC (Bld) 1.4 % Normal 0.0-8.0 [facility] Comment on above: Performed By: #### 2 [id number] #### [facility] [address] [place] [address] Erythrocyte distribution width (RBC) [Ratio] 13.0 % Normal 10.9-14.2 [facility] Comment on above: Performed By: #### 2 [id number] #### [facility] [address] [place] [address] Hematocrit (Bld) [Volume fraction] 44.3 % Normal 34.0-46.0 [facility] Comment on above: Performed By: #### 2 [id number] #### [facility] [address] [place] [address] Hemoglobin (Bld) [Mass/Vol] 15.4 g/dL Normal 12.0-16.0 [facility] Comment on above: Performed By: #### 2 [id number] #### [facility] [address] [place] [address] Lymphocytes (Bld) [#/Vol] 2.6 E9/L Normal 1.0-4.0 [facility] Comment on above: Performed By: #### 2 775846 #### [facility] [address] [place] [address] Lymphocytes/100 WBC (Bld) 26.0 % Normal 14.0-50.0 [facility] Comment on above: Performed By: #### 2 [id number] #### [facility] [address] [place] [address] MCH (RBC) [Entitic mass] 31.0 pg Normal 27.0-34.0 [facility] Comment on above: Performed By: #### 2 552608 #### [facility] [address] [place] [address] MCHC (RBC) [Mass/Vol] 34.8 g/dL Normal 31.4-36.0 [facility] Comment on above: Performed By: #### 2 225732 #### [facility] [address] [place] [address] MCV (RBC) [Entitic vol] 89.2 fL Normal 80.0-100.0 [facility] Comment on above: Performed By: #### 2 [id number] #### [facility] [address] [place] [address] Monocytes (Bld) [#/Vol] 0.8 E9/L Normal 0.2-1.0 [facility] Comment on above: Performed By: #### 2 [id number] #### [facility] [address] [place] [address] Neutrophils (Bld) [#/Vol] 6.4 E9/L Normal 2.0-7.5 [facility] Comment on above: Performed By: #### 2 825525 #### [facility] [address] [place] [address] Neutrophils/100 WBC (Bld) 64.5 % Normal 36.0-75.0 [facility] Comment on above: Performed By: #### 2 129334 #### [facility] [address] [place] [address] Platelet mean volume (Bld) [Entitic vol] 8.6 fL Normal 6.4-10.8 [facility] Comment on above: Performed By: #### 2 750781 #### [facility] [address] [place] [address] Platelets (Bld) [#/Vol] 229.0 E9/L Normal 150.0-500.0 [facility] Comment on above: Performed By: #### 2 049279 #### [facility] [address] [place] [address] RBC (Bld) [#/Vol] 5.0 E12/L Normal 4.3-5.9 [facility] Comment on above: Performed By: #### 2 [id number] #### [facility] [address] [place] [address] WBC corrected for nucl RBC Auto (Bld) [#/Vol] 9.9 E9/L Normal 4.0-11.0 [facility] Comment on above: Performed By: #### 2 [id number] #### [facility] [address] [place] [address] CHEMISTRYOrdered By: SYSTEM SYSTEM on 03-14-2024 25-hydroxyvitamin [...] 03-14-2024 Albumin [Mass/Vol] 4.5 g/dL Normal 3.3-5.0 [facility] Comment on above: Performed By: #### 2 586137 #### [facility] [address] [place] [address] Albumin/Globulin (S) [Mass conc ratio] 1.9 Normal 1.1-2.2 [facility] Comment on above: Performed By: #### 2 [id number] #### [facility] [address] [place] [address] ALP [Catalytic activity/Vol] 66 Int._Unit/L Normal 21-98 [facility] Comment on above: Performed By: #### 2 [id number] #### [facility] [address] [place] [address] ALT No additional P-5'-P [Catalytic activity/Vol] 25 Int._Unit/L Normal 6-46 [facility] Comment on above: Performed By: #### 2 [id number] #### [facility] [address] [place] [address] Anion gap [Moles/Vol] 12 mmol/L Normal 6-16 [facility] Comment on above: Performed By: #### 2 [id number] #### [facility] [address] [place] [address] AST [Catalytic activity/Vol] 21 Int._Unit/L Normal 5-43 [facility] Comment on above: Performed By: #### 2 [id number] #### [facility] [address] [place] [address] Bilirubin [Mass/Vol] 0.7 mg/dL Normal 0.0-1.1 [facility] Comment on above: Performed By: #### 2 [id number] #### [facility] [address] [place] [address] Calcium [Mass/Vol] 9.2 mg/dL Normal 8.9-11.1 [facility] Comment on above: Performed By: #### 2 [id number] #### [facility] [address] [place] [address] Chloride [Moles/Vol] 105 mmol/L Normal 101-111 [facility] Comment on above: Performed By: #### 2 [id number] #### [facility] [address] [place] [address] CO2 [Moles/Vol] 25 mmol/L Normal 21-31 [facility] Comment on above: Performed By: #### 2 [id number] #### [facility] [address] [place] [address] Creatinine [Mass/Vol] 0.8 mg/dL Normal 0.5-1.3 [facility] Comment on above: Performed By: #### 2 [id number] #### [facility] [address] [place] [address] Globulin (S) [Mass/Vol] 2.4 g/dL Normal 1.4-4.0 [facility] Comment on above: Performed By: #### 2 [id number] #### [facility] [address] [place] [address] Glucose [Mass/Vol] 97 mg/dL Normal 55-199 [facility] Comment on above: Performed By: #### 2 [id number] #### [facility] [address] [place] [address] Potassium [Moles/Vol] 3.8 mmol/L Normal 3.5-5.3 [facility] Comment on above: Performed By: #### 2 [id number] #### [facility] [address] [place] [address] Protein [Mass/Vol] 6.9 g/dL Normal 6.0-7.8 [facility] Comment on above: Performed By: #### 2 [id number] #### [facility] [address] [place] [address] Sodium [Moles/Vol] 138 mmol/L Normal 135-145 [facility] Comment on above: Performed By: #### 2 [id number] #### [facility] [address] [place] [address] Urea nitrogen [Mass/Vol] 8 mg/dL Normal 5-21 [facility] Comment on above: Performed By: #### 2 [id number] #### [facility] [address] [place] [address] Urea nitrogen/Creatinine [Mass ratio] 10 No Units Normal 10-20 [facility] Comment on above: Performed By: #### 2 [id number] #### [facility] [address] [place] [address] Eosinophils/100 WBC Manual c nt (Bld)on 03-14-2024 Eosinophils/100 WBC (Bld) Eosinophils/100 leukocytes in Blood by Manual count 0.0-8.0 [facility] Eosinophils/100 leukocytes i n Blood by Manual countOrdered By: SYSTEM SYSTEM on 03-14-2024 Eosinophils/100 WBC (Bld) 1.4 % 0.0-8.0 [facility] Erythrocyte distribution wid th Auto (RBC) [Ratio]on 03-14-2024 Erythrocyte distribution width (RBC) [Ratio] Erythrocyte distribution width [Ratio] by Automated count 10.9-14.2 [facility] Erythrocyte distribution wid th [Ratio] by Automated [...] (S/P/Bld) [Vol rate/Area] 102 mL/min/1.73 m2 >=59 [facility] GFR/1.73 sq M.predicted among non-blacks MDRD (S/P/Bld) [Vol rate/Area] Estimated glomerular filtration rate (GFR) non- >=59 [facility] Globulin Calc (S) [Mass/Vol] on 03-14-2024 Globulin (S) [Mass/Vol] Serum globulin measurement by calculation (mass/volume) 1.4-4.0 [facility] HEMATOLOGYOrdered By: SYSTEM SYSTEM on 03-14-2024 Basophils/Leukocytes Auto (Bld) [Pure # fraction] 0.0 E9/L Normal 0.0 - 0.2 E9/L [facility] Eosinophils (Bld) [#/Vol] 0.1 E9/L Normal 0.0 - 0.5 E9/L [facility] Lymphocytes (Bld) [#/Vol] 2.6 E9/L Normal 1.0 - 4.0 E9/L [facility] Monocytes (Bld) [#/Vol] 0.8 E9/L Normal 0.2 - 1.0 E9/L [facility] Hematocrit Auto (Bld) [Volum e fraction]on 03-14-2024 Hematocrit (Bld) [Volume fraction] Hematocrit [Volume Fraction] of Blood by Automated count 34.0-46.0 [facility] Hematocrit [Volume Fraction] of Blood by Automated countOrdered By: SYSTEM SYSTEM on 03-14-2024 Hematocrit (Bld) [Volume fraction] 44.3 % 34.0-46.0 [facility] Hemoglobin [Mass/volume] in BloodOrdered By: SYSTEM SYSTEM on 03-14-2024 Hemoglobin (Bld) [Mass/Vol] 15.4 g/dL 12.0-16.0 [facility] Hemoglobin [Mass/volume] in Bloodon 03-14-2024 Hemoglobin (Bld) [Mass/Vol] Hemoglobin [Mass/volume] in Blood 12.0-16.0 [facility] [id number] 03-14-2024 HbA1c (Bld) [Mass fraction] 4.8 % Normal <=5.9 [facility] Comment on above: Performed By: #### 7 [id number] #### [facility] [address] [place] [address] Ironon 03-14-2024 Iron [Mass/Vol] 79 microgram/dL Normal 35-153 [facility] Comment on above: Performed By: #### 2 [id number] #### [facility] [address] [place] [address] Iron binding capacity [Mass/ volume] in Serum or Plasmaon 03-14-2024 Iron binding capacity [Mass/Vol] 410 microgram/dL High 250-400 [facility] Iron binding capacity [Mass/Vol] Iron binding capacity [Mass/volume] in Serum or Plasma High 250-400 [facility] Laboratory - Chemistry and C hemistry [...] Auto SS Urobilinogen (U) [Mass/Vol] Negative Negative FT UA Auto SS Laboratory - Chemistry and C hemistry - challengeon 03-14-2024 Glucose (U) [Mass/Vol] Negative Negative [facility] Ketones Ql (U) Negative Negative [facility] pH (U) 5.5 [pH] 5.0-9.0 [facility] Specific gravity (U) [Rel density] 1.026 1.005-1.030 [facility] - Hematology and Cell countsOrdered By: Martina Chou on 03-14-2024 HbA1c (Bld) [Mass fraction] 4.8 % <=5.9 [facility] ChemAutoSS Laboratory - Hematology and Cell countsOrdered By: SYSTEM SYSTEM on 03-14-2024 Neutrophils/100 WBC (Bld) 64.5 % 36.0-75.0 [facility] - Specimen inform ationon 03-14-2024 Appearance (U) Turbid Abnormal Clear [facility] Color (U) Yellow Yellow [facility] Specimen type Nom (Spec) Clean Catch [facility] - Urinalysison Leukocyte esterase Test strip Ql (U) 500 Mavis/uL CD:[id number] Abnormal Negative [facility] Mucus Ql (Urine sed) 1+ CD:[id number] Abnormal Negative [facility] Nitrite Ql (U) Negative Negative [facility] - UrinalysisOrder ed By: SYSTEM SYSTEM on 03-14-2024 Protein Ql (U) Trace mg/dL Abnormal Negative [facility] UA A uto SS Leukocytes [#/volume] correc gemini for nucleated erythrocytes in Blood by Automated counOrdered By: SYSTEM SYSTEM on 03-14-2024 WBC corrected for nucl RBC Auto (Bld) [#/Vol] 9.9 E9/L 4.0-11.0 [facility] Leukocytes [#/volume] correc gemini for nucleated erythrocytes in Blood by Automated counon 03-14-2024 WBC corrected for nucl RBC Auto (Bld) [#/Vol] Leukocytes [#/volume] corrected for nucleated erythrocytes in Blood by Automated coun 4.0-11.0 [facility] Lymphocytes Auto (Bld) [#/Vo l]on 03-14-2024 Lymphocytes (Bld) [#/Vol] Lymphocytes [#/volume] in Blood by Automated count 14.0-50.0 [facility] Lymphocytes [#/volume] in Bl ood by Automated countOrdered By: SYSTEM SYSTEM on 03-14-2024 Lymphocytes/100 WBC (Bld) 26.0 % 14.0-50.0 [facility] MCH Auto (RBC) [Entitic mass ]on 03-14-2024 MCH (RBC) [Entitic mass] MCH [Entitic ma ss] by Automated count 27.0-34.0 [facility] MCH [Entitic mass] by Automa gemini countOrdered By: SYSTEM SYSTEM on 03-14-2024 MCH (RBC) [Entitic mass] 31.0 pg 27.0-34.0 [facility] MCHC Auto (RBC) [Mass/Vol]on 03-14-2024 MCHC (RBC) [Mass/Vol] MCHC [Mass/volume] by Automated count 31.4-36.0 [facility] MCHC [Mass/volume] by Automa gemini countOrdered By: SYSTEM SYSTEM on 03-14-2024 MCHC (RBC) [Mass/Vol] 34.8 g/dL 31.4-36.0 [facility] MCV Auto (RBC) [Entitic vol] on 03-14-2024 MCV (RBC) [Entitic vol] MCV [Entitic vol ume] by Automated count 80.0-100.0 [facility] MCV [Entitic volume] by Auto mated countOrdered By: SYSTEM SYSTEM on 03-14-2024 MCV (RBC) [Entitic vol] 89.2 fL 80.0-100.0 [facility] Monocytes Auto (Bld) [#/Vol] on 03-14-2024 Monocytes (Bld) [#/Vol] Automated blood monocyte count 4.0-14.0 [facility] Neutrophils Auto (Bld) [#/Vo l]on 03-14-2024 Neutrophils (Bld) [#/Vol] Neutrophils [#/volume] in Blood by Automated count 2.0-7.5 [facility] Neutrophils [#/volume] in Bl ood by Automated countOrdered By: SYSTEM SYSTEM on 03-14-2024 Neutrophils (Bld) [#/Vol] 6.4 E9/L 2.0-7.5 [facility] No Panel InformationOrdered By: Shawna Healy on 03-14-2024 C Urine [facility] C Urine [facility] No Panel Informationon 03-14 25-Hydroxy Vitamin D Total 25.8 ng/mL Low 30.0-100.0 [facility] Alanine Aminotransferase (ALT/SGPT) 25 Int._Unit/L 6-46 [facility] Alkaline Phosphatase 66 Int._Unit/L 21-98 [facility] Aspartate Amino Transf (AST/SGOT) 21 Int._Unit/L 5-43 [facility] BUN/Creatinine Ratio 10 No Units 10-20 [facility] Eosinophils # (Auto) 0.1 E9/L 0.0-0.5 [facility] Iron Level 79 microgram/dL 35-153 [facility] Lymphocytes # (Manual) 2.6 E9/L 1.0-4.0 Fi [facility] Parathyroid Hormone (Intact) 35 pg/mL 15-65 [facility] Urine Bacteria Trace [HPF] Trace [facility] Urine Occult Blood Trace mg/dL Abnormal Negative [facility] Urine RBC 4-20 CD:[id number] Abnormal 0-3 [facility] Urine Squamous Epithelial Cells 9-10 CD:[id number] [facility] Urine WBC 26-30 CD:[id number] Abnormal 0-5 [facility] Platelet mean volume Auto (B ld) [Entitic vol]on 03-14-2024 Platelet mean volume (Bld) [Entitic vol] Platelet mean volume [Entitic volume] in Blood by Automated count 6.4-10.8 [facility] Platelet mean volume [Entiti c volume] in Blood by Automated countOrdered By: SYSTEM SYSTEM on 03-14-2024 Platelet mean volume (Bld) [Entitic vol] 8.6 fL 6.4-10.8 [facility] Platelets Auto (Bld) [#/Vol] on 03-14-2024 Platelets (Bld) [#/Vol] Platelets [#/vol ume] in Blood by Automated count 150.0-500.0 [facility] Platelets [#/volume] in Bloo d by Automated countOrdered By: SYSTEM SYSTEM on 03-14-2024 Platelets (Bld) [#/Vol] 229.0 E9/L 150.0-500.0 [facility] RBC Auto (Bld) [#/Vol]on RBC (Bld) [#/Vol] Erythrocytes [#/volume] in Blood by Automated count 4.3-5.9 [facility] Serum globulin measurement b y calculation (mass/volume)Ordered By: SYSTEM SYSTEM on 03-14-2024 Globulin (S) [Mass/Vol] 2.4 g/dL 1.4-4.0 [facility] Serum or plasma albumin/glob ulin mass ratioOrdered By: SYSTEM SYSTEM on 03-14-2024 Albumin/Globulin [Mass ratio] 1.9 {ratio} 1.1-2.2 [facility] Serum or plasma albumin/glob ulin mass ratioon 03-14-2024 Albumin/Globulin [Mass ratio] Serum or plasma albumin/globulin mass ratio 1.1-2.2 [facility] Serum or plasma anion gap de terminationOrdered By: SYSTEM SYSTEM on 03-14-2024 Anion gap [Moles/Vol] 12 mmol/L 12-17 Rem [facility] Chem Serum or plasma anion gap de terminationon 03-14-2024 Anion gap [Moles/Vol] Serum or plasma anion gap determination 12-17 [facility] TIBC Calculatedon 03-14-2024 Iron binding capacity [Mass/Vol] 410 microgram/dL High 250-400 [facility] Comment on above: Performed By: #### 1 [id number] #### [facility] [address] [place] [address] Transferrin [Mass/Vol] 293 mg/dL Normal 200-370 [facility] Comment on above: Performed By: #### 1 [id number] #### [facility] [address] [place] [address] TSH With T4fr Reflexon 03-14 TSH Qn 2.09 m[IU]/L Normal 0.34-5.60 [facility] Comment on above: Performed By: #### 1 [id number] #### [facility] [address] [place] [address] URINALYSISOrdered By: SYSTEM SYSTEM on 03-14-2024 Bacteria [...] that meet specific criteria set forth by [facility]. Epithelial cells.squamous Auto (Urine sed) [#/Area] 9-10 graded/HPF Invalid Interpretation Code FT UA Auto SS Glucose Ql (U) Negative [...] Desc Clean Catch (03/14/24 7:41 AM) Normal [facility] UA Auto SS Urinalysis with Microon 03-04 Bacteria Auto Ql (U) Trace Normal Trace Fish [facility] Comment on above: Performed By: #### 4 [id number] #### [facility] [address] [place] [address] Bilirubin Ql (U) Negative Normal Negative [facility] Comment on above: Performed By: #### 4 [id number] #### [facility] [address] [place] [address] Clarity (U) Turbid Abnormal Clear [facility] Comment on above: Performed By: #### 4 [id number] #### [facility] [address] [place] [address] Color (U) Yellow Normal Yellow [facility] Comment on above: Result Comment: Micr oscopic readings are only performed on those samples that meet specific criteria set forth by [facility]. Performed By: #### 4 [id number] #### [facility] [address] [place] [address] Epithelial cells.squamous Auto (Urine sed) [#/Area] 9-10 Invalid Interpretation Code [facility] Comment on above: Performed By: #### 4 [id number] #### [facility] [address] [place] [address] Glucose Ql (U) Negative Normal Negative [facility] Comment on above: Performed By: #### 4 [id number] #### [facility] [address] [place] [address] Hemoglobin Auto test strip (U) [Mass/Vol] Trace Abnormal Negative [facility] Comment on above: Performed By: #### 4 [id number] #### [facility] [address] [place] [address] Ketones Auto test strip Ql (U) Negative Normal Negative [facility] Comment on above: Performed By: #### 4 [id number] #### [facility] [address] [place] [address] Leukocyte esterase Auto test strip Ql (U) 500 Mavis/uL Abnormal Negative [facility] Comment on above: Performed By: #### 4 [id number] #### [facility] [address] [place] [address] Mucus Auto Ql (U) 1+ CD:[id number] Abnormal Negative [facility] Comment on above: Performed By: #### 4 [id number] #### [facility] [address] [place] [address] Nitrite Auto test strip Ql (U) Negative Normal Negative [facility] Comment on above: Performed By: #### 4 [id number] #### [facility] [address] [place] [address] pH (U) 5.5 [pH] Invalid Interpretation Code 5.0-9.0 [facility] Comment on above: Performed By: #### 4 [id number] #### [facility] [address] [place] [address] Protein Ql (U) Trace Abnormal Negative [facility] Comment on above: Performed By: #### 4 [id number] #### [facility] [address] [place] [address] RBC Ql (U) 4-20 Abnormal 0-3 [facility] Comment on above: Performed By: #### 4 [id number] #### [facility] [address] [place] [address] Specific gravity (U) [Rel density] 1.026 Invalid Interpretation Code 1.005-1.030 [facility] Comment on above: Performed By: #### 4 [id number] #### [facility] [address] [place] [address] Urobilinogen (U) [Mass/Vol] Negative Normal Negative [facility] Comment on above: Performed By: #### 4 [id number] #### [facility] [address] [place] [address] WBC Auto (Urine sed) [#/Area] 26-30 Abnormal 0-5 [facility] Comment on above: Performed By: #### 4 [id number] #### [facility] [address] [place] [address] Type of Urine collection method Clean Catch Normal [facility] Comment on above: Performed By: #### 4 [id number] #### [facility] [address] [place] [address] Vit B12on 03-14-2024 Cobalamin (Vitamin B12) [Mass/Vol] 345 pg/mL Normal 50-1500 [facility] Comment on above: Performed By: #### 2 [id number] #### [facility] [address] [place] [address] Vitamin D 25 Hydroxyon 03-14 25-hydroxyvitamin D3 [Mass/Vol] 25.8 ng/mL Low 30.0-100.0 [facility] Comment on above: Performed By: #### 5 [id number] #### [facility] [address] [place] [address] eGFRon 03-14-2024 eGFR 102 mL/min/1.73 m2 Normal >=59 [facility] Comment on above: Order Comment: Order added by Discern Expert. Performed By: #### 1 [id number] #### [facility] [address] [place] [address] Ambulatory Visit Summaryon 0 01-10-2024 Ambulatory Visit [...] AM EDT With: Juliana Barton MD Where: [facility] Normal [facility] Gastroenterology Office/Clin ic Noteon 01-10-2024 Gastroenterology Office/Clinic Note Gastroenterology Office/Clinic Note Chief Complaint f/u ER - right flank pain, n/v HPI Staff Patient is a 28 year old female who presents today for a f/u from [facility] ER 12/28/23 for right flank pain, nausea [...] 88.8 fL (12/28/23) Chloride: 107 mmol/L (12/28/23) Potter Absolute: 0.5 E9/L (12/28/23) CO2: 24 mmol/L (12/28/23) Potter Auto: 5.4 % (12/28/23) Creatinine: 0.7 mg/dL [...] Daily, # 30 cap(s), Refills(s) 5, [facility]: [id number], 160, cm, 01/10/24 13:34:00 EDT, Height/Length Dosing, 85, kg, 01/10/24 13:34:00 EDT, Weight Dosing 2. Nausea and vomiting (R11.2: Nausea with vomiting, unspecified) Ordered: linaclotide, 145 mcg = 1 cap(s), Oral, Daily, # 30 cap(s), Refills(s) 5, Pharmacy: [facility][id number], 160, cm, 01/10/24 13:34:00 EDT, Height/Length Dosing, [...] syndrome w (more content not included)... Normal [facility] Comment on above: Result Comment: Elec tronically Signed By: Oralia BURKS, Juliana Silva\Date and Time Signed: 01/10/24 14:04 EDT BMPon 12-28-2023 Creatinine [Mass/Vol] 0.7 mg/dL Normal 0.5-1.3 [facility] Comment on above: Performed By: #### 2 [id number] #### [facility] [address] [place] [address] Urea nitrogen/Creatinine [Mass ratio] 9 No Units Low 10-20 [facility] Comment on above: Performed By: #### 2 [id number] #### [facility] [address] [place] [address] Anion gap [Moles/Vol] 13 mmol/L Normal 6-16 [facility] Comment on above: Performed By: #### 2 [id number] #### [facility] [address] [place] [address] Calcium [Mass/Vol] 9.3 mg/dL Normal 8.9-11.1 [facility] Comment on above: Performed By: #### 2 [id number] #### [facility] [address] [place] [address] Chloride [Moles/Vol] 107 mmol/L Normal 101-111 [facility] Comment on above: Performed By: #### 2 [id number] #### [facility] [address] [place] [address] CO2 [Moles/Vol] 24 mmol/L Normal 21-31 [facility] Comment on above: Performed By: #### 2 [id number] #### [facility] [address] [place] [address] Glucose [Mass/Vol] 103 mg/dL Normal 55-199 [facility] Comment on above: Performed By: #### 2 [id number] #### [facility] [address] [place] [address] Potassium [Moles/Vol] 3.9 mmol/L Normal 3.5-5.3 [facility] Comment on above: Performed By: #### 2 [id number] #### [facility] [address] [place] [address] Sodium [Moles/Vol] 140 mmol/L Normal 135-145 [facility] Comment on above: Performed By: #### 2 [id number] #### [facility] [address] [place] [address] Urea nitrogen [Mass/Vol] 6 mg/dL Normal 5-21 [facility] Comment on above: Performed By: #### 2 [id number] #### [facility] [address] [place] [address] CBC w/ Auto Diffon 4 Basophils/100 WBC (Bld) 0.4 % Normal 0.0-2.0 [facility] Comment on above: Performed By: #### 2 [id number] #### [facility] [address] [place] [address] Basophils/Leukocytes Auto (Bld) [Pure # fraction] 0.0 E9/L Normal 0.0-0.2 [facility] Comment on above: Performed By: #### 2 [id number] #### [facility] [address] [place] [address] Eosinophils (Bld) [#/Vol] 0.2 E9/L Normal 0.0-0.5 [facility] Comment on above: Performed By: #### 2 [id number] #### [facility] [address] [place] [address] Eosinophils/100 WBC (Bld) 1.8 % Normal 0.0-8.0 [facility] Comment on above: Performed By: #### 2 [id number] #### [facility] [address] [place] [address] Erythrocyte distribution width (RBC) [Ratio] 13.2 % Normal 10.9-14.2 [facility] Comment on above: Performed By: #### 2 [id number] #### [facility] [address] [place] [address] Hematocrit (Bld) [Volume fraction] 44.4 % Normal 34.0-46.0 [facility] Comment on above: Performed By: #### 2 [id number] #### [facility] [address] [place] [address] Hemoglobin (Bld) [Mass/Vol] 15.2 g/dL Normal 12.0-16.0 [facility] Comment on above: Performed By: #### 2 [id number] #### [facility] [address] [place] [address] Lymphocytes (Bld) [#/Vol] 2.0 E9/L Normal 1.0-4.0 [facility] Comment on above: Performed By: #### 2 [id number] #### [facility] [address] [place] [address] Lymphocytes/100 WBC (Bld) 20.4 % Normal 14.0-50.0 [facility] Comment on above: Performed By: #### 2 [id number] #### [facility] [address] [place] [address] MCH (RBC) [Entitic mass] 30.4 pg Normal 27.0-34.0 [facility] Comment on above: Performed By: #### 2 [id number] #### [facility] [address] [place] [address] MCHC (RBC) [Mass/Vol] 34.2 g/dL Normal 31.4-36.0 [facility] Comment on above: Performed By: #### 2 [id number] #### [facility] [address] [place] [address] MCV (RBC) [Entitic vol] 88.8 fL Normal 80.0-100.0 [facility] Comment on above: Performed By: #### 2 [id number] #### [facility] [address] [place] [address] Monocytes (Bld) [#/Vol] 0.5 E9/L Normal 0.2-1.0 [facility] Comment on above: Performed By: #### 2 [id number] #### [facility] [address] [place] [address] [place] [address] Neutrophils (Bld) [#/Vol] 7.0 E9/L Normal 2.0-7.5 [facility] Comment on above: Performed By: #### 2 [id number] #### [facility] [address] [place] [address] Neutrophils/100 WBC (Bld) 72.0 % Normal 36.0-75.0 [facility] Comment on above: Performed By: #### 2 [id number] #### [facility] [address] [place] [address] Platelet mean volume (Bld) [Entitic vol] 8.1 fL Normal 6.4-10.8 [facility] Comment on above: Performed By: #### 2 [id number] #### [facility] [address] [place] [address] Platelets (Bld) [#/Vol] 202.0 E9/L Normal 150.0-500.0 [facility] Comment on above: Performed By: #### 2 [id number] #### [facility] [address] [place] [address] RBC (Bld) [#/Vol] 5.0 E12/L Normal 4.3-5.9 [facility] Comment on above: Performed By: #### 2 [id number] #### [facility] [address] [place] [address] WBC corrected for nucl RBC Auto (Bld) [#/Vol] 9.8 E9/L Normal 4.0-11.0 [facility] Comment on above: Performed By: #### 2 [id number] #### [facility] [address] [place] [address] CHEMISTRYOrdered By: SYSTEM SYSTEM on 12-28-2023 Albumin [...] REPORT Dictated: 12/28/2023 2:34 pm Humberto Horne MD. Signed (Electronic Signature): 12/28/2023 2:34 pm Signed by: Humberto Horne MD Transcribed by: DAVID Technologist: NISHANT Technical Comments GFR (mL/min/1/73m2) >60 Contrast: Isovue 300 Contrast amount in ml's: 100 Normal [facility] Consent for Treatmenton - Consent for Treatment [id number] #1.00TIFF Normal [facility] Discharge Instructionson Discharge Instructions [id number] 1.00TIFF Normal [facility] ED Clinical Summaryon 2023 ED Clinical Summary [place] [id number] ED Clinical Summary Person Information [facility]: [facility] 28 Years : 1995 Sex: Female Language: Greek PCP: SHAWNA HEALY CNP Marital Status: Phone: [phone] Visit Id: Visit Reason: Nausea; Abdominal pain; [...] 12/28/2023 15:06:07 12/28/2023 15:06:07 AD[address]: [address] [place] [id number] PHYS DOC NOTES: MEDICAL INFORMATION: Prescriptions Given: New Medications [id number], [address] [place], [place] [id number], [phone] dicyclomine (Bentyl 10 mg Cap) 1 Capsules By Mouth 4 times a day for 7 Days. Refills: 0. pantoprazole (Protonix 40 mg Tab-DR) 1 Tablets By Mouth every day. Refills: 0. sucralfate (Carafate 1 gram Tab) 1 Tablets By Mouth 4 times a day for 7 Days. Refills: 0. Medications to Continue Taking That Have Changed [facility] #[id number], [address] [place], [place] [id number], [phone] START: ondansetron (Zofran ODT 4 mg Tab-Dis) [...] 0. PATIENT EDUCATION INFORMATION: Instructions: Nausea, Adult, Katm-yh-Orne; Abdominal Pain, Adult Follow up: With: Address: When: Juliana Barton [address], [address] [place] [phone] Business (1) In 3 days 12/31/2023 Comments: Call for diagnosis based follow up With: Address: When: SHAWNA HEALY [address] [place] [address] [place] [phone] Business (1) In 3 days 12/31/2023 Comments: Call for diagnosis based follow up DIAGNOSIS: Diarrhea; Nausea; Pain in the abdomen Normal [facility] ED Note-Physicianon 12-28-19 ED Note-Physician Basic [...] and Complexity of Problems Differential Diagnosis: [] [facility] Data External documents reviewed: [] My [...] day(s), # 28 cap(s), Refills(s) 0, [id number], 160, cm, 12/28/23 10:54:00 EDT, Height/Length Dosing, 81.7, kg, 12/28/23 10:54:00 EDT, Weight Dosing ketorolac, 30 mg = 1 mL, Injection, IV Push, Once, Stop date 12/28/23 12:53:00 EDT, STAT, Start date 12/28/23 12:53:00 EDT, 12/28/23 12:53:00 EDT ondansetron, 4 mg = 1 tab(s), Oral, q8hr, PRN Nausea/Vomiting, # 20 tab(s), Refills(s) 0, [facility] #[id number], 160, cm, 12/28/23 10:54:00 EDT, Height/Length Dosing, [...] 30 tab(s), Refills(s) 0, [facility]: [id number], 160, cm, 12/28/23 10:54:00 EDT, Height/Length Dosing, 81.7, kg, 12/28/23 10:54:00 EDT, Weight Dosing Sodium Chloride 0.9% intravenous solution, 1,000 mL, Soln-IV, IV, Once, Stop date 12/28/23 12:53:00 EDT, STAT, Start date 12/28/23 12:53:00 EDT, Infuse over 61, minute(s) sucralfate, 1 gm = 1 tab(s), Oral, QID, X 7 day(s), # 28 tab(s), Refills(s) 0, [facility]acy: [facility] #[id number], 160, cm, 12/28/23 10:54:00 EDT, Height/Length Dosing, 81.7, kg, 12/28/23 10:54:00 EDT, Weight Dosing CT Abdomen/Pelvis w/ Contrast Medications Administered Given ketorola (more content not included)... Normal [facility] Comment on above: Result Comment: Elec [...] ? Low-calorie sports drinks. ? Eat bland, mxsd-cv-ewkhwj foods in small amounts as you are able, such as: ? Bananas. ? Applesauce. ? Rice. ? Low-fat (lean) meats. ? [place]. ? Crackers. ? Avoid drinking fluids that have a lot of sugar or caffeine in them. This includes energy drinks, sports drinks, and soda. ? Avoid alcohol. ? Avoid spicy or fatty foods. General instructions ? Take egrd-nzp-mtkakzz and prescription medicines only as told by [...] cannot use soap and water, use hand government service executive. ? Make sure that everyone in your [...] drink what your doctor tells you. Take fmmi-fqv-cokbfvj and prescription medicines only as told by [...] provider. Document Revised: 12/25/2021 Document Reviewed: 12/25/2021 ElseLeatt Patient Education ? 2022 [employer]. Abdominal Pain, Adult Pain in the abdomen [...] these instructions at home: Medicines ? Take gucc-stf-nozxrst and prescription medicines only as told by your health care provider. ? Do not take a laxative unless told by your health care provider. General instructions ? Watch your condition for any changes. ? Drink enough fluid to keep your urine (more content not included)... Normal [facility] ED Patient Summaryon 024 ED Patient Summary [place] [id number] Patient Discharge Instructions Person Information Name: JACK REA Age: 28 Years Arrival Date: 12/28/2023 10:34:35 Discharge Diagnosis: Diarrhea; Nausea; Pain in the abdomen Primary Care Physician: SHAWNA HEALY CNP Provider Information Primary Provider: Mamta Us M.D. Advanced Manager Of Production:None The exam and treatment you received in the Emergency Department were for an urgent problem and are not intended as complete care. It is important that you follow up with a doctor, nurse practitioner, or physician?s temporary office assistant for ongoing care. If your symptoms [...] Follow-up Instructions: With: Address: When: Juliana Barton [address] [place] [address], [address] [place] [id number] [phone] Business (1) In 3 days 12/31/2023 Comments: Call Dr for diagnosis based follow up With: Address: When: SHAWNA HEALY [address] [facility] [place] [phone] Business (1) In 3 days 12/31/2023 Comments: Call Dr for diagnosis based follow up In the event that this physician does not participate in your insurance network, please consult with your insurance company to find a nearby participating provider. Patient Education Materials: Nausea, Adult, Zart-jl-Jqwr; Abdominal Pain, Adult A MESSAGE TO ALL PATIENTS REGARDING OPIOIDS PRESCRIPTION OPIOIDS: WHAT YOU NEED TO KNOW Prescription opioids can be used to help relieve acaoxfsd-nj-sncafy pain and are often prescribed following a [...] ? Visi (more content not included)... Normal [facility] HEMATOLOGYOrdered By: SYSTEM SYSTEM on 12-28-2023 [...] 12-28-2023 Albumin [Mass/Vol] 4.4 g/dL Normal 3.3-5.0 [facility] Comment on above: Performed By: #### 2 [id number] #### [facility] [address] [place] [address] Albumin/Globulin (S) [Mass conc ratio] 2.1 Normal 1.1-2.2 [facility] Comment on above: Performed By: #### 2 [id number] #### [facility] [address] [place] [address] ALP [Catalytic activity/Vol] 80 Int._Unit/L Normal 21-98 [facility] Comment on above: Performed By: #### 2 [id number] #### [facility] [address] [place] [address] ALT No additional P-5'-P [Catalytic activity/Vol] 20 Int._Unit/L Normal 6-46 [facility] Comment on above: Performed By: #### 2 344001 #### [facility] [address] [place] [address] AST [Catalytic activity/Vol] 20 Int._Unit/L Normal 5-43 [facility] Comment on above: Performed By: #### 2 [id number] #### [facility] [address] [place] [address] Bilirubin [Mass/Vol] 0.7 mg/dL Normal 0.0-1.1 [facility] Comment on above: Performed By: #### 2 [id number] #### [facility] [address] [place] [address] Bilirubin.direct [Mass/Vol] 0.1 mg/dL Normal 0.0-0.4 [facility] Comment on above: Performed By: #### 2 051477 #### [facility] [address] [place] [address] Bilirubin.indirect [Mass or moles/Vol] 0.6 mg/dL Normal 0.1-0.9 [facility] Comment on above: Performed By: #### 2 527898 #### [facility] [address] [place] [address] Globulin (S) [Mass/Vol] 2.1 g/dL Normal 1.4-4.0 [facility] Comment on above: Performed By: #### 2 480225 #### [facility] [address] [place] [address] Protein [Mass/Vol] 6.5 g/dL Normal 6.0-7.8 [facility] Comment on above: Performed By: #### 2 814167 #### [facility] [address] [place] [address] Lipase Levelon 12-28-2023 Lipase [Catalytic activity/Vol] 31 U/L Normal 13-58 [facility] Comment on above: Performed By: #### 2 [id number] #### [facility] [address] [place] [address] U BetaHcg QualOrdered By: Fredis Pineda on 12-28-2023 HCG.beta subunit (U) [Moles/Vol] Negative Normal [facility] Comment on above: Performed By: #### 2 [id number] #### [facility] [address] [place] [address] UA with Cult RflxOrdered By: SYSTEM SYSTEM on 12-28-2023 Bilirubin Ql (U) Negative Normal Negative FT UA Auto SS Comment on above: Performed By: #### 4 [id number] #### [facility] [address] [place] [address] Glucose Ql (U) Negative Normal Negative FT UA Au to SS Comment on above: Performed By: #### 4 [id number] #### [facility] [address] [place] [address] Hemoglobin Auto test strip (U) [Mass/Vol] Negative Normal Negative FT UA Aut o SS Comment on above: Performed By: #### 4 [id number] #### [facility] [address] [place] [address] Ketones Auto test strip Ql (U) Negative Normal Negative FT UA Auto SS Comment on above: Performed By: #### 4 [id number] #### [facility] [address] [place] [address] Leukocyte esterase Auto test strip Ql (U) Negative Normal Negative FT UA Auto SS Comment on above: Performed By: #### 4 [id number] #### [facility] [address] [place] [address] Nitrite Auto test strip Ql (U) Negative Normal Negative [facility] UA Auto SS Comment on above: Performed By: #### 4 [id number] #### [facility] [address] [place] [address] Protein Ql (U) Negative Normal Negative FT UA Au to SS Comment on above: Performed By: #### 4 [id number] #### [facility] [address] [place] [address] Urobilinogen (U) [Mass/Vol] Negative Normal Negative FT UA Auto SS Comment on above: Performed By: #### 4 [id number] #### [facility] [address] [place] [address] UA with Cult Rflxon 12-28-19 Clarity (U) Clear Normal Clear [facility] Comment on above: Performed By: #### 4 [id number] #### [facility] [address] [place] [address] Color (U) Colorless Abnormal Yellow [facility] Comment on above: Result Comment: Micr oscopic readings are only performed on those samples that meet specific criteria set forth by [facility]. Performed By: #### 4 [id number] #### [facility] [address] [place], [place] [address] pH (U) 7.0 [pH] Invalid Interpretation Code 5.0-9.0 [facility] Comment on above: Performed By: #### 4 [id number] #### [facility] [address] [place], [place] [address] Specific gravity (U) [Rel density] 1.002 Invalid Interpretation Code 1.005-1.030 [facility] Comment on above: Performed By: #### 4 [id number] #### [facility] [address] [place], [place] [address] Type of Urine collection method Clean Catch Normal [facility] Comment on above: Performed By: #### 4 [id number] #### [facility] [address] [place] [address] URINALYSISOrdered By: SYSTEM SYSTEM on 12-28-2023 Clarity (U) Clear (12/28/23 11:00 AM) Normal Clear [facility] UA Auto SS Color (U) Colorless 1 *ABN* (12/28/23 11:00 AM) Invalid Interpretation Code Yellow FT UA Auto SS Comment on above: Interpretive Data: M icroscopic readings are only performed on those samples that meet specific criteria set forth by [facility]. pH (U) 7.0 *NA* (12/28/23 11:00 AM) Invalid Interpretation Code 5.0 - 9.0 [facility] UA Auto SS Specific gravity (U) [Rel density] 1.002 *NA* (12/28/23 11:00 AM) Invalid Interpretation Code 1.005 - 1.030 [facility] UA Auto SS URINALYSISOrdered By: Amy Sanchez on 12-28-2023 UA Spec Desc Clean Catch (12/28/23 11:00 AM) Normal [facility] UA Auto SS eGFRon 12-28-2023 eGFR 119 mL/min/1.73 m2 Normal >=59 [facility] Comment on above: Order Comment: Order added by Discern Expert. Performed By: #### 1 [id number] #### [facility] [address] [place] [address] C Urineon 02-12-2023 Bacteria identified Cx Nom (U) Microbiology PROCEDURE: Urine Culture [R1] SOURCE: U CleanCatch BODY SITE: COLLECTED DATE/TIME: 02/10/2023 01:39 EDT RECEIVED DATE/TIME: 02/10/2023 03:46 EDT START DATE/TIME: 02/10/2023 03:46 EDT FREE TEXT SOURCE: Shivam Alvarez DO, DO, Shivam James FINAL REPORTS Final Report [] Verified Date/Time: 02/12/2023 07:59 EDT 1,000 cfu/ml Mixed skin contaminants Performing Locations R1: [facility] at: [facility], [address] [place] [address], [address] , , Normal [facility] Comment on above: Performed By: #### 1 [id number], [id number] #### [facility] [address] [place] [address] Auto Diffon 02-10-2023 Basophils/100 WBC (Bld) 0.6 % Normal 0.0-2.0 [facility] Comment on above: Order Comment: Order Added by Discern Expert. Performed By: #### 2 476873, 7211467, 95020027, 7795283, 4749660, 0835000 #### [facility] [address] [place] [address] Basophils/Leukocytes Auto (Bld) [Pure # fraction] 0.1 E9/L Normal 0.0-0.2 [facility] Comment on above: Order Comment: Order Added by Discern Expert. Performed By: #### 2 534453, 9350846, 23645456, 4556651, 1892284, 8091671 #### [facility] [address] [place] [address] Eosinophils/100 WBC (Bld) 3.5 % Normal 0.0-8.0 [facility] Comment on above: Order Comment: Order Added by Discern Expert. Performed By: #### 2 447165, 6235838, 57773626, 5203929, 9727732, 4449150 #### [facility] [address] [place] [address] Eosinophils/Leukocytes Auto (Bld) [Pure # fraction] 0.4 E9/L Normal 0.0-0.5 [facility] Comment on above: Order Comment: Order Added by Discern Expert. Performed By: #### 2 494238, 1407804, 32914809, 5864459, 4948945, 9644878 #### [facility] [address] [place] [address] Lymphocytes/100 WBC (Bld) 27.3 % Normal 14.0-50.0 [facility] Comment on above: Order Comment: Order Added by Discern Expert. Performed By: #### 2 395290, 9872702, 41458382, 7160340, 4037152, 1973339 #### [facility] [address] [place] [address] Lymphocytes/Leukocytes Auto (Bld) [Pure # fraction] 2.9 E9/L Normal 1.0-4.0 [facility] Comment on above: Order Comment: Order Added by Discern Expert. Performed By: #### 2 104620, 9347115, 49490115, 8401137, 9403603, 9297578 #### [facility] [address] [place] [address] Monocytes/100 WBC (Bld) 6.7 % Normal 4.0-14.0 [facility] Comment on above: Order Comment: Order Added by Discern Expert. Performed By: #### 2 412147, 0430391, 39276863, 6960068, 5336220, 2999175 #### [facility] [address] [place] [address] Monocytes/Leukocytes Auto (Bld) [Pure # fraction] 0.7 E9/L Normal 0.2-1.0 [facility] Comment on above: Order Comment: Order Added by Discern Expert. Performed By: #### 2 761635, 5678580, 24235920, 0278071, 0013619, 0676323 #### [facility] [address] [place] [address] Neutrophils/100 WBC (Bld) 61.9 % Normal 36.0-75.0 [facility] Comment on above: Order Comment: Order Added by Discern Expert. Performed By: #### 2 913845, 6571219, 75977713, 5836439, 3888655, 2650329 #### [facility] [address] [place] [address] Neutrophils/Leukocytes Auto (Bld) [Pure # fraction] 6.7 E9/L Normal 2.0-7.5 [facility] Comment on above: Order Comment: Order Added by Discern Expert. Performed By: #### 2 297871, 9831489, 30815159, 0029384, 4869212, 2441937 #### [facility] [address] [place] [address] B hCG Qualon 02-10-2023 Beta hCG Ql Negative Normal [facility] Comment on above: Performed By: #### 2 [id number] #### [facility] [address] [place] [address] BMPon 02-10-2023 Creatinine [Mass/Vol] 0.7 mg/dL Normal 0.5-1.3 [facility] Comment on above: Performed By: #### 2 535025, 7494879, 24167863, 0259405, 8103199, 7818360 #### [facility] [address] [place] [address] Urea nitrogen [Mass/Vol] 9 mg/dL Normal 5-21 [facility] Comment on above: Performed By: #### 2 883162, 7762229, 35611795, 9585905, 5285303, 8003682 #### [facility] [address] [place] [address] Urea nitrogen/Creatinine [Mass ratio] 13 No Units Normal 10-20 [facility] Comment on above: Performed By: #### 2 333518, 7115298, 33255740, 2070971, 8218100, 7825336 #### [facility] [address] [place] [address] Anion gap [Moles/Vol] 11 mmol/L Normal 6-16 [facility] Comment on above: Performed By: #### 2 411430, 1981921, 77866196, 8463250, 1418778, 0803672 #### [facility] [address] [place] [address] Calcium [Mass/Vol] 8.8 mg/dL Low 8.9-11.1 [facility] Comment on above: Performed By: #### 2 939741, 0999079, 60112688, 0261198, 5539497, 0431875 #### [facility] [address] [place] [address] Chloride [Moles/Vol] 107 mmol/L Normal 101-111 [facility] Comment on above: Performed By: #### 2 115012, 5396868, 23123911, 0478356, 5781868, 8358320 #### [facility] [address] [place] [address] CO2 [Moles/Vol] 24 mmol/L Normal 21-31 [facility] Comment on above: Performed By: #### 2 928896, 5050045, 99120784, 3465330, 4878547, 7523964 #### [facility] [address] [place] [address] Glucose [Mass/Vol] 96 mg/dL Normal 55-199 [facility] Comment on above: Result Comment: If t his glucose result represents a fasting glucose, interpretation should refer to the following reference range: 55-99 mg/dL Performed By: #### 2 513863, 4277461, 74059245, 3898290, 1484737, 3133267 #### [facility] [address] [place] [address] Potassium [Moles/Vol] 4.0 mmol/L Normal 3.5-5.3 [facility] Comment on above: Performed By: #### 2 481910, 7718319, 48191531, 7906042, 3928167, 1991732 #### [facility] [address] [place] [address] Sodium [Moles/Vol] 138 mmol/L Normal 135-145 [facility] Comment on above: Performed By: #### 2 052659, 8995657, 40885332, 7044877, 5015485, 5730425 #### [facility] [address] [place] [address] CBC w/ Auto Diffon Erythrocyte distribution width (RBC) [Ratio] 13.1 % Normal 10.9-14.2 [facility] Comment on above: Performed By: #### 2 979160, 2117427, 25414037, 0511944, 5018240, 8758942 #### [facility] [address] [place] [address] Hematocrit (Bld) [Volume fraction] 43.3 % Normal 34.0-46.0 [facility] Comment on above: Performed By: #### 2 868754, 3253018, 96462926, 3011304, 6269686, 0038455 #### [facility] [address] [place] [address] Hemoglobin (Bld) [Mass/Vol] 15.0 g/dL Normal 12.0-16.0 [facility] Comment on above: Performed By: #### 2 052458, 6748652, 29181759, 2905784, 4827227, 9324403 #### [facility] [address] [place] [address] MCH (RBC) [Entitic mass] 31.1 pg Normal 27.0-34.0 [facility] Comment on above: Performed By: #### 2 784232, 5745973, 79437076, 2197705, 7664871, 0538315 #### [facility] [address] [place] [address] MCHC (RBC) [Mass/Vol] 34.7 g/dL Normal 31.4-36.0 [facility] Comment on above: Performed By: #### 2 682138, 7550556, 60390443, 9776098, 0867537, 3236812 #### [facility] [address] [place] [address] MCV (RBC) [Entitic vol] 89.6 fL Normal 80.0-100.0 [facility] Comment on above: Performed By: #### 2 143795, 5570984, 12791682, 5753535, 4070775, 0746054 #### [facility] [address] [place] [address] Platelet mean volume (Bld) [Entitic vol] 8.7 fL Normal 6.4-10.8 [facility] Comment on above: Performed By: #### 2 461248, 1202487, 71648356, 2012453, 7825769, 1899398 #### [facility] [address] [place] [address] Platelets (Bld) [#/Vol] 204.0 E9/L Normal 150.0-500.0 [facility] Comment on above: Performed By: #### 2 737961, 1771143, 80061241, 3961950, 8411793, 4237116 #### [facility] [address] [place] [address] RBC (Bld) [#/Vol] 4.8 E12/L Normal 4.3-5.9 [facility] Comment on above: Performed By: #### 2 822627, 6048342, 26433619, 7549324, 0005600, 3663613 #### [facility] [address] [place] [address] WBC corrected for nucl RBC Auto (Bld) [#/Vol] 10.8 E9/L Normal 4.0-11.0 [facility] Comment on above: Performed By: #### 2 721440, 4954945, 41092915, 3862138, 9101071, 0753399 #### [facility] [address] [place] [address] CHEMISTRYOrdered By: SYSTEM SYSTEM on 02-10-2023 Albumin [...] 121 mL/min/1.73 m2 Normal >=59mL/min/1 .73 m2 [facility] Chem S Globulin (S) [Mass/Vol] 2.9 g/dL [...] mmol/L Normal 6 - 16 mEq/L F [facility] Remisol Calcium [Mass/Vol] 8.8 mg/dL Low 8.9 [...] Oral contrast amount in ml's: 0 Normal [facility] Consent for Treatmenton 02-01 Consent for Treatment [id number] #[id number]:127 Normal [facility] Discharge Instructionson Discharge Instructions [id number]#[id number]:127 Normal [facility] ED Clinical Summaryon 2022 ED Clinical Summary [place] [id number] ED Clinical Summary Person Information Name: JACK REA [place] Age: 27 Years : 1995 Sex: Female Language: Greek PCP: NONE, XXXX Marital Status: Phone: [phone] Visit Id: Visit Reason: Vomiting; Nausea; Flank [...] 02/10/2023 03:21:57 02/10/2023 03:21:57 02/10/2023 03:21:57 ADDRESS: [address] [facility] [id number] PHYS DOC NOTES: MEDICAL INFORMATION: Prescriptions Given: New Medications [id number], [address] [place], [place] [id number], [phone] naproxen (naproxen 500 mg Tab) 1 Tablets [...] With: Address: When: Lev [address], [address], [facility] [address] [place] [address] Business (1) In 3 days 02/13/2023 Comments: Strain urine. Take pain medication as prescribed. Follow-up with urology DIAGNOSIS: Acute right flank pain Normal [facility] ED Note-Physicianon 02-11-20 ED Note-Physician Basic [...] 8-10, # 4 cap(s), Refills(s) 0, Pharmacy: [facility] #[id number], 160, cm, 02/10/23 1:25:00 EDT, Height/Length Dosing, 81.4, kg, 02/10/23 1:25:00 EDT, Weight Dosing Orders: ketorolac, 15 mg = 1 mL, Injection, IV Push, Once, Stop date 02/10/23 1:46:00 EDT, STAT, Start date 02/10/23 1:46:00 EDT, 02/10/23 1:46:00 EDT naproxen, 500 mg = 1 tab(s), Oral, BID, PRN for pain, # 20 tab(s), Refills(s) 0, Pharmacy: [facility] #[id number], 160, cm, 02/10/23 1:25:00 EDT, Height/Length Dosing, 81.4, kg, 02/10/23 1:25:00 EDT, Weight Dosing ondansetron, 4 mg = 1 tab(s), Oral, q8hr, PRN Nausea/Vomiting, # 12 tab(s), Refills(s) 0, [facility]acy: [facility] #[id number], 160, cm, 02/10/23 1:25:00 EDT, Height/Length Dosing, [...] LACKEY In 3 days 02/13/[address] [address] (1) Additional Instructions: Strain urine. Take pain medication as prescribed. Follow-up with urology Patient Education Flank Pain, Adult Problem List/Past Medical History Ongoing Denies Historical No qualifying data Procedure/Surgi (more content not included)... Normal [facility] Comment on above: Result Comment: Elec [...] by your health care provider. ? Take pudw-zeg-vffmzag and prescription medicines only as told by [...] Reviewed: 08/31/2021 Elsevier Patient Education ? 2022 [employer] Normal [facility] ED Patient Summaryon 023 ED Patient Summary [address] [address] Patient Discharge Instructions Person Information Name: JACK REA Age: 27 Years Arrival Date: 02/10/2023 01:16:59 Discharge Diagnosis: Acute right flank pain Primary Care Physician: NONE, XXXX Provider Information Primary Provider: Shivam Alvarez DO Advanced Manager Of Production:None The exam and treatment you received in the Emergency Department were for an urgent problem and are not intended as complete care. It is important that you follow up with a doctor, nurse practitioner, or physician?s temporary office assistant for ongoing care. If your symptoms [...] Follow-up Instructions: With: Address: When: Lev LACKEY [address] [place] [address], [address], [place] [id number] Business (1) In 3 days 02/13/2023 Comments: [...] opioids can be used to help relieve simaheyt-ym-jcamij pain and are often prescribed following a [...] be struggling with addiction, tell your health farm or ranch animal caretaker and ask for guidance (more content not included)... Normal [facility] HEMATOLOGYOrdered By: SYSTEM SYSTEM on 02-10-2023 [...] 43.3 % Normal 34.0 - 46.0 % FT HemeAutoSS Hemoglobin (Bld) [Mass/Vol] 15.0 g/dL Normal [...] E9/L Normal 150. 0 - 500.0 E9/L FT HemeAutoSS RBC (Bld) [#/Vol] 4.8 E12/L Normal 4.3 - 5.9 E12/L FT HemeAutoSS WBC corrected for nucl RBC Auto (Bld) [#/Vol] 10.8 E9/L Normal 4.0 - 11.0 E9/L FT HemeAutoSS Hep Func Panelon 02-10-2023 Albumin [Mass/Vol] 4.0 g/dL Normal 3.3-5.0 [facility] Comment on above: Performed By: #### 2 [id number], 5244480, 76076808, 0649903, 7634413, 5898084 #### [facility] [address] [place] [address] Albumin/Globulin (S) [Mass conc ratio] 1.4 Normal 1.1-2.2 [facility] Comment on above: Performed By: #### 2 800312, 9928168, 61698935, 1551195, 0820014, 9306153 #### [facility] [address] [place] [address] ALP [Catalytic activity/Vol] 65 Int._Unit/L Normal 21-98 [facility] Comment on above: Performed By: #### 2 800262, 6189493, 04537297, 9481005, 0474897, 7115725 #### [facility] [address] [place] [address] ALT No additional P-5'-P [Catalytic activity/Vol] 15 Int._Unit/L Normal 6-46 [facility] Comment on above: Performed By: #### 2 339235, 1003400, 42646987, 7750079, 1739617, 0685207 #### [facility] [address] [place] [id number] AST [Catalytic activity/Vol] 18 Int._Unit/L Normal 5-43 [facility] Comment on above: Performed By: #### 2 612892, 9282319, 71633693, 6125892, 3473365, 1123778 #### [facility] [address] [place] [address] Bilirubin [Mass/Vol] 0.3 mg/dL Normal 0.0-1.1 [facility] Comment on above: Performed By: #### 2 167897, 0810449, 07873678, 9234354, 9363540, 1381138 #### [facility] [address] [place] [id number] Bilirubin.direct [Mass/Vol] 0.1 mg/dL Normal 0.1-0.4 [facility] Comment on above: Performed By: #### 2 789928, 2163868, 28611374, 5336208, 1592041, 3975550 #### [facility] [address] [place] [address] Bilirubin.indirect [Mass or moles/Vol] 0.2 mg/dL Normal 0.1-0.9 [facility] Comment on above: Performed By: #### 2 976257, 1578846, 01341426, 8344283, 7656454, 2008666 #### [facility] [address] [place] [address] Globulin (S) [Mass/Vol] 2.9 g/dL Normal 1.4-4.0 [facility] Comment on above: Performed By: #### 2 067467, 2437328, 24102863, 1700085, 6388144, 0499283 #### [facility] [address] [place] [address] Protein [Mass/Vol] 6.9 g/dL Normal 6.0-7.8 [facility] Comment on above: Performed By: #### 2 633137, 6320335, 04788004, 5256997, 7650260, 3516776 #### [facility] [address] [place] [address] Lipase Levelon 02-10-2023 Lipase [Catalytic activity/Vol] 40 U/L Normal 13-58 [facility] Comment on above: Performed By: #### 2 512900, 3178966, 15019321, 0409626, 8935495, 7427499 #### [facility] [address] [place] [address] RAD - Preliminary Cat Scan R eporton 02-10-2023 RAD - Preliminary Cat Scan Report [id number] Normal [facility] SEROLOGYOrdered By: Milka Bowen on 02-10-2023 Beta hCG Ql Negative (02/10/23 1:39 AM) Normal [facility] Man Sero UA With Cult Reflexon 2022 Bacteria LM Ql (Urine sed) TRACE Normal Trace [facility] Comment on above: Performed By: #### 1 [id number], 2521216 #### [facility] [address] [place] [address] Bilirubin Ql (U) Negative Normal Negative [facility] Comment on above: Performed By: #### 1 6705246, 3901926 #### [facility] [address] [place] [address] Clarity (U) CLEAR Normal Clear [facility] Comment on above: Performed By: #### 1 7649338, 8044383 #### [facility] [address] [place] [address] Color (U) YELLOW Normal Yellow [facility] Comment on above: Performed By: #### 1 2808510, 8954618 #### [facility] [address] [place] [address] Epithelial cells.squamous LM.HPF (Urine sed) [#/Area] 3-4 Normal 0-2 [facility] Comment on above: Performed By: #### 1 3768532, 2385885 #### [facility] [address] [place] [address] Glucose Test strip (U) [Mass/Vol] Negative Normal Negative [facility] Comment on above: Performed By: #### 1 1583180, 8894475 #### [facility] [address] [place] [address] Hemoglobin Ql (U) Negative Normal Negative [facility] Comment on above: Performed By: #### 1 4505473, 4107102 #### [facility] [address] [place] [address] Ketones (U) [Mass/Vol] Negative Normal Negative [facility] Comment on above: Performed By: #### 1 8150241, 3408610 #### [facility] [address] [place] [address] Whittier.plasma/Whittier.R BC (Bld) [Mass ratio] 0-3 Normal 0-3 [facility] Comment on above: Performed By: #### 1 7466206, 5526731 #### [facility] [address] [place] [address] Mucus Ql (Urine sed) TRACE Normal Fish [facility] Comment on above: Performed By: #### 1 0675534, 0939361 #### [facility] [address] [place] [address] Nitrite Ql (U) Negative Normal Negative [facility] Comment on above: Performed By: #### 1 9455599, 6960348 #### [facility] [address] [place] [address] pH (U) 6.5 [pH] Invalid Interpretation Code 5.0-9.0 [facility] Comment on above: Performed By: #### 1 0569539, 3267439 #### [facility] [address] [place] [address] Protein (U) [Mass/Vol] Negative Normal Negative [facility] Comment on above: Performed By: #### 1 8479051, 0006050 #### [facility] [address] [place] [id number] Specific gravity (U) [Rel density] 1.010 Invalid Interpretation Code 1.005-1.030 [facility] Comment on above: Performed By: #### 1 1242528, 5471074 #### [facility] [address] [place] [address] Type of Urine collection method Clean Catch Normal [facility] Comment on above: Performed By: #### 1 2643894, 2900304 #### [facility] [address] [place] [address] Urobilinogen Qn (U) 0.2 {Adam'U}/dL Normal 0.0-1.0 [facility] Comment on above: Performed By: #### 1 8131846, 0006039 #### [facility] [address] [place] [address] WBC Auto Ql (U) 1+ Abnormal Negative [facility] Comment on above: Performed By: #### 1 2528633, 7175448 #### [facility] [address] [place], [place] [address] WBC LM.HPF (Urine sed) [#/Area] 0-5 Normal 0-5 [facility] Comment on above: Performed By: #### 1 0396573, 4549500 #### [facility] [address] [place], [place] [address] URINALYSISOrdered By: Pito Bowen on 02-10-2023 Bacteria LM Ql (Urine sed) Trace /HPF Normal Trace/HPF [facility] UA Auto SS Bilirubin Ql (U) Negative (02/10/23 1:39 AM) Normal Negative [facility] UA Auto SS Clarity (U) Clear (02/10/23 [...] AM) Normal Negative [facility] UA Auto SS Whittier.plasma/Whittier.R BC (Bld) [Mass ratio] 0-3 /HPF Normal [...] [facility] UA Auto SS Urobilinogen Qn (U) 0.5137764 {Adam'U}/dL Normal 0.0 - 1.0 EU/dL [facility] UA Auto SS WBC Auto Ql (U) 1+ *ABN* (02/10/23 1:39 AM) Invalid Interpretation Code Negative [facility] UA Auto SS WBC LM.HPF (Urine sed) [#/Area] 0-5 /HPF Normal 0-5/HPF [facility] UA Auto SS eGFRon 02-10-2023 GFR/1.73 sq M.predicted among non-blacks MDRD (S/P/Bld) [Vol rate/Area] 121 mL/min/1.73 m2 Normal >=59 [facility] Comment on above: Order Comment: Order added by Discern Expert. Result Comment: [employer] Crimper wilmar kidney disease could be indicated at eGFR's of less than 60 mL/min/1.73m2. Kidney failure is indicated at less than 15 mL/min/1.73m2. Performed By: #### 2 349293, 7249818, [id number], 6957008, 2589923, 9139502 #### [facility] [address] [place] [address] PAP ACOG PANEL 2: 21 to 29on 09-20-2021 . . [facility] Comment on above: Performed By: #### 4 [id number] #### [facility] [address] [place] [address] Dr. Maury Bradley Age Gdln ACOG Testing - [facility] Comment on above: Performed By: #### 4 456571 #### [facility] [address] [place] [address] Dr. Maury Bradley DIAGNOSIS: Comment [facility] Comment on above: Result Comment: NEGA TIVE FOR INTRAEPITHELIAL LESION OR MALIGNANCY. Performed By: #### 4 [id number] #### [facility] [address] [place] [address] Dr. Maury Bradley Methodology: Comment [facility] Comment on above: Result Comment: This liquid based ThinPrep(R) pap test was screened with the use of an image guided system. Performed By: #### 4 [id number] #### [facility] [address] [place] [address] Dr. Maury Bradley Note: Comment [facility] Comment on above: Result Comment: The Pap smear is a screening test designed to aid in the detection of premalignant and malignant conditions of the uterine cervix. It is not a diagnostic procedure and should not be used as the sole means of detecting cervical cancer. Both false-positive and false-negative reports do occur. . Performed By: #### 4 [id number] #### [facility] [address] [place] [address] Dr. Maury Bradley Performed by: Comment [facility] Comment on above: Result Comment: Jose Daniel Tracey, Garden Implement Mechanic (ASCP) Performed By: #### 4 [id number] #### [facility] [address] [place] [address] [address] Maury Bradley Reflex Criteria: Comment Normal [facility] Comment on above: Result Comment: The HPV DNA reflex criteria were not met with this specimen result therefore, no HPV testing was performed. . Performed By: #### 4 091911 #### [facility] [address] [place] [address] [address] Maury Bradley Specimen adequacy: Comment Normal [facility] Comment on above: Result Comment: Sati sfactory for evaluation. Endocervical and/or squamous metaplastic cells (endocervical component) are present. Performed By: #### 4 [id number] #### [facility] [address] [address] [address] Maury Bradley Vital Signs Date Time Vital Sign Value Performing Clinician Facility 05-18-2024 12:21-0500 Diastolic blood pressure 73 mm[Hg] Shawna Easterwood 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 Work Phone: [facility] 05-18-2024 12:21-0500 Heart rate 77 /min [facility] 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 Work Phone: [facility] 05-18-2024 12:21-0500 Respiratory rate 16 /min [facility] 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 Work Phone: [facility] 05-18-2024 12:21-0500 SaO2% (BldA) [Mass fraction] 97 % Kotlik Easterwood 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 Work Phone: [facility] 05-18-2024 12:21-0500 Systolic blood pressure 117 mm[Hg] Shawna Easterwood 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 Work Phone: [facility] 05-18-2024 10:32-0500 Body height 160.02 cm [facility] 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 Work Phone: [facility] 05-18-2024 10:32-0500 Body weight 79 kg Shawna Easterwood 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 Work Phone: [facility] 05-18-2024 10:31-0500 Body temperature 97.9 [degF] Shawna Easterwood 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 Work Phone: [facility] 05-10-2024 21:00-0500 Diastolic blood pressure 80 mm[Hg] Shawna Easterwood 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 Work Phone: [facility] 05-10-2024 21:00-0500 Heart rate 73 /min Shawna Quangerwood 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 Work Phone: [facility] 05-10-2024 21:00-0500 Respiratory rate 18 /min Shawna Easterwood 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 Work Phone: [facility] 05-10-2024 21:00-0500 SaO2% (BldA) [Mass fraction] 95 % Shawna Quangerwood 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 Work Phone: [facility] 05-10-2024 21:00-0500 Systolic blood pressure 122 mm[Hg] Shawna Easterwood 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 Work Phone: [facility] 05-10-2024 18:51-0500 Body height 160.02 cm Shawna Easterwood 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 Work Phone: [facility] 05-10-2024 18:51-0500 Body temperature 98.5 [degF] Shawna Easterwood 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 Work Phone: [facility] 05-10-2024 18:51-0500 Body weight 80.5 kg Shawna Easterwood 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 Work Phone: [facility] 05-09-2024 15:42-0500 Body mass index (BMI) [Ratio] 30.15 kg/m2 Brayan Keegan DO Work Phone: [facility] 05-09-2024 15:42-0500 Body weight 80.92 kg Brayan Keegan DO Work Phone: [facility] 05-09-2024 15:42-0500 Diastolic blood pressure 70 mm[Hg] Brayan Keegan DO Work Phone: [facility] 05-09-2024 15:42-0500 Systolic blood pressure 110 mm[Hg] Brayan Keegan DO Work Phone: [facility] 05-08-2024 11:56-0500 Body mass index (BMI) [Ratio] 31.5 kg/m2 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 Shawna Easterwood Work Phone: [facility] 05-08-2024 11:56-0500 Body temperature 97.5 [degF] 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 Shawna Easterwood Work Phone: [facility] 05-08-2024 11:56-0500 Body weight 80.73 kg 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 Shawna Easterwood Work Phone: [facility] 05-08-2024 11:56-0500 Diastolic blood pressure 84 mm[Hg] 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 Shawna Easterwood Work Phone: [facility] 05-08-2024 11:56-0500 Heart rate 86 /min 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 Shawna Easterwood Work Phone: [facility] 05-08-2024 11:56-0500 SaO2% (BldA) [Mass fraction] 98 % 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 Shawna Easterwood Work Phone: [facility] 05-08-2024 11:56-0500 Systolic blood pressure 126 mm[Hg] 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 Shawna Easterwood Work Phone: [facility] 05-08-2024 11:54-0500 Body height 160.02 cm 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 Shawna Easterwood Work Phone: [facility] 05-08-2024 11:54-0500 Respiratory rate 20 /min 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 Shawna Easterwood Work Phone: [facility] 05-06-2024 00:15-0400 Diastolic blood pressure 74 mm[Hg] Darwin Edie [facility] 05-06-2024 00:15-0400 Heart rate 72 /min Darwin Edie [facility] 05-06-2024 00:15-0400 Mean blood pressure 87 mm[Hg] Darwin Edie [facility] 05-06-2024 00:15-0400 Nursing Progress Note Reason Other: iv left in place for outpt infusion. pt arrived with iv in place. Darwin Edie [facility] 05-06-2024 00:15-0400 Respiratory rate 20 /min Darwin Edie [facility] 05-06-2024 00:15-0400 SaO2% (BldA) [Mass fraction] 97 % Darwin Edie [facility] 05-06-2024 00:15-0400 Systolic blood pressure 114 mm[Hg] Darwin Edie [facility] 05-05-2024 23:15-0400 Diastolic blood pressure 75 mm[Hg] Darwin Edie [facility] 05-05-2024 23:15-0400 Heart rate 67 /min Darwin Edie [facility] 05-05-2024 23:15-0400 Mean blood pressure 88 mm[Hg] Darwin Edie [facility] 05-05-2024 23:15-0400 Respiratory rate 20 /min Darwin Edie [facility] 05-05-2024 23:15-0400 SaO2% (BldA) [Mass fraction] 96 % Darwin Edie [facility] 05-05-2024 23:15-0400 Systolic blood pressure 114 mm[Hg] Darwin Edie [facility] 05-05-2024 22:39-0400 Diastolic blood pressure 78 mm[Hg] Darwin Edie [facility] 05-05-2024 22:39-0400 Heart rate 59 /min Darwin Edie [facility] 05-05-2024 22:39-0400 Mean blood pressure 84 mm[Hg] Darwin Edie [facility] 05-05-2024 22:39-0400 Nursing Progress Note Reason Other: states headache is better. still slightly dizzy Darwin Edie [facility] 05-05-2024 22:39-0400 Respiratory rate 19 /min Darwin Edie [facility] 05-05-2024 22:39-0400 SaO2% (BldA) [Mass fraction] 97 % Darwin Edie [facility] 05-05-2024 22:39-0400 Systolic blood pressure 95 mm[Hg] Darwin Edie [facility] 05-05-2024 21:02-0400 Body temperature 97.7 [degF] Darwin Edie [facility] 05-05-2024 21:02-0400 Heart rate 91 /min Darwin Edie [facility] 05-05-2024 21:02-0400 Respiratory rate 16 /min Darwin Eide [facility] 05-02-2024 22:41-0400 Diastolic blood pressure 76 mm[Hg] Kaylinn Dokken [facility] 05-02-2024 22:41-0400 Heart rate 86 /min Kaylinn Dokken [facility] 05-02-2024 22:41-0400 Mean blood pressure 93 mm[Hg] Kaylinn Dokken [facility] 05-02-2024 22:41-0400 Nursing Progress Note Reason Other: taking ice chips Kaylinn Dokken [facility] 05-02-2024 22:41-0400 SaO2% (BldA) [Mass fraction] 98 % Kaylinn Dokken [facility] 05-02-2024 22:41-0400 Systolic blood pressure 126 mm[Hg] Kaylinn Dokken [facility] 05-02-2024 22:02-0400 Diastolic blood pressure 73 mm[Hg] Kaylinn Dokken [facility] 05-02-2024 22:02-0400 Heart rate 78 /min Kaylinn Dokken [facility] 05-02-2024 22:02-0400 Mean blood pressure 90 mm[Hg] Kaylinn Dokken [facility] 05-02-2024 22:02-0400 Nursing Progress Note Reason Other: complains of nausea and ppain 02/10 Kaylinn Dokken [facility] 05-02-2024 22:02-0400 SaO2% (BldA) [Mass fraction] 98 % Kaylinn Dokken [facility] 05-02-2024 22:02-0400 Systolic blood pressure 125 mm[Hg] Kaylinn Dokken [facility] 05-02-2024 21:00-0400 Diastolic blood pressure 77 mm[Hg] Kaylinn Dokken [facility] 05-02-2024 21:00-0400 Heart rate 63 /min Fredisylinn Dokken [facility] 05-02-2024 21:00-0400 Mean blood pressure 92 mm[Hg] Fredisylinn Dokken [facility] 05-02-2024 21:00-0400 Systolic blood pressure 122 mm[Hg] Fredisylinn Dokken [facility] 05-02-2024 18:57-0400 Body temperature 98.6 [degF] Fredisylinn Dokken [facility] 05-02-2024 18:57-0400 Heart rate 87 /min Jamesinn Dokken [facility] 05-02-2024 18:57-0400 Respiratory rate 16 /min Belgican Dokken [facility] 05-01-2024 17:15-0400 Body mass index (BMI) [Ratio] 31.43 kg/m2 Dara Aviles CNC SERVICE ENGINEER Work Phone: [facility] 05-01-2024 17:15-0400 Body temperature 97.81 [degF] Daradaisha Aviles CNC SERVICE ENGINEER Work Phone: [facility] 05-01-2024 17:15-0400 Body weight 84.37 kg Dara Aviles CNC SERVICE ENGINEER Work Phone: [facility] 05-01-2024 17:15-0400 Diastolic blood pressure 80 mm[Hg] Daradaisha Aviles CNC SERVICE ENGINEER Work Phone: [facility] 05-01-2024 17:15-0400 Heart rate 88 /min Dara Aviles CNC SERVICE ENGINEER Work Phone: [facility] 05-01-2024 17:15-0400 SaO2% (BldA) [Mass fraction] 98 % Dara Aviles CNC SERVICE ENGINEER Work Phone: [facility] 05-01-2024 17:15-0400 Systolic blood pressure 124 mm[Hg] Dara Aviles CNC SERVICE ENGINEER Work Phone: [facility] 04-17-2024 15:40-0400 Body height 160.02 cm 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 Shawna Easterwood Work Phone: [facility] 04-17-2024 15:40-0400 Body mass index (BMI) [Ratio] 32.8 kg/m2 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 Shawna Easterwood Work Phone: [facility] 04-17-2024 15:40-0400 Body temperature 97.2 [degF] 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 Shawna Easterwood Work Phone: [facility] 04-17-2024 15:40-0400 Body weight 83.91 kg 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 Shawna Easterwood Work Phone: [facility] 04-17-2024 15:40-0400 Diastolic blood pressure 76 mm[Hg] 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 Shawna Easterwood Work Phone: [facility] 04-17-2024 15:40-0400 Heart rate 90 /min 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 Shawna Easterwood Work Phone: [facility] 04-17-2024 15:40-0400 Respiratory rate 20 /min 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 Shawna Easterwood Work Phone: [facility] 04-17-2024 15:40-0400 SaO2% (BldA) [Mass fraction] 98 % 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 Shawna Easterwood Work Phone: [facility] 04-17-2024 15:40-0400 Systolic blood pressure 120 mm[Hg] 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 Shawna Easterwood Work Phone: [facility] 04-05-2024 09:30-0400 Blood Pressure Location Juliana Barton [facility] 04-05-2024 09:30-0400 Diastolic blood pressure 72 mm[Hg] Juliana Barton [facility] 04-05-2024 09:30-0400 Heart rate 78 /min Juliana Barton [facility] 04-05-2024 09:30-0400 Systolic blood pressure 105 mm[Hg] Juliana Barton [facility] 03-19-2024 14:51-0400 Body height 160.02 cm [facility] 03-19-2024 14:51-0400 Body mass index (BMI) [Ratio] 33.5 kg/m2 [facility] 03-19-2024 14:51-0400 Body temperature 98.1 [degF] [facility] 03-19-2024 14:51-0400 Body weight 85.72 kg [facility] 03-19-2024 14:51-0400 Diastolic blood pressure 72 mm[Hg] [facility] 03-19-2024 14:51-0400 Heart rate 64 /min [facility] 03-19-2024 14:51-0400 Respiratory rate 20 /min [facility] 03-19-2024 14:51-0400 SaO2% (BldA) [Mass fraction] 97 % [facility] 03-19-2024 14:51-0400 Systolic blood pressure 118 mm[Hg] [facility] 03-13-2024 15:49-0400 Body height 160.02 cm [facility] 03-13-2024 15:49-0400 Body mass index (BMI) [Ratio] 33.3 kg/m2 [facility] 03-13-2024 15:49-0400 Body temperature 98.2 [degF] [facility] 03-13-2024 15:49-0400 Body weight 85.27 kg [facility] 03-13-2024 15:49-0400 Diastolic blood pressure 80 mm[Hg] [facility] 03-13-2024 15:49-0400 Heart rate 81 /min [facility] 03-13-2024 15:49-0400 Respiratory rate 20 /min [facility] 03-13-2024 15:49-0400 SaO2% (BldA) [Mass fraction] 97 % [facility] 03-13-2024 15:49-0400 Systolic blood pressure 118 mm[Hg] [facility] 01-10-2024 13:25-0400 Blood Pressure Location [employer] [facility] 01-10-2024 13:25-0400 Diastolic blood pressure 80 mm[Hg] [employer] [facility] 01-10-2024 13:25-0400 Heart rate 78 /min [employer] [facility] 01-10-2024 13:25-0400 Respiratory rate 18 /min [employer] [facility] 01-10-2024 13:25-0400 Systolic blood pressure 124 mm[Hg] [employer] [facility] 12-28-2023 15:03-0400 Heart rate 68 /min [facility] 12-28-2023 14:30-0400 Diastolic blood pressure 72 mm[Hg] [facility] 12-28-2023 14:30-0400 Heart rate 68 /min [facility] 12-28-2023 14:30-0400 Mean blood pressure 90 mm[Hg] [facility] 12-28-2023 14:30-0400 Respiratory rate 18 /min [facility] 12-28-2023 14:30-0400 SaO2% (BldA) [Mass fraction] 97 % [facility] 12-28-2023 14:30-0400 Systolic blood pressure 125 mm[Hg] [facility] 12-28-2023 13:30-0400 Diastolic blood pressure 78 mm[Hg] [facility] 12-28-2023 13:30-0400 Mean blood pressure 94 mm[Hg] [facility] 12-28-2023 13:30-0400 Respiratory rate 18 /min [facility] 12-28-2023 13:30-0400 SaO2% (BldA) [Mass fraction] 98 % [facility] 12-28-2023 13:30-0400 Systolic blood pressure 125 mm[Hg] [facility] 12-28-2023 12:40-0400 Diastolic blood pressure 75 mm[Hg] [facility] 12-28-2023 12:40-0400 Heart rate 89 /min [facility] 12-28-2023 12:40-0400 Mean blood pressure 94 mm[Hg] [facility] 12-28-2023 12:40-0400 Respiratory rate 20 /min [facility] 12-28-2023 12:40-0400 Systolic blood pressure 133 mm[Hg] [facility] 12-28-2023 10:47-0400 Body temperature 98.42 [degF] [facility] 12-28-2023 10:47-0400 Heart rate 95 /min [facility] 11-29-2023 13:03-0400 Body height 160.02 cm [facility] 11-29-2023 13:03-0400 Body mass index (BMI) [Ratio] 32.2 kg/m2 [facility] 11-29-2023 13:03-0400 Body temperature 99.1 [degF] [facility] 11-29-2023 13:03-0400 Body weight 82.55 kg [facility] 11-29-2023 13:03-0400 Diastolic blood pressure 80 mm[Hg] [facility] 11-29-2023 13:03-0400 Heart rate 89 /min [facility] 11-29-2023 13:03-0400 Respiratory rate 20 /min [facility] 11-29-2023 13:03-0400 SaO2% (BldA) [Mass fraction] 97 % [facility] 11-29-2023 13:03-0400 Systolic blood pressure 122 mm[Hg] [facility] 03-01-2023 08:45-0400 Body height 160.02 cm Shawna Easterwood Other [facility] [employer] Other 03-01-2023 08:45-0400 Body mass index (BMI) [Ratio] 31.35 kg/m2 Shawna Easterwood Other [employer] Other 03-01-2023 08:45-0400 Body temperature 97.2 [degF] Shawna Easterwood Other [employer] Other 03-01-2023 08:45-0400 Body weight 80.29 kg Shawna Easterwood Other [employer] Other 03-01-2023 08:45-0400 Diastolic blood pressure 72 mm[Hg] Shawna Easterwood Other [employer] Other 03-01-2023 08:45-0400 Respiratory rate 20 /min Shawna Easterwood Other [employer] Other 03-01-2023 08:45-0400 SaO2% (BldA) [Mass fraction] 99 % Shawna Easterwood Other [employer] Other 08-29-2023 08:45-0400 Systolic blood pressure 118 mm[Hg] Shawna Healy Other [employer] Other 02-10-2023 03:15-0400 Diastolic blood pressure 81 mm[Hg] Shivam Antonio [facility] 02-10-2023 03:15-0400 Heart rate 67 /min Shivam Antonio [facility] 02-10-2023 03:15-0400 Mean blood pressure 93 mm[Hg] Shivam Antonio [facility] 02-10-2023 03:15-0400 Respiratory rate 17 /min Shivam Antonio [facility] 02-10-2023 03:15-0400 SaO2% (BldA) [Mass fraction] 96 % Shivam Antonio [facility] 02-10-2023 03:15-0400 Systolic blood pressure 118 mm[Hg] Shivam Antonio [facility] 02-10-2023 02:25-0400 Diastolic blood pressure 85 mm[Hg] Shivam Antonio [facility] 02-10-2023 02:25-0400 Heart rate 97 /min Shivam Antonio [facility] 02-10-2023 02:25-0400 Mean blood pressure 98 mm[Hg] Shivam Antonio [facility] 02-10-2023 02:25-0400 Respiratory rate 18 /min Shivam Antonio [facility] 02-10-2023 02:25-0400 SaO2% (BldA) [Mass fraction] 99 % Shivam Antonio [facility] 02-10-2023 02:25-0400 Systolic blood pressure 123 mm[Hg] Shivam Antonio [facility] 02-10-2023 01:55-0400 Diastolic blood pressure 78 mm[Hg] Shivam Alvarez [facility] 02-10-2023 01:55-0400 Heart rate 79 /min Shivam Alvarez [facility] 02-10-2023 01:55-0400 Mean blood pressure 90 mm[Hg] Shivam Alvarez [facility] 02-10-2023 01:55-0400 Respiratory rate 19 /min Shivam Alvarez [facility] 02-10-2023 01:55-0400 SaO2% (BldA) [Mass fraction] 98 % Shivam Alvarez [facility] 02-10-2023 01:55-0400 Systolic blood pressure 113 mm[Hg] Shivam Alvarez [facility] 02-10-2023 01:21-0400 Body temperature 98.96 [degF] Shivam Alvarez [facility] 02-10-2023 01:21-0400 Heart rate 88 /min Shivam Alvarez [facility] 12-28-2021 11:30-0400 Body height 160.02 cm [employer] Other [employer] Other 12-28-2021 11:30-0400 Body mass index (BMI) [Ratio] 28.87 kg/m2 [employer] Other [employer] Other 12-28-2021 11:30-0400 Body temperature 98.4 [degF] [employer] Other [employer] Other 12-28-2021 11:30-0400 Body weight 73.94 kg Shawna Healy Other [employer] Other 12-28-2021 11:30-0400 Diastolic blood pressure 82 mm[Hg] Shawna Healy Other [employer] Other 12-28-2021 11:30-0400 Respiratory rate 20 /min Shawna Healy Other [employer] Other 12-28-2021 11:30-0400 SaO2% (BldA) [Mass fraction] 99 % Shawna Healy Other [employer] Other 12-28-2021 11:30-0400 Systolic blood pressure 120 mm[Hg] Shawna Healy Other [employer] Other Encounters Encounter Date Encounter Type Care Provider Facility Start: 06-08-2024 ambulatory Juliana Llamas lity:James WALDROP Start: 05-28-2024 ambulatory MD DAMION MEHTA Facility:[facility] Start: 05-22-2024 End: 05-22-2024 Bamboo flowsheet Jessy CHAVEZ Work Phone: [facility] Start: 05-22-2024 End: 05-22-2024 Bamboo flowsheet Jessy CHAVEZ Work Phone: [facility] Start: 05-18-2024 End: 05-18-2024 Emergency department patient visit Shawna Healy 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 Work Phone: [facility] Work Phone: Start: 05-11-2024 Non-patient / Non-visit Shawna sheets 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 Work Phone: [facility] [place] Work Phone: Start: 05-10-2024 End: 05-10-2024 Emergency department patient visit Shawna Healy 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 Work Phone: [facility] Work Phone: Start: 05-09-2024 End: 05-09-2024 Office outpatient visit [...] Department Unsolicited Start: 05-08-2024 Non-patient / Non-visit 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 Sonia Healy Work Phone: [facility] Work Phone: Start: 05-08-2024 End: 05-08-2024 Departed Referred 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 Shawna Healy Work Phone: [facility] [place] Work Phone: Start: 05-08-2024 End: 05-08-2024 ambulatory 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 Shawna Jennifer Niraj Work Phone: [facility] Work Phone: Start: 05-08-2024 End: 05-08-2024 Patient encounter procedure 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 Shawna Del Riomadison Work Phone: [facility] Work Phone: Start: 05-05-2024 End: 05-06-2024 Emergency department patient visit Darwin SReese Irizarry [facility] Start: 05-05-2024 ambulatory KATHY-Tk Garcia acility:[facility] Start: 05-04-2024 Non-patient / Non-visit 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 D carmen Biart Work Phone: [facility] Work Phone: Start: 05-04-2024 End: 05-05-2024 Emergency department patient visit [place]AWNA [place] Facility: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 Work Phone: [facility] Comment on above: Dysuria (Primary Dx) ; Bladder spasms Start: 04-26-2024 End: 04-27-2024 Pre-admission assessment Luis Mckee [facility] Start: 04-23-2024 Non-patient / Non-visit 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 Work Phone: [facility] Work Phone: Start: 04-17-2024 End: 04-17-2024 Patient encounter procedure 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Pao Healy Work Phone: [facility] Work Phone: Start: 04-10-2024 ambulatory IRIS HEALY Fac ility:[facility] [place] Start: 04-06-2024 ambulatory DO Kaylinn Dokken Facil ity:James Start: 04-05-2024 End: 04-05-2024 ambulatory 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 Shawna Del Rioamelia Work Phone: [facility] Work Phone: Start: 03-23-2024 ambulatory DO Kaylinn Dokken Facil ity:[facility] [place] Start: 03-20-2024 End: 03-21-2024 Emergency department patient visit DO Jamesdemario Mccabe Facility:[facility] Start: 03-19-2024 End: 03-19-2024 ambulatory [facility] Work Phone: Start: 03-19-2024 End: 03-19-2024 Patient encounter procedure [facility] Work Phone: Start: 03-14-2024 Non-patient / Non-visit [facility] Work Phone: Start: 03-14-2024 End: 03-14-2024 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 SHAWNA DEL RIOAMELIA Facility:[facility] Start: 03-14-2024 End: 03-14-2024 Patient encounter procedure [facility]AW[facility] Start: 03-13-2024 End: 03-13-2024 ambulatory [facility] Work Phone: Start: 03-13-2024 End: 03-13-2024 Patient encounter procedure [facility] Work Phone: Start: 01-10-2024 End: 01-10-2024 ambulatory Juliana Barton Facility:[facility] Start: 01-10-2024 End: 01-10-2024 Patient encounter procedure Juliana Barton [facility] Start: 12-30-2023 End: 12-30-2023 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 RICH NUNEZ Facility:[facility] Tiffany le Start: 12-28-2023 End: 12-28-2023 Emergency department patient visit Mamta Us [facility] Start: 12-28-2023 End: 12-28-2023 Patient encounter procedure TAYA BALDERRAMA [facility] Start: 12-28-2023 End: 12-28-2023 ambulatory TAYA BALDERRAMA Facility:[facility] Start: 11-29-2023 End: 11-29-2023 ambulatory [facility] Work Phone: Start: 11-29-2023 End: 11-29-2023 Patient encounter procedure [facility] Work Phone: Start: 10-26-2023 End: 10-26-2023 ambulatory SIXTO Sonia ORELLANA Not Available Start: 04-06-2023 End: 04-06-2023 ambulatory Shawna Niraj Other [employer] Other Start: 04-06-2023 [facility] Start: 03-01-2023 End: 03-01-2023 ambulatory Shawna Jodywood Other [employer] Other Start: 03-01-2023 Office outpatient vi sit 25 [facility] Start: 03-01-2023 Telephone [facility] Start: 02-10-2023 End: 02-10-2023 Emergency department patient visit Shivam Alvarez [facility] Start: 12-28-2021 End: 12-28-2021 ambulatory Shawna Quangerwood Other [employer] Other Start: 12-28-2021 Encounter for genera l adult medical examination without abnormal findings [facility] Start: 12-28-2021 Initial preventive medicine new pt age 18-39yrs Shawna [facility] Start: 09-14-2021 End: 09-14-[address] BRAYAN ALLISON Facility:[facility] Procedures Date Procedure Procedure Detail Performing Clinician Start: 05-10-2024 CT of abdomen and pelvis without contrast Shawna Healy APRN Work Phone: Start: 05-10-2024 Bacteria identified in Blood by Culture Shawna Healy APRN Work Phone: Start: 05-09-2024 RECURRENT VAGINITIS (HTRX) Brayan Scott O Work Phone: Start: 05-09-2024 End: 05-09-2024 Urnls dip stick/tablet rgnt non-auto w/o micrscp Brayan Allison DO Work Phone: Start: 05-08-2024 Urine culture Shawna Healy APRN Work Phone: Start: 05-01-2024 URINARY TRACT INFECTION (HTRX) Sacha Montilla DO Work Phone: Start: 05-01-2024 Urnls dip stick/tablet rgnt auto w/o microscopy Sacha Montilla DO Work Phone: Start: 03-26-2024 Bacteria identified in Urine by Culture 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 Shawna Healy Work Phone: Start: 03-26-2024 Urine culture Shawna Healy APRN Work Phone: Start: 03-26-2024 Ultrasonography of bilateral kidneys 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 Shawna Healy Work Phone: Start: 03-14-2024 C Urine Start: 07-04-1998 Tonsillectomy and adenoidectomy Shivam Antonio History of tonsillectomy History of tonsillectomy and adenoidectomy Plan of Treatment Date Care Activity Detail Author Start: 06-07-2024 End: 06-07-2024 Patient encounter procedure 06/07/2024 3:00 PM EST Office Visit [facility] [address] [place] [phone] Sina Tobias DO [address] [place] [address] [address] Start: 05-22-2024 End: 05-22-2024 Patient encounter procedure [facility] Comment on above: Arrived Start: 05-18-2024 [facility] Start: 05-17-2024 End: 05-17-2024 Professional / ancillary services management 05/17/2024 9:30 AM EST Ancillary Procedure [facility] [address] [place] [id number] [facility] Start: 05-09-2024 End: 05-09-2024 Patient encounter procedure [facility] Comment on above: Arrived Start: 05-09-2024 End: 05-09-2025 SURESWAB(R) ADVANCED VAGINITIS PLUS, TMA SURESWAB(R) ADVANCED VAGINITIS PLUS, TMA Pathology and Cytology Routine Pelvic pain in female Expected: 05/09/2024 (Approximate), Expires: 05/09/2025 [facility] Work Phone: Comment on above: Expected: 05/09/2024 (Approximate), Expires: 05/09/2025 Start: 05-09-2024 End: 05-09-2025 US for US PELVIS-TRANSVAG IF INDICATED Imaging Routine Pelvic pain in female Expected: 05/09/2024 (Approximate), Expires: 05/09/2025 [facility] Comment on above: Expected: 05/09/2024 (Approximate), Expires: 05/09/2025 Start: 05-08-2024 Bacteria identified in Urine by Culture Urine Culture [facility] Start: 05-08-2024 Patient referral [facility] Work Phone: Start: 05-08-2024 End: 05-08-2024 Urine culture [facility] Start: 05-08-2024 [facility] Start: 03-26-2024 Bacteria identified in Urine by Culture [facility] Bacteria identified in Urine by Culture [facility] Bacteria identified in Urine by Culture [facility] Cefuroxime free [Mass/volume] in Serum or Plasma [facility] CHLAMYDIA TRACHOMATI S (GENITO/STI) CHLAMYDIA TRACHOMATIS (GENITO/STI) Lab Routine Pelvic pain in female Ordered: 05/09/2024 [facility] Comment on above: Ordered: 05/09/2024 Chlamydia trachomati s DNA [Presence] in Unspecified specimen by TOM with probe detection [facility] MR Unspecified body region [facility] Neisseria gonorrhoea e DNA [Presence] in Unspecified specimen by TOM with probe detection Neisseria gonorrhea DNA probe, direct Lab Routine Pelvic pain in female Ordered: 05/09/2024 [facility] Comment on above: Ordered: 05/09/2024 Neisseria gonorrhoea e DNA [Presence] in Unspecified specimen by TOM with probe detection [facility] Patient Education [facility] Work Phone: Patient referral [facility] Work Phone: Rheumatoid factor [Units/volume] in Serum or Plasma [facility] Thiamine [Moles/volu me] in Blood [facility] Trichomonas vaginali s DNA [Presence] in Unspecified specimen by TOM with probe detection [facility] Urine culture [facility] XR Lumbar spine Views [facility] Immunizations Immunization Date Immunization Notes Care Provider aGbe jimenez NEGATED: Highlighted row has not occurred! 4 influenza, injectable, quadrivalent, contains preservative Shawna Healy 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 Work Phone: [facility] NEGATED: Highlighted row has not occurred! 4 influenza, injectable, quadrivalent, preservative free Patient Objection Shawna Healy Other [employer] Other Payers Date Payer Category Payer Self-pay [id number] 2023 [facility] [id number] 2023 Unknown 2017 Private Health Insurance [facility] MEDICAID [id number] 2017 Unknown [id number] 2014 Medicaid [id number] 1994 Unknown [id number] 2.16840.1.701532.3.579.2 .593 1994 Unknown [id number] 2.16840.1.313608.3.579.2 .727 1994 Unknown [id number] 2.16.840.1.690281.3.579.2 .727 1994 Unknown [id number] 2.16.840.1.597737.3.579.2 .727 1994 Unknown [id number] 2.16840.1.613273.3.579.2 .727 1994 Unknown [id number] 2.16.840.1.028930.3.579.2 .727 1994 Unknown [id number] 2.16.840.1.954633.3.579.2 .727 1994 Unknown [id number] 2.16.840.1.250228.3.579.2 .727 1994 Unknown [id number] 2.16.840.1.904350.3.579.2 .727 1994 Unknown [id number] 2.16840.1.088582.3.579.2 .727 1994 Unknown [id number] 2.16.840.1.677316.3.579.2 .727 1994 Unknown [id number] 2.16.840.1.191878.3.579.2 .72 1994 Unknown [id number] 2.16.840.1.434104.3.579.2 .72 1994 Unknown [id number] 2.16.840.1.973801.3.579.2 .72 1994 Unknown [id number] 2.16.840.1.251503.3.579.2 .1994 Unknown [id number] 2.16.840.1.635789.3.579.2 .1994 Unknown [id number] 2.16.840.1.604551.3.579.2 .1994 Unknown [id number] 2.16.840.1.716700.3.579.2 .1994 Unknown [id number] 2.16.840.1.605025.3.579.2 .1994 Unknown [id number] 2.16.840.1.595018.3.579.2 .1258 1994 Unknown [id number] 2.16.840.1.610848.3.579.2 .125 1994 Unknown [id number] 2.16.840.1.244241.3.579.2 .1259 1994 Unknown [id number] 2.16.840.1.917601.3.579.2 .125 1994 Unknown [id number] 2.16.840.1.860882.3.579.2 .72 1994 Unknown [id number] 2.16.840.1.633152.3.579.2 .727 1959 Unknown [id number] Unknown [id number] 2.16.840.1.034646.3.579.2 .531 Unknown [id number] 2.16.840.1.973207.3.579.2 .531 Unknown [id number] 2.16.840.1.986585.3.579.2 .531 Unknown [id number] 2.16.840.1.776093.3.579.2 .531 Worker's Compensation [employer] Self [employer] [facility] [id number] Social History Date Type Detail Facility Start: 10-26-2023 End: 05-01-2024 Sex Assigned At [facility] Start: 02-16-2021 End: 10-26-2023 Tobacco smoking status Never smoked tobacco (finding) [facility] Tobacco smoking status Never [facility] Start: 1995 Sex Assigned At Female F [facility] Tobacco [facility] Comment on above: denies Tobacco smoking status No Smoking Status Entered [facility] Start: 10-26-2023 Tobacco use and exposure Smokeless tobacco non-user [facility] Start: 05-01-2024 End: 05-09-2024 Alcoholic beverage intake Lifetime non-drinker (finding) [facility] Start: 10-26-2023 End: 05-01-2024 History of Social function [facility] Start: 1995 Sex assigned at Not on file [facility] Start: 05-18-2024 Sex Female (finding) [facility] NEGATED: Highlighted row [facility] Functional Status Date Assessment Result Facility 05-05-2024 Functional Status N/A [facility] 05-02-2024 Functional Status N/A [facility] 04-05-2024 Functional Status N/A [facility] 01-10-2024 Functional Status N/A [facility] 12-28-2023 Functional Status N/A [facility] 08-10-2023 Functional Status N/A Rene - T [facility] Clinical Notes 12-28-2021 to 05-09-2024 Tami [...] Medication Instructions ergocalciferol (Vitamin D2) 1.25 MG (95510 UT) capsule TAKE 1 CAPSULE BY MOUTH [...] nursing note reviewed. Exam conducted with a chief recordist present. Vitals: Estimated body mass index is [...] Brayan Allison DO documented in this encounter [facility] 05-06-2024 Hospital Discharg e instructions Patient Education [...] Treatment for this condition includes: Antibiotic medicine. Tnnc-nlf-ffmztka medicines to treat discomfort. Drinking enough water [...] Follow these instructions at home: Medicines Take xmqj-ckj-cjvwlkb and prescription medicines only as told by [...] provider. Document Revised: 01/25/2021 Document Reviewed: 01/30/2021 [employer] Patient Education 2023 [employer] 05/06/2024 00:17:32 General Headache Without Cause General [...] help with your condition: Managing pain Take juwk-qps-zpkgida and prescription medicines only as told by [...] Document Reviewed: 11/18/2021 [employer] Patient Education 2023 [employer]. Follow Up Care 05/05/2024 20:54:37 With:SHAWNA HEALY Address: [facility] [phone] Business (1) When:Within 3 Day(s) [facility] 05-06-2024 Note ED Patient Education Note Neurology [...] with your condition: Managing pain ??? Take khkm-lci-bqsktlz and prescription medicines only as told by [...] provider. Document Revised: 11/18/2021 Document Reviewed: 11/18/2021 [employer] Patient Education ? 2023 [employer]. Obstetrics and Gyneco (more content not included)... [facility] 05-05-2024 Evaluation + Plan note Extrac gemini [...] nausea/vomiting, # 10 tab(s), Refills(s) 0, Pharmacy: [id number], 160, cm, 05/05/24 21:07:00 EDT, Height/Length Dosing, 82.5, kg, 05/05/24 21:07:00 EDT, Weight Dosing Future Appointments Appointment Date:05/07/2024 03:30:00 PM Scheduled Provider: Location:[facility] Appointment Type:ASU IV Antibiotic (FT) Appointment Date:05/08/2024 03:30:00 PM Scheduled Provider: Location:[facility] Appointment Type:ASU IV Antibiotic (FT) Appointment Date:05/09/2024 08:00:00 AM Scheduled Provider: Location:[facility] Appointment Type:ASU IV Antibiotic (FT) Appointment Date:05/22/2024 08:15:00 AM Scheduled Provider:Luis Mckee MD Location:.[facility]iology Clinic Appointment Type:Cardiology New Patient (FT) [facility] 10-31-2024 Hospital Discharge instructions Patient Education 05/02/2024 [...] Follow these instructions at home: Medicines Take rbum-str-knefltt and prescription medicines only as told by [...] provider. Document Revised: 04/06/2023 Document Reviewed: 04/06/2023 [employer] Patient Education 2023 [employer]. 05/02/2024 23:15:43 Urinary Tract Infection, Adult Urinary [...] Treatment for this condition includes: Antibiotic medicine. Qork-lrg-uumhkhb medicines to treat discomfort. Drinking enough water [...] Follow these instructions at home: Medicines Take dbcx-fyg-xhyaiqb and prescription medicines only as told by [...] provider. Document Revised: 01/25/2021 Document Reviewed: 01/30/2021 [employer] Patient Education 2023 [employer]. Follow Up Care 05/02/2024 18:54:57 With:Lev LACKEY Address: [address] [address]- Business (1) When:05/05/2024 With:SHAWNA HEALY Address: [address] [place] [phone] Business (1) When:05/05/2024 [facility] 10-30-2024 NoteED Patient Education Note Gastroenterology Abdominal [...] these instructions at home: Medicines ??? Take iiwb-ezf-gomevpk and prescription medicines only as told by [...] provider. Document Revised: 04/06/2023 Document Reviewed: 04/06/2023 [employer] Patient Education ? 2023 [employer] Obstetrics and Gynecology Urinary Tract Infection, Adult [...] condition includes: ??? Antib (more content not included)...[facility]10-29-2024 History of Present illness Narrative* Dara Aviles [...] Protein: Negative PH: 6.0 Blood: Negative Specific [place]: 1.020 Ketone: Negative Glucose: Negative Neg Neg [...] further questions or concerns. documented in this encounterFreeman Health [id number] Evaluation note* Author Shawna [facility] Authored March 21, 2024 4:47pm Before the [...] ultrasound and follow-up with urology. Author Shawna [facility] Authored March 16, 2024 10:46am *Progress note was completed with the assistance of voice recognition software for dictation purposes. Please excuse any grammatical errors that were not corrected during review process. [facility] Work Phone: 1(160) 492-403409-18-2024 Evaluation note* Author Shawna [facility] Authored March 21, 2024 3:47pm Before the locking of this p rogress [...] and follow-up with urology. Author Shawna Healy [facility] Authored March 16, 2024 9:46am *Progress note was completed with the assistance of voice recognition software for dictation purposes. Please excuse any grammatical errors that were not corrected during review process. [facility] Work Phone: 1(612) 460-508009-18-2024 NoteED Patient Education Note Gastroenterology Nausea, Adult [...] ? Low-calorie sports drinks. ? Eat bland, pssj-fj-feuhhu foods in small amounts as you are able, such as: ? Bananas. ? Applesauce. ? Rice. ? Low-fat (lean) meats. ? [place]. ? Crackers. ? Avoid drinking fluids that have a lot of sugar or caffeine in them. This includes energy drinks, sports drinks, and soda. ? Avoid alcohol. ? Avoid spicy or fatty foods. General instructions ? Take wkac-wpv-yfvmqun and prescription medicines only as told by [...] cannot use soap and water, use hand government service executive. ? Make sure that everyone in your [...] drink what your doctor tells you. Take hspl-eku-rmairci and prescription medicines only as told by [...] provider. Document Revised: 12/25/2021 Document Reviewed: 12/25/2021 [employer] Patient Education ? 2023 [employer]. Orthopedics Pain Without a Known Cause Pain [...] these instructions at home: Medicines ? Take nzxc-rpk-pduyjqr and prescription medicines only as (more content not included)...[facility]09-13-2024 Evaluation note* Author Shawna Healy [facility] Authored March 16, 2024 10:46am *Progress note was completed with the assistance of voice recognition software for dictation purposes. Please excuse any grammatical errors that were not corrected during review process. [facility] Work Phone: [phone]) 939-403906-26-2024 Hospital Discharge instructions Patient Education 12/28/2023 15:06:07 Nausea, Adult, Nnlu-si-Mbie Nausea, Adult Nausea is feeling like you [...] fruit juice). ?Low-calorie sports drinks. Eat bland, wmkj-qu-yfgbaz foods in small amounts as you are able, such as: ?Bananas. ?Applesauce. ?Rice. ?Low-fat (lean) meats. ?T[place]in. ?Crackers. Avoid drinking fluids that have a lot of sugar or caffeine in them. This includes energy drinks, sports drinks, and soda. Avoid alcohol. Avoid spicy or fatty foods. General instructions Take kwpi-pjg-ibnjnaq and prescription medicines only as told by [...] cannot use soap and water, use hand government service executive. Make sure that everyone in your home [...] drink what your doctor tells you. Take rfnj-vho-jecbimt and prescription medicines only as told by your doctor. Contact a doctor right away if your symptoms get worse or you have new symptoms. Keep all follow-up visits. This information is not intended to replace advice given to you by your health care provider. Make sure you discuss any questions you have with your health care provider. Document Revised: 12/25/2021 Document Reviewed: 12/25/2021 [employer] Patient Education 2022 [employer]. 12/28/2023 15:06:07 Abdominal Pain, Adult Abdominal Pain, [...] Follow these instructions at home: Medicines Take gjip-dtk-dbltpqo and prescription medicines only as told by [...] Watch your condition for any changes. Take qlvw-rag-falogff and prescription medicines only as told by [...] provider. Document Revised: 08/08/2020 Document Reviewed: 10/29/2019 [employer] Patient Education 2022 [employer]. Follow Up Care 12/28/2023 10:37:02 With:Juliana Barton Address: [address], [address] [place] [phone] Business (1) When:12/31/2023 14:48:18 Comments:Call for diagnosis based follow up With:SHAWNA HEALY Address: [address] [place] [address] [phone] Business (1) When:12/31/2023 14:47:44 Comments:Call Dr for diagnosis based follow up [facility] [id number] Evaluation + Plan noteExtracted from: Title:ED Note Author:Fredi WEBB, Jose Navas te:12/28/23 Diarrhea (R19.7: Diarrhea, u nspecified) Nausea (R11.0: Nausea) Pain in the abdomen (R10.9: Unspecified abdominal pain) Orders: dicyclomine, 10 mg = 1 cap(s), Oral, QID, X 7 day(s), # 28 cap(s), Refills(s) 0, [id number], 160, cm, 12/28/23 10:54:00 EDT, Height/Length Dosing, 81.7, kg, 12/28/23 10:54:00 EDT, Weight Dosing ketorolac, 30 mg = 1 mL, Injection, IV Push, Once, Stop date 12/28/23 12:53:00 EDT, STAT, Start date 12/28/23 12:53:00 EDT, 12/28/23 12:53:00 EDT ondansetron, 4 mg = 1 tab(s), Oral, q8hr, PRN Nausea/Vomiting, # 20 tab(s), Refills(s) 0, [facility]acy: [facility] #[id number], 160, cm, 12/28/23 10:54:00 EDT, Height/Length Dosing, [...] Daily, # 30 tab(s), Refills(s) 0, Pharmacy: [facility] #[id number], 160, cm, 12/28/23 10:54:00 EDT, Height/Length Dosing, 81.7, kg, 12/28/23 10:54:00 EDT, Weight Dosing Sodium Chloride 0.9% intravenous solution, 1,000 mL, Soln-IV, IV, Once, Stop date 12/28/23 12:53:00 EDT, STAT, Start date 12/28/23 12:53:00 EDT, Infuse over 61, minute(s) sucralfate, 1 gm = 1 tab(s), Oral, QID, X 7 day(s), # 28 tab(s), Refills(s) 0, Pharmacy: [facility] #[id number], 160, cm, 12/28/23 10:54:00 EDT, Height/Length Dosing, 81.7, kg, 12/28/23 10:54:00 EDT, Weight Dosing CT Abdomen/Pelvis w/ Contrast Future Appointments Appointment Date:01/10/2024 01:30:00 PM Scheduled Provider:Juliana Barton MD Location:[facility] Dig[facility]ive Health Appointment Type:[facility]08-29-2023 Evaluation note* Encounter Date Diagnosis Assessment [...] patients require daily miralax, however not recommended usp. 6. If no bowel movement in 5-7 [...] patients require daily miralax, however not recommended usp. 6. If no bowel movement in 5-7 [...] that were not corrected during review process. [facility] Other 08-10-2023 Evaluation + Plan noteExtracted from: Title:ED Note Author:Shivam Alvarez DO Date: Acute right flank pain (R10. 9: Unspecified abdominal pain) Ordered: oxycodone, 5 mg = 1 cap(s), Oral, q6hr, PRN Pain 8-10, # 4 cap(s), Refills(s) 0, Pharmacy: [facility] #[id number], 160, cm, 02/10/23 1:25:00 EDT, Height/Length Dosing, 81.4, kg, 02/10/23 1:25:00 EDT, Weight Dosing Orders: ketorolac, 15 mg = 1 mL, Injection, IV Push, Once, Stop date 02/10/23 1:46:00 EDT, STAT, Start date 02/10/23 1:46:00 EDT, 02/10/23 1:46:00 EDT naproxen, 500 mg = 1 tab(s), Oral, BID, PRN for pain, # 20 tab(s), Refills(s) 0, [facility]acy: [facility] #[id number], 160, cm, 02/10/23 1:25:00 EDT, Height/Length Dosing, 81.4, kg, 02/10/23 1:25:00 EDT, Weight Dosing ondansetron, 4 mg = 1 tab(s), Oral, q8hr, PRN Nausea/Vomiting, # 12 tab(s), Refills(s) 0, Pharmacy: [facility] #[id number], 160, cm, 02/10/23 1:25:00 EDT, Height/Length Dosing, [...] Diagnostic Tests Pending * Urine Culture 02/10/23 [facility]08-10-2023 Hospital Discharge instructions Patient Education 02/10/2023 [...] told by your health care provider. Take wmow-xdn-cybccvg and prescription medicines only as told by [...] provider. Document Revised: 08/31/2021 Document Reviewed: 08/31/2021 [employer] Patient Education 2022 [employer]. Follow Up Care 02/10/2023 01:19:58 With:Lev LACKEY Address: [address] [phone] Business (1) When:02/13/2023 Comments:Strain urine. Take pain medication as prescribed. Follow-up with urology [facility]06-27-2022 Evaluation note* Encounter Date Diagnosis Assessment [...] chronic med management and referra lto counseling. [facility] Other Evaluation + Plan note Future Appointments Appointment Date:01/10/2024 01:30:00 PM Scheduled Provider:Juliana Barton MD Location:[facility] Digestive Health Appointment Type:[facility] New Patient [facility] Evaluation + Plan note Future Appointments Appointment Date:04/12/2024 08:45:00 AM Scheduled Provider:Juliana Barton MD Location:[facility] Appointment Type:[facility] Follow Up [facility] Digestive [facility] Evaluation + Plan note Future Appointments Appointment Date:04/12/2024 08:45:00 AM Scheduled Provider:Juliana Barton MD Location:[facility] Digestive [facility] Appointment Type:[facility] Follow Up Diagnostic Tests Pending * PTH Intact 03/14/24 * Vitamin B1 03/14/24 * Urine Culture 03/14/24 [facility] Evaluation + Plan note Future Appointments Appointment Date:04/26/2024 08:15:00 AM Scheduled Provider:Luis [facility] New Patient (FT) Diagnostic Tests Pending * CARMEN w/Reflex if POS 04/21/24 * Rheumatoid Factor Quantitative 04/21/24 * Lyme Antibodies w/rflx to IgG/IgM 04/21/24 [facility] Evaluation + Plan noteExtracted from: Title:ED Note Author:Connor Zimmerman PA-C te:05/03/24 Abdominal pain (R10.9: Unspe cified abdominal pain) Constipation (K59.00: Constipation, unspecified) Nausea & vomiting (R11.2: Nausea with vomiting, unspecified) UTI (urinary tract infection) (N39.0: Urinary tract infection, site not specified) Orders: acetaminophen-hydrocodone, 1 tab(s), Oral, q6hr for pain for 3 day(s), 8 tab(s), Refill(s) 0, [facility] #[id number], 160, cm, 05/02/24 19:02:00 EDT, Height/Length Dosing, 82.5, kg, 05/02/24 19:02:00 EDT, Weight Dosing cephalexin, 500 mg = 1 cap(s), Cap, Oral, Once, Stop date 05/02/24 22:43:00 EDT, STAT, Start date 05/02/24 22:43:00 EDT, 05/02/24 22:43:00 EDT cephalexin, 500 mg = 1 cap(s), Oral, q12hr, X 7 day(s), # 14 cap(s), Refills(s) 0, Pharmacy: [facility] #[id number], 160, cm, 05/02/24 19:02:00 EDT, Height/Length Dosing, 82.5, kg, 05/02/24 19:02:00 EDT, Weight Dosing docusate, 100 mg = 1 cap(s), Oral, BID, # 20 cap(s), Refills(s) 0, Pharmacy: [facility] #[id number], 160, cm, 05/02/24 19:02:00 EDT, Height/Length Dosing, 82.5, kg, 05/02/24 19:02:00 EDT, Weight Dosing ketorolac, 30 mg = 1 mL, Injection, IV Push, Once, Stop date 05/02/24 19:27:00 EDT, STAT, Start date 05/02/24 19:27:00 EDT, 05/02/24 19:27:00 EDT magnesium citrate, 8.725 gm, 150 mL, Oral, Once, 300 mL, Refill(s) 0, Once daily until BM, [facility] #[id number], 160, cm, 05/02/24 19:02:00 EDT, Height/Length Dosing, 82.5, kg, 05/02/24 19:02:00 EDT, Weight Dosing morphine, 4 mg = 1 mL, Injection, IV Push, Once, Stop date 05/02/24 22:12:00 EDT, STAT, Start date 05/02/24 22:12:00 EDT, 05/02/24 22:12:00 EDT naproxen, 500 mg = 1 tab(s), Oral, BID, X 10 day(s), # 20 tab(s), Refills(s) 0, Pharmacy: [facility] #[id number], 160, cm, 05/02/24 19:02:00 EDT, Height/Length Dosing, 82.5, kg, 05/02/24 19:02:00 EDT, Weight Dosing ondansetron, 4 mg = 1 tab(s), Oral, q6hr, # 12 tab(s), Refills(s) 0, Pharmacy: [facility] #[id number], 160, cm, 05/02/24 19:02:00 EDT, Height/Length Dosing, [...] Daily, # 10 EA, Refills(s) 0, Pharmacy: [facility] #[id number], 160, cm, 05/02/24 19:02:00 EDT, Height/Length Dosing, 82.5, kg, 05/02/24 19:02:00 EDT, Weight Dosing Basic Metabolic Panel CBC w/ Auto Diff CT Abdomen/Pelvis w/ Contrast eGFR Extra Blue Tube Extra SST Tube Hepatic Function Panel Lipase Level Diagnostic Tests Pending * Urine Culture 05/02/24 [facility] Evaluation noteNo [facility] [employer] Other Evaluation noteNo assessment information available [facility] Work Phone: Evaluation note* Diagnosis Onset Date Resolution Status Dysuria acute Low back pain acute [facility] Work Phone: Evaluation note* Diagnosis Dysuria- Primary Bladder spasms Hypertonicity of bladder documented in this encounter [facility] HealthcareEvaluation note* Diagnosis Pelvic pain in female Unspecified symptom associated with female genital organs Breast pain Mastodynia Vaginal odor Unspecified symptom associated with female genital organs Acute bilateral low back pain with bilateral sciatica documented in this encounter [facility] HealthcareHistory general Narrative - Reported* Type Description Date Surgical History Tonsillectomy and adenoidectomy 1998 Hospitalization History Childbirth (2) [facility] Other History general Narrative - Reported* Type Description Date Medical History Hemorrhoid Medical History Chronic idiopathic constipation Surgical History Tonsillectomy and adenoidectomy 1998 Hospitalization History Childbirth (2) [facility] Other Hospital course Narrative No data available for this section [facility] No data available for this section [facility] Hospital Discharge instructions Additional Instructions Take omeprazole daily as prescribed. Take Carafate as prescribed for abdominal discomfort. Take Zofran as prescribed for nausea. Avoid any spicy or acidic foods NSAIDs such as motrin or aleve or alcohol which may make your symptoms worse. Follow-up with the GI doctor listed below for ongoing evaluation and management. Follow-up with your OB doctor for ongoing management of your pelvic pain.[facility] Work Phone: Progress note No data available for this section [facility] Summary Purpose Family History Relationship Condition [...] Painful paresthesia Proteinuria UTI (urinary tract infection) Chief Complaint Admit Date dizziness, foot numbness March 13, 2024 3:31pm 2 week follow up March 19, 2024 2:43pm R31.9 R80.9 March 26, 2024 8:28am Follow up - several concerns April 3:33pm Amb Documentation May 03, 2024 2 :35pm R30.0 May 08, 2024 1 2:00pm Amb Documentation May 08, 2024 2 :41pm blood in urine,low back pain May 6:44pm Amb Documentation May 11, 2024 9 :54am stomach pain May 18, 2024 10:28am Reason for Visit Admit Date Abdominal pain March 13, 2024 3:31pm Anxiety about health March 13 3:31pm Chest pain March 13, 2024 3:31pm Dysuria March 13, 2024 3:31pm Fatigue March 13, 2024 3:31pm Low back pain March 13, 2024 3:31pm Neuropathic pain March 13, 2024 3:31pm Abdominal pain March 19, 2024 2:43pm Anxiety about health March 19 2:43pm Hematuria March 19, 2024 2:43pm Low back pain March 19, 2024 2:43pm Neuropathic pain March 19, 2024 2:43pm Proteinuria March 19, 2024 2:43pm Vaginal itching March 19, 2024 2:43pm Vitamin D deficiency March 19 2:43pm Fatigue April 17, 2024 3 :33pm Blurred vision, bilateral May 08, 2024 11:55am Dizziness May 08, 2024 1 1:55am Facial numbness May 08, 2024 1 1:55am Hematuria May 08, 2024 1 1:55am Intractable migraine May 08, 2024 11:55am Low back pain May 08, 2024 1 1:55am Painful paresthesia May 08, 2024 1 1:55am Proteinuria May 08, 2024 1 1:55am UTI (urinary tract infection) May 082023 11:55am Additional Source Comments INFORMATION SOURCE (unrecogn ized section and content) DATE CREATED AUTHOR 09/20/2021 [facility] DATE CREATED AUTHOR AUTHOR'S ORGANIZ ATION 12/29/2023 Edgard Machdao [facility] DATE CREATED AUTHOR AUTHOR'S ORGANIZ ATION 01/01/2024 [facility] DATE CREATED AUTHOR AUTHOR'S ORGANIZ ATION 03/16/2024 [facility] DATE CREATED AUTHOR AUTHOR'S ORGANIZ ATION 03/17/2024 [facility] DATE CREATED AUTHOR AUTHOR'S ORGANIZ ATION 03/18/2024 [facility] DATE CREATED AUTHOR AUTHOR'S ORGANIZ ATION 03/22/2024 [facility] DATE CREATED AUTHOR AUTHOR'S ORGANIZ ATION 03/23/2024 [facility] DATE CREATED AUTHOR AUTHOR'S ORGANIZ ATION 04/06/2024 [facility] DATE CREATED AUTHOR AUTHOR'S ORGANIZ ATION 04/23/2024 [facility] DATE CREATED AUTHOR AUTHOR'S ORGANIZ ATION 04/25/2024 [facility] DATE CREATED AUTHOR AUTHOR'S ORGANIZ ATION 05/04/2024 [facility] DATE CREATED AUTHOR AUTHOR'S ORGANIZ ATION 05/10/2024 [facility] DATE CREATED AUTHOR AUTHOR'S ORGANIZ ATION 05/11/2024 [facility] DATE CREATED AUTHOR AUTHOR'S ORGANIZ ATION 05/13/2024 [facility] DATE CREATED AUTHOR AUTHOR'S ORGANIZ ATION 05/20/2024 [facility] DATE CREATED AUTHOR AUTHOR'S ORGANIZ ATION 05/21/2024 [facility] REASON FOR VISIT (unrecogniz ed section and content) Reason Comments Pelvic Pain Care Teams (unrecognized sec tion and content) 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 [facility] [employer] [facility]. provides no warranty or guarantee of the accuracy or completeness of information in this document.
== END 2024-05-22 21:27 | disposition home or self-care (01) ==
LOC: LAB 21:26
PROVIDERS: Visit Provider Physician Assistant
DX: Z01.419 Encounter for gynecological examination (general) (routine) without abnormal findings (principal)
CPT/HCPCS: 87624; 88175